=== PATIENT | male | born 1955 | race Caucasian/White ===

== ENCOUNTER 2020-05-01 13:04 | Emergency (ER) | payer OTHER, SELFPAY ==
[2020-05-01 13:10] VITALS: BP 125/66; PULSE 60; RESP 17; TEMP 36.5; O2SAT 94; BMI 29.8
--- NOTE | 2020-05-01 13:15 | XR_ITS ---
EXAMINATION: XR KNEE, LEFT CLINICAL INFORMATION: Fall, trauma, pain COMPARISON: None TECHNIQUE: Left knee is imaged in 3 views. FINDINGS: There is large suprapatellar effusion. The AP view shows focal subtle irregularity of the articular surface lateral tibial plateau which may represent occult fracture. There are no other fractures demonstrated. Hoffa's fat pad appears normal. There is borderline lateralization patella with mild lateral tilting patella. Atherosclerotic calcifications seen vasculature. XR/XR knee LT 3V IMPRESSION: 1. Large suprapatellar effusion. Subtle irregularity articular surface lateral tibial plateau may represent occult fracture. 2. Mild lateral tilting patella.
--- NOTE | 2020-05-01 14:16 | ED_ITS ---
HPI - Extremity Injury (Lower) General Chief Complaint: Extremity Injury, Lower Stated Complaint: Fall, knee pain Time Seen by Provider: 05/01/20 13:15 Source: patient Mode of arrival: wheelchair Limitations: no limitations History of Present Illness HPI Narrative: presenting with left knee pain after some fall yesterday. States left knee slightly more swollen. Pain with ambulation. Injury occurred due to slip and fall onto the knee. Denies any ot MD complaint: knee injury Severity: moderate Relieving factors: nothing Exacerbating factors: nothing Context: fall and direct blow Other symptoms: none Treatments prior to arrival: cold therapy Related Data Previous Rx's Medication Instructions Recorded oxycodone 5 mg PO BID PRN #10 tab 05/01/20 Allergies Allergy/AdvReac Type Severity Reaction Status Date / Time No Known Allergies Allergy Verified 05/01/20 13:13 Review of Systems Review of Systems: Constitutional: No Weight loss, No Fever, No Chills, No Night Sweats, No Fatigue, No Malaise ENT/Mouth: No Hearing loss, No Ear Pain, No Nasal Congestion, No Sinus Pain, No Hoarseness, No sore throat, No Rhinorrhea, No Swallowing Difficulty Eyes: No Eye Pain, No Swelling, No Redness Cardiovascular: No Chest Pain, No SOB, No Dyspnea on Exertion, No Orthopnea, No Edema, No Palpitations Respiratory: No Cough, No Sputum, No Wheezing, No Smoke Exposure, No Dyspnea Gastrointestinal: No Nausea, No Vomiting, No Diarrhea, No Constipation, No abdom inal Pain, No Hematochezia, No Melena Genitourinary: no irregular bleeding, No Dysuria, No Urinary Frequency, No Hematuria, No Urinary Incontinence, No Urgency, No Flank Pain, No Urinary Flow Changes, No Hesitancy Musculoskeletal: No joint pain, No Myalgias Skin: No Skin Lesions, No rash Neuro: No Weakness, No Numbness, No Paresthesias, No Loss of Consciousness, No Dizziness, No Headache Psych: No Social Issues Heme/Lymph: No Bruising, No Bleeding,No Lymphadenopathy Endocrine: No Polyuria, No Polydipsia, No Temperature Intolerance Yes all other systems are reviewed and are negative [facility] Past Medical History Attestation statement: The following information was validated with the patient. Medical History (Updated 05/01/20 @ 16:47 by Harpreet Gomez NP) Diabetes High blood pressure Hyperlipidemia Surgical History (Updated 05/01/20 @ 13:12 by Rachel Steel RN) Hx of heart artery stent Social History Social History Advance Directives: No Advance Directives Information Provided: No Physical Exam Vital Signs: Vital Signs: Vital Signs Temp Pulse Resp BP Pulse Ox 05/01/20 15:11 96.7 F L 49 L 16 125/60 97 05/01/20 13:10 97.7 F 60 17 125/66 94 Body Mass Index 29.8 Reviewed Const: General: cooperative and healthy appearing; No acute distress or intoxicated appearing Nutritional Appearance: average body habitus Orientation/consciousness: patient oriented x3 HENMT: Head: Yes normal to inspection Ears: hearing grossly normal bilaterally Eyes: General: appearance normal, both eyes and all related structures Visual Marin: normal visual marin by confrontation Neck: Neck: Yes normal visual inspection and No tender Thyroid: Thyroid normal Chest: Chest palpation & inspection: normal inspection of the chest Resp: Effort & Inspection: normal respiratory effort Cardio: Jugular venous distension: no JVD GI: Inspection: Yes normal to inspection Percussion: Yes normal to percussion Auscultation: normal bowel sounds : General: Yes no CVA tenderness Back/Spine/Pelvis: Back: no CVA tenderness Skin: General skin exam: no rashes or lesions noted Neuro: General: patient oriented x3 Extrem: Elbow/forearm/wrist images: 1. Slightly noticeable knee effusion. MDM - Extremity Injury (Lower) MDM Narrative Medical decision making narrative: X-ray reviewed with ortho on-call recommendation for CT of the knee rule out subtle fracture. CT was done with out acute findings as noted aside from a knee fusion. Patient was placed in knee immobilizer with instructions follow-up with orthopedics. Differential Diagnosis Differential diagnosis: Unlikely ankle sprain and strain, fracture of femur, fracture of hip, puncture wound of foot, fracture of toe and ankle fracture Imaging Data Knee CT: Radiologist's impression: Kvng Ayala Jr 64 M [address] [address] XRay Report Signed Patient: LucyKvng Liz Jr#: [id number] : 7Acct:[id number] Age/Sex: 64 / MADM Date: 05/01/20 Loc: HO.ED Attending Dr: Ordering Physician: Harpreet Gomez NP Date of Service: 05/01/20 Procedure(s): XR knee LT 3V Accession Number(s): [id number] cc: Harpreet Gomez TRAVEL CONSULTANT~ EXAMINATION: XR KNEE, LEFT CLINICAL INFORMATION: Fall, trauma, pain COMPARISON: None TECHNIQUE: Left knee is imaged in 3 views. FINDINGS: There is large suprapatellar effusion. The AP view shows focal subtle irregularity of the articular surface lateral tibial plateau which may represent occult fracture. There are no other fractures demonstrated. Hoffa's fat pad appears normal. There is borderline lateralization patella with mild lateral tilting patella. Atherosclerotic calcifications seen vasculature. XR/XR knee LT 3V IMPRESSION: 1. Large suprapatellar effusion. Subtle irregularity articular surface lateral tibial plateau may represent occult fracture. 2. Mild lateral tilting patella. Dictated By:RUDI MONZON MD Signed By:<Electronically signed by RUDI MONZON MD in OV>05/01/20 1348 DD/ 1315 TD/TT: Director Clinical Applications: [place] [address] CT Scan Report Signed Patient: Kvng Ayala [facility]#: [id number] : [id number]:[id number] Age/Sex: 64 / MADM Date: 05/01/20 Loc: HO.ED Attending Dr: Ordering Physician: Harpreet Gomez NP Date of Service: 05/01/20 Procedure(s): CT knee LT wo con Accession Number(s): [id number] cc: Harpreet Gomez TRAVEL CONSULTANT~ EXAMINATION: CT KNEE, LEFT CLINICAL INFORMATION: Fall, trauma, pain. Left suprapatellar effusion with subtle irregularity lateral tibial plateau on the film. Assess for fracture. COMPARISON: Plain radiographs left knee 05/01/2020 TECHNIQUE: CT is performed in the axial plane with additional 2-D coronal and sagittal reformatted images generated on the CT workstation. DOSE LOWERING TECHNIQUES: This CT examination was performed using dose optimization techniques as appropriate, variously including the following: *Automated exposure control *Adjustment of mA and/or kV according to patient size (this includes techniques or standardized protocols for targeted exams where dose is matched to indication/reason for exam; i.e. extremities or head) *Use of iterative reconstruction technique DLP: 179 mGy-cm FINDINGS: There is a moderate to large suprapatellar effusion. No fat fluid level. No soft tissue hematoma. No popliteal fossa cyst. There is no acute fracture or dislocation or destructive process. No irregularity articular surface tibial plateau. There is narrowing medial knee joint compartment and mild spurring. No erosive change or chondrocalcinosis. CT/CT knee LT wo con IMPRESSION: 1. Moderate to large suprapatellar effusion. No fat fluid level. No soft tissue hematoma. 2. No fracture or destructive process. 3. Mild degenerative changes medial knee joint compartment. Dictated By:RUDI MONZON MD Signed By:<Electronically signed by RUDI MONZON MD in OV>05/01/20 1607 DD/ 1445 TD/TT: Director Clinical Applications: [place] Discharge Plan Discharge Clinical Impression: Effusion of knee joint, left, Contusion of knee, Fall Patient Disposition: Home, Self-Care Instructions: Swollen Knee Joint (ED), Knee Pain (ED), Fall Prevention (ED), Knee Immobilizer (ED) Additional Instructions: copy of your imaging was provided to Use your knee immobilizer as instructed Ice, elevate Follow-up with orthopedic doctor as discussed Return if any concerns or worsening symptoms Thank you Prescriptions: New oxycodone 5 mg tablet 5 mg PO BID PRN (Reason: pain) Qty: 10 RF: 0 Referrals: Harjinder Preston MD [Physician] - 1 week Stand Alone Forms: Work/School Release
--- NOTE | 2020-05-01 14:45 | CT_ITS ---
EXAMINATION: CT KNEE, LEFT CLINICAL INFORMATION: Fall, trauma, pain. Left suprapatellar effusion with subtle irregularity lateral tibial plateau on the film. Assess for fracture. COMPARISON: Plain radiographs left knee 05/01/2020 TECHNIQUE: CT is performed in the axial plane with additional 2-D coronal and sagittal reformatted images generated on the CT workstation. DOSE LOWERING TECHNIQUES: This CT examination was performed using dose optimization techniques as appropriate, variously including the following: *Automated exposure control *Adjustment of mA and/or kV according to patient size (this includes techniques or standardized protocols for targeted exams where dose is matched to indication/reason for exam; i.e. extremities or head) *Use of iterative reconstruction technique DLP: 179 mGy-cm FINDINGS: There is a moderate to large suprapatellar effusion. No fat fluid level. No soft tissue hematoma. No popliteal fossa cyst. There is no acute fracture or dislocation or destructive process. No irregularity articular surface tibial plateau. There is narrowing medial knee joint compartment and mild spurring. No erosive change or chondrocalcinosis. CT/CT knee LT wo con IMPRESSION: 1. Moderate to large suprapatellar effusion. No fat fluid level. No soft tissue hematoma. 2. No fracture or destructive process. 3. Mild degenerative changes medial knee joint compartment.
[2020-05-01 15:11] VITALS: BP 125/60; PULSE 49; RESP 16; TEMP 35.9; O2SAT 97
== END 2020-05-01 17:29 | disposition home or self-care (01) ==
PROVIDERS: Emergency Provider Emergency Medicine
DX: S80.02XA Contusion of left knee, initial encounter (principal); M25.562 Pain in left knee; W01.0XXA Fall on same level from slipping, tripping and stumbling without subsequent striking against object, initial encounter; Y93.01 Activity, walking, marching and hiking; Y92.9 Unspecified place or not applicable
CPT/HCPCS: 73562; 73700; 99283; 99284

== ENCOUNTER 2024-10-17 11:06 | Outpatient (AMB) | payer MEDICARE, SELFPAY ==
--- NOTE | 2024-10-17 11:09 | A.OFFPC_ITS ---
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 Has been out of medication for a few months. Daughter got [place] Lisinop[place] 40mg [place]. Has been on that for a month. Nursing Unit Coordinator Required: No Allergies No Known Allergies Allergy (Verified 05/01/20 13:13) Medication List - Last Reconciled 10/17/24 by Mirian Bermudez PA-C atorvastatin 40 mg PO BEDTIME tmywntcty-piytcpjz-fihebvm ala (Biktarvy) PO escitalopram oxalate 10 mg PO DAILY insulin glargine (Lantus Solostar U-100 Insulin) 32 units subcut lisinopril 40 mg PO DAILY metformin 1,000 mg PO BID Tobacco use date assessed: 10/17/24 Fall risk assessment: 1 Fall in past year Last assessed Fall Risk: 10/17/24 Dental Screening Dental Screen Date: 10/17/24 Did you have a dental visit in the last 12 months?: No Did you have a dental problem in the last 6 months where you did not have access to dental care?: No Was dental information given to patient?: Patient declined 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 He is transferring from [place] and moved here about a year ago. He has a hx of HIV, dyslipidemia, htn, CAD s/p stents, and t2dm. No records available. -he has been getting his medication from [facility] when his family members traveled there. -he states that he was traveling with hi s between [place] and [place] for the past year but recently had a camper breakdown it has been unable to travel. CV: he was following with cardiology in [facility]. He states he has 3 stents placed in 2015. He was on plavix until 2022 when he had a colonoscopy and 3 polyps removed that then caused him to bleed. He states he needed multiple blood transfusions. He is on lisinopril 40 mg and bp today is 126/72. He is on atorvastatin 40 mg for cholesterol management. Endo: He states he is a t2dm and was dx around 1989. He is on lantus 32 units nightly, metformin 1000 mg bid, and Trulicity 1.5 mg weekly. No low blood sugars -He has tried actos but caused hypoglyce ramila ID: on Biktarvy. He was dx around 2009. Psych: He is on lexapro 10 mg. He does not feel like it is effective. He states his mother is very unhealthy. He states that he also has stressors regarding his current living arrangement and family dynamics. He has a hard time falling asleep and staying asleep. He has a hard time but does not want to see a therapist. Colonoscopy: has polyps overdue-states that they were calling him to schedule it this year. PSA: Overdue [facility] Medical History (Updated 10/17/24 @ 11:52 by Mirian Bermudez PA-C) Hyperlipidemia Diabetes High blood pressure Surgical History (Updated 05/01/20 @ 13:12 by Rachel Steel RN) Hx of heart artery stent Social History Housing: House Housing Other:: Lives with melina. Normally lived in an RV, but is currently in the shop Patient Tobacco Use Status: Never used Tobacco e-Cigarette/Vaping Use: Never Used Second Hand Smoke Exposure: Yes service: No Current occupational status: retired Cognitive needs: No Hearing needs: Yes (Hearing aids. Did not put them in today. ) Vision needs: No Questionnaire PHQ-9 Over the last 2 weeks, how often have you been bothered by any of the following problems? 1. Little interest or pleasure in doing things: several days 2. Feeling down, depressed, or hopeless: several days 3. Trouble falling or staying asleep, or sleeping too much: several days 4. Feeling tired or having little energy: several days 5. Poor appetite or overeating: several days 6. Feeling bad about yourself - or that you are a failure or have let yourself or your family down: several days 7. Trouble concentrating on things, such as reading the newspaper or watching television: several days 8. Moving or speaking so slowly that other people could have noticed. Or the opposite - being so fidgety or restless that you have been moving around a lot more than usual: not at all 9. Thoughts that you would be better off or of hurting yourself in some way: not at all Total score: 7 Depression Screening Interpretation: Positive Depression Screening Follow-up: Existing condition, In treatment, Change in Medication and Follow-up Visit Requested Depression Screening Done: Yes 44506 - PHQ-9 Billing: Yes Source: Developed by Drs. Kvng Viera, Zonia Schilling, Chandra Torres and colleagues, with an educational joss from [employer]. Thrive Questionnaire Date Thrive assessed: 10/17/24 I am a: Patient What is your living situation today?: I have a steady place to live Within the past 12 months, did the food you bought not last and you didn't have the money to get more?: Sometimes True Within the past 12 months, did you worry whether your food would run out before you got money to buy more?: Sometimes True Do you have trouble paying for medicines?: Yes Do you have trouble getting transportation to medical appointments?: No Do you have trouble paying your heating and electricity bill?: Yes Do you have trouble taking care of your child, family member or friend?: No Do you have trouble with day-to-day activities such as bathing, preparing meals, shopping, managing finances, etc.?: No Are you currently unemployed and looking for a job?: No Are you interested in more education?: No Please select the resources that you would like help with: Food, Paying for medicine, Utilities and Job search/training Currently or been in a relationship where the following occur: No concerns reported THRIVE Score: 3 AUDIT C Alcohol Use Questionnaire (AUDIT-C) 1. How often do you have a drink containing alcohol?: Never 3. How often do you have six or more drinks on one occasion?: Never Total Score: 0 EDIS-7 AMB Questionnaire EDIS-7 Date EDIS - 7 assessed: 10/17/24 Feeling nervous, anxious, or on edge: 1 = Several days Not being able to stop or control worryin = Several days Worrying too much about different things: 1 = Several days Trouble relaxin = Several days Being so restless that it is hard to sit still: 0 = Not at all Becoming easily annoyed or irritable: 1 = Several days Feeling afraid as if something awful might happen: 0 = Not at all Total EDIS-7 score (0-4 normal; 5-9 mild; 10-14 moderate; 15-21 severe): 5 Source: Developed by Drs. Kvng Viera, Zonia Schilling, Chandra Torres and colleagues, with an educational joss from [employer]. EDIS-7 Assessment Billing EDIS-7 Assessment Tool: EDIS-7 Assessment 98077 Physical exam (Primary Care) Vital Signs: Last Vital Signs Pulse 66 10/17/24 11:18 Resp 16 10/17/24 11:18 BP 126/72 10/17/24 11:18 Pulse Ox 99 10/17/24 11:18 Oxygen Delivery Method Room Air 10/17/24 11:18 BMI result Body Mass Index 28.4 Tobacco/Smoking Status: Tobacco use Status Tobacco use date assessed 10/17/24 10/17/24 11:24 Patient Tobacco Use Status Never used Tobacco 10/17/24 11:24 e-Cigarette/Vaping Use Never Used 10/17/24 11:24 PHQ-9: PHQ-9 Score PHQ-9: Total score 7 10/17/24 11:40 Depression Screening Interpretation: Positive Depression Screening Follow-up: Existing condition, In treatment, Change in Medication and Follow-up Visit Requested Thrive Assessment: Date of Thrive Assessment Date Thrive assessed 10/17/24 10/17/24 11:31 Currently or been in a relationship where the following occur: No concerns reported Const Orientation/consciousness: patient oriented x3 HENMT Ears: hearing grossly normal bilaterally Neck Thyroid: Thyroid normal Lymphatic: no lymphadenopathy noted Resp Auscultation: clear to auscultation bilaterally Cardio Rate: regular rate Rhythm: regular rhythm Heart sounds: S1 normal heart sound present and S2 normal heart sound present GI Inspection: Yes normal to inspection Palpation (GI): Soft to palpation and Other GI palpation findings present (nontender, no cva tenderness) Auscultation: normoactive bowel sounds Rectal Exam - Male: Yes deferred Skin General skin exam: no rashes or lesions noted Neuro General: patient oriented x3, gait normal and no focal motor deficits Coding Level of Care Code New Pt Level 5 (29037) Complex EM visit Add On G2211 Diagnoses High blood pressure I10 Type 2 diabetes mellitus, with long-term current use of insulin E11.9; Z79.4 CAD (coronary artery disease) I25.10 Anxiety with depression F41.8 Colon polyps K63.5 HIV (human immunodeficiency virus infection) Z21 Hx of skin malignancy Z85.828 COPD (chronic obstructive pulmonary disease) J44.9 Additional Codes EDIS-7 Assessment Billing - EDIS-7 Assessment Tool: EDIS-7 Assessment 42365 ([id number]) PHQ-9 - 43624 - PHQ-9 Billing: Yes ([id number]) Assessment & Plan Assessment & Plan (1) High blood pressure: Code(s): I10 - Essential (primary) hypertension Category: Medical Plan: Refilled lisinopril today. Labs ordered. (2) Type 2 diabetes mellitus, with long-term current use of insulin: Code(s): E11.9 - Type 2 diabetes mellitus without complications; Z79.4 - shelter (current) use of insulin Category: Medical Plan: Refilled medications. Diabetic labs ordered. Has been mostly compliant with his regimen Discussed starting a CGM but wants to hold off on this. I have referred him to endocrinology. I have referred him to Ophthalmology. (3) CAD (coronary artery disease): Code(s): I25.10 - Atherosclerotic heart disease of alutiiq coronary artery without angina pectoris Category: Medical Plan: Referral to cardiology. Advised that he needs to sign a release for records. (4) Anxiety with depression: Code(s): F41.8 - Other specified anxiety disorders Category: Medical Plan: He will continue on Lexapro. We will start trazodone for sleep. Discussed risks and benefits and adverse effects of this medication. Short term follow up. (5) Colon polyps: Code(s): K63.5 - Polyp of colon Category: Medical Plan: Again discussed that he needs records. I have referred him to GI. (6) HIV (human immunodeficiency virus infection): Code(s): Z21 - Asymptomatic human immunodeficiency virus [HIV] infection status Category: Medical Plan: States that his HIV has been undetectable for years. He is still on Biktarvy and has a prescription from [facility]. I have referred him to Infectious Disease. (7) Hx of skin malignancy: Code(s): Z85.828 - Personal history of other malignant neoplasm of skin Category: Medical Plan: Reports a personal history of unknown skin cancer type. He states that he had something cut off of him a few years ago and was told to go in for skin checks every 6-12 months. (8) COPD (chronic obstructive pulmonary disease): Code(s): J44.9 - Chronic obstructive pulmonary disease, unspecified Category: Medical Plan: Reports a history of COPD however denies ever smoking. Chest x-ray ordered. Pulmonary function testing ordered. Currently on Spiriva and albuterol as needed. Plan Spent about 70 minutes in qjnj-fo-tjqj time today reviewing his medical problems, history, medications and ordering labs, referrals. Advised short term follow up. Showed him how to sign a release for records. Orders: Orders Comprehensive [place]. Panel Fast 10/17/24 E11.9 - Type 2 diabetes mellitus without complications, F41.8 - Other specified anxiety disorders, I10 - Essential (primary) hypertension, I25.10 - Atherosclerotic heart disease of alutiiq coronary artery without angina pectoris, Z21 - Asymptomatic human immunodeficiency virus [HIV] infection status, Z79.4 - shelter (current) use of insulin TSH reflex Free T4 10/17/24 E11.9 - Type 2 diabetes mellitus without complications, F41.8 - Other specified anxiety disorders, I10 - Essential (primary) hypertension, I25.10 - Atherosclerotic heart disease of alutiiq coronary artery without angina pectoris, Z21 - Asymptomatic human immunodeficiency virus [HIV] infection status, 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 HIV-1 RNA QN PCR Expanded 10/17/24 E11.9 - Type 2 diabetes mellitus without complications, F41.8 - Other specified anxiety disorders, I10 - Essential (primary) hypertension, I25.10 - Atherosclerotic heart disease of alutiiq coronary artery without angina pectoris, Z21 - Asymptomatic human immunodeficiency virus [HIV] infection status, 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 Complete Blood Count Auto Diff 10/17/24 E11.9 - Type 2 diabetes mellitus without complications, F41.8 - Other specified anxiety disorders, I10 - Essential (primary) hypertension, I25.10 - Atherosclerotic heart disease of alutiiq coronary artery without angina pectoris, Z21 - Asymptomatic human immunodeficiency virus [HIV] infection status, 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 Lipid Panel 10/17/24 E11.9 - Type 2 diabetes mellitus without complications, F41.8 - Other specified anxiety disorders, I10 - Essential (primary) hypertension, I25.10 - Atherosclerotic heart disease of alutiiq coronary artery without angina pectoris, Z21 - Asymptomatic human immunodeficiency virus [HIV] infection status, Z79.4 - shelter (current) use of insulin Microalbumin, Random (w Creat) 10/17/24 E11.9 - Type 2 diabetes mellitus without complications, F41.8 - Other specified anxiety disorders, I10 - Essential (primary) hypertension, I25.10 - Atherosclerotic heart disease of alutiiq coronary artery without angina pectoris, Z21 - Asymptomatic human immunodeficiency virus [HIV] infection status, Z79.4 - shelter (current) use of insulin Prostate Specific Antigen Scr 10/17/24 Z01.89 - Encounter for other specified special examinations XR chest 2V 10/17/24 J44.9 - Chronic obstructive pulmonary disease, unspecified PFT pulmonary function test 10/17/24 J44.9 - Chronic obstructive pulmonary disease, unspecified Referrals Gastroenterology Referral K63.5 - Polyp of colon Endocrinology Referral E11.9 - Type 2 diabetes mellitus without complications, I25.10 - Atherosclerotic heart disease of alutiiq coronary artery without angina pectoris, Z79.4 - shelter (current) use of insulin Infectious Disease Referral Z21 - Asymptomatic human immunodeficiency virus [HIV] infection status Dermatology Referral Z85.828 - Personal history of other malignant neoplasm of skin Ophthalmology Referral E11.9 - Type 2 diabetes mellitus without complications, Z79.4 - shelter (current) use of insulin Cardiology Referral E11.9 - Type 2 diabetes mellitus without complications, I10 - Essential (primary) hypertension, I25.10 - Atherosclerotic heart disease of alutiiq coronary artery without angina pectoris, 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
[2024-10-17 11:18] VITALS: BP 126/72; PULSE 66; RESP 16; O2SAT 99; BMI 28.4
--- OUTSIDE RECORDS SUMMARY | 2024-10-17 13:07 | XMS_ITS | Encounter Summary ---
Author Organization [facility] Address [address] [place] [address] Care Team Providers Care Warehouse Stocker Name Role Phone Romero Licea MD Primary Care Provi clifton Shana Mike NP Unavailable [phone] Julius Canseco MD Unavailable Encounter Details Date Type Department Care Team (Late st Contact Info) Description 10/22/2021 Procedure Pass [facility] Surgery [address] [place] [address] Social History Tobacco Use Types Packs/Day Years Used Date Smoking Tobacco: Former Cigarettes 2 10 Smokeless Tobacco: Never Alcohol Use Standard Drinks/Week Comments No 0 (1 standard drink = 0.6 oz pur e alcohol) Sex and Gender Information Value Date Recorded Sex Assigned at Not on file Gender Identity Not on file Sexual Orientation Not on file COVID-19 Exposure Response Date Recorded In the last month, have you been in contact with someone who was confirmed or suspected to have Coronavirus / COVID-19? No / Unsure 10/08/2021 2:43 PM MST documented as of this encounter Plan of Treatment Not on file documented as of this encounter Visit Diagnoses Not on filedocumented in this encounter Care Teams Warehouse Stocker Relationship Specialty Start Date End Date Romero Licea MD [address] [place], [place] [phone] PCP - General Family Medicine 08/03/21 Shana Mike, JAYNA [address] [place] [address] Nurse Practitioner Physical Medicine and Rehabilitation 11/15/22 Julius Canseco MD [address] [place] [address] Consulting Physician Physical Medicine and Rehabilitation 04/11/23 documented as of this encounter
--- OUTSIDE RECORDS SUMMARY | 2024-10-17 13:07 | XMS_ITS | Encounter Summary ---
Author Organization [employer] Address [address] [place] [address] Care Team Providers Care Dress Draper Name Role Phone Romero Licea MD Primary Care Provider Shanae Zarate MD Unavailable Princess Monroy POSTAGE MACHINE OPERATOR Unavailable [phone] Luh NashD Unavailable Cathy Tee RN Unavailable Romero Licea MD Unavailable Renee Mora DO Unavailable Renee Mora DO Primary Care Provider Reason for Visit * Reason Comments Med Refill Encounter Details Date Type Department Care Team (Late st Contact Info) Description 05/04/2019 Refill [facility] [address] [place], [place] [id number] Nirmal Huizar MD [address] [place] [address] Social History Tobacco Use Types Packs/Day Years Used Date Smoking Tobacco: Never Assessed Sex and Gender Information Value Date Recorded Sex Assigned at Not on file Legal Sex Male 1:57 AM [facility] Gender Identity Not on file Sexual Orientation Not on file documented as of this encounter Plan of Treatment Not on file documented as of this encounter Visit Diagnoses Not on filedocumented in this encounter Care Teams Dress Draper Relationship Specialty Start Date End Date Romero Licae MD PCP - General Family Medicine 06/27/19 05/27/24 Romero Licea MD [address] [place] [address] PCP - Medicare Advantage - Attributed PCP 10/09/22 07/10/23 Renee Mora DO [address] [place] [address] PCP - Medicare Advantage - Attributed PCP 07/11/23 06/09/24 Renee Mora DO [address] [place] [address] PCP - General Family Medicine 06/04/24 Shanae Zarate MD [address] [place] [address] Consulting Physician Cardiology 10/13/20 Princess Monroy LCSW [address] [address] [place] [address] Dye Beck Reel Operator Bookmaker Map 10/31/20 05/27/24 Luh Nash, HunterD [address] [place] [address] [place] [address] Clinical Pharmacist Pharmacy 11/24/20 03/04/22 Cathy Tee, RN [address] [place] [address], [place] [address] Cupola Melter Helper (PH Nurse) Care Management 08/17/21 documented as of this encounter
--- OUTSIDE RECORDS SUMMARY | 2024-10-17 13:07 | XMS_ITS | Encounter Summary ---
Author Organization [facility] Address [address] [place] [address] Care Team Providers Care Relief Driller Name Role Phone Romero Licea MD Primary Care Provi clifton Shana Mike NP Unavailable [phone] Julius Canseco MD Unavailable [phone] Encounter Details Date Type Department Care Team (Late st Contact Info) Description 08/03/2021 Procedure Pass [facility] Endoscopy [address] [place] [address] Social History Tobacco Use Types Packs/Day Years [...] have Coronavirus / COVID-19? No / Unsure 08/03/2021 12:37 PM MST documented as of this encounter Plan of Treatment Not on file documented as of this encounter Visit Diagnoses Not on filedocumented in this encounter Care Teams Relief Driller Relationship Specialty Start Date End Date Romero Licea MD [address] [place], [place] [phone] PCP - General Family Medicine 08/03/21 Shana Mike, FERRIS WHEEL OPERATOR [address] [place], [place] [phone] Nurse Practitioner Physical Medicine and Rehabilitation 11/15/22 Julius Canseco MD [address] [place], [place] [id number] Consulting Physician Physical Medicine and Rehabilitation 04/11/23 documented as of this encounter
--- OUTSIDE RECORDS SUMMARY | 2024-10-17 13:07 | XMS_ITS | Encounter Summary ---
Author Organization [facility] Address [address] [place] [address] Care Team Providers Care Manager Dairy Name Role Phone Romero Licea MD Primary Care Provi clifton Shana Mike NP Unavailable [phone] Julius Canseco MD Unavailable Encounter Details Date Type Department Care Team (Late st Contact Info) Description 04/11/2023 Procedure Pass [facility] Surgery [address] [place] [address] Social History Tobacco Use Types [...] on filedocumented in this encounter Care Teams Manager Dairy Relationship Specialty Start Date End Date Romero Licea MD [address] [place], [place] [phone] PCP - General Family Medicine 08/03/21 Shana Mike, JAYNA [address] [place] [address] Nurse Practitioner Physical Medicine and Rehabilitation 11/15/22 Julius Canseco MD [address] [place] [address] Consulting Physician Physical Medicine and Rehabilitation 04/11/23 documented as of this encounter
--- OUTSIDE RECORDS SUMMARY | 2024-10-17 13:07 | XMS_ITS | Encounter Summary ---
Author Organization [employer] Address [address] [place] [address] Care Team Providers Care Can Repairer Name Role Phone Romero Licea MD Primary Care Provider Shanae Zarate MD Unavailable Princess Monroy ENDODONTICS DENTIST Unavailable [phone] Luh NashD Unavailable Cathy Tee RN Unavailable Romero Licea MD Unavailable Renee Mora DO Unavailable Renee Mora DO Primary Care Provider Reason for Visit * Reason Comments Med Refill Encounter Details Date Type Department Care Team (Late st Contact Info) Description 06/27/2019 Refill [facility] [address] [place], [place] [phone] Nirmal Huizar MD [address] [place] [address] Social History Tobacco Use Types Packs/Day Years Used Date Smoking Tobacco: Never Assessed Sex and Gender Information Value Date Recorded Sex Assigned at Not on file Legal Sex Male 1:57 AM [facility] Gender Identity Not on file Sexual Orientation Not on file documented as of this encounter Plan of Treatment Not on file documented as of this encounter Visit Diagnoses Not on filedocumented in this encounter Care Teams Can Repairer Relationship Specialty Start Date End Date Romero Licea MD PCP - General Family Medicine 06/27/19 05/27/24 Romero Licea MD [address] [place] [address] PCP - Medicare Advantage - Attributed PCP 10/09/22 07/10/23 Renee Mora DO [address] [place] [address] PCP - Medicare Advantage - Attributed PCP 07/11/23 06/09/24 Renee Mora DO [address] [place] [address] PCP - General Family Medicine 06/04/24 Shanae Zarate MD [address] [place] [address] Consulting Physician Cardiology 10/13/20 Princess Monroy LCSW [address] [place] [address] Surgical Appliance Fitter Machining Associate 10/31/20 05/27/24 Luh Nash, HunterD [address] [place] [address] [place] [address] Clinical Pharmacist Pharmacy 11/24/20 03/04/22 Cathy Tee, RN [address] [place] [address], [place] [address] Medical Aides Teacher (PH Nurse) Care Management 08/17/21 documented as of this encounter
--- OUTSIDE RECORDS SUMMARY | 2024-10-17 13:07 | XMS_ITS | Encounter Summary ---
Author Organization [facility] Address [address] [place] [address] Care Team Providers Care Hospital Fellow Name Role Phone Romero Licea MD Primary Care Provi clifton Shana Mike NP Unavailable [phone] Julius Canseco MD Unavailable Encounter Details Date Type Department Care Team (Late st Contact Info) Description 01/21/2022 Procedure Pass [facility] Surgery [address] [place] [address] Social History Tobacco Use Types [...] Exposure Response Date Recorded In the last 10 days, have yo u been in contact with someone who was confirmed or suspected to have Coronavirus/COVID-19? No / Unsure 01/21/2022 2:33 PM MST documented as of this encounter Plan of Treatment Not on file documented as of this encounter Visit Diagnoses Not on filedocumented in this encounter Care Teams Hospital Fellow Relationship Specialty Start Date End Date Romero Licea MD [address] [place], [place] [id number] PCP - General Family Medicine 08/03/21 Shana Mike, DENTAL SCHEDULING COORDINATOR [address] [place] [address] Nurse Practitioner Physical Medicine and Rehabilitation 11/15/22 Julius Canseco MD [address] [place] [address] Consulting Physician Physical Medicine and Rehabilitation 04/11/23 documented as of this encounter
--- OUTSIDE RECORDS SUMMARY | 2024-10-17 13:07 | XMS_ITS | Encounter Summary ---
Author Organization [employer] Address [address] [place] [address] Care Team Providers Care Firmware Manager Name Role Phone Romero Licea MD Primary Care Provider Shanae Zarate MD Unavailable Princess Monroy SUPERVISOR PLEATING Unavailable [phone] Luh NashD Unavailable Cathy Tee RN Unavailable Romero Licea MD Unavailable Renee Mora DO Unavailable Renee Mora DO Primary Care Provider Reason for Visit * Reason Comments Med Refill Encounter Details Date Type Department Care Team (Late st Contact Info) Description 05/25/2019 Refill [facility] [address] [place], [place] [id number] Nirmal Huizar MD [address] [place] [address] Social History Tobacco Use Types Packs/Day Years Used Date Smoking Tobacco: Never Assessed Sex and Gender Information Value Date Recorded Sex Assigned at Not on file Legal Sex Male 1:57 AM [facility] Gender Identity Not on file Sexual Orientation Not on file documented as of this encounter Plan of Treatment Not on file documented as of this encounter Visit Diagnoses Not on filedocumented in this encounter Care Teams Firmware Manager Relationship Specialty Start Date End Date Romero Licea MD PCP - General Family Medicine 06/27/19 05/27/24 Romero Licea MD [address] [place] [address] PCP - Medicare Advantage - Attributed PCP 10/09/22 07/10/23 Renee Mora DO [address] [place] [address] PCP - Medicare Advantage - Attributed PCP 07/11/23 06/09/24 Renee Mora DO [address] [place] [address] PCP - General Family Medicine 06/04/24 Shanea Zarate MD [address] [facility] [place] [address] Consulting Physician Cardiology 10/13/20 Princess Monroy LCSW [address] [place] [address] Professor Of Criminal Justice Produce Field Merchandiser 10/31/20 05/27/24 Luh Nash, HunterD [address] [place] [address] Clinical Pharmacist Pharmacy 11/24/20 03/04/22 Cathy Tee, RN [address] [place] [address], [place] [address] Market Development Trainer (PH Nurse) Care Management 08/17/21 documented as of this encounter
--- OUTSIDE RECORDS SUMMARY | 2024-10-17 13:07 | XMS_ITS | Encounter Summary ---
Author Organization [facility] Address [address] [place] [address] Care Team Providers Care Almond Sorter Name Role Phone Romero Licea MD Primary Care Provi clifton Shana Mike TIRE SPECIALIST Unavailable [phone] Julius Canseco MD Unavailable [phone] Encounter Details Date Type Department Care Team (Late st Contact Info) Description 04/25/2023 Procedure Pass [facility] Surgery [address] [place] [address] Social History Tobacco Use Types [...] on filedocumented in this encounter Care Teams Almond Sorter Relationship Specialty Start Date End Date Romero Licea MD [address] [place], [place] [id number] PCP - General Family Medicine 08/03/21 Shana iMke, JAYNA [address] [place] [address] Nurse Practitioner Physical Medicine and Rehabilitation 11/15/22 Julius Canseco MD [address] [place] [address] Consulting Physician Physical Medicine and Rehabilitation 04/11/23 documented as of this encounter
--- OUTSIDE RECORDS SUMMARY | 2024-10-17 13:07 | XMS_ITS | Encounter Summary ---
Author Organization [facility] Address [address] [place] [address] Care Team Providers Care Mass Spectrometry Manager Name Role Phone Romero Licea MD Primary Care Provi clifton Shana Mike NP Unavailable [phone] Julius Canseco MD Unavailable Encounter Details Date Type Department Care Team (Late st Contact Info) Description 10/08/2021 Procedure Pass [facility] Surgery [address] [place] [address] Social History Tobacco Use Types [...] on filedocumented in this encounter Care Teams Mass Spectrometry Manager Relationship Specialty Start Date End Date Romero Licea MD [address] [place], [place] [id number] PCP - General Family Medicine 08/03/21 Shana Mike, JAYNA [address] [place] [address] Nurse Practitioner Physical Medicine and Rehabilitation 11/15/22 Julius Canseco MD [address] [place] [address] Consulting Physician Physical Medicine and Rehabilitation 04/11/23 documented as of this encounter
--- OUTSIDE RECORDS SUMMARY | 2024-10-17 13:07 | XMS_ITS | Encounter Summary ---
Author Organization [facility] Address [address] [place] [address] Care Team Providers Care Dispensary Attendant Name Role Phone Ubaldo Spring MD Primary Care Provider [phone] Romero Licea MD Primary Care Provi clifton Shana Mike NP Unavailable [phone] Julius Canseco MD Unavailable Encounter Details Date Type Department Care Team (Late st Contact Info) Description 09/23/2017 Procedure Pass [facility] Endoscopy [address] [place] [address] Social History Tobacco Use Types Packs/Day Years Used Date Smoking Tobacco: Former Cigarettes 2 10 2 - 2010 Smokeless Tobacco: Never Alcohol Use Standard Drinks/Week [...] on filedocumented in this encounter Care Teams Dispensary Attendant Relationship Specialty Start Date End Date Ubaldo Spring MD PCP - General Family Medicine 09/20/17 08/02/21 Romero Licea MD [address] [place] [address] PCP - General Family Medicine 08/03/21 Shana Mike NP [address] [place] [address] Nurse Practitioner Physical Medicine and Rehabilitation 11/15/22 Julius Canseco MD [address] [place] [address] Consulting Physician Physical Medicine and Rehabilitation 04/11/23 documented as of this encounter
--- OUTSIDE RECORDS SUMMARY | 2024-10-17 13:07 | XMS_ITS | Encounter Summary ---
Author Organization [employer] Address [address] [place] [address] Care Team Providers Care Pcb Designer Name Role Phone Shanae Zarate MD Unavailable Renee Mora DO Primary Care Provider [phone] Reason for Visit * Reason Comments Med Refill Encounter Details Date Type Department Care Team (Late st Contact Info) Description 06/23/2024 Refill [facility] [address] [place] [address] [place] [address] [place] [address] [address] [place], [place] [id number] Diabetic polyneuropathy associated with type 2 diabetes mellitus ([facility]/HCC) Social History Tobacco Use Types Packs/Day Years Used Date Smoking Tobacco: Never Smokeless Tobacco: Never Alcohol Use Standard Drinks/Week Comments Not Currently 0 (1 standard drink = 0.6 oz pur e alcohol) Humiliation, Afraid, Rape, and Kick questionnair e Answer Date Recorded Within the last year, have y ou been afraid of your partner or ex-partner? No 07/21/2022 Within the last year, have y ou been humiliated or emotionally abused in other ways by your partner or ex-partner? No Within the last year, have y ou been kicked, hit, slapped, or otherwise physically hurt by your partner or ex-partner? No 07/21/2022 Within the last year, have y ou been raped or forced to have any kind of sexual activity by your partner or ex-partner? No 07/21/2022 Social Connection and Isolation Panel [NHANES] A nswer Date Recorded In a typical week, how many times do you talk on the phone with family, friends, or neighbors? Three times a week 07/21/19 How often do you get togethe r with friends or relatives? Never 07/21/2022 How often do you attend chur ch or congregation services? Patient declined 07/21/2022 Do you belong to any clubs o r organizations such as orthodoxy groups, unions, fraternal or athletic groups, or school groups? No 07/21/2022 How often do you attend meet ings of the clubs or organizations you belong to? Never 07/21/2022 Are you , , di vorced, , never , or living with a partner? Living with partner 07/21/2022 AUDIT-C Answer Date Recorded Q1: How often do you have a drink containing alcohol? Never 07/21/2022 Q2: How many drinks containi ng alcohol do you have on a typical day when you are drinking? Patient does not drink Q3: How often do you have si x or more drinks on one occasion? Never 07/21/2022 Overall Financial Resource Strain (CARDIA) Answe r Date Recorded How hard is it for you to pa y for the very basics like food, housing, medical care, and heating? Somewhat hard 07/21/2022 PHQ-2 Answer Date Recorded Depression Risk (PHQ2) Score [address] [facility] - Occupational Stress Questionnaire Answer Date Recorded Do you feel stress - tense, restless, nervous, or anxious, or unable to sleep at night because your mind is troubled all the time - these days? Only a little 07/21/2022 Exercise Vital Sign Answer Date Recorde d On average, how many days pe r week do you engage in moderate to strenuous exercise (like a brisk walk)? 1 day 07/21/2022 On average, how many minutes do you engage in exercise at this level? 10 min 07/21/2022 Hunger Vital Sign Answer Date Recorded Within the past 12 months, y ou worried that your food would run out before you got the money to buy more. Never true 07/21/19 23 Within the past 12 months, t he food you bought just didn't last and you didn't have money to get more. Never true 07/21/2022 PRAPARE - Transportation Answer Date Re corded In the past 12 months, has l ack of transportation kept you from medical appointments or from getting medications? No 07/11 In the past 12 months, has l ack of transportation kept you from meetings, work, or from getting things needed for daily living? No 07/21/2022 Housing Stability Vital Sign Answer Franklin e Recorded In the last 12 months, was t here a time when you were not able to pay the mortgage or rent on time? Yes 07/21/2022 In the last 12 months, how many places have you lived? 1 07/21/2022 In the last 12 months, was t here a time when you did not have a steady place to sleep or slept in a usp (including now)? No 07/21/2022 Sex and Gender Information Value Date Recorded Sex Assigned at Not on file Legal Sex Male 1:57 AM MST Gender Identity Not on file Sexual Orientation Not on file documented as of this encounter Miscellaneous Notes * Telephone Encounter - Jeffry Baltazar CPHT - 06/26/2024 9:31 AM MST RFA TEAM MEDICATION REQUEST DOES NOT MEET PROTOCOL GUIDELINES. REASON: -FORMER RACHELL PT. HAS NOT EST CARE WITH NEW PROVIDER LAST VISIT DATE: 07/01/2023 documented in this encounter Plan of Treatment Not on file documented as of this encounter Visit Diagnoses Diagnosis Diabetic polyneuropathy associated with type 2 diabetes mellitus (CMS/HCC) documented in this encounter Care Teams Pcb Designer Relationship Specialty Start Date End Date Renee Mora DO [address] [place] [address] PCP - General Family Medicine 06/04/24 Shanae Zarate MD [address] [place] [address] Consulting Physician Cardiology 10/13/20 documented as of this encounter
--- OUTSIDE RECORDS SUMMARY | 2024-10-17 13:07 | XMS_ITS | Encounter Summary ---
Author Organization [facility] Address [address] [place] [address] Care Team Providers Care Roustabout Crew Leader Name Role Phone Ubaldo Spring MD Primary Care Provider [phone] Romero Licea MD Primary Care Provi clifton Shana Mike NP Unavailable + [phone] Julius Canseco MD Unavailable Encounter Details Date Type Department Care Team (Late st Contact Info) Description 09/24/2017 Procedure Pass [facility] Endoscopy [address] [place] [address] Social History Tobacco Use Types [...] on filedocumented in this encounter Care Teams Roustabout Crew Leader Relationship Specialty Start Date End Date Ubaldo Spring MD PCP - General Family Medicine 09/20/17 08/02/21 Romero Licea MD [address] [place] [address] PCP - General Family Medicine 08/03/21 Shana Mike NP [address] [place] [address] Nurse Practitioner Physical Medicine and Rehabilitation 11/15/22 Julius Canseco MD [address] [place] [address] Consulting Physician Physical Medicine and Rehabilitation 04/11/23 documented as of this encounter
--- OUTSIDE RECORDS SUMMARY | 2024-10-17 13:07 | XMS_ITS | Clinical Summary ---
Author Organization [employer] Address [address] [place] [address] Care Team Providers Care Field Supervisor Name Role Phone Shanae Zarate MD Unavailable Renee Mora DO Primary Care Provider [phone] Allergies Active Allergy Reactions Criticality Noted Date Comments No Known Allergies 10/01/2019 Medications aspirin 81 mg tablet Take 81 mg by mouth 1 (one) time each day. Active glucose blood test stripIndications:D iabetic polyneuropathy associated with type 2 diabetes mellitus (CMS/HCC) 1 each by Other route 4 times a day. Use as instructed one touch 200 each 3 08/19/19 22 Active ipratropium-albute roL (DUO-NEB) 0.5-2.5 mg/3 mL nebulizer solutionIndication s:Chronic obstructive pulmonary disease, unspecified COPD type (CMS/HCC) INHALE 3 ML BY NEBULIZATION 4 (FOUR) TIMES A DAY. DISPENSE ENOUGH FOR ONE MONTH 360 mL 08/24/19 22 Active tiotropium (Spiriva with HandiHaler) 18 mcg inhalation capsuleIndications :Chronic obstructive pulmonary disease, unspecified COPD type (CMS/HCC) INHALE CONTENTS OF 1 CAPSULE BY MOUTH VIA HANDIHALER 1 (ONE) TIME EACH DAY AT THE SAME TIME. 90 capsule 05/05/20 23 Active atorvastatin (LIPITOR) 40 mg tabletIndications: Hyperlipidemia, mixed TAKE ONE TABLET BY MOUTH EVERY NIGHT AT BEDTIME 90 tablet 1 08/02/19 24 Active pioglitazone (ACTOS) 45 mg tabletIndications: Diabetic polyneuropathy associated with type 2 diabetes mellitus (CMS/HCC) TAKE ONE(1) TABLET BY MOUTH DAILY 90 tablet 11/07/19 24 Active bictegrav-emtricit -tenofov ala (Biktarvy) 50-200-25 mg tabletIndications: HIV positive, asymptomatic (CMS/HCC) TAKE 1 (ONE) TABLET BY MOUTH 1 (ONE) TIME EACH DAY. 30 tablet 2 11/07/19 24 Active lisinopriL (PRINIVIL) 40 mg tabletIndications: Benign essential HTN TAKE 1 (ONE) TABLET BY MOUTH EVERY DAY. 90 tablet 1 01/05/20 24 Active gabapentin (NEURONTIN) 300 mg capsuleIndications :Diabetic polyneuropathy associated with type 2 diabetes mellitus (CMS/HCC) Take 1 capsule (300 mg total) by mouth 4 times a day 360 capsule 03/06/20 24 Active dulaglutide (Trulicity) 1.5 mg/0.5 mL pen injectorIndication s:Diabetic polyneuropathy associated with type 2 diabetes mellitus (CMS/HCC) Inject 1.5 mg under the skin every 7 (seven) days 6 mL 1 03/21/20 24 Active metoprolol succinate (TOPROL-XL) 25 mg 24 hr tabletIndications: Paroxysmal atrial fibrillation (CMS/HCC) Take 1 tablet (25 mg total) by mouth 1 (one) time each day 30 tablet 06/01/20 24 Active escitalopram (LEXAPRO) 10 mg tabletIndications: Moderate episode of recurrent major depressive disorder (CMS/HCC) Take 1 tablet (10 mg total) by mouth 1 (one) time each day 30 tablet 06/01/20 24 Active metFORMIN (GLUCOPHAGE) 1,000 mg tabletIndications: Diabetic polyneuropathy associated with type 2 diabetes mellitus (CMS/HCC) TAKE 1 (ONE) TABLET BY MOUTH 2 (TWO) TIMES PER DAY WITH MEALS. 60 tablet 06/01/20 24 Active insulin glargine (Lantus Solostar U-100 Insulin) 100 unit/mL (3 mL) injectionIndicatio ns:Diabetic polyneuropathy associated with type 2 diabetes mellitus (CMS/HCC) Inject 32 Units under the skin 1 (one) time each day You must establish with new PCP or be seen in this office for refills 15 mL 06/06/20 24 Active alendronate (FOSAMAX) 70 mg tabletIndications: Age-related osteoporosis without current pathological fracture Take 1 tablet (70 mg total) by mouth every 7 (seven) days Take in the morning with a full glass of water, on an empty stomach, and do not take anything else by mouth or lie down for the next 30 min. 4 tablet 06/06/20 24 Active albuterol HFA 90 mcg/actuation inhalerIndications :Chronic obstructive pulmonary disease, unspecified COPD type (CMS/HCC) INHALE 2 PUFFS EVERY FOUR HOURS NEEEDED FOR SHORTNESS OF BREATH, WHEEZING--must establish wth new PCP or be seen in this office for refills 17 g 06/06/20 24 Active Active Problems Patient Care Coordination No te Formatting of this note migh t be different from the original. 08/04/21 Submitted PA Trulicity 1.5 mg with kushal JIMENEZ When trying to resubmit this PA due to it not being released to its destination via EPA problem - Cover My Meds states PA not required for Trulicity 1.5mg. 03/30/22 SC. RN instructed pharmacy to run as verbal order to process and complete test claim for this medication. - per [facility] patient filled this medication and picked up same day with no problem on 03/30/22 [place] Received another request to submit this PA for trulicity - submitted cover my meds 06/16/22 ([place]: [id number]) - approved 06/02/22-06/16/23 Request #[id number] ar Problem Noted Date Diagnosed Date Type 2 diabetes mellitus wit h diabetic peripheral angiopathy without gangrene, with long-term current use of insulin 07/01/2023 Type 2 diabetes mellitus with other specified co mplication 07/01/2023 Overview (07/01/2023): With mixed hyperlipidemia Assessment & Plan (07/01/2023 1:51 PM [facility]): Diabetes is controlled. A1c up because he was off trulicity for a while but been back on it. Stable. Continue present management. Age-related osteoporosis wit hout current pathological fracture 07/26/2022 Overview (07/26/2022): DXA 07/01 right hip -3.6, left hip -3.5 Assessment & Plan (07/26/2022 10:48 AM [facility]): Recent pelvic fracture. Counseling about osteopenia/osteoporosis. Discussed fracture risks. Discussed fall prevention. Weight bearing exercises. Agreed to starting fosamax. Side effects reviewed and ways to prevent. Chronic pain syndrome 07/26/2022 Overview (07/26/2022): Pain generator: chronic multilevel degenerative disc disease; neuropathy Lab Results Component Value Date Opioid Agreement Form Date contract 05/19/2022 Last PDMP: 07/26/2022 10:52 AM by ROMERO LOVETT Assessment & Plan (07/26/2022 10:55 AM [facility]): Patient requested refill of his pain medication. I advised him that this will invalidate his pain contract with his pain specialist. He verbalized that he will just get his refills from me. I advised him that he will need to continue follow-up with them to facilitate the next step for his plan of care for [facility]. If he has failed interventional treatment then the next reasonable step is for him to consult with a service desk specialist or even update his spine imaging. I will defer this to his pain management team. Bilateral carpal tunnel syndrome 07/26/2022 Overview (07/26/2022): EMG/NCV 07/01 Assessment & Plan (07/26/2022 10:56 AM [facility]): I will request his records from Dr. Guerrero who completed his testing. I advised him that this is a separate issue from his spinal complaints. Hand surgery referral for further evaluation and management Vitamin D deficiency 05/20/2022 Overview (05/20/2022): 2021 Bilateral hearing loss 08/19/2021 Overview (08/19/2021): Severe, left more than right, hearing aides in the past, Cervical disc disease 04/14/2021 Overview (04/14/2021): XR 03/31: multilevel disease with evidence of spasm Assessment & Plan (04/14/2021 2:17 PM MST): I advised the patient that the straightening of the cervical spine is suggestive of muscle spasms that could contribute to his paresthesia considering that he reports that certain position seem to alleviate it. Patient agreed to do physical therapy for his neck and lower back. He will continue follow-up with his pain specialist and if no improvement then will request updated MRI. Follow-up for re-evaluation in 2 months. Paresthesia 03/11/2021 Overview (03/11/2021): Left C2-4 involvement Assessment & Plan (03/11/2021 1:36 PM MST): Cervical XR ordered. Advised that symptom management is gabapentin as well. He will restart gabapentin but with a lower dose to avoid side effects. Chronic bilateral low back pain without sciatica 10/13/2020 Assessment & Plan (03/11/2021 1:37 PM MST): Chronic. MRI was ordered but was denied by insurance. XR ordered and MRI based on findings. Assessment & Plan (10/13/2020 11:44 AM [facility]): Condition is newly identified. Detailed treatment discussed with the patient today. See orders. This problem will be reassessed by physical medicine . Recurrent major depressive disorder, in full rem ission 04/17/2020 Assessment & Plan (07/01/2023 1:51 PM MST): Overall improved especially since his pain is better now as well. Stable. Continue present management. Assessment & Plan (10/30/2020 7:57 AM MST): His depression is not controlled and continue to worsen. He feels defeated, thoughts of better off but no active suicidal tendencies. He had been referred to CPR before but was lost to follow-up. 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 Referral to psychological counseling. Psychological condition will be reassessed in 2-4 weeks. Counseling about the nature of depression/anxiety. Due to severity, I advised to try antidepressant. Start escitalopram and will do a nurse follow-up call in 2 weeks. 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 Schedule dilated exam in 1 year. Assessment & Plan (03/11/2021 1:37 PM MST): Follow-up with his javascript engineer. Abdominal aortic atherosclerosis 06/29/2019 Overview (06/29/2019): CT Sep 2017; Assessment & Plan (10/01/2019 1:34 PM MST): Condition is stable, based on history, physical exam and review of pertinent labs, studies and medications: continue current treatment plan This problem will be reassessed in 3 months. Arteriosclerotic coronary artery disease 019 Overview (02/29/2020): S/p PCI to LAD and RCA 2015 Assessment & Plan (02/29/2020 3:19 PM MST): He reports being fatigued all the time that's comparable to his symptoms prior to stent. Advised to follow-up with his administrative and program specialist. Benign essential HTN 06/29/2019 Assessment & Plan (04/21/2022 7:30 AM MST): Stable. Continue present management. Assessment & Plan (04/14/2021 11:15 AM MST): Stable. Continue present management. Assessment & Plan (11/06/2020 4:06 PM MST): Stable. Continue present management. Assessment & Plan (04/17/2020 1:37 PM MST): Stable. Continue present management. Assessment & Plan (02/29/2020 3:19 PM MST): Stable. Continue present management. On lisinopril and metoprolol Assessment & Plan (07/02/2019 6:00 PM MST): Stable. Continue present management. Diabetic neuropathy associat ed with type 2 diabetes mellitus 06/29/2019 Overview (07/02/2019): With painful peripheral neuropathy Assessment & Plan (07/26/2022 11:00 AM MST): Stable. Continue present management. Assessment & Plan (04/21/2022 7:30 AM MST): Diabetes controlled with current regimen and work with clinical pharmacist. Stable. Continue present management. Neuropathy symptoms stable. Assessment & Plan (04/14/2021 2:18 PM MST): A1c is still high but improved with closer management and adherence. Continue follow-up with clinical pharmacist. Hypoglycemic precaution. Assessment & Plan (03/11/2021 1:35 PM MST): He is working with the clinical pharmacist for his insulin titration. Update labs today. Assessment & Plan (11/06/2020 4:08 PM MST): Uncontrolled because he's not taking his medications. Advised to get back on his medications for now while he gets connected with behavioral health. His diabetes was in better control as long as he's on his medications. On gabapentin for neuropathy, stable. Assessment & Plan (04/17/2020 1:27 PM MST): Diabetes is uncontrolled mostly related to medication adherence. Neuropathy symptoms controlled. Counseling about risk of diabetes progression. Discussed low glycemic index diet. Recommended low carbohydrate, low animal fat. Encouraged exercise. Assessment & Plan (02/29/2020 3:18 PM MST): Update labs. Possible gaps in prescription refill. Continue current regimen for now. He takes gabapentin for neuropathy Assessment & Plan (10/01/2019 1:33 PM MST): Condition is stable, based on history, physical exam and review of pertinent labs, studies and medications: continue current treatment plan This problem will be reassessed in 3 months. Assessment & Plan (07/02/2019 5:59 PM MST): DM uncontrolled because he has been off his other meds. Restart and repeat labs in 3 months. Focus on lifestyle changes HIV positive, asymptomatic 06/29/2019 Overview (07/02/2019): Diagnosed: 2006. CD4 carly 200s. GT 01/23 M184V, K103N - resistant to 3TC, FTC, NVP, EFV ART 2005-: EFV/TDF/FTC. 2015-: TDF+DTG+RPV(RPV stopped while on PPI). 2018: TDF+DTG. : DTG/RPV. 2018-present:BIC/TAF/FTC Assessment & Plan (07/01/2023 1:51 PM MST): Chronic viral suppression. Stable CD4 count. Good compliance to treatment. Continue current regimen. Assessment & Plan (07/26/2022 10:56 AM MST): Chronic viral suppression. Stable CD4 count. Good compliance to treatment. Continue current regimen. Assessment & Plan (04/21/2022 7:29 AM MST): Chronic viral suppression. Stable CD4 count. Good compliance to treatment. Continue current regimen. Assessment & Plan (04/14/2021 11:15 AM MST): Stable. Continue present management. Assessment & Plan (10/30/2020 8:00 AM MST): Virologic relapse due to inconsistency in taking his ART. Discussed risk of resistance. He is interested and a good candidate for LA injectable but I advised him that he needs to be virally suppressed first. Repeat labs in 1 month for close monitoring. Assessment & Plan (04/17/2020 1:26 PM MST): Small blip with stable CD4. Patient has not been taking his Biktarvy. Discussed importance of adherence and risk of resistance. Recheck labs In 3 months Assessment & Plan (02/29/2020 3:17 PM MST): Chronic viral suppression. Stable CD4 count. Continue current regimen. Assessment & Plan (10/01/2019 1:33 PM MST): Condition is stable, based on history, physical exam and review of pertinent labs, studies and medications: continue current treatment plan This problem will be reassessed in 3 months. Assessment & Plan (07/02/2019 5:58 PM MST): Chronic viral suppression. Stable CD4 count. Good compliance to treatment. Continue current regimen. Hyperlipidemia, mixed 06/29/2019 Overview (04/17/2020): With ASCVD. Stable on statin. Continue management of comorbidities. Assessment & Plan (07/26/2022 10:44 AM MST): Low adherence report. Refilled medications today. Assessment & Plan (04/21/2022 7:29 AM MST): Patient's lipid panel went up because of inconsistent intake of his statin. Patient will resume. Counseling about the hyperlipidemia and ASCVD. Discussed importance of lifestyle changes Assessment & Plan (11/06/2020 4:05 PM MST): HyperTG related to his uncontrolled diabetes. Should improve with glycemic control Assessment & Plan (07/02/2019 5:56 PM MST): Uncontrolled due to noncompliance. Restart statin. PAD (peripheral artery disease) 06/29/2019 Overview (07/02/2019): Sep 2018 bilateral disease but with severe stenosis on right Assessment & Plan (07/01/2023 1:48 PM MST): He denies any claudication. He has been exercising more as well. Stable. Continue monitoring. Assessment & Plan (10/01/2019 1:34 PM MST): Condition is stable, based on history, physical exam and review of pertinent labs, studies and medications: continue current treatment plan This problem will be reassessed in 3 months. Assessment & Plan (07/02/2019 5:55 PM MST): Denies claudication. Continue management of comorbidities Paroxysmal atrial fibrillation 06/29/2019 Overview (07/01/2023): [id number] Score 3 Assessment & Plan (07/01/2023 1:50 PM MST): Currently in SR. Rate controlled. Not on anticoagulation but he takes ASA. Assessment & Plan (10/01/2019 1:35 PM MST): Condition is stable, based on history, physical exam and review of pertinent labs, studies and medications: continue current treatment plan This problem will be reassessed in 3 months. Peyronie's disease 06/29/2019 Overview (06/29/2019): Scarring from past ED medication injections. Further injections not recommended.; Pulmonary nodule seen on imaging study 9 Asthma 09/21/2017 COPD (chronic obstructive pulmonary disease) Overview (06/29/2019): Previous diagnosis; Assessment & Plan (07/01/2023 1:48 PM MST): Recent flu like illness with exacerbation but already getting better. I advised the patient to make sure that he uses his spiriva regularly. Call If symptoms worsen and we can put him on stress dose prednisone but could raise his blood sugar. Assessment & Plan (04/17/2020 1:28 PM MST): Uncontrolled, not in exacerbation, due to being off medications. Assessment & Plan (10/01/2019 1:33 PM MST): COPD is improving with treatment. Continue current medications. Assessment & Plan (07/02/2019 5:59 PM MST): Uncontrolled. Advised cessation of smoking marijuana. Switch to Trelegy. Consider PFT on follow-up Abnormal CT scan, stomach 09/20/2017 Overview (10/13/2020): Added automatically from request for surgery [id number] Resolved Problems Problem Noted Date Diagnosed Date Resolved Date Unstable gait 05/19/2022 07/26/2022 History of falling 05/19/2022 Malignant neoplasm of thyroid gland 08/19/2021 04/19/2022 Skin lesions 10/01/2019 04/19/2022 Injury of tendon of biceps 10/01/2019 0 07/26/2022 Assessment & Plan (10/01/2019 1:57 PM MST): Condition is newly identified. Detailed treatment discussed with the patient today. See orders. This problem will be reassessed by orthopedic - differential includes biceps injury that may require surgical repair. . Microalbuminuria 07/02/2019 07/26/2022 Assessment & Plan (07/02/2019 6:06 PM MST): 1st episode probably related to hyperglycemia. Repeat in 3 months Abnormal TSH 07/02/2019 04/19/2022 Late latent syphilis 06/29/2019 020 Overview (06/29/2019): Last treated 2009.; Obesity 06/29/2019 07/26/2022 Polycythemia 09/21/2017 07/26/2022 Status post three vessel cor onary artery bypass 03/11/2016 07/26/2022 Encounters Date Type Department Care Team Description 09/05/[address] [place] [address] Renee Mora, Diabetic polyneuropathy associated with type 2 diabetes mellitus (CMS/HCC) 07/29/[address] [place] [address] Gay Rosario MD Chronic obstructive pulmonary disease, unspecified COPD type (CMS/HCC) from Last 3 Months Immunizations Name Administration Dates Next Due COVID Moderna SARS-CoV-2 mRNA LNP, PF Vaccine (R ed) 11/10/2020,10/13/2020 Influenza Quad Multi-dose Vial 0.5mL 6+mo 2020 Influenza, Quad, intranasal 04/28/2016 Influenza, trivalent (IIV3), split virus (single-dose) PF 04/28/2016 Pneumococcal Conjugate 13-Valent 07/26/2018 Pneumococcal Conjugate 20-Valent 07/21/2022 Pneumococcal Polysaccharide 23-Valent 03/31/2016 Tdap 06/30/2018,03/31/2016 Family History Medical History Relation Comments Liver disease Brother Ulcerative colitis Daughter 2 Heart block Father Hypertension Father Lung cancer Father Osteoporosis Mother Relation Status Comments Brother Alive Daughter 1 Alive Daughter 2 Alive Father Mother Alive Sister Alive Social History Tobacco Use Types Packs/Day Years [...] often do you attend chur ch or rastafari services? Patient declined 07/21/2022 Do you belong to any clubs o r organizations such as spiritism groups, unions, fraternal or athletic groups, or [...] Date Recorded Depression Risk (PHQ2) Score 0 [facility] - Occupational Stress Questionnaire Answer Date Recorded [...] place to sleep or slept in a mcc (including now)? No 07/21/2022 Sex and Gender Information Value Date Recorded Sex Assigned at Not on file Legal Sex Male 1:57 AM [facility] Gender Identity Not on file Sexual Orientation Not on file Last Filed Vital Signs Vital Sign Reading Time Taken Comments Blood Pressure 122/75 07/01/2023 1:25 PM MST Pulse 74 07/01/2023 1:21 PM [facility] Temperature 36.1 ??C (96.9 ??F) 07/01/2023 1:21 PM MS T Respiratory Rate 16 07/21/2022 1:37 PM [facility] Oxygen Saturation 98% 07/01/2023 1:21 PM MST Inhaled Oxygen Concentration - - Weight 92.5 kg (204 lb) 07/01/2023 1:21 PM MST Height 182.9 cm (6') 07/21/2022 1:37 PM MST Body Mass Index 27.67 07/21/2022 1:37 PM MST Plan of Treatment Health Maintenance Due Date Last Done Comments CT Colonography 1957 Cologuard 1957 Sigmoidoscopy 1957 PHQ-9 Depression Screen 1969 EDIS-7 Anxiety Screen 1975 Zoster Vaccines (1 of 2) 1976 RSV Vaccine (SCDM) (1 - Risk 60-74 years 1-dose series) 2017 COVID-19 Vaccine (3 - Modern a risk series) 12/08/2020 11/10/2020, 10/13/2020 FOBT/FIT 10/15/2021 10/15/2020 Annual Preventive Exam 07/21/2023 07/21/2022 Complete Annual HRA 07/21/2023 07/21/2022, 0 Influenza Vaccine (Season Ended) 2025 04/14/2021, 04/28/2016, 04/28/2016 DTaP,Tdap,and Td Vaccines (3 - Td or Tdap) 06/30/2028 06/30/2018, 03/31/2016 Colonoscopy 08/03/2031 08/03/2021 Colorectal Cancer Screening 08/03/2031 Hepatitis C Screening Completed 07/26/2018 Pneumococcal Vaccine: 50+ Years Completed 07/21/2022, 07/26/2018, 03/31/2016 Procedures Procedure Name Priority Date/Time Associated Diagnosis Comments COLONOSCOPY Routine 08/03/2021 OCCULT BLOOD X 1, STOOL Routine 10/15/2020 12:00 AM [facility] Screening for colorectal cancer HEPATITIS C VIRUS (HCV) ANTIBODY WITH REFLEX TO QUALITATIVE ISABEL Routine 07/26/2018 from Last 3 Months or Most Recently Relevant to Health Maintenance Results * Colonoscopy (08/03/2021) Pathologist [facility] Colonoscopy colon polyps Historical Provider MD HEALTH MAINTENANCE Final Result * Occult blood x 1, stool (10/15/2020 12:00 AM [facility]) [facility] Occult Bld Immunochem Negative Negative [employer] Comment: Assay sensitivity is >95% when 50 ug Hb/g of stool is present. ?? Clinical sensitivity for colorectal cancer is 87%, ??and for large adenomas is 47%, based on an evaluation of 240 individuals in a premarket commercial data set used for FDA approval. Overall, clinical specificity is 97.7%. Stool (Per Rectum) 10/15/2020 10/22/2020 7:18 PM [facility] Narrative [facility] - 10/15/2020 12:00 AM [facility] Time/Date of collection taken from specimen. Copy being sent to: Results Only Account [employer] Romero Lovett MD LAB BODY FLUIDS AND STOOLS OR DERABLES Edited Result - Final Performing Organization Address City/[facility]/ZIP Co de Phone Number Medical Envelope [facility] [address] [place] [address] * Hepatitis C Virus (HCV) Antibody With Reflex to Qualitative ISABEL (07/26/2018) HCV Ab 0.08 <=0.79 Index [facility] Hepatitis C Ab Nonreactive Nonreactive [facility] Comment: Performance characteristics of this assay have not been established for children under 18 months of age. In cases where HCV is highly suspected and serologies are negative, Hepatitis C PCR may be useful to ascertain status. Hepatitis C Antibody Reference Range: <=0.79 ? Nonreactive 0.80-0.99 ?Equivocal >=1.00 ? Reactive The magnitude of the numerical result of the HCV assay result does not correlate to the actual quantitative amount of HCV antibody present in the sample. 07/26/2018 Romero Lovett MD LAB BLOOD ORDERABLES Final Re sult Performing Organization Address City/[facility]/ZIP Co de Phone Number [facility] [address] from Last 3 Months or Most Recently Relevant to Health Maintenance Care Teams Field Supervisor Relationship Specialty Start Date End Date Renee Mora DO [address] [place] [address] PCP - General Family Medicine 06/04/24 Shanae Zarate MD [address] [place] [address] Consulting Physician Cardiology 10/13/20
--- OUTSIDE RECORDS SUMMARY | 2024-10-17 13:07 | XMS_ITS | Encounter Summary ---
Author Organization [employer] Address [address] [place] [address] Care Team Providers Care Retail Loss Prevention Investigator Name Role Phone Shanae Zarate MD Unavailable Renee Mora DO Primary Care Provider Reason for Visit * Reason Comments Med Refill Encounter Details Date Type Department Care Team (Late st Contact Info) Description 07/15/2024 Refill [facility] [address] [facility] [address] [place] [address] Gay Rosario MD [address] [facility] [address] [place], [place] [id number] Diabetic polyneuropathy associated with type 2 diabetes mellitus ([facility]/HCC) Social History Tobacco Use Types Packs/Day Years [...] often do you attend chur ch or evangelical services? Patient declined 07/21/2022 Do you belong to any clubs o r organizations such as jainism groups, unions, fraternal or athletic groups, or [...] Date Recorded Depression Risk (PHQ2) Score 0 [facility] - Occupational Stress Questionnaire Answer Date Recorded [...] place to sleep or slept in a correction (including now)? No 07/21/2022 Sex and Gender Information Value Date Recorded Sex Assigned at Not on file Legal Sex Male 1:57 AM MST Gender Identity Not on file Sexual Orientation Not on file documented as of this encounter Miscellaneous Notes * Telephone Encounter - Tana Ndiaye CPHT - 07/18/2024 5:56 AM MST RFA TEAM No staff refills--now living in [place]--see Metformin request--see Apr 2024 refill request documented in this encounter Plan of Treatment Not on file documented as of this encounter Visit Diagnoses Diagnosis Diabetic polyneuropathy associated with type 2 diabetes mellitus (CMS/HCC) documented in this encounter Care Teams Retail Loss Prevention Investigator Relationship Specialty Start Date End Date Renee Mora DO [address] [place] [address] PCP - General Family Medicine 06/04/24 Shanae Zarate MD [address] [place] [address] Consulting Physician Cardiology 10/13/20 documented as of this encounter
--- OUTSIDE RECORDS SUMMARY | 2024-10-17 13:07 | XMS_ITS | Encounter Summary ---
Author Organization [facility] Address [address] [place] [address] Care Team Providers Care Dough Raiser Name Role Phone Romero Licea MD Primary Care Provi clifton Shana Mike NP Unavailable [phone] Julius Canseco MD Unavailable [phone] Encounter Details Date Type Department Care Team (Late st Contact Info) Description 02/04/2022 Procedure Pass [facility] [address] [place] [address] Social History Tobacco Use Types [...] suspected to have Coronavirus/COVID-19? No / Unsure 02/04/2022 3:19 PM MST documented as of this encounter Plan of Treatment Not on file documented as of this encounter Visit Diagnoses Not on filedocumented in this encounter Care Teams Dough Raiser Relationship Specialty Start Date End Date Romero Licea MD [address] [place], [place] [phone] PCP - General Family Medicine 08/03/21 Shana Mike, ENTERPRISE SECURITY ARCHITECT [address] [place] [address] Nurse Practitioner Physical Medicine and Rehabilitation 11/15/22 Julius Canseco MD [address] [place] [address] Consulting Physician Physical Medicine and Rehabilitation 04/11/23 documented as of this encounter
--- OUTSIDE RECORDS SUMMARY | 2024-10-17 13:08 | XMS_ITS | Clinical Summary ---
Author Organization [facility] Address [address] [place] [address] Care Team Providers Care Physiological Chemist Name Role Phone Romero Licea MD Primary Care Provi clifton Shana Mike NP Unavailable [phone] Julius Canseco MD Unavailable Allergies No known active allergies Medications Medication Sig Dispensed Refills Start Date End Date Status metFORMIN (GLUCOPHAGE) 1000 mg tablet Take 1,000 mg by mouth 2 (two) times daily with breakfast and dinner. Active pioglitazone (ACTOS) 15 mg tablet Take 15 mg by mouth daily. Active lisinopril (PRINIVIL,ZESTRIL) 20 mg tablet Take 20 mg by mouth daily. Active aspirin 81 MG tablet Take 81 mg by mouth daily. Active Medical MarijuanaIndications: edibles Inhale into the lungs as needed for Other. Active albuterol (VENTOLIN) 108 (90 Base) MCG/ACT inhaler INHALE 2 PUFFS EVERY FOUR HOURS NEEEDED FOR SHORTNESS OF BREATH, WHEEZING, COUGH 09/11/2020 Active atorvastatin (LIPITOR) 40 mg tablet Take 40 mg by mouth daily. 10/27/2020 Active bictegravir-emtricita bine-tenofovir (BIKTARVY) 50-200-25 mg per tablet Take 1 tablet by mouth Daily. 04/17/2020 Active escitalopram (LEXAPRO) 10 mg tablet Take 10 mg by mouth daily. 10/08/2020 Active metoprolol tartrate (LOPRESSOR) 25 mg tablet Take 50 mg by mouth 2 (two) times daily. 10/20/2020 Active SPIRIVA HANDIHALER [address] 1 capsule into inhaler and inhale daily. 10/11/2020 Active Dulaglutide (TRULICITY) 0.75 MG/0.5ML SOPN Inject 0.75 mg into the skin once a week. Active Active Problems Problem Noted Date Diagnosed Date Degenerative disc disease, cervical 11/25/2021 Degenerative disc disease, lumbar 11/25/2021 Spinal stenosis of lumbar re gion with neurogenic claudication 11/25/2021 Isthmic spondylolisthesis 11/25/2021 Cervical radiculopathy 10/06/2021 Overview (10/06/2021): Added automatically from request for surgery [id number] Lumbar radiculopathy 10/05/2021 Overview (10/05/2021): Added automatically from request for surgery [id number] Fever 09/23/2017 Asthma 09/21/2017 HIV (human immunodeficiency virus infection) COPD (chronic obstructive pulmonary disease) Hypertension 09/21/2017 Polycythemia 09/21/2017 Hyponatremia 09/21/2017 Dehydration 09/20/[address] scan, stomach 09/20/2017 Overview (09/23/2017): Added automatically from request for surgery [id number] Social History Tobacco Use Types Packs/Day Years Used Date Smoking Tobacco: Former Cigarettes 2 10 Smokeless Tobacco: Never Tobacco Cessation:Counseling Given: Not Answered Alcohol Use Standard Drinks/Week Comments No 0 (1 standard drink = 0.6 oz pur e alcohol) Sex and Gender Information Value Date Recorded Sex Assigned at Not on file Gender Identity Not on file Sexual Orientation Not on file Last Filed Vital Signs Vital Sign Reading Time Taken Comments Blood Pressure 128/72 04/11/2023 5:00 PM MST Pulse 66 04/11/2023 5:00 PM MST Temperature 36.6 ??C (97.8 ??F) 04/11/2023 2:43 PM MS T Respiratory Rate 16 04/11/2023 5:00 PM [facility] Oxygen Saturation 99% 04/11/2023 5:00 PM MST Inhaled Oxygen Concentration - - Weight 90.7 kg (200 lb) 04/11/2023 2:43 PM MST Height 177.8 cm (5' 10 ) 04/11/2023 2:43 PM MST Body Mass Index 28.7 04/11/2023 2:43 PM MST Plan of Treatment Health Maintenance Due Date Last Done Comments Cologuard 1957 Fecal Immunohistochemical Test 1957 Sigmoidoscopy 1957 Hepatitis C Screen 1975 Hepatitis A Vaccine (1 of 2 - Risk 2-dose series) 1976 Zoster (Shingles) Vaccine (1 of 2) 1976 RSV Vaccine (1 - Risk 60-74 years 1-dose series) 2017 COVID-19 Vaccine (#1) 11/10/2020 11/10/2020 , 10/13/2020 Abdominal Aortic Aneurysm (A AA) Screening 2022 09/21/2017, 09/20/2017 Influenza Vaccine (#1) 2024 , 04/28/2016 DTaP,Tdap,or Td Vaccines (3 - Td or Tdap) 06/30/2028 06/30/2018, 03/31/2016 Colonoscopy 08/03/2031 08/03/2021, 08/03/2021 Colorectal Cancer Screening 08/03/2031 Hemoglobin A1C Discontinued 09/21/2017 Pneumococcal Vaccine: 50+ Years Completed 07/21/2022, 07/26/2018, 03/31/2016 HPV VACCINES Aged Out No longer eligi ble based on patient's age to complete this topic Procedures Procedure Name Priority Date/Time Associated Diagnosis Comments COLONOSCOPY 08/03/2021 1:[address] CHEST ABDOMEN PELVIS W CONTRAST Routine 09/21/2017 8:44 PM MST HEMOGLOBIN A1C Routine 09/21/2017 4:47 AM MST from Last 3 Months or Most Recently Relevant to Health Maintenance Results * COLONOSCOPY (08/03/2021 1:34 PM MST) Franky Gill MD GI PROCEDURE ORDERA BLES * CT chest abdomen pelvis with contrast (09/21/2017 8:44 PM [facility]) Anatomical Region Laterality Modality Abdomen, Chest, Pelvis, Hip Comp uted Tomography 09/21/2017 8:42 PM [facility] Narrative 09/21/2017 8:[address] [facility] [address] THORAX, ABDOMEN AND PELVIS WITH CONTRAST HISTORY: ??Immunocompromised. ??Fever of unknown origin COMPARISON: ??May 2005 TECHNIQUE: ??Intravenous low osmolar contrast. Coronal and sagittal reformations. FINDINGS: ?? CHEST: CARDIAC: Heart size not enlarged. ??Coronary calcifications present. AORTA/MEDIASTINUM: Mild mediastinal adenopathy with nodes individually no larger than 5 x 11 mm, involving superior mediastinum, paratracheal, subcarinal, and hilar regions, but prominent in number. ??These are increased as compared to 2004 CT study. ??No aneurysm or dissection of the aorta. LUNGS: There is a spiculated area in the left upper lobe measuring approximately 12 mm in size, which was present May 2005, and therefore is more likely scarring than neoplasm given relative stability over greater than 10 years. There are at least 4 areas of airspace disease not seen previously which are worrisome for atypical infection. ??They appear as cluster of nodules with surrounding groundglass opacity. ??Largest is in the right middle lobe on axial image 70 measuring approximately 15 mm. ??Smaller cluster in the left lower lobe on axial image 70- 74 and left upper lobe on image 62 as well as right upper lobe on image 32, respectively. ??Fungal or other opportunistic infection should be considered given atypical morphology and immunocompromised patient. PLEURA: No pleural effusion. ?? SKELETAL/OTHER: No other acute changes/findings otherwise. ABDOMEN AND PELVIS: LIVER/BILIARY/PANCREAS: Status post cholecystectomy. ??No biliary dilatation. ??No pancreatic enlargement or pancreatic duct dilatation. SPLEEN/ADRENALS: Spleen top normal size. ??No focal lesion seen within. URINARY TRACT: Simple 3 cm and smaller cysts scattered through the kidneys bilaterally. ??No hydronephrosis or nephrogram asymmetry. AORTA/ RETROPERITONEUM: Scattered shotty sub-5 mm nodes but no bulky adenopathy in the abdomen. ??Calcified aorta. ??No aneurysm. BOWEL: No convincing obstruction or definite focal inflammatory changes. ?? SKELETALOTHER: Chronic sclerosis at L3-4 and appearance most suggestive of advanced chronic degenerative spondylosis, rather than chronic discitis, although chronic smoldering discitis at this level not excluded entirely and a immunocompromised patient. No surrounding soft tissue thickening/inflammation definitely seen however. There is eccentric soft tissue thickening in the mid to distal stomach, best seen on axial images 73-75, suspicious for either a gastric mass or gastric ulcer. ??This would be better confirmed or excluded by endoscopy as the stomach is not well distended/evaluated by routine CT. ??No free air. ??No free ascites. Moderate to severe diverticular change in the colon chronically particularly in the descending and sigmoid colon. ??No definite diverticulitis. ??There is mild thickening of the rectum which could reflect proctitis but would be better evaluated by proctoscopy and CT. No convincing intra-abdominal abscess seen. IMPRESSION: New areas of nodular airspace disease with surrounding ground glass scattered throughout both lungs worrisome for atypical, possibly opportunistic, infection. ??Clinically correlate and follow-up to resolution. Other findings in the chest abdomen and pelvis as detailed above. ??See comment. Procedure Note Kirk Leon MD - 09/21/2017 CT THORAX, ABDOMEN AND PELVIS WITH CONTRAST HISTORY: Immunocompromised. Fever of unknown origin COMPARISON: May 2005 TECHNIQUE: Intravenous low osmolar contrast. Coronal and sagittalreformations. FINDINGS: CHEST: CARDIAC: Heart size not enlarged. Coronary calcifications present. AORTA/MEDIASTINUM: Mild mediastinal adenopathy with nodes individually nolarger than 5 x 11 mm, involving superior mediastinum, paratracheal,subcarinal, and hilar regions, but prominent in number. These areincreased as compared to 2005 CT study. No aneurysm or dissection of the aorta. LUNGS: There is a spiculated area in the left upper lobe measuringapproximately 12 mm in size, which was present May 2005, andtherefore is more likely scarring than neoplasm given relative stabilityover greater than 10 years. There are at least 4 areas of airspace disease not seen previously whichare worrisome for atypical infection. They appear as cluster of noduleswith surrounding groundglass opacity. Largest is in the right middle lobeon axial image 70 measuring approximately 15 mm. Smaller cluster in the left lower lobe on axialimage 70-74 and left upper lobe on image 62 as well as right upper lobe onimage 32, respectively. Fungal or other opportunistic infection should beconsidered given atypical morphology and immunocompromised patient. PLEURA: No pleural effusion. SKELETAL/OTHER: No other acute changes/findings otherwise. ABDOMEN AND PELVIS: LIVER/BILIARY/PANCREAS: Status post cholecystectomy. No biliarydilatation. No pancreatic enlargement or pancreatic duct dilatation. SPLEEN/ADRENALS: Spleen top normal size. No focal lesion seen within. URINARY TRACT: Simple 3 cm and smaller cysts scattered through the kidneysbilaterally. No hydronephrosis or nephrogram asymmetry. AORTA/ RETROPERITONEUM: Scattered shotty sub-5 mm nodes but no bulkyadenopathy in the abdomen. Calcified aorta. No aneurysm. BOWEL: No convincing obstruction or definite focal inflammatory changes. SKELETALOTHER: Chronic sclerosis at L3-4 and appearance most suggestive ofadvanced chronic degenerative spondylosis, rather than chronic discitis,although chronic smoldering discitis at this level not excluded entirelyand a immunocompromised patient. No surrounding soft tissue thickening/inflammation definitely seenhowever. There is eccentric soft tissue thickening in the mid to distal stomach,best seen on axial images 73-75, suspicious for either a gastric mass orgastric ulcer. This would be better confirmed or excluded by endoscopy asthe stomach is not well distended/evaluated by routine CT. No free air. No free ascites. Moderate to severe diverticular change in the colon chronicallyparticularly in the descending and sigmoid colon. No definitediverticulitis. There is mild thickening of the rectum which couldreflect proctitis but would be better evaluated by proctoscopy and CT. No convincing intra-abdominal abscess seen. IMPRESSION: New areas of nodular airspace disease with surrounding ground glassscattered throughout both lungs worrisome for atypical, possiblyopportunistic, infection. Clinically correlate and follow-up toresolution. Other findings in the chest abdomen and pelvis as detailed above. Seecomment. Bright Sanchez MD IMG CT ORDERABLES * (ABNORMAL) Hemoglobin A1c (09/21/2017 4:47 AM [facility]) Hemoglobin A1C 8.5(H) <=5.7 % 09/21/2017 9:55 AM [facility] EAG 197.3 mg/dL 09/21/2017 9:55 AM [facility] Blood BLOOD SPECIMEN / Unknown Venipuncture / Unknown 09/21/2017 4:47 AM MST 09/21/2017 4:57 AM MST Narrative [facility] - 09/21/2017 9:55 AM [facility] The [place] Diabetes [employer] (ADA) guidelines for interpreting Hemoglobin A1C are as follows: Non-Diabetic patient: <5.7% Increased risk for future Diabetes: 5.7-6.4% ADA diagnostic criteria for Diabetes: >6.4% Values for patients with Diabetes: Result <7.0%: ??Meets ADA's recommendation goal for therapy. Result 7.0-8.0%: Exceeds ADA's recommended goal. Result >8.0%: ADA recommends reevaluation of therapy. Dre Perez MD LAB BLOOD ORDERAB LES [place] [id number], [facility] [phone] from Last 3 Months or Most Recently Relevant to Health Maintenance Advance Directives For more information, please contact: [phone] * Full Code (Latest Code Status on File) Date Activated Date Inactivated Comments 09/20/2017 8:25 PM 09/26/2017 4:14 PM Care Teams Physiological Chemist Relationship Specialty Start Date End Date Romero Licea MD [address] [place] [address] PCP - General Family Medicine 08/03/21 Shana Mike NP [address] [place], [place] [id number] Nurse Practitioner Physical Medicine and Rehabilitation 11/15/22 Julius Canseco MD [address] [place], [place] [id number] Consulting Physician Physical Medicine and Rehabilitation 04/11/23
--- OUTSIDE RECORDS SUMMARY | 2024-10-17 13:08 | XMS_ITS | Continuity of Care Document ---
Author Organization [facility] ter Address [address] [place] [address] Phone Care Team Providers Care Business Writer Name Role Phone Unavailable Unavailable Unavailable Medications [...] Location Reason(s) For Visit Diagnoses Date Provider Providers Copied on Encounter [facility], [facility] [place], [id number], tel:[phone] Conversion Location [facility] No Information No Information [facility], [facility] [place], [id number], tel:[phone] Conversion Location [facility] 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 [address] , [facility] [address], [place], [place], [id number], . tel:[phone] Family History Family Member Type Diagnosis Age At Onset No Information Payers Payer name Insurance type Covered democrat ID Authoriza tion(s) No Information Social History Type Description Quantity Date Captured Comments Sex Male Smoking Status No Information Chief Complaint And Reason For Visit No Information Reason For Referral Reason For Referral No Information History Of Present Illness Encounter Date Complaint History Of Prese nt Illness No Information Functional Status Date Functional Assessmen t No Information Instructions Date Instruction Additional Infor mation No Information Assessments Type Assessment Date No Information Patient Care Teams Name Effective Dates (start - stop) Status Members No Information
== END 2024-10-17 12:01 | disposition home or self-care (01) ==
LOC: HO.HMCFM 11:07
PROVIDERS: PCP Physician Assistant; Visit Provider Physician Assistant
DX: E11.9 Type 2 diabetes mellitus without complications (principal); Z79.4 Long term (current) use of insulin; Z21 Asymptomatic human immunodeficiency virus [HIV] infection status; J44.9 Chronic obstructive pulmonary disease, unspecified; I10 Essential (primary) hypertension; I25.10 Atherosclerotic heart disease of native coronary artery without angina pectoris; F41.8 Other specified anxiety disorders; K63.5 Polyp of colon; Z85.828 Personal history of other malignant neoplasm of skin

== ENCOUNTER → 2024-10-17 11:06 | Outpatient (BNVA) | payer MEDICARE, SELFPAY | PROVIDERS: Visit Provider Physician Assistant | DX: Z13.89 Encounter for screening for other disorder (principal) | CPT/HCPCS: 96127; 99202 ==

== ENCOUNTER 2024-10-17 12:41 | Outpatient (REF) | payer MEDICARE, SELFPAY ==
--- OUTSIDE RECORDS SUMMARY | 2024-10-17 14:40 | XMS_ITS | Encounter Summary ---
Author Organization [facility] Address [address] [place] [address] Care Team Providers Care Stator Plate Washer Name Role Phone Romero Licea MD Primary Care Provi clifton Shana Mike NP Unavailable [phone] Julius Canseco MD Unavailable Encounter Details Date Type Department Care Team (Late st Contact Info) Description 08/03/2021 Procedure Pass [facility] [address] [place] [address] Social History Tobacco Use Types [...] on filedocumented in this encounter Care Teams Stator Plate Washer Relationship Specialty Start Date End Date Romero Licea MD [address] [place], [place] [phone] PCP - General Family Medicine 08/03/21 Shana Mike, STAFFING CONSULTANT [address] [place], [place] [id number] Nurse Practitioner Physical Medicine and Rehabilitation 11/15/22 Julius Canseco MD [address] [place], [place] [phone] Consulting Physician Physical Medicine and Rehabilitation 04/11/23 documented as of this encounter
--- OUTSIDE RECORDS SUMMARY | 2024-10-17 14:40 | XMS_ITS | Encounter Summary ---
Author Organization [facility] Address [address] [place] [address] Care Team Providers Care Care Analyst Name Role Phone Ubaldo Spring MD Primary Care Provider [phone] Romero Licea MD Primary Care Provi clifton Shana Mike NP Unavailable [phone] Julius Canseco MD Unavailable Encounter Details Date Type Department Care Team (Late st Contact Info) Description 09/23/2017 Procedure Pass [facility] Endoscopy [address] [place] [address] Social History Tobacco Use Types [...] on filedocumented in this encounter Care Teams Care Analyst Relationship Specialty Start Date End Date Ubaldo Spring MD PCP - General Family Medicine 09/20/17 08/02/21 Romero Licea MD [address] [place] [address] PCP - General Family Medicine 08/03/21 Shana Mike NP [address] [place] [address] Nurse Practitioner Physical Medicine and Rehabilitation 11/15/22 Julius Canseco MD [address] [place] [address] Consulting Physician Physical Medicine and Rehabilitation 04/11/23 documented as of this encounter
--- OUTSIDE RECORDS SUMMARY | 2024-10-17 14:40 | XMS_ITS | Encounter Summary ---
Author Organization [facility] Address [address] [place] [address] Care Team Providers Care Expediter Clerk Name Role Phone Romero Licea MD Primary Care Provi clifton Shana Mike NP Unavailable [phone] Julius Canseco MD Unavailable [phone] Encounter Details Date Type Department Care Team (Late st Contact Info) Description 10/08/2021 Procedure Pass [facility] Surgery [address] [place] [address] Social History Tobacco Use Types [...] on filedocumented in this encounter Care Teams Expediter Clerk Relationship Specialty Start Date End Date Romero Licea MD [address] [place], [place] [phone] PCP - General Family Medicine 08/03/21 Shana Mike, JAYNA [address] [place] [address] Nurse Practitioner Physical Medicine and Rehabilitation 11/15/22 Julius Canseco MD [address] [place] [address] Consulting Physician Physical Medicine and Rehabilitation 04/11/23 documented as of this encounter
--- OUTSIDE RECORDS SUMMARY | 2024-10-17 14:40 | XMS_ITS | Encounter Summary ---
Author Organization [employer] Address [address] [place] [address] Care Team Providers Care Professional Services Consultant Name Role Phone Shanae Zarate MD Unavailable Renee Mora DO Primary Care Provider [phone] Reason for Visit * Reason Comments Med Refill Encounter Details Date Type Department Care Team (Late st Contact Info) Description 06/23/2024 Refill [facility] [address] [place] [address] [place] [address] [place] [address] [address] [place], [place] [id number] Diabetic polyneuropathy associated with type 2 diabetes mellitus ([facility]/HCC) Social History Tobacco Use Types Packs/Day Years [...] often do you attend chur ch or mandaen services? Patient declined 07/21/2022 Do you belong to any clubs o r organizations such as orthodox groups, unions, fraternal or athletic groups, or [...] Date Recorded Depression Risk (PHQ2) Score 0 [facility] - Occupational Stress Questionnaire Answer Date [...] place to sleep or slept in a longterm (including now)? No 07/21/2022 Sex and Gender [...] (CMS/HCC) documented in this encounter Care Teams Professional Services Consultant Relationship Specialty Start Date End Date Renee Mora DO [address] [place] [address] PCP - General Family Medicine 06/04/24 Shanae Zarate MD [address] [place] [address] Consulting Physician Cardiology 10/13/20 documented as of this encounter
--- OUTSIDE RECORDS SUMMARY | 2024-10-17 14:40 | XMS_ITS | Encounter Summary ---
Author Organization [facility] Address [address] [place] [address] Care Team Providers Care Automation Specialist Name Role Phone Ubaldo Spring MD Primary Care Provider + [phone] Romero Licea MD Primary Care Provi clifton Shana Mike NP Unavailable + [phone] Julius Canseco MD Unavailable Encounter Details Date Type Department Care Team (Late st Contact Info) Description 09/24/2017 Procedure Pass [facility] Endoscopy [address] [place] [address] Social History Tobacco Use Types [...] on filedocumented in this encounter Care Teams Automation Specialist Relationship Specialty Start Date End Date Ubaldo Spring MD PCP - General Family Medicine 09/20/17 08/02/21 Romero Licea MD [address] [place] [address] PCP - General Family Medicine 08/03/21 Shana Mike NP [address] [place] [address] Nurse Practitioner Physical Medicine and Rehabilitation 11/15/22 Julius Canseco MD [address] [place] [address] Consulting Physician Physical Medicine and Rehabilitation 04/11/23 documented as of this encounter
--- OUTSIDE RECORDS SUMMARY | 2024-10-17 14:40 | XMS_ITS | Encounter Summary ---
Author Organization [facility] [place] [facility] Address [address] [place] [address] Care Team Providers Care Weight Loss Sales Consultant Name Role Phone Romero Licea MD Primary Care Provi clifton Shana Mike NP Unavailable [phone] Julius Canseco MD Unavailable Encounter Details Date Type Department Care Team (Late st Contact Info) Description 10/22/2021 Procedure Pass [facility] Surgery [address] [place] [address] Social History Tobacco Use Types [...] on filedocumented in this encounter Care Teams Weight Loss Sales Consultant Relationship Specialty Start Date End Date Romero Licea MD [address] [place], [place] [id number] PCP - General Family Medicine 08/03/21 Shana Mike, JAYNA [address] [place] [address] Nurse Practitioner Physical Medicine and Rehabilitation 11/15/22 Julius Canseco MD [address] [place] [address] Consulting Physician Physical Medicine and Rehabilitation 04/11/23 documented as of this encounter
--- OUTSIDE RECORDS SUMMARY | 2024-10-17 14:40 | XMS_ITS | Clinical Summary ---
Author Organization [employer] Address [address] [place] [address] Care Team Providers Care Mink Rancher Name Role Phone Shanae Zarate MD Unavailable Renee Mora DO Primary Care Provider [phone] Allergies Active Allergy Reactions Criticality Noted Date [...] - submitted cover my meds 06/16/22 (Toussaint: [id number]) - approved 06/02/22-06/16/23 Request #[id number] md Problem Noted Date Diagnosed Date Type 2 diabetes mellitus wit h diabetic peripheral angiopathy without gangrene, with long-term current use of insulin 07/01/2023 Type 2 diabetes mellitus with other specified co mplication 07/01/2023 Overview (07/01/2023): With mixed hyperlipidemia Assessment & Plan (07/01/2023 1:[address] [facility]): Diabetes is controlled. A1c up because he was off trulicity for a while but been back on it. Stable. Continue present management. Age-related osteoporosis wit hout current pathological fracture 07/26/2022 Overview (07/26/2022): DXA 07/01 right hip -3.6, left hip -3.5 Assessment & Plan (07/26/2022 10:[address] [facility]): Recent pelvic fracture. Counseling about osteopenia/osteoporosis. Discussed [...] LOVETT Assessment & Plan (07/26/2022 10:[address] [facility]): Patient requested refill of his pain medication. [...] is for him to consult with a web site specialist or even update his spine imaging. I will defer this to his pain management team. Bilateral carpal tunnel syndrome 07/26/2022 Overview (07/26/2022): EMG/NCV 07/01 Assessment & Plan (07/26/2022 10:[address] [facility]): I will request his records from Dr. [...] findings. Assessment & Plan (10/13/2020 11:[address] [facility]): Condition is newly identified. Detailed treatment discussed [...] agreement to get in touch with our [facility] team to help him get started on care, assist him to transition to intermediate manager community and for healthy behaviors to manage [...] (03/11/2021 1:37 PM MST): Follow-up with his principal examiner. Abdominal aortic atherosclerosis 06/29/2019 Overview (06/29/2019): CT [...] to stent. Advised to follow-up with his take away man. Benign essential HTN 06/29/2019 Assessment & Plan [...] comorbidities Paroxysmal atrial fibrillation 06/29/2019 Overview (07/01/2023): [id number] Score 3 Assessment & Plan (07/01/2023 1:50 [...] (10/13/2020): Added automatically from request for surgery [id number] Resolved Problems Problem Noted Date Diagnosed Date [...] Type Department Care Team Description 09/05/[address] [place] [address] Renee Mora, Diabetic polyneuropathy associated with type 2 diabetes mellitus (CMS/HCC) 07/29/[address] [place] [address] Gay Rosario MD Chronic obstructive pulmonary disease, [...] often do you attend chur ch or jewish services? Patient declined 07/21/2022 Do you belong to any clubs o r organizations such as pentecostal groups, unions, fraternal or athletic groups, or [...] Date Recorded Depression Risk (PHQ2) Score 0 [facility] - Occupational Stress [...] place to sleep or slept in a intermediate (including now)? No 07/21/2022 Sex and Gender Information Value Date Recorded Sex Assigned at Not on file Legal Sex Male 1:[address] [facility] Gender Identity Not on file Sexual Orientation Not on file Last Filed Vital Signs Vital Sign Reading Time Taken Comments Blood Pressure 122/75 07/01/2023 1:25 PM MST Pulse 74 07/01/2023 1:[address] [facility] Temperature 36.1 ??C (96.9 ??F) 07/01/2023 1:21 PM MS T Respiratory Rate 16 07/21/2022 1:[address] [facility] Oxygen Saturation 98% 07/01/2023 1:21 PM MST [...] X 1, STOOL Routine 10/15/2020 12:[address] [facility] Screening for colorectal cancer HEPATITIS C VIRUS (HCV) ANTIBODY WITH REFLEX TO QUALITATIVE ISABEL Routine 07/26/2018 from Last 3 Months or Most Recently Relevant to Health Maintenance Results * Colonoscopy (08/03/2021) Pathologist [facility] Colonoscopy colon polyps Historical Provider MD HEALTH MAINTENANCE Final Result * Occult blood x 1, stool (10/15/2020 12:[address] [facility]) [facility] Occult Bld Immunochem Negative Negative [employer] Comment: Assay sensitivity is >95% when 50 ug Hb/g of stool is present. ?? Clinical sensitivity for colorectal cancer is 87%, ??and for large adenomas is 47%, based on an evaluation of 240 individuals in a premarket commercial data set used for FDA approval. Overall, clinical specificity is 97.7%. Stool (Per Rectum) 10/15/2020 10/22/2020 7:[address] [facility] Narrative [facility] - 10/15/2020 12:[address] [facility] Time/Date of collection taken from specimen. Copy being sent to: Results Only Account [employer] Romero Lovett MD LAB BODY FLUIDS AND STOOLS OR DERABLES Edited Result - Final Performing Organization Address City/[facility]/ZIP Co de Phone Number [employer] [facility] [place] [address] [place] [address] * Hepatitis C Virus (HCV) Antibody With [...] ORDERABLES Final Re sult Performing Organization Address City/[facility]/ZIP Co de Phone Number [facility] [address] from Last 3 Months or Most Recently Relevant to Health Maintenance Care Teams Mink Rancher Relationship Specialty Start Date End Date Renee Mora DO [address] [place] [address] PCP - General Family Medicine 06/04/24 Shanae Zarate MD [address] [place] [address] Consulting Physician Cardiology 10/13/20
--- OUTSIDE RECORDS SUMMARY | 2024-10-17 14:40 | XMS_ITS | Encounter Summary ---
Author Organization [employer] Address [address] [place] [address] Care Team Providers Care Fast Food Team Member Name Role Phone Shanae Zarate MD Unavailable Renee Mora DO Primary Care Provider [phone] Reason for Visit * Reason Comments Med Refill Encounter Details Date Type Department Care Team (Late st Contact Info) Description 07/15/2024 Refill [facility] [address] [facility] [address] [place] [address] Gay Rosario MD [address] [place], [place] [id number] Diabetic polyneuropathy associated with type 2 diabetes mellitus ([facility]/HCC) Social History Tobacco Use Types Packs/Day Years [...] often do you attend chur ch or spiritism services? Patient declined 07/21/2022 Do you belong to any clubs o r organizations such as rastafari groups, unions, fraternal or athletic groups, or [...] Date Recorded Depression Risk (PHQ2) Score 0 [facility] - Occupational Stress Questionnaire Answer Date Recorded [...] place to sleep or slept in a group home (including now)? No 07/21/2022 Sex and Gender Information Value Date Recorded Sex Assigned at Not on file Legal Sex Male 1:57 AM MST Gender Identity Not on file Sexual Orientation Not on file documented as of this encounter Miscellaneous Notes * Telephone Encounter - Tana Ndiaye CPHT - 07/18/2024 5:56 AM MST RFA TEAM No staff refills--now living in [place]--see Metformin request--see Apr 2024 refill request documented in this encounter Plan of Treatment Not on file documented as of this encounter Visit Diagnoses Diagnosis Diabetic polyneuropathy associated with type 2 diabetes mellitus (CMS/HCC) documented in this encounter Care Teams Fast Food Team Member Relationship Specialty Start Date End Date Renee Mora DO [address] [place] [address] PCP - General Family Medicine 06/04/24 Shanae Zarate MD [address] [place] [address] Consulting Physician Cardiology 10/13/20 documented as of this encounter
--- OUTSIDE RECORDS SUMMARY | 2024-10-17 14:41 | XMS_ITS | Encounter Summary ---
Author Organization [employer] Address [address] [place] [address] Care Team Providers Care Adjustment Clerk Name Role Phone Romero Licea MD Primary Care Provider Shanae Zarate MD Unavailable Princess Monroy COMPLAINT MANAGER Unavailable Luh NashD Unavailable Cathy Tee RN Unavailable Romero Licea MD Unavailable Renee Mora DO Unavailable Renee Mora DO Primary Care Provider Reason for Visit * Reason Comments Med Refill Encounter Details Date Type Department Care Team (Late st Contact Info) Description 05/04/2019 Refill [facility] [address] [place], [place] [id number] Nirmal Huizar MD [address] [place] [address] Social History Tobacco Use Types Packs/Day Years Used Date Smoking Tobacco: Never Assessed Sex and Gender Information Value Date Recorded Sex Assigned at Not on file Legal Sex Male 1:57 AM [facility] Gender Identity Not on file Sexual Orientation Not on file documented as of this encounter Plan of Treatment Not on file documented as of this encounter Visit Diagnoses Not on filedocumented in this encounter Care Teams Adjustment Clerk Relationship Specialty Start Date End Date Romero Licea MD PCP - General Family Medicine 06/27/19 05/27/24 Romero Licea MD [address] [place] [address] PCP - Medicare Advantage - Attributed PCP 10/09/22 07/10/23 Renee Mora DO [address] [place] [address] PCP - Medicare Advantage - Attributed PCP 07/11/23 06/09/24 Renee Mora DO [address] [place] [address] PCP - General Family Medicine 06/04/24 Shanae Zarate MD [address] [place] [address] Consulting Physician Cardiology 10/13/20 Princess Monroy LCSW [address] [place] [address] Emergency Department Direct Care Supervisor 10/31/20 05/27/24 Luh Nash, HunterD [address] [place] [address] Clinical Pharmacist Pharmacy 11/24/20 03/04/22 Cathy Tee, RN [address] [place] [address], [place] [address] Field Geologist (PH Nurse) Care Management 08/17/21 documented as of this encounter
--- OUTSIDE RECORDS SUMMARY | 2024-10-17 14:41 | XMS_ITS | Clinical Summary ---
Author Organization [facility] Address [address] [place] [address] Care Team Providers Care Head Of Global Strategic Partnerships Name Role Phone Romero Licea MD Primary Care Provi clifton Shana Mike NP Unavailable [phone] Julius Canseco MD Unavailable Allergies No known [...] (10/06/2021): Added automatically from request for surgery [id number] Lumbar radiculopathy 10/05/2021 Overview (10/05/2021): Added automatically from request for surgery [id number] Fever 09/23/2017 Asthma 09/21/2017 HIV (human immunodeficiency virus infection) COPD (chronic obstructive pulmonary disease) Hypertension 09/21/2017 Polycythemia 09/21/2017 Hyponatremia 09/21/2017 Dehydration 09/20/[address] scan, stomach 09/20/2017 Overview (09/23/2017): Added automatically from request for surgery [id number] Social History Tobacco Use Types Packs/Day Years [...] T Respiratory Rate 16 04/11/2023 5:00 PM [facility] Oxygen Saturation 99% 04/11/2023 5:00 [...] abdomen pelvis with contrast (09/21/2017 8:44 PM [facility]) Anatomical Region Laterality Modality Abdomen, Chest, Pelvis, Hip Comp uted Tomography 09/21/2017 8:42 PM [facility] Narrative 09/21/2017 8:[address] [facility] [address] THORAX, ABDOMEN AND PELVIS [...] * (ABNORMAL) Hemoglobin A1c (09/21/2017 4:47 AM [facility]) Hemoglobin A1C 8.5(H) <=5.7 % 09/21/2017 9:55 AM [facility] EAG 197.3 mg/dL 09/21/2017 9:55 AM [facility] Blood BLOOD SPECIMEN / Unknown Venipuncture / Unknown 09/21/2017 4:47 AM MST 09/21/2017 4:[address] [facility] - 09/21/2017 9:55 AM [facility] The [place] Diabetes Association (ADA) guidelines for interpreting Hemoglobin A1C are as follows: Non-Diabetic patient: <5.7% Increased risk for future Diabetes: 5.7-6.4% ADA diagnostic criteria for Diabetes: >6.4% Values for patients with Diabetes: Result <7.0%: ??Meets ADA's recommendation goal for therapy. Result 7.0-8.0%: Exceeds ADA's recommended goal. Result >8.0%: ADA recommends reevaluation of therapy. Dre Perez MD LAB BLOOD ORDERAB LES [place] [id number], [facility] [phone] from Last 3 Months or Most Recently Relevant to Health Maintenance Advance Directives For more information, please contact: [phone] * Full Code (Latest Code Status on File) Date Activated Date Inactivated Comments 09/20/2017 8:25 PM 09/26/2017 4:14 PM Care Teams Head Of Global Strategic Partnerships Relationship Specialty Start Date End Date Romero Licea MD [address] [place] [address] PCP - General Family Medicine 08/03/21 Shana Mike NP [address] [place], [place] [id number] Nurse Practitioner Physical Medicine and Rehabilitation 11/15/22 Julius Canseco MD [address] [place], [place] [address] Consulting Physician Physical Medicine and Rehabilitation 04/11/23
--- OUTSIDE RECORDS SUMMARY | 2024-10-17 14:41 | XMS_ITS | Encounter Summary ---
Author Organization [facility] [place] [facility] Address [address] [place] [address] Care Team Providers Care Houseperson Name Role Phone Romero Licea MD Primary Care Provi clifton Shana Mike NP Unavailable [phone] Julius Canseco MD Unavailable Encounter Details Date Type Department Care Team (Late st Contact Info) Description 01/21/2022 Procedure Pass [facility] Surgery [address] [place] [address] Social History Tobacco Use Types [...] on filedocumented in this encounter Care Teams Houseperson Relationship Specialty Start Date End Date Romero Licea MD [address] [place], [place] [id number] PCP - General Family Medicine 08/03/21 Shana Mike, PENOLOGY TEACHER [address] [place] [address] Nurse Practitioner Physical Medicine and Rehabilitation 11/15/22 Julius Canseco MD [address] [place] [address] Consulting Physician Physical Medicine and Rehabilitation 04/11/23 documented as of this encounter
--- OUTSIDE RECORDS SUMMARY | 2024-10-17 14:41 | XMS_ITS | Encounter Summary ---
Author Organization [employer] Address [address] [place] [address] Care Team Providers Care Histotechnician Name Role Phone Romero Licea MD Primary Care Provider Shanae Zarate MD Unavailable Princess Monroy CLIMATOLOGY TEACHER Unavailable [phone] Luh NashD Unavailable Cathy Tee RN Unavailable Romero Licea MD Unavailable Renee Mora DO Unavailable Renee Mora DO Primary Care Provider Reason for Visit * Reason Comments Med Refill Encounter Details Date Type Department Care Team (Late st Contact Info) Description 05/25/2019 Refill [facility] [address] [place], [place] [id number] Nirmal Huizar MD [address] [place] [address] Social History Tobacco Use Types Packs/Day Years Used Date Smoking Tobacco: Never Assessed Sex and Gender Information Value Date Recorded Sex Assigned at Not on file Legal Sex Male 1:57 AM [facility] Gender Identity Not on file Sexual Orientation Not on file documented as of this encounter Plan of Treatment Not on file documented as of this encounter Visit Diagnoses Not on filedocumented in this encounter Care Teams Histotechnician Relationship Specialty Start Date End Date Romero Licea MD PCP - General Family Medicine 06/27/19 05/27/24 Romero Licea MD [address] [place] [address] PCP - Medicare Advantage - Attributed PCP 10/09/22 07/10/23 Renee Mora DO [address] [place] [address] PCP - Medicare Advantage - Attributed PCP 07/11/23 06/09/24 Renee Mora DO [address] [place] [address] PCP - General Family Medicine 06/04/24 Shanae Zarate MD [address] [place] [address] Consulting Physician Cardiology 10/13/20 Princess Monroy LCSW [address] [place] [address] Vehicle Delivery Worker Dynamometer Tuner 10/31/20 05/27/24 Luh Nash, HunterD [address] [place] [address] Clinical Pharmacist Pharmacy 11/24/20 03/04/22 Cathy Tee, RN [address] [place] [address], [place] [address] Component Engineer (PH Nurse) Care Management 08/17/21 documented as of this encounter
--- OUTSIDE RECORDS SUMMARY | 2024-10-17 14:41 | XMS_ITS | Encounter Summary ---
Author Organization [facility] Address [address] [place] [address] Care Team Providers Care Guncotton Packer Name Role Phone Romero Licea MD Primary Care Provi clifton Shana Mike NP Unavailable [phone] Julius Canseco MD Unavailable Encounter Details Date Type Department Care Team (Late st Contact Info) Description 02/04/2022 Procedure Pass [facility] Surgery [address] [place] [address] Social History Tobacco Use Types [...] on filedocumented in this encounter Care Teams Guncotton Packer Relationship Specialty Start Date End Date Romero Licea MD [address] [place], [place] [id number] PCP - General Family Medicine 08/03/21 Shana Mike, ACCOUNTS RECEIVABLE SPECIALIST [address] [place] [address] Nurse Practitioner Physical Medicine and Rehabilitation 11/15/22 Julius Canseco MD [address] [place] [address] Consulting Physician Physical Medicine and Rehabilitation 04/11/23 documented as of this encounter
--- OUTSIDE RECORDS SUMMARY | 2024-10-17 14:41 | XMS_ITS | Encounter Summary ---
Author Organization [employer] Address [address] [place] [address] Care Team Providers Care Statement Request Clerk Name Role Phone Romero Licea MD Primary Care Provider Shanae Zarate MD Unavailable Princess Monroy MACHINE MOLDER Unavailable [phone] Luh NashD Unavailable Cathy Tee RN Unavailable Romero Licea MD Unavailable Renee Mora DO Unavailable Renee Mora DO Primary Care Provider Reason for Visit * Reason Comments Med Refill Encounter Details Date Type Department Care Team (Late st Contact Info) Description 06/27/2019 Refill [facility] [address] [place], [place] [id number] Nirmal Huizar MD [address] [place] [address] Social History Tobacco Use Types Packs/Day Years Used Date Smoking Tobacco: Never Assessed Sex and Gender Information Value Date Recorded Sex Assigned at Not on file Legal Sex Male 1:57 AM [facility] Gender Identity Not on file Sexual Orientation Not on file documented as of this encounter Plan of Treatment Not on file documented as of this encounter Visit Diagnoses Not on filedocumented in this encounter Care Teams Statement Request Clerk Relationship Specialty Start Date End Date Romero Licea MD PCP - General Family Medicine 06/27/19 05/27/24 Romero Licea MD [address] [place] [address] PCP - Medicare Advantage - Attributed PCP 10/09/22 07/10/23 Renee Mora DO [address] [place] [address] PCP - Medicare Advantage - Attributed PCP 07/11/23 06/09/24 Renee Mora DO [address] [place] [address] PCP - General Family Medicine 06/04/24 Shanae Zarate MD [address] [facility] [place] [address] Consulting Physician Cardiology 10/13/20 Princess Monroy LCSW [address] [place] [address] Manager Poker Pedigree Researcher 10/31/20 05/27/24 Luh Nash, HunterD [address] [place] [address] Clinical Pharmacist Pharmacy 11/24/20 03/04/22 Cathy Tee, RN [address] [place] [address], [place] [address] Transporter Radiology (PH Nurse) Care Management 08/17/21 documented as of this encounter
--- OUTSIDE RECORDS SUMMARY | 2024-10-17 14:41 | XMS_ITS | Continuity of Care Document ---
Author Organization [facility] ter Address [address] [place] [address] Phone Care Team Providers Care Hospital Secretary Name Role Phone Unavailable Unavailable Unavailable Medications [...] Diagnoses Date Provider Providers Copied on Encounter [facility], [facility] [place], [id number], tel:[phone] Conversion Location [place] No Information No Information [facility], [facility] [place], [id number], tel:[phone] Conversion Location [facility] 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 [address] , [facility] [address], [place], [place], [id number], . tel:[phone] Family History Family Member Type Diagnosis Age At Onset No Information Payers Payer name Insurance type Covered alliance party ID Authoriza tion(s) No Information Social [...]
--- OUTSIDE RECORDS SUMMARY | 2024-10-17 14:41 | XMS_ITS | Encounter Summary ---
Author Organization [facility] Address [address] [place] [address] Care Team Providers Care Recruitment Internship Name Role Phone Romero Licea MD Primary Care Provi clifton Shana Mike POLYSOMNOGRAPHIC TECHNICIAN Unavailable [phone] Julius Canseco MD Unavailable Encounter Details Date Type Department Care Team (Late st Contact Info) Description 04/25/2023 Procedure Pass [facility] Surgery [address] [place] [address] Social History Tobacco Use Types [...] on filedocumented in this encounter Care Teams Recruitment Internship Relationship Specialty Start Date End Date Romero Licea MD [address] [place], [place] [phone] PCP - General Family Medicine 08/03/21 Shana Mike, JAYNA [address] [place] [address] Nurse Practitioner Physical Medicine and Rehabilitation 11/15/22 Julius Canseco MD [address] [place] [address] Consulting Physician Physical Medicine and Rehabilitation 04/11/23 documented as of this encounter
--- OUTSIDE RECORDS SUMMARY | 2024-10-17 14:41 | XMS_ITS | Encounter Summary ---
Author Organization [facility] Address [address] [place] [address] Care Team Providers Care Vmware Engineer Name Role Phone Romero Licea MD Primary Care Provi clifton Shana Mike NP Unavailable [phone] Julius Canseco MD Unavailable [phone] Encounter Details Date Type Department Care Team (Late st Contact Info) Description 04/11/2023 Procedure Pass [facility] Surgery [address] [place] [address] Social History Tobacco Use Types [...] on filedocumented in this encounter Care Teams Vmware Engineer Relationship Specialty Start Date End Date Romero Licea MD [address] [place], [place] [phone] PCP - General Family Medicine 08/03/21 Shana Mike, JAYNA [address] [place] [address] Nurse Practitioner Physical Medicine and Rehabilitation 11/15/22 Julius Canseco MD [address] [place] [address] Consulting Physician Physical Medicine and Rehabilitation 04/11/23 documented as of this encounter
[2024-10-17 14:57] LABS: MANUAL DIFF FLAG NO
[2024-10-17 15:00] LABS: Basophils Percent Auto 0.6 % (0-2); Eosinophils Percent Auto 0.7 % (0-4); Hematocrit 38.7 % (42.0-52.0); Hemoglobin 13.2 g/dl (14.0-18.0); Imm Gran Abs Auto 0.01 X10*3/uL (0.00-0.03); Imm Gran Pct Auto 0.2 % (0.0-0.4); Lymphocytes Absolute Auto 1.6 X10*3/uL (1.2-4.9); Lymphocytes Percent Auto 29.2 % (20-40); Mean Corpuscular HGB Conc 34.1 g/dl (31.0-36.0); Mean Corpuscular Hemoglobin 28.7 pg (27.0-33.0); Mean Corpuscular Volume 84.1 fL (80.0-98.0); Mean Platelet Volume 9.5 fL (9.4-12.4); Monocytes Absolute Auto 0.3 X10*3/uL (0.1-1.2); Monocytes Percent Auto 5.8 % (2-11); Neutrophils Absolute Auto 3.4 x10*3/uL (2.0-8.3); Neutrophils Percent Auto 63.5 % (45-73); Platelet Count 261 X10*3/uL (160-400); Red Cell Distribution Width 13.3 % (11.0-16.0); White Blood Count 5.4 X10*3/uL (4.8-10.8)
[2024-10-17 15:20] LABS: Alanine Aminotransferase 10 U/L (0-40); Albumin Level 3.7 g/dL (3.5-5.0); Alkaline Phosphatase 84 U/L (39-117); Anion Gap 6 (12-20); Aspartate Amino Transferase 20 U/L (5-37); Bilirubin Total 0.6 mg/dL (0.0-1.0); Blood Urea Nitrogen 11 mg/dL (9-16); Calcium 8.9 mg/dL (8.4-10.2); Carbon Dioxide 28 mmol/L (22-29); Chloride 107 mmol/L (96-108); Cholesterol 129 mg/dL (<200); Estimated Glomerular Filt Rate > 60; Glucose Fasting 63 mg/dL (60-99); HDL Cholesterol 35 mg/dL (>40); LDL Cholesterol Calculated 70 mg/dL (<100); Potassium 3.7 mmol/L (3.3-5.1); Sodium 137 mmol/L (135-145); Total Protein 6.9 g/dL (6.5-8.0); Triglycerides 123 mg/dL (<150)
[2024-10-17 15:30] LABS: Prostate Specific Antigen Scr 1.51 ng/mL (<0.05-4.0)
[2024-10-17 15:36] LABS: TSH reflex Free T4 1.02 uIU/mL (0.32-4.0)
[2024-10-17 15:45] LABS: Creatinine Urine 149.66 mg/dL
[2024-10-18 14:53] LABS: HIV RNA PCR Qn Copies 97 copies/mL (NOT DETECTED); HIV RNA PCR Qn Log Copies 1.99 (NOT DETECTED)
== END 2024-10-17 12:42 | disposition home or self-care (01) ==
LOC: HO.WFDLDS 12:41
PROVIDERS: Visit Provider Physician Assistant
DX: Z76.89 Persons encountering health services in other specified circumstances (principal); I10 Essential (primary) hypertension; E11.9 Type 2 diabetes mellitus without complications; I25.10 Atherosclerotic heart disease of native coronary artery without angina pectoris; F41.8 Other specified anxiety disorders; K63.5 Polyp of colon; Z21 Asymptomatic human immunodeficiency virus [HIV] infection status; J44.9 Chronic obstructive pulmonary disease, unspecified; Z85.828 Personal history of other malignant neoplasm of skin; Z79.4 Long term (current) use of insulin; Z12.5 Encounter for screening for malignant neoplasm of prostate
CPT/HCPCS: 36415; 80053; 80061; 82043; 82570; 84153; 84443; 85025; 87536; 96127; 99202

== ENCOUNTER 2024-11-21 10:46 | Outpatient (AMB) | payer MEDICARE, SELFPAY ==
--- NOTE | 2024-11-21 11:03 | A.OFFPC_ITS ---
Vital Signs 11/21/24 11:07 Weight 186 lb 6 oz BP 108/62 Blood Pressure Location Lt brachial Position Sitting Respiration 18 Pulse 69 Pulse Source Pulse Oximeter Pulse Oximetry (%) 97 Oxygen Delivery Method Room Air Intake Visit Reasons: dm, anxiety, f.u Intake Note: Follow up. Missed Endo appt yesterday because the ride did not show up. Allergies No Known Allergies Allergy (Verified 05/01/20 13:13) Medication List - Last Reconciled 11/21/24 by Mirian Bermudez PA-C albuterol sulfate 90 mcg/actuation 2 puffs inhalation Q6H PRN atorvastatin 40 mg PO BEDTIME [id number] ala (Biktarvy) PO dulaglutide (Trulicity) 3 mg (0.5 mL) subcut QWEEK escitalopram oxalate 10 mg PO DAILY insulin glargine (Lantus Solostar U-100 Insulin) 10 units (0.1 mL) subcut QPM lisinopril 40 mg PO DAILY metformin 1,000 mg PO BID pen needle, diabetic Use BID As directed trazodone 50 mg PO BEDTIME Tobacco use date assessed: 10/17/24 Fall risk assessment: No Falls in past year Last assessed Fall Risk: 11/21/24 Dental Screening Dental Screen Date: 10/17/24 HPI dm, anxiety, f.u HPI Details Pt is a 69 y/o male who presents today for a follow up. He is relatively new here transferring from [place] and moved here about a year ago. He has a hx of HIV, dyslipidemia, htn, CAD s/p stents, colon polyps, and t2dm. Has appointment with Derm booked, missed endo and ID appointments and has not yet scheduled with GI CV: he was following with cardiology in [facility]. He states he has 3 stents placed in 2016. He was on plavix until 2022 when he had a colonoscopy and 3 polyps removed that then caused him to bleed. He states he needed multiple blood transfusions. He is on lisinopril 40 mg and bp today is 126/72. He is on atorvastatin 40 mg for cholesterol management. Endo: He states he is a t2dm and was dx around 1989. He is on lantus 32 units nightly, metformin 1000 mg bid, and Trulicity 1.5 mg weekly. No low blood sugars. A1c today is 5.7. -He has tried actos but caused hypoglyce ramila ID: on Biktarvy. He was dx around 2009. Psych: He is on lexapro 10 mg and trazodone. tolerating trazodone well and feels that it is helpful. No SI/HI Colonoscopy: has polyps overdue-states that they were calling him to schedule it this year. PSA: UTD COUNTS INCLUDE 234 BEDS AT THE [facility] Medical History (Updated 10/26/24 @ 12:15 by Mirian Bermudez PA-C) Hyperlipidemia Diabetes High blood pressure Surgical History (Updated 05/01/20 @ 13:12 by Rachel Steel RN) Hx of heart artery stent Social History Housing: House Housing Other:: Lives with melina. Normally lived in an RV, but is currently in the shop Patient Tobacco Use Status: Never used Tobacco e-Cigarette/Vaping Use: Never Used Second Hand Smoke Exposure: Yes service: No Current occupational status: retired Cognitive needs: No Hearing needs: Yes (Hearing aids. Did not put them in today. ) Vision needs: No Questionnaire Thrive Questionnaire Date Thrive assessed: 10/17/24 I am a: Patient What is your living situation today?: I have a steady place to live Within the past 12 months, did the food you bought not last and you didn't have the money to get more?: Sometimes True Within the past 12 months, did you worry whether your food would run out before you got money to buy more?: Sometimes True Do you have trouble paying for medicines?: Yes Do you have trouble getting transportation to medical appointments?: No Do you have trouble paying your heating and electricity bill?: Yes Do you have trouble taking care of your child, family member or friend?: No Do you have trouble with day-to-day activities such as bathing, preparing meals, shopping, managing finances, etc.?: No Are you currently unemployed and looking for a job?: No Are you interested in more education?: No Currently or been in a relationship where the following occur: No concerns reported THRIVE Score: 3 AUDIT C Alcohol Use Questionnaire (AUDIT-C) 2. How many drinks containing alcohol do you have on a typical day when you are drinking?: 1 or 2 3. How often do you have six or more drinks on one occasion?: Never Total Score: 0 EDIS-7 AMB Questionnaire EDIS-7 Date EDIS - 7 assessed: 10/17/24 Source: Developed by Drs. Kvng Viera, Zonia Schilling, Chandra Torres and colleagues, with an educational joss from [employer]. Physical exam (Primary Care) Vital Signs: Last Vital Signs Pulse 69 11/21/24 11:07 Resp 18 11/21/24 11:07 BP 108/62 11/21/24 11:07 Pulse Ox 97 11/21/24 11:07 Oxygen Delivery Method Room Air 11/21/24 11:07 Tobacco/Smoking Status: Tobacco use Status Tobacco use date assessed 10/17/24 11/21/24 11:03 Patient Tobacco Use Status Never used Tobacco 11/21/24 11:03 e-Cigarette/Vaping Use Never Used 11/21/24 11:03 Thrive Assessment: Date of Thrive Assessment Date Thrive assessed 10/17/24 11/21/24 11:03 Currently or been in a relationship where the following occur: No concerns reported Const Orientation/consciousness: patient oriented x3 HENMT Ears: hearing grossly normal bilaterally Neck Thyroid: Thyroid normal Lymphatic: no lymphadenopathy noted Resp Auscultation: clear to auscultation bilaterally Cardio Rate: regular rate Rhythm: regular rhythm Heart sounds: S1 normal heart sound present and S2 normal heart sound present GI Inspection: Yes normal to inspection Palpation (GI): Soft to palpation and Other GI palpation findings present (nontender, no cva tenderness) Auscultation: normoactive bowel sounds Rectal Exam - Male: Yes deferred Skin General skin exam: no rashes or lesions noted Neuro General: patient oriented x3, gait normal and no focal motor deficits Results Reviewed Results Reviewed: Laboratory Tests 10/17/24 12:45 WBC 5.4 RBC 4.60 Hgb 13.2 L Hct 38.7 L Plt Count 261 Sodium 137 Potassium 3.7 Chloride 107 Carbon Dioxide 28 Anion Gap 6 L BUN 11 Creatinine 0.92 Estimated GFR > 60 Fasting Glucose 63 AST 20 ALT 10 Triglycerides 123 Cholesterol 129 LDL Cholesterol, Calc 70 HDL Cholesterol 35 L PSA Screen 1.51 TSH 1.02 HIV-1 RNA copies/mL 97 H HIV-1 RNA logcopies/mL 1.99 H Coding Level of Care Code Est Pt Level 4 (58743) Complex EM visit Add On G2211 Diagnoses Type 2 diabetes mellitus, with long-term current use of insulin E11.9; Z79.4 HIV (human immunodeficiency virus infection) Z21 High blood pressure I10 COPD (chronic obstructive pulmonary disease) J44.9 Assessment & Plan Assessment & Plan (1) Type 2 diabetes mellitus, with long-term current use of insulin: Code(s): E11.9 - Type 2 diabetes mellitus without complications; Z79.4 - FDC (current) use of insulin Category: Medical Plan: Reduce Lantus to 10 units Increase Trulicity as he tolerates this well. Discussed that my ultimate plan will be to take him off of insulin. Continue metformin. Short term follow up to be reassessed in who determine whether or not he needs the insulin. Advised he has to stop it should he develop any hypoglycemic events. (2) HIV (human immunodeficiency virus infection): Code(s): Z21 - Asymptomatic human immunodeficiency virus [HIV] infection status Category: Medical Plan: He was provided the phone number to Infectious Disease and advised to contact [facility] to arrange follow up. Address was also provided. (3) High blood pressure: Code(s): I10 - Essential (primary) hypertension Category: Medical Plan: WNL. Continue current regimen (4) COPD (chronic obstructive pulmonary disease): Code(s): J44.9 - Chronic obstructive pulmonary disease, unspecified Category: Medical Plan: Denies ever smoking. PFTs are scheduled. Advised that he is to keep this appointment. Referral to pulmonology. Orders: Referrals Pulmonology Referral J44.9 - Chronic obstructive pulmonary disease, unspecified Medications: New dulaglutide (Trulicity) 3 mg (0.5 mL) subcut QWEEK 2 mL 5RF Changed From insulin glargine (Lantus Solostar U-100 Insulin) 32 units (0.32 mL) subcut QPM 15 mL 2RF To insulin glargine (Lantus Solostar U-100 Insulin) 10 units (0.1 mL) subcut QPM 15 mL 2RF Discontinued dulaglutide (Trulicity) Discontinued Reason: Doctor's Order 1.5 mg (0.5 mL) subcut QWEEK 2 mL 3RF Patient Instructions: Practice Location [facility] Infectious Disease [phone] tel: [phone] [address] [facility], [place] [address]
[2024-11-21 11:07] VITALS: BP 108/62; PULSE 69; RESP 18; O2SAT 97
--- OUTSIDE RECORDS SUMMARY | 2024-11-21 11:50 | XMS_ITS | Clinical Summary ---
Author Organization [facility] Address [address] [place] [address] Care Team Providers Care Landscape Architecture Professor Name Role Phone Shanae Zarate MD Unavailable Renee Mora DO Primary Care Provider [phone] Allergies Active Allergy Reactions Criticality Noted Date [...] - submitted cover my meds 06/16/22 (Toussaint: [id number]) - approved 06/02/22-06/16/23 Request #[id number] la Problem Noted Date Diagnosed Date Type 2 diabetes mellitus wit h diabetic peripheral angiopathy without gangrene, with long-term current use of insulin 07/01/2023 Type 2 diabetes mellitus with other specified co mplication 07/01/2023 Overview (07/01/2023): With mixed hyperlipidemia Assessment & Plan (07/01/2023 1:51 PM [facility]): Diabetes is controlled. A1c up because he was off trulicity for a while but been back on it. Stable. Continue present management. Age-related osteoporosis wit hout current pathological fracture 07/26/2022 Overview (07/26/2022): DXA 07/01 right hip -3.6, left hip -3.5 Assessment & Plan (07/26/2022 10:48 AM [facility]): Recent pelvic fracture. Counseling about [...] LOVETT Assessment & Plan (07/26/2022 10:55 AM [facility]): Patient requested refill of his [...] is for him to consult with a equipment specialist or even update his spine imaging. I will defer this to his pain management team. Bilateral carpal tunnel syndrome 07/26/2022 Overview (07/26/2022): EMG/NCV 07/01 Assessment & Plan (07/26/2022 10:56 AM [facility]): I will request his records [...] findings. Assessment & Plan (10/13/2020 11:44 AM [facility]): Condition is newly identified. 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 Abdominal aortic atherosclerosis 06/29/2019 Overview (06/29/2019): CT [...] to stent. 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 Benign essential HTN 06/29/2019 Assessment & Plan [...] comorbidities Paroxysmal atrial fibrillation 06/29/2019 Overview (07/01/2023): [id number] Score 3 Assessment & Plan (07/01/2023 1:50 [...] (10/13/2020): Added automatically from request for surgery [id number] Resolved Problems Problem Noted Date Diagnosed Date [...] Type Department Care Team Description 09/05/[address] [place] [address] Renee Mora, DO Diabetic polyneuropathy associated with type 2 diabetes mellitus (CMS/HCC) from Last 3 Months Immunizations Name Administration Dates Next Due LISA Larios SARS-CoV-2 mRNA LNP, PF Vaccine (R ed) [...] Never 07/21/2022 How often do you attend [facility] or bahai services? Patient declined 07/21/2022 Do you belong to any clubs o r organizations such as roman catholic groups, unions, fraternal or athletic groups, or [...] Date Recorded Depression Risk (PHQ2) Score 0 [facility] - Occupational Stress Questionnaire Answer Date Recorded [...] PM MST Pulse 74 07/01/2023 1:21 PM MST Temperature 36.1 ??C (96.9 ??F) 07/01/2023 1:21 PM MS T Respiratory Rate 16 07/21/2022 1:37 PM MST Oxygen Saturation 98% 07/01/2023 1:21 PM MST [...] 07/21/2023 07/21/2022 Complete Annual HRA 07/21/2023 07/21/2022, Influenza Vaccine (Season Ended) 2025 04/14/2021, 04/28/2016, 04/28/2016 DTaP,Tdap,and Td Vaccines (3 - Td or Tdap) 06/30/2028 06/30/2018, 03/31/2016 Colonoscopy 08/03/2031 08/03/2021 Colorectal Cancer Screening 08/03/2031 Hepatitis C Screening Completed 07/26/2018 Pneumococcal Vaccine: 50+ Years Completed 07/21/2022, 07/26/2018, 03/31/2016 Procedures Procedure Name Priority Date/Time Associated Diagnosis Comments COLONOSCOPY Routine 08/03/2021 OCCULT BLOOD X 1, STOOL Routine 10/15/2020 12:00 AM [facility] Screening for colorectal cancer HEPATITIS C VIRUS (HCV) ANTIBODY WITH REFLEX TO QUALITATIVE ISABEL Routine 07/26/2018 from Last 3 Months or Most Recently Relevant to Health Maintenance Results * Colonoscopy (08/03/2021) Colonoscopy colon polyps Historical Provider HEALTH MAINTENANCE Final Result * Occult blood x 1, stool (10/15/2020 12:00 AM [facility]) Pathologist [facility] Occult Bld Immunochem Negative Negative clipkit Comment: Assay sensitivity is >95% when 50 ug Hb/g of stool is present. ?? Clinical sensitivity for colorectal cancer is 87%, ??and for large adenomas is 47%, based on an evaluation of 240 individuals in a premarket commercial data set used for FDA approval. Overall, clinical specificity is 97.7%. Stool (Per Rectum) 10/15/2020 10/22/2020 7:18 PM MST Narrative [facility] - 10/15/2020 12:00 AM [facility] Time/Date of collection taken from specimen. Copy being sent to: Results Only Account [employer] Romero Lovett MD LAB BODY FLUIDS AND STOOLS OR DERABLES Edited Result - Final Mashed Pixel [address] [address] * Hepatitis C Virus (HCV) Antibody With [...] HCV antibody present in the sample. 07/26/2018 us Romero Lovett MD LAB BLOOD ORDERABLES Final Re sult [facility] [address] from Last 3 Months or Most Recently Relevant to Health Maintenance Care Teams Landscape Architecture Professor Relationship Specialty Start Date End Date Renee Mora DO [address] [place] [address] PCP - General Family Medicine 06/04/24 Shanae Zarate MD [address] [place] [address] Consulting Physician Cardiology 10/13/20
--- OUTSIDE RECORDS SUMMARY | 2024-11-21 11:50 | XMS_ITS | Encounter Summary ---
Author Organization [facility] Address [address] [place] [address] Care Team Providers Care Panel Coverer Name Role Phone Romero Licea MD Primary Care Provi clifton Shana Mike NP Unavailable [phone] Julius Canseco MD Unavailable [phone] Encounter Details Date Type Department Care Team (Late st Contact Info) Description 10/08/2021 Procedure Pass [facility] Surgery [address] [place] [address] Social History Tobacco Use Types [...] on filedocumented in this encounter Care Teams Panel Coverer Relationship Specialty Start Date End Date Romero Licea MD [address] [place], [place] [phone] PCP - General Family Medicine 08/03/21 Shana Mike, ROPE TWISTING MACHINE OPERATOR [address] [place] [address] Nurse Practitioner Physical Medicine and Rehabilitation 11/15/22 Julius Canseco MD [address] [place] [address] Consulting Physician Physical Medicine and Rehabilitation 04/11/23 documented as of this encounter
--- OUTSIDE RECORDS SUMMARY | 2024-11-21 11:50 | XMS_ITS | Encounter Summary ---
Author Organization [facility] Address [address] [place] [address] Care Team Providers Care Hot Stone Setter Name Role Phone Romero Licea MD Primary Care Provi clifton Shana Mike NP Unavailable [phone] Julius Canseco MD Unavailable Encounter Details Date Type Department Care Team (Late st Contact Info) Description 10/22/2021 Procedure Pass [facility] Surgery [address] [place], [...] on filedocumented in this encounter Care Teams Hot Stone Setter Relationship Specialty Start Date End Date Romero Licea MD [address] [place], [place] [phone] PCP - General Family Medicine 08/03/21 Shana Mike, JAYNA [address] [place] [address] Nurse Practitioner Physical Medicine and Rehabilitation 11/15/22 Julius Canseco MD [address] [place] [address] Consulting Physician Physical Medicine and Rehabilitation 04/11/23 documented as of this encounter
--- OUTSIDE RECORDS SUMMARY | 2024-11-21 11:50 | XMS_ITS | Encounter Summary ---
Author Organization [facility] Address [address] [place] [address] Care Team Providers Care Retail Receiving Clerk Name Role Phone Ubaldo Spring MD Primary Care Provider [phone] Romeor Licea MD Primary Care Provi clifton Shana Mike NP Unavailable [phone] Julius Canseco MD Unavailable Encounter Details Date Type Department Care Team (Late st Contact Info) Description 09/24/2017 Procedure Pass [facility] Endoscopy [address] [place] [address] Social History Tobacco Use Types [...] on filedocumented in this encounter Care Teams Retail Receiving Clerk Relationship Specialty Start Date End Date Ubaldo Spring MD PCP - General Family Medicine 09/20/17 08/02/21 Romero Licea MD [address] [place] [address] PCP - General Family Medicine 08/03/21 Shana Mike NP [address] [place] [address] Nurse Practitioner Physical Medicine and Rehabilitation 11/15/22 Julius Canseco MD [address] [place] [address] Consulting Physician Physical Medicine and Rehabilitation 04/11/23 documented as of this encounter
--- OUTSIDE RECORDS SUMMARY | 2024-11-21 11:50 | XMS_ITS | Encounter Summary ---
Author Organization [facility] Address [address] [place] [address] Care Team Providers Care Health Care Liaison Name Role Phone Shanae Zarate MD Unavailable Renee Mora DO Primary Care Provider [phone] Reason for Visit * Reason Comments Med Refill Encounter Details Date Type Department Care Team (Late st Contact Info) Description 07/15/2024 Refill [facility] Practice [address] [facility] [address] [place], [place] [id number] Gay Rosario MD [address] [facility] [address] [place], [place] [id number] Diabetic polyneuropathy associated with type 2 diabetes mellitus ([facility]/HCC) Social History Tobacco Use Types Packs/Day [...] often do you attend chur ch or mormon services? Patient declined 07/21/2022 Do you belong to any clubs o r organizations such as mandaeism groups, unions, fraternal or athletic groups, or [...] Date Recorded Depression Risk (PHQ2) Score 0 [facility] - Occupational Stress Questionnaire Answer Date [...] place to sleep or slept in a [place] health care facility (including now)? No 07/21/2022 Sex and Gender Information Value Date Recorded Sex Assigned at Not on file Legal Sex Male 1:57 AM MST Gender Identity Not on file Sexual Orientation Not on file documented as of this encounter Miscellaneous Notes * Telephone Encounter - Tana Ndiaye CPHT - 07/18/2024 5:56 AM MST RFA TEAM No staff refills--now living in [place]--see Metformin request--see Apr 2024 refill request documented in this encounter Plan of Treatment Not on file documented as of this encounter Visit Diagnoses Diagnosis Diabetic polyneuropathy associated with type 2 diabetes mellitus (CMS/HCC) documented in this encounter Care Teams Health Care Liaison Relationship Specialty Start Date End Date Renee Mora DO [address] [place] [address] PCP - General Family Medicine 06/04/24 Shanae Zarate MD [address] [place] [address] Consulting Physician Cardiology 10/13/20 documented as of this encounter
--- OUTSIDE RECORDS SUMMARY | 2024-11-21 11:50 | XMS_ITS | Encounter Summary ---
Author Organization [facility] Address [address] [place] [address] Care Team Providers Care Glue Bone Crusher Name Role Phone Romero Licea MD Primary Care Provi clifton Shana Mike NP Unavailable [phone] Julius Canseco MD Unavailable Encounter Details Date Type Department Care Team (Late st Contact Info) Description 08/03/2021 Procedure Pass [facility] Endoscopy [address] [place] [address] Social History Tobacco Use Types [...] on filedocumented in this encounter Care Teams Glue Bone Crusher Relationship Specialty Start Date End Date Romero Licea MD [address] [place], [place] [phone] PCP - General Family Medicine 08/03/21 Shana Mike, INTERNET SALES CONSULTANT [address] [place], [place] [id number] Nurse Practitioner Physical Medicine and Rehabilitation 11/15/22 Juluis Canseco MD [address] [place], [place] [id number] Consulting Physician Physical Medicine and Rehabilitation 04/11/23 documented as of this encounter
--- OUTSIDE RECORDS SUMMARY | 2024-11-21 11:50 | XMS_ITS | Encounter Summary ---
Author Organization [facility] Address [address] [place] [address] Care Team Providers Care Information Specialist Name Role Phone Shanae Zarate MD Unavailable Renee Mora DO Primary Care Provider [phone] Reason for Visit * Reason Comments Med Refill Encounter Details Date Type Department Care Team (Late st Contact Info) Description 06/23/2024 Refill [facility] [address] [place] [address] [place] [address] [place] [address] [address] [place] [address] Diabetic polyneuropathy associated with type 2 diabetes mellitus ([facility]/HCC) Social History Tobacco Use Types Packs/Day [...] often do you attend chur ch or latter-day services? Patient declined 07/21/2022 Do you belong to any clubs o r organizations such as taoist groups, unions, fraternal or athletic groups, or [...] Date Recorded Depression Risk (PHQ2) Score 0 [facility] - Occupational Stress Questionnaire Answer [...] the money to buy more. Never true 01/11/20 23 Within the past 12 months, t [...] place to sleep or slept in a detention (including now)? No 07/21/2022 Sex and Gender [...] (CMS/HCC) documented in this encounter Care Teams Information Specialist Relationship Specialty Start Date End Date Renee Mora DO [address] [place] [address] PCP - General Family Medicine 06/04/24 Shanae Zarate MD [address] [place] [address] Consulting Physician Cardiology 10/13/20 documented as of this encounter
--- OUTSIDE RECORDS SUMMARY | 2024-11-21 11:50 | XMS_ITS | Encounter Summary ---
Author Organization [facility] Address [address] [place] [address] Care Team Providers Care Barrel Assembler Helper Name Role Phone Ubaldo Spring MD Primary Care Provider [phone] Romero Licea MD Primary Care Provi clifton Shana Mike NP Unavailable [phone] Julius Canseco MD Unavailable Encounter Details Date Type Department Care Team (Late st Contact Info) Description 09/23/2017 Procedure Pass [facility] Endoscopy [address] [place] [address] Social History Tobacco Use Types [...] on filedocumented in this encounter Care Teams Barrel Assembler Helper Relationship Specialty Start Date End Date Ubaldo Spring MD PCP - General Family Medicine 09/20/17 08/02/21 Romero Licea MD [address] [place] [address] PCP - General Family Medicine 08/03/21 Shana Mike NP [address] [place] [address] Nurse Practitioner Physical Medicine and Rehabilitation 11/15/22 Julius Canseco MD [address] [place] [address] Consulting Physician Physical Medicine and Rehabilitation 04/11/23 documented as of this encounter
--- OUTSIDE RECORDS SUMMARY | 2024-11-21 11:51 | XMS_ITS | Encounter Summary ---
Author Organization [facility] Address [address] [place] [address] Care Team Providers Care Civil Clerk Name Role Phone Romero Licea MD Primary Care Provider Shanae Zarate MD Unavailable Princess Monroy HAIRMASTERS MANAGER Unavailable [phone] Luh NashD Unavailable Cathy Tee RN Unavailable Romero Licea MD Unavailable Renee Mora DO Unavailable Renee Mora DO Primary Care Provider Reason for Visit * Reason Comments Med Refill Encounter Details Date Type Department Care Team (Late st Contact Info) Description 05/25/2019 Refill [facility] [address] [place], [place] [address] Nirmal Huizar MD [address] [place] [address] Social History Tobacco Use Types Packs/Day Years Used Date Smoking Tobacco: Never Assessed Sex and Gender Information Value Date Recorded Sex Assigned at Not on file Legal Sex Male 1:57 AM [facility] Gender Identity Not on file Sexual Orientation Not on file documented as of this encounter Plan of Treatment Not on file documented as of this encounter Visit Diagnoses Not on filedocumented in this encounter Care Teams Civil Clerk Relationship Specialty Start Date End Date Romero Licea MD PCP - General Family Medicine 06/27/19 05/27/24 Romero Licea MD [address] [place] [address] PCP - Medicare Advantage - Attributed PCP 10/09/22 07/10/23 Renee Mora DO [address] [place] [address] PCP - Medicare Advantage - Attributed PCP 07/11/23 06/09/24 Renee Mora DO [address] [place] [address] PCP - General Family Medicine 06/04/24 Shanae Zarate MD [address] [facility] [place] [address] Consulting Physician Cardiology 10/13/20 Princess Monroy LCSW [address] [place] [address] Supervisor Farm Equipment Maintenance Cold Work Operator 10/31/20 05/27/24 Luh Nash, HunterD [address] [place] [address] Clinical Pharmacist Pharmacy 11/24/20 03/04/22 Cathy Tee, KAMERON [address] [place] [address] [facility] [place] [address] Carder Blankets ( Nurse) Care Management 08/17/21 documented as of this encounter
--- OUTSIDE RECORDS SUMMARY | 2024-11-21 11:51 | XMS_ITS | Encounter Summary ---
Author Organization [facility] Address [address] [place] [address] Care Team Providers Care Client Relationship Executive Name Role Phone Romero Licea MD Primary Care Provider Shanae Zarate MD Unavailable Princess Monroy WASHER OFF Unavailable [phone] Luh NashD Unavailable Cathy Tee RN Unavailable Romero Licea MD Unavailable Renee Mora DO Unavailable Renee Mora DO Primary Care Provider Reason for Visit * Reason Comments Med Refill Encounter Details Date Type Department Care Team (Late st Contact Info) Description 05/04/2019 Refill [facility] [address] [place], [place] [address] Nirmal Huizar MD [address] [place] [address] Social History Tobacco Use Types Packs/Day Years Used Date Smoking Tobacco: Never Assessed Sex and Gender Information Value Date Recorded Sex Assigned at Not on file Legal Sex Male 1:57 AM [facility] Gender Identity Not on file Sexual Orientation Not on file documented as of this encounter Plan of Treatment Not on file documented as of this encounter Visit Diagnoses Not on filedocumented in this encounter Care Teams Client Relationship Executive Relationship Specialty Start Date End Date Romero Licea MD PCP - General Family Medicine 06/27/19 05/27/24 Romero Licea MD [address] [place] [address] PCP - Medicare Advantage - Attributed PCP 10/09/22 07/10/23 Renee Mora DO [address] [place] [address] PCP - Medicare Advantage - Attributed PCP 07/11/23 06/09/24 Renee Mora DO [address] [place] [address] PCP - General Family Medicine 06/04/24 Shanae Zarate MD [address] [place] [address] Consulting Physician Cardiology 10/13/20 Princess Monroy LCSW [address] [place] [address] Crutch Maker Senior Security Analyst 10/31/20 05/27/24 Luh Nash, HunterD [address] [place] [address] Clinical Pharmacist Pharmacy 11/24/20 03/04/22 Cathy Tee, KAMERON [address] [place] [address] [place] [address] Programming Coordinator ( Nurse) Care Management 08/17/21 documented as of this encounter
--- OUTSIDE RECORDS SUMMARY | 2024-11-21 11:51 | XMS_ITS | Encounter Summary ---
Author Organization [facility] Address [address] [place] [address] Care Team Providers Care Musical String Maker Name Role Phone Romero Licea MD Primary Care Provi clifton Shana Mike NP Unavailable [phone] Julius Canseco MD Unavailable Encounter Details Date Type Department Care Team (Late st Contact Info) Description 01/21/2022 Procedure Pass [facility] Surgery [address] [place] [address] Social History Tobacco Use Types [...] on filedocumented in this encounter Care Teams Musical String Maker Relationship Specialty Start Date End Date Romero Licea MD [address] [place], [place] [address] PCP - General Family Medicine 08/03/21 Shana Mike, COST ENGINEER [address] [place] [address] Nurse Practitioner Physical Medicine and Rehabilitation 11/15/22 Julius Canseco MD [address] [place] [address] Consulting Physician Physical Medicine and Rehabilitation 04/11/23 documented as of this encounter
--- OUTSIDE RECORDS SUMMARY | 2024-11-21 11:51 | XMS_ITS | Encounter Summary ---
Author Organization [facility] Address [address] [place] [address] Care Team Providers Care Deputy Clerk Of Superior Court Name Role Phone oRmero Licea MD Primary Care Provider Shanae Zarate MD Unavailable Princess Monroy HOSPICE DIRECTOR Unavailable [phone] Luh NashD Unavailable Cathy Tee RN Unavailable Romero Licea MD Unavailable Renee Mora DO Unavailable Renee Mora DO Primary Care Provider Reason for Visit * Reason Comments Med Refill Encounter Details Date Type Department Care Team (Late st Contact Info) Description 06/27/[address] [facility] [address] [place], [place] [address] Nirmal Huizar MD [address] [place] [address] Social History Tobacco Use Types Packs/Day Years Used Date Smoking Tobacco: Never Assessed Sex and Gender Information Value Date Recorded Sex Assigned at Not on file Legal Sex Male 1:57 AM [facility] Gender Identity Not on file Sexual Orientation Not on file documented as of this encounter Plan of Treatment Not on file documented as of this encounter Visit Diagnoses Not on filedocumented in this encounter Care Teams Deputy Clerk Of Superior Court Relationship Specialty Start Date End Date Romero Licea MD PCP - General Family Medicine 06/27/19 05/27/24 Romero Licea MD [address] [place] [address] PCP - Medicare Advantage - Attributed PCP 10/09/22 07/10/23 Renee Mora DO [address] [place] [address] PCP - Medicare Advantage - Attributed PCP 07/11/23 06/09/24 Renee Mora DO [address] [place] [address] PCP - General Family Medicine 06/04/24 Shanae Zarate MD [address] [place] [address] Consulting Physician Cardiology 10/13/20 Princess Monroy LCSW [address] [place] [address] Rn Medication Warehouse Attendant 10/31/20 05/27/24 Luh Nash, HunterD [address] [place] [address] Clinical Pharmacist Pharmacy 11/24/20 03/04/22 Cathy Tee, KAMERON [address] [place] [address] [place] [address] Manager Of Pharmacy ( Nurse) Care Management 08/17/21 documented as of this encounter
--- OUTSIDE RECORDS SUMMARY | 2024-11-21 11:51 | XMS_ITS | Encounter Summary ---
Author Organization [facility] Address [address] [place] [address] Care Team Providers Care Personnel Interviewer Name Role Phone Romero Lieca MD Primary Care Provi clifton Shana Mike NP Unavailable [phone] Julius Canseco MD Unavailable Encounter Details Date Type Department Care Team (Late st Contact Info) Description 02/04/[address] [facility] Surgery [address] [place] [address] Social History Tobacco Use Types [...] on filedocumented in this encounter Care Teams Personnel Interviewer Relationship Specialty Start Date End Date Romero Licea MD [address] [place], [place] [id number] PCP - General Family Medicine 08/03/21 Shana Mike, BOTTLER [address] [place] [address] Nurse Practitioner Physical Medicine and Rehabilitation 11/15/22 Julius Canseco MD [address] [place] [address] Consulting Physician Physical Medicine and Rehabilitation 04/11/23 documented as of this encounter
--- OUTSIDE RECORDS SUMMARY | 2024-11-21 11:52 | XMS_ITS | Clinical Summary ---
Author Organization [facility] Address [address] [place] [address] Care Team Providers Care Machine Staker Name Role Phone Romero Licea MD Primary Care Provi clifton Shana Mike NP Unavailable [phone] Julius Canseco MD Unavailable Allergies No known [...] (10/06/2021): Added automatically from request for surgery [id number] Lumbar radiculopathy 10/05/2021 Overview (10/05/2021): Added automatically from request for surgery [id number] Fever 09/23/2017 Asthma 09/21/2017 HIV (human immunodeficiency virus infection) COPD (chronic obstructive pulmonary disease) Hypertension 09/21/2017 Polycythemia 09/21/2017 Hyponatremia 09/21/2017 Dehydration 09/20/[address] scan, stomach 09/20/2017 Overview (09/23/2017): Added automatically from request for surgery [id number] Social History Tobacco Use Types Packs/Day Years [...] T Respiratory Rate 16 04/11/2023 5:00 PM [facility] Oxygen Saturation 99% 04/11/2023 5:00 PM MST [...] abdomen pelvis with contrast (09/21/2017 8:44 PM [facility]) Anatomical Region Laterality Modality Abdomen, Chest, Pelvis, Hip Comp uted Tomography 09/21/2017 8:42 PM [facility] Narrative 09/21/2017 8:[address] [facility] CT THORAX, ABDOMEN AND PELVIS WITH CONTRAST [...] * (ABNORMAL) Hemoglobin A1c (09/21/2017 4:47 AM [facility]) Hemoglobin A1C 8.5(H) <=5.7 % 09/21/2017 9:55 AM [facility] EAG 197.3 mg/dL 09/21/2017 9:55 AM [facility] Blood BLOOD SPECIMEN / Unknown Venipuncture / Unknown 09/21/2017 4:47 AM MST 09/21/2017 4:57 AM MST Narrative [facility] - 09/21/2017 9:55 AM [facility] The [place] Diabetes [employer] (ADA) guidelines for interpreting Hemoglobin A1C are as follows: Non-Diabetic patient: <5.7% Increased risk for future Diabetes: 5.7-6.4% ADA diagnostic criteria for Diabetes: >6.4% Values for patients with Diabetes: Result <7.0%: ??Meets ADA's recommendation goal for therapy. Result 7.0-8.0%: Exceeds ADA's recommended goal. Result >8.0%: ADA recommends reevaluation of therapy. Dre Perez MD LAB BLOOD ORDERAB LES [place] [id number], [facility] [phone] from Last 3 Months or Most Recently Relevant to Health Maintenance Advance Directives For more information, please contact: [phone] * Full Code (Latest Code Status on File) Date Activated Date Inactivated Comments 09/20/2017 8:25 PM 09/26/2017 4:14 PM Care Teams Machine Staker Relationship Specialty Start Date End Date Romero Licea MD [address] [place] [address] PCP - General Family Medicine 08/03/21 Shana Mike NP [address] [place], [place] [id number] Nurse Practitioner Physical Medicine and Rehabilitation 11/15/22 Julius Canseco MD [address] [place], [place] [address] Consulting Physician Physical Medicine and Rehabilitation 04/11/23
--- OUTSIDE RECORDS SUMMARY | 2024-11-21 11:52 | XMS_ITS | Encounter Summary ---
Author Organization [facility] Address [address] [place] [address] Care Team Providers Care Film Maker Name Role Phone Romero Licea MD Primary Care Provi clifton Shana Mike NP Unavailable [phone] Julius Canseco MD Unavailable [phone] Encounter Details Date Type Department Care Team (Late st Contact Info) Description 04/11/2023 Procedure Pass [facility] Surgery [address] [place] [address] Social History Tobacco Use Types [...] on filedocumented in this encounter Care Teams Film Maker Relationship Specialty Start Date End Date Romero Licea MD [address] [place], [place] [id number] PCP - General Family Medicine 08/03/21 Shana Mike, JAYNA [address] [place] [address] Nurse Practitioner Physical Medicine and Rehabilitation 11/15/22 Julius Canseco MD [address] [place] [address] Consulting Physician Physical Medicine and Rehabilitation 04/11/23 documented as of this encounter
--- OUTSIDE RECORDS SUMMARY | 2024-11-21 11:52 | XMS_ITS | Continuity of Care Document ---
Author Organization [facility] Address [address] [place] [address] Phone Care Team Providers Care Automatic Clipper Name Role Phone Unavailable Unavailable Unavailable Medications [...] Diagnoses Date Provider Providers Copied on Encounter [facility], [facility] [place], [id number], tel:[phone] Conversion Location [place] No Information No Information [facility], [facility] [place], [id number], tel:[phone] Conversion Location [facility] 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 [address] , [facility] [address], [place], [place], [id number], . tel:[phone] Family History Family Member Type Diagnosis Age At Onset No Information Payers Payer name Insurance type Covered green party ID Authoriza tion(s) No Information Social [...]
--- OUTSIDE RECORDS SUMMARY | 2024-11-21 11:52 | XMS_ITS | Encounter Summary ---
Author Organization [facility] Address [address] [place] [address] Care Team Providers Care Head Miller Name Role Phone Romero Licea MD Primary Care Provi clifton Shana Mike NP Unavailable [phone] Julius Canseco MD Unavailable Encounter Details Date Type Department Care Team (Late st Contact Info) Description 04/25/2023 Procedure Pass [facility] Surgery [address] [place] [address] Social History Tobacco Use Types [...] on filedocumented in this encounter Care Teams Head Miller Relationship Specialty Start Date End Date Romero Licea MD [address] [place], [place] [id number] PCP - General Family Medicine 08/03/21 Shana Mike, JAYNA [address] [place] [address] Nurse Practitioner Physical Medicine and Rehabilitation 11/15/22 Julius Canseco MD [address] [place] [address] Consulting Physician Physical Medicine and Rehabilitation 04/11/23 documented as of this encounter
== END 2024-11-21 11:41 | disposition home or self-care (01) ==
LOC: HO.HMCFM 10:47
PROVIDERS: PCP Physician Assistant; Visit Provider Physician Assistant
DX: E11.9 Type 2 diabetes mellitus without complications (principal); Z79.4 Long term (current) use of insulin; Z21 Asymptomatic human immunodeficiency virus [HIV] infection status; J44.9 Chronic obstructive pulmonary disease, unspecified; I10 Essential (primary) hypertension

== ENCOUNTER → 2024-11-21 10:46 | Outpatient (BNVA) | payer MEDICARE, SELFPAY | PROVIDERS: PCP Physician Assistant; Visit Provider Physician Assistant | DX: Z13.89 Encounter for screening for other disorder (principal) ==

== ENCOUNTER 2024-11-21 11:36 | Outpatient (REF) | payer MEDICARE, SELFPAY ==
--- OUTSIDE RECORDS SUMMARY | 2024-11-21 12:31 | XMS_ITS | Encounter Summary ---
Author Organization [facility] Address [address] [place] [address] Care Team Providers Care Instructor Trainer Canine Service Name Role Phone Romero Licea MD Primary Care Provider Shanae Zarate MD Unavailable Princess Monroy DESULFURIZER HAND Unavailable [phone] Luh NashD Unavailable Cathy Tee RN Unavailable Romero Licea MD Unavailable Renee Mora DO Unavailable Renee Mora DO Primary Care Provider Reason for Visit * Reason Comments Med Refill Encounter Details Date Type Department Care Team (Late st Contact Info) Description 05/04/2019 Refill [facility] [address] [place], [place] [address] Nirmal Huizar MD [address] [place] [address] Social History Tobacco Use Types Packs/Day Years Used Date Smoking Tobacco: Never Assessed Sex and Gender Information Value Date Recorded Sex Assigned at Not on file Legal Sex Male 1:57 AM [facility] Gender Identity Not on file Sexual Orientation Not on file documented as of this encounter Plan of Treatment Not on file documented as of this encounter Visit Diagnoses Not on filedocumented in this encounter Care Teams Instructor Trainer Canine Service Relationship Specialty Start Date End Date Romero Licea MD PCP - General Family Medicine 06/27/19 05/27/24 Romero Licea MD [address] [place] [address] PCP - Medicare Advantage - Attributed PCP 10/09/22 07/10/23 Renee Mora DO [address] [place] [address] PCP - Medicare Advantage - Attributed PCP 07/11/23 06/09/24 Renee Mora DO [address] [place] [address] PCP - General Family Medicine 06/04/24 Shanae Zarate MD [address] [place] [address] Consulting Physician Cardiology 10/13/20 Princess Monroy LCSW [address] [place] [address] Junior Accounting Clerk Balance Wheel Screw Hole Driller 10/31/20 05/27/24 Luh Nash, HunterD [address] [place] [address] Clinical Pharmacist Pharmacy 11/24/20 03/04/22 Cathy Tee, KAMERON [address] [place] [address] [facility] [place] [address] Physical Therapy Teacher ( Nurse) Care Management 08/17/21 documented as of this encounter
--- OUTSIDE RECORDS SUMMARY | 2024-11-21 12:31 | XMS_ITS | Clinical Summary ---
Author Organization [facility] Address [address] [place] [address] Care Team Providers Care Flatlock Sewing Machine Operator Name Role Phone Shanae Zarate MD Unavailable Renee Mora DO Primary Care Provider [phone] Allergies Active Allergy Reactions Criticality Noted Date [...] - submitted cover my meds 06/16/22 (Toussaint: [id number]) - approved 06/02/22-06/16/23 Request #[id number] ma Problem Noted Date Diagnosed Date Type 2 diabetes mellitus wit h diabetic peripheral angiopathy without gangrene, with long-term current use of insulin 07/01/2023 Type 2 diabetes mellitus with other specified co mplication 07/01/2023 Overview (07/01/2023): With mixed hyperlipidemia Assessment & Plan (07/01/2023 1:51 PM [facility]): Diabetes is controlled. A1c up because he was off trulicity for a while but been back on it. Stable. Continue present management. Age-related osteoporosis wit hout current pathological fracture 07/26/2022 Overview (07/26/2022): DXA 07/01 right hip -3.6, left hip -3.5 Assessment & Plan (07/26/2022 10:48 AM [facility]): Recent pelvic fracture. Counseling about [...] LOVETT Assessment & Plan (07/26/2022 10:55 AM [facility]): Patient requested refill of his [...] is for him to consult with a elementary reading specialist or even update his spine imaging. I will defer this to his pain management team. Bilateral carpal tunnel syndrome 07/26/2022 Overview (07/26/2022): EMG/NCV 07/01 Assessment & Plan (07/26/2022 10:56 AM [facility]): I will request his records [...] findings. Assessment & Plan (10/13/2020 11:44 AM [facility]): Condition is newly identified. 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 Abdominal aortic atherosclerosis 06/29/2019 Overview (06/29/2019): CT [...] to stent. Advised to follow-up with his terrazzo tile maker. Benign essential HTN 06/29/2019 Assessment & Plan [...] comorbidities Paroxysmal atrial fibrillation 06/29/2019 Overview (07/01/2023): [id number] Score 3 Assessment & Plan (07/01/2023 1:50 [...] (10/13/2020): Added automatically from request for surgery [id number] Resolved Problems Problem Noted Date Diagnosed Date [...] Type Department Care Team Description 09/05/[address] [place] [address] Renee Mora, DO Diabetic polyneuropathy associated with [...] Never 07/21/2022 How often do you attend [facility] or hinduism services? Patient declined 07/21/2022 Do you belong to any clubs o r organizations such as presybeterian groups, unions, fraternal or athletic groups, or [...] Date Recorded Depression Risk (PHQ2) Score 0 [facility]at ional [facility] - Occupational Stress Questionnaire Answer [...] place to sleep or slept in a skilled nursing (including now)? No 07/21/2022 Sex and Gender [...] X 1, STOOL Routine 10/15/2020 12:00 AM [facility] Screening for colorectal cancer HEPATITIS C VIRUS (HCV) ANTIBODY WITH REFLEX TO QUALITATIVE ISABEL Routine 07/26/2018 from Last 3 Months or Most Recently Relevant to Health Maintenance Results * Colonoscopy (08/03/2021) Colonoscopy colon polyps Historical Provider HEALTH MAINTENANCE Final Result * Occult blood x 1, stool (10/15/2020 12:00 AM [facility]) Pathologist [facility] Occult Bld Immunochem Negative Negative Branded Online Comment: Assay sensitivity is >95% when 50 ug Hb/g of stool is present. ?? Clinical sensitivity for colorectal cancer is 87%, ??and for large adenomas is 47%, based on an evaluation of 240 individuals in a premarket commercial data set used for FDA approval. Overall, clinical specificity is 97.7%. Stool (Per Rectum) 10/15/2020 10/22/2020 7:18 PM MST Narrative [facility] - 10/15/2020 12:00 AM [facility] Time/Date of collection taken from specimen. Copy being sent to: Results Only Account Cign[employer] Romero Lovett MD LAB BODY FLUIDS AND STOOLS OR DERABLES Edited Result - Final [facility] [address] [address] * Hepatitis C Virus (HCV) Antibody With [...] MD LAB BLOOD ORDERABLES Final Re sult [facility] [address] from Last 3 Months or Most Recently Relevant to Health Maintenance Care Teams Flatlock Sewing Machine Operator Relationship Specialty Start Date End Date Renee Mora DO [address] [place] [address] PCP - General Family Medicine 06/04/24 Shanae Zarate MD [address] [place] [address] Consulting Physician Cardiology 10/13/20
--- OUTSIDE RECORDS SUMMARY | 2024-11-21 12:31 | XMS_ITS | Encounter Summary ---
Author Organization [facility] Address [address] [place] [address] Care Team Providers Care Actionscript Developer Name Role Phone Romero Licea MD Primary Care Provi clifton Shana Mike NP Unavailable [phone] Julius Canseco MD Unavailable Encounter Details Date Type Department Care Team (Late st Contact Info) Description 01/21/2022 Procedure Pass [facility] Surgery [address] [place] [address] Social History Tobacco Use Types [...] on filedocumented in this encounter Care Teams Actionscript Developer Relationship Specialty Start Date End Date Romero Licea MD [address] [place], [place] [id number] PCP - General Family Medicine 08/03/21 Shana Mike, REGIONAL MARKETING DIRECTOR [address] [place] [address] Nurse Practitioner Physical Medicine and Rehabilitation 11/15/22 Julius Canseco MD [address] [place] [address] Consulting Physician Physical Medicine and Rehabilitation 04/11/23 documented as of this encounter
--- OUTSIDE RECORDS SUMMARY | 2024-11-21 12:31 | XMS_ITS | Encounter Summary ---
Author Organization [facility] Address [address] [place] [address] Care Team Providers Care Telephone Surveyor Name Role Phone Ubaldo Spring MD Primary Care Provider [phone] Romero Licea MD Primary Care Provi clifton Shana Mike NP Unavailable [phone] Julius Canseco MD Unavailable Encounter Details Date Type Department Care Team (Late st Contact Info) Description 09/23/2017 Procedure Pass [facility] Endoscopy [address] [place] [address] Social History Tobacco Use Types [...] on filedocumented in this encounter Care Teams Telephone Surveyor Relationship Specialty Start Date End Date Ubaldo Spring MD PCP - General Family Medicine 09/20/17 08/02/21 Romero Licea MD [address] [place] [address] PCP - General Family Medicine 08/03/21 Shana Mike NP [address] [place] [address] Nurse Practitioner Physical Medicine and Rehabilitation 11/15/22 Julius Canseco MD [address] [place] [address] Consulting Physician Physical Medicine and Rehabilitation 04/11/23 documented as of this encounter
--- OUTSIDE RECORDS SUMMARY | 2024-11-21 12:31 | XMS_ITS | Encounter Summary ---
Author Organization [facility] Address [address] [place] [address] Care Team Providers Care Veterans Services Specialist Name Role Phone Romero Licea MD Primary Care Provi clifton Shana Mike NP Unavailable [phone] Julius Canseco MD Unavailable [phone] Encounter Details Date Type Department Care Team (Late st Contact Info) Description 04/11/2023 Procedure Pass [facility] Surgery [address] [place] [place] [address] Social History Tobacco Use Types [...] on filedocumented in this encounter Care Teams Veterans Services Specialist Relationship Specialty Start Date End Date Romero Licea MD [address] [place], [place] [id number] PCP - General Family Medicine 08/03/21 Shana Mike, JAYNA [address] [place] [address] Nurse Practitioner Physical Medicine and Rehabilitation 11/15/22 Julius Canseco MD [address] [place] [address] Consulting Physician Physical Medicine and Rehabilitation 04/11/23 documented as of this encounter
--- OUTSIDE RECORDS SUMMARY | 2024-11-21 12:31 | XMS_ITS | Encounter Summary ---
Author Organization [facility] Address [address] [place] [address] Care Team Providers Care Elder Counselor Name Role Phone Romero Licea MD Primary Care Provi clifton Shana Mike NP Unavailable [phone] Julius Canseco MD Unavailable Encounter Details Date Type Department Care Team (Late st Contact Info) Description 04/25/2023 Procedure Pass [facility] Surgery [address] [place] [address] Social History Tobacco Use Types [...] on filedocumented in this encounter Care Teams Elder Counselor Relationship Specialty Start Date End Date Romero Licea MD [address] [place], [place] [id number] PCP - General Family Medicine 08/03/21 Shana Mike, JAYNA [address] [place] [address] Nurse Practitioner Physical Medicine and Rehabilitation 11/15/22 Julius Canseco MD [address] [place] [address] Consulting Physician Physical Medicine and Rehabilitation 04/11/23 documented as of this encounter
--- OUTSIDE RECORDS SUMMARY | 2024-11-21 12:31 | XMS_ITS | Encounter Summary ---
Author Organization [facility] Address [address] [place] [address] Care Team Providers Care Weeder Thinner Name Role Phone Ubaldo Spring MD Primary Care Provider + [phone] Romero Licea MD Primary Care Provi clifton Shana Mike NP Unavailable + [phone] Julius Canseco MD Unavailable [phone] Encounter Details Date Type Department Care Team (Late st Contact Info) Description 09/24/2017 Procedure Pass [facility] Endoscopy [address] [place] [address] Social History Tobacco Use Types [...] on filedocumented in this encounter Care Teams Weeder Thinner Relationship Specialty Start Date End Date Ubaldo Spring MD PCP - General Family Medicine 09/20/17 08/02/21 Romero Licea MD [address] [place] [address] PCP - General Family Medicine 08/03/21 Shana Mike NP [address] [place] [address] Nurse Practitioner Physical Medicine and Rehabilitation 11/15/22 Julius Canseco MD [address] [place] [address] Consulting Physician Physical Medicine and Rehabilitation 04/11/23 documented as of this encounter
--- OUTSIDE RECORDS SUMMARY | 2024-11-21 12:31 | XMS_ITS | Encounter Summary ---
Author Organization [facility] Address [address] [place] [address] Care Team Providers Care Ditching Machine Operator Name Role Phone Romero Licea MD Primary Care Provi clifton Shana Mike NP Unavailable [phone] Julius Canseco MD Unavailable Encounter Details Date Type Department Care Team (Late st Contact Info) Description 08/03/2021 Procedure Pass [facility] Endoscopy [address] [place] [address] Social History Tobacco Use Types [...] on filedocumented in this encounter Care Teams Ditching Machine Operator Relationship Specialty Start Date End Date Romero Licea MD [address] [place], [place] [id number] PCP - General Family Medicine 08/03/21 Shana Mike, WOOD TREATING INSPECTOR [address] [place], [place] [id number] Nurse Practitioner Physical Medicine and Rehabilitation 11/15/22 Julius Canseco MD [address] [place], [place] [address] Consulting Physician Physical Medicine and Rehabilitation 04/11/23 documented as of this encounter
--- OUTSIDE RECORDS SUMMARY | 2024-11-21 12:31 | XMS_ITS | Continuity of Care Document ---
Author Organization [facility] Address [address] [place] [address] Phone Care Team Providers Care Clinical Pharmacy Specialist Name Role Phone Unavailable Unavailable Unavailable Medications [...] Diagnoses Date Provider Providers Copied on Encounter [facility] [place], [id number], tel:[phone] Conversion Location [place] No Information No Information [facility] [place] [place], [id number], tel:[phone] Conversion Location [facility] 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 [address] , [facility] [address], [place], [place], [id number], . tel:[phone] Family History Family Member Type Diagnosis Age [...]
--- OUTSIDE RECORDS SUMMARY | 2024-11-21 12:31 | XMS_ITS | Encounter Summary ---
Author Organization [facility] Address [address] [place] [address] Care Team Providers Care Director Of Dementia Operations Name Role Phone Shanae Zarate MD Unavailable Renee Mora DO Primary Care Provider [phone] Reason for Visit * Reason Comments Med Refill Encounter Details Date Type Department Care Team (Late st Contact Info) Description 07/15/2024 Refill [facility] [address] [facility] [address] [place], [place] [id number] Gay Rosario MD [address] [facility] [address] [place], [place] [id number] Diabetic polyneuropathy associated with type 2 diabetes mellitus ([facility]/HCC) Social History Tobacco Use Types Packs/Day [...] often do you attend chur ch or yarsani services? Patient declined 07/21/2022 Do you belong to any clubs o r organizations such as lutheran groups, unions, fraternal or athletic groups, or [...] Date Recorded Depression Risk (PHQ2) Score 0 [facility] - Occupational Stress Questionnaire Answer Date Recorded [...] place to sleep or slept in a custodial (including now)? No 07/21/2022 Sex and Gender Information Value Date Recorded Sex Assigned at Not on file Legal Sex Male 1:57 AM MST Gender Identity Not on file Sexual Orientation Not on file documented as of this encounter Miscellaneous Notes * Telephone Encounter - Tana Ndiaye CPHT - 07/18/2024 5:56 AM MST RFA TEAM No staff refills--now living in [place]--see Metformin request--see Apr 2024 refill request documented in this encounter Plan of Treatment Not on file documented as of this encounter Visit Diagnoses Diagnosis Diabetic polyneuropathy associated with type 2 diabetes mellitus (CMS/HCC) documented in this encounter Care Teams Director Of Dementia Operations Relationship Specialty Start Date End Date Renee Mora DO [address] [place] [address] PCP - General Family Medicine 06/04/24 Shanae Zarate MD [address] [place] [address] Consulting Physician Cardiology 10/13/20 documented as of this encounter
--- OUTSIDE RECORDS SUMMARY | 2024-11-21 12:31 | XMS_ITS | Continuity of Care Document ---
Author Organization [facility] Address [address] [place] [address] Phone Care Team Providers Care Orthotic Aide Name Role Phone Shanae Zarate MD Unavailable Unavailable Procedures Procedure Date Ecg Routine Ecg W/Least 12 Lds W/I&r November Office/outpatient visit est Ecg Routine Ecg W/Least 12 Lds W/I&r Apr Office/outpatient visit est Advance Directives Directive Yes / No Effective Date File Name No Information Encounters Encounter Description Practice Location Reason(s) For Visit Diagnoses Date Provider Providers Copied on Encounter Office/outpa tient visit est [facility], [address], [place], [place], [id number], tel:[phone] [facility] Office Paroxysmal atrial fibrillationAt herosclerotic heart disease of [place] coronary artery without angina pectorisPeriph eral vascular disease, unspecifiedTyp e 2 diabetes mellitus without complicationsH yperlipidemia, unspecifiedHum an immunodeficien cy virus [HIV] disease 2 Elliot Jolly. [address], [place], [place], [id number] , [place]. tel:[phone] Referring Provider: Shanae Smith, [address], [place], [address] . tel:[phone] Office/outpa tient visit est [facility], [address], [place], [place], [id number], [place] tel:[phone] [facility] Office Atheroscleroti c heart disease of [place] coronary artery without angina pectorisPeriph eral vascular disease, unspecifiedPol yp of colonType 2 diabetes mellitus without complicationsH yperlipidemia, unspecifiedHum an immunodeficien cy virus [HIV] diseaseEssenti al (primary) hypertension 1 Elliot Jolly. [address], [address], [place], [place], [id number] , [place]. tel:[phone] Referring Provider: Shanae Smith, [address], [place], [address] . tel:[phone] Family History Family Member Type Diagnosis Age At Onset No Information Payers Payer name Insurance type Covered libertarian ID Authoriza ti(s) [facility] [id number] Social History Type Description Quantity Date Captured Comments Sex Male Smoking Status No Information Gender Identity Male Chief Complaint And Reason For Visit No [...]
--- OUTSIDE RECORDS SUMMARY | 2024-11-21 12:31 | XMS_ITS | Encounter Summary ---
Author Organization [facility] Address [address] [place] [address] Care Team Providers Care Engraving Press Operator Name Role Phone Romero Licea MD Primary Care Provi clifton Shana Mike NP Unavailable [phone] Julius Canseco MD Unavailable Encounter Details Date Type Department Care Team (Late st Contact Info) Description 10/22/2021 Procedure Pass [facility] Surgery [address] [place] [address] Social History Tobacco Use Types [...] on filedocumented in this encounter Care Teams Engraving Press Operator Relationship Specialty Start Date End Date Romero Licea MD [address] [place], [place] [id number] PCP - General Family Medicine 08/03/21 Shana Mike, JAYNA [address] [place] [address] Nurse Practitioner Physical Medicine and Rehabilitation 11/15/22 Julius Canseco MD [address] [place] [address] Consulting Physician Physical Medicine and Rehabilitation 04/11/23 documented as of this encounter
--- OUTSIDE RECORDS SUMMARY | 2024-11-21 12:31 | XMS_ITS | Encounter Summary ---
Author Organization [facility] Address [address] [place] [address] Care Team Providers Care Paper Twister Tender Name Role Phone Romero Licea MD Primary Care Provi clifton Shana Mike NP Unavailable [phone] Julius Canseco MD Unavailable Encounter Details Date Type Department Care Team (Late st Contact Info) Description 10/08/2021 Procedure Pass [facility] Surgery [address] [place] [address] Social History Tobacco Use Types [...] on filedocumented in this encounter Care Teams Paper Twister Tender Relationship Specialty Start Date End Date Romero Licea MD [address] [place], [place] [id number] PCP - General Family Medicine 08/03/21 Shana Mike, POT ROOM TAPPER [address] [place] [address] Nurse Practitioner Physical Medicine and Rehabilitation 11/15/22 Julius Canseco MD [address] [place] [address] Consulting Physician Physical Medicine and Rehabilitation 04/11/23 documented as of this encounter
--- OUTSIDE RECORDS SUMMARY | 2024-11-21 12:31 | XMS_ITS | Encounter Summary ---
Author Organization [facility] Address [address] [place] [address] Care Team Providers Care Mounter Clarinets Name Role Phone Shanae Zarate MD Unavailable Renee Mora DO Primary Care Provider [phone] Reason for Visit * Reason Comments Med Refill Encounter Details Date Type Department Care Team (Late st Contact Info) Description 06/23/2024 Refill [facility] [address] [place] [address] [place] [address] [place] [address] [address] [place] [address] Diabetic polyneuropathy associated with type 2 diabetes mellitus ([facility]/HCC) Social History Tobacco Use Types Packs/Day Years [...] often do you attend chur ch or temple services? Patient declined 07/21/2022 Do you belong to any clubs o r organizations such as anglican groups, unions, fraternal or athletic groups, or [...] Date Recorded Depression Risk (PHQ2) Score 0 [facility] - Occupational Stress Questionnaire Answer Date Recorded [...] place to sleep or slept in a retirement (including now)? No 07/21/2022 Sex and Gender [...] (CMS/HCC) documented in this encounter Care Teams Mounter Clarinets Relationship Specialty Start Date End Date Renee Mora DO [address] [place] [address] PCP - General Family Medicine 06/04/24 Shanae Zarate MD [address] [place] [address] Consulting Physician Cardiology 10/13/20 documented as of this encounter
--- OUTSIDE RECORDS SUMMARY | 2024-11-21 12:31 | XMS_ITS | Clinical Summary ---
[facility] Organization [facility] Address [address] [place] [address] Care Team Providers Care Mason Foreman/Superintendant Name Role Phone Romero Licea MD Primary Care Provi clifton Shana Mike NP Unavailable [phone] Julius Canseco MD Unavailable Allergies No known [...] (10/06/2021): Added automatically from request for surgery [id number] Lumbar radiculopathy 10/05/2021 Overview (10/05/2021): Added automatically from request for surgery [id number] Fever 09/23/2017 Asthma 09/21/2017 HIV (human immunodeficiency virus infection) COPD (chronic obstructive pulmonary disease) Hypertension 09/21/2017 Polycythemia 09/21/2017 Hyponatremia 09/21/2017 Dehydration 09/20/[address] scan, stomach 09/20/2017 Overview (09/23/2017): Added automatically from request for surgery [id number] Social History Tobacco Use Types Packs/Day Years [...] T Respiratory Rate 16 04/11/2023 5:00 PM [facility] Oxygen Saturation 99% 04/11/2023 5:00 PM [...] abdomen pelvis with contrast (09/21/2017 8:44 PM [facility]) Anatomical Region Laterality Modality Abdomen, Chest, Pelvis, Hip Comp uted Tomography 09/21/2017 8:42 PM [facility] Narrative 09/21/2017 8:[address] [facility] [address] THORAX, ABDOMEN AND PELVIS WITH [...] * (ABNORMAL) Hemoglobin A1c (09/21/2017 4:47 AM [facility]) Hemoglobin A1C 8.5(H) <=5.7 % 09/21/2017 9:55 AM [facility] EAG 197.3 mg/dL 09/21/2017 9:55 AM [facility] Blood BLOOD SPECIMEN / Unknown Venipuncture / Unknown 09/21/2017 4:47 AM MST 09/21/2017 4:57 AM MST Narrative [facility] - 09/21/2017 9:55 AM [facility] The [place] Diabetes [employer] (ADA) guidelines for interpreting Hemoglobin A1C are as follows: Non-Diabetic patient: <5.7% Increased risk for future Diabetes: 5.7-6.4% ADA diagnostic criteria for Diabetes: >6.4% Values for patients with Diabetes: Result <7.0%: ??Meets ADA's recommendation goal for therapy. Result 7.0-8.0%: Exceeds ADA's recommended goal. Result >8.0%: ADA recommends reevaluation of therapy. Dre Perez MD LAB BLOOD ORDERAB LES [place] [id number], [facility] [phone] from Last 3 Months or Most Recently Relevant to Health Maintenance Advance Directives For more information, please contact: [phone] * Full Code (Latest Code Status on File) Date Activated Date Inactivated Comments 09/20/2017 8:25 PM 09/26/2017 4:14 PM Care Teams Mason Foreman/Superintendant Relationship Specialty Start Date End Date Romero Licea MD [address] [place] [address] PCP - General Family Medicine 08/03/21 Shana Mike NP [address] [place], [place] [id number] Nurse Practitioner Physical Medicine and Rehabilitation 11/15/22 Julius Canseco MD [address] [place], [place] [id number] Consulting Physician Physical Medicine and Rehabilitation 04/11/23
--- OUTSIDE RECORDS SUMMARY | 2024-11-21 12:31 | XMS_ITS | Encounter Summary ---
Author Organization [facility] Address [address] [place] [address] Care Team Providers Care Broomcorn Press Feeder Name Role Phone Romero Licea MD Primary Care Provider Shanae Zarate MD Unavailable Princess Monroy SERVICE DELIVERY MANAGEMENT CONSULTANT Unavailable [phone] Luh NashD Unavailable Cathy Tee RN Unavailable Romero Licea MD Unavailable Renee Mora DO Unavailable Renee Mora DO Primary Care Provider Reason for Visit * Reason Comments Med Refill Encounter Details Date Type Department Care Team (Late st Contact Info) Description 05/25/2019 Refill [facility] [address] [place], [place] [address] Nirmal Huizar MD [address] [place] [address] Social History Tobacco Use Types Packs/Day Years Used Date Smoking Tobacco: Never Assessed Sex and Gender Information Value Date Recorded Sex Assigned at Not on file Legal Sex Male 1:57 AM [facility] Gender Identity Not on file Sexual Orientation Not on file documented as of this encounter Plan of Treatment Not on file documented as of this encounter Visit Diagnoses Not on filedocumented in this encounter Care Teams Broomcorn Press Feeder Relationship Specialty Start Date End Date Romero Licea MD PCP - General Family Medicine 06/27/19 05/27/24 Romero Licea MD [address] [place] [address] PCP - Medicare Advantage - Attributed PCP 10/09/22 07/10/23 Renee Mora DO [address] [place] [address] PCP - Medicare Advantage - Attributed PCP 07/11/23 06/09/24 Renee Mora DO [address] [place] [address] PCP - General Family Medicine 06/04/24 Shanae Zarate MD [address] [place] [address] Consulting Physician Cardiology 10/13/20 Princess Monroy LCSW [address] [place] [address] Coding Specialist Home Health Major Assembly Inspector 10/31/20 05/27/24 Luh Nash, HunterD [address] [place] [address] Clinical Pharmacist Pharmacy 11/24/20 03/04/22 Cathy Tee, KAMERON [address] [place] [address] [facility] [place] [address] Drafter Apprentice ( Nurse) Care Management 08/17/21 documented as of this encounter
--- OUTSIDE RECORDS SUMMARY | 2024-11-21 12:31 | XMS_ITS | Encounter Summary ---
Author Organization [facility] Address [address] [place] [address] Care Team Providers Care Invoicing Specialist Name Role Phone Romero Licea MD Primary Care Provi clifton Shana Mike NP Unavailable [phone] Julius Canseco MD Unavailable [phone] Encounter Details Date Type Department Care Team (Late st Contact Info) Description 02/04/2022 Procedure Pass [facility] Surgery [address] [place] [place] [address] Social History Tobacco Use Types [...] on filedocumented in this encounter Care Teams Invoicing Specialist Relationship Specialty Start Date End Date Romero Licea MD [address] [place], [place] [id number] PCP - General Family Medicine 08/03/21 Shana Mike, YARD SWITCH OPERATOR [address] [place] [address] Nurse Practitioner Physical Medicine and Rehabilitation 11/15/22 Julius Canseco MD [address] [place] [address] Consulting Physician Physical Medicine and Rehabilitation 04/11/23 documented as of this encounter
--- OUTSIDE RECORDS SUMMARY | 2024-11-21 12:31 | XMS_ITS | Encounter Summary ---
Author Organization [facility] Address [address] [place] [address] Care Team Providers Care Staff Internist Office Based Only Name Role Phone Romero Licea MD Primary Care Provider Shanae Zarate MD Unavailable Princess Monroy MEDICAL CLAIMS ASSISTANT Unavailable [phone] Luh NashD Unavailable Cathy Tee RN Unavailable Romero Licea MD Unavailable Renee Mora DO Unavailable Renee Mora DO Primary Care Provider Reason for Visit * Reason Comments Med Refill Encounter Details Date Type Department Care Team (Late st Contact Info) Description 06/27/2019 Refill [facility] [address] [place], [place] [address] Nirmal Huizar MD [address] [place] [address] Social History Tobacco Use Types Packs/Day Years Used Date Smoking Tobacco: Never Assessed Sex and Gender Information Value Date Recorded Sex Assigned at Not on file Legal Sex Male 1:57 AM [facility] Gender Identity Not on file Sexual Orientation Not on file documented as of this encounter Plan of Treatment Not on file documented as of this encounter Visit Diagnoses Not on filedocumented in this encounter Care Teams Staff Internist Office Based Only Relationship Specialty Start Date End Date Romero Licea MD PCP - General Family Medicine 06/27/19 05/27/24 Romero Licea MD [address] [place] [address] PCP - Medicare Advantage - Attributed PCP 10/09/22 07/10/23 Renee Mora DO [address] [place] [address] PCP - Medicare Advantage - Attributed PCP 07/11/23 06/09/24 Renee Mora DO [address] [place] [address] PCP - General Family Medicine 06/04/24 Shanae Zarate MD [address] [place] [address] Consulting Physician Cardiology 10/13/20 Princess Monroy LCSW [address] [place] [address] Lock Technician [employer] Mining Machine Company Miner 10/31/20 05/27/24 Luh Nash, HunterD [address] [place] [address] Clinical Pharmacist Pharmacy 11/24/20 03/04/22 Cathy Tee, KAMERON [address] [place] [address] [facility] [address] Jigger Operator ( Nurse) Care Management 08/17/21 documented as of this encounter
[2024-11-21 14:57] LABS: MANUAL DIFF FLAG NO
[2024-11-21 15:00] LABS: Basophils Percent Auto 0.7 % (0-2); Eosinophils Absolute Auto 0.1 X10*3/uL (0.0-0.4); Eosinophils Percent Auto 1.9 % (0-4); Hematocrit 40.1 % (42.0-52.0); Hemoglobin 12.7 g/dl (14.0-18.0); Imm Gran Abs Auto 0.02 X10*3/uL (0.00-0.03); Imm Gran Pct Auto 0.3 % (0.0-0.4); Lymphocytes Absolute Auto 1.7 X10*3/uL (1.2-4.9); Lymphocytes Percent Auto 28.7 % (20-40); Mean Corpuscular HGB Conc 31.7 g/dl (31.0-36.0); Mean Corpuscular Hemoglobin 27.9 pg (27.0-33.0); Mean Corpuscular Volume 87.9 fL (80.0-98.0); Mean Platelet Volume 10.3 fL (9.4-12.4); Monocytes Absolute Auto 0.4 X10*3/uL (0.1-1.2); Monocytes Percent Auto 6.6 % (2-11); Neutrophils Absolute Auto 3.6 x10*3/uL (2.0-8.3); Neutrophils Percent Auto 61.8 % (45-73); Platelet Count 228 X10*3/uL (160-400); Red Blood Count 4.56 X10*6/uL (4.60-5.80); White Blood Count 5.8 X10*3/uL (4.8-10.8)
[2024-11-21 15:31] LABS: Iron 37 mcg/dL (45-160); Percent Iron Saturation 14 % (15-50); Total Iron Binding Capacity 269 mcg/dL (228-428); Unsaturated Iron Binding 232 ug/dL
[2024-11-21 15:49] LABS: Ferritin 44 ng/mL (20-250)
[2024-11-21 15:50] LABS: Folate 5.7 ng/mL (> or = 4.0); Vitamin B12 524 pg/mL (200-900)
== END 2024-11-21 11:37 | disposition home or self-care (01) ==
LOC: HO.WFDLDS 11:36
PROVIDERS: Visit Provider Physician Assistant
DX: E11.9 Type 2 diabetes mellitus without complications (principal); Z21 Asymptomatic human immunodeficiency virus [HIV] infection status; I10 Essential (primary) hypertension; J44.9 Chronic obstructive pulmonary disease, unspecified; Z79.4 Long term (current) use of insulin; Z79.84 Long term (current) use of oral hypoglycemic drugs; Z79.899 Other long term (current) drug therapy; D64.9 Anemia, unspecified
CPT/HCPCS: 36415; 82607; 82728; 82746; 83540; 85025; 99212

== ENCOUNTER 2024-11-29 10:41 | Outpatient (REF) | payer MEDICARE, SELFPAY ==
--- NOTE | 2024-11-29 10:45 | PFT_ITS ---
Flows: FEV1: 116 % of predicted at 3.61 L FVC: 149 % of predicted at 6.04 L FEV1/FVC: 60 % Bronchodilator response: Present Volumes: Total lung capacity: 129 % of predicted at 8.63 L Residual volume: 137 % of predicted at 3.13 L Slow vital capacity: 124 % of predicted at 5.50 L Expiratory reserve volume: 147 % of predicted at 1.67 L Diffusion capacity: Normal Impression: Mild obstructive ventilatory defect with positive bronchodilator response. Increased total lung capacity suggests hyperinflation. Increased residual volume suggests air trapping. MTDD
--- OUTSIDE RECORDS SUMMARY | 2024-11-29 11:20 | XMS_ITS | Encounter Summary ---
Author Organization [facility] Address [address] [place] [address] Care Team Providers Care Taxation Agent Name Role Phone Shanae Zarate MD Unavailable Renee Mora DO Primary Care Provider [phone] Reason for Visit * Reason Comments Med Refill Encounter Details Date Type Department Care Team (Late st Contact Info) Description 07/15/2024 Refill [facility] [address] [facility] [address] [place], [place] [id number] Gay Rosario MD [address] [facility] [address] [place], [place] [id number] Diabetic polyneuropathy associated with type 2 diabetes mellitus ([facility]/HCC) Social History Tobacco Use Types Packs/Day [...] often do you attend chur ch or episcopalian services? Patient declined 07/21/2022 Do you belong [...] Date Recorded Depression Risk (PHQ2) Score 0 [facility] - Occupational Stress Questionnaire Answer [...] place to sleep or slept in a chcf (including now)? No 07/21/2022 Sex and Gender Information Value Date Recorded Sex Assigned at Not on file Legal Sex Male 1:57 AM [facility] Gender Identity Not on file Sexual Orientation Not on file documented as of this encounter Miscellaneous Notes * Telephone Encounter - Tana Ndiaye CPHT - 07/18/2024 5:56 AM MST RFA TEAM No staff refills--now living in [place]--see Metformin request--see Apr 2024 refill request documented in this encounter Plan of Treatment Not on file documented as of this encounter Visit Diagnoses Diagnosis Diabetic polyneuropathy associated with type 2 diabetes mellitus (CMS/HCC) documented in this encounter Care Teams Taxation Agent Relationship Specialty Start Date End Date Renee Mora DO [address] [place] [address] PCP - General Family Medicine 06/04/24 Shanae Zarate MD [address] [place] [address] [place] [address] Consulting Physician Cardiology 10/13/20 documented as of this encounter
--- OUTSIDE RECORDS SUMMARY | 2024-11-29 11:20 | XMS_ITS | Encounter Summary ---
Author Organization [facility] Address [address] [place] [address] Care Team Providers Care Artist Representative Name Role Phone Romero Licea MD Primary Care Provi clifton Shana Mike MINING TEACHER Unavailable [phone] Julius Canseco MD Unavailable [phone] Encounter Details Date Type Department Care Team (Late st Contact Info) Description 08/03/2021 Procedure Pass [facility] [address] [place] [address] Social History Tobacco Use Types Packs/Day Years Used Date Smoking Tobacco: Former Cigarettes 2 10 Smokeless Tobacco: Never Alcohol Use Standard Drinks/Week Comments No 0 (1 standard drink = 0.6 oz pur e alcohol) Sex and Gender Information Value Date Recorded Sex Assigned at Not on file Legal Sex Male 10:38 AM [facility] Gender Identity Not on file [...] on filedocumented in this encounter Care Teams Artist Representative Relationship Specialty Start Date End Date Romero Licea MD [address] [place], [place] [id number] PCP - General Family Medicine 08/03/21 Shana Mike NP [address] [place] [address] Nurse Practitioner Physical Medicine and Rehabilitation 11/15/22 Julius Canseco MD [address] [place], [place] [address] Consulting Physician Physical Medicine and Rehabilitation 04/11/23 documented as of this encounter
--- OUTSIDE RECORDS SUMMARY | 2024-11-29 11:20 | XMS_ITS | Encounter Summary ---
Author Organization [facility] Address [address] [place] [address] Care Team Providers Care Telephone Sex Worker Name Role Phone Romero Licea MD Primary Care Provider Shanae Zarate MD Unavailable Princess Monroy SENIOR TECHNICAL ARCHITECT Unavailable Luh NashD Unavailable Cathy Tee RN Unavailable Romero Licea MD Unavailable Renee Mora DO Unavailable Renee Mora DO Primary Care Provider Reason for Visit * Reason Comments Med Refill Encounter Details Date Type Department Care Team (Late st Contact Info) Description 05/25/2019 Refill [facility] [address] [place], [place] [address] Nirmal Huizar MD [address] [place] [address] Social History Tobacco Use Types Packs/Day Years [...] filedocumented in this encounter Care Teams Telephone Sex Worker Relationship Specialty Start Date End Date Romero Licea MD PCP - General Family Medicine 06/27/19 05/27/24 Romero Licea MD [address] [place] [address] PCP - Medicare Advantage - Attributed PCP 10/09/22 07/10/23 Renee Mora DO [address] [place] [address] PCP - Medicare Advantage - Attributed PCP 07/11/23 06/09/24 Renee Mora DO [address] [place] [address] PCP - General Family Medicine 06/04/24 Shanae Zarate MD [address] [facility] [place] [address] Consulting Physician Cardiology 10/13/20 Princess Monroy LCSW [address] [place] [address] Hotel Reservationist Template Worker 10/31/20 05/27/24 Luh Nash, HunterD [address] [place] [address] Clinical Pharmacist Pharmacy 11/24/20 03/04/22 Cathy Tee, KAMERON [address] [place] [address] [place] [address] Ore Charger ( Nurse) Care Management 08/17/21 documented as of this encounter
--- OUTSIDE RECORDS SUMMARY | 2024-11-29 11:20 | XMS_ITS | Encounter Summary ---
Author Organization [facility] Address [address] [place] [address] Care Team Providers Care Processing Operator Name Role Phone Romero Licea MD Primary Care Provi clifton Shana Mike NP Unavailable [phone] Julius Canseco MD Unavailable Encounter Details Date Type Department Care Team (Late st Contact Info) Description 10/08/2021 Procedure Pass [facility] Surgery [address] [place] [address] Social History Tobacco Use Types Packs/Day Years Used Date Smoking Tobacco: Former Cigarettes 2 10 Smokeless Tobacco: Never Alcohol Use Standard Drinks/Week Comments No 0 (1 standard drink = 0.6 oz pur e alcohol) Sex and Gender Information Value Date Recorded Sex Assigned at Not on file Legal Sex Male 10:38 AM [facility] Gender Identity Not on file [...] on filedocumented in this encounter Care Teams Processing Operator Relationship Specialty Start Date End Date Romero Licea MD [address] [place], [place] [id number] PCP - General Family Medicine 08/03/21 Shana Mike NP [address] [place] [address] Nurse Practitioner Physical Medicine and Rehabilitation 11/15/22 Julius Canseco MD [address] [place] [address] Consulting Physician Physical Medicine and Rehabilitation 04/11/23 documented as of this encounter
--- OUTSIDE RECORDS SUMMARY | 2024-11-29 11:20 | XMS_ITS | Encounter Summary ---
Author Organization [facility] Address [address] [place] [address] Care Team Providers Care Still Cleaner Tube Name Role Phone Ubaldo Spring MD Primary Care Provider [phone] Romero Licea MD Primary Care Provi clifton Shana Mike NP Unavailable [phone] Julius Canseco MD Unavailable Encounter Details Date Type Department Care Team (Late st Contact Info) Description 09/23/2017 Procedure Pass [facility] [address] [place] [address] Social History Tobacco Use Types Packs/Day Years Used Date Smoking Tobacco: Former Cigarettes 2 10 2 - 2010 Smokeless Tobacco: Never Alcohol Use Standard Drinks/Week Comments No 0 (1 standard drink = 0.6 oz pur e alcohol) Sex and Gender Information Value Date Recorded Sex Assigned at Not on file Legal Sex Male 10:38 AM [facility] Gender Identity Not on file Sexual Orientation Not on file documented as of this encounter Plan of Treatment Not on file documented as of this encounter Visit Diagnoses Not on filedocumented in this encounter Care Teams Still Cleaner Tube Relationship Specialty Start Date End Date Ubaldo Spring MD PCP - General Family Medicine 09/20/17 08/02/21 Romero Licea MD [address] [place] [address] PCP - General Family Medicine 08/03/21 Shana Mike NP [address] [place] [address] Nurse Practitioner Physical Medicine and Rehabilitation 11/15/22 Julius Canseco MD [address] [place] [address] Consulting Physician Physical Medicine and Rehabilitation 04/11/23 documented as of this encounter
--- OUTSIDE RECORDS SUMMARY | 2024-11-29 11:20 | XMS_ITS | Clinical Summary ---
Author Organization [facility] Address [address] [place] [address] Care Team Providers Care Consultant Internship Name Role Phone Shanae Zarate MD Unavailable Renee Mora DO Primary Care Provider [phone] Allergies Active Allergy Reactions Criticality Noted Date [...] - submitted cover my meds 06/16/22 ([employer]: [id number]) - approved 06/02/22-06/16/23 Request #[id number] wv Problem Noted Date Diagnosed Date Type 2 diabetes mellitus wit h diabetic peripheral angiopathy without gangrene, with long-term current use of insulin 07/01/2023 Type 2 diabetes mellitus with other specified co mplication 07/01/2023 Overview (07/01/2023): With mixed hyperlipidemia Assessment & Plan (07/01/2023 1:51 PM [facility]): Diabetes is controlled. A1c up because he was off trulicity for a while but been back on it. Stable. Continue present management. Age-related osteoporosis wit hout current pathological fracture 07/26/2022 Overview (07/26/2022): DXA 07/01 right hip -3.6, left hip -3.5 Assessment & Plan (07/26/2022 10:48 AM [facility]): Recent pelvic fracture. Counseling about osteopenia/osteoporosis. [...] LOVETT Assessment & Plan (07/26/2022 10:55 AM [facility]): Patient requested refill of his pain [...] is for him to consult with a recreation program specialist or even update his spine imaging. I will defer this to his pain management team. Bilateral carpal tunnel syndrome 07/26/2022 Overview (07/26/2022): EMG/NCV 07/01 Assessment & Plan (07/26/2022 10:56 AM [facility]): I will request his records from [...] findings. Assessment & Plan (10/13/2020 11:44 AM [facility]): Condition is newly identified. 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 Abdominal aortic atherosclerosis 06/29/2019 Overview (06/29/2019): CT [...] to stent. Advised to follow-up with his income tax investigator. Benign essential HTN 06/29/2019 Assessment & Plan [...] comorbidities Paroxysmal atrial fibrillation 06/29/2019 Overview (07/01/2023): [id number] Score 3 Assessment & Plan (07/01/2023 1:50 [...] (10/13/2020): Added automatically from request for surgery [id number] Resolved Problems Problem Noted Date Diagnosed Date [...] Type Department Care Team Description 09/05/[address] [place] [address] Renee Mora, DO Diabetic polyneuropathy associated with [...] Never 07/21/2022 How often do you attend [facility] or rastafarian services? Patient declined 07/21/2022 Do you belong [...] Recorded Depression Risk (PHQ2) Score 0 [facility] - Occupational Stress Questionnaire Answer [...] place to sleep or slept in a residential (including now)? No 07/21/2022 Sex and Gender [...] X 1, STOOL Routine 10/15/2020 12:00 AM [facility] Screening for colorectal cancer HEPATITIS C VIRUS (HCV) ANTIBODY WITH REFLEX TO QUALITATIVE ISABEL Routine 07/26/2018 from Last 3 Months or Most Recently Relevant to Health Maintenance Results * Colonoscopy (08/03/2021) Colonoscopy colon polyps Historical Provider HEALTH MAINTENANCE Final Result * Occult blood x 1, stool (10/15/2020 12:00 AM [facility]) Pathologist [facility] Occult Bld Immunochem Negative Negative [employer] Comment: Assay sensitivity is >95% when 50 ug Hb/g of stool is present. ?? Clinical sensitivity for colorectal cancer is 87%, ??and for large adenomas is 47%, based on an evaluation of 240 individuals in a premarket commercial data set used for FDA approval. Overall, clinical specificity is 97.7%. Stool (Per Rectum) 10/15/2020 10/22/2020 7:18 PM [facility] Narrative [facility] - 10/15/2020 12:00 AM [facility] Time/Date of collection taken from specimen. Copy being sent to: Results Only Account [employer] Romero Lovett MD LAB BODY FLUIDS AND STOOLS OR DERABLES Edited Result - Final [employer] [address] [address] * Hepatitis C Virus (HCV) Antibody With [...] MD LAB BLOOD ORDERABLES Final Re sult [facility] [address] from Last 3 Months or Most Recently Relevant to Health Maintenance Care Teams Consultant Internship Relationship Specialty Start Date End Date Renee Mora DO [address] [place] [address] PCP - General Family Medicine 06/04/24 Shanae Zarate MD [address] [place] [address] Consulting Physician Cardiology 10/13/20
--- OUTSIDE RECORDS SUMMARY | 2024-11-29 11:20 | XMS_ITS | Encounter Summary ---
Author Organization [facility] Address [address] [place] [address] Care Team Providers Care Wallcovering Texturer Name Role Phone Romero Licea MD Primary Care Provi clifton Shana Mike NP Unavailable [phone] Julius Canseco MD Unavailable Encounter Details Date Type Department Care Team (Late st Contact Info) Description 10/22/2021 Procedure Pass [facility] Surgery [address] [place] [address] Social History Tobacco Use Types Packs/Day Years Used Date Smoking Tobacco: Former Cigarettes 2 10 Smokeless Tobacco: Never Alcohol Use Standard Drinks/Week Comments No 0 (1 standard drink = 0.6 oz pur e alcohol) Sex and Gender Information Value Date Recorded Sex Assigned at Not on file Legal Sex Male 10:38 AM [facility] Gender Identity Not on file [...] on filedocumented in this encounter Care Teams Wallcovering Texturer Relationship Specialty Start Date End Date Romero Licea MD [address] [place], [place] [id number] PCP - General Family Medicine 08/03/21 Shana Mike NP [address] [place] [address] Nurse Practitioner Physical Medicine and Rehabilitation 11/15/22 Julius Canseco MD [address] [place] [address] Consulting Physician Physical Medicine and Rehabilitation 04/11/23 documented as of this encounter
--- OUTSIDE RECORDS SUMMARY | 2024-11-29 11:20 | XMS_ITS | Encounter Summary ---
Author Organization [facility] Address [address] [place] [address] Care Team Providers Care Vice President Of Nursing Name Role Phone Romero Licea MD Primary Care Provider Shanae Zarate MD Unavailable Princess Monroy DIRECTOR HEDIS Unavailable [phone] Luh NashD Unavailable Cathy Tee RN Unavailable Romero Licea MD Unavailable Renee Mora DO Unavailable Renee Mora DO Primary Care Provider Reason for Visit * Reason Comments Med Refill Encounter Details Date Type Department Care Team (Late st Contact Info) Description 06/27/2019 Refill [facility] [address] [place], [place] [id number] Nirmal Huizar MD [address] [place] [address] Social History Tobacco Use Types Packs/Day Years Used Date Smoking Tobacco: Never Assessed Sex and Gender Information Value Date Recorded Sex Assigned at Not on file Legal Sex Male 1:57 AM [facility] Gender Identity Not on file Sexual Orientation Not on file documented as of this encounter Plan of Treatment Not on file documented as of this encounter Visit Diagnoses Not on filedocumented in this encounter Care Teams Vice President Of Nursing Relationship Specialty Start Date End Date Romero Licea MD PCP - General Family Medicine 06/27/19 05/27/24 Romero Licea MD [address] [place] [address] PCP - Medicare Advantage - Attributed PCP 10/09/22 07/10/23 Renee Mora DO [address] [place] [address] PCP - Medicare Advantage - Attributed PCP 07/11/23 06/09/24 Renee Mora DO [address] [place] [address] PCP - General Family Medicine 06/04/24 Shanae Zarate MD [address] [place] [address] Consulting Physician Cardiology 10/13/20 Princess Monroy LCSW [address] [place] [address] Intranet Support Rectification Printer 10/31/20 05/27/24 Luh Nash, HunterD [address] [place] [address] Clinical Pharmacist Pharmacy 11/24/20 03/04/22 Cathy Tee, KAMERON [address] [place] [address] [place] [address] Card Scraper ( Nurse) Care Management 08/17/21 documented as of this encounter
--- OUTSIDE RECORDS SUMMARY | 2024-11-29 11:20 | XMS_ITS | Encounter Summary ---
Author Organization [facility] Address [address] [place] [address] Care Team Providers Care Bicycle Courier Name Role Phone Romero Licea MD Primary Care Provider Shanae Zarate MD Unavailable Princess Monroy ADULT PROTECTIVE CASEWORKER Unavailable [phone] Luh NashD Unavailable Cathy Tee RN Unavailable Romero Licea MD Unavailable Renee Mora DO Unavailable Renee Mora DO Primary Care Provider Reason for Visit * Reason Comments Med Refill Encounter Details Date Type Department Care Team (Late st Contact Info) Description 05/04/2019 Refill [facility] [address] [place], [place] [address] Nirmal Huizar MD [address] [place] [address] Social History Tobacco Use Types Packs/Day Years Used Date Smoking Tobacco: Never Assessed Sex and Gender Information Value Date Recorded Sex Assigned at Not on file Legal Sex Male 1:57 AM [facility] Gender Identity Not on file Sexual Orientation Not on file documented as of this encounter Plan of Treatment Not on file documented as of this encounter Visit Diagnoses Not on filedocumented in this encounter Care Teams Bicycle Courier Relationship Specialty Start Date End Date Romero Licea MD PCP - General Family Medicine 06/27/19 05/27/24 Romero Licea MD [address] [place] [address] PCP - Medicare Advantage - Attributed PCP 10/09/22 07/10/23 Renee Mora DO [address] [place] [address] PCP - Medicare Advantage - Attributed PCP 07/11/23 06/09/24 Renee Mora DO [address] [place] [address] PCP - General Family Medicine 06/04/24 Shanae Zarate MD [address] [place] [address] Consulting Physician Cardiology 10/13/20 Princess Monroy LCSW [address] [place] [address] Computer Technician Manager Power 10/31/20 05/27/24 Luh Nash, HunterD [address] [place] [address] Clinical Pharmacist Pharmacy 11/24/20 03/04/22 Cathy Tee, KAMERON [address] [place] [address] [place] [address] Distribution Agent ( Nurse) Care Management 08/17/21 documented as of this encounter
--- OUTSIDE RECORDS SUMMARY | 2024-11-29 11:20 | XMS_ITS | Encounter Summary ---
Author Organization [facility] Address [address] [place] [address] Care Team Providers Care Security And Compliance Analyst Name Role Phone Ubaldo Spring MD Primary Care Provider [phone] Romero Licea MD Primary Care [place] [place] Shana Mike NP Unavailable [phone] Julius Canseco MD Unavailable Encounter Details Date Type Department Care Team (Late st Contact Info) Description 09/24/2017 Procedure Pass [facility] [address] [place] [address] Social History Tobacco Use Types Packs/Day Years Used Date Smoking Tobacco: Former Cigarettes 2 10 2 - 2010 Smokeless Tobacco: Never Alcohol Use Standard Drinks/Week Comments No 0 (1 standard drink = 0.6 oz pur e alcohol) Sex and Gender Information Value Date Recorded Sex Assigned at Not on file Legal Sex Male 10:38 AM [facility] Gender Identity Not on file Sexual Orientation Not on file documented as of this encounter Plan of Treatment Not on file documented as of this encounter Visit Diagnoses Not on filedocumented in this encounter Care Teams Security And Compliance Analyst Relationship Specialty Start Date End Date Ubaldo Spring MD PCP - General Family Medicine 09/20/17 08/02/21 Romero Licea MD [address] [place] [address] PCP - General Family Medicine 08/03/21 Shana Mike NP [address] [place] [address] Nurse Practitioner Physical Medicine and Rehabilitation 11/15/22 Julius Canseco MD [address] [place] [address] Consulting Physician Physical Medicine and Rehabilitation 04/11/23 documented as of this encounter
--- OUTSIDE RECORDS SUMMARY | 2024-11-29 11:20 | XMS_ITS | Encounter Summary ---
Author Organization [facility] Address [address] [place] [address] Care Team Providers Care Semiconductor Packages Sealer Name Role Phone Shanae Zarate MD Unavailable Renee Mora DO Primary Care Provider [phone] Reason for Visit * Reason Comments Med Refill Encounter Details Date Type Department Care Team (Late st Contact Info) Description 06/23/2024 Refill [facility] [address] [place] [address] [place] [address] [place] [address] [address] [place] [address] Diabetic polyneuropathy associated with type 2 diabetes mellitus ([facility]/HCC) Social History Tobacco Use Types Packs/Day Years [...] often do you attend chur ch or methodist services? Patient declined 07/21/2022 Do you belong to any clubs o r organizations such as yazidism groups, unions, fraternal or athletic groups, or [...] Date Recorded Depression Risk (PHQ2) Score 0 [facility] - Occupational Stress Questionnaire Answer Date [...] (CMS/HCC) documented in this encounter Care Teams Semiconductor Packages Sealer Relationship Specialty Start Date End Date Renee Mora DO [address] [place] [address] PCP - General Family Medicine 06/04/24 Shanae Zarate MD [address] [place] [address] Consulting Physician Cardiology 10/13/20 documented as of this encounter
--- OUTSIDE RECORDS SUMMARY | 2024-11-29 11:21 | XMS_ITS | Encounter Summary ---
Author Organization [facility] Address [address] [place] [address] Care Team Providers Care Treatment Plant Mechanic Name Role Phone Romero Licea MD Primary Care [place] Shana Mike DENTAL LAB TECHNICIAN Unavailable [phone] Julius Canseco MD Unavailable Encounter Details Date Type Department Care Team (Late st Contact Info) Description 04/11/2023 Procedure Pass [facility] [address] [place] [address] Social History Tobacco Use Types Packs/Day Years Used Date Smoking Tobacco: Former Cigarettes 2 10 Smokeless Tobacco: Never Alcohol Use Standard Drinks/Week Comments No 0 (1 standard drink = 0.6 oz pur e alcohol) Sex and Gender Information Value Date Recorded Sex Assigned at Not on file Legal Sex Male 10:38 AM [facility] Gender Identity Not on file Sexual Orientation Not on file documented as of this encounter Plan of Treatment Not on file documented as of this encounter Visit Diagnoses Not on filedocumented in this encounter Care Teams Treatment Plant Mechanic Relationship Specialty Start Date End Date Romero Licea MD [address] [place], [place] [id number] PCP - General Family Medicine 08/03/21 Shana Mike, JAYNA [address] [place], [place] [id number] Nurse Practitioner Physical Medicine and Rehabilitation 5/8/23 Julius Canseco MD [address] [place] [address] Consulting Physician Physical Medicine and Rehabilitation 04/11/23 documented as of this encounter
--- OUTSIDE RECORDS SUMMARY | 2024-11-29 11:21 | XMS_ITS | Clinical Summary ---
Author Organization [facility] Address [address] [place] [address] Care Team Providers Care Hris Manager Name Role Phone Romero Licea MD Primary Care Pro[place] Shana Mike NP Unavailable [phone] Julius Canseco MD Unavailable Allergies No known active allergies Medications metFORMIN (GLUCOPHAGE) 1000 mg tablet Take 1,000 mg by mouth 2 (two) times daily with breakfast and dinner. Active pioglitazone (ACTOS) 15 mg tablet Take 15 mg by mouth daily. Active lisinopril (PRINIVIL,ZESTR IL) 20 mg tablet Take 20 mg by mouth daily. Active aspirin 81 MG tablet Take 81 mg by mouth daily. Active Medical MarijuanaIndica tions:edibles Inhale into the lungs as needed for Other. Active albuterol (VENTOLIN) 108 (90 Base) MCG/ACT inhaler INHALE 2 PUFFS EVERY FOUR HOURS NEEEDED FOR SHORTNESS OF BREATH, WHEEZING, COUGH 1 Active atorvastatin (LIPITOR) 40 mg tablet Take 40 mg by mouth daily. 1 Active bictegravir-emt ricitabine-teno fovir (BIKTARVY) 50-200-25 mg per tablet Take 1 tablet by mouth Daily. 0 Active escitalopram (LEXAPRO) 10 mg tablet Take 10 mg by mouth daily. 1 Active metoprolol tartrate (LOPRESSOR) 25 mg tablet Take 50 mg by mouth 2 (two) times daily. 1 Active SPIRIVA HANDIHALER [address] 1 capsule into inhaler and inhale daily. 1 Active Dulaglutide (TRULICITY) 0.75 MG/0.5ML SOPN Inject 0.75 mg into the skin once a week. Active Active Problems Problem Noted Date Diagnosed Date Degenerative disc disease, cervical 11/25/2021 Degenerative disc disease, lumbar 11/25/2021 Spinal stenosis of lumbar re gion with neurogenic claudication 11/25/2021 Isthmic spondylolisthesis 11/25/2021 Cervical radiculopathy 10/06/2021 Overview (10/06/2021): Added automatically from request for surgery [id number] Lumbar radiculopathy 10/05/2021 Overview (10/05/2021): Added automatically from request for surgery [id number] Fever 09/23/2017 Asthma 09/21/2017 HIV (human immunodeficiency virus infection) COPD (chronic obstructive pulmonary disease) Hypertension 09/21/2017 Polycythemia 09/21/2017 Hyponatremia 09/21/2017 Dehydration 09/20/[address] scan, stomach 09/20/2017 Overview (09/23/2017): Added automatically from request for surgery [id number] Social History Tobacco Use Types Packs/Day Years Used Date Smoking Tobacco: Former Cigarettes 2 10 Smokeless Tobacco: Never Tobacco Cessation:Counseling Given: Not Answered Alcohol Use Standard Drinks/Week Comments No 0 (1 standard drink = 0.6 oz pur e alcohol) Sex and Gender Information Value Date Recorded Sex Assigned at Not on file Legal Sex Male 10:38 AM [facility] Gender Identity Not on file Sexual Orientation Not on file Last Filed Vital Signs Vital Sign Reading Time Taken Comments Blood Pressure 128/72 04/11/2023 5:00 PM [facility] Pulse 66 04/11/2023 5:00 PM [facility] Temperature 36.6 ??C (97.8 ??F) 04/11/2023 2:43 PM MS T Respiratory Rate 16 04/11/2023 5:00 PM [facility] Oxygen Saturation 99% 04/11/2023 5:00 [...] AA) Screening 2022 09/21/2017, 09/20/2017 Influenza Vaccine (Season Ended) 2025 04/14/2021, 04/28/2016 DTaP,Tdap,or Td Vaccines (3 - Td [...] Results * COLONOSCOPY (08/03/2021 1:34 PM MST) us Franky Gill MD GI PROCEDURE ORDERABLES Fin al Result * CT chest abdomen pelvis with contrast (09/21/2017 8:44 PM [facility]) Anatomical Region Laterality Modality Abdomen, Chest, Pelvis, Hip Comp uted Tomography 09/21/2017 8:42 PM [facility] Narrative 09/21/2017 8:55 PM [facility] CT THORAX, ABDOMEN AND PELVIS [...] abdomen and pelvis as detailed above. Seecomment. us Bright Sanchez MD [facility] CT ORDERABLES Final Result * (ABNORMAL) Hemoglobin A1c (09/21/2017 4:47 AM [facility]) Hemoglobin A1C 8.5(H) <=5.7 % 09/21/2017 9:55 AM [facility] 197.3 mg/dL 09/21/2017 9:55 AM [facility] Blood BLOOD SPECIMEN / Unknown Venipuncture / Unknown 09/21/2017 4:47 AM [facility] 09/21/2017 4:57 AM [facility] Narrative [facility] - 09/21/2017 9:55 AM [facility] The [place] Diabetes [employer] (ADA) guidelines for interpreting Hemoglobin A1C are as follows: Non-Diabetic patient: <5.7% Increased risk for future Diabetes: 5.7-6.4% ADA diagnostic criteria for Diabetes: >6.4% Values for patients with Diabetes: Result <7.0%: ??Meets ADA's recommendation goal for therapy. Result 7.0-8.0%: Exceeds ADA's recommended goal. Result >8.0%: ADA recommends reevaluation of therapy. Dre Perez MD LAB BLOOD ORDERABLES Bess chavez Result [address] [phone] from Last 3 Months or Most Recently Relevant to Health Maintenance Insurance [facility] MEDICARE ADVANTAGE [facility] MEDICARE ADVANTAGE [facility] MEDICARE ADVANTAGE [employer] MEDICARE ADVANTAGE Advance Directives For more information, please contact: [phone] * Full Code (Latest Code Status on File) Date Activated Date Inactivated Comments 09/20/2017 8:25 PM 09/26/2017 4:14 PM Care Teams Hris Manager Relationship Specialty Start Date End Date Romero Licea MD [address] [place], [place] [id number] PCP - General Family Medicine 08/03/21 Shana Mike NP [address] [place] [address] Nurse Practitioner Physical Medicine and Rehabilitation 11/15/22 Julius Canseco MD [address] [place] [address] Consulting Physician Physical Medicine and Rehabilitation 04/11/23
--- OUTSIDE RECORDS SUMMARY | 2024-11-29 11:21 | XMS_ITS | Encounter Summary ---
Author Organization [facility] Address [address] [place] [address] Care Team Providers Care Matting Press Tender Name Role Phone Romero Licea MD Primary Care Provi [place] Shana Mike NP Unavailable [phone] Julius Canseco MD Unavailable [phone] Encounter Details Date Type Department Care Team (Late st Contact Info) Description 01/21/2022 Procedure Pass [facility] [address] [place] [address] Social History Tobacco Use Types [...] on filedocumented in this encounter Care Teams Matting Press Tender Relationship Specialty Start Date End Date Romero Licea MD [address] [place], [place] [id number] PCP - General Family Medicine 08/03/21 Shana Mike NP [address] [place] [address] Nurse Practitioner Physical Medicine and Rehabilitation 11/15/22 Julius Canseco MD [address] [place] [address] Consulting Physician Physical Medicine and Rehabilitation 04/11/23 documented as of this encounter
--- OUTSIDE RECORDS SUMMARY | 2024-11-29 11:21 | XMS_ITS | Encounter Summary ---
Author Organization [facility] Address [address] [place] [address] Care Team Providers Care Alarm Adjuster Name Role Phone Romero Licea MD Primary Care Provi [place] Shana Mike PRINTING PLATE SETTER Unavailable [phone] Julius Canseco MD Unavailable Encounter Details Date Type Department Care Team (Late st Contact Info) Description 04/25/2023 Procedure Pass [facility] [address] [place] [address] Social History Tobacco Use Types Packs/Day Years Used Date Smoking Tobacco: Former Cigarettes 2 10 Smokeless Tobacco: Never Alcohol Use Standard Drinks/Week Comments No 0 (1 standard drink = 0.6 oz pur e alcohol) Sex and Gender Information Value Date Recorded Sex Assigned at Not on file Legal Sex Male 10:[address] [facility] Gender Identity Not on file Sexual Orientation Not on file documented as of this encounter Plan of Treatment Not on file documented as of this encounter Visit Diagnoses Not on filedocumented in this encounter Care Teams Alarm Adjuster Relationship Specialty Start Date End Date Romero Licea MD [address] [place], [place] [id number] PCP - General Family Medicine 08/03/21 Shana Mike, JAYNA [address] [place], [place] [id number] Nurse Practitioner Physical Medicine and Rehabilitation 5/8/23 Julius Canseco MD [address] [place] [address] Consulting Physician Physical Medicine and Rehabilitation 04/11/23 documented as of this encounter
--- OUTSIDE RECORDS SUMMARY | 2024-11-29 11:21 | XMS_ITS | Continuity of Care Document ---
Author Organization [facility] Address [address] [place] [address] Phone Care Team Providers Care Curriculum Facilitator Name Role Phone Unavailable Unavailable Unavailable Medications [...] Diagnoses Date Provider Providers Copied on Encounter [facility] [place], [id number], tel:[phone] Conversion Location [facility] No Information No Information [facility] [place], [id number], tel:[phone] Conversion Location [facility] 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 [address] , [facility] [address], [place], [place], [id number], . tel:[phone] Family History Family Member Type Diagnosis Age [...]
--- OUTSIDE RECORDS SUMMARY | 2024-11-29 11:21 | XMS_ITS | Encounter Summary ---
Author Organization [facility] Address [address] [place] [address] Care Team Providers Care Managed Services Consultant Name Role Phone Romero Licea MD Primary Care Provi [place] Shana Mike NP Unavailable [phone] Julius Canseco MD Unavailable Encounter Details Date Type Department Care Team (Late st Contact Info) Description 02/04/2022 Procedure Pass [facility] [address] [place] [address] Social History Tobacco Use Types Packs/Day Years Used Date Smoking Tobacco: Former Cigarettes 2 10 Smokeless Tobacco: Never Alcohol Use Standard Drinks/Week Comments No 0 (1 standard drink = 0.6 oz pur e alcohol) Sex and Gender Information Value Date Recorded Sex Assigned at Not on file Legal Sex Male 10:38 AM [facility] Gender Identity Not on file [...] on filedocumented in this encounter Care Teams Managed Services Consultant Relationship Specialty Start Date End Date Romero Licea MD [address] [place], [place] [id number] PCP - General Family Medicine 08/03/21 Shana Mike NP [address] [place] [address] Nurse Practitioner Physical Medicine and Rehabilitation 11/15/22 Julius Canseco MD [address] [place] [address] Consulting Physician Physical Medicine and Rehabilitation 04/11/23 documented as of this encounter
[2024-11-29 11:29] VITALS: PULSE 72; O2SAT 97
== END 2024-11-29 10:42 | disposition home or self-care (01) ==
LOC: HO.RESP 10:41
PROVIDERS: PCP Physician Assistant; Visit Provider Physician Assistant
DX: J44.9 Chronic obstructive pulmonary disease, unspecified (principal)
CPT/HCPCS: 94010; 94640; 94727; 94729

== ENCOUNTER → 2024-11-29 10:45 | Outpatient (BNV) | payer MEDICARE, SELFPAY | PROVIDERS: PCP Physician Assistant; Visit Provider Internal Medicine Pulmonary Disease | DX: J44.9 Chronic obstructive pulmonary disease, unspecified (principal) | CPT/HCPCS: 94060; 94727; 94729 ==

== ENCOUNTER 2024-11-30 11:17 | Outpatient (AMB) | payer MEDICARE, SELFPAY ==
--- NOTE | 2024-11-30 11:19 | MHC.OFFVIS ---
Vital Signs 11/30/24 11:24 Height 5 ft 9 in Weight 197 lb BMI 29.1 Pulse 73 Pulse Source Pulse Oximeter Pulse Oximetry (%) 98 Oxygen Delivery Method Room Air Intake Visit Reasons: HIV Allergies No Known Allergies Allergy (Verified 11/30/24 11:25) HPI HPI HIV: Details: He is here for HIV care. He recently moved from [place] here to be near family. He was born in the [facility] to a family. He had trouble getting back on Medicaid in [place]. He had been on it before. Here he cannot give Biktarvy covered he says by his insurance. He has been getting it he say from relative by marriage in [facility]. He has said this has been the case for about seven years and he managed it by getting from family and also he would take Biktarvy every other day to extend his script and then he would stop Biktarvy until his CD4 got down near zero and then restart it. His most recent viral load is 97 on 10/17 and now he is off Biktarvy again. He is diabetic and on atorvastatin and insulin ,metformin 1 bid and lisinopril and lexapro 10 mg daily. [facility] Medical History Hyperlipidemia Diabetes High blood pressure Surgical History Hx of heart artery stent Social History Housing: House Housing Other:: [facility] Normally lived in an , but is currently in the shop Patient Tobacco Use Status: Never used Tobacco e-Cigarette/Vaping Use: Never Used Second Hand Smoke Exposure: Yes service: No Current occupational status: retired Cognitive needs: No Hearing needs: Yes (Hearing aids. Did not put them in today. ) Vision needs: No Review of Systems Const All systems reviewed & are unremarkable except as noted in HPI and below Physical Exam Vital Signs: Last Vital Signs Pulse 73 11/30/24 11:24 Pulse Ox 98 11/30/24 11:24 Oxygen Delivery Method Room Air 11/30/24 11:24 BMI result Body Mass Index 29.1 Const General: cooperative Orientation/consciousness: patient oriented x3 HEENT Head: Yes normal to inspection Mouth: Normal oral and palatal mucosa present Eyes General: appearance normal, both eyes and all related structures Pupils: Equal, round and reactive pupils present Resp Effort & Inspection: normal respiratory effort Cardio Rate: regular rate Rhythm: regular rhythm GI Palpation (GI): Soft to palpation and nontender General: Yes no CVA tenderness Back/Spine/Pelvis Back: no CVA tenderness Skin General skin exam: no rashes or lesions noted Neuro General: patient oriented x3 Cranial nerves: Yes CN's II-XII intact bilaterally and Yes Equal, round and reactive pupils present Extrem General: Yes normal to inspection Psych Appearance: grossly normal Assessment & Plan Assessment & Plan (1) HIV (human immunodeficiency virus infection): Comment: He has been having difficulties accessing medication. Code(s): Z21 - Asymptomatic human immunodeficiency virus [HIV] infection status Category: Medical Plan: Would continue Biktarvy. Statin Anal Pap in future. See every six months. Coding Level of Care Code Est Pt Level 4 (69003) Diagnoses HIV (human immunodeficiency virus infection) Z21
[2024-11-30 11:24] VITALS: PULSE 73; O2SAT 98; BMI 29.1
== END 2024-11-30 12:07 | disposition home or self-care (01) ==
LOC: HO.HID 11:17
PROVIDERS: PCP Physician Assistant; Visit Provider Internal Medicine
DX: Z21 Asymptomatic human immunodeficiency virus [HIV] infection status (principal)
CPT/HCPCS: 99214

== ENCOUNTER → 2024-11-30 11:17 | Outpatient (BNVA) | payer MEDICARE, SELFPAY | PROVIDERS: PCP Physician Assistant; Visit Provider Internal Medicine | DX: Z21 Asymptomatic human immunodeficiency virus [HIV] infection status (principal) | CPT/HCPCS: 99212 ==

== ENCOUNTER 2024-12-18 10:45 | Outpatient (AMB) | payer MEDICARE, SELFPAY ==
--- NOTE | 2024-12-18 11:06 | MHC.OFFVIS ---
Vital Signs 12/18/24 11:08 Height 5 ft 9 in Weight 180 lb 12.465 oz BMI 26.7 BP 104/64 Blood Pressure Location Rt brachial Position Sitting Pulse 73 Pulse Source Pulse Oximeter Pulse Oximetry (%) 98 Oxygen Delivery Method Room Air Intake Visit Reasons: T2DM Intake Note: New patient internally referred by PCP for T2DM. Last Diabetic Eye exam: 10/29/2024 [facility] Last Podiatry Visit: Does not see a Cat Scan Tech Random Glucose: 149 mg/dl HgA1C: 6.0% 12/18/2024 [place] Machine Operator Required: No Accompanied by: Self / Same As Patient Allergies No Known Allergies Allergy (Verified 12/18/24 11:09) Medication List - Last Reconciled 12/18/24 by HANK Arias albuterol sulfate 90 mcg/actuation 2 puffs inhalation Q6H PRN atorvastatin 40 mg PO BEDTIME aoyfsspee-bviukdnm-oknlocq ala (Biktarvy) PO dulaglutide (Trulicity) 3 mg (0.5 mL) subcut QWEEK escitalopram oxalate 10 mg PO DAILY ferrous gluconate 324 mg PO DAILY insulin glargine (Lantus Solostar U-100 Insulin) 20 units subcut QPM lisinopril 40 mg PO DAILY metformin 1,000 mg PO BID pen needle, diabetic Use BID As directed trazodone 50 mg PO BEDTIME HPI Comments Details: This is a 69-year-old male with a past medical history of anemia, COPD, skin cancer, HIV, anxiety with depression, coronary artery disease and type 2 diabetes presenting for initial consult for diabetic management. He was diagnosed with diabetes 20 years ago. Father had type II diabetes. Denies family history of type 1 diabetes. He does not have a glucometer with him today. He checks his blood sugars in the morning. Patient reports insulin was reduced from 32 to 10 units, and his fasting sugars were over 200 so he increased his Lantus to 15 units, and fasting sugars have been 170-180 during the past week. Hemoglobin a1c 6.0% today. Current medication regimen: Lantus 15 units every evening, metformin 1000 mg twice a day and Trulicity 3 mg weekly. He has taken 2 injections on the 3 mg dose of Trulicity so far. Denies side effects. Past medications: Actos (side effects), Glipizide (does not remember why it was discontinued). Compliance issues: Noncompliance with diabetic diet Diet: Eats 1 meal per day in the late afternoon. He is trying factor meals. Snacks on oranges during the day. Drinks 6-10 cans of pepsi during the day. He used to drink more, but he has substituted some of this with diet root beer. He says there is a lot of junk food in the house that he snacks on during the day if he does eat before having his larger meal in the afternoon. Patient says he has always eaten like this. Denies alcohol use. He is not smoking. Hypoglycemia symptoms: none Hyperglycemia symptoms: dry mouth, polyuria, polydipsia, fatigue Eye exam: [facility], up-to-date Microvascular complications: neuropathy Macrovascular complications: CAD Hypertension: treated with lisinopril 40 mg Hyperlipidemia: treated with atorvastatin 40 mg On ROS he endorses 40 lb weight loss since November 2023. Patient says he used to weigh 220 lb. Today he is 180 lb. Endorses frequent nausea and vomiting every other day or daily for the past year. Patient says this did not start after he was put on metformin and Trulicity, and he has been on these medications for several years. ROS: Constitutional: No fevers, chills, night sweats or fatigue. See HPI. Eyes: No vision changes, blurry vision, double vision, eye pain Cardiovascular: No chest pain or pedal edema. Gastrointestinal: See HPI Neurologic: + neuropathy in his feet. No dizziness or syncope or headache. Skin: No rash Endocrine: see HPI Physical exam: Constitutional: Alert, in no distress. Eyes: Pupils are equal, round and reactive to light. Extraocular muscles intact. Neck: Supple, Full range of motion. No lymphadenopathy. No palpable thyroid masses. Respiratory: Clear to auscultation. Cardiovascular: S1 S2 regular. No murmurs. .Right foot: Warm and well perfused. No clubbing, cyanosis or edema. Intact DP pulse. Absent vibratory sensation. Absent sensation to monofilament in the toes except for the great toe. No open wounds. Left foot: Warm and well perfused. No clubbing, cyanosis or edema. Intact DP pulse. Decreased vibratory sensation. Decreased sensation to monofilament in all the toes. No open wounds. [facility] Medical History (Updated 12/18/24 @ 12:06 by HANK Arias) Weight loss Hyperlipidemia Diabetes High blood pressure Surgical History Hx of heart artery stent Social History Housing: House Housing Other:: Lives with melina. Normally lived in an RV, but is currently in the shop Patient Tobacco Use Status: Never used Tobacco e-Cigarette/Vaping Use: Never Used Second Hand Smoke Exposure: Yes service: No Current occupational status: retired Cognitive needs: No Hearing needs: Yes (Hearing aids. Did not put them in today. ) Vision needs: No Physical Exam Vital Signs: Last Vital Signs Pulse 73 12/18/24 11:08 BP 104/64 12/18/24 11:08 Pulse Ox 98 12/18/24 11:08 Oxygen Delivery Method Room Air 12/18/24 11:08 BMI result Body Mass Index 26.7 Results AMB Hemoglobin A1c AMB Hemoglobin A1c 6.0 % Last Edit by WALLY Perez on 12/18/24 11:23 Results Reviewed Results Reviewed: Laboratory Last Values Glucose (Clinic) 149 mg/dL (60-115) H 12/18/24 11:14 Laboratory Tests 10/17/24 10/17/24 11/21/24 12:45 12:50 11:37 Plt Count 228 Creatinine 0.92 Estimated GFR > 60 AST 20 ALT 10 Triglycerides 123 Cholesterol 129 LDL Cholesterol, Calc 70 HDL Cholesterol 35 L TSH 1.02 Urine Creatinine 149.66 Urine Microalbumin 18.0 Microalb/Creat Ratio 12.0 Assessment & Plan Assessment & Plan (1) Type 2 diabetes mellitus, with long-term current use of insulin: Code(s): E11.9 - Type 2 diabetes mellitus without complications; Z79.4 - [facility] (current) use of insulin Category: Medical Plan: In summary this is a 69-year-old male with type 2 diabetes with micro and macrovascular complications. Patient endorses hyperglycemia since decreasing the dose of insulin. Increase Lantus to 20 units every evening. Continue metformin 1000 mg twice a day and Trulicity 3 mg weekly. Discussed pathophysiology of Type II Diabetes Mellitus with the patient in detail.? I explained the custodial risks and complications associated with uncontrolled diabetes including nephropathy, neuropathy, peripheral vascular disease, retinopathy, increased risk of heart disease and stroke.? Discussed lifestyle modification with the patient. Refer to special education paraeducator. Declines referral to dietitian. Advised patient that soda intake is excessive and contributing to hyperglycemia and progression of diabetes. Written instructions provided to treat hypoglycemia. Glucose tablets sent to pharmacy. The patient is prescribed a CGM. He will call to schedule the appointment with the special education paraeducator to set this up once he receives it from the pharmacy. (2) Weight loss: Code(s): R63.4 - Abnormal weight loss Category: Medical Plan: Advised patient that weight loss is concerning and reviewed differential including undiagnosed malignancy. He does not feel this is related to his diabetic medications since he has been on them for several years, and he has experienced the weight loss within the past year only. Recommended he reach out to PCP office, and I have forwarded this message to the office so he can be scheduled for an evaluation with his primary care provider. Reports that he was already referred to Gastroenterology since he is due for colonoscopy. Plan Follow up in 1 month. Orders: Orders AMB Hemoglobin A1c Today HANK Arias E11.9 - Type 2 diabetes mellitus without complications, Z79.4 - [facility] (current) use of insulin Referrals Diabetes Education Referral HANK Arias E11.65 - Type 2 diabetes mellitus with hyperglycemia Medications: New glucose (Dex4 Glucose Quick Dissolve) until symptoms of low blood sugar are controlled 16 grams (4 x 4 gram) PO Q15M PRN 10 tabs 3RF hypoglycemia HANK Arias blood-glucose,forging press lever tender,cont (FreeStyle Charlie 3 [place]) Use daily to monitor blood glucose levels continuously. 1 ea 0RF HANK Arias blood-glucose sensor (FreeStyle Charlie 3 Plus Sensor device) Apply 1 new sensor every 15 days as directed to monitor blood glucose continuously. 2 ea 11RF HANK Arias Changed From insulin glargine (Lantus Solostar U-100 Insulin) 10 units (0.1 mL) subcut QPM 15 mL 2RF To insulin glargine (Lantus Solostar U-100 Insulin) 20 units subcut QPM Mirian Bermudez, PA-C Patient Instructions: If you experience low blood sugar, treat this by eating a chewable fruit candy like skittles or jelly beans (about 8 pieces), 4 ounces (1/2 cup) of fruit juice (not diet), 1 tablespoon of honey or 4 glucose tablets. If your blood sugar is under 55, take double the amount of one of the above. Recheck your blood sugar in 15 minutes. Increase Lantus to 20 units at bedtime Continue Trulity 3 mg weekly Continue Metformin 1000 mg twice daily. [email or web address] Please call the office once you berry picker machine operator your charlie 3 plus sensors and reader from the pharmacy to schedule an appointment with the special education paraeducator to set this up. Coding Level of Care Code New Pt Level 4 (86506) Complex EM visit Add On G2211 Diagnoses Type 2 diabetes mellitus, with long-term current use of insulin E11.9; Z79.4 Weight loss R63.4
[2024-12-18 11:08] VITALS: BP 104/64; PULSE 73; O2SAT 98; BMI 26.7
[2024-12-18 11:18] LABS: Glucose, Whole Blood 149 mg/dL (60-115)
--- OUTSIDE RECORDS SUMMARY | 2024-12-18 12:39 | XMS_ITS | Encounter Summary ---
Author Organization [facility] Address [address] [place] [address] Care Team Providers Care Emergency Preparedness Manager Name Role Phone Shanae Zarate MD Unavailable Renee Mora DO Primary Care Provider [phone] Reason for Visit * Reason Comments Med Refill Encounter Details Date Type Department Care Team (Late st Contact Info) Description 06/23/2024 Refill [facility] [address] [place] [address] [place] [address] [place] [address] [address] [place] [address] Diabetic polyneuropathy associated with type 2 diabetes mellitus ([facility]/HCC) Social History Tobacco Use Types Packs/Day [...] often do you attend chur ch or yarsanism services? Patient declined 07/21/2022 Do you belong to any clubs o r organizations such as hinduism groups, unions, fraternal or athletic groups, or [...] Date Recorded Depression Risk (PHQ2) Score [facility] - Occupational Stress Questionnaire Answer Date [...] place to sleep or slept in a nursing home (including now)? No 07/21/2022 Sex and [...] (CMS/HCC) documented in this encounter Care Teams Emergency Preparedness Manager Relationship Specialty Start Date End Date Renee Mora DO [address] [place] [address] PCP - General Family Medicine 06/04/24 Shanae Zarate MD [address] [place] [address] Consulting Physician Cardiology 10/13/20 documented as of this encounter
== END 2024-12-18 11:54 | disposition home or self-care (01) ==
LOC: HO.ENCR 10:46
PROVIDERS: PCP Physician Assistant; Visit Provider Physician Assistant Medical
DX: E11.9 Type 2 diabetes mellitus without complications (principal); Z79.4 Long term (current) use of insulin; R63.4 Abnormal weight loss

== ENCOUNTER → 2024-12-18 10:45 | Outpatient (BNVA) | payer MEDICARE, SELFPAY | PROVIDERS: PCP Physician Assistant; Visit Provider Physician Assistant Medical | DX: E11.65 Type 2 diabetes mellitus with hyperglycemia (principal); Z79.4 Long term (current) use of insulin | CPT/HCPCS: 82947; 83036; 99202 ==

== ENCOUNTER 2025-01-08 15:07 | Outpatient (AMB) | payer MEDICARE, SELFPAY ==
[2025-01-08 15:11] VITALS: BP 110/66; PULSE 80; O2SAT 95; BMI 26.4
--- NOTE | 2025-01-08 15:11 | MHC.OFFVIS ---
Vital Signs 01/08/25 15:11 Height 5 ft 9 in Weight 179 lb 2 oz BMI 26.4 BP 110/66 Blood Pressure Location Rt brachial Position Sitting Pulse 80 Pulse Source Pulse Oximeter Pulse Oximetry (%) 95 Oxygen Delivery Method Room Air Intake Visit Reasons: copd Allergies No Known Allergies Allergy (Verified 01/08/25 15:15) HPI HPI copd: Details: Kvng is pleasant 69 year old male, never smoker, mild COPD, DMII, HIV and CAD. He was referred by PCP for pulmonary evaluation. He reports suboptimal control using Spiriva for several years and reports improvement in breathing, although he experiences a daily dry cough and intermittent shortness of breath. He uses albuterol MDI daily, and reports wheezing that has improved but persists. Denies prior h/o asthma. He recently moved here from [place] and questions allergic contribution as well as weather changes triggering symptoms. Denies recent allergy testing. The patient denies a history of recurrent respiratory infections such as pneumonia or bronchitis. 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 He reports father, smoker, with h/o lung cancer, otherwise denies any pertinent family history. [facility] Medical History (Updated 01/08/25 @ 15:40 by Maria Isabel Ortiz NP) Weight loss Hyperlipidemia Diabetes High blood pressure Surgical History Hx of heart artery stent Social History Housing: House Housing Other:: Lives with [facility]. Normally lived in an , but is currently in the shop Patient Tobacco Use Status: Never used Tobacco e-Cigarette/Vaping Use: Never Used Second Hand Smoke Exposure: Yes service: No Current occupational status: retired Cognitive needs: No Hearing needs: Yes (Hearing aids. Did not put them in today. ) Vision needs: No Review of Systems Const Denies chills, Denies excessive sweating, Denies fever(s), Denies headache(s) and Denies night sweats Eyes Denies dry eyes, Denies irritation and Denies itchy eyes ENT Reports Normal hearing present, Denies headache(s), Denies nasal congestion, Denies nasal discharge, Denies post nasal drip and Denies sore throat Card Denies chest pain, Denies chest pain at rest, Denies chest pain with activity, Denies claudication, Denies leg edema, Denies orthopnea and Denies paroxysmal nocturnal dyspnea Resp Denies chest congestion, Denies excessive phlegm production, Denies pain on inspiration, Denies pain with cough and Denies stridor Musc Denies myalgias Neuro Reports Normal hearing present and Denies headache(s) Endo Denies excessive sweating Constantine/Lymph Denies lymphadenopathy Aller/Immun Denies itchy eyes and Denies seasonal rhinorrhea Physical Exam Vital Signs: Last Vital Signs Pulse 80 01/08/25 15:11 BP 110/66 01/08/25 15:11 Pulse Ox 95 01/08/25 15:11 Oxygen Delivery Method Room Air 01/08/25 15:11 BMI result Body Mass Index 26.4 Const General: cooperative, healthy appearing, comfortable, no acute distress, well developed and alert Orientation/consciousness: patient oriented x3 Limitations: no limitations HEENT Head: Yes normal to inspection, Yes normocephalic and Yes atraumatic Ears: hearing grossly normal bilaterally and external ears normal Eyes General: appearance normal, both eyes and all related structures Eyelids: Yes eyelids normal Sclerae: sclerae normal EOM: EOMs intact bilaterally Neck Neck: Yes normal visual inspection and Yes no lymphadenopathy Lymphatic: no lymphadenopathy noted Chest Chest palpation & inspection: normal inspection of the chest Resp Effort & Inspection: normal respiratory effort, able to speak in complete sentences, no audible wheezes, no cough, no stridor, not tachypneic, no tripod positioning and no use of accessory muscles Auscultation: wheezes and diminished lung sounds Cardio Jugular venous distension: no JVD Rate: regular rate Rhythm: regular rhythm Skin Other: warm, dry General skin exam: no rashes or lesions noted Neuro General: patient oriented x3 Cranial nerves: Yes Normal hearing present Cognition (Neuro): normal cognition Gait exam (Neuro): Normal gait present Extrem General: Yes normal to inspection, Yes capillary refill normal, Yes no clubbing, cyanosis or edema and Yes no pedal edema Psych Appearance: grossly normal and well kempt Speech and movement: Normal speech and movement present and Clear speech present Affect: normal affect Attitude: cooperative Thought process: Normal thought process present Thought content: Normal thought content present Insight: Good insight present (Psych) Judgement: Good judgement present (Psych) Assessment & Plan Assessment & Plan (1) COPD (chronic obstructive pulmonary disease): Code(s): J44.9 - Chronic obstructive pulmonary disease, unspecified Category: Medical (2) Dyspnea: Code(s): R06.00 - Dyspnea, unspecified Category: Medical (3) Environmental allergies: Code(s): Z91.09 - Other allergy status, other than to drugs and biological substances Category: Medical Plan Kvng presents for pulmonary evaluation for known h/o COPD and suboptimal control using Spiriva. Will send in Breo in addition to Spiriva and albuterol MDI. At this time patient with exacerbation, will send prednisone. We reviewed the potential side effects of prednisone, including mood changes and increased blood sugar levels, and advised monitoring these closely. The patient was informed about the need for a chest x-ray which he will have performed at [place]. PFT recently performed which revealed mild obstructive defect with normal DLCO. Will also send for RAST testing to assess for an allergic component. He is aware to contact us sooner if symptoms do not improve or seek emergent care if symptoms worsen. All questions were answered and patient is in agreement of plan. We will follow up in 6-8 weeks or sooner if needed. Orders: Orders XR chest 2V 01/08/25 R06.00 - Dyspnea, unspecified Resp Allergy Profile Region I 01/08/25 Z91.09 - Other allergy status, other than to drugs and biological substances Immunoglobulin E 01/08/25 Z91.09 - Other allergy status, other than to drugs and biological substances Medications: New fluticasone furoate-vilanterol 100-25 mcg/dose (Breo Ellipta) 1 inh inhalation DAILY 60 ea 6RF prednisone 40 mg (2 x 20 mg) PO DAILY 10 tabs 0RF Coding Level of Care Code New Pt Level 4 (47111) Diagnoses COPD (chronic obstructive pulmonary disease) J44.9 Dyspnea R06.00 Environmental allergies Z91.09
--- OUTSIDE RECORDS SUMMARY | 2025-01-08 15:59 | XMS_ITS | Encounter Summary ---
Author Organization [facility] Address [address] [place] [address] Care Team Providers Care Deep Submergence Vehicle Crewmember Name Role Phone Shanae Zarate MD Unavailable Renee Mora DO Primary Care Provider [phone] Reason for Visit * Reason Comments Med Refill Encounter Details Date Type Department Care Team (Late st Contact Info) Description 06/23/2024 Refill [facility] [address] [place] [address] [place] [address] [place] [address] [address] [place] [address] Diabetic polyneuropathy associated with type 2 diabetes mellitus ([facility]/HCC) Social History Tobacco Use Types Packs/Day Years [...] often do you attend chur ch or anabaptism services? Patient declined 07/21/2022 Do you belong to any clubs o r organizations such as episcopalian groups, unions, fraternal or athletic groups, or [...] Date Recorded Depression Risk (PHQ2) Score 0 [facility] - Occupational Stress Questionnaire Answer [...] (CMS/HCC) documented in this encounter Care Teams Deep Submergence Vehicle Crewmember Relationship Specialty Start Date End Date Renee Mora DO [address] [place] [address] PCP - General Family Medicine 06/04/24 Shanae Zarate MD [address] [place] [address] Consulting Physician Cardiology 10/13/20 documented as of this encounter
--- OUTSIDE RECORDS SUMMARY | 2025-01-08 15:59 | XMS_ITS | Encounter Summary ---
Author Organization [facility] Address [address] [place] [address] Care Team Providers Care Exhaust And Muffler Repairer Name Role Phone Ubaldo Spring MD Primary Care Provider [phone] Romero Licea MD Primary Care Provi [facility] Shana Mike NP Unavailable [phone] Julius Canseco MD Unavailable Encounter Details Date Type Department Care Team (Late st Contact Info) Description 09/23/2017 Procedure [facility] End[facility] [address] [place] [address] Social History Tobacco Use Types Packs/Day Years Used Date Smoking Tobacco: Former Cigarettes 2 10 2 - 2010 Smokeless Tobacco: Never Alcohol Use Standard Drinks/Week Comments No 0 (1 standard drink = 0.6 oz pur e alcohol) Sex and Gender Information Value Date Recorded Sex Assigned at Not on file Legal Sex Male 10:38 AM [facility] Gender Identity Not on file Sexual Orientation Not on file documented as of this encounter Plan of Treatment Not on file documented as of this encounter Visit Diagnoses Not on filedocumented in this encounter Care Teams Exhaust And Muffler Repairer Relationship Specialty Start Date End Date Ubaldo Spring MD PCP - General Family Medicine 09/20/17 08/02/21 Romero Lieca MD [address] [place] [address] PCP - General Family Medicine 08/03/21 Shana Mike NP [address] [place] [address] Nurse Practitioner Physical Medicine and Rehabilitation 11/15/22 Julius Canseco MD [address] [place] [address] Consulting Physician Physical Medicine and Rehabilitation 04/11/23 documented as of this encounter
== END 2025-01-08 15:40 | disposition home or self-care (01) ==
LOC: HO.HPSW 15:08
PROVIDERS: PCP Physician Assistant; Visit Provider Nurse Practitioner Family
DX: J44.9 Chronic obstructive pulmonary disease, unspecified (principal); R06.00 Dyspnea, unspecified; Z91.09 Other allergy status, other than to drugs and biological substances
CPT/HCPCS: 99204

== ENCOUNTER → 2025-01-08 15:07 | Outpatient (BNVA) | payer MEDICARE, SELFPAY | PROVIDERS: PCP Physician Assistant; Visit Provider Nurse Practitioner Family | DX: R06.02 Shortness of breath (principal); J44.9 Chronic obstructive pulmonary disease, unspecified; R06.00 Dyspnea, unspecified; Z91.09 Other allergy status, other than to drugs and biological substances | CPT/HCPCS: 99202 ==

== ENCOUNTER 2025-01-08 15:48 | Outpatient (REF) | payer MEDICARE, SELFPAY ==
[2025-01-11 12:23] LABS: Class Alternaria alternata 0; Class Aspergillus fumigatus 0; Class Bermuda Grass 0; Class Birch 0; Class Cat Dander 0; Class Cladosporium herbarum 0; Class Cockroach 0; Class Common Ragweed 0; Class Cottonwood 0; Class Derm. pterony 0; Class Dermatophagoides farinae 0; Class Dog Dander 0; Class Elm 0; Class Maple Box Elder 0; Class Mountain Cedar 0; Class Mouse Urine Protein 0; Class Mugwort 0; Class Oak 0; Class Penicillium crysogenum 0; Class Rough Pigweed 0; Class Sheep Sorrel 0; Class Sycamore 0; Class Timothy Grass 0; Class Walnut Tree 0; Class White Ash 0; Class White Mulberry 0; D002 - IgE D farinae <0.10 kU/L; E001 - IgE Cat Dander <0.10 kU/L; E005 - IgE Dog Dander <0.10 kU/L; G006 - IgE Timothy Grass <0.10 kU/L; I006-IgE Cockroach, German <0.10 kU/L; M002 - IgE Cladosporium herbar <0.10 kU/L; M003 - IgE Aspergillus fumigat <0.10 kU/L; M006 - IgE Alternaria alternat <0.10 kU/L; T001 IgE Maple/Box Elder <0.10 kU/L; T006 - IgE Cedar, Mountain <0.10 kU/L; T007 - IgE Oak, White <0.10 kU/L; T008 IgE Elm, American <0.10 kU/L; T010 - IgE Walnut <0.10 kU/L; T011 - IgE Maple Leaf Sycamore <0.10 kU/L; T014 - IgE Cottonwood <0.10 kU/L; T015 - IgE Ash, White <0.10 kU/L; T070 - IgE White Mulberry <0.10 kU/L; W001 - IgE Ragweed, Short <0.10 kU/L; W006 - IgE Mugwort <0.10 kU/L; W014 IgE Pigweed, Common <0.10 kU/L; W018 IgE Sheep Sorrel <0.10 kU/L
== END 2025-01-08 15:49 | disposition home or self-care (01) ==
LOC: HO.WFDLDS 15:48
PROVIDERS: Visit Provider Nurse Practitioner Family
DX: Z91.09 Other allergy status, other than to drugs and biological substances (principal)
CPT/HCPCS: 36415; 82785; 86003

== ENCOUNTER 2025-02-06 10:52 | Outpatient (AMB) | payer MEDICARE, SELFPAY ==
--- NOTE | 2025-02-06 11:03 | MHC.OFFVIS ---
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 blood-glucose,corn popper,cont (FreeStyle Charlie 3 [place]) Use daily to monitor blood glucose levels continuously. dulaglutide (Trulicity) 3 mg (0.5 mL) subcut QWEEK escitalopram oxalate 10 mg PO DAILY ferrous gluconate 324 mg PO DAILY fluticasone furoate-vilanterol 100-25 mcg/dose (Breo Ellipta) 1 inh inhalation DAILY gabapentin 300 mg PO TID glucose (Dex4 Glucose Quick Dissolve) 16 grams (4 x 4 gram) PO Q15M PRN insulin glargine (Lantus Solostar U-100 Insulin) 20 units subcut QPM lisinopril 40 mg PO DAILY metformin 1,000 mg PO BID pen needle, diabetic Use BID As directed tiotropium bromide (Spiriva with HandiHaler) 1 cap inhalation DAILY trazodone 50 mg PO BEDTIME HPI Comments Details: The patient is a 69-year-old male presenting for cardiovascular evaluation and management of existing conditions. The patient has a history of coronary artery disease with stent placement performed several years ago in [place], [place]. He does not recall the exact circumstances leading to the procedure but mentions experiencing significant shortness of breath and failing a treadmill test, which led to the intervention. Currently, he reports no chest pain and is able to perform activities such as walking and climbing stairs without difficulty. The patient has a history of diabetes mellitus and hypertension, both of which are reportedly controlled. He admits to inconsistent adherence to aspirin therapy, which is crucial due to his history of stent placement. The patient also has a history of Chronic Obstructive Pulmonary Disease (COPD), which he attributes to lifelong exposure to secondhand smoke rather than personal smoking habits. He experienced gastrointestinal bleeding following a colonoscopy three years ago, which led to the discontinuation of Plavix. He is scheduled for another colonoscopy in the coming months. [facility] Medical History (Updated 02/06/25 @ 11:27 by Immanuel Nguyen MD) Weight loss Hyperlipidemia Diabetes High blood pressure Surgical History Hx of heart artery stent Family History (Updated 02/06/25 @ 11:16 by Nilsa Gay) Father History of quadruple bypass Lung cancer Mother No problems noted. Social History (Updated 02/06/25 @ 11:16 by Nilsa Gay) Housing: House Housing Other:: Lives with [facility]. Normally lived in an , but is currently in the shop Alcohol intake: never Patient Tobacco Use Status: Never used Tobacco e-Cigarette/Vaping Use: Never Used Second Hand Smoke Exposure: Yes service: No Current occupational status: retired Cognitive needs: No Hearing needs: Yes (Hearing aids. Did not put them in today. ) Vision needs: No Review of Systems Const Denies weakness ENT Denies dizziness Card Denies chest pain, Denies chest pain with activity, Denies syncope, Denies rapid heart rate, Denies pedal edema, Denies edema, Denies leg edema, Denies lightheadedness, Denies palpitations, Denies dyspnea, Denies dyspnea on exertion and Denies orthopnea Resp Denies cough, Denies dyspnea and Denies dyspnea on exertion GI Denies hematochezia and Denies change in stool character Musc Denies abnormal gait, Denies muscle cramps, Denies muscle weakness, Denies numbness, Denies radiating pain into limb and Denies tingling Neuro Denies abnormal gait, Denies dizziness, Denies syncope, Denies numbness, Denies tingling and Denies weakness Endo Denies palpitations Physical Exam Vital Signs: Last Vital Signs Pulse 85 02/06/25 11:05 BP 120/60 02/06/25 11:05 BMI result Body Mass Index 25.7 Const General: comfortable and no acute distress Orientation/consciousness: patient oriented x3 HEENT Other: Unremarkable Head: Yes normal to inspection Neck Neck: Yes normal visual inspection Chest Chest palpation & inspection: normal inspection of the chest Resp Auscultation: clear to auscultation bilaterally Cardio Palpation: normal PMI Heart sounds: S1 normal heart sound present, S2 normal heart sound present, no gallops, no murmurs and no rubs GI Palpation (GI): Soft to palpation Back/Spine/Pelvis Other: unremarkable Skin General skin exam: no rashes or lesions noted Neuro General: patient oriented x3 Extrem General: Yes normal to inspection Psych Mental Status: mental status grossly normal Office Procedures EKG Details: EKG with underlying sinus rhythm at 85/Min; no ischemic changes; [place]. [address]-Mqiduwwrxkactgjya, Complete Assessment & Plan Assessment & Plan (1) CAD (coronary artery disease): Code(s): I25.10 - Atherosclerotic heart disease of [place] coronary artery without angina pectoris Category: Medical Qualifiers: Associated angina: without angina Coronary Disease-Associated Artery/Lesion type: [place] artery [place] vs. transplanted heart: [place] heart Qualified Code(s): I25.10 - Atherosclerotic heart disease of [place] coronary artery without angina pectoris Plan The patient should resume consistent aspirin therapy to prevent stent complications, given his history of coronary artery disease and stent placement. A heart ultrasound is recommended to assess cardiac function and establish a baseline for future evaluations. The patient should continue monitoring his diabetes and hypertension, ensuring they remain controlled. Discussion Notes I discussed with the patient the importance of resuming aspirin therapy to prevent complications related to his coronary stents. We also talked about scheduling a heart ultrasound to evaluate his cardiac status. I advised him to maintain control over his diabetes and hypertension. Patient was informed and verbally consented to the use of an ambient scribe for clinic note documentation during this visit. 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 Orders: Orders CA echo transthoracic complete Today I25.10 - Atherosclerotic heart disease of [place] coronary artery without angina pectoris Patient Instructions: - Take aspirin daily as prescribed to prevent stent complications. - Schedule and attend a heart ultrasound to check heart health. - Keep monitoring blood sugar and blood pressure levels. Coding Level of Care Code New Pt Level 3 (72771) Diagnoses Coronary artery disease involving [place] coronary artery of [place] heart without angina pectoris I25.10 Associated angina: without angina Coronary Disease-Associated Artery/Lesion type: [place] artery [place] vs. transplanted heart: [place] heart CPT Codes EKG - CPT: 83171-[id number], Complete ([id number])
[2025-02-06 11:05] VITALS: BP 120/60; PULSE 85; BMI 25.7
--- OUTSIDE RECORDS SUMMARY | 2025-02-06 11:54 | XMS_ITS | Encounter Summary ---
Author Organization [facility] Address [address] [place] [address] Care Team Providers Care Chief Environmental Commitment Officer Name Role Phone Ubaldo Spring MD Primary Care Provider + [phone] Romero Licea MD Primary Care Provi clifton Shana Mike NP Unavailable [phone] Julius Canseco MD Unavailable Encounter Details Date Type Department Care Team (Late st Contact Info) Description 09/23/2017 Procedure Pass [facility] Endoscopy [address] [place] [address] Social History Tobacco Use Types Packs/Day Years Used Date Smoking Tobacco: Former Cigarettes 2 10 2 - 2010 Smokeless Tobacco: Never Alcohol Use Standard Drinks/Week Comments No 0 (1 standard drink = 0.6 oz pur e alcohol) Sex and Gender Information Value Date Recorded Sex Assigned at Not on file Legal Sex Male 10:38 AM [facility] Gender Identity Not on file Sexual Orientation Not on file documented as of this encounter Plan of Treatment Not on file documented as of this encounter Visit Diagnoses Not on filedocumented in this encounter Care Teams Chief Environmental Commitment Officer Relationship Specialty Start Date End Date Ubaldo Spring MD PCP - General Family Medicine 09/20/17 08/02/21 Romero Licea MD [address] [place] [address] PCP - General Family Medicine 08/03/21 Shana Mike NP [address] [place] [address] Nurse Practitioner Physical Medicine and Rehabilitation 11/15/22 Julius Canseco MD [address] [place] [address] Consulting Physician Physical Medicine and Rehabilitation 04/11/23 documented as of this encounter
--- OUTSIDE RECORDS SUMMARY | 2025-02-06 11:54 | XMS_ITS | Encounter Summary ---
Author Organization [facility] Address [address] [place] [address] Care Team Providers Care Provisioning Specialist Name Role Phone Shanae Zarate MD Unavailable Renee Mora DO Primary Care Provider [phone] Reason for Visit * Reason Comments Med Refill Encounter Details Date Type Department Care Team (Late st Contact Info) Description 06/23/2024 Refill [facility] [address] [place] [address] [place] [address] [place] [address] [address] [place] [address] Diabetic polyneuropathy associated with type 2 diabetes mellitus ([facility]/HCC) Social History Tobacco Use Types Packs/Day Years [...] any clubs o r organizations such as gnosticist groups, unions, fraternal or athletic groups, or [...] 0 [facility] - Occupational Stress Questionnaire Answer Date [...] (CMS/HCC) documented in this encounter Care Teams Provisioning Specialist Relationship Specialty Start Date End Date Renee Mora DO [address] [place] [address] PCP - General Family Medicine 06/04/24 Shanae Zarate MD [address] [place] [address] Consulting Physician Cardiology 10/13/20 documented as of this encounter
== END 2025-02-06 11:29 | disposition home or self-care (01) ==
LOC: HO.HCS 10:52
PROVIDERS: PCP Physician Assistant; Visit Provider Internal Medicine
DX: I25.10 Atherosclerotic heart disease of native coronary artery without angina pectoris (principal)
CPT/HCPCS: 93010; 99203

== ENCOUNTER → 2025-02-06 10:52 | Outpatient (BNVA) | payer MEDICARE, SELFPAY | PROVIDERS: PCP Physician Assistant; Visit Provider Internal Medicine | DX: I25.10 Atherosclerotic heart disease of native coronary artery without angina pectoris (principal); I10 Essential (primary) hypertension; J44.9 Chronic obstructive pulmonary disease, unspecified; E11.9 Type 2 diabetes mellitus without complications | CPT/HCPCS: 93005; 99202 ==

== ENCOUNTER 2025-02-19 13:59 | Outpatient (AMB) | payer MEDICARE, SELFPAY ==
[2025-02-19 14:10] VITALS: BP 130/78; PULSE 85; O2SAT 97; BMI 25.9
--- NOTE | 2025-02-19 14:10 | A.OFFVIS_ITS ---
Vital Signs 02/19/25 14:10 Height 5 ft 9 in Weight 175 lb 8 oz BMI 25.9 BP 130/78 Blood Pressure Location Rt brachial Position Sitting Pulse 85 Pulse Source Pulse Oximeter Pulse Oximetry (%) 97 Oxygen Delivery Method Room Air Intake Visit Reasons: COPD Allergies Seasonal Allergies Allergy (Mild, Verified 02/19/25 14:15) sneezing HPI HPI COPD: Details: Kvng is pleasant 69 year old male, never smoker, mild COPD, DMII, HIV and CAD. Previously patient reported suboptimal control on Spiriva with persistent dyspnea, wheezing and cough. At the last visit patient was treated for exacerbation with prednisone and Breo was added to regimen with moderate improvement in dyspnea. Today he reports ongoing productive cough now with green sputum and wheezing with associated chest congestion. Denies fevers or chills. Patient had CXR performed through [facility] on 01/10 which was only obtained today which revealed developing RML PNA vs atelectasis. Today he presents to review [facility] Medical History (Updated 02/06/25 @ 11:27 by Immanuel Nguyen MD) Weight loss Hyperlipidemia Diabetes High blood pressure Surgical History Hx of heart artery stent Family History (Updated 02/06/25 @ 11:16 by Nilsa Gay) Father History of quadruple bypass Lung cancer Mother No problems noted. Social History Housing: House Housing Other:: Lives with [facility]. Normally lived in an , but is currently in the shop Alcohol intake: never Patient Tobacco Use Status: Never used Tobacco e-Cigarette/Vaping Use: Never Used Second Hand Smoke Exposure: Yes service: No Current occupational status: retired Cognitive needs: No Hearing needs: Yes (Hearing aids. Did not put them in today. ) Vision needs: No Review of Systems Const Denies chills, Denies excessive sweating, Denies fever(s), Denies headache(s) and Denies night sweats Eyes Denies dry eyes, Denies irritation and Denies itchy eyes ENT Reports Normal hearing present, Denies headache(s), Denies nasal congestion, Denies nasal discharge, Denies post nasal drip and Denies sore throat Card Denies chest pain, Denies chest pain at rest, Denies chest pain with activity, Denies claudication, Denies leg edema, Reports dyspnea on exertion, Denies orthopnea and Denies paroxysmal nocturnal dyspnea Resp Reports change in phlegm color, Reports chest congestion, Reports cough, Denies hemoptysis, Denies excessive phlegm production, Denies pain on inspiration, Denies pain with cough, Reports dyspnea on exertion, Denies stridor and Reports wheezing Musc Denies myalgias Neuro Reports Normal hearing present and Denies headache(s) Endo Denies excessive sweating Constantine/Lymph Denies lymphadenopathy Aller/Immun Denies itchy eyes, Denies seasonal rhinorrhea and Reports wheezing Physical Exam Vital Signs: Last Vital Signs Pulse 85 02/19/25 14:10 BP 130/78 02/19/25 14:10 Pulse Ox 97 02/19/25 14:10 Oxygen Delivery Method Room Air 02/19/25 14:10 BMI result Body Mass Index 25.9 Const General: cooperative, healthy appearing, comfortable, no acute distress, well developed and alert Orientation/consciousness: patient oriented x3 Limitations: no limitations HEENT Head: Yes normal to inspection, Yes normocephalic and Yes atraumatic Ears: external ears normal Eyes General: appearance normal, both eyes and all related structures Eyelids: Yes eyelids normal Sclerae: sclerae normal EOM: EOMs intact bilaterally Neck Neck: Yes normal visual inspection and Yes no lymphadenopathy Lymphatic: no lymphadenopathy noted Chest Chest palpation & inspection: normal inspection of the chest Resp Effort & Inspection: normal respiratory effort, able to speak in complete sentences, no audible wheezes, no cough, no stridor, not tachypneic, no tripod positioning and no use of accessory muscles Auscultation: wheezes and diminished lung sounds Cardio Jugular venous distension: no JVD Rate: regular rate Rhythm: regular rhythm Skin Other: warm, dry General skin exam: no rashes or lesions noted Neuro General: patient oriented x3 Cranial nerves: Yes Normal hearing present Cognition (Neuro): normal cognition Gait exam (Neuro): Normal gait present Extrem General: Yes normal to inspection, Yes capillary refill normal, Yes no clubbing, cyanosis or edema and Yes no pedal edema Psych Appearance: grossly normal and well kempt Speech and movement: Normal speech and movement present and Clear speech present Affect: normal affect Attitude: cooperative Thought process: Normal thought process present Thought content: Normal thought content present Insight: Good insight present (Psych) Judgement: Good judgement present (Psych) Office Procedures Nebulizer Treatment Nebulizer Treatment [id number]/MDI RX initial, or Nebulizer Subsequent Treatment Office Meds ipratropium 0.5 mg-albuterol 3 mg (2.5 mg base)/3 mL nebulization soln Performing Provider: Maria Isabel Ortiz NP Performing Location: [facility] Pulmonology Services-[facility] Administered by: Luh Poon LPN on 02/19/25 14:37 Dose Route Admin Location Dispensed Lot Number Expiration Date [facility] Relay Mechanic 3 mL inhalation 3 mL [id number] 04/09/26 35861-018-17 [employer] Results Reviewed Results Reviewed: RESULT: Chest 2 Views Frontal and Lat PA and lateral chest dated January 10, 2025. No prior studies are available. HISTORY: Dyspnea. FINDINGS: Cardiac silhouette is within normal limits for size. Mural calcifications are present in the aorta. There is some minimal developing infiltrate in the right middle lobe. The left lung is clear. There is a 5 mm metallic foreign body noted in the soft tissues of the anterior chest on the left. Degenerative changes are noted in the spine. There is mild anterior wedging of T8. IMPRESSION: Findings are consistent with developing right middle lobe atelectasis or pneumonia. Anterior wedging of T8 which may be subacute or chronic. Correlation with any point tenderness is recommended. Examination [id number]. Thank you for allowing me to participate in the care of this patient. WSN: [id number] Ordering Physician: Maria Isabel Ortiz Reason For Exam dyspnea Assessment & Plan Assessment & Plan (1) COPD (chronic obstructive pulmonary disease): Code(s): J44.9 - Chronic obstructive pulmonary disease, unspecified Category: Medical (2) Dyspnea: Code(s): R06.00 - Dyspnea, unspecified Category: Medical (3) Environmental allergies: Code(s): Z91.09 - Other allergy status, other than to drugs and biological substances Category: Medical Plan Will treat for bronchopneumonia with prednisone and Cefpodoxime. He is aware to contact us sooner if symptoms do not improve or seek emergent care if symptoms worsen. Improvement after nebulized therapy, will send for home use. Advised to continue Spiriva, Breo and albuterol MDI PRN. Will repeat CXR to assess for resolution after next visit. All questions were answered and patient is in agreement of plan. We will follow up in 6-8 weeks or sooner if needed. Orders: Orders AMB Nebulizer Treatment Today J44.9 - Chronic obstructive pulmonary disease, unspecified, R06.00 - Dyspnea, unspecified Medications: New ipratropium-albuterol 0.5 mg-3 mg(2.5 mg base)/3 mL 3 mL inhalation Q6H PRN 180 mL 0RF wheezing J44.9 - Chronic obstructive pulmonary disease, unspecified cefpodoxime must administer with a meal/food 200 mg PO BID 20 tabs 0RF prednisone see taper instructions 20 mg x 5 days, followed by 10 mg x 5 days 10 mg PO DIRECTED 15 tabs 0RF Coding Level of Care Code Est Pt Level 4 (01079) Diagnoses COPD (chronic obstructive pulmonary disease) J44.9 Dyspnea R06.00 Environmental allergies Z91.09 CPT Codes Nebulizer Treatment - Nebulizer Treatment, initial or subsequent: 34180- Nebulizer/MDI RX initial, or Nebulizer Subsequent Treatment ([id number])
--- OUTSIDE RECORDS SUMMARY | 2025-02-19 15:02 | XMS_ITS | Encounter Summary ---
Author Organization [facility] Address [address] [place] [address] Care Team Providers Care Steel Pourer Name Role Phone Ubaldo Spring MD Primary Care Provider + [phone] Romero Licea MD Primary Care Provi clifton Shana Mike NP Unavailable [phone] Julius Canseco MD Unavailable Encounter Details Date Type Department Care Team (Late st Contact Info) Description 09/23/2017 Procedure Pass [facility] Endoscopy [address] [place] [address] Social History Tobacco Use Types [...] on filedocumented in this encounter Care Teams Steel Pourer Relationship Specialty Start Date End Date Ubaldo Spring MD PCP - General Family Medicine 09/20/17 08/02/21 Romero Licea MD [address] [place] [address] PCP - General Family Medicine 08/03/21 Shana Mike NP [address] [place] [address] Nurse Practitioner Physical Medicine and Rehabilitation 11/15/22 Julius Canseco MD [address] [place] [address] Consulting Physician Physical Medicine and Rehabilitation 04/11/23 documented as of this encounter
--- OUTSIDE RECORDS SUMMARY | 2025-02-19 15:02 | XMS_ITS | Encounter Summary ---
Author Organization [facility] Address [address] [place] [address] Care Team Providers Care Hoop Maker Helper Machine Name Role Phone Shanae Zarate MD Unavailable Renee Mora DO Primary Care Provider Reason for Visit * Reason Comments Med Refill Encounter Details Date Type Department Care Team (Late st Contact Info) Description 06/23/[address] [facility] [address] [place] [address] [place] [address] [place] [address] [address] [place] [address] Diabetic polyneuropathy associated with type 2 diabetes mellitus ([facility]/HCC) Social History Tobacco Use Types [...] often do you attend chur ch or mormonism services? Patient declined 07/21/2022 Do you belong to any clubs o r organizations such as mormon groups, unions, fraternal or athletic groups, or [...] (PHQ2) Score 0 [facility] - Occupational Stress Questionnaire Answer Date Recorded [...] polyneuropathy associated with type 2 diabetes mellitus (CMS/[facility]) documented in this encounter Additional Health Concerns Assessment Noted Time PHQ-9 Depression Total Score: 0 07/01/20 1:59 PM MST PHQ-2 Depression Total Score: 0 07/01/20 1:59 PM MST documented as of this encounter Care Teams Hoop Maker Helper Machine Relationship Specialty Start Date End Date Renee Mora DO [address] [place] [address] PCP - General Family Medicine 06/04/24 Shanae Zarate MD [address] [place] [address] Consulting Physician Cardiology 10/13/20 documented as of this encounter
== END 2025-02-19 14:46 | disposition home or self-care (01) ==
LOC: HO.HPSW 14:00
PROVIDERS: PCP Physician Assistant; Visit Provider Nurse Practitioner Family
DX: J44.9 Chronic obstructive pulmonary disease, unspecified (principal); R06.00 Dyspnea, unspecified; Z91.09 Other allergy status, other than to drugs and biological substances
CPT/HCPCS: 99214

== ENCOUNTER → 2025-02-19 13:59 | Outpatient (BNVA) | payer MEDICARE, SELFPAY | PROVIDERS: PCP Physician Assistant; Visit Provider Nurse Practitioner Family | DX: J44.9 Chronic obstructive pulmonary disease, unspecified (principal); R06.00 Dyspnea, unspecified; Z91.09 Other allergy status, other than to drugs and biological substances | CPT/HCPCS: 94640; 99212 ==

== ENCOUNTER 2025-02-27 10:56 | Outpatient (AMB) | payer MEDICARE, SELFPAY ==
--- NOTE | 2025-02-27 11:00 | A.OFFPC_ITS ---
Vital Signs 02/27/25 11:03 Height 5 ft 9 in Weight 182 lb BMI 26.9 BP 136/62 Blood Pressure Location Lt brachial Position Sitting Respiration 16 Pulse 68 Pulse Source Pulse Oximeter Temp 98.1 F Temp Source Oral Pulse Oximetry (%) 95 Oxygen Delivery Method Room Air Intake Visit Reasons: dm, htn Intake Note: Follow up diabetes/htn. Needs refill on Spiriva. Requesting medication in regards to bone density. Was taking Alendronate while in [place], was d/c 06/06/2024 Human Resources Benefits Administrator Required: No Allergies Seasonal Allergies Allergy (Mild, Verified 02/19/25 14:15) sneezing Medication List - Last Reconciled 02/27/25 by Mirina Bermudez PA-C albuterol sulfate 90 mcg/actuation 2 puffs inhalation Q6H PRN albuterol sulfate 2.5 mg inhalation Q4-6H PRN aspirin (Adult Aspirin Regimen) 81 mg PO DAILY atorvastatin 40 mg PO BEDTIME qpbekpnkv-szzhgemn-bigswat ala (Biktarvy) PO blood-glucose sensor ([employer]Style Charlie 3 Plus Sensor device) Apply 1 new sensor every 15 days as directed to monitor blood glucose continuously. blood-glucose,drawer in dobby loom,cont (FreeStyle Charlie 3 Ovalo) Use daily to monitor blood glucose levels continuously. cefpodoxime 200 mg PO BID dulaglutide (Trulicity) 3 mg (0.5 mL) subcut QWEEK escitalopram oxalate 10 mg PO DAILY ferrous gluconate 324 mg PO DAILY fluticasone furoate-vilanterol 100-25 mcg/dose (Breo Ellipta) 1 inh inhalation DAILY gabapentin 300 mg PO TID glucose (Dex4 Glucose Quick Dissolve) 16 grams (4 x 4 gram) PO Q15M PRN insulin glargine (Lantus Solostar U-100 Insulin) 20 units subcut QPM ipratropium-albuterol 0.5 mg-3 mg(2.5 mg base)/3 mL 3 mL inhalation Q6H PRN lisinopril 40 mg PO DAILY metformin 1,000 mg PO BID pen needle, diabetic Use BID As directed prednisone 10 mg PO DIRECTED tiotropium bromide (Spiriva with HandiHaler) 1 cap inhalation DAILY trazodone 50 mg PO BEDTIME Tobacco use date assessed: 04/09/25 Dental Screening Dental Screen Date: 10/17/24 HPI dm, htn HPI Details Pt is a 69 y/o male who presents today for a follow up. He has a hx of HIV, dyslipidemia, htn, CAD s/p stents, colon polyps, and t2dm. Forgot to mention he has a hx of osteoporosis and a few years ago was on a medication for this. He can not recall the name of the medication but thinks he had a bone density because he fell and was noted to possibly have osteoporosis on imaging. CV: He is following with Cardiology locally and is supposed to have an echo. He is on lisinopril 40 mg and bp today is 126/72. He is on atorvastatin 40 mg for cholesterol management. Endo: He states he is a t2dm and was dx around 1989. He is on lantus 20 units nightly, metformin 1000 mg bid, and Trulicity 3 mg weekly. No low blood sugars. His last A1c was 6. -he is using his CGM and denies any hypo glycemic events. He is overall doing well with this regimen. When he saw endocrinology he did complain of some we ight loss but tells me that now the weight is back up and he thinks it is stable. He thinks that he initially lost a couple lb because of the Trulicity adjustment. States his appetite is fine and he is overall feeling well. -He has tried actos but caused hypoglyce ramila ID: on Biktarvy. He was dx around 2009. Following with [facility] Infectious Disease. Psych: He is on lexapro 10 mg and trazodone. tolerating trazodone well and feels that it is helpful. No SI/HI Heme: On iron and tolerating this well. Booked with GI for a consultation as he has overdue for a colonoscopy. He is scheduled with GI on 03/19. Colonoscopy: has polyps overdue-states that they were calling him to schedule it this year. PSA: [facility] Medical History (Updated 02/27/25 @ 11:34 by Mirian Bermudez PA-C) Weight loss Hyperlipidemia Diabetes High blood pressure Surgical History Hx of heart artery stent Family History Father History of quadruple bypass Lung cancer Mother No problems noted. Social History (Updated 02/27/25 @ 11:17 by Chasity Meneses CMA) Housing: House Housing Other:: Lives with melina. Normally lived in an RV, but is currently in the shop Alcohol intake: never Patient Tobacco Use Status: Never used Tobacco e-Cigarette/Vaping Use: Never Used Second Hand Smoke Exposure: Yes service: No Current occupational status: retired Cognitive needs: No Hearing needs: Yes (Hearing aids. Did not put them in today. ) Vision needs: No Questionnaire Thrive Questionnaire Date Thrive assessed: 10/17/24 I am a: Patient What is your living situation today?: I have a steady place to live Within the past 12 months, did the food you bought not last and you didn't have the money to get more?: Sometimes True Within the past 12 months, did you worry whether your food would run out before you got money to buy more?: Sometimes True Do you have trouble paying for medicines?: Yes Do you have trouble getting transportation to medical appointments?: No Do you have trouble paying your heating and electricity bill?: Yes Do you have trouble taking care of your child, family member or friend?: No Do you have trouble with day-to-day activities such as bathing, preparing meals, shopping, managing finances, etc.?: No Are you currently unemployed and looking for a job?: No Are you interested in more education?: No Currently or been in a relationship where the following occur: No concerns reported THRIVE Score: 3 EDIS-7 AMB Questionnaire EDIS-7 Date EDIS - 7 assessed: 10/17/24 Source: Developed by Drs. Kvng Viera, Zonia Schilling, Chandra Torres and colleagues, with an educational joss from [facility]. Physical exam (Primary Care) Vital Signs: Last Vital Signs Temp 98.1 F 02/27/25 11:03 Pulse 68 02/27/25 11:03 Resp 16 02/27/25 11:03 BP 136/62 02/27/25 11:03 Pulse Ox 95 02/27/25 11:03 Oxygen Delivery Method Room Air 02/27/25 11:03 BMI result Body Mass Index 26.9 Tobacco/Smoking Status: Tobacco use Status Tobacco use date assessed 10/17/24 02/27/25 11:06 Patient Tobacco Use Status Never used Tobacco 02/27/25 11:17 e-Cigarette/Vaping Use Never Used 02/27/25 11:17 Thrive Assessment: Date of Thrive Assessment Date Thrive assessed 10/17/24 02/27/25 11:06 Currently or been in a relationship where the following occur: No concerns reported Const Orientation/consciousness: patient oriented x3 HENMT Ears: hearing grossly normal bilaterally Neck Thyroid: Thyroid normal Lymphatic: no lymphadenopathy noted Resp Auscultation: clear to auscultation bilaterally Cardio Rate: regular rate Rhythm: regular rhythm Heart sounds: S1 normal heart sound present and S2 normal heart sound present GI Inspection: Yes normal to inspection Palpation (GI): Soft to palpation and Other GI palpation findings present (nontender, no cva tenderness) Auscultation: normoactive bowel sounds Rectal Exam - Male: Yes deferred Skin General skin exam: no rashes or lesions noted Neuro General: patient oriented x3, gait normal and no focal motor deficits Results Reviewed Results Reviewed: Laboratory Tests 11/21/24 12/18/24 12/18/24 11:37 11:14 11:18 WBC 5.8 RBC 4.56 L Hgb 12.7 L Hct 40.1 L Plt Count 228 Glucose (Clinic) 149 H Hgb A1c (Clinic) 6.0 Coding Level of Care Code Est Pt Level 4 (79212) Complex EM visit Add On G2211 Diagnoses Osteoporosis M81.0 High blood pressure I10 COPD (chronic obstructive pulmonary disease) J44.9 Anemia D64.9 Assessment & Plan Assessment & Plan (1) Osteoporosis: Code(s): M81.0 - Age-related osteoporosis without current pathological fracture Category: Medical Plan: Bone density ordered (2) High blood pressure: Code(s): I10 - Essential (primary) hypertension Category: Medical Plan: wnl continue current plan (3) COPD (chronic obstructive pulmonary disease): Code(s): J44.9 - Chronic obstructive pulmonary disease, unspecified Category: Medical Plan: stable/improved (4) Anemia: Code(s): D64.9 - Anemia, unspecified Category: Medical Plan: on iron cbc ordered Booked with GI. We will follow up pending test results. Orders: Orders XR DEXA axial skeleton 02/27/25 M81.0 - Age-related osteoporosis without current pathological fracture Basic Metabolic Panel 02/27/25 D64.9 - Anemia, unspecified, I10 - Essential (primary) hypertension, J44.9 - Chronic obstructive pulmonary disease, unspecified, M81.0 - Age-related osteoporosis without current pathological fracture, Z21 - Asymptomatic human immunodeficiency virus [HIV] infection status Lipid Panel 02/27/25 D64.9 - Anemia, unspecified, I10 - Essential (primary) hypertension, J44.9 - Chronic obstructive pulmonary disease, unspecified, M81.0 - Age-related osteoporosis without current pathological fracture, Z21 - Asymptomatic human immunodeficiency virus [HIV] infection status UA CC w/rflx Micro + Cult 02/27/25 D64.9 - Anemia, unspecified, I10 - Essential (primary) hypertension, J44.9 - Chronic obstructive pulmonary disease, unspecified, M81.0 - Age-related osteoporosis without current pathological fracture, R30.0 - Dysuria, Z21 - Asymptomatic human immunodeficiency virus [HIV] infection status Vitamin D 25-OH Total 02/27/254.9 - Anemia, unspecified, I10 - Essential (primary) hypertension, J44.9 - Chronic obstructive pulmonary disease, unspecified, M81.0 - Age-related osteoporosis without current pathological fracture, Z21 - Asymptomatic human immunodeficiency virus [HIV] infection status Complete Blood Count Auto Diff 02/27/25 D64.9 - Anemia, unspecified, I10 - Essential (primary) hypertension, J44.9 - Chronic obstructive pulmonary disease, unspecified, M81.0 - Age-related osteoporosis without current pathological fracture, Z21 - Asymptomatic human immunodeficiency virus [HIV] infection status IRON PROFILE 02/27/25 D64.9 - Anemia, unspecified, I10 - Essential (primary) hypertension, J44.9 - Chronic obstructive pulmonary disease, unspecified, M81.0 - Age-related osteoporosis without current pathological fracture, Z21 - Asymptomatic human immunodeficiency virus [HIV] infection status Ferritin 02/27/25 D64.9 - Anemia, unspecified, I10 - Essential (primary) hypertension, J44.9 - Chronic obstructive pulmonary disease, unspecified, M81.0 - Age-related osteoporosis without current pathological fracture, Z21 - Asymptomatic human immunodeficiency virus [HIV] infection status
[2025-02-27 11:03] VITALS: BP 136/62; PULSE 68; RESP 16; TEMP 36.7; O2SAT 95; BMI 26.9
--- OUTSIDE RECORDS SUMMARY | 2025-02-27 12:18 | XMS_ITS | Encounter Summary ---
Author Organization [facility] Address [address] [place] [address] Care Team Providers Care Chicken Raiser Name Role Phone Shanae Zarate MD Unavailable Renee Mora DO Primary Care Provider [phone] Reason for Visit * Reason Comments Med Refill Encounter Details Date Type Department Care Team (Late st Contact Info) Description 06/23/2024 Refill [facility] [address] [place] [address] [place] [address] [place] [address] [address] [place] [address] Diabetic polyneuropathy associated with type 2 diabetes mellitus ([facility]/HCC) Social History Tobacco Use Types [...] often do you attend chur ch or synagogue services? Patient declined 07/21/2022 Do you belong to any clubs o r organizations such as jewish groups, unions, fraternal or athletic groups, or [...] Date Recorded Depression Risk (PHQ2) Score 0 [facility] - Occupational Stress Questionnaire Answer Date [...] encounter Miscellaneous Notes * Telephone Encounter - Jeffyr Baltazar CPHT - 06/26/2024 9:31 AM MST RFA TEAM MEDICATION REQUEST DOES NOT MEET PROTOCOL GUIDELINES. REASON: -FORMER RACHELL PT. HAS NOT EST CARE WITH NEW PROVIDER LAST VISIT DATE: 07/01/2023 documented in this encounter Plan of Treatment Not on file documented as of this encounter Visit Diagnoses Diagnosis Diabetic polyneuropathy associated with type 2 diabetes mellitus (CMS/[facility]) documented in this encounter Additional Health Concerns Assessment Noted Time PHQ-9 Depression Total Score: 0 07/01/20 1:59 PM MST PHQ-2 Depression Total Score: 0 07/01/20 1:59 PM MST documented as of this encounter Care Teams Chicken Raiser Relationship Specialty Start Date End Date Renee Mora DO [address] [place] [address] PCP - General Family Medicine 06/04/24 Shanae Zarate MD [address] [place] [address] Consulting Physician Cardiology 10/13/20 documented as of this encounter
--- OUTSIDE RECORDS SUMMARY | 2025-02-27 12:18 | XMS_ITS | Encounter Summary ---
Author Organization [facility] Address [address] [place] [address] Care Team Providers Care Furniture Polisher Name Role Phone Ubaldo Spring MD Primary Care Provider [phone] Romero Licea MD Primary Care Provi clifton Shana Mike NP Unavailable [phone] Julius Canseco MD Unavailable Encounter Details Date Type Department Care Team (Late st Contact Info) Description 09/23/2017 Procedure [facility] [address] [place] [address] Social History Tobacco Use Types Packs/Day Years Used Date Smoking Tobacco: Former Cigarettes 2 10 2 - 2010 Smokeless Tobacco: Never Alcohol Use Standard Drinks/Week Comments No 0 (1 standard drink = 0.6 oz pur e alcohol) Sex and Gender Information Value Date Recorded Sex Assigned at Not on file Legal Sex Male 10:38 AM [facility] Gender Identity Not on file Sexual Orientation Not on file documented as of this encounter Plan of Treatment Not on file documented as of this encounter Visit Diagnoses Not on filedocumented in this encounter Care Teams Furniture Polisher Relationship Specialty Start Date End Date Ubaldo Spring MD PCP - General Family Medicine 09/20/17 08/02/21 Romero Licea MD [address] [place] [address] PCP - General Family Medicine 08/03/21 Shana Mike NP [address] [place] [address] Nurse Practitioner Physical Medicine and Rehabilitation 11/15/22 Julius Canseco MD [address] [place] [address] Consulting Physician Physical Medicine and Rehabilitation 04/11/23 documented as of this encounter
== END 2025-02-27 11:45 | disposition home or self-care (01) ==
LOC: HO.HMCFM 10:56
PROVIDERS: PCP Physician Assistant; Visit Provider Physician Assistant
DX: M81.0 Age-related osteoporosis without current pathological fracture (principal); I10 Essential (primary) hypertension; J44.9 Chronic obstructive pulmonary disease, unspecified; D64.9 Anemia, unspecified

== ENCOUNTER 2025-02-27 10:56 | Outpatient (REF) | payer MEDICARE, SELFPAY ==
[2025-02-27 14:42] LABS: MANUAL DIFF FLAG NO
[2025-02-27 14:47] LABS: Hematocrit 38.1 % (42.0-52.0); Hemoglobin 12.8 g/dl (14.0-18.0); Imm Gran Abs Auto 0.03 X10*3/uL (0.00-0.03); Imm Gran Pct Auto 0.4 % (0.0-0.4); Lymphocytes Absolute Auto 1.5 X10*3/uL (1.2-4.9); Mean Corpuscular HGB Conc 33.6 g/dl (31.0-36.0); Mean Corpuscular Hemoglobin 30.1 pg (27.0-33.0); Mean Corpuscular Volume 89.6 fL (80.0-98.0); NRBC Abs Auto 0.000 X10*3/uL (0.0-0.012); NRBC Pct Auto 0.0 /100WBC (0.0-0.2); Platelet Count 255 X10*3/uL (160-400); Red Blood Count 4.25 X10*6/uL (4.60-5.80); White Blood Count 8.0 X10*3/uL (4.8-10.8)
[2025-02-27 14:52] LABS: Appearance Urine Clear; Glucose Urine UA Negative (Negative); PH 5.5 (5.0-9.0); Specific Gravity - Urine 1.020 (1.005-1.025); UMIC TRIGGER UACC YES
[2025-02-27 15:12] LABS: Anion Gap 11 (12-20); Blood Urea Nitrogen 11 mg/dL (9-16); Calcium 8.5 mg/dL (8.4-10.2); Carbon Dioxide 27 mmol/L (22-29); Chloride 105 mmol/L (96-108); Cholesterol 113 mg/dL (<200); Estimated Glomerular Filt Rate > 60; HDL Cholesterol 40 mg/dL (>40); Iron 35 mcg/dL (45-160); Percent Iron Saturation 14 % (15-50); Potassium 4.1 mmol/L (3.3-5.1); Sodium 139 mmol/L (135-145); Total Iron Binding Capacity 246 mcg/dL (228-428); Triglycerides 108 mg/dL (<150); Unsaturated Iron Binding 211 ug/dL
[2025-02-27 15:29] LABS: Ferritin 71 ng/mL (20-250)
== END 2025-02-27 10:57 | disposition home or self-care (01) ==
LOC: HO.WFDLDS 10:56
PROVIDERS: Nurse Practitioner Family; PCP Physician Assistant; Visit Provider Physician Assistant
DX: I10 Essential (primary) hypertension (principal); M81.0 Age-related osteoporosis without current pathological fracture; D64.9 Anemia, unspecified; Z21 Asymptomatic human immunodeficiency virus [HIV] infection status; J44.9 Chronic obstructive pulmonary disease, unspecified; Z91.09 Other allergy status, other than to drugs and biological substances
CPT/HCPCS: 36415; 80048; 80061; 81001; 82306; 82728; 82785; 83540; 85025; 99212

== ENCOUNTER 2025-03-19 11:12 | Outpatient (AMB) | payer MEDICARE, SELFPAY ==
--- NOTE | 2025-03-19 11:15 | A.OFFVIS_ITS ---
Vital Signs 03/19/25 11:21 Height 5 ft 9 in Weight 176 lb BMI 26.0 BP 126/60 Blood Pressure Location Rt brachial Position Sitting Pulse 66 Pulse Source Pulse Oximeter Pulse Oximetry (%) 97 Oxygen Delivery Method Room Air Intake Visit Reasons: polyp of colon Intake Note: New pt for recall colo. Unspecified date for last colo. Documented hx of polyps per PCP. CC: C.O. GERD intermittently, seemingly worse at night. Pt denies any form of treatment at this time. Reports last colo was in [place] state approximately 3-4 years ago. New Car Make Ready Worker Required: No Accompanied by: Daughter Allergies Seasonal Allergies Allergy (Mild, Verified 03/19/25 11:15) sneezing HPI HPI polyp of colon: Details: 69-year-old male with past medical history of diabetes, hypertension, osteoporosis, dyspnea, anemia, COPD, HIV, and anxiety, CAD is here today for pre colonoscopy screening.? Patient was sent to us by his PCP.? Patient reports last colonoscopy 3 years ago. Suboptimal prep, 3 polyps found. Patient reports week after procedure he had rectal bleed. Seen in the ED 4 units of blood given. Patient was told to return for colonoscopy within a year. ? Patient reports epigastric pain and severe reflux usually at night time. Patient reports that he eats 1 meal a day. His meals late evening. Sometimes eating later at night. Currently not on any PPI or H2 tam.? Denies any family history of CRC.? Denies history of difficulty with sedation or anesthesia in the past.? History of sleep apnea not using CPAP.? Denies any history of cardiac, renal, pulmonary, or hepatic disease.?? History of HIV. ? Patient is on low-dose aspirin [facility] Medical History (Updated 03/19/25 @ 11:25 by Gloria Apple [facility]) Weight loss Hyperlipidemia Diabetes High blood pressure Surgical History (Updated 03/19/25 @ 11:28 by LEODAN Pfeiffer) H/O colonoscopy H/O partial thyroidectomy Hx of heart artery stent Family History Father History of quadruple bypass Lung cancer Mother No problems noted. Social History Housing: House Housing Other:: Lives with daugter. Normally lived in an , but is currently in the shop Alcohol intake: never Patient Tobacco Use Status: Never used Tobacco e-Cigarette/Vaping Use: Never Used Second Hand Smoke Exposure: Yes service: No Current occupational status: retired Cognitive needs: No Hearing needs: Yes (Hearing aids. Did not put them in today. ) Vision needs: No Review of Systems Const Denies weight gain and Denies weight loss ENT Reports no additional complaints, Denies dysphagia and Denies odynophagia Card Reports no additional complaints Resp Reports no additional complaints GI Denies abdominal pain, Denies belching, Denies melena, Denies bloating, Denies change in bowel habits, Denies dysphagia, Denies excessive flatus, Denies dyspepsia, Denies heartburn, Denies diarrhea, Denies loose stools, Denies nausea, Denies odynophagia and Denies vomiting Reports no additional complaints Musc Reports no additional complaints Neuro Reports no additional complaints Psych Reports no additional complaints Endo Reports no additional complaints Physical Exam Vital Signs: Last Vital Signs Pulse 66 03/19/25 11:21 BP 126/60 03/19/25 11:21 Pulse Ox 97 03/19/25 11:21 Oxygen Delivery Method Room Air 03/19/25 11:21 BMI result Body Mass Index 26.0 Const General: healthy appearing, no acute distress and well developed Nutritional Appearance: well nourished Orientation/consciousness: patient oriented x3 Resp Effort & Inspection: normal respiratory effort, able to speak in complete sentences, no tracheal deviation and symmetric chest movement Auscultation: clear to auscultation bilaterally Cardio Rate: regular rate GI Inspection: Yes normal to inspection and No distended Palpation (GI): Soft to palpation, not firm, nontender and No hepatosplenomegaly present Auscultation: normal bowel sounds General: Yes no CVA tenderness Back/Spine/Pelvis Back: no CVA tenderness Skin General skin exam: elasticity normal, turgor normal and dry skin Neuro General: patient oriented x3 Psych Appearance: grossly normal Mental Status: mental status grossly normal Assessment & Plan Assessment & Plan (1) Colon polyps: Code(s): K63.5 - Polyp of colon Category: Medical Qualifiers: Colon location: unspecified part of colon Colon polyp type: unspecified Qualified Code(s): K63.5 - Polyp of colon (2) Screen for colon cancer: Code(s): Z12.11 - Encounter for screening for malignant neoplasm of colon (3) GERD (gastroesophageal reflux disease): Code(s): K21.9 - Gastro-esophageal reflux disease without esophagitis Qualifiers: Esophagitis presence: esophagitis presence not specified Qualified Code(s): K21.9 - Gastro-esophageal reflux disease without esophagitis Plan Patient denies any cardiac or respiratory symptoms.? Denies any issues with anesthesia in the past.? History of sleep apnea, not using CPAP.? On low-dose aspirin.? No family of colon cancer.? Last colonoscopy 3 years ago, suboptimal prep was told to return within a year. Patient moved just recently from [place]. Patient denies melena, hematochezia, unintentional weight loss or ribbon like stools.? Discussed at length the pre-procedure,? prep, diet & medications as well as what to expect prior, during and after the procedure.?? Stressed the importance of good bowel prep.? Recommended the use of Vaseline or Calmoseptine OTC & baby wipes with bowel movements to promote comfort.? ?Patient verbalizes understanding and agrees to plan of care.? He was given the opportunity to ask questions and all questions answered.? We will see him after the procedure.? Medications: New bisacodyl (Dulcolax (bisacodyl)) Start taking 2 tablet every night 7 days before the procedure and 1 day before procedure take 4 tablets at noon time followed by MiraLax prep 10 mg (2 x 5 mg) PO BEDTIME 16 tabs 0RF Z12.11 - Encounter for screening for malignant neoplasm of colon omeprazole 20 mg PO DAILY 30 caps 3RF K21.9 - Gastro-esophageal reflux disease without esophagitis polyethylene glycol 3350 (Miralax) As directed by gastroenterology department at [facility] 238 grams PO ONCE 238 grams 0RF Z12.11 - Encounter for screening for malignant neoplasm of colon Coding Level of Care Code New Pt Level 3 (67152) Diagnoses Polyp of colon, unspecified part of colon, unspecified type K63.5 Colon location: unspecified part of colon Colon polyp type: unspecified Screen for colon cancer Z12.11 Gastroesophageal reflux disease, unspecified whether esophagitis present K21.9 Esophagitis presence: esophagitis presence not specified Time Spent (min) 40 Comment 30 minutes spent with patient and additional 10 minutes spent reviewing his records
[2025-03-19 11:21] VITALS: BP 126/60; PULSE 66; O2SAT 97; BMI 26.0
--- OUTSIDE RECORDS SUMMARY | 2025-03-19 13:36 | XMS_ITS | Encounter Summary ---
Author Organization [facility] Address [address] [place] [address] Care Team Providers Care Occupational Therapist Per Diem Name Role Phone Romero Licea MD Primary Care Provider Shanae Zarate MD Unavailable Princess Monroy TERMINAL GAUGER SUPERVISOR Unavailable [phone] Luh NashD Unavailable Cathy Tee RN Unavailable Romero Licea MD Unavailable Renee Mora DO Unavailable Renee Mora DO Primary Care Provider Reason for Visit * Reason Comments Med Refill Encounter Details Date Type Department Care Team (Late st Contact Info) Description 05/25/2019 Refill [facility] [address] [place], [place] [id number] Nirmal Huizar MD [address] [place] [address] Social History Tobacco Use Types Packs/Day Years Used Date Smoking Tobacco: Never Assessed Sex and Gender Information Value Date Recorded Sex Assigned at Not on file Legal Sex Male 1:57 AM [facility] Gender Identity Not on file Sexual Orientation Not on file documented as of this encounter Plan of Treatment Not on file documented as of this encounter Visit Diagnoses Not on filedocumented in this encounter Care Teams Occupational Therapist Per Diem Relationship Specialty Start Date End Date Romero Licea MD PCP - General Family Medicine 06/27/19 05/27/24 Romero Licea MD [address] [place] [address] PCP - Medicare Advantage - Attributed PCP 10/09/22 07/10/23 Renee Mora DO [address] [place] [address] PCP - Medicare Advantage - Attributed PCP 07/11/23 06/09/24 Renee Mora DO [address] [place] [address] PCP - General Family Medicine 06/04/24 Shanae Zarate MD [address] [place] [address] Consulting Physician Cardiology 10/13/20 Princess Monroy LCSW [address] [place] [address] Crisis Counselor Cable Armorer Operator 10/31/20 05/27/24 Luh Nash, HunterD [address] [place] [address] Clinical Pharmacist Pharmacy 11/24/20 03/04/22 Cathy Tee, KAMERON [address] [place] [address] [place] [address] Kiln Labourer ( Nurse) Care Management 08/17/21 documented as of this encounter
--- OUTSIDE RECORDS SUMMARY | 2025-03-19 13:36 | XMS_ITS | Encounter Summary ---
Author Organization [facility] Address [address] [place] [address] Care Team Providers Care Vacuum Furnace Operator Name Role Phone Ubaldo Spring MD Primary Care Provider + [phone] Romero Licea MD Primary Care [place] Shana Mike NP Unavailable [phone] Julius Canseco MD Unavailable Encounter Details Date Type Department Care Team (Late st Contact Info) Description 09/24/2017 Procedure Pass [facility] Endoscopy [address] [place] [address] Social History Tobacco Use Types Packs/Day Years Used Date Smoking Tobacco: Former Cigarettes 2 10 2 - 2010 Smokeless Tobacco: Never Alcohol Use Standard Drinks/Week Comments No 0 (1 standard drink = 0.6 oz pur e alcohol) Sex and Gender Information Value Date Recorded Sex Assigned at Not on file Legal Sex Male 10:38 AM [facility] Gender Identity Not on file Sexual Orientation Not on file documented as of this encounter Plan of Treatment Not on file documented as of this encounter Visit Diagnoses Not on filedocumented in this encounter Care Teams Vacuum Furnace Operator Relationship Specialty Start Date End Date Ubaldo Spring MD PCP - General Family Medicine 09/20/17 08/02/21 Romero Licea MD [address] [place] [address] PCP - General Family Medicine 08/03/21 Shana Mike NP [address] [place] [address] Nurse Practitioner Physical Medicine and Rehabilitation 11/15/22 Julius Canseco MD [address] [place] [address] Consulting Physician Physical Medicine and Rehabilitation 04/11/23 documented as of this encounter
--- OUTSIDE RECORDS SUMMARY | 2025-03-19 13:36 | XMS_ITS | Encounter Summary ---
Author Organization [facility] Address [address] [place] [address] Care Team Providers Care Security Screener Name Role Phone Romero Licea MD Primary Care [place] Shana Mike NP Unavailable [phone] Julius Canseco MD Unavailable Encounter Details Date Type Department Care Team (Late st Contact Info) Description 01/21/2022 Procedure Pass [facility] Surgery [address] [place] [address] Social History Tobacco Use Types [...] filedocumented in this encounter Care Teams Security Screener Relationship Specialty Start Date End Date Romero Licea MD [address] [place], [place] [id number] PCP - General Family Medicine 08/03/21 Shana Mike NP [address] [place] [address] Nurse Practitioner Physical Medicine and Rehabilitation 11/15/22 Julius Canseco MD [address] [place] [address] Consulting Physician Physical Medicine and Rehabilitation 04/11/23 documented as of this encounter
--- OUTSIDE RECORDS SUMMARY | 2025-03-19 13:36 | XMS_ITS | Encounter Summary ---
Author Organization [facility] Address [address] [place] [address] Care Team Providers Care Mass Communications Instructor Name Role Phone Romero Licea MD Primary Care Provider Shanae Zarate MD Unavailable Princess Monroy TENTER Unavailable Luh NashD Unavailable Cathy Tee RN Unavailable Romero Licea MD Unavailable Renee Mora DO Unavailable Renee Mora DO Primary Care Provider Reason for Visit * Reason Comments Med Refill Encounter Details Date Type Department Care Team (Late st Contact Info) Description 06/27/2019 Refill [facility] [address] [place], [place] [address] Nirmal Huizar MD [address] [place] [address] Social History Tobacco Use Types Packs/Day Years Used Date Smoking Tobacco: Never Assessed Sex and Gender Information Value Date Recorded Sex Assigned at Not on file Legal Sex Male 1:57 AM [facility] Gender Identity Not on file Sexual Orientation Not on file documented as of this encounter Plan of Treatment Not on file documented as of this encounter Visit Diagnoses Not on filedocumented in this encounter Care Teams Mass Communications Instructor Relationship Specialty Start Date End Date Romero Licea MD PCP - General Family Medicine 06/27/19 05/27/24 Romero Licea MD [address] [place] [address] PCP - Medicare Advantage - Attributed PCP 10/09/22 07/10/23 Renee Mora DO [address] [place] [address] PCP - Medicare Advantage - Attributed PCP 07/11/23 06/09/24 Renee Mora DO [address] [place] [address] PCP - General Family Medicine 06/04/24 Shanae Zarate MD [address] [facility] [place] [address] Consulting Physician Cardiology 10/13/20 Princess Monroy LCSW [address] [place] [address] Telegraph Editor Commercial Helicopter Pilot 10/31/20 05/27/24 Luh Nash, HunterD [address] [place] [address] Clinical Pharmacist Pharmacy 11/24/20 03/04/22 Cathy Tee, KAMERON [address] [place] [address] [facility] [place] [address] Sales Producer ( Nurse) Care Management 08/17/21 documented as of this encounter
--- OUTSIDE RECORDS SUMMARY | 2025-03-19 13:36 | XMS_ITS | Clinical Summary ---
Author Organization [facility] Address [address] [place] [address] Care Team Providers Care Business Systems Manager Name Role Phone Shanae Zarate MD Unavailable Renee Mora DO Primary Care Provider [phone] Allergies Active Allergy Reactions Criticality Noted Date [...] - submitted cover my meds 06/16/22 (Toussaint: [email or web address]) - approved 06/02/22-06/16/23 Request #[id number] co Problem Noted Date Diagnosed Date Type 2 diabetes mellitus wit h diabetic peripheral angiopathy without gangrene, with long-term current use of insulin 07/01/2023 Type 2 diabetes mellitus with other specified co mplication 07/01/2023 Overview (07/01/2023): With mixed hyperlipidemia Assessment & Plan (07/01/2023 1:51 PM [facility]): Diabetes is controlled. A1c up because he was off trulicity for a while but been back on it. Stable. Continue present management. Age-related osteoporosis wit hout current pathological fracture 07/26/2022 Overview (07/26/2022): DXA 07/01 right hip -3.6, left hip -3.5 Assessment & Plan (07/26/2022 10:48 AM [facility]): Recent pelvic fracture. Counseling about osteopenia/osteoporosis. Discussed fracture risks. Discussed fall prevention. Weight bearing exercises. Agreed to starting fosamax. Side effects reviewed and ways to prevent. Chronic pain syndrome 07/26/2022 Overview (07/26/2022): Pain generator: chronic multilevel degenerative disc disease; neuropathy Lab Results Component Value Date Opioid Agreement Form Date contract 05/19/2022 Last PDMP: 07/26/2022 10:52 AM by TUNDE LOVETT Assessment & Plan (07/26/2022 10:55 AM [facility]): Patient requested refill of his pain medication. [...] is for him to consult with a regulatory compliance specialist or even update his spine imaging. I will defer this to his pain management team. Bilateral carpal tunnel syndrome 07/26/2022 Overview (07/26/2022): EMG/NCV 07/01 Assessment & Plan (07/26/2022 10:56 AM [facility]): I will request his records from Dr. [...] findings. Assessment & Plan (10/13/2020 11:44 AM [facility]): Condition is newly identified. 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 Abdominal aortic atherosclerosis 06/29/2019 Overview (06/29/2019): CT [...] to stent. Advised to follow-up with his field agronomist. Benign essential HTN 06/29/2019 Assessment & Plan [...] comorbidities Paroxysmal atrial fibrillation 06/29/2019 Overview (07/01/2023): [id number] Score 3 Assessment & Plan (07/01/2023 1:50 [...] (10/13/2020): Added automatically from request for surgery [id number] Resolved Problems Problem Noted Date Diagnosed Date [...] Encounters Date Type Department Care Team Description 12/26/[address] [place] [address] Renee Mora DO Paroxysmal atrial fibrillation ([facility]/HCC) 12/26/2024 Refill [facility] [address] [facility] [address] [place] [address] Renee May MD Diabetic polyneuropathy associated with type 2 diabetes mellitus ([facility]/HCC) 12/26/2024 Refill [facility] [address] [facility] [address] [place] [address] Gay Rosario MD Age-related osteoporosis without current pathological fracture from Last 3 Months Immunizations Immunization Administration Dates Next Due COVID Moderna SARS-CoV-2 [...] 07/21/2022 How often do you attend chur or pentecostal services? Patient declined 07/21/2022 Do you belong to any clubs o r organizations such as jew groups, unions, fraternal or athletic groups, or [...] Risk (PHQ2) Score 0 [facility] - Occupational Stress Questionnaire Answer Date [...] 74 07/01/2023 1:21 PM MST Temperature 36.1 C (96.9 F) 07/01/2023 1:21 PM MST Respiratory Rate 16 07/21/2022 1:37 PM MST [...] Annual HRA 07/21/2023 07/21/2022, 0 Influenza Vaccine (#1) 2025 , 04/28/2016, 04/28/2016 DTaP,Tdap,and Td Vaccines (3 - Td or Tdap) 06/30/2028 06/30/2018, 03/31/2016 Colonoscopy 08/03/2031 08/03/2021 Colorectal Cancer Screening 08/03/2031 Hepatitis C Screening Completed 07/26/2018 Pneumococcal Vaccine: 50+ Years Completed 07/21/2022, 07/26/2018, 03/31/2016 Procedures Procedure Name Priority Date/Time Associated Diagnosis Comments COLONOSCOPY Routine 08/03/2021 OCCULT BLOOD X 1, STOOL Routine 10/15/2020 12:00 AM [facility] Screening for colorectal cancer HEPATITIS C VIRUS (HCV) ANTIBODY WITH REFLEX TO QUALITATIVE ISABEL Routine 07/26/2018 from Last 3 Months or Most Recently Relevant to Health Maintenance Results * Colonoscopy (08/03/2021) Pathologist [facility] Colonoscopy colon polyps [facility] Provider HEALTH MAINTENANCE Final Result * Occult blood x 1, stool (10/15/2020 12:00 AM [facility]) Occult Bld Immunochem Negative Negative [employer] Comment: Assay sensitivity is >95% when 50 ug Hb/g of stool is present. Clinical sensitivity for colorectal cancer is 87%, and for large adenomas is 47%, based on an evaluation of 240 individuals in a premarket commercial data set used for FDA approval. Overall, clinical specificity is 97.7%. Stool (Per Rectum) 10/15/2020 10/22/2020 7:18 PM MST Narrative [facility] - 10/15/2020 12:00 AM [facility] Time/Date of collection taken from specimen. Copy being sent to: Results Only Account [employer] Tunde Lovett MD LAB BODY FLUIDS AND STOOLS OR DERABLES Edited Result - Final Performing Organization Address [facility] Co de Phone Number [facility] [place] [address] * Hepatitis C Virus (HCV) Antibody With [...] status. Hepatitis C Antibody Reference Range: <=0.79 Nonreactive 0.80-0.99 Equivocal >=1.00 Reactive The magnitude of the numerical result of the HCV assay result does not correlate to the actual quantitative amount of HCV antibody present in the sample. 07/26/2018 Tunde Lovett MD LAB BLOOD ORDERABLES Final Re sult Performing Organization Address [facility] Co de Phone Number [facility] [address] from Last 3 Months or Most Recently Relevant to Health Maintenance Care Teams Business Systems Manager Relationship Specialty Start Date End Date Renee Mora DO [address] [place] [address] PCP - General Family Medicine 06/04/24 Shanae Zarate MD [address] [place] [address] Consulting Physician Cardiology 10/13/20
--- OUTSIDE RECORDS SUMMARY | 2025-03-19 13:36 | XMS_ITS | Encounter Summary ---
Author Organization [facility] Address [address] [place] [address] Care Team Providers Care Asphalt Paving Supervisor Name Role Phone Ubaldo Spring MD Primary Care Provider + [phone] Romero Licea MD Primary Care [place] Shana Mike NP Unavailable [phone] Julius Canseco MD Unavailable [phone] Encounter Details Date Type Department Care Team (Late st Contact Info) Description 09/23/2017 Procedure Pass [facility] Endoscopy [address] [place] [address] Social History Tobacco Use Types Packs/Day Years Used Date Smoking Tobacco: Former Cigarettes 2 10 2 - 2010 Smokeless Tobacco: Never Alcohol Use Standard Drinks/Week Comments No 0 (1 standard drink = 0.6 oz pur e alcohol) Sex and Gender Information Value Date Recorded Sex Assigned at Not on file Legal Sex Male 10:38 AM [facility] Gender Identity Not on file Sexual Orientation Not on file documented as of this encounter Plan of Treatment Not on file documented as of this encounter Visit Diagnoses Not on filedocumented in this encounter Care Teams Asphalt Paving Supervisor Relationship Specialty Start Date End Date Ubaldo Spring MD PCP - General Family Medicine 09/20/17 08/02/21 Romero Licea MD [address] [place] [address] PCP - General Family Medicine 08/03/21 Shana Mike NP [address] [place] [address] Nurse Practitioner Physical Medicine and Rehabilitation 11/15/22 Julius Canseco MD [address] [place] [address] Consulting Physician Physical Medicine and Rehabilitation 04/11/23 documented as of this encounter
--- OUTSIDE RECORDS SUMMARY | 2025-03-19 13:36 | XMS_ITS | Encounter Summary ---
Author Organization [facility] Address [address] [place] [address] Care Team Providers Care Seed Cleaning Machine Operator Name Role Phone Romero Licea MD Primary Care Provi clif[place] Shana Mike NP Unavailable [phone] Julius Canseco MD Unavailable [phone] Encounter Details Date Type Department Care Team (Late st Contact Info) Description 10/08/2021 Procedure Pass [facility] Surgery [address] [place] [address] Social History Tobacco Use Types Packs/Day Years Used Date Smoking Tobacco: Former Cigarettes 2 10 Smokeless Tobacco: Never Alcohol Use Standard Drinks/Week Comments No 0 (1 standard drink = 0.6 oz pur e alcohol) Sex and Gender Information Value Date Recorded Sex Assigned at Not on file Legal Sex Male 10:38 AM [facility] Gender Identity Not on file Sexual [...] on filedocumented in this encounter Care Teams Seed Cleaning Machine Operator Relationship Specialty Start Date End Date Romero Licea MD [address] [place], [place] [id number] PCP - General Family Medicine 08/03/21 Shana Mike NP [address] [place] [address] Nurse Practitioner Physical Medicine and Rehabilitation 11/15/22 Julius Canseco MD [address] [place] [address] Consulting Physician Physical Medicine and Rehabilitation 04/11/23 documented as of this encounter
--- OUTSIDE RECORDS SUMMARY | 2025-03-19 13:36 | XMS_ITS | Clinical Summary ---
Author Organization [facility] Address [address] [place] [address] Care Team Providers Care Recovery Engineer Name Role Phone Romero Licea MD Primary Care Provi cl[place] Shana Mike NP Unavailable [phone] Julius Canseco MD Unavailable Allergies No known [...] (10/06/2021): Added automatically from request for surgery [id number] Lumbar radiculopathy 10/05/2021 Overview (10/05/2021): Added automatically from request for surgery [id number] Fever 09/23/2017 Asthma 09/21/2017 HIV (human immunodeficiency virus infection) COPD (chronic obstructive pulmonary disease) Hypertension 09/21/2017 Polycythemia 09/21/2017 Hyponatremia 09/21/2017 Dehydration 09/20/[address] scan, stomach 09/20/2017 Overview (09/23/2017): Added automatically from request for surgery [id number] Social History Tobacco Use Types Packs/Day Years Used Date Smoking Tobacco: Former Cigarettes 2 10 Smokeless Tobacco: Never Tobacco Cessation:Counseling Given: Not Answered Alcohol Use Standard Drinks/Week Comments No 0 (1 standard drink = 0.6 oz pur e alcohol) Sex and Gender Information Value Date Recorded Sex Assigned at Not on file Legal Sex Male 10:38 AM [facility] Gender Identity Not on file Sexual Orientation Not on file Last Filed Vital Signs Vital Sign Reading Time Taken Comments Blood Pressure 128/72 04/11/2023 5:00 PM [facility] Pulse 66 04/11/2023 5:00 PM [facility] Temperature 36.6 C (97.8 F) 04/11/2023 2:43 PM [facility] Respiratory Rate 16 04/11/2023 5:00 PM [facility] Oxygen Saturation 99% 04/11/2023 5:00 PM [facility] Inhaled Oxygen Concentration - - Weight 90.7 kg (200 lb) 04/11/2023 2:43 PM MST Height 177.8 cm (5' 10 ) 04/11/2023 2:43 PM MST Body Mass Index 28.7 04/11/2023 2:43 PM MST Plan of Treatment Health Maintenance Due Date Last Done Comments Cologuard 1957 Fecal Immunohistochemical Test 1957 Sigmoidoscopy 1957 Adult Wellness Visit 1975 Hepatitis C Screen 1975 Hepatitis A Vaccine (1 of 2 - Risk 2-dose series) 1976 Zoster (Shingles) Vaccine (1 of 2) 1976 RSV Vaccine (1 - Risk 60-74 years 1-dose series) 2017 COVID-19 Vaccine (#1) 11/10/2020 11/10/2020, 021 Abdominal Aortic Aneurysm (A AA) Screening 2022 09/21/2017, 09/20/2017 Influenza Vaccine (#1) 2025 04/14/2021, 2015 DTaP,Tdap,or Td Vaccines (3 - Td or Tdap) 06/30/2028 06/30/2018, 03/31/2016 Colonoscopy 08/03/2031 08/03/2021, 08/03/2021 Colorectal Cancer Screening 08/03/2031 Hemoglobin A1C Discontinued 09/21/2017 Pneumococcal Vaccine: 50+ Years Completed 07/21/2022, 07/26/2018, 03/31/2016 HPV VACCINES (No Doses Required) Completed Procedures Procedure Name Priority Date/Time Associated Diagnosis [...] abdomen pelvis with contrast (09/21/2017 8:44 PM [facility]) Anatomical Region Laterality Modality Abdomen, Chest, Pelvis, Hip Comp uted Tomography 09/21/2017 8:42 PM [facility] Narrative 09/21/2017 8:[address] [facility] CT THORAX, ABDOMEN AND PELVIS WITH CONTRAST HISTORY: Immunocompromised. Fever of unknown origin COMPARISON: May 2005 TECHNIQUE: Intravenous low osmolar contrast. Coronal and sagittal reformations. FINDINGS: CHEST: CARDIAC: Heart size not enlarged. Coronary calcifications present. AORTA/MEDIASTINUM: Mild mediastinal adenopathy with nodes individually no larger than 5 x 11 mm, involving superior mediastinum, paratracheal, subcarinal, and hilar regions, but prominent in number. These are increased as compared to 2004 CT study. No aneurysm or dissection of [...] previously which are worrisome for atypical infection. They appear as cluster of nodules with surrounding groundglass opacity. Largest is in the right middle lobe on axial image 70 measuring approximately 15 mm. Smaller cluster in the left lower lobe on axial image 70-74 and left upper lobe on image 62 as well as right upper lobe on image 32, respectively. Fungal or other opportunistic infection should be considered given atypical morphology and immunocompromised patient. PLEURA: No pleural effusion. SKELETAL/OTHER: No other acute changes/findings otherwise. ABDOMEN AND PELVIS: LIVER/BILIARY/PANCREAS: Status post cholecystectomy. No biliary dilatation. No pancreatic enlargement or pancreatic duct dilatation. SPLEEN/ADRENALS: Spleen top normal size. No focal lesion seen within. URINARY TRACT: Simple 3 cm and smaller cysts scattered through the kidneys bilaterally. No hydronephrosis or nephrogram asymmetry. AORTA/ RETROPERITONEUM: Scattered shotty sub-5 mm nodes but no bulky adenopathy in the abdomen. Calcified aorta. No aneurysm. [...] either a gastric mass or gastric ulcer. This would be better confirmed or excluded by endoscopy as the stomach is not well distended/evaluated by routine CT. No free air. No free ascites. Moderate to severe diverticular change in the colon chronically particularly in the descending and sigmoid colon. No definite diverticulitis. There is mild thickening of the rectum which could reflect proctitis but would be better evaluated by proctoscopy and CT. No convincing intra-abdominal abscess seen. IMPRESSION: New areas of nodular airspace disease with surrounding ground glass scattered throughout both lungs worrisome for atypical, possibly opportunistic, infection. Clinically correlate and follow-up to resolution. Other findings in the chest abdomen and pelvis as detailed above. See comment. Procedure Note Kirk Leon MD - [...] detailed above. Seecomment. us Bright Sanchez MD IM CT ORDERABLES Final Result * (ABNORMAL) Hemoglobin A1c (09/21/2017 4:47 AM [facility]) Hemoglobin A1C 8.5(H) <=5.7 % 09/21/2017 9:55 AM [facility] EAG 197.3 mg/dL 09/21/2017 9:55 AM [facility] Blood BLOOD SPECIMEN / Unknown Venipuncture / Unknown 09/21/2017 4:47 AM [facility] 09/21/2017 4:57 AM MST Narrative [facility] - 09/21/2017 9:55 AM MST The [place] [employer] (ADA) guidelines for interpreting Hemoglobin A1C are as follows: Non-Diabetic patient: <5.7% Increased risk for future Diabetes: 5.7-6.4% ADA diagnostic criteria for Diabetes: >6.4% Values for patients with Diabetes: Result <7.0%: Meets ADA's recommendation goal for therapy. Result 7.0-8.0%: Exceeds ADA's recommended goal. Result >8.0%: ADA recommends reevaluation of therapy. us Dre Perez MD LAB BLOOD ORDERABLES Bess chavez Result [facility] [id number] [id number], [facility] [phone] from Last 3 Months or Most Recently Relevant to Health Maintenance Insurance [facility] MEDICARE ADVANTAGE [facility] MEDICARE ADVANTAGE [employer] MEDICARE ADVANTAGE CIGNA MEDICARE ADVANTAGE Advance Directives For more information, please contact: [phone] * Full Code (Latest Code Status on File) Date Activated Date Inactivated Comments 09/20/2017 8:25 PM 09/26/2017 4:14 PM Care Teams Recovery Engineer Relationship Specialty Start Date End Date Romero Licea MD [address] [place] [id number] PCP - General Family Medicine 08/03/21 Shana Mike NP [address] [place] [address] Nurse Practitioner Physical Medicine and Rehabilitation 11/15/22 Julius Canseco MD [address] [place] [address] Consulting Physician Physical Medicine and Rehabilitation 04/11/23
--- OUTSIDE RECORDS SUMMARY | 2025-03-19 13:36 | XMS_ITS | Encounter Summary ---
Author Organization [facility] Address [address] [place] [address] Care Team Providers Care Client Account Representative Name Role Phone Shanae Zarate MD Unavailable Renee Mora DO Primary Care Provider [phone] Reason for Visit * Reason Comments Med Refill Encounter Details Date Type Department Care Team (Late st Contact Info) Description 06/23/2024 Refill [facility] [address] [place] [address] [place] [address] [place] [address] [address] [place] [address] Diabetic polyneuropathy associated with type 2 diabetes mellitus ([facility]/HCC) Social History Tobacco Use Types Packs/Day Years [...] any clubs o r organizations such as alevism groups, unions, fraternal or athletic groups, or [...] Depression Risk (PHQ2) Score 0 [facility] - Occupational Stress Questionnaire Answer [...] place to sleep or slept in a care home (including now)? No 07/21/2022 Sex and [...] polyneuropathy associated with type 2 diabetes mellitus (CMS/[facility]) documented in this encounter Additional Health Concerns Assessment Noted Time PHQ-9 Depression Total Score: 0 07/01/20 1:59 PM MST PHQ-2 Depression Total Score: 0 07/01/20 1:59 PM MST documented as of this encounter Care Teams Client Account Representative Relationship Specialty Start Date End Date Renee Mora DO [address] [place] [address] PCP - General Family Medicine 06/04/24 Shanae Zarate MD [address] [place] [address] Consulting Physician Cardiology 10/13/20 documented as of this encounter
--- OUTSIDE RECORDS SUMMARY | 2025-03-19 13:36 | XMS_ITS | Encounter Summary ---
Author Organization [facility] Address [address] [place] [address] Care Team Providers Care Rn Otolaryngology Name Role Phone Romero Licea MD Primary Care Provider Shanae Zarate MD Unavailable Princess Monroy CANDY SEPARATOR HARD Unavailable [phone] Luh NashD Unavailable Cathy Tee RN Unavailable Romero Licea MD Unavailable Renee Mora DO Unavailable Renee Mora DO Primary Care Provider Reason for Visit * Reason Comments Med Refill Encounter Details Date Type Department Care Team (Late st Contact Info) Description 05/04/2019 Refill [facility] [address] [place], [place] [address] Nirmal Huizar MD [address] [place] [address] Social History Tobacco Use Types Packs/Day Years Used Date Smoking Tobacco: Never Assessed Sex and Gender Information Value Date Recorded Sex Assigned at Not on file Legal Sex Male 1:[address] [facility] Gender Identity Not on file Sexual Orientation Not on file documented as of this encounter Plan of Treatment Not on file documented as of this encounter Visit Diagnoses Not on filedocumented in this encounter Care Teams Rn Otolaryngology Relationship Specialty Start Date End Date Romero Licea MD PCP - General Family Medicine 06/27/19 05/27/24 Romero Licea MD [address] [place] [address] PCP - Medicare Advantage - Attributed PCP 10/09/22 07/10/23 Renee Mora DO [address] [place] [address] PCP - Medicare Advantage - Attributed PCP 07/11/23 06/09/24 Renee Mora DO [address] [place] [address] PCP - General Family Medicine 06/04/24 Shanae Zarate MD [address] [place] [address] Consulting Physician Cardiology 10/13/20 Princess Monroy LCSW [address] [place] [address] Staffing Manager Turbine Measurements Engineer 10/31/20 05/27/24 Luh Nash, HunterD [address] [place] [address] Clinical Pharmacist Pharmacy 11/24/20 03/04/22 Cathy Tee, KAMERON [address] [place] [address] [place] [address] Home Visit Field Care Manager ( Nurse) Care Management 08/17/21 documented as of this encounter
--- OUTSIDE RECORDS SUMMARY | 2025-03-19 13:36 | XMS_ITS | Encounter Summary ---
Author Organization [facility] Address [address] [place] [address] Care Team Providers Care Sound System Installer Name Role Phone Shanae Zarate MD Unavailable Renee Mora DO Primary Care Provider [phone] Reason for Visit * Reason Comments Med Refill Encounter Details Date Type Department Care Team (Late st Contact Info) Description 07/15/2024 Refill [facility] [address] [place], [place] [id number] Gay Rosario MD [address] [facility] [address] [place], [place] [id number] Diabetic polyneuropathy associated with type 2 diabetes mellitus ([facility]/HCC) Social History Tobacco Use Types Packs/Day Years [...] often do you attend chur ch or scientology services? Patient declined 07/21/2022 Do you belong to any clubs o r organizations such as islam groups, unions, fraternal or athletic groups, or [...] Date Recorded Depression Risk (PHQ2) Score 0 [facility] - Occupational Stress Questionnaire Answer Date [...] place to sleep or slept in a jail (including now)? No 07/21/2022 Sex and Gender Information Value Date Recorded Sex Assigned at Not on file Legal Sex Male 1:57 AM MST Gender Identity Not on file Sexual Orientation Not on file documented as of this encounter Miscellaneous Notes * Telephone Encounter - Tana Ndiaye CPHT - 07/18/2024 5:56 AM MST RFA TEAM No staff refills--now living in [place]--see Metformin request--see Apr 2024 refill request documented in this encounter Plan of Treatment Not on file documented as of this encounter Visit Diagnoses Diagnosis Diabetic polyneuropathy associated with type 2 diabetes mellitus (CMS/HCC) documented in this encounter Additional Health Concerns Assessment Noted Time PHQ-9 Depression Total Score: 0 07/01/20 1:59 PM MST PHQ-2 Depression Total Score: 0 07/01/20 1:59 PM MST documented as of this encounter Care Teams Sound System Installer Relationship Specialty Start Date End Date Renee Mora DO [address] [place] [address] PCP - General Family Medicine 06/04/24 Shanae Zarate MD [address] [place] [address] Consulting Physician Cardiology 10/13/20 documented as of this encounter
--- OUTSIDE RECORDS SUMMARY | 2025-03-19 13:36 | XMS_ITS | Encounter Summary ---
Author Organization [facility] Address [address] [place] [address] Care Team Providers Care Patient Escort Name Role Phone Romero Licea MD Primary Care Provi clifton Shana Mike NP Unavailable [phone] Julius Canseco MD Unavailable [phone] Encounter Details Date Type Department Care Team (Late st Contact Info) Description 02/04/2022 [facility] [address] [place] [address] Social History Tobacco Use Types Packs/Day Years Used Date Smoking Tobacco: Former Cigarettes 2 10 Smokeless Tobacco: Never Alcohol Use Standard Drinks/Week Comments No 0 (1 standard drink = 0.6 oz pur e alcohol) Sex and Gender Information Value Date Recorded Sex Assigned at Not on file Legal Sex Male 10:38 AM [facility] Gender Identity Not on file Sexual [...] on filedocumented in this encounter Care Teams Patient Escort Relationship Specialty Start Date End Date Romero Licea MD [address] [place], [place] [phone] PCP - General Family Medicine 08/03/21 Shana Mike NP [address] [place] [address] Nurse Practitioner Physical Medicine and Rehabilitation 11/15/22 Julius Canseco MD [address] [place] [address] Consulting Physician Physical Medicine and Rehabilitation 04/11/23 documented as of this encounter
--- OUTSIDE RECORDS SUMMARY | 2025-03-19 13:36 | XMS_ITS | Encounter Summary ---
Author Organization [facility] Address [address] [place] [address] Care Team Providers Care Concrete Building Assembler Name Role Phone Romero Licea MD Primary Care Provi clifton Shana Mike NP Unavailable [phone] Julius Canseco MD Unavailable Encounter Details Date Type Department Care Team (Late st Contact Info) Description 10/22/2021 Procedure Pass [facility] Surgery [address] [place] [address] Social History Tobacco Use Types Packs/Day Years Used Date Smoking Tobacco: Former Cigarettes 2 10 Smokeless Tobacco: Never Alcohol Use Standard Drinks/Week Comments No 0 (1 standard drink = 0.6 oz pur e alcohol) Sex and Gender Information Value Date Recorded Sex Assigned at Not on file Legal Sex Male 10:38 AM [facility] Gender Identity Not on file [...] on filedocumented in this encounter Care Teams Concrete Building Assembler Relationship Specialty Start Date End Date Romero Licea MD [address] [place], [place] [phone] PCP - General Family Medicine 08/03/21 Shana Mike NP [address] [place] [address] Nurse Practitioner Physical Medicine and Rehabilitation 11/15/22 Julius Canseco MD [address] [place] [address] Consulting Physician Physical Medicine and Rehabilitation 04/11/23 documented as of this encounter
--- OUTSIDE RECORDS SUMMARY | 2025-03-19 13:36 | XMS_ITS | Encounter Summary ---
Author Organization [facility] Address [address] [place] [address] Care Team Providers Care Supply Planner Name Role Phone Romero Licea MD Primary Care Provi clifton Shana Mike GROMMET MAN Unavailable [phone] Julius Canseco MD Unavailable Encounter Details Date Type Department Care Team (Late st Contact Info) Description 04/11/2023 Procedure Pass [facility] Surgery [address] [place] [address] Social History Tobacco Use Types Packs/Day Years Used Date Smoking Tobacco: Former Cigarettes 2 10 Smokeless Tobacco: Never Alcohol Use Standard Drinks/Week Comments No 0 (1 standard drink = 0.6 oz pur e alcohol) Sex and Gender Information Value Date Recorded Sex Assigned at Not on file Legal Sex Male 10:38 AM [facility] Gender Identity Not on file Sexual Orientation Not on file documented as of this encounter Plan of Treatment Not on file documented as of this encounter Visit Diagnoses Not on filedocumented in this encounter Care Teams Supply Planner Relationship Specialty Start Date End Date Romero Licea MD [address] [place], [place] [id number] PCP - General Family Medicine 08/03/21 Shana Mike, JAYNA [address] [place], [place] [id number] Nurse Practitioner Physical Medicine and Rehabilitation 5/8/23 Julius Canseco MD [address] [place] [address] Consulting Physician Physical Medicine and Rehabilitation 04/11/23 documented as of this encounter
--- OUTSIDE RECORDS SUMMARY | 2025-03-19 13:36 | XMS_ITS | Encounter Summary ---
Author Organization [facility] Address [address] [place] [address] Care Team Providers Care High School Admissions Representative Name Role Phone Romero Licea MD Primary Care Provi clifton Shana Mike CERTIFIED PHYSICAL THERAPIST ASSISTANT Unavailable [phone] Julius Canseco MD Unavailable Encounter Details Date Type Department Care Team (Late st Contact Info) Description 08/03/2021 Procedure Pass [facility] Endoscopy [address] [place] [address] Social History Tobacco Use Types [...] on filedocumented in this encounter Care Teams High School Admissions Representative Relationship Specialty Start Date End Date Romero Licea MD [address] [place], [place] [phone] PCP - General Family Medicine 08/03/21 Shana Mike NP [address] [place] [address] Nurse Practitioner Physical Medicine and Rehabilitation 11/15/22 Julius Canseco MD [address] [place], [place] [id number] Consulting Physician Physical Medicine and Rehabilitation 04/11/23 documented as of this encounter
--- OUTSIDE RECORDS SUMMARY | 2025-03-19 13:36 | XMS_ITS | Encounter Summary ---
Author Organization [facility] Address [address] [place] [address] Care Team Providers Care Sod Farmer Name Role Phone Romero Licea MD Primary Care Provi clifton Shana Mike MEDICAL LAB SCIENTIST Unavailable [phone] Julius Canseco MD Unavailable Encounter Details Date Type Department Care Team (Late st Contact Info) Description 04/25/2023 Procedure Pass [facility] Surgery [address] [place] [address] Social History Tobacco Use Types [...] on filedocumented in this encounter Care Teams Sod Farmer Relationship Specialty Start Date End Date Romero Licea MD [address] [place], [place] [id number] PCP - General Family Medicine 08/03/21 Shana Mike, JAYNA [address] [place], [place] [phone] Nurse Practitioner Physical Medicine and Rehabilitation 5/8/23 Julius Canseco MD [address] [place] [address] Consulting Physician Physical Medicine and Rehabilitation 04/11/23 documented as of this encounter
== END 2025-03-19 11:49 | disposition home or self-care (01) ==
LOC: HO.HGI 11:13
PROVIDERS: PCP Physician Assistant; Visit Provider Nurse Practitioner Family
DX: Z12.11 Encounter for screening for malignant neoplasm of colon (principal); Z86.0100 Personal history of colon polyps, unspecified; K21.9 Gastro-esophageal reflux disease without esophagitis
CPT/HCPCS: 99024

== ENCOUNTER → 2025-03-19 11:12 | Outpatient (BNVA) | payer MEDICARE, SELFPAY | PROVIDERS: PCP Physician Assistant; Visit Provider Nurse Practitioner Family | DX: K63.5 Polyp of colon (principal); Z12.11 Encounter for screening for malignant neoplasm of colon; K21.9 Gastro-esophageal reflux disease without esophagitis | CPT/HCPCS: 99212 ==

== ENCOUNTER 2025-04-11 10:16 | Outpatient (AMB) | payer MEDICARE, SELFPAY ==
--- NOTE | 2025-04-11 10:19 | A.OFFVIS_ITS ---
Intake Visit Reasons: Gross hematuria Intake Note: New Patient is present for Gross Hematuria Urology Rx: none Blood Thinners:Aspirin Imaging completed: none PVR:13 mls Smoker: yes Marijuana Engraving Operator Required: No Accompanied by: Self / Same As Patient Allergies Seasonal Allergies Allergy (Mild, Verified 04/11/25 10:21) sneezing HPI Comments Details: Kvng is a pleasant male. He is a patient of Dr. Bermudez. He is seen for the following urologic conditions - microscopic hematuria Microscopic hematuria Microscopic hematuria was diagnosed during - PCP visit They are here for the - initial evaluation Since the last visit the patient has - has not noticed gross hematuria continues to test positive on dipstick Relevant medical history - anticoagulation therapy - no - kidney stones the - prostatitis no Prior tobacco use - yes 30 pack per day Workplace exposures - no Associated symptoms at initial evaluation include dysuria no frequency the urgency no decreased urinary stream no pain No nausea No weight loss No Radiographic imaging: - CT scan normal Other investigations - pending cytology Cystoscopy findings pending. Therapeutic plan - complete evaluation with cytology, imaging and cystoscopy [facility] Medical History (Updated 03/19/25 @ 11:25 by Gloria Apple [facility]) Weight loss Hyperlipidemia Diabetes High blood pressure Surgical History (Updated 03/19/25 @ 11:28 by Mic Trinidad CCM) H/O colonoscopy H/O partial thyroidectomy Hx of heart artery stent Family History Father History of quadruple bypass Lung cancer Mother No problems noted. Social History Housing: House Housing Other:: Lives with melina. Normally lived in an , but is currently in the shop Alcohol intake: never Patient Tobacco Use Status: Never used Tobacco e-Cigarette/Vaping Use: Never Used Second Hand Smoke Exposure: Yes service: No Current occupational status: retired Cognitive needs: No Hearing needs: Yes (Hearing aids. Did not put them in today. ) Vision needs: No Review of Systems Const Denies chills and Denies fever(s) Card Reports no additional complaints and Denies syncope Resp Denies cough GI Denies abdominal pain and Denies heartburn Reports as per HPI and Denies change in libido Neuro Denies syncope Psych Denies change in libido Endo Denies change in libido Physical Exam Const General: cooperative, healthy appearing, comfortable and no acute distress Orientation/consciousness: patient oriented x3 HEENT Face and sinus: Yes normal facial exam Mouth: moist mucous membranes Neck Neck: Yes normal visual inspection, Yes full ROM and Yes trachea midline Chest Chest palpation & inspection: normal inspection of the chest Resp Effort & Inspection: normal respiratory effort, able to speak in complete sentences and no respiratory distress GI Inspection: Yes normal to inspection Back/Spine/Pelvis Cervical Spine: normal cervical lordosis Thoracic/Lumbar Spine: thoracic and lumbar spine normal to inspection Skin General skin exam: no rashes or lesions noted Neuro General: patient oriented x3, gait normal, tone normal and moves all extremities Extrem General: Yes normal to inspection and Yes capillary refill normal Office Procedures Post Void Residual Post Residual Void Post Void Residual (PVR): 13 [id number] Void Residual by ultrasound Results AMB Urinalysis, Automated UA Leukoctes 0 Manolo/uL Last Edit by Khushboo Aragon MA on 04/11/25 11:53 UA Nitrite Negative Last Edit by Khushboo Aragon MA on 04/11/25 11:53 UA Urobilinogen 0.2 mg/dL Last Edit by Khushboo Aragon MA on 04/11/25 11:53 UA Protein 0 mg/dL Last Edit by Khushboo Aragon MA on 04/11/25 11:53 UA pH 6.0 Last Edit by Khushboo Aragon MA on 04/11/25 11:53 UA Blood 200 Kota/uL Last Edit by Khushboo Aragon MA on 04/11/25 11:53 UA Specific [place] 1.015 Last Edit by Khushboo Aragon MA on 04/11/25 11:53 UA Ketone Negative Last Edit by Khushboo Aragon MA on 04/11/25 11:53 UA Bilirubin 0 mg/dL Last Edit by Khushboo Aragon MA on 04/11/25 11:53 UA Glucose 0 mg/dL Last Edit by Khushboo Aragon MA on 04/11/25 11:53 Results Reviewed Results Reviewed: Laboratory Last Values Urine pH (Auto) 6.0 04/11/25 11:38 Specific [place] (Auto) 1.015 04/11/25 11:38 Urine Protein (Auto) 0 mg/dL 04/11/25 11:38 Glucose (UA)(Auto) 0 mg/dL 04/11/25 11:38 Urine Ketones (Auto) Negative 04/11/25 11:38 Urine Blood (Auto) 200 Kota/uL 04/11/25 11:38 Urine Nitrite (Auto) Negative 04/11/25 11:38 Urine Bilirubin (Auto) 0 mg/dL 04/11/25 11:38 Urine Urobilinogen (Auto) 0.2 mg/dL 04/11/25 11:38 Leukocyte Esterase (Auto) 0 Manolo/uL 04/11/25 11:38 Assessment & Plan Assessment & Plan (1) Hematuria: Code(s): R31.9 - Hematuria, unspecified Category: Medical Plan Cystoscopy Orders: Orders AMB Urinalysis Automated Today R31.9 - Hematuria, unspecified Urine Cytology Today N39.0 - Urinary tract infection, site not specified AMB Post Void Residual by ultrasound Today R31.9 - Hematuria, unspecified Patient Instructions: This note is constructed using voice recognition software. While every effort has been made to ensure accuracy nail puller errors may have been included. Imaging studies, laboratory and physical exam results were discussed and reviewed in detail. No major barriers to patient understanding were identified. An opportunity to ask questions regarding the treatment plan was provided. All questions were answered. The patient expressed understanding and agreement with the above treatment plan. The patient is aware they should contact our office by phone for worsening of their current condition or the appearance of new urologic symptoms. Compliance is encouraged with any medications and followup testing that is ordered. It is a privilege to participate in the urologic care of your patient. If you have any questions or concerns regarding treatment for the above conditions, or other urologic issues, please do not hesitate to contact me. The office telephone contact is [phone]. Sincerely, Dr Rogelio Daly MD, [facility] - Urology Compassionate Specialist Care for the Genitourinary System Coding Level of Care Code New Pt Level 3 (00400) Diagnoses Hematuria R31.9 CPT Codes Post Residual Void - PVR CPT Code: 64483-Fxlq Void Residual by ultrasound ([id number])
--- OUTSIDE RECORDS SUMMARY | 2025-04-11 11:42 | XMS_ITS | Clinical Summary ---
Author Organization [facility] Address [address] [place] [address] Care Team Providers Care Vascular Surgery Physician Name Role Phone Shanae Zarate MD Unavailable Renee Mora DO Primary Care Provider [phone] Allergies Active Allergy Reactions Criticality Noted Date [...] - submitted cover my meds 06/16/22 ([facility]: [id number]) - approved 06/02/22-06/16/23 Request #[id number] ca Problem Noted Date Diagnosed Date Type 2 [...] is for him to consult with a patient accounts specialist or even update his spine imaging. [...] agreement to get in touch with our [facility] team to help him get started on care, assist him to transition to terminal operations manager community and for healthy behaviors to [...] (03/11/2021 1:37 PM MST): Follow-up with his teller head. Abdominal aortic atherosclerosis 06/29/2019 Overview (06/29/2019): CT [...] to stent. Advised to follow-up with his public works director. Benign essential HTN 06/29/2019 Assessment & Plan [...] comorbidities Paroxysmal atrial fibrillation 06/29/2019 Overview (07/01/2023): [id number] Score 3 Assessment & Plan (07/01/2023 1:50 [...] (10/13/2020): Added automatically from request for surgery [id number] Resolved Problems Problem Noted Date Diagnosed Date [...] vessel cor onary artery bypass 03/11/2016 07/26/2022 Immunizations Immunization Administration Dates Next Due COVID [...] How often do you attend chur or methodist services? Patient declined 07/21/2022 Do [...] place to sleep or slept in a alf (including now)? No 07/21/2022 Sex and Gender Information Value Date Recorded Sex Assigned at Not on file Legal Sex Male 1:57 AM [facility] Gender Identity Not on file Sexual [...] Body Mass Index 27.67 07/21/2022 1:37 PM [facility] Plan of Treatment Health Maintenance Due Date [...] Health Maintenance Results * Colonoscopy (08/03/2021) Pathologist [facility] Colonoscopy colon polyps Historical Provider MD HEALTH MAINTENANCE Final Result * Occult blood x 1, stool (10/15/2020 12:00 AM [facility]) Pathologist [facility] Occult Bld Immunochem Negative Negative Havsjo Delikatesser Comment: Assay sensitivity is >95% when 50 ug Hb/g of stool is present. Clinical sensitivity for colorectal cancer is 87%, and for large adenomas is 47%, based on an evaluation of 240 individuals in a premarket commercial data set used for FDA approval. Overall, clinical specificity is 97.7%. Stool (Per Rectum) 10/15/2020 10/22/2020 7:18 PM [facility] Narrative [facility] - 10/15/2020 12:00 AM [facility] Time/Date of collection taken from specimen. Copy being sent to: Results Only Account [employer] Romero Lovett MD LAB BODY FLUIDS AND STOOLS OR DERABLES Edited Result - Final [facility] [place] [address] * Hepatitis C Virus (HCV) Antibody With Reflex to Qualitative ISABEL (07/26/2018) Pathologist [facility] HCV Ab 0.08 <=0.79 Index FOUNDAT ION [...] MD LAB BLOOD ORDERABLES Final Re sult [facility] Anywhere [address] from Last 3 Months or Most Recently Relevant to Health Maintenance Care Teams Vascular Surgery Physician Relationship Specialty Start Date End Date Renee Mora DO [address] [place] [address] PCP - General Family Medicine 06/04/24 Shanae Zarate MD [address] [place] [address] Consulting Physician Cardiology 10/13/20
--- OUTSIDE RECORDS SUMMARY | 2025-04-11 11:42 | XMS_ITS | Encounter Summary ---
Author Organization [facility] Address [address] [place] [address] Care Team Providers Care Fabric And Textile Factory Worker Name Role Phone Romero Licea MD Primary Care Provi clifton Shana Mike DISTRICT SCOUT EXECUTIVE Unavailable [phone] Julius Canseco MD Unavailable Encounter Details Date Type Department Care Team (Late st Contact Info) Description 08/03/2021 Procedure Pass [facility] Endoscopy [address] [place] [address] Social History Tobacco Use Types [...] on filedocumented in this encounter Care Teams Fabric And Textile Factory Worker Relationship Specialty Start Date End Date Romero Licea MD [address] [place], [place] [phone] PCP - General Family Medicine 08/03/21 Shana Mike NP [address] [place] [address] Nurse Practitioner Physical Medicine and Rehabilitation 11/15/22 Julius Canseco MD [address] [place], [place] [phone] Consulting Physician Physical Medicine and Rehabilitation 04/11/23 documented as of this encounter
--- OUTSIDE RECORDS SUMMARY | 2025-04-11 11:42 | XMS_ITS | Encounter Summary ---
Author Organization [facility] Address [address] [place] [address] Care Team Providers Care Hand Finisher Name Role Phone Romero Licea MD Primary Care Provi clifton Shana Mike NP Unavailable [phone] Julius Canseco MD Unavailable [phone] Encounter Details Date Type Department Care Team (Late st Contact Info) Description 10/22/2021 Procedure Pass [facility] Surgery [address] [place] [address] Social History Tobacco Use Types Packs/Day Years Used Date Smoking Tobacco: Former Cigarettes 2 10 Smokeless Tobacco: Never Alcohol Use Standard Drinks/Week Comments No 0 (1 standard drink = 0.6 oz pur e alcohol) Sex and Gender Information Value Date Recorded Sex Assigned at Not on file Legal Sex Male 10:38 AM [facility] Gender Identity Not on file [...] on filedocumented in this encounter Care Teams Hand Finisher Relationship Specialty Start Date End Date Romero Licea MD [address] [place], [place] [phone] PCP - General Family Medicine 08/03/21 Shana Mike NP [address] [place] [address] Nurse Practitioner Physical Medicine and Rehabilitation 11/15/22 Julius Canseco MD [address] [place] [address] Consulting Physician Physical Medicine and Rehabilitation 04/11/23 documented as of this encounter
--- OUTSIDE RECORDS SUMMARY | 2025-04-11 11:42 | XMS_ITS | Encounter Summary ---
Author Organization [facility] Address [address] [place] [address] Care Team Providers Care Band Edger Name Role Phone Romero Licea MD Primary Care Provider Shanae Zarate MD Unavailable Princess Monroy EMERGENCY REGISTRAR Unavailable [phone] Luh NashD Unavailable Cathy Tee RN Unavailable Romero Licea MD Unavailable Renee Mora DO Unavailable Renee Mora DO Primary Care Provider Reason for Visit * Reason Comments Med Refill Encounter Details Date Type Department Care Team (Late st Contact Info) Description 05/25/2019 Refill [facility] [address] [place], [place] [address] Nirmal Huizar MD [address] [place] [address] Social History Tobacco Use Types Packs/Day Years Used Date Smoking Tobacco: Never Assessed Sex and Gender Information Value Date Recorded Sex Assigned at Not on file Legal Sex Male 1:57 AM [facility] Gender Identity Not on file Sexual Orientation Not on file documented as of this encounter Plan of Treatment Not on file documented as of this encounter Visit Diagnoses Not on filedocumented in this encounter Care Teams Band Edger Relationship Specialty Start Date End Date Romero Licea MD PCP - General Family Medicine 06/27/19 05/27/24 Romero Licea MD [address] [place] [address] PCP - Medicare Advantage - Attributed PCP 10/09/22 07/10/23 Renee Mora DO [address] [place] [address] PCP - Medicare Advantage - Attributed PCP 07/11/23 06/09/24 Renee Mora DO [address] [place] [address] PCP - General Family Medicine 06/04/24 Shanae Zarate MD [address] [facility] [address] Consulting Physician Cardiology 10/13/20 Princess Monroy LCSW [address] [place] [address] Limerock Tower Loader Odd Job Laborer 10/31/20 05/27/24 Luh Nash, HunterD [address] [place] [address] Clinical Pharmacist Pharmacy 11/24/20 03/04/22 Cathy Tee, KAMERON [address] [place] [address] [place] [address] Electromechanical Equipment Tester ( Nurse) Care Management 08/17/21 documented as of this encounter
--- OUTSIDE RECORDS SUMMARY | 2025-04-11 11:42 | XMS_ITS | Encounter Summary ---
Author Organization [facility] Address [address] [place] [address] Care Team Providers Care Muffler Mechanic Name Role Phone Romero Licea MD Primary Care Provider Shanae Zarate MD Unavailable Princess Monroy LOGGING CREW FOREMAN Unavailable [phone] Luh NashD Unavailable Cathy Tee RN Unavailable Romero Licea MD Unavailable Renee Mora DO Unavailable Renee Mora DO Primary Care Provider Reason for Visit * Reason Comments Med Refill Encounter Details Date Type Department Care Team (Late st Contact Info) Description 05/04/2019 Refill [facility] [address] [place], [place] [address] Nimral Huizar MD [address] [place] [address] Social History Tobacco Use Types Packs/Day Years Used Date Smoking Tobacco: Never Assessed Sex and Gender Information Value Date Recorded Sex Assigned at Not on file Legal Sex Male 1:57 AM [facility] Gender Identity Not on file Sexual Orientation Not on file documented as of this encounter Plan of Treatment Not on file documented as of this encounter Visit Diagnoses Not on filedocumented in this encounter Care Teams Muffler Mechanic Relationship Specialty Start Date End Date Romero Licea MD PCP - General Family Medicine 06/27/19 05/27/24 Romero Licea MD [address] [place] [address] PCP - Medicare Advantage - Attributed PCP 10/09/22 07/10/23 Renee Mora DO [address] [place] [address] PCP - Medicare Advantage - Attributed PCP 07/11/23 06/09/24 Renee Mora DO [address] [place] [address] PCP - General Family Medicine 06/04/24 Shanae Zarate MD [address] [place] [address] Consulting Physician Cardiology 10/13/20 Princess Monroy LCSW [address] [place] [address] Casing Puller Crm Manager 10/31/20 05/27/24 Luh Nash, HunterD [address] [place] [address] Clinical Pharmacist Pharmacy 11/24/20 03/04/22 Cathy Tee, KAMERON [address] [place] [address] [place] [address] Mail Distribution Clerk ( Nurse) Care Management 08/17/21 documented as of this encounter
--- OUTSIDE RECORDS SUMMARY | 2025-04-11 11:42 | XMS_ITS | Encounter Summary ---
Author Organization [facility] Address [address] [place] [address] Care Team Providers Care Supervisor Inspection Department Name Role Phone Ubaldo [place] MD Primary Care Provider [phone] Romero Licea MD Primary Care Provi clifton Shana Mike NP Unavailable [phone] Julius Canseco MD Unavailable Encounter Details Date Type Department Care Team (Late st Contact Info) Description 09/23/2017 Procedure Pass [facility] Endoscopy [address] [place] [address] Social History Tobacco Use Types Packs/Day Years Used Date Smoking Tobacco: Former Cigarettes 2 10 2 - 2010 Smokeless Tobacco: Never Alcohol Use Standard Drinks/Week Comments No 0 (1 standard drink = 0.6 oz pur e alcohol) Sex and Gender Information Value Date Recorded Sex Assigned at Not on file Legal Sex Male 10:38 AM [facility] Gender Identity Not on file Sexual Orientation Not on file documented as of this encounter Plan of Treatment Not on file documented as of this encounter Visit Diagnoses Not on filedocumented in this encounter Care Teams Supervisor Inspection Department Relationship Specialty Start Date End Date Ubaldo [place] MD PCP - General Family Medicine 09/20/17 08/02/21 Romero Licea MD [address] [place] [address] PCP - General Family Medicine 08/03/21 Shana Mike NP [address] [place] [address] Nurse Practitioner Physical Medicine and Rehabilitation 11/15/22 Julius Canseco MD [address] [place] [address] Consulting Physician Physical Medicine and Rehabilitation 04/11/23 documented as of this encounter
--- OUTSIDE RECORDS SUMMARY | 2025-04-11 11:42 | XMS_ITS | Encounter Summary ---
Author Organization [facility] Address [address] [place] [address] Care Team Providers Care Human Factors Advisor Lead Name Role Phone Shanae Zarate MD Unavailable Renee Mora DO Primary Care Provider [phone] Reason for Visit * Reason Comments Med Refill Encounter Details Date Type Department Care Team (Late st Contact Info) Description 07/15/2024 Refill [facility] [address] [facility] [address] [place], [place] [id number] Gay Rosario MD [address] [place], [place] [id number] Diabetic polyneuropathy associated with type 2 diabetes mellitus ([facility]/HCC) Social History Tobacco Use Types Packs/Day [...] often do you attend chur ch or jew services? Patient declined 07/21/2022 Do you belong to any clubs o r organizations such as mormonism groups, unions, fraternal or athletic groups, or [...] Date Recorded Depression Risk (PHQ2) Score 0 [facility] - Occupational Stress Questionnaire Answer [...] RFA TEAM No staff refills--now living in [place]--see Metformin request--see Apr 2024 refill request documented [...] documented as of this encounter Care Teams Human Factors Advisor Lead Relationship Specialty Start Date End Date Renee Mora DO [address] [place] [address] PCP - General Family Medicine 06/04/24 Shanae Zarate MD [address] [place] [address] Consulting Physician Cardiology 10/13/20 documented as of this encounter
--- OUTSIDE RECORDS SUMMARY | 2025-04-11 11:42 | XMS_ITS | Encounter Summary ---
Author Organization [facility] Address [address] [place] [address] Care Team Providers Care Hourly Caregiver Name Role Phone Ubaldo Spring MD Primary Care Provider [phone] Romero Licea MD Primary Care Provi clifton Shana Mike NP Unavailable [phone] Julius Canseco MD Unavailable Encounter Details Date Type Department Care Team (Late st Contact Info) Description 09/24/2017 Procedure Pass [facility] Endoscopy [address] [place] [address] Social History Tobacco Use Types Packs/Day Years Used Date Smoking Tobacco: Former Cigarettes 2 10 2 - 2010 Smokeless Tobacco: Never Alcohol Use Standard Drinks/Week Comments No 0 (1 standard drink = 0.6 oz pur e alcohol) Sex and Gender Information Value Date Recorded Sex Assigned at Not on file Legal Sex Male 10:38 AM [facility] Gender Identity Not on file Sexual Orientation Not on file documented as of this encounter Plan of Treatment Not on file documented as of this encounter Visit Diagnoses Not on filedocumented in this encounter Care Teams Hourly Caregiver Relationship Specialty Start Date End Date Ubaldo Spring MD PCP - General Family Medicine 09/20/17 08/02/21 Romero Licea MD [address] [place] [address] PCP - General Family Medicine 08/03/21 Shana Mike NP [address] [place] [address] Nurse Practitioner Physical Medicine and Rehabilitation 11/15/22 Julius Canseco MD [address] [place] [address] Consulting Physician Physical Medicine and Rehabilitation 04/11/23 documented as of this encounter
--- OUTSIDE RECORDS SUMMARY | 2025-04-11 11:42 | XMS_ITS | Encounter Summary ---
Author Organization [facility] Address [address] [place] [address] Care Team Providers Care Sales Representative Printing Supplies Name Role Phone Shanae Zarate MD Unavailable Renee Mora DO Primary Care Provider [phone] Reason for Visit * Reason Comments Med Refill Encounter Details Date Type Department Care Team (Late st Contact Info) Description 06/23/2024 Refill [facility] [address] [place] [address] [place] [address] [place] [address] [address] [place] [address] Diabetic polyneuropathy associated with type [...] often do you attend chur ch or yazidism services? Patient declined 07/21/2022 Do you belong to any clubs o r organizations such as sabianism groups, unions, fraternal or athletic groups, or [...] Recorded Depression Risk (PHQ2) Score 0 [facility] - Occupational Stress Questionnaire Answer Date [...] polyneuropathy associated with type 2 diabetes mellitus ([facility]) documented in this encounter Additional Health Concerns Assessment Noted Time PHQ-9 Depression Total Score: 0 07/01/20 1:59 PM MST PHQ-2 Depression Total Score: 0 07/01/20 1:59 PM MST documented as of this encounter Care Teams Sales Representative Printing Supplies Relationship Specialty Start Date End Date Renee Mora DO [address] [place] [address] PCP - General Family Medicine 06/04/24 Shanae Zarate MD [address] [place] [address] Consulting Physician Cardiology 10/13/20 documented as of this encounter
--- OUTSIDE RECORDS SUMMARY | 2025-04-11 11:42 | XMS_ITS | Encounter Summary ---
Author Organization [facility] Address [address] [place] [address] Care Team Providers Care Lap Cutter Name Role Phone Romero Licea MD Primary Care Provi clifton Shana Mike NP Unavailable [phone] Julius Canseco MD Unavailable Encounter Details Date Type Department Care Team (Late st Contact Info) Description 01/21/2022 Procedure Pass [facility] Surgery [address] [place] [address] Social History Tobacco Use Types [...] on filedocumented in this encounter Care Teams Lap Cutter Relationship Specialty Start Date End Date Romero Licea MD [address] [place], [place] [id number] PCP - General Family Medicine 08/03/21 Shana Mike NP [address] [place] [address] Nurse Practitioner Physical Medicine and Rehabilitation 11/15/22 Julius Canseco MD [address] [place] [address] Consulting Physician Physical Medicine and Rehabilitation 04/11/23 documented as of this encounter
--- OUTSIDE RECORDS SUMMARY | 2025-04-11 11:42 | XMS_ITS | Encounter Summary ---
Author Organization [facility] Address [address] [place] [address] Care Team Providers Care Squeegee Operator Name Role Phone Romero Licea MD Primary Care Provider Shanae Zarate MD Unavailable Princess Monroy TEST DESIGN ENGINEER Unavailable [phone] Luh NashD Unavailable Cathy Tee RN Unavailable Romero Licea MD Unavailable Renee Mora DO Unavailable Renee Mora DO Primary Care Provider Reason for Visit * Reason Comments Med Refill Encounter Details Date Type Department Care Team (Late st Contact Info) Description 06/27/2019 Refill [facility] [address] [place], [place] [address] Nirmal Huizar MD [address] [place] [address] Social History Tobacco Use Types Packs/Day Years Used Date Smoking Tobacco: Never Assessed Sex and Gender Information Value Date Recorded Sex Assigned at Not on file Legal Sex Male 1:57 AM [facility] Gender Identity Not on file Sexual Orientation Not on file documented as of this encounter Plan of Treatment Not on file documented as of this encounter Visit Diagnoses Not on filedocumented in this encounter Care Teams Squeegee Operator Relationship Specialty Start Date End Date Romero Licea MD PCP - General Family Medicine 06/27/19 05/27/24 Romero Licea MD [address] [place] [address] PCP - Medicare Advantage - Attributed PCP 10/09/22 07/10/23 Renee Mora DO [address] [place] [address] PCP - Medicare Advantage - Attributed PCP 07/11/23 06/09/24 Renee Mora DO [address] [place] [address] PCP - General Family Medicine 06/04/24 Shanae Zarate MD [address] [place] [address] Consulting Physician Cardiology 10/13/20 Princess Monroy LCSW [address] [place] [address] Clay Washer Fourth Hand 10/31/20 05/27/24 Luh Nash, HunterD [address] [place] [address] Clinical Pharmacist Pharmacy 11/24/20 03/04/22 Cathy Tee, KAMERON [address] [place] [address] [facility] [address] Examining Officer ( Nurse) Care Management 08/17/21 documented as of this encounter
--- OUTSIDE RECORDS SUMMARY | 2025-04-11 11:42 | XMS_ITS | Encounter Summary ---
Author Organization [facility] Address [address] [place] [address] Care Team Providers Care Power Line Installer And Repairer Name Role Phone Romero Licea MD Primary Care Provi clifton Shana Mike NP Unavailable [phone] Julius Canseco MD Unavailable Encounter Details Date Type Department Care Team (Late st Contact Info) Description 02/04/2022 Procedure Pass [facility] Surgery [address] [place] [address] Social History Tobacco Use Types Packs/Day Years Used Date Smoking Tobacco: Former Cigarettes 2 10 Smokeless Tobacco: Never Alcohol Use Standard Drinks/Week Comments No 0 (1 standard drink = 0.6 oz pur e alcohol) Sex and Gender Information Value Date Recorded Sex Assigned at Not on file Legal Sex Male 10:38 AM [facility] Gender Identity Not [...] on filedocumented in this encounter Care Teams Power Line Installer And Repairer Relationship Specialty Start Date End Date Romero Licea MD [address] [place], [place] [id number] PCP - General Family Medicine 08/03/21 Shana Mike NP [address] [place] [address] Nurse Practitioner Physical Medicine and Rehabilitation 11/15/22 Julius Canseco MD [address] [place] [address] Consulting Physician Physical Medicine and Rehabilitation 04/11/23 documented as of this encounter
--- OUTSIDE RECORDS SUMMARY | 2025-04-11 11:42 | XMS_ITS | Encounter Summary ---
Author Organization [facility] Address [address] [place] [address] Care Team Providers Care Knurling Machine Tender Name Role Phone Romero Licea MD Primary Care Provi clifton Shana Mike NP Unavailable [phone] Julius Canseco MD Unavailable Encounter Details Date Type Department Care Team (Late st Contact Info) Description 10/08/2021 Procedure Pass [facility] Surgery [address] [place] [address] Social History Tobacco Use Types Packs/Day Years Used Date Smoking Tobacco: Former Cigarettes 2 10 Smokeless Tobacco: Never Alcohol Use Standard Drinks/Week Comments No 0 (1 standard drink = 0.6 oz pur e alcohol) Sex and Gender Information Value Date Recorded Sex Assigned at Not on file Legal Sex Male 10:38 AM [facility] Gender Identity Not on file Sexual [...] on filedocumented in this encounter Care Teams Knurling Machine Tender Relationship Specialty Start Date End Date Romero Licea MD [address] [place], [place] [id number] PCP - General Family Medicine 08/03/21 Shana Mike NP [address] [place] [address] Nurse Practitioner Physical Medicine and Rehabilitation 11/15/22 Julius Canseco MD [address] [place] [address] Consulting Physician Physical Medicine and Rehabilitation 04/11/23 documented as of this encounter
--- OUTSIDE RECORDS SUMMARY | 2025-04-11 11:43 | XMS_ITS | Clinical Summary ---
Author Organization [facility] Address [address] [place] [address] Care Team Providers Care Electronic Assembler Name Role Phone Romero Licea MD Primary Care Provi clifton Shana Mike NP Unavailable [phone] Julius Canseco MD Unavailable Allergies No known [...] (10/06/2021): Added automatically from request for surgery [id number] Lumbar radiculopathy 10/05/2021 Overview (10/05/2021): Added automatically from request for surgery [id number] Fever 09/23/2017 Asthma 09/21/2017 HIV (human immunodeficiency virus infection) COPD (chronic obstructive pulmonary disease) Hypertension 09/21/2017 Polycythemia 09/21/2017 Hyponatremia 09/21/2017 Dehydration 09/20/[address] scan, stomach 09/20/2017 Overview (09/23/2017): Added automatically from request for surgery [id number] Social History Tobacco Use Types Packs/Day Years [...] Comments Blood Pressure 128/72 04/11/2023 5:00 PM [facility] Pulse 66 04/11/2023 5:00 PM [facility] Temperature 36.6 C (97.8 F) 04/11/2023 2:43 PM [facility] Respiratory Rate 16 04/11/2023 5:00 PM [facility] Oxygen Saturation 99% 04/11/2023 5:00 PM [facility] Inhaled Oxygen Concentration - - Weight 90.7 [...] PM MST CT CHEST ABDOMEN PELVIS W IV CONTRAST Routine 09/21/2017 8:44 PM MST HEMOGLOBIN A1C Routine 09/21/2017 4:47 AM MST from Last 3 Months or Most Recently Relevant to Health Maintenance Results * COLONOSCOPY (08/03/2021 1:34 PM MST) us Franky Gill MD GI PROCEDURE ORDERABLES Fin al Result * CT chest abdomen pelvis with contrast (09/21/2017 8:44 PM [facility]) Anatomical Region Laterality Modality Abdomen, Chest, Pelvis, Hip Comp uted Tomography 09/21/2017 8:42 PM [facility] Narrative 09/21/2017 8:55 PM [facility] CT THORAX, ABDOMEN AND PELVIS [...] * (ABNORMAL) Hemoglobin A1c (09/21/2017 4:47 AM [facility]) Hemoglobin A1C 8.5(H) <=5.7 % 09/21/2017 9:55 AM [facility] EAG 197.3 mg/dL 09/21/2017 9:55 AM [facility] Blood BLOOD SPECIMEN / Unknown Venipuncture / Unknown 09/21/2017 4:47 AM [facility] 09/21/2017 4:57 AM MST Narrative [facility] - 09/21/2017 9:55 AM [facility] The [place] Diabetes [employer] (ADA) guidelines for interpreting Hemoglobin A1C are as follows: Non-Diabetic patient: <5.7% Increased risk for future Diabetes: 5.7-6.4% ADA diagnostic criteria for Diabetes: >6.4% Values for patients with Diabetes: Result <7.0%: Meets ADA's recommendation goal for therapy. Result 7.0-8.0%: Exceeds ADA's recommended goal. Result >8.0%: ADA recommends reevaluation of therapy. us Dre Perez MD LAB BLOOD ORDERABLES Bess chavez Result [facility] [address] [id number], [facility] [phone] from Last 3 Months or Most Recently Relevant to Health Maintenance Insurance [facility] MEDICARE ADVANTAGE [facility] MEDICARE ADVANTAGE [employer] MEDICARE ADVANTAGE C[employer]NA MEDICARE ADVANTAGE Advance Directives For more information, please contact: [phone] * Full Code (Latest Code Status on File) Date Activated Date Inactivated Comments 09/20/2017 8:25 PM 09/26/2017 4:14 PM Care Teams Electronic Assembler Relationship Specialty Start Date End Date Romero Licea MD [address] [place] [id number] PCP - General Family Medicine 08/03/21 Shana Mike NP [address] [place] [id number] Nurse Practitioner Physical Medicine and Rehabilitation 11/15/22 Julius Canseco MD [address] [place], [place] [id number] Consulting Physician Physical Medicine and Rehabilitation 04/11/23
--- OUTSIDE RECORDS SUMMARY | 2025-04-11 11:43 | XMS_ITS | Encounter Summary ---
Author Organization [facility] Address [address] [place] [address] Care Team Providers Care Room Attendants Name Role Phone Romero Licea MD Primary Care Provi clifton Shana Mike ZINC ETCHER Unavailable [phone] Julius Canseco MD Unavailable Encounter Details Date Type Department Care Team (Late st Contact Info) Description 04/11/2023 Procedure Pass [facility] Surgery [address] [place] [address] Social History Tobacco Use Types Packs/Day Years Used Date Smoking Tobacco: Former Cigarettes 2 10 Smokeless Tobacco: Never Alcohol Use Standard Drinks/Week Comments No 0 (1 standard drink = 0.6 oz pur e alcohol) Sex and Gender Information Value Date Recorded Sex Assigned at Not on file Legal Sex Male 10:38 AM [facility] Gender Identity Not on file Sexual Orientation Not on file documented as of this encounter Plan of Treatment Not on file documented as of this encounter Visit Diagnoses Not on filedocumented in this encounter Care Teams Room Attendants Relationship Specialty Start Date End Date Romero Licea MD [address] [place], [place] [phone] PCP - General Family Medicine 08/03/21 Shana Mike, JAYNA [address] [place], [place] [id number] Nurse Practitioner Physical Medicine and Rehabilitation 5/8/23 Julius Canseco MD [address] [place] [address] Consulting Physician Physical Medicine and Rehabilitation 04/11/23 documented as of this encounter
--- OUTSIDE RECORDS SUMMARY | 2025-04-11 11:43 | XMS_ITS | Encounter Summary ---
Author Organization [facility] Address [address] [place] [address] Care Team Providers Care Vat Skimmer Name Role Phone Romero Licea MD Primary Care Provi clifton Shana Mike PROPERTY VALUER Unavailable [phone] Julius Canseco MD Unavailable Encounter Details Date Type Department Care Team (Late st Contact Info) Description 04/25/2023 Procedure Pass [facility] Surgery [address] [place] [address] Social History Tobacco Use Types [...] on filedocumented in this encounter Care Teams Vat Skimmer Relationship Specialty Start Date End Date Romero Licea MD [address] [place], [place] [phone] PCP - General Family Medicine 08/03/21 Shana Mike, JAYNA [address] [place], [place] [phone] Nurse Practitioner Physical Medicine and Rehabilitation 5/8/23 Julius Canseco MD [address] [place] [address] Consulting Physician Physical Medicine and Rehabilitation 04/11/23 documented as of this encounter
== END 2025-04-11 11:17 | disposition home or self-care (01) ==
LOC: HO.HUSH 10:17
PROVIDERS: PCP Physician Assistant; Visit Provider Urology
DX: R31.9 Hematuria, unspecified (principal)
CPT/HCPCS: 99203

== ENCOUNTER 2025-04-11 10:16 | Outpatient (REF) | payer MEDICARE, SELFPAY ==
--- OUTSIDE RECORDS SUMMARY | 2022-12-21 20:00 | XMS_ITS | Continuity of Care Document ---
Author Organization [facility] ter Address [address] [facility] [place] [phone] Phone Care Team Providers Care Health Social Work Professor Name Role Phone Unavailable Unavailable Unavailable Medications [...] Location Reason(s) For Visit Diagnoses Date Provider [facility], [address] [place] [address] [place], [id number], tel:[phone] Conversion Location [facility] No Information No Information [facility], [facility] [address] [place], [id number], tel:[phone] Conversion Location [place] Type 2 diabetes mellitus with mild nonproliferative diabetic retinopathy without macular edema, left eyeType 2 diabetes mellitus with mild nonproliferative diabetic retinopathy without macular edema, left eye Oct-1 1 [facility] John. [address] [address], [place], [place], [id number], [place]. tel:[phone] Family History Family Member Type Diagnosis Age At Onset No Information Payers Payer name Insurance type Covered constitution party ID Authoriza tion(s) No Information Social History Type Description Quantity Date Captured Comments Sex Male Smoking Status No Information Chief Complaint And Reason For Visit No Information History Of Present Illness Encounter Date Complaint History Of Prese nt Illness No Information Instructions Date Instruction Additional Infor mation No Information Assessments Type Assessment Date No Information
== END 2025-04-11 10:17 | disposition home or self-care (01) ==
LOC: HO.LNP 10:16
PROVIDERS: PCP Physician Assistant; Visit Provider Urology
DX: R31.0 Gross hematuria (principal); N39.0 Urinary tract infection, site not specified
CPT/HCPCS: 51798; 81003; 88112; 99202

== ENCOUNTER → 2025-04-17 12:58 | Outpatient (REF) | payer MEDICARE, SELFPAY ==
--- NOTE | 2025-04-17 13:01 | CA_ITS ---
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 Study Quality: Fair/Contrast ECG Rhythm: Sinus Conclusions: - 1. Normal LV ejection fraction of 60 65% with grade 1 diastolic dysfunction 2. Mild calcific aortic and mitral valve changes noted with normal cardiac valve with a Dopplers 3. Mildly dilated ascending aorta at 3.8 cm 4. No gross pericardial effusion Findings Procedure Information Contrast agent, definity, is being given per protocol without apparent complications. The study quality is limited by the patients inability to tolerate the test. Left Ventricle Normal left ventricular size, thickness, and systolic function. The visually estimated ejection fraction is between 60-65%. Spectral Doppler is indicative of an impaired relaxation filling pattern. E/E prime ratio is <8, consistent with normal filling pressures. Evidence suggests grade I (mild) diastolic dysfunction. Right Ventricle Normal right ventricular cavity size and systolic function. Atria The left atrium is likely dilated. There is no evidence of interatrial shunt. The right atrium is normal in size. Aortic Valve Normal aortic valve structure and function. There is mild calcification of the aortic valve. There is no aortic valve stenosis. There is no aortic valve regurgitation. Mitral Valve Normal mitral valve structure and function. There is mild mitral annular calcification. There is trace mitral valve regurgitation. There is no mitral valve stenosis. Pulmonic Valve The pulmonic valve is likely normal. Tricuspid Valve Likely normal tricuspid valve structure and function. Tricuspid regurgitation envelope is inadequate for calculation of right ventricular systolic pressure. Normal right atrial pressure. Great Vessels The pulmonary artery was not well visualized. There is mild dilatation of the ascending aorta measuring 3.80 cm. Small plaque is seen in the sino tubular ridge. Venous The inferior vena cava is normal in size and collapses greater than 50% with inspiration. Pericardium/Pleural There is no evidence of pericardial effusion. Prior Study Comparison No prior study available for comparison. Measurements 2D Linear Measurements IVSd: 0.88 0.6-0.9/0.6-1.0 cm LVIDd: 4.72 3.9-5.3/4.2-5.9 cm LVIDd Index: 2.38 2.4-3.2/2.2-3.1 cm/m2 LVIDs: 3.07 2.0-3.6 cm LVPWd: 0.85 0.7-1.1 cm LA Diam: 4.20 2.7-3.8/3.0-4.0 cm LAIDs Index: 2.12 1.5-2.3 cm/m2 LV Mass: 169.19 67-162/88-224 g LV Mass Index: 85.45 43-95/49-115 g/m2 LVOT Diam: 2.60 3.0+(-)1.3 cm 2D Systolic Function EF 4C: 63.30 >55% Mitral Valve MV Pk E: 0.60 MV PK A: 0.69 MV Decel Time: 202.00 E/A: 0.90 E'Lateral: 9.68 E'Medial: 4.79 E/E' Med: 12.60 E/E' Lat: 6.20 PHT: 59.00 MVA PHT: 3.73 Decel Norton: 2.99 Aortic Valve AoV Pk Ernie: 0.95 AoV Mn Ernie: 0.71 AoV VTI: 0.18 AoV Pk Grad: 4.00 Aov Mn Grad: 2.00 YOSELIN Cont.VTI: 4.84 LVOT LVOT Pk Ernie: 0.69 LVOT Mn Ernie: 0.49 LVOT VTI: 0.16 LVOT Pk Grad: 2.00 LVOT Mn Grad: 1.00 LVOT Diam: 2.60 LVOT Area: 5.31 Diastolic Function MV Pk E: 0.60 MV Pk A: 0.69 E/A: 0.90 E'Medial: 4.79 E/E' Med: 12.60 E' Laterial: 9.68 E/E' Lat: 6.20 Right Ventricle TAPSE (mm): 19.50 TVS' Ernie: 15.70 Tricuspid Valve RA Press: 8.00 Great Vessels Aorta Sinus of Valsalva: 3.70 2.0-3.5 cm Ao Asc: 3.80 2.1-3.4 cm Pulmonary Veins Pulm Vein S/D 1.40 Pulmonary Valve PV Pk Ernie: 0.76 Peak PV Grad: 2.00 Updated in Other Vendor System with Status of Final Elvin Steel MD electronically signed on 04/18/2025 11:13:52 AM with status of Final
== END ==
LOC: HO.CARD 12:58
PROVIDERS: PCP Physician Assistant; Visit Provider Internal Medicine
DX: I25.10 Atherosclerotic heart disease of native coronary artery without angina pectoris (principal)
CPT/HCPCS: 93306; Q9957

== ENCOUNTER → 2025-04-17 13:01 | Outpatient (BNV) | payer MEDICARE, SELFPAY | PROVIDERS: PCP Physician Assistant; Visit Provider Internal Medicine Cardiovascular Disease | DX: I34.81 Nonrheumatic mitral (valve) annulus calcification (principal); I35.8 Other nonrheumatic aortic valve disorders; I25.10 Atherosclerotic heart disease of native coronary artery without angina pectoris | CPT/HCPCS: 93306 ==

== ENCOUNTER 2025-04-23 15:23 | Outpatient (AMB) | payer MEDICARE, SELFPAY ==
[2025-04-23 15:27] VITALS: BP 136/78; PULSE 65; O2SAT 96
--- NOTE | 2025-04-23 15:27 | A.OFFVIS_ITS ---
Vital Signs 04/23/25 15:27 Height 5 ft 9 in BMI Reason not done Patient refused/unable BP 136/78 Blood Pressure Location Rt brachial Position Sitting Pulse 65 Pulse Source Pulse Oximeter Pulse Oximetry (%) 96 Oxygen Delivery Method Room Air Intake Visit Reasons: copd Allergies Seasonal Allergies Allergy (Mild, Verified 04/23/25 15:30) sneezing HPI HPI copd: Details: Kvng is pleasant 69 year old male, never smoker, mild COPD, prostate cancer, DMII, HIV and CAD. He has been using Spiriva as well as Breo with suboptimal effect. At the last visit, patient was treated with bronchopneumonia with cefpodoxime as well as prednisone. He reports moderate improvement in symptoms however continues with productive cough and wheezing. Denies fevers, chills or chest congestion. He does have nebulized therapy however has been using infrequently. Denies any visits to urgent care or hospitalizations related to respiratory distress. [facility] Medical History (Updated 04/24/25 @ 23:06 by Maria Isabel Ortiz NP) Weight loss Hyperlipidemia Diabetes High blood pressure Surgical History (Updated 03/19/25 @ 11:28 by Mic Trinidad [facility]) H/O colonoscopy H/O partial thyroidectomy Hx of heart artery stent Family History Father History of quadruple bypass Lung cancer Mother No problems noted. Social History Housing: House Housing Other:: Lives with [facility]. Normally lived in an , but is currently in the shop Alcohol intake: never Patient Tobacco Use Status: Never used Tobacco e-Cigarette/Vaping Use: Never Used Second Hand Smoke Exposure: Yes service: No Current occupational status: retired Cognitive needs: No Hearing needs: Yes (Hearing aids. Did not put them in today. ) Vision needs: No Review of Systems Const Denies chills, Denies excessive sweating, Denies fever(s), Denies headache(s) and Denies night sweats Eyes Denies dry eyes, Denies irritation and Denies itchy eyes ENT Reports Normal hearing present, Denies headache(s), Denies nasal congestion, Denies nasal discharge, Denies post nasal drip and Denies sore throat Card Denies chest pain, Denies chest pain at rest, Denies chest pain with activity, Denies claudication, Denies leg edema, Reports dyspnea on exertion, Denies orthopnea and Denies paroxysmal nocturnal dyspnea Resp Denies chest congestion, Reports cough, Denies hemoptysis, Denies excessive phlegm production, Denies pain on inspiration, Denies pain with cough, Reports dyspnea on exertion, Denies stridor and Reports wheezing Musc Denies myalgias Neuro Reports Normal hearing present and Denies headache(s) Endo Denies excessive sweating Constantine/Lymph Denies lymphadenopathy Aller/Immun Denies itchy eyes, Denies seasonal rhinorrhea and Reports wheezing Physical Exam Vital Signs: Last Vital Signs Pulse 65 04/23/25 15:27 BP 136/78 04/23/25 15:27 Pulse Ox 96 04/23/25 15:27 Oxygen Delivery Method Room Air 04/23/25 15:27 Const General: cooperative, healthy appearing, comfortable, no acute distress, well developed and alert Orientation/consciousness: patient oriented x3 Limitations: no limitations HEENT Head: Yes normal to inspection, Yes normocephalic and Yes atraumatic Ears: external ears normal Eyes General: appearance normal, both eyes and all related structures Eyelids: Yes eyelids normal Sclerae: sclerae normal EOM: EOMs intact bilaterally Neck Neck: Yes normal visual inspection and Yes no lymphadenopathy Lymphatic: no lymphadenopathy noted Chest Chest palpation & inspection: normal inspection of the chest Resp Effort & Inspection: normal respiratory effort, able to speak in complete sentences, no audible wheezes, no cough, no stridor, not tachypneic, no tripod positioning and no use of accessory muscles Auscultation: wheezes and diminished lung sounds Cardio Jugular venous distension: no JVD Rate: regular rate Rhythm: regular rhythm Skin Other: warm, dry General skin exam: no rashes or lesions noted Neuro General: patient oriented x3 Cranial nerves: Yes Normal hearing present Cognition (Neuro): normal cognition Gait exam (Neuro): Normal gait present Extrem General: Yes normal to inspection, Yes capillary refill normal, Yes no clubbing, cyanosis or edema and Yes no pedal edema Psych Appearance: grossly normal and well kempt Speech and movement: Normal speech and movement present and Clear speech present Affect: normal affect Attitude: cooperative Thought process: Normal thought process present Thought content: Normal thought content present Insight: Good insight present (Psych) Judgement: Good judgement present (Psych) Assessment & Plan Assessment & Plan (1) COPD (chronic obstructive pulmonary disease): Code(s): J44.9 - Chronic obstructive pulmonary disease, unspecified Category: Medical (2) Dyspnea: Code(s): R06.00 - Dyspnea, unspecified Category: Medical (3) Environmental allergies: Code(s): Z91.09 - Other allergy status, other than to drugs and biological substances Category: Medical Plan Will treat continued wheezing with longer course of prednisone. Discussed adverse effects including potential for hyperglycemia. He is aware to contact office if symptoms do not improve or seek emergent care if symptoms worsen. Advised to continue Spiriva, Breo and albuterol MDI PRN, encouraged use of nebulized therapy. Given persistence of cough, will send for chest ct for further evaluation and likely need to send for sputum, unable to provide today. All questions were answered and patient is in agreement of plan. Will follow up to review results or sooner if needed. Orders: Orders CT chest wo IV con Today R05.3 - Chronic cough, Z21 - Asymptomatic human immunodeficiency virus [HIV] infection status, Z87.01 - Personal history of pneumonia (recurrent) Medications: New prednisone see taper instructions; 40 mg Daily x3 days, 30 mg daily x3 days, 20 mg daily x3 days, 10 mg daily x3 days 10 mg PO DIRECTED 30 tabs 0RF Coding Level of Care Code Est Pt Level 4 (58395) Diagnoses COPD (chronic obstructive pulmonary disease) J44.9 Dyspnea R06.00 Environmental allergies Z91.09
--- OUTSIDE RECORDS SUMMARY | 2025-04-23 18:11 | XMS_ITS | Encounter Summary ---
Author Organization [facility] Address [address] [place] [address] Care Team Providers Care Latex Ribbon Machine Operator Name Role Phone Romero Licea MD Primary Care Provi clifton Shana Mike NP Unavailable [phone] Julius Canseco MD Unavailable Encounter Details Date Type Department Care Team (Late st Contact Info) Description 10/08/2021 Procedure Pass [facility] Surgery [address] [place] [address] Social History Tobacco Use Types [...] on filedocumented in this encounter Care Teams Latex Ribbon Machine Operator Relationship Specialty Start Date End Date Romero Licea MD [address] [place], [place] [phone] PCP - General Family Medicine 08/03/21 Shana Mike NP [address] [place] [address] Nurse Practitioner Physical Medicine and Rehabilitation 11/15/22 Julius Canseco MD [address] [place] [address] Consulting Physician Physical Medicine and Rehabilitation 04/11/23 documented as of this encounter
--- OUTSIDE RECORDS SUMMARY | 2025-04-23 18:11 | XMS_ITS | Encounter Summary ---
Author Organization [facility] Address [address] [place] [address] Care Team Providers Care Griddle Attendant Name Role Phone Romero Licea MD Primary Care Provi clifton Shana Mike NP Unavailable [phone] Julius Canseco MD Unavailable Encounter Details Date Type Department Care Team (Late st Contact Info) Description 10/22/2021 Procedure Pass [facility] Surgery [address] [place] [address] Social History Tobacco Use Types Packs/Day Years Used Date Smoking Tobacco: Former Cigarettes 2 10 Smokeless Tobacco: Never Alcohol Use Standard Drinks/Week Comments No 0 (1 standard drink = 0.6 oz pur e alcohol) Sex and Gender Information Value Date Recorded Sex Assigned at Not on file Legal Sex Male 10:38 AM [facility] Gender Identity Not on file Sexual Orientation [...] on filedocumented in this encounter Care Teams Griddle Attendant Relationship Specialty Start Date End Date Romero Licea MD [address] [place], [place] [phone] PCP - General Family Medicine 08/03/21 Shana Mike NP [address] [place] [address] Nurse Practitioner Physical Medicine and Rehabilitation 11/15/22 Julius Canseco MD [address] [place] [address] Consulting Physician Physical Medicine and Rehabilitation 04/11/23 documented as of this encounter
--- OUTSIDE RECORDS SUMMARY | 2025-04-23 18:11 | XMS_ITS | Encounter Summary ---
Author Organization [facility] Address [address] [place] [address] Care Team Providers Care Cat Scan Tech Name Role Phone Romero Licea MD Primary Care Provi clifton Shana Mike OBSTETRICAL NURSE Unavailable [phone] Julius Canseco MD Unavailable Encounter Details Date Type Department Care Team (Late st Contact Info) Description 04/25/2023 Procedure Pass [facility] Surgery [address] [place] [address] Social History Tobacco Use Types Packs/Day Years Used Date Smoking Tobacco: Former Cigarettes 2 10 Smokeless Tobacco: Never Alcohol Use Standard Drinks/Week Comments No 0 (1 standard drink = 0.6 oz pur e alcohol) Sex and Gender Information Value Date Recorded Sex Assigned at Not on file Legal Sex Male 10:38 AM [facility] Gender Identity Not on file Sexual Orientation Not on file documented as of this encounter Plan of Treatment Not on file documented as of this encounter Visit Diagnoses Not on filedocumented in this encounter Care Teams Cat Scan Tech Relationship Specialty Start Date End Date Romero Licea MD [address] [place], [place] [phone] PCP - General Family Medicine 08/03/21 Shana Mike, JAYNA [address] [place], [place] [phone] Nurse Practitioner Physical Medicine and Rehabilitation 5/8/23 Julius Canseco MD [address] [place] [address] Consulting Physician Physical Medicine and Rehabilitation 04/11/23 documented as of this encounter
--- OUTSIDE RECORDS SUMMARY | 2025-04-23 18:11 | XMS_ITS | Encounter Summary ---
Author Organization [facility] Address [address] [place] [address] Care Team Providers Care Parts Room Associate Name Role Phone Ubaldo Spring MD Primary Care Provider [phone] Romero Licea MD Primary Care Provi clifton Shana Mike NP Unavailable [phone] Julius Canseco MD Unavailable Encounter Details Date Type Department Care Team (Late st Contact Info) Description 09/24/2017 Procedure Pass [facility] Endoscopy [address] [place] [address] Social History Tobacco Use Types [...] on filedocumented in this encounter Care Teams Parts Room Associate Relationship Specialty Start Date End Date Ubaldo Spring MD PCP - General Family Medicine 09/20/17 08/02/21 Romero Licea MD [address] [place] [address] PCP - General Family Medicine 08/03/21 Shana Mike NP [address] [place] [address] Nurse Practitioner Physical Medicine and Rehabilitation 11/15/22 Julius Canseco MD [address] [place] [address] Consulting Physician Physical Medicine and Rehabilitation 04/11/23 documented as of this encounter
--- OUTSIDE RECORDS SUMMARY | 2025-04-23 18:11 | XMS_ITS | Encounter Summary ---
Author Organization [facility] Address [address] [place] [address] Care Team Providers Care Chicken Picker Name Role Phone Romero Licea MD Primary Care Provi clifton Shana Mike NP Unavailable [phone] Julius Canseco MD Unavailable Encounter Details Date Type Department Care Team (Late st Contact Info) Description 02/04/2022 Procedure Pass [facility] Surgery [address] [place] [address] Social History Tobacco Use Types Packs/Day Years Used Date Smoking Tobacco: Former Cigarettes 2 10 Smokeless Tobacco: Never Alcohol Use Standard Drinks/Week Comments No 0 (1 standard drink = 0.6 oz pur e alcohol) Sex and Gender Information Value Date Recorded Sex Assigned at Not on file Legal Sex Male 10:38 AM [facility] Gender Identity Not on file [...] on filedocumented in this encounter Care Teams Chicken Picker Relationship Specialty Start Date End Date Romero Licea MD [address] [place], [place] [phone] PCP - General Family Medicine 08/03/21 Shana Mike NP [address] [place] [address] Nurse Practitioner Physical Medicine and Rehabilitation 11/15/22 Julius Canseco MD [address] [place] [address] Consulting Physician Physical Medicine and Rehabilitation 04/11/23 documented as of this encounter
--- OUTSIDE RECORDS SUMMARY | 2025-04-23 18:11 | XMS_ITS | Encounter Summary ---
Author Organization [facility] Address [address] [place] [address] Care Team Providers Care Leasing Agent Name Role Phone Romero Licea MD Primary Care Provi clifton Shana Mike ALTERATION WORKROOM SUPERVISOR Unavailable [phone] Julius Canseco MD Unavailable Encounter Details Date Type Department Care Team (Late st Contact Info) Description 08/03/2021 Procedure Pass [facility] Endoscopy [address] [place] [address] Social History Tobacco Use Types [...] on filedocumented in this encounter Care Teams Leasing Agent Relationship Specialty Start Date End Date Romero Licea MD [address] [place], [place] [phone] PCP - General Family Medicine 08/03/21 Shana Mike NP [address] [place] [address] Nurse Practitioner Physical Medicine and Rehabilitation 11/15/22 Julius Canseco MD [address] [place], [place] [phone] Consulting Physician Physical Medicine and Rehabilitation 04/11/23 documented as of this encounter
--- OUTSIDE RECORDS SUMMARY | 2025-04-23 18:11 | XMS_ITS | Encounter Summary ---
Author Organization [facility] Address [address] [place] [address] Care Team Providers Care Bar Machine Operator Name Role Phone Romero Licea MD Primary Care Provi clifton Shana Mike CUSTOMER STRATEGY MANAGER Unavailable [phone] Julius Canseco MD Unavailable Encounter Details Date Type Department Care Team (Late st Contact Info) Description 04/11/2023 Procedure Pass [facility] Surgery [address] [place] [address] Social History Tobacco Use Types Packs/Day Years Used Date Smoking Tobacco: Former Cigarettes 2 10 Smokeless Tobacco: Never Alcohol Use Standard Drinks/Week Comments No 0 (1 standard drink = 0.6 oz pur e alcohol) Sex and Gender Information Value Date Recorded Sex Assigned at Not on file Legal Sex Male 10:38 AM [facility] Gender Identity Not on file Sexual Orientation Not on file documented as of this encounter Plan of Treatment Not on file documented as of this encounter Visit Diagnoses Not on filedocumented in this encounter Care Teams Bar Machine Operator Relationship Specialty Start Date End Date Romero Licea MD [address] [place], [place] [phone] PCP - General Family Medicine 08/03/21 Shana Mike, JAYNA [address] [place], [place] [phone] Nurse Practitioner Physical Medicine and Rehabilitation 5/8/23 Julius Canseco MD [address] [place] [address] Consulting Physician Physical Medicine and Rehabilitation 04/11/23 documented as of this encounter
--- OUTSIDE RECORDS SUMMARY | 2025-04-23 18:11 | XMS_ITS | Encounter Summary ---
Author Organization [facility] Address [address] [place] [address] Care Team Providers Care Rock Splitter Name Role Phone Romero Licea MD Primary Care Provi clifton Shana Mike NP Unavailable [phone] Julius Canseco MD Unavailable Encounter Details Date Type Department Care Team (Late st Contact Info) Description 01/21/2022 Procedure Pass [facility] Surgery [address] [place], [place] [...] on filedocumented in this encounter Care Teams Rock Splitter Relationship Specialty Start Date End Date Romero Licea MD [address] [place], [place] [id number] PCP - General Family Medicine 08/03/21 Shana Mike NP [address] [place] [address] Nurse Practitioner Physical Medicine and Rehabilitation 11/15/22 Julius Canseco MD [address] [place] [address] Consulting Physician Physical Medicine and Rehabilitation 04/11/23 documented as of this encounter
--- OUTSIDE RECORDS SUMMARY | 2025-04-23 18:11 | XMS_ITS | Encounter Summary ---
Author Organization [facility] Address [address] [place] [address] Care Team Providers Care Gate Cutter Name Role Phone Ubaldo Spring MD Primary Care Provider + [phone] Romero Licea MD Primary Care Provi clifton Shana Mike NP Unavailable [phone] Julius Canseco MD Unavailable Encounter Details Date Type Department Care Team (Late st Contact Info) Description 09/23/2017 Procedure Pass [facility] Endoscopy [address] [place] [address] Social History Tobacco Use Types Packs/Day Years Used Date Smoking Tobacco: Former Cigarettes 2 10 2 - 2010 Smokeless Tobacco: Never Alcohol Use Standard Drinks/Week Comments No 0 (1 standard drink = 0.6 oz pur e alcohol) Sex and Gender Information Value Date Recorded Sex Assigned at Not on file Legal Sex Male 10:38 AM [facility] Gender Identity Not on file Sexual Orientation Not on file documented as of this encounter Plan of Treatment Not on file documented as of this encounter Visit Diagnoses Not on filedocumented in this encounter Care Teams Gate Cutter Relationship Specialty Start Date End Date Ubaldo Spring MD PCP - General Family Medicine 09/20/17 08/02/21 Romero Licea MD [address] [place] [address] PCP - General Family Medicine 08/03/21 Shana Mike NP [address] [place] [address] Nurse Practitioner Physical Medicine and Rehabilitation 11/15/22 Julius Canseco MD [address] [place] [address] Consulting Physician Physical Medicine and Rehabilitation 04/11/23 documented as of this encounter
--- OUTSIDE RECORDS SUMMARY | 2025-04-23 18:12 | XMS_ITS | Clinical Summary ---
Author Organization [facility] Address [address] [place] [address] Care Team Providers Care Bullard Machine Operator Name Role Phone Romero Licea MD Primary Care Provi clifton Shana Mike NP Unavailable [phone] Julius Canseco MD Unavailable Allergies No known [...] (10/06/2021): Added automatically from request for surgery [id number] Lumbar radiculopathy 10/05/2021 Overview (10/05/2021): Added automatically from request for surgery [id number] Fever 09/23/2017 Asthma 09/21/2017 HIV (human immunodeficiency virus infection) COPD (chronic obstructive pulmonary disease) Hypertension 09/21/2017 Polycythemia 09/21/2017 Hyponatremia 09/21/2017 Dehydration 09/20/[address] scan, stomach 09/20/2017 Overview (09/23/2017): Added automatically from request for surgery [id number] Social History Tobacco Use Types Packs/Day Years Used Date Smoking Tobacco: Former Cigarettes 2 10 Smokeless Tobacco: Never Tobacco Cessation:Counseling Given: Not Answered Alcohol Use Standard Drinks/Week Comments No 0 (1 standard drink = 0.6 oz pur e alcohol) Sex and Gender Information Value Date Recorded Sex Assigned at Not on file Legal Sex Male 10:[address] [facility] Gender Identity Not on file Sexual Orientation Not on file Last Filed Vital Signs Vital Sign Reading Time Taken Comments Blood Pressure 128/72 04/11/2023 5:[address] [facility] Pulse 66 04/11/2023 5:[address] [facility] Temperature 36.6 C (97.8 F) 04/11/2023 2:[address] [facility] Respiratory Rate 16 04/11/2023 5:[address] [facility] Oxygen Saturation 99% 04/11/2023 5:[address] [facility] Inhaled Oxygen Concentration - - [...] abdomen pelvis with contrast (09/21/2017 8:[address] [facility]) Anatomical Region Laterality Modality Abdomen, Chest, Pelvis, Hip Comp uted Tomography 09/21/2017 8:[address] [facility] Narrative 09/21/2017 8:[address] [facility] CT THORAX, ABDOMEN AND PELVIS [...] * (ABNORMAL) Hemoglobin A1c (09/21/2017 4:[address] [facility]) Hemoglobin A1C 8.5(H) <=5.7 % 09/21/2017 9:55 AM [facility] EAG 197.3 mg/dL 09/21/2017 9:55 AM [facility] Blood BLOOD SPECIMEN / Unknown Venipuncture / Unknown 09/21/2017 4:[address] [facility] 09/21/2017 4:57 AM MST Narrative [facility] - 09/21/2017 9:[address] [facility] The [place] Diabetes [employer] (ADA) guidelines for interpreting Hemoglobin A1C are as follows: Non-Diabetic patient: <5.7% Increased risk for future Diabetes: 5.7-6.4% ADA diagnostic criteria for Diabetes: >6.4% Values for patients with Diabetes: Result <7.0%: Meets ADA's recommendation goal for therapy. Result 7.0-8.0%: Exceeds ADA's recommended goal. Result >8.0%: ADA recommends reevaluation of therapy. us Dre Perez MD LAB BLOOD ORDERABLES Bess chavez Result [facility] [id number] [id number], [facility] [phone] from Last 3 Months or Most Recently Relevant to Health Maintenance Insurance [facility] MEDICARE ADVANTAGE [facility] MEDICARE ADVANTAGE [employer] MEDICARE ADVANTAGE CIGNA MEDICARE ADVANTAGE Advance Directives For more information, please contact: [phone] * Full Code (Latest Code Status on File) Date Activated Date Inactivated Comments 09/20/2017 8:25 PM 09/26/2017 4:14 PM Care Teams Bullard Machine Operator Relationship Specialty Start Date End Date Romero Licea MD [address] [place] [id number] PCP - General Family Medicine 08/03/21 Shana Mike NP [address] [place] [id number] Nurse Practitioner Physical Medicine and Rehabilitation 11/15/22 Julius Canseco MD [address] [place], [place] [id number] Consulting Physician Physical Medicine and Rehabilitation 04/11/23
== END 2025-04-23 16:19 | disposition home or self-care (01) ==
LOC: HO.HPSW 15:24
PROVIDERS: PCP Physician Assistant; Visit Provider Nurse Practitioner Family
DX: J44.9 Chronic obstructive pulmonary disease, unspecified (principal); R06.00 Dyspnea, unspecified; Z91.09 Other allergy status, other than to drugs and biological substances
CPT/HCPCS: 99214

== ENCOUNTER → 2025-04-23 15:23 | Outpatient (BNVA) | payer MEDICARE, SELFPAY | PROVIDERS: PCP Physician Assistant; Visit Provider Nurse Practitioner Family | DX: R05.3 Chronic cough (principal); J44.9 Chronic obstructive pulmonary disease, unspecified; R06.00 Dyspnea, unspecified; Z91.09 Other allergy status, other than to drugs and biological substances; Z87.01 Personal history of pneumonia (recurrent) | CPT/HCPCS: 99212 ==

== ENCOUNTER 2025-04-25 10:28 | Outpatient (REF) | payer MEDICARE, SELFPAY ==
--- NOTE | ~2025-04-25 | XR_ITS ---
EXAMINATION: XR LUMBOSACRAL SPINE CLINICAL INFORMATION: M54.50 - Low back pain, unspecified COMPARISON: None available. TECHNIQUE: AP and cross lateral views FINDINGS: Dextroconvex rotoscoliosis apex at L2-3. Multilevel marginal osteophyte formation and endplate sclerosis decreased intervertebral disc height throughout the axial skeleton pronounced at L2-3 and to a lesser extent L1 to, L3-4 and L4-5 levels. Incomplete ankylosis at L2-3. Osteopenia versus osteoporosis. Vascular calcifications, aorta and iliac arteries. Vascular clips right upper quadrant abdomen.. XR/XR lumbar spine 2-3V IMPRESSION: Multilevel thoracolumbar spondylosis and dextroconvex rotoscoliosis apex at L2-3. Atherosclerosis disease. Electronically signed by: Jerel Garcia MD 04/25/2025 01:00 PM EDT
--- NOTE | ~2025-04-25 | XR_ITS ---
EXAMINATION: XR FEMUR 2 VIEWS LEFT HISTORY: M79.605 - Pain in left leg COMPARISON: There are no prior studies available for comparison. FINDINGS: AP and lateral views of the left femur are submitted. Osseous mineralization is normal. There is no fracture or dislocation. The joint is maintained. There is degenerative change of the patellofemoral compartment of the knee. There are vascular calcifications. XR/XR femur LT 2V IMPRESSION: No evidence of fracture of the left femur. Electronically signed by: Kvng Fonseca MD 04/25/2025 12:56 PM EDT
--- NOTE | ~2025-04-25 | XR_ITS ---
EXAMINATION: XR SACRUM AND COCCYX CLINICAL INFORMATION: M54.50 - Low back pain, unspecified COMPARISON: None available. TECHNIQUE: AP and lateral views FINDINGS: No acute cortical disruption or gross malalignment. Osteopenia versus osteoporosis. Vascular calcifications. No lytic or blastic lesions. XR/XR sacrum coccyx min 2V IMPRESSION: No gross acute fracture. Electronically signed by: Jerel Garcia MD 04/25/2025 01:01 PM EDT
== END 2025-04-25 10:29 | disposition home or self-care (01) ==
LOC: HO.XRAY 10:28
PROVIDERS: PCP Physician Assistant; Visit Provider Physician Assistant
DX: M79.605 Pain in left leg (principal); M54.50 Low back pain, unspecified; M25.552 Pain in left hip; I10 Essential (primary) hypertension; E78.5 Hyperlipidemia, unspecified; I25.10 Atherosclerotic heart disease of native coronary artery without angina pectoris; E11.9 Type 2 diabetes mellitus without complications
CPT/HCPCS: 72100; 72220; 73552; 99212

== ENCOUNTER 2025-04-25 10:28 | Outpatient (AMB) | payer MEDICARE, SELFPAY ==
--- NOTE | 2025-04-25 10:33 | MHC.PC.OV ---
Vital Signs 04/25/25 10:36 04/25/25 10:53 BMI Reason not done Patient refused/unable BP 152/74 H 160/74 H Blood Pressure Location Rt brachial Rt brachial Position Sitting Sitting Respiration 14 Pulse 68 Pulse Source Pulse Oximeter Temp 98.2 F Temp Source Oral Pulse Oximetry (%) 98 Oxygen Delivery Method Room Air Intake Visit Reasons: D/C [facility] Can't put any weight on his left leg Intake Note: Emergency room follow up Equipment Service Lead Required: No Allergies Seasonal Allergies Allergy (Mild, Verified 04/25/25 10:35) sneezing Medication List - Last Reconciled 04/25/25 by Mirian Bermudez PA-C albuterol sulfate 90 mcg/actuation 2 puffs inhalation Q6H PRN albuterol sulfate 2.5 mg inhalation Q4-6H PRN aspirin (Adult Aspirin Regimen) 81 mg PO DAILY atorvastatin 40 mg PO BEDTIME pjmjrtspz-qddglvfg-dzueddf ala (Biktarvy) PO bisacodyl (Dulcolax (bisacodyl)) 10 mg (2 x 5 mg) PO BEDTIME blood-glucose sensor (Sage [employer]yle Charlie 3 Plus Sensor device) Apply 1 new sensor every 15 days as directed to monitor blood glucose continuously. blood-glucose,cutter out,cont (MoverStyle Charlie 3 Gallitzin) Use daily to monitor blood glucose levels continuously. dulaglutide (Trulicity) 3 mg (0.5 mL) subcut QWEEK escitalopram oxalate 10 mg PO DAILY ferrous gluconate 324 mg PO DAILY fluticasone furoate-vilanterol 100-25 mcg/dose (Breo Ellipta) 1 inh inhalation DAILY gabapentin 300 mg PO TID glucose (Dex4 Glucose Quick Dissolve) 16 grams (4 x 4 gram) PO Q15M PRN insulin glargine (Lantus Solostar U-100 Insulin) 20 units (0.2 mL) subcut QPM ipratropium-albuterol 0.5 mg-3 mg(2.5 mg base)/3 mL 3 mL inhalation Q6H PRN lisinopril 40 mg PO DAILY metformin 1,000 mg PO BID omeprazole 20 mg PO DAILY pen needle, diabetic Use BID As directed polyethylene glycol 3350 (Miralax) 238 grams PO ONCE prednisone 10 mg PO DIRECTED trazodone 50 mg PO BEDTIME umeclidinium 62.5 mcg/actuation (Incruse Ellipta) 1 inh inhalation DAILY Tobacco use date assessed: 10/17/24 Dental Screening Dental Screen Date: 10/17/24 HPI D/C [facility] Can't put any weight on his left leg HPI Details Pt is a 69 y/o male who presents today for a follow up. He has a hx of HIV, dyslipidemia, htn, CAD s/p stents, colon polyps, and t2dm. He is here today for an ER follow up. On 04/10 he was seen in the emergency room with complaints of left hip pain. When he is weight-bearing the pain is present but when he is lying down he does not have any pain. No numbness, tingling or weakness. No bowel or bladder dysfunction. He had a negative x-ray of his hip. He tells me today that he is still unable to walk and it has been 3 weeks. Is family members here today with him as he needs assistance with a wheelchair. He has a history of chronic low back pain but has never had sciatica quite like this before. He states that it is mostly on the outside part of his leg and it does radiate down to his calf. It feels like it comes from the low back down. There is no swelling in his leg. This did start after he slipped on the roof of his trailer. He did land on his hip but does not think he broke anything. He states that it was a very soft fall. He has no pain if he leans forward but if he straightens up he has low back pain. If he goes to stand he has a lot of pain. He has to use a walker or a cane so he can lean forward. Recently started on a prednisone taper by pulmonology yesterday for a COPD exacerbation. CV: He is following with Cardiology locally. He is on lisinopril 40 mg and bp today is 152/74. He states it is because he is in pain. He is on atorvastatin 40 mg for cholesterol management. Endo: He states he is a t2dm and was dx around 1989. He is on lantus 20 units nightly, metformin 1000 mg bid, and Trulicity 3 mg weekly. No low blood sugars. His last A1c was 6. -He has tried actos but caused hypoglycemia osteoporosis: hx of this and has bone density scheduled ID: on Biktarvy. He was dx around 2009. Following with [facility] Infectious Disease. Psych: He is on lexapro 10 mg and trazodone. tolerating trazodone well and feels that it is helpful. No SI/HI Heme: On iron and tolerating this well. Booked with GI for a consultation as he has overdue for a colonoscopy. Colonoscopy: has polyps overdue-states that they were calling him to schedule it this year. PSA: CAD [facility] Medical History (Updated 04/25/25 @ 11:07 by Mirian Bermudez PA-C) Weight loss Hyperlipidemia Diabetes High blood pressure Surgical History (Updated 03/19/25 @ 11:28 by LEODAN Pfeiffer) H/O colonoscopy H/O partial thyroidectomy Hx of heart artery stent Family History Father History of quadruple bypass Lung cancer Mother No problems noted. Social History Housing: House Housing Other:: Lives with melina. Normally lived in an , but is currently in the shop Alcohol intake: never Patient Tobacco Use Status: Never used Tobacco e-Cigarette/Vaping Use: Never Used Second Hand Smoke Exposure: Yes service: No Current occupational status: retired Cognitive needs: No Hearing needs: Yes (Hearing aids. Did not put them in today. ) Vision needs: No Questionnaire Thrive Questionnaire Date Thrive assessed: 10/17/24 I am a: Patient What is your living situation today?: I have a steady place to live Within the past 12 months, did the food you bought not last and you didn't have the money to get more?: Sometimes True Within the past 12 months, did you worry whether your food would run out before you got money to buy more?: Sometimes True Do you have trouble paying for medicines?: Yes Do you have trouble getting transportation to medical appointments?: No Do you have trouble paying your heating and electricity bill?: Yes Do you have trouble taking care of your child, family member or friend?: No Do you have trouble with day-to-day activities such as bathing, preparing meals, shopping, managing finances, etc.?: No Are you currently unemployed and looking for a job?: No Are you interested in more education?: No Currently or been in a relationship where the following occur: No concerns reported THRIVE Score: 3 EDIS-7 AMB Questionnaire EDIS-7 Date EDIS - 7 assessed: 10/17/24 Source: Developed by Drs. Kvng Viera, Zonia Schilling, Chandra Torres and colleagues, with an educational joss from [employer]. Physical exam (Primary Care) Vital Signs: Last Vital Signs Temp 98.2 F 04/25/25 10:36 Pulse 68 04/25/25 10:36 Resp 14 04/25/25 10:36 BP 160/74 H 04/25/25 10:53 Pulse Ox 98 04/25/25 10:36 Oxygen Delivery Method Room Air 04/25/25 10:36 Tobacco/Smoking Status: Tobacco use Status Tobacco use date assessed 10/17/24 04/25/25 10:38 Patient Tobacco Use Status Never used Tobacco 04/25/25 10:38 e-Cigarette/Vaping Use Never Used 04/25/25 10:38 Thrive Assessment: Date of Thrive Assessment Date Thrive assessed 10/17/24 04/25/25 10:38 Currently or been in a relationship where the following occur: No concerns reported Const Orientation/consciousness: patient oriented x3 HENMT Ears: hearing grossly normal bilaterally Neck Thyroid: Thyroid normal Lymphatic: no lymphadenopathy noted Resp Auscultation: clear to auscultation bilaterally Cardio Rate: regular rate Rhythm: regular rhythm Heart sounds: S1 normal heart sound present and S2 normal heart sound present General: Yes no CVA tenderness Back/Spine/Pelvis Back: no CVA tenderness Thoracic/Lumbar Spine: thoracic and lumbar spine normal to inspection, No paraspinal muscle tenderness, thoraco-lumbar ROM limited and No lumbar spinal tenderness Skin General skin exam: no rashes or lesions noted Neuro Other: 36 cm left lower leg, 35.5 cm right leg, DTRs intact, DP pulses 2+ bilaterally, strength intact and symmetrical of the bilateral lower extremities., gross sensation intact (no monofilament in the office) General: patient oriented x3 and deep tendon reflexes 2+ bilaterally Coding Level of Care Code Est Pt Level 4 (33963) Complex EM visit Add On G2211 Diagnoses Lumbar pain with radiation down left leg M54.50; M79.605 Left leg pain M79.605 Assessment & Plan Assessment & Plan (1) Lumbar pain with radiation down left leg: Code(s): M54.50 - Low back pain, unspecified; M79.605 - Pain in left leg Category: Medical Plan: X-rays of the back and leg ordered. MRI ordered Continue prednisone taper Increase gabapentin to 600 mg 3 times a day Referral to pain management (2) Left leg pain: Code(s): M79.605 - Pain in left leg Category: Medical Plan: As above. We will follow up pending test results. Orders: Orders XR lumbar spine 2-3V Today M54.50 - Low back pain, unspecified XR femur LT 2V Today M79.605 - Pain in left leg XR sacrum coccyx min 2V Today M54.50 - Low back pain, unspecified, M79.605 - Pain in left leg MR lumbar spine wo con Today M54.50 - Low back pain, unspecified, M79.605 - Pain in left leg Referrals Pain Management Referral M54.50 - Low back pain, unspecified, M79.605 - Pain in left leg Medications: Changed From gabapentin 300 mg PO TID 90 caps 11RF To gabapentin 600 mg (2 x 300 mg) PO TID 180 caps 11RF 30 days
[2025-04-25 10:36] VITALS: BP 152/74; PULSE 68; RESP 14; TEMP 36.8; O2SAT 98
[2025-04-25 10:53] VITALS: BP 160/74
--- OUTSIDE RECORDS SUMMARY | 2025-04-25 12:57 | XMS_ITS | Encounter Summary ---
Author Organization [facility] Address [address] [place] [address] Care Team Providers Care Pull Over Machine Operator Name Role Phone Shanae Zarate MD Unavailable Renee Mora DO Primary Care Provider [phone] Reason for Visit * Reason Comments Med Refill Encounter Details Date Type Department Care Team (Late st Contact Info) Description 07/15/2024 Refill [facility] [address] [facility] [address] [place], [place] [id number] Gay Rosario MD [address] [facility] [address] [place], [place] [id number] Diabetic polyneuropathy associated with type 2 diabetes mellitus ([facility]/HCC) Social History Tobacco Use Types Packs/Day Years [...] No 07/21/2022 Social Connection and Isolation Panel Answer Date Recorded In a typical week, how many times do you talk on the phone with family, friends, or neighbors? Three times a week 07/21/19 How often do you get togethe r with friends or relatives? Never 07/21/2022 How often do you attend chur ch or mormonism services? Patient declined 07/21/2022 Do you belong to any clubs o r organizations such as uatsdin groups, unions, fraternal or athletic groups, or [...] Date Recorded Depression Risk (PHQ2) Score 0 [facility]ational Stress Questionnaire Answer Date [...] RFA TEAM No staff refills--now living in [place]--see Metformin request--see Apr 2024 refill request documented in this encounter Plan of Treatment Not on file documented as of this encounter Visit Diagnoses Diagnosis Diabetic polyneuropathy associated with type 2 diabetes mellitus (CMS/HCC) documented in this encounter Additional Health Concerns Assessment Noted Time PHQ-9 Depression Total Score: 0 07/01/20 1:59 PM MST PHQ-2 Depression Total Score: 0 07/01/20 23 1:59 PM MST documented as of this encounter Care Teams Pull Over Machine Operator Relationship Specialty Start Date End Date Renee Mora DO [address] [place] [address] PCP - General Family Medicine 06/04/24 Shanae Zarate MD [address] [place] [address] Consulting Physician Cardiology 10/13/20 documented as of this encounter
--- OUTSIDE RECORDS SUMMARY | 2025-04-25 12:57 | XMS_ITS | Encounter Summary ---
Author Organization [facility] Address [address] [place] [address] Care Team Providers Care Compliance Intern Name Role Phone Ubaldo Spring MD Primary Care Provider + [phone] Romero Licea MD Primary Care Provi clifton Shana Mike NP Unavailable [phone] Julius Canseco MD Unavailable Encounter Details Date Type Department Care Team (Late st Contact Info) Description 09/23/2017 Procedure Pass [facility] Endoscopy [address] [place] [address] Social History Tobacco Use Types Packs/Day Years Used Date Smoking Tobacco: Former Cigarettes 2 10 2 - 2010 Smokeless Tobacco: Never Alcohol Use Standard Drinks/Week Comments No 0 (1 standard drink = 0.6 oz pur e alcohol) Sex and Gender Information Value Date Recorded Sex Assigned at Not on file Legal Sex Male 10:38 AM [facility] Gender Identity Not on file Sexual Orientation Not on file documented as of this encounter Plan of Treatment Not on file documented as of this encounter Visit Diagnoses Not on filedocumented in this encounter Care Teams Compliance Intern Relationship Specialty Start Date End Date Ubaldo Spring MD PCP - General Family Medicine 09/20/17 08/02/21 Romero Licea MD [address] [place] [address] PCP - General Family Medicine 08/03/21 Shana Mike NP [address] [place] [address] Nurse Practitioner Physical Medicine and Rehabilitation 11/15/22 Julius Canseco MD [address] [place] [address] Consulting Physician Physical Medicine and Rehabilitation 04/11/23 documented as of this encounter
--- OUTSIDE RECORDS SUMMARY | 2025-04-25 12:57 | XMS_ITS | Clinical Summary ---
Author Organization [facility] Address [address] [place] [address] Care Team Providers Care Tool Inspector Name Role Phone Shanae Zarate MD Unavailable Renee Mora DO Primary Care Provider [phone] Allergies Active Allergy Reactions Criticality Noted Date [...] - submitted cover my meds 06/16/22 (Toussaint: [id number]) - approved 06/02/22-06/16/23 Request #[id number] tx Problem Noted Date Diagnosed Date Type 2 diabetes mellitus wit h diabetic peripheral angiopathy without gangrene, with long-term current use of insulin 07/01/2023 Type 2 diabetes mellitus with other specified co mplication 07/01/2023 Overview (07/01/2023): With mixed hyperlipidemia Assessment & Plan (07/01/2023 1:51 PM [facility]): Diabetes is controlled. A1c up because he was off trulicity for a while but been back on it. Stable. Continue present management. Age-related osteoporosis wit hout current pathological fracture 07/26/2022 Overview (07/26/2022): DXA 07/01 right hip -3.6, left hip -3.5 Assessment & Plan (07/26/2022 10:48 AM [facility]): Recent pelvic fracture. Counseling about [...] LOVETT Assessment & Plan (07/26/2022 10:55 AM [facility]): Patient requested refill of his [...] is for him to consult with a credit specialist or even update his spine imaging. I will defer this to his pain management team. Bilateral carpal tunnel syndrome 07/26/2022 Overview (07/26/2022): EMG/NCV 07/01 Assessment & Plan (07/26/2022 10:56 AM [facility]): I will request his records [...] findings. Assessment & Plan (10/13/2020 11:44 AM [facility]): Condition is newly identified. 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 Abdominal aortic atherosclerosis 06/29/2019 Overview (06/29/2019): CT [...] to stent. Advised to follow-up with his meat packager. Benign essential HTN 06/29/2019 Assessment & Plan [...] comorbidities Paroxysmal atrial fibrillation 06/29/2019 Overview (07/01/2023): [id number] Score 3 Assessment & Plan (07/01/2023 1:50 [...] (10/13/2020): Added automatically from request for surgery [id number] Resolved Problems Problem Noted Date Diagnosed Date [...] Never 07/21/2022 How often do you attend [facility] or moravian services? Patient declined 07/21/2022 Do you belong [...] Date Recorded Depression Risk (PHQ2) Score 0 [facility] - Occupational Stress Questionnaire Answer [...] on file Legal Sex Male 1:57 AM [facility] Gender Identity Not [...] Body Mass Index 27.67 07/21/2022 1:37 PM [facility] Plan of Treatment Health Maintenance Due Date [...] X 1, STOOL Routine 10/15/2020 12:00 AM [facility] Screening for colorectal cancer HEPATITIS C VIRUS (HCV) ANTIBODY WITH REFLEX TO QUALITATIVE ISABEL Routine 07/26/2018 from Last 3 Months or Most Recently Relevant to Health Maintenance Results * Colonoscopy (08/03/2021) Pathologist [facility] Colonoscopy colon polyps Historical Provider HEALTH MAINTENANCE Final Result * Occult blood x 1, stool (10/15/2020 12:00 AM [facility]) Pathologist [facility] Occult Bld Immunochem Negative Negative [employer] Comment: Assay sensitivity is >95% when 50 ug Hb/g of stool is present. Clinical sensitivity for colorectal cancer is 87%, and for large adenomas is 47%, based on an evaluation of 240 individuals in a premarket commercial data set used for FDA approval. Overall, clinical specificity is 97.7%. Stool (Per Rectum) 10/15/2020 10/22/2020 7:18 PM [facility] Narrative [facility] - 10/15/2020 12:00 AM [facility] Time/Date of collection taken from specimen. Copy being sent to: Results Only Account [employer] Romero Lovett MD LAB BODY FLUIDS AND STOOLS OR DERABLES Edited Result - Final [facility] [address] [place] [address] * Hepatitis C Virus (HCV) Antibody With [...] sult [facility] Anywhere [address] from Last 3 Months or Most Recently Relevant to Health Maintenance Care Teams Tool Inspector Relationship Specialty Start Date End Date Renee Mora DO [address] [place] [address] PCP - General Family Medicine 06/04/24 Shanae Zarate MD [address] [place] [address] Consulting Physician Cardiology 10/13/20
--- OUTSIDE RECORDS SUMMARY | 2025-04-25 12:57 | XMS_ITS | Encounter Summary ---
Author Organization [facility] Address [address] [place] [address] Care Team Providers Care Clay Preparation Supervisor Name Role Phone Romero Licea MD Primary Care [place] Shana Mike METAL DRAWER Unavailable [phone] Julius Canseco MD Unavailable Encounter Details Date Type Department Care Team (Late st Contact Info) Description 08/03/2021 Procedure Pass [facility] Endoscopy [address] [place] [address] Social History Tobacco Use Types [...] on filedocumented in this encounter Care Teams Clay Preparation Supervisor Relationship Specialty Start Date End Date Romero Licea MD [address] [place], [place] [phone] PCP - General Family Medicine 08/03/21 Shana Mike NP [address] [place] [address] Nurse Practitioner Physical Medicine and Rehabilitation 11/15/22 Julius Canseco MD [address] [place], [place] [id number] Consulting Physician Physical Medicine and Rehabilitation 04/11/23 documented as of this encounter
--- OUTSIDE RECORDS SUMMARY | 2025-04-25 12:57 | XMS_ITS | Encounter Summary ---
Author Organization [facility] Address [address] [place] [address] Care Team Providers Care Salesperson Used Cars Name Role Phone Shanae Zarate MD Unavailable Renee Mora DO Primary Care Provider [phone] Reason for Visit * Reason Comments Med Refill Encounter Details Date Type Department Care Team (Late st Contact Info) Description 06/23/2024 Refill [facility] [address] [place] [address] [place] [address] [place] [address] [address] [place] [address] Diabetic polyneuropathy associated with type 2 diabetes mellitus ([facility]/HCC) Social History Tobacco Use Types [...] How often do you attend chur or mormonism services? Patient declined 07/21/2022 Do you belong to any clubs o r organizations such as episcopal groups, unions, fraternal or athletic groups, or [...] Recorded Depression Risk (PHQ2) Score [facility] - Occupational Stress Questionnaire Answer [...] place to sleep or slept in a fpc (including now)? No 07/21/2022 Sex and Gender [...] documented as of this encounter Care Teams Salesperson Used Cars Relationship Specialty Start Date End Date Renee Mora DO [address] [place], [place] [id number] PCP - General Family Medicine 06/04/24 Shanae Zarate MD [address] [place] [address] [place] [address] Consulting Physician Cardiology 10/13/20 documented as of this encounter
--- OUTSIDE RECORDS SUMMARY | 2025-04-25 12:57 | XMS_ITS | Encounter Summary ---
Author Organization [facility] Address [address] [place] [address] Care Team Providers Care Hospital Insurance Representative Name Role Phone Romero Licea MD Primary Care [place] Shana Mike NP Unavailable [phone] Julius Canseco MD Unavailable Encounter Details Date Type Department Care Team (Late st Contact Info) Description 10/08/2021 Procedure Pass [facility] Surgery [address] [place] [address] Social History Tobacco Use Types Packs/Day Years Used Date Smoking Tobacco: Former Cigarettes 2 10 Smokeless Tobacco: Never Alcohol Use Standard Drinks/Week Comments No 0 (1 standard drink = 0.6 oz pur e alcohol) Sex and Gender Information Value Date Recorded Sex Assigned at Not on file Legal Sex Male 10:38 AM [facility] Gender Identity Not on file [...] filedocumented in this encounter Care Teams Hospital Insurance Representative Relationship Specialty Start Date End Date Romero Licea MD [address] [place], [place] [id number] PCP - General Family Medicine 08/03/21 Shana Mike NP [address] [place] [address] Nurse Practitioner Physical Medicine and Rehabilitation 11/15/22 Julius Canseco MD [address] [place] [address] Consulting Physician Physical Medicine and Rehabilitation 04/11/23 documented as of this encounter
--- OUTSIDE RECORDS SUMMARY | 2025-04-25 12:57 | XMS_ITS | Encounter Summary ---
Author Organization [facility] Address [address] [place] [address] Care Team Providers Care Laboratory Animal Care Veterinarian Name Role Phone Romero Licea MD Primary Care Provi [place] Shana Mike NP Unavailable [phone] Julius Canseco MD Unavailable Encounter Details Date Type Department Care Team (Late st Contact Info) Description 10/22/2021 Procedure Pass [facility] Surgery [address] [place] [address] Social History Tobacco Use Types Packs/Day Years Used Date Smoking Tobacco: Former Cigarettes 2 10 Smokeless Tobacco: Never Alcohol Use Standard Drinks/Week Comments No 0 (1 standard drink = 0.6 oz pur e alcohol) Sex and Gender Information Value Date Recorded Sex Assigned at Not on file Legal Sex Male 10:38 AM [facility] Gender Identity Not on file Sexual Orientation [...] on filedocumented in this encounter Care Teams Laboratory Animal Care Veterinarian Relationship Specialty Start Date End Date Romero Licea MD [address] [place], [place] [phone] PCP - General Family Medicine 08/03/21 Shana Mike NP [address] [place] [address] Nurse Practitioner Physical Medicine and Rehabilitation 11/15/22 Julius Canseco MD [address] [place] [address] Consulting Physician Physical Medicine and Rehabilitation 04/11/23 documented as of this encounter
--- OUTSIDE RECORDS SUMMARY | 2025-04-25 12:57 | XMS_ITS | Encounter Summary ---
Author Organization [facility] Address [address] [place] [address] Care Team Providers Care Calendar Control Clerk Blood Bank Name Role Phone Ubaldo Spring MD Primary Care Provider [phone] Romero Licea MD Primary Care [place] Shana Mike NP Unavailable [phone] Julius Canseco MD Unavailable Encounter Details Date Type Department Care Team (Late st Contact Info) Description 09/24/2017 Procedure Pass [facility] Endoscopy [address] [place] [address] Social History Tobacco Use Types [...] on filedocumented in this encounter Care Teams Calendar Control Clerk Blood Bank Relationship Specialty Start Date End Date Ubaldo Spring MD PCP - General Family Medicine 09/20/17 08/02/21 Romero Licea MD [address] [place] [address] PCP - General Family Medicine 08/03/21 Shana Mike NP [address] [place] [address] Nurse Practitioner Physical Medicine and Rehabilitation 11/15/22 Julius Canseco MD [address] [place] [address] Consulting Physician Physical Medicine and Rehabilitation 04/11/23 documented as of this encounter
--- OUTSIDE RECORDS SUMMARY | 2025-04-25 12:58 | XMS_ITS | Encounter Summary ---
Author Organization [facility] Address [address] [place] [address] Care Team Providers Care Tubular Stock Glass Bulb Machine Former Name Role Phone Romero Licea MD Primary Care Pro[place] Shana Mike NP Unavailable [phone] Julius Canseco MD Unavailable Encounter Details Date Type Department Care Team (Late st Contact Info) Description 01/21/[address] [facility] Surgery [address] [place] [address] Social History Tobacco Use Types [...] on filedocumented in this encounter Care Teams Tubular Stock Glass Bulb Machine Former Relationship Specialty Start Date End Date Romero Licea MD [address] [place], [place] [phone] PCP - General Family Medicine 08/03/21 Shana Mike NP [address] [place] [address] Nurse Practitioner Physical Medicine and Rehabilitation 11/15/22 Julius Canseco MD [address] [place] [address] Consulting Physician Physical Medicine and Rehabilitation 04/11/23 documented as of this encounter
--- OUTSIDE RECORDS SUMMARY | 2025-04-25 12:58 | XMS_ITS | Encounter Summary ---
Author Organization [facility] Address [address] [place] [address] Care Team Providers Care Machine Sewer Name Role Phone Romero Licea MD Primary Care Provider Shanae Zarate MD Unavailable Princess Monroy HUMAN RELATIONS PROFESSOR Unavailable [phone] Luh NashD Unavailable Cathy Tee RN Unavailable Romero Licea MD Unavailable Renee Mora DO Unavailable Renee Mora DO Primary Care Provider Reason for Visit * Reason Comments Med Refill Encounter Details Date Type Department Care Team (Late st Contact Info) Description 05/04/2019 Refill [facility] [address] [place], [place] [address] Nirmal Huizar MD [address] [place] [address] Social History Tobacco Use Types Packs/Day Years Used Date Smoking Tobacco: Never Assessed Sex and Gender Information Value Date Recorded Sex Assigned at Not on file Legal Sex Male 1:57 AM [facility] Gender Identity Not on file Sexual Orientation Not on file documented as of this encounter Plan of Treatment Not on file documented as of this encounter Visit Diagnoses Not on filedocumented in this encounter Care Teams Machine Sewer Relationship Specialty Start Date End Date Romero Licea MD PCP - General Family Medicine 06/27/19 05/27/24 Romero Licea MD [address] [place] [address] PCP - Medicare Advantage - Attributed PCP 10/09/22 07/10/23 Renee Mora DO [address] [place] [address] PCP - Medicare Advantage - Attributed PCP 07/11/23 06/09/24 Renee Mora DO [address] [place] [address] PCP - General Family Medicine 06/04/24 Shanae Zarate MD [address] [place] [address] Consulting Physician Cardiology 10/13/20 Princess Monroy LCSW [address] [place] [address] Email Campaign Specialist Delivery Crew Member 10/31/20 05/27/24 Luh Nash, HunterD [address] [place] [place] [address] Clinical Pharmacist Pharmacy 11/24/20 03/04/22 Cathy Tee, KAMERON [address] [place] [address] [facility] [place] [address] Pipe Crew Foreman ( Nurse) Care Management 08/17/21 documented as of this encounter
--- OUTSIDE RECORDS SUMMARY | 2025-04-25 12:58 | XMS_ITS | Encounter Summary ---
Author Organization [facility] Address [address] [place] [address] Care Team Providers Care Manager Resource Name Role Phone Romero Licea MD Primary Care Provi [place] Shana Mike INTEGRATED PROGRAM TEACHER Unavailable [phone] Julius Canseco MD Unavailable [phone] Encounter Details Date Type Department Care Team (Late st Contact Info) Description 04/11/2023 Procedure Pass [facility] Surgery [address] [place] [address] Social History Tobacco Use Types Packs/Day Years Used Date Smoking Tobacco: Former Cigarettes 2 10 Smokeless Tobacco: Never Alcohol Use Standard Drinks/Week Comments No 0 (1 standard drink = 0.6 oz pur e alcohol) Sex and Gender Information Value Date Recorded Sex Assigned at Not on file Legal Sex Male 10:38 AM [facility] Gender Identity Not on file Sexual Orientation Not on file documented as of this encounter Plan of Treatment Not on file documented as of this encounter Visit Diagnoses Not on filedocumented in this encounter Care Teams Manager Resource Relationship Specialty Start Date End Date Romero Licea MD [address] [place], [place] [phone] PCP - General Family Medicine 08/03/21 Shana Mike, JAYNA [address] [place], [place] [phone] Nurse Practitioner Physical Medicine and Rehabilitation 5/8/23 Julius Canseco MD [address] [place] [address] Consulting Physician Physical Medicine and Rehabilitation 04/11/23 documented as of this encounter
--- OUTSIDE RECORDS SUMMARY | 2025-04-25 12:58 | XMS_ITS | Encounter Summary ---
Author Organization [facility] Address [address] [place] [address] Care Team Providers Care Marketing Services Rep Name Role Phone Romero Licea MD Primary Care Provider Shanae Zarate MD Unavailable Princess Monroy SIGN CARPENTER Unavailable [phone] Luh NashD Unavailable Cathy Tee RN Unavailable Romero Licea MD Unavailable Renee Mora DO Unavailable Renee Mora DO Primary Care Provider Reason for Visit * Reason Comments Med Refill Encounter Details Date Type Department Care Team (Late st Contact Info) Description 06/27/2019 Refill [facility] [address] [place], [place] [address] Nirmal Huizar MD [address] [place] [address] Social History Tobacco Use Types Packs/Day Years Used Date Smoking Tobacco: Never Assessed Sex and Gender Information Value Date Recorded Sex Assigned at Not on file Legal Sex Male 1:57 AM [facility] Gender Identity Not on file Sexual Orientation Not on file documented as of this encounter Plan of Treatment Not on file documented as of this encounter Visit Diagnoses Not on filedocumented in this encounter Care Teams Marketing Services Rep Relationship Specialty Start Date End Date Romero Licea MD PCP - General Family Medicine 06/27/19 05/27/24 Romero Licea MD [address] [place] [address] PCP - Medicare Advantage - Attributed PCP 10/09/22 07/10/23 Renee Mora DO [address] [place] [address] PCP - Medicare Advantage - Attributed PCP 07/11/23 06/09/24 Renee Mora DO [address] [place] [address] PCP - General Family Medicine 06/04/24 Shanae Zarate MD [address] [place] [address] Consulting Physician Cardiology 10/13/20 Princess Monroy LCSW [address] [place] [address] Bath Design Sales Consultant Ingot Car Operator 10/31/20 05/27/24 Luh Nash, HunterD [address] [place] [address] Clinical Pharmacist Pharmacy 11/24/20 03/04/22 Cathy Tee, KAMERON [address] [place] [address] [place] [address] Credit Collection Associate ( Nurse) Care Management 08/17/21 documented as of this encounter
--- OUTSIDE RECORDS SUMMARY | 2025-04-25 12:58 | XMS_ITS | Encounter Summary ---
Author Organization [facility] Address [address] [place] [address] Care Team Providers Care Tourist Camp Attendant Name Role Phone Romero Licea MD Primary Care Provi cl[place] Shana Mike INVENTORY CONTROL ASSISTANT Unavailable [phone] Julius Canseco MD Unavailable [phone] Encounter Details Date Type Department Care Team (Late st Contact Info) Description 04/25/2023 Procedure Pass [facility] Surgery [address] [place] [address] Social History Tobacco Use Types Packs/Day Years Used Date Smoking Tobacco: Former Cigarettes 2 10 Smokeless Tobacco: Never Alcohol Use Standard Drinks/Week Comments No 0 (1 standard drink = 0.6 oz pur e alcohol) Sex and Gender Information Value Date Recorded Sex Assigned at Not on file Legal Sex Male 10:38 AM [facility] Gender Identity Not on file Sexual Orientation Not on file documented as of this encounter Plan of Treatment Not on file documented as of this encounter Visit Diagnoses Not on filedocumented in this encounter Care Teams Tourist Camp Attendant Relationship Specialty Start Date End Date Romero Licea MD [address] [place], [place] [phone] PCP - General Family Medicine 08/03/21 Shana Mike, JAYNA [address] [place], [place] [id number] Nurse Practitioner Physical Medicine and Rehabilitation 5/8/23 Julius Canseco MD [address] [place] [address] Consulting Physician Physical Medicine and Rehabilitation 04/11/23 documented as of this encounter
--- OUTSIDE RECORDS SUMMARY | 2025-04-25 12:58 | XMS_ITS | Encounter Summary ---
Author Organization [facility] Address [address] [place] [address] Care Team Providers Care Food Manager Name Role Phone Romero Licea MD Primary Care Provi clifton Shana Mike NP Unavailable [phone] Julius Canseco MD Unavailable [phone] Encounter Details Date Type Department Care Team (Late st Contact Info) Description 02/04/2022 Procedure Pass [facility] Surgery [address] [place] [address] Social History Tobacco Use Types Packs/Day Years Used Date Smoking Tobacco: Former Cigarettes 2 10 Smokeless Tobacco: Never Alcohol Use Standard Drinks/Week Comments No 0 (1 standard drink = 0.6 oz pur e alcohol) Sex and Gender Information Value Date Recorded Sex Assigned at Not on file Legal Sex Male 10:38 AM [facility] Gender [...] on filedocumented in this encounter Care Teams Food Manager Relationship Specialty Start Date End Date Romero Licea MD [address] [place], [place] [phone] PCP - General Family Medicine 08/03/21 Shana Mike NP [address] [place] [address] Nurse Practitioner Physical Medicine and Rehabilitation 11/15/22 Julius Canseco MD [address] [place] [address] Consulting Physician Physical Medicine and Rehabilitation 04/11/23 documented as of this encounter
--- OUTSIDE RECORDS SUMMARY | 2025-04-25 12:58 | XMS_ITS | Clinical Summary ---
Author Organization [facility] Address [address] [place] [address] Care Team Providers Care Recycle Worker Name Role Phone Romero Licea MD Primary Care Provi clifton Shana Mike NP Unavailable [phone] Julius Canseco MD Unavailable Allergies No known [...] (10/06/2021): Added automatically from request for surgery [id number] Lumbar radiculopathy 10/05/2021 Overview (10/05/2021): Added automatically from request for surgery [id number] Fever 09/23/2017 Asthma 09/21/2017 HIV (human immunodeficiency virus infection) COPD (chronic obstructive pulmonary disease) Hypertension 09/21/2017 Polycythemia 09/21/2017 Hyponatremia 09/21/2017 Dehydration 09/20/[address] scan, stomach 09/20/2017 Overview (09/23/2017): Added automatically from request for surgery [id number] Social History Tobacco Use Types Packs/Day Years Used Date Smoking Tobacco: Former Cigarettes 2 10 Smokeless Tobacco: Never Tobacco Cessation:Counseling Given: Not Answered Alcohol Use Standard Drinks/Week Comments No 0 (1 standard drink = 0.6 oz pur e alcohol) Sex and Gender Information Value Date Recorded Sex Assigned at Not on file Legal Sex Male 10:38 AM [facility] Gender Identity Not on file Sexual Orientation Not on file Last Filed Vital Signs Vital Sign Reading Time Taken Comments Blood Pressure 128/72 04/11/2023 5:00 PM [facility] Pulse 66 04/11/2023 5:00 PM [facility] Temperature 36.6 C (97.8 F) 04/11/2023 2:43 PM [facility] Respiratory Rate 16 04/11/2023 5:00 PM [facility] Oxygen Saturation 99% 04/11/2023 5:00 PM [facility] Inhaled Oxygen Concentration - - [...] abdomen pelvis with contrast (09/21/2017 8:44 PM [facility]) Anatomical Region Laterality Modality Abdomen, Chest, Pelvis, Hip Comp uted Tomography 09/21/2017 8:42 PM [facility] Narrative 09/21/2017 8:55 PM [facility] CT THORAX, ABDOMEN AND [...] * (ABNORMAL) Hemoglobin A1c (09/21/2017 4:47 AM [facility]) Hemoglobin A1C 8.5(H) <=5.7 % 09/21/2017 9:[address] [facility] EAG 197.3 mg/dL 09/21/2017 9:[address] [facility] Blood BLOOD SPECIMEN / Unknown Venipuncture / Unknown 09/21/2017 4:47 AM [facility] 09/21/2017 4:[address] [facility] - 09/21/2017 9:55 AM [facility] The [place] Diabetes Association (ADA) guidelines for interpreting Hemoglobin A1C are as follows: Non-Diabetic patient: <5.7% Increased risk for future Diabetes: 5.7-6.4% ADA diagnostic criteria for Diabetes: >6.4% Values for patients with Diabetes: Result <7.0%: Meets ADA's recommendation goal for therapy. Result 7.0-8.0%: Exceeds ADA's recommended goal. Result >8.0%: ADA recommends reevaluation of therapy. us Dre Perez MD LAB BLOOD ORDERABLES Bess chavez Result [facility] [address] [id number], [facility] [phone] from Last 3 Months or Most Recently Relevant to Health Maintenance Insurance [facility] MEDICARE ADVANTAGE [facility] MEDICARE ADVANTAGE [employer] MEDICARE ADVANTAGE CIGNA MEDICARE ADVANTAGE Advance Directives For more information, please contact: [phone] * Full Code (Latest Code Status on File) Date Activated Date Inactivated Comments 09/20/2017 8:25 PM 09/26/2017 4:14 PM Care Teams Recycle Worker Relationship Specialty Start Date End Date Romero Licea MD [address] [place] [phone] PCP - General Family Medicine 08/03/21 Shana Mike NP [address] [place] [id number] Nurse Practitioner Physical Medicine and Rehabilitation 11/15/22 Julius Canseco MD [address] [place], [place] [phone] Consulting Physician Physical Medicine and Rehabilitation 04/11/23
--- OUTSIDE RECORDS SUMMARY | 2025-04-25 12:58 | XMS_ITS | Encounter Summary ---
Author Organization [facility] Address [address] [place] [address] Care Team Providers Care Building Illuminating Engineer Name Role Phone Romero Licea MD Primary Care Provider Shanae Zarate MD Unavailable Princess Monroy BRIDGES AND BUILDINGS SUPERVISOR Unavailable [phone] Luh NashD Unavailable Cathy Tee RN Unavailable Romero Licea MD Unavailable Renee Mora DO Unavailable Renee Mora DO Primary Care Provider Reason for Visit * Reason Comments Med Refill Encounter Details Date Type Department Care Team (Late st Contact Info) Description 05/25/2019 Refill [facility] [address] [place], [place] [address] Nirmal Huizar MD [address] [place] [address] Social History Tobacco Use Types Packs/Day Years [...] on filedocumented in this encounter Care Teams Building Illuminating Engineer Relationship Specialty Start Date End Date Romero Licea MD PCP - General Family Medicine 06/27/19 05/27/24 Romero Licea MD [address] [place] [address] PCP - Medicare Advantage - Attributed PCP 10/09/22 07/10/23 Renee Mora DO [address] [place] [address] PCP - Medicare Advantage - Attributed PCP 07/11/23 06/09/24 Renee Mora DO [address] [place] [address] PCP - General Family Medicine 06/04/24 Shanae Zarate MD [address] [place] [address] Consulting Physician Cardiology 10/13/20 Princess Monroy LCSW [address] [place] [address] Chief Of Staff Doctor Paster Operator 10/31/20 05/27/24 Luh Nash, HunterD [address] [place] [address] Clinical Pharmacist Pharmacy 11/24/20 03/04/22 Cathy Tee, KAMERON [address] [place] [address] [place] [address] Abrasive Mixer Helper ( Nurse) Care Management 08/17/21 documented as of this encounter
== END 2025-04-25 11:16 | disposition home or self-care (01) ==
LOC: HO.HMCFM 10:29
PROVIDERS: PCP Physician Assistant; Visit Provider Physician Assistant
DX: M54.50 Low back pain, unspecified (principal); M79.605 Pain in left leg

== ENCOUNTER → 2025-04-25 12:15 | Outpatient (BNV) | payer MEDICARE, SELFPAY | PROVIDERS: PCP Physician Assistant; Visit Provider Radiology Diagnostic Radiology | DX: M47.896 Other spondylosis, lumbar region (principal); M79.605 Pain in left leg; M54.42 Lumbago with sciatica, left side | CPT/HCPCS: 72100; 72220; 73552 ==

== ENCOUNTER 2025-05-03 12:27 | Emergency (ER) | payer MEDICARE, SELFPAY ==
--- NOTE | ~2025-05-03 | CT_ITS ---
EXAMINATION: CT HIP WITHOUT CONTRAST, LEFT CLINICAL INFORMATION: Severe left hip pain after fall. COMPARISON: None available. TECHNIQUE: Multidetector volumetric imaging was obtained through the left hip without contrast material. Multiplanar reformatted images were submitted in coronal and sagittal planes. This CT examination was performed using dose optimization techniques as appropriate, variously including the following: *Automated exposure control *Adjustment of mA and/or kV according to patient size (this includes techniques or standardized protocols for targeted exams where dose is matched to indication/reason for exam; i.e. extremities or head) *Use of iterative reconstruction technique FINDINGS: Bony structures appear intact. There is no definite fracture, dislocation, or suspicious bone lesion. There are mild degenerative changes in the left hip joint. The femoral head is normal in contour without evidence of AVN. The greater and lesser trochanters appear normal. The imaged pelvis is intact. The imaged sacrum is intact. Mild degenerative changes in the left SI joint. The pelvic girdle musculature is normal in appearance without hematoma or abnormal fluid collection. There is no significant left hip joint effusion. The imaged vasculature demonstrates severe atheromatous calcification. The partially imaged pelvic organs demonstrate a normal-appearing urinary bladder. There is diverticulosis of the sigmoid colon. There is mild prostate hypertrophy. No abnormal fluid collection, or adenopathy. CT/CT hip LT wo IV con IMPRESSION: 1. No definite fracture, dislocation, or bone lesion. The left hip is intact. 2. 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 No significant joint effusion. 3. Sigmoid diverticulosis. 4. Severe atheromatous calcification of the arterial vasculature. Electronically signed by: Carlito Meza MD 05/03/2025 02:50 PM EDT
--- NOTE | ~2025-05-03 | CT_ITS ---
EXAMINATION: CT LUMBAR SPINE WITHOUT CONTRAST CLINICAL INFORMATION: Severe low back pain after fall. COMPARISON: None available. TECHNIQUE: Axial 2 mm thin and reformatted 2 mm thin sagittal and coronal images of lumbar spine were obtained. This CT examination was performed using dose optimization techniques as appropriate, variously including the following: *Automated exposure control *Adjustment of mA and/or kV according to patient size (this includes techniques or standardized protocols for targeted exams where dose is matched to indication/reason for exam; i.e. extremities or head) *Use of iterative reconstruction technique DLP: 879 mGy/cm. FINDINGS: There is maintained lumbar lordosis. There is grade 1 retrolisthesis L2-L3 and L3 over L4. There is loss of disc height at L1-2, L2-3 and L3-4 disc levels. The L4-5 and L5-S1 disc heights are maintained normal. There is mild dextroscoliosis lumbar spine. Lateral L5 pars defects are seen. At T11-12 and T12-L1 disc levels there is minimal bulge without spinal canal stenosis. The neural foramina are patent bilaterally. At L1-2 disc level there is no significant disc bulge, herniation or spinal canal stenosis. Is moderate left and mild to moderate right neural from narrowing. At L2-3 disc level there is mild diffuse bulge without spinal canal stenosis. Neural foramina are mildly narrowed bilaterally. At L3-4 disc level there is moderate spinal canal stenosis from combination of diffuse bulge/spondylosis complex. There is diffuse slightly hyperdense appearing ligamentum flavum is noted. The neural foramina are moderately narrowed bilaterally. At L4-5 disc level there is a disc osteophyte complex with mild spinal canal stenosis. There is bilateral moderate narrowing of neural foramina. At L5-S1 disc level there is no disc bulge, herniation or spinal canal stenosis. The neural foramina patent bilaterally. No aggressive lytic or sclerotic process seen. Lateral subluxation seen in the mid segment lumbar spine. Conus medullaris terminates at L2 vertebra. CT/CT lumbar spine wo IV con IMPRESSION: Scoliosis with multilevel degenerative disc changes and spondylosis. There is moderate canal stenosis at L3-4 disc level and mild canal stenosis at the L4-5 disc level. Bilateral L5 pars defects noted without listhesis. Electronically signed by: Eros Bruce MD 05/03/2025 03:06 PM EDT RP
[2025-05-03 13:03] VITALS: BP 159/71; PULSE 65; RESP 20; TEMP 36.6; O2SAT 99; BMI 27.5
--- NOTE | 2025-05-03 13:15 | PC.NURSE ---
pt is alert and oriented, skin appropriate for ethnicity, respirations even and unlabored, pt is reporting for the last month having left lower back pain that radiates to his left leg, denies injury/fall, is reporting that he is having a really hard time ambulating do to the pain, hx of herniated back discs, pain comes and goes, at this time its a 2/10. no tingling or numbness no incontinence
--- NOTE | 2025-05-03 13:36 | ED_ITS ---
HPI - Back Pain/Injury General Chief Complaint: Back Pain/Injury Stated Complaint: Lower Back Pain Time Seen by Provider: 05/03/25 13:03 Source: patient, family and old records reviewed Mode of arrival: wheelchair Limitations: no limitations History of Present Illness ED Provider: CAROLINA LEGER Narrative: 69 yo male with HIV managed by [facility] ID, COPD, anemia, osteoporosis, pneumonia, HTN, CAD, T2DM, not on blood thinners here with c/o 1 month of L hip and low back pain that hurts when he tries to walk or stand up straight. He denies trauma. He has no b/b incontinence, saddle anesthesia or fevers. He notes he has tried prednisone, OTC meds, gabapentin and it is not better. He saw his PCP who ordered an outpatient MRI. He has no rash, no IVDA, no urinary symptoms. Due to uncontrolled pain PCP sent him to the ED. He notes hx of disc herniation. MD elicited complaint: back pain Pertinent past history: prior back pain Onset (ago): month(s) (1) Timing: progressively worsening Severity: severe Similar Symptoms Previously: Yes Quality: sharp Location: left lower back (L hip) Radiation: left leg below the knee Exacerbating factors: sitting upright and walking Relieving factors: immobilization Context: unknown Associated symptoms: denies other symptoms Treatments prior to arrival: other medications, prescription analgesics and other medications Work related injury: No Related Data Home Medications ?Medication ?Instructions ?Recorded ?Confirmed hmitvcuiz-nkmlkavx-htudnxk ala PO 10/17/24 04/25/25 [Biktarvy] albuterol sulfate 2.5 mg/3 mL 2.5 mg inhalation Q4-6H PRN 01/08/25 04/25/25 (0.083 %) solution for nebulization aspirin 81 mg tablet,delayed 81 mg PO DAILY 02/06/25 1 release (Adult Aspirin Regimen) Previous Rx's ?Medication ?Instructions ?Recorded albuterol sulfate 90 mcg/actuation 2 puff inhalation Q 6H PRN 10/17/24 aerosol inhaler shortness of breath or wheez ing #8.5 grams pen needle, diabetic 32 gauge x #100 ea 10/17/24 dulaglutide 3 mg/0.5 mL 3 mg (0.5 mL) subcut QWEEK # 2 mL 11/21/24 subcutaneous pen injector (TrulicBookNow) blood-glucose sensor (FreeStyle #2 ea 12/18/24 Charlie 3 Plus Sensor device) blood-glucose,corporate director,cont #1 ea 12/18/24 (FreeStyle Charlie 3 Randolph) glucose 4 gram chewable tablet 16 g (4 x 4 gram) PO Q1 5M PRN 12/18/24 (Dex4 Glucose Quick Dissolve) hypoglycemia #10 tabs ferrous gluconate 324 mg (37.5 mg 324 mg PO DAILY #90 tabs 12/27/24 iron) tablet lisinopril 40 mg tablet 40 mg PO DAILY #90 tabs 12/09 04/04 atorvastatin 40 mg tablet 40 mg PO BEDTIME #90 tabs escitalopram oxalate 10 mg tablet 10 mg PO DAILY #90 t abs 12/31/24 trazodone 50 mg tablet 50 mg PO BEDTIME #90 tabs fluticasone furoate 100 1 inh inhalation DAILY #60 e a 01/08/25 mcg-vilanterol 25 mcg/dose inhalation powder (Breo Ellipta) ipratropium 0.5 mg-albuterol 3 mg 3 ml inhalation Q6H PRN wheezing 02/19/25 (2.5 mg base)/3 mL nebulization #180 mL soln bisacodyl 5 mg tablet,delayed 10 mg (2 x 5 mg) PO BEDT NAHUN #16 03/19/25 release (Dulcolax (bisacodyl)) tabs omeprazole 20 mg capsule,delayed 20 mg PO DAILY #30 ca ps 03/19/25 release polyethylene glycol 3350 17 238 g PO ONCE #238 grams 0 03/19/25 gram/dose oral powder (Miralax) metformin 1,000 mg tablet 1,000 mg PO BID #180 tabs umeclidinium 62.5 mcg/actuation 1 inh inhalation DAILY #30 ea 03/27/25 blister powder for inhalation (Incruse Ellipta) insulin glargine 100 unit/mL (3 20 unit (0.2 mL) subcu t QPM #15 mL 04/08/25 mL) subcutaneous pen (Lantus Solostar U-100 Insulin) prednisone 10 mg tablet 10 mg PO DIRECTED #30 tab s 04/23/25 gabapentin 300 mg capsule 600 mg (2 x 300 mg) PO TID 3 0 days 04/25/25 #180 caps diazepam 5 mg tablet (Valium) 5 mg PO TID PRN muscle s pasm #12 05/03/25 tabs Allergies Allergy/AdvReac Type Severity Reaction Status Date / Time Seasonal Allergies Allergy Mild sneezing Verified 05/03/25 13:06 Review of Systems 2 Review of Systems: Constitutional : No Weight loss, No Fever, No Chills, ENT/Mouth : No Hearing loss, No Ear Pain, No Nasal Congestion, No Sinus Pain, No Hoarseness, No sore throat, No Rhinorrhea, No Swallowing Difficulty Cardiovascular : No Chest Pain, No SOB Respiratory : No Cough, No Dyspnea Gastrointestinal : No Nausea, No Vomiting, No Diarrhea, No abdominal Pain, No Hematochezia, No Melena Genitourinary : No Dysuria, No Urinary Frequency, No Hematuria, No Urinary Incontinence, Musculoskeletal : positive back pain Skin : No Skin Lesions, No rash Neuro : No Weakness, No Numbness, No Paresthesias, no loss of bowel or bladder incontinence, no saddle anesthesia Yes all other systems are reviewed and are negative [facility] Past Medical History Attestation statement: The following information was validated with the patient. Source: old records reviewed Medical History Weight loss Hyperlipidemia Diabetes High blood pressure Surgical History H/O colonoscopy H/O partial thyroidectomy Hx of heart artery stent Family History Family History Father History of quadruple bypass Lung cancer Mother No problems noted. Social History Social History Housing: House Housing Other:: Lives with [facility]. Normally lived in an , but is currently in the shop Alcohol intake: never Patient Tobacco Use Status: Never used Tobacco e-Cigarette/Vaping Use: Never Used Second Hand Smoke Exposure: Yes Substance Use Type: Marijuana service: No Current occupational status: retired Cognitive needs: No Hearing needs: Yes (Hearing aids. Did not put them in today. ) Vision needs: No Physical Exam 2 Vital Signs: Vital Signs: Last Vital Signs Temp 97.8 F 05/03/25 15:09 Pulse 63 05/03/25 15:09 Resp 18 05/03/25 15:09 BP 158/74 H 05/03/25 15:09 Pulse Ox 97 05/03/25 15:09 O2 Del Method Room Air 05/03/25 15:09 BMI result Body Mass Index 27.5 Appearance: Alert. Oriented X3. No acute distress. Eyes: Pupils equal, round and reactive to light. ENT: Pharynx normal. hearing aids in place Neck: Normal inspection. Neck supple. CVS: Normal heart rate and rhythm. Pulses normal. Respiratory: No respiratory distress. Breath sounds normal. Abdomen: Soft and nontender. Skin: Skin warm and dry. Normal skin color. Normal skin turgor. Extremities: No lower extremity edema. No calf ttp Neuro: Oriented X 3. No motor deficit. No sensory deficit. CN2-12 intact SILT inner thigh, L5 5/5 bilaterally, 2+ DTR in patella and achilles, no pain with leg lifting when I do it. Has pain with axial loading and rotation of L hip, distal pulses intact. Medications Administered Discontinued Medications Generic Name Dose Route Start Last Admin Trade Name Freq PRN Reason Stop Dose Admin Diazepam 5 mg 05/03/25 15:14 05/03/25 15:29 Diazepam 5 Mg Tablet PO 05/03/25 15:15 5 mg ONCE ONE Administration Hydromorphone HCl 1 mg 05/03/25 13:06 05/03/25 13:48 Hydromorphone Hcl 1 Mg/Ml Syringe IVPUSH 05/03/25 13:07 1 mg ONCE ONE Administration Protocol Medical Decision Making Medical Decision Making MDM Narrative: 69 yo male with HIV managed by [facility] ID, COPD, anemia, osteoporosis, pneumonia, HTN, CAD, T2DM, not on blood thinners here with c/o low back pain and L hip pain, no cauda equina symptoms, no neuro deficits, he will need IV pain control, start with CT scans given degree of hip pain with rotation. No signs of infection Differential Diagnosis Differential Diagnoses: The differential diagnosis associated with the presentation includes effusion, trauma, radiculopathy, fracture Admission/Observation Consideration of admission/observation: Escalation of care including admission/observation considered no cauda equina symptoms, no effusion, no signs of infection obtained outpatient MRI 10/30 he is comfortable with this he feels markedly better able to sit upright and stand will start on valium BID Lab Data MDM Lab Attestation statement: I reviewed the patient's lab results. 05/03/25 13:44 05/03/25 13:44 Labs: Lab Results 05/03/25 Range/Units 13:44 WBC 6.1 (4.8-10.8) X10*3/uL RBC 4.12 L (4.60-5.80) X10*6/uL Hgb 12.5 L (14.0-18.0) g/dl Hct 36.8 L (42.0-52.0) % MCV 89.3 (80.0-98.0) fL MCH 30.3 (27.0-33.0) pg MCHC 34.0 (31.0-36.0) g/dl RDW 13.1 (11.0-16.0) % Plt Count 215 (160-400) X10*3/uL MPV 9.3 L (9.4-12.4) fL Immature Gran % (Auto) 0.3 (0.0-0.4) % Neut % (Auto) 65.0 (45-73) % Lymph % (Auto) 25.4 (20-40) % [place] % (Auto) 7.5 (2-11) % Eos % (Auto) 1.3 (0-4) % Baso % (Auto) 0.5 (0-2) % Lymph # (Auto) 1.6 (1.2-4.9) X10*3/uL [place] # (Auto) 0.5 (0.1-1.2) X10*3/uL Eos # (Auto) 0.1 (0.0-0.4) X10*3/uL Baso # (Auto) 0.0 (0.0-0.2) X10*3/uL Abs Immat Gran (auto) 0.02 (0.00-0.03) X10*3/uL Absolute Neuts (auto) 4.0 (2.0-8.3) x10*3/uL Absolute Nucleated RBC 0.000 (0.0-0.012) X10*3/uL Nucleated RBC % (auto) 0.0 (0.0-0.2) /100WBC ESR 14 (0-15) MM/HR Sodium 137 (135-145) mmol/L Potassium 3.5 (3.3-5.1) mmol/L Chloride 104 (96-108) mmol/L Carbon Dioxide 25 (22-29) mmol/L Anion Gap 12 (12-20) BUN 14 (9-16) mg/dL Creatinine 0.98 (0.5-1.4) mg/dL Estim Creat Clear Calc 73.1 Estimated GFR > 60 Random Glucose 163 H (60-115) mg/dL Calcium 8.9 (8.4-10.2) mg/dL Magnesium 1.9 (1.6-2.6) mg/dL Total Bilirubin 0.5 (0.0-1.0) mg/dL Direct Bilirubin 0.2 (0.0-0.5) mg/dL AST 21 (5-37) U/L ALT 26 (0-40) U/L Alkaline Phosphatase 138 H (39-117) U/L C-Reactive Protein 0.28 (< or = 0.50) mg/dL Total Protein 6.9 (6.5-8.0) g/dL Albumin 4.0 (3.5-5.0) g/dL Independent Interpretation I performed an independent interpretation of an: CT Scan (no fracture, no effusion) Radiology Impression Discussion of test interpretation with radiology: I have reviewed the radiologist's reading. Independent Historian Clinical information obtained from an independent historian. History obtained from or confirmed by: Other External Record Review External record reviewed: Outpatient record Prescription Management I considered prescription management with: Other Discharge Plan Discharge Clinical Impression: Lumbar pain with radiation down left leg Patient Disposition: Home, Self-Care Instructions: Acute Low Back Pain (ED), Leg Pain (ED) Additional Instructions: labs reassuring return for loss of control of bowel or bladder, numbness in your genital area, fever over 100.4, or any other concerns make sure you follow up with your MRI appointment I would also call and schedule an outpatient appointment with our spine center even before results of MRI Prescriptions: New diazepam [Valium] 5 mg tablet 5 mg PO TID PRN (Reason: muscle spasm) Qty: 12 0RF Rx Instructions: partial fill is okay No Action lisinopril 40 mg tablet 40 mg PO DAILY Qty: 90 0RF ferrous gluconate 324 mg (37.5 mg iron) tablet 324 mg PO DAILY Qty: 90 0RF escitalopram oxalate 10 mg tablet 10 mg PO DAILY Qty: 90 0RF atorvastatin 40 mg tablet 40 mg PO BEDTIME Qty: 90 0RF trazodone 50 mg tablet 50 mg PO BEDTIME Qty: 90 0RF metformin 1,000 mg tablet 1,000 mg PO BID Qty: 180 0RF Incruse Ellipta 62.5 mcg/actuation blister with device 1 inh inhalation DAILY Qty: 30 3RF insulin glargine [Lantus Solostar U-100 Insulin] 100 unit/mL (3 mL) insulin pen 20 unit subcut QPM Qty: 15 5RF wzhxwqash-ymblrpum-ulrtrkr ala [Biktarvy] PO (DME) pen needle, diabetic 32 gauge x 5/32 needle See Rx Instructions .ROUTE .MEDSUPPLY Qty: 100 3RF Rx Instructions: Use BID As directed albuterol sulfate 90 mcg/actuation HFA aerosol inhaler 2 puff inhalation Q6H PRN (Reason: shortness of breath or wheezing) Qty: 8.5 3RF Trulicity 3 mg/0.5 mL pen injector 3 mg subcut QWEEK Qty: 2 5RF glucose [Dex4 Glucose Quick Dissolve] 4 gram tablet,chewable 16 g PO Q15M PRN (Reason: hypoglycemia) Qty: 10 3RF Rx Instructions: until symptoms of low blood sugar are controlled (DME) FreeStyle Charlie 3 Randolph Misc See Rx Instructions .ROUTE .MEDSUPPLY Qty: 1 0RF Rx Instructions: Use daily to monitor blood glucose levels continuously. (DME) FreeStyle Charlie 3 Plus Sensor Device See Rx Instructions .ROUTE .MEDSUPPLY Qty: 2 11RF Rx Instructions: Apply 1 new sensor every 15 days as directed to monitor blood glucose continuously. omeprazole 20 mg capsule,delayed release(DR/EC) 20 mg PO DAILY Qty: 30 3RF bisacodyl [Dulcolax (bisacodyl)] 5 mg tablet,delayed release (DR/EC) 10 mg PO BEDTIME Qty: 16 0RF Rx Instructions: Start taking 2 tablet every night 7 days before the procedure and 1 day before procedure take 4 tablets at noon time followed by MiraLax prep polyethylene glycol 3350 [Miralax] 17 gram/dose powder 238 g PO ONCE Qty: 238 0RF Rx Instructions: As directed by gastroenterology department at [facility] ipratropium-albuterol 0.5 mg-3 mg(2.5 mg base)/3 mL solution for nebulization 3 ml inhalation Q6H PRN (Reason: wheezing) Qty: 180 0RF gabapentin 300 mg capsule 600 mg PO TID 30 Days Qty: 180 11RF aspirin [Adult Aspirin Regimen] 81 mg tablet,delayed release (DR/EC) 81 mg PO DAILY albuterol sulfate 2.5 mg /3 mL (0.083 %) solution for nebulization 2.5 mg inhalation Q4-6H PRN fluticasone furoate-vilanterol [Breo Ellipta] 100-25 mcg/dose blister with device 1 inh inhalation DAILY Qty: 60 6RF prednisone 10 mg tablet 10 mg PO DIRECTED Qty: 30 0RF Rx Instructions: see taper instructions; 40 mg Daily x3 days, 30 mg daily x3 days, 20 mg daily x3 days, 10 mg daily x3 days Referrals: [facility] [Provider Group, Neurosurgery] Print Language: Haitian
[2025-05-03 13:49] LABS: MANUAL DIFF FLAG NO
[2025-05-03 13:52] LABS: Hematocrit 36.8 % (42.0-52.0); Hemoglobin 12.5 g/dl (14.0-18.0); Imm Gran Abs Auto 0.02 X10*3/uL (0.00-0.03); Imm Gran Pct Auto 0.3 % (0.0-0.4); Lymphocytes Absolute Auto 1.6 X10*3/uL (1.2-4.9); Mean Corpuscular HGB Conc 34.0 g/dl (31.0-36.0); Mean Corpuscular Hemoglobin 30.3 pg (27.0-33.0); Mean Corpuscular Volume 89.3 fL (80.0-98.0); NRBC Abs Auto 0.000 X10*3/uL (0.0-0.012); NRBC Pct Auto 0.0 /100WBC (0.0-0.2); Platelet Count 215 X10*3/uL (160-400); Red Blood Count 4.12 X10*6/uL (4.60-5.80); White Blood Count 6.1 X10*3/uL (4.8-10.8)
[2025-05-03 14:08] LABS: Alanine Aminotransferase 26 U/L (0-40); Albumin Level 4.0 g/dL (3.5-5.0); Alkaline Phosphatase 138 U/L (39-117); Anion Gap 12 (12-20); Aspartate Amino Transferase 21 U/L (5-37); Blood Urea Nitrogen 14 mg/dL (9-16); Calcium 8.9 mg/dL (8.4-10.2); Carbon Dioxide 25 mmol/L (22-29); Chloride 104 mmol/L (96-108); Creatinine Clr Calc Pharmacy 73.1; Estimated Glomerular Filt Rate > 60; Magnesium 1.9 mg/dL (1.6-2.6); Potassium 3.5 mmol/L (3.3-5.1); Sodium 137 mmol/L (135-145); Total Protein 6.9 g/dL (6.5-8.0)
[2025-05-03 15:09] VITALS: BP 158/74; PULSE 63; RESP 18; TEMP 36.6; O2SAT 97
--- NOTE | 2025-05-03 15:25 | PC.NURSE ---
when the pt stood up the pt increased, had a real hard time standing up straight
--- OUTSIDE RECORDS SUMMARY | 2025-05-03 15:32 | XMS_ITS | Encounter Summary ---
Author Organization [facility] Address [address] [place] [address] Care Team Providers Care Stretching Machine Operator Name Role Phone Romero Licea MD Primary Care Provi clifton Shana Mike MANUFACTURING GROUP LEADER Unavailable [phone] Julius Canseco MD Unavailable Encounter Details Date Type Department Care Team (Late st Contact Info) Description 08/03/2021 Procedure Pass [facility] Endoscopy [address] [place] [address] Social History Tobacco Use Types [...] on filedocumented in this encounter Care Teams Stretching Machine Operator Relationship Specialty Start Date End Date Romero Licea MD [address] [place], [place] [id number] PCP - General Family Medicine 08/03/21 Shana Mike NP [address] [place] [address] Nurse Practitioner Physical Medicine and Rehabilitation 11/15/22 Julius Canseco MD [address] [place], [place] [id number] Consulting Physician Physical Medicine and Rehabilitation 04/11/23 documented as of this encounter
--- OUTSIDE RECORDS SUMMARY | 2025-05-03 15:32 | XMS_ITS | Encounter Summary ---
Author Organization [facility] Address [address] [place] [address] Care Team Providers Care Practice Office Associate Name Role Phone Shanae Zarate MD Unavailable Renee Mora DO Primary Care Provider [phone] Reason for Visit * Reason Comments Med Refill Encounter Details Date Type Department Care Team (Late st Contact Info) Description 07/15/2024 Refill [facility] Practice [address] [facility] [address] [place], [place] [id number] Gay Rosario MD [address] [facility] [address] [place], [place] [id number] Diabetic polyneuropathy associated with type 2 diabetes mellitus ([facility]/HCC) Social History Tobacco Use Types Packs/Day [...] often do you attend chur ch or adventist services? Patient declined 07/21/2022 Do you belong to any clubs o r organizations such as christian groups, unions, fraternal or athletic groups, or [...] Date Recorded Depression Risk (PHQ2) Score 0 [facility] - Occupational Stress Questionnaire [...] RFA TEAM No staff refills--now living in [place]--see Metformin request--see Apr 2024 refill request documented [...] documented as of this encounter Care Teams Practice Office Associate Relationship Specialty Start Date End Date Renee Mora DO [address] [place] [address] PCP - General Family Medicine 06/04/24 Shanae Zarate MD [address] [place] [address] Consulting Physician Cardiology 10/13/20 documented as of this encounter
--- OUTSIDE RECORDS SUMMARY | 2025-05-03 15:32 | XMS_ITS | Encounter Summary ---
Author Organization [facility] Address [address] [place] [address] Care Team Providers Care Powder Shoveler Name Role Phone Romero Licea MD Primary Care Provi clifton Shana Mike NP Unavailable [phone] Julius Canseco MD Unavailable Encounter Details Date Type Department Care Team (Late st Contact Info) Description 10/08/2021 Procedure Pass [facility] Surgery [address] [place] [address] Social History Tobacco Use Types Packs/Day Years Used Date Smoking Tobacco: Former Cigarettes 2 10 Smokeless Tobacco: Never Alcohol Use Standard Drinks/Week Comments No 0 (1 standard drink = 0.6 oz pur e alcohol) Sex and Gender Information Value Date Recorded Sex Assigned at Not on file Legal Sex Male 10:38 AM [facility] Gender Identity [...] on filedocumented in this encounter Care Teams Powder Shoveler Relationship Specialty Start Date End Date Romero Licea MD [address] [place], [place] [phone] PCP - General Family Medicine 08/03/21 Shana Mike NP [address] [place] [address] Nurse Practitioner Physical Medicine and Rehabilitation 11/15/22 Julius Canseco MD [address] [place] [address] Consulting Physician Physical Medicine and Rehabilitation 04/11/23 documented as of this encounter
--- OUTSIDE RECORDS SUMMARY | 2025-05-03 15:32 | XMS_ITS | Encounter Summary ---
Author Organization [facility] Address [address] [place] [address] Care Team Providers Care Baseball Glove Stuffer Name Role Phone Shanae Zarate MD Unavailable Renee Mora DO Primary Care Provider [phone] Reason for Visit * Reason Comments Med Refill Encounter Details Date Type Department Care Team (Late st Contact Info) Description 06/23/[address] [facility] [address] [place] [address] [place] [address] [place] [address] [address] [place] [address] Diabetic polyneuropathy associated with type 2 diabetes mellitus ([facility]/HCC) Social History Tobacco Use Types Packs/Day [...] How often do you attend chur or sikhism services? Patient declined 07/21/2022 Do you belong to any clubs o r organizations such as yazidi groups, unions, fraternal or athletic groups, or [...] Date Recorded Depression Risk (PHQ2) Score 0 [facility] - Occupational Stress Questionnaire Answer [...] place to sleep or slept in a senior care (including now)? No 07/21/2022 Sex and Gender [...] documented as of this encounter Care Teams Baseball Glove Stuffer Relationship Specialty Start Date End Date Renee Mora DO [address] [place], [place] [phone] PCP - General Family Medicine 06/04/24 Shanae Zarate MD [address] [place] [address] Consulting Physician Cardiology 10/13/20 documented as of this encounter
--- OUTSIDE RECORDS SUMMARY | 2025-05-03 15:32 | XMS_ITS | Clinical Summary ---
Author Organization [facility] Address [address] [place] [address] Care Team Providers Care Packer Sausage And Wiener Name Role Phone Shanae Zarate MD Unavailable Renee Mora DO Primary Care Provider [phone] Allergies Active Allergy Reactions Criticality Noted Date [...] - submitted cover my meds 06/16/22 (Toussaint: [id number]) - approved 06/02/22-06/16/23 Request #[id number] [place] Problem Noted Date Diagnosed Date Type 2 diabetes mellitus wit h diabetic peripheral angiopathy without gangrene, with long-term current use of insulin 07/01/2023 Type 2 diabetes mellitus with other specified co mplication 07/01/2023 Overview (07/01/2023): With mixed hyperlipidemia Assessment & Plan (07/01/2023 1:51 PM [facility]): Diabetes is controlled. A1c up because he was off trulicity for a while but been back on it. Stable. Continue present management. Age-related osteoporosis wit hout current pathological fracture 07/26/2022 Overview (07/26/2022): DXA 07/01 right hip -3.6, left hip -3.5 Assessment & Plan (07/26/2022 10:48 AM [facility]): Recent pelvic fracture. Counseling about osteopenia/osteoporosis. [...] Assessment & Plan (07/26/2022 10:55 AM [facility]): Patient requested refill of his pain [...] is for him to consult with a outcomes specialist or even update his spine imaging. I will defer this to his pain management team. Bilateral carpal tunnel syndrome 07/26/2022 Overview (07/26/2022): EMG/NCV 07/01 Assessment & Plan (07/26/2022 10:56 AM [facility]): I will request his records from [...] Assessment & Plan (10/13/2020 11:44 AM [facility]): Condition is newly identified. Detailed treatment [...] agreement to get in touch with our [facility] team to help him get started on care, assist him to transition to terminal computer operator community and for healthy behaviors to manage [...] (03/11/2021 1:37 PM MST): Follow-up with his sole conditioner. Abdominal aortic atherosclerosis 06/29/2019 Overview (06/29/2019): CT [...] to stent. Advised to follow-up with his head still operator. Benign essential HTN 06/29/2019 Assessment & Plan [...] comorbidities Paroxysmal atrial fibrillation 06/29/2019 Overview (07/01/2023): [id number] Score 3 Assessment & Plan (07/01/2023 1:50 [...] (10/13/2020): Added automatically from request for surgery [id number] Resolved Problems Problem Noted Date Diagnosed Date [...] Never 07/21/2022 How often do you attend [facility] or buddhism services? Patient declined 07/21/2022 Do you belong to any clubs o r organizations such as bahai groups, unions, fraternal or athletic groups, or [...] Recorded Depression Risk (PHQ2) Score 0 [facility] - Occupational Stress Questionnaire Answer Date [...] Legal Sex Male 1:57 AM [facility] Gender Identity Not on file Sexual [...] Mass Index 27.67 07/21/2022 1:37 PM [facility] Plan of Treatment Health Maintenance Due [...] 07/21/2023 07/21/2022 Complete Annual HRA 07/21/2023 07/21/2022, 04/17/2020 Influenza Vaccine (#1) 2025 , 04/28/2016, 04/28/2016 DTaP,Tdap,and Td Vaccines (3 - Td or Tdap) 06/30/2028 06/30/2018, 03/31/2016 Colonoscopy 08/03/2031 08/03/2021 Colorectal Cancer Screening 08/03/2031 Hepatitis C Screening Completed 07/26/2018 Pneumococcal Vaccine: 50+ Years Completed 07/21/2022, 07/26/2018, 03/31/2016 Hepatitis B Vaccines Aged Out No long er eligible based on patient's age to complete this topic Procedures Procedure Name Priority Date/Time Associated Diagnosis Comments COLONOSCOPY Routine 08/03/2021 OCCULT BLOOD X 1, STOOL Routine 10/15/2020 12:00 AM [facility] Screening for colorectal cancer HEPATITIS C VIRUS (HCV) ANTIBODY WITH REFLEX TO QUALITATIVE ISABEL Routine 07/26/2018 from Last 3 Months or Most Recently Relevant to Health Maintenance Results * Colonoscopy (08/03/2021) [facility] Colonoscopy colon polyps Historical Provider HEALTH MAINTENANCE Final Result * Occult blood x 1, stool (10/15/2020 12:00 AM [facility]) [facility] Occult Bld Immunochem Negative Negative [employer] Comment: Assay sensitivity is >95% when 50 ug Hb/g of stool is present. Clinical sensitivity for colorectal cancer is 87%, and for large adenomas is 47%, based on an evaluation of 240 individuals in a premarket commercial data set used for FDA approval. Overall, clinical specificity is 97.7%. Stool (Per Rectum) 10/15/2020 10/22/2020 7:18 PM [facility] Narrative [facility] - 10/15/2020 12:00 AM [facility] Time/Date of collection taken from specimen. Copy being sent to: Results Only Account [employer] Romero Lovett MD LAB BODY FLUIDS AND STOOLS OR DERABLES Edited Result - Final [facility] [address] [place] [address] * Hepatitis C Virus (HCV) Antibody With Reflex to Qualitative ISABEL (07/26/2018) [facility] HCV Ab 0.08 <=0.79 Index [facility] Hepatitis C Ab Nonreactive Nonreactive F [facility] Comment: Performance characteristics of this [...] MD LAB BLOOD ORDERABLES Final Re sult [facility] Anywhere [address] from Last 3 Months or Most Recently Relevant to Health Maintenance Care Teams Packer Sausage And Wiener Relationship Specialty Start Date End Date Renee Mora DO [address] [place] [address] PCP - General Family Medicine 06/04/24 Shanae Zarate MD [address] [place] [address] Consulting Physician Cardiology 10/13/20
--- OUTSIDE RECORDS SUMMARY | 2025-05-03 15:32 | XMS_ITS | Encounter Summary ---
Author Organization [facility] Address [address] [place] [address] Care Team Providers Care Design Inserter Name Role Phone Romero Licea MD Primary Care Provi clifton Shana Mike NP Unavailable [phone] Julius Canseco MD Unavailable Encounter Details Date Type Department Care Team (Late st Contact Info) Description 10/22/2021 Procedure Pass [facility] Surgery [address] [place] [address] Social History Tobacco Use Types [...] on filedocumented in this encounter Care Teams Design Inserter Relationship Specialty Start Date End Date Romero Licea MD [address] [place], [place] [id number] PCP - General Family Medicine 08/03/21 Shana Mike NP [address] [place] [address] Nurse Practitioner Physical Medicine and Rehabilitation 11/15/22 Julius Canseco MD [address] [place] [address] Consulting Physician Physical Medicine and Rehabilitation 04/11/23 documented as of this encounter
--- OUTSIDE RECORDS SUMMARY | 2025-05-03 15:32 | XMS_ITS | Encounter Summary ---
Author Organization [facility] Address [address] [place] [address] Care Team Providers Care Supervisor Dental Laboratory Name Role Phone Ubaldo Spring MD Primary Care Provider + [phone] Romero Licea MD Primary Care Provi clifton Shana Mike NP Unavailable [phone] Julius Canseco MD Unavailable [phone] Encounter Details Date Type Department Care Team (Late st Contact Info) Description 09/23/2017 Procedure Pass [facility] Endoscopy [address] [place] [address] Social History Tobacco Use Types Packs/Day Years Used Date Smoking Tobacco: Former Cigarettes 2 10 2 - 2010 Smokeless Tobacco: Never Alcohol Use Standard Drinks/Week Comments No 0 (1 standard drink = 0.6 oz pur e alcohol) Sex and Gender Information Value Date Recorded Sex Assigned at Not on file Legal Sex Male 10:38 AM [facility] Gender Identity Not on file Sexual Orientation Not on file documented as of this encounter Plan of Treatment Not on file documented as of this encounter Visit Diagnoses Not on filedocumented in this encounter Care Teams Supervisor Dental Laboratory Relationship Specialty Start Date End Date Ubaldo Spring MD PCP - General Family Medicine 09/20/17 08/02/21 Romero Licea MD [address] [place] [address] PCP - General Family Medicine 08/03/21 Shana Mike NP [address] [place] [address] Nurse Practitioner Physical Medicine and Rehabilitation 11/15/22 Julius Canseco MD [address] [place] [address] Consulting Physician Physical Medicine and Rehabilitation 04/11/23 documented as of this encounter
--- OUTSIDE RECORDS SUMMARY | 2025-05-03 15:32 | XMS_ITS | Encounter Summary ---
Author Organization [facility] Address [address] [place] [address] Care Team Providers Care Camera Person Name Role Phone Ubaldo Spring MD Primary Care Provider + [phone] Romero Licea MD Primary Care Provi clifton Shana Mike NP Unavailable [phone] Julius Canseco MD Unavailable Encounter Details Date Type Department Care Team (Late st Contact Info) Description 09/24/2017 Procedure Pass [facility] Endoscopy [address] [place] [address] Social History Tobacco Use Types [...] on filedocumented in this encounter Care Teams Camera Person Relationship Specialty Start Date End Date Ubaldo Spring MD PCP - General Family Medicine 09/20/17 08/02/21 Romero Licea MD [address] [place] [address] PCP - General Family Medicine 08/03/21 Shana Mike NP [address] [place] [address] Nurse Practitioner Physical Medicine and Rehabilitation 11/15/22 Julius Canseco MD [address] [place] [address] Consulting Physician Physical Medicine and Rehabilitation 04/11/23 documented as of this encounter
--- OUTSIDE RECORDS SUMMARY | 2025-05-03 15:33 | XMS_ITS | Encounter Summary ---
Author Organization [facility] Address [address] [place] [address] Care Team Providers Care Swage Tender Name Role Phone Romero Licea MD Primary Care Provi clifton Shana Mike AIRFRAME AND POWERPLANT TECHNICIAN Unavailable [phone] Julius Canseco MD Unavailable Encounter Details Date Type Department Care Team (Late st Contact Info) Description 04/25/2023 Procedure Pass [facility] Surgery [address] [place] [address] Social History Tobacco Use Types [...] on filedocumented in this encounter Care Teams Swage Tender Relationship Specialty Start Date End Date Romero Licea MD [address] [place], [place] [id number] PCP - General Family Medicine 08/03/21 Shana Mike, JAYNA [address] [place], [place] [id number] Nurse Practitioner Physical Medicine and Rehabilitation 5/8/23 Julius Canseco MD [address] [place] [address] Consulting Physician Physical Medicine and Rehabilitation 04/11/23 documented as of this encounter
--- OUTSIDE RECORDS SUMMARY | 2025-05-03 15:33 | XMS_ITS | Encounter Summary ---
Author Organization [facility] Address [address] [place] [address] Care Team Providers Care Hoop Driving Machine Operator Name Role Phone Romero Licea MD Primary Care Provider Shanae Zarate MD Unavailable Princess Monroy CTO Unavailable [phone] Luh NashD Unavailable Cathy Tee RN Unavailable Romero Licea MD Unavailable Renee Mora DO Unavailable Renee Mora DO Primary Care Provider Reason for Visit * Reason Comments Med Refill Encounter Details Date Type Department Care Team (Late st Contact Info) Description 05/04/2019 Refill [facility] [address] [place], [place] [address] Nirmal Huizar MD [address] [place] [address] Social History Tobacco Use Types Packs/Day Years Used Date Smoking Tobacco: Never Assessed Sex and Gender Information Value Date Recorded Sex Assigned at Not on file Legal Sex Male 1:57 AM [facility] Gender Identity Not on file Sexual Orientation Not on file documented as of this encounter Plan of Treatment Not on file documented as of this encounter Visit Diagnoses Not on filedocumented in this encounter Care Teams Hoop Driving Machine Operator Relationship Specialty Start Date End Date Romero Licea MD PCP - General Family Medicine 06/27/19 05/27/24 Romero Licea MD [address] [place] [address] PCP - Medicare Advantage - Attributed PCP 10/09/22 07/10/23 Renee Mora DO [address] [place] [address] PCP - Medicare Advantage - Attributed PCP 07/11/23 06/09/24 Renee Mora DO [address] [place] [address] PCP - General Family Medicine 06/04/24 Shanae Zarate MD [address] [place] [address] Consulting Physician Cardiology 10/13/20 Princess Monroy LCSW [address] [place] [address] Head Of Sales And Marketing Ice Guard Inspector 10/31/20 05/27/24 Luh Nash, HunterD [address] [place] [address] Clinical Pharmacist Pharmacy 11/24/20 03/04/22 Cathy Tee, KAMERON [address] [place] [address] [facility] [place] [place] [address] Sole Stitcher Hand ( Nurse) Care Management 08/17/21 documented as of this encounter
--- OUTSIDE RECORDS SUMMARY | 2025-05-03 15:33 | XMS_ITS | Encounter Summary ---
Author Organization [facility] Address [address] [place] [address] Care Team Providers Care Pastry Cook Name Role Phone Romero Licea MD Primary Care Provider Shanae Zarate MD Unavailable Pirncess Monroy GRE INSTRUCTOR Unavailable [phone] Luh NashD Unavailable Cathy Tee RN Unavailable Romero Licea MD Unavailable Renee Mora DO Unavailable Renee Mora DO Primary Care Provider Reason for Visit * Reason Comments Med Refill Encounter Details Date Type Department Care Team (Late st Contact Info) Description 05/25/2019 Refill [facility] [address] [place], [place] [address] Nirmal Huizar MD [address] [place] [address] Social History Tobacco Use Types Packs/Day Years [...] on filedocumented in this encounter Care Teams Pastry Cook Relationship Specialty Start Date End Date Romero Licea MD PCP - General Family Medicine 06/27/19 05/27/24 Romero Licea MD [address] [place] [address] PCP - Medicare Advantage - Attributed PCP 10/09/22 07/10/23 Renee Mora DO [address] [place] [address] PCP - Medicare Advantage - Attributed PCP 07/11/23 06/09/24 Renee Mora DO [address] [place] [address] PCP - General Family Medicine 06/04/24 Shanae Zarate MD [address] [place] [address] Consulting Physician Cardiology 10/13/20 Princess Monroy LCSW [address] [place] [address] Trimming Cutter Machine Ladies' Hat Trimmer 10/31/20 05/27/24 Luh Nash, HunterD [address] [place] [address] Clinical Pharmacist Pharmacy 11/24/20 03/04/22 Cathy Tee, KAMERON [address] [place] [address] [place] [address] Yarn Sorter ( Nurse) Care Management 08/17/21 documented as of this encounter
--- OUTSIDE RECORDS SUMMARY | 2025-05-03 15:33 | XMS_ITS | Encounter Summary ---
Author Organization [facility] Address [address] [place] [address] Care Team Providers Care Quality Control Coordinator Name Role Phone Romero Licea MD Primary Care Provider Shanae Zarate MD Unavailable Princess Monroy SOLE ROUNDING MACHINE OPERATOR Unavailable [phone] Luh NashD Unavailable Cathy Tee RN Unavailable Romero Licea MD Unavailable Renee Mora DO Unavailable Renee Mora DO Primary Care Provider Reason for Visit * Reason Comments Med Refill Encounter Details Date Type Department Care Team (Late st Contact Info) Description 06/27/2019 Refill [facility] [address] [place], [place] [address] Nirmal Huizar MD [address] [place] [address] Social History Tobacco Use Types Packs/Day Years Used Date Smoking Tobacco: Never Assessed Sex and Gender Information Value Date Recorded Sex Assigned at Not on file Legal Sex Male 1:57 AM [facility] Gender Identity Not on file Sexual Orientation Not on file documented as of this encounter Plan of Treatment Not on file documented as of this encounter Visit Diagnoses Not on filedocumented in this encounter Care Teams Quality Control Coordinator Relationship Specialty Start Date End Date Romero Licea MD PCP - General Family Medicine 06/27/19 05/27/24 Romero Licea MD [address] [place] [address] PCP - Medicare Advantage - Attributed PCP 10/09/22 07/10/23 Renee Mora DO [address] [place] [address] PCP - Medicare Advantage - Attributed PCP 07/11/23 06/09/24 Renee Mora DO [address] [place] [address] PCP - General Family Medicine 06/04/24 Shanae Zarate MD [address] [place] [address] Consulting Physician Cardiology 10/13/20 Princess Monroy LCSW [address] [place] [address] Fur Examiner Cow Buyer 10/31/20 05/27/24 Luh Nash, HunterD [address] [place] [address] Clinical Pharmacist Pharmacy 11/24/20 03/04/22 Cathy Tee, KAMERON [address] [place] [address] [facility] [address] Postal Carrier ( Nurse) Care Management 08/17/21 documented as of this encounter
--- OUTSIDE RECORDS SUMMARY | 2025-05-03 15:33 | XMS_ITS | Encounter Summary ---
Author Organization [facility] Address [address] [place] [address] Care Team Providers Care Network Announcer Name Role Phone Romero Licea MD Primary Care Provi clifton Shana Mike NP Unavailable [phone] Julius Canseco MD Unavailable Encounter Details Date Type Department Care Team (Late st Contact Info) Description 01/21/2022 Procedure Pass [facility] Surgery [address] [place] [address] Social History Tobacco Use Types [...] on filedocumented in this encounter Care Teams Network Announcer Relationship Specialty Start Date End Date Romero Licea MD [address] [place], [place] [id number] PCP - General Family Medicine 08/03/21 Shana Mike NP [address] [place] [address] Nurse Practitioner Physical Medicine and Rehabilitation 11/15/22 Julius Canseco MD [address] [place] [address] Consulting Physician Physical Medicine and Rehabilitation 04/11/23 documented as of this encounter
--- OUTSIDE RECORDS SUMMARY | 2025-05-03 15:33 | XMS_ITS | Encounter Summary ---
Author Organization [facility] Address [address] [place] [address] Care Team Providers Care Appliance Repair Technician Name Role Phone Romero Licea MD Primary Care Provi clifton Shana Mike TERADATA DEVELOPER Unavailable [phone] Julius Canseco MD Unavailable Encounter Details Date Type Department Care Team (Late st Contact Info) Description 04/11/2023 Procedure Pass [facility] Surgery [address] [place] [address] Social History Tobacco Use Types [...] on filedocumented in this encounter Care Teams Appliance Repair Technician Relationship Specialty Start Date End Date Romero Licea MD [address] [place], [place] [id number] PCP - General Family Medicine 08/03/21 Shana Mike, JAYNA [address] [place], [place] [id number] Nurse Practitioner Physical Medicine and Rehabilitation 5/8/23 Julius Canseco MD [address] [place] [address] Consulting Physician Physical Medicine and Rehabilitation 04/11/23 documented as of this encounter
--- OUTSIDE RECORDS SUMMARY | 2025-05-03 15:33 | XMS_ITS | Encounter Summary ---
Author Organization [facility] Address [address] [place] [address] Care Team Providers Care Floor Layer Apprentice Name Role Phone Romero Licea MD Primary Care Provi clifton Shana Mike NP Unavailable [phone] Julius Canseco MD Unavailable Encounter Details Date Type Department Care Team (Late st Contact Info) Description 02/04/2022 Procedure Pass [facility] Surgery [address] [place] [address] Social History Tobacco Use Types [...] on filedocumented in this encounter Care Teams Floor Layer Apprentice Relationship Specialty Start Date End Date Romero Licea MD [address] [place], [place] [id number] PCP - General Family Medicine 08/03/21 Shana Mike NP [address] [place] [address] Nurse Practitioner Physical Medicine and Rehabilitation 11/15/22 Julius Canseco MD [address] [place] [address] Consulting Physician Physical Medicine and Rehabilitation 04/11/23 documented as of this encounter
--- OUTSIDE RECORDS SUMMARY | 2025-05-03 15:33 | XMS_ITS | Clinical Summary ---
Author Organization [facility] Address [address] [place] [address] Care Team Providers Care Bar Welder Name Role Phone Romero Licea MD Primary Care Provi clifton Shana Mike NP Unavailable [phone] Julius Canseco MD Unavailable Allergies No known [...] (10/06/2021): Added automatically from request for surgery [id number] Lumbar radiculopathy 10/05/2021 Overview (10/05/2021): Added automatically from request for surgery [id number] Fever 09/23/2017 Asthma 09/21/2017 HIV (human immunodeficiency virus infection) COPD (chronic obstructive pulmonary disease) Hypertension 09/21/2017 Polycythemia 09/21/2017 Hyponatremia 09/21/2017 Dehydration 09/20/[address] scan, stomach 09/20/2017 Overview (09/23/2017): Added automatically from request for surgery [id number] Social History Tobacco Use Types Packs/Day Years Used Date Smoking Tobacco: Former Cigarettes 2 10 Smokeless Tobacco: Never Tobacco Cessation:Counseling Given: Not Answered Alcohol Use Standard Drinks/Week Comments No 0 (1 standard drink = 0.6 oz pur e alcohol) Sex and Gender Information Value Date Recorded Sex Assigned at Not on file Legal Sex Male 10:38 AM [facility] Gender Identity Not on file Sexual Orientation Not on file Last Filed Vital Signs Vital Sign Reading Time Taken Comments Blood Pressure 128/72 04/11/2023 5:00 PM [facility] Pulse 66 04/11/2023 5:00 PM [facility] Temperature 36.6 C (97.8 F) 04/11/2023 2:43 PM [facility] Respiratory Rate 16 04/11/2023 5:00 PM [facility] Oxygen Saturation 99% 04/11/2023 5:00 PM [facility] Inhaled Oxygen Concentration - - [...] abdomen pelvis with contrast (09/21/2017 8:44 PM [facility]) Anatomical Region Laterality Modality Abdomen, Chest, Pelvis, Hip Comp uted Tomography 09/21/2017 8:42 PM [facility] Narrative 09/21/2017 8:[address] [facility] [address] THORAX, ABDOMEN AND PELVIS [...] * (ABNORMAL) Hemoglobin A1c (09/21/2017 4:47 AM [facility]) Hemoglobin A1C 8.5(H) <=5.7 % 09/21/2017 9:55 AM [facility] EAG 197.3 mg/dL 09/21/2017 9:55 AM [facility] Blood BLOOD SPECIMEN / Unknown Venipuncture / Unknown 09/21/2017 4:47 AM [facility] 09/21/2017 4:57 AM MST Narrative [facility] - 09/21/2017 9:55 AM [facility] The [place] Diabetes Association (ADA) guidelines for interpreting Hemoglobin A1C are as follows: Non-Diabetic patient: <5.7% Increased risk for future Diabetes: 5.7-6.4% ADA diagnostic criteria for Diabetes: >6.4% Values for patients with Diabetes: Result <7.0%: Meets ADA's recommendation goal for therapy. Result 7.0-8.0%: Exceeds ADA's recommended goal. Result >8.0%: ADA recommends reevaluation of therapy. us Dre Perez MD LAB BLOOD ORDERABLES Bess chavez Result [facility] [id number] [id number], [facility] [phone] from Last 3 Months or Most Recently Relevant to Health Maintenance Insurance [employer]AGE [employer]AGE [employer] MEDICARE ADVANTAGE C[employer] MEDICARE ADVANTAGE Advance Directives For more information, please contact: [phone] * Full Code (Latest Code Status on File) Date Activated Date Inactivated Comments 09/20/2017 8:25 PM 09/26/2017 4:14 PM Care Teams Bar Welder Relationship Specialty Start Date End Date Romero Licea MD [address] [place] [phone] PCP - General Family Medicine 08/03/21 Shana Mike NP [address] [place] [phone] Nurse Practitioner Physical Medicine and Rehabilitation 11/15/22 Julius Canseco MD [address] [place], [place] [id number] Consulting Physician Physical Medicine and Rehabilitation 04/11/23
[2025-05-03 16:28] VITALS: BP 158/74; PULSE 63; RESP 18; TEMP 36.6; O2SAT 97
== END 2025-05-03 16:29 | disposition home or self-care (01) ==
PROVIDERS: Emergency Provider Emergency Medicine; PCP Physician Assistant
DX: M54.50 Low back pain, unspecified (principal); M79.606 Pain in leg, unspecified; M81.0 Age-related osteoporosis without current pathological fracture; J44.9 Chronic obstructive pulmonary disease, unspecified; E11.9 Type 2 diabetes mellitus without complications; I10 Essential (primary) hypertension; Z79.899 Other long term (current) drug therapy
CPT/HCPCS: 36415; 72131; 73700; 80048; 80076; 83735; 85025; 85652; 86140; 96374; 99284; J1171

== ENCOUNTER → 2025-05-03 13:04 | Outpatient (BNV) | payer MEDICARE, SELFPAY | PROVIDERS: Emergency Provider Emergency Medicine; PCP Physician Assistant; Visit Provider Radiology Diagnostic Radiology | DX: M25.552 Pain in left hip (principal); M54.50 Low back pain, unspecified; W19.XXXA Unspecified fall, initial encounter | CPT/HCPCS: 72131; 73700 ==

== ENCOUNTER 2025-05-08 12:57 | Outpatient (AMB) | payer MEDICARE, SELFPAY ==
--- NOTE | 2025-05-08 13:13 | MHC.OFFVIS ---
Vital Signs 05/08/25 13:14 Height 5 ft 9 in BMI Reason not done Patient refused/unable BP 122/62 Blood Pressure Location Lt brachial Position Sitting Pulse 66 Pulse Source Pulse Oximeter Intake Visit Reasons: 3 mth s/p echo/preop GI colonoscopy Allergies Seasonal Allergies Allergy (Mild, Verified 05/03/25 13:06) sneezing Medication List - Last Reconciled 05/08/25 by Immanuel Nguyen MD albuterol sulfate 90 mcg/actuation 2 puffs inhalation Q6H PRN albuterol sulfate 2.5 mg inhalation Q4-6H PRN aspirin (Adult Aspirin Regimen) 81 mg PO DAILY atorvastatin 40 mg PO BEDTIME qxvrnzncb-ftciuzna-dwhjkqm ala (Biktarvy) PO bisacodyl (Dulcolax (bisacodyl)) 10 mg (2 x 5 mg) PO BEDTIME blood-glucose sensor ([employer] Charlie 3 Plus Sensor device) Apply 1 new sensor every 15 days as directed to monitor blood glucose continuously. blood-glucose,collection systems consultant,cont ([employer] Charlie 3 Mize) Use daily to monitor blood glucose levels continuously. diazepam (Valium) 5 mg PO TID PRN dulaglutide (Trulicity) 3 mg (0.5 mL) subcut QWEEK escitalopram oxalate 10 mg PO DAILY ferrous gluconate 324 mg PO DAILY fluticasone furoate-vilanterol 100-25 mcg/dose (Breo Ellipta) 1 inh inhalation DAILY gabapentin 600 mg (2 x 300 mg) PO TID 30 days glucose (Dex4 Glucose Quick Dissolve) 16 grams (4 x 4 gram) PO Q15M PRN insulin glargine (Lantus Solostar U-100 Insulin) 20 units (0.2 mL) subcut QPM ipratropium-albuterol 0.5 mg-3 mg(2.5 mg base)/3 mL 3 mL inhalation Q6H PRN lisinopril 40 mg PO DAILY metformin 1,000 mg PO BID omeprazole 20 mg PO DAILY pen needle, diabetic Use BID As directed polyethylene glycol 3350 (Miralax) 238 grams PO ONCE prednisone 10 mg PO DIRECTED trazodone 50 mg PO BEDTIME umeclidinium 62.5 mcg/actuation (Incruse Ellipta) 1 inh inhalation DAILY HPI Comments Details: Kvng returns for follow-up regarding coronary artery disease. Previously living in [facility]. Per notes, PCI to LAD/RCA from 2016. There is mention of paroxysmal atrial fibrillation but had maintenance sinus for the most part apparently. Peripheral arterial disease the left leg. Diabetes, HIV, dyslipidemia. Bilateral wheezing is mentioned as a diagnosis. History of COPD but apparently he has never smoked. History of second-degree smoke. Additionally, history of GI bleeding in the past and apparently he has undergone an elective colonoscopy with polyp removal. He was doing fine without any issues and apparently was walking extra without any symptoms. He could go even 2 flights of stairs, walk up inclines without cardiac symptoms. However, for the last month or so he has been getting severely weak and currently he is in a wheelchair. He is awaiting neurosurgery appointment soon. [facility] Medical History PAF (paroxysmal atrial fibrillation) Weight loss Hyperlipidemia Diabetes High blood pressure Surgical History H/O colonoscopy H/O partial thyroidectomy Hx of heart artery stent Family History Father History of quadruple bypass Lung cancer Mother No problems noted. Social History Housing: House Housing Other:: Lives with [facility]. Normally lived in an , but is currently in the shop Alcohol intake: never Patient Tobacco Use Status: Never used Tobacco e-Cigarette/Vaping Use: Never Used Second Hand Smoke Exposure: Yes Substance Use Type: Marijuana service: No Current occupational status: retired Cognitive needs: No Hearing needs: Yes (Hearing aids. Did not put them in today. ) Vision needs: No Review of Systems Const Denies weakness ENT Denies dizziness Card Denies chest pain, Denies chest pain with activity, Denies syncope, Denies rapid heart rate, Denies pedal edema, Denies edema, Denies leg edema, Denies lightheadedness, Denies palpitations, Denies dyspnea, Denies dyspnea on exertion and Denies orthopnea Resp Denies cough, Denies dyspnea and Denies dyspnea on exertion GI Denies hematochezia and Denies change in stool character Musc Reports abnormal gait, Reports myalgias, Reports joint swelling, Denies muscle cramps, Denies muscle weakness, Denies numbness, Denies radiating pain into limb and Denies tingling Neuro Reports abnormal gait, Denies dizziness, Denies syncope, Denies numbness, Denies tingling and Denies weakness Endo Denies palpitations Physical Exam Vital Signs: Last Vital Signs Pulse 66 05/08/25 13:14 BP 122/62 05/08/25 13:14 Const General: comfortable and no acute distress Orientation/consciousness: patient oriented x3 HEENT Other: Unremarkable Head: Yes normal to inspection Neck Neck: Yes normal visual inspection Chest Chest palpation & inspection: normal inspection of the chest Resp Auscultation: wheezes Cardio Palpation: normal PMI Heart sounds: S1 normal heart sound present, S2 normal heart sound present, no gallops, no murmurs and no rubs GI Palpation (GI): Soft to palpation Back/Spine/Pelvis Other: unremarkable Skin General skin exam: no rashes or lesions noted Neuro General: patient oriented x3 Extrem General: Yes normal to inspection Psych Mental Status: mental status grossly normal Assessment & Plan Assessment & Plan (1) Atherosclerotic cardiovascular disease: Code(s): I25.10 - Atherosclerotic heart disease of craig coronary artery without angina pectoris Category: Medical Plan: Per notes, LAD/RCA PCI 2016. Lexiscan myocardial perfusion study 2019 no ischemia. Inferior attenuation artifact. In the recent echocardiogram, LVEF is 60-65% with mild diastolic dysfunction. Mild aortic/mitral calcific changes. Clinically, no angina whatsoever. On aspirin and statins. (2) PAF (paroxysmal atrial fibrillation): Code(s): I48.0 - Paroxysmal atrial fibrillation Category: Medical Plan: Mentioned in his prior records from around 2019, but recent EKG showed essentially sinus rhythm. He is on any anticoagulation. He may need a Holter monitor in the future. (3) Preoperative cardiovascular examination: Code(s): Z01.810 - Encounter for preprocedural cardiovascular examination Category: Medical Plan: Plans for colonoscopy noted. No obvious cardiac contraindications. However, he is currently in a wheelchair and apparently has not been able to walk for almost a month with extreme weakness. Awaiting neurosurgery appointment. Hence may not be suitable for colonoscopy for that reason. We discussed about this today. The weakness/any neurological issue will need to be addressed 1st. Coding Level of Care Code Est Pt Level 4 (02586) Complex EM visit Add On G2211 Diagnoses Atherosclerotic cardiovascular disease I25.10 PAF (paroxysmal atrial fibrillation) I48.0 Preoperative cardiovascular examination Z01.810
[2025-05-08 13:14] VITALS: BP 122/62; PULSE 66
--- OUTSIDE RECORDS SUMMARY | 2025-05-08 16:26 | XMS_ITS | Encounter Summary ---
Author Organization [facility] Address [address] [place] [address] Care Team Providers Care Radiation Technician Name Role Phone Shanae Zarate MD Unavailable Renee Mora DO Primary Care Provider [phone] Reason for Visit * Reason Comments Med Refill Encounter Details Date Type Department Care Team (Late st Contact Info) Description 06/23/2024 Refill [facility] [address] [place] [address] [place] [address] [place] [address] [address] [place] [address] Diabetic polyneuropathy associated with type 2 diabetes mellitus ([facility]/HCC) Social History Tobacco Use Types Packs/Day Years [...] How often do you attend chur or holiness services? Patient declined 07/21/2022 Do you belong to any clubs o r organizations such as latter-day groups, unions, fraternal or athletic groups, or [...] Depression Risk (PHQ2) Score 0 [facility] - Occupational Stress Questionnaire Answer Date [...] documented as of this encounter Care Teams Radiation Technician Relationship Specialty Start Date End Date Renee Mora DO [address] [place], [place] [id number] PCP - General Family Medicine 06/04/24 Shanae Zarate MD [address] [place] [address] [place] [address] Consulting Physician Cardiology 10/13/20 documented as of this encounter
--- OUTSIDE RECORDS SUMMARY | 2025-05-08 16:26 | XMS_ITS | Encounter Summary ---
Author Organization [facility] Address [address] [place] [address] Care Team Providers Care Health Care Assistant Name Role Phone Ubaldo Spring MD Primary Care Provider [phone] Romero Licea MD Primary Care Provi clifton Shana Mike NP Unavailable [phone] Julius Canseco MD Unavailable [phone] Encounter Details Date Type Department Care Team (Late st Contact Info) Description 09/23/2017 Procedure Pass [facility] [address] [place] [address] Social History Tobacco Use Types Packs/Day Years Used Date Smoking Tobacco: Former Cigarettes 2 10 2 - 2010 Smokeless Tobacco: Never Alcohol Use Standard Drinks/Week Comments No 0 (1 standard drink = 0.6 oz pur e alcohol) Sex and Gender Information Value Date Recorded Sex Assigned at Not on file Legal Sex Male 10:38 AM [facility] Gender Identity Not on file Sexual Orientation Not on file documented as of this encounter Plan of Treatment Not on file documented as of this encounter Visit Diagnoses Not on filedocumented in this encounter Care Teams Health Care Assistant Relationship Specialty Start Date End Date Ubaldo Spring MD PCP - General Family Medicine 09/20/17 08/02/21 Romero Licea MD [address] [place] [address] PCP - General Family Medicine 08/03/21 Shana Mike NP [address] [place], [place] [id number] Nurse Practitioner Physical Medicine and Rehabilitation 11/15/22 Julius Canseco MD [address] [place], [place] [phone] Consulting Physician Physical Medicine and Rehabilitation 04/11/23 documented as of this encounter
--- OUTSIDE RECORDS SUMMARY | 2025-05-08 16:26 | XMS_ITS | Clinical Summary ---
Author Organization [facility] Address [address] [place] [address] Care Team Providers Care Hot Tamale Worker Name Role Phone Shanae Zarate MD Unavailable Renee Mora DO Primary Care Provider [phone] Allergies Active Allergy Reactions Criticality Noted Date [...] - submitted cover my meds 06/16/22 (Toussaint: [id number]) - approved 06/02/22-06/16/23 Request #[id number] mo Problem Noted Date Diagnosed Date Type 2 [...] is for him to consult with a laser specialist or even update his spine imaging. 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 Abdominal aortic atherosclerosis 06/29/2019 Overview (06/29/2019): CT [...] to stent. Advised to follow-up with his professor of business administration. Benign essential HTN 06/29/2019 Assessment & Plan [...] comorbidities Paroxysmal atrial fibrillation 06/29/2019 Overview (07/01/2023): [id number] Score 3 Assessment & Plan (07/01/2023 1:50 [...] (10/13/2020): Added automatically from request for surgery [id number] Resolved Problems Problem Noted Date Diagnosed Date [...] Never 07/21/2022 How often do you attend [facility] or christianity services? Patient declined 07/21/2022 Do you belong [...] Date Recorded Depression Risk (PHQ2) Score 0 [facility] - Occupational Stress Questionnaire Answer Date Recorded [...] Body Mass Index 27.67 07/21/2022 1:37 PM [facility] Plan of Treatment Health Maintenance [...] to Health Maintenance Results * Colonoscopy (08/03/2021) [facility] Colonoscopy colon polyps Historical Provider HEALTH MAINTENANCE Final Result * Occult blood x 1, stool (10/15/2020 12:00 AM [facility]) [facility] Occult Bld Immunochem Negative Negative [employer] Comment: Assay sensitivity is >95% when 50 ug Hb/g of stool is present. Clinical sensitivity for colorectal cancer is 87%, and for large adenomas is 47%, based on an evaluation of 240 individuals in a premarket commercial data set used for FDA approval. Overall, clinical specificity is 97.7%. Stool (Per Rectum) 10/15/2020 10/22/2020 7:18 PM [facility] Narrative [facility] - 10/15/2020 12:00 AM [facility] Time/Date of collection taken from specimen. Copy being sent to: Results Only Account [employer] Romero Lovett MD LAB BODY FLUIDS AND STOOLS OR DERABLES Edited Result - Final [employer] [facility] [address] [place] [place] [address] * Hepatitis C Virus (HCV) Antibody With Reflex to Qualitative ISABEL (07/26/2018) [facility] HCV Ab 0.08 <=0.79 Index [facility] Hepatitis C Ab Nonreactive Nonreactive [facility] Comment: Performance characteristics of this [...] LAB BLOOD ORDERABLES Final Re sult [facility]ly [facility], [facility] Anywhere [address] from Last 3 Months or Most Recently Relevant to Health Maintenance Care Teams Hot Tamale Worker Relationship Specialty Start Date End Date Renee Mora DO [address] [place] [address] PCP - General Family Medicine 06/04/24 Shanae Zarate MD [address] [place] [address] Consulting Physician Cardiology 10/13/20
--- OUTSIDE RECORDS SUMMARY | 2025-05-08 16:26 | XMS_ITS | Encounter Summary ---
Author Organization [facility] Address [address] [place] [address] Care Team Providers Care Mobile Security Architect Name Role Phone Shanae Zarate MD Unavailable Renee Mora DO Primary Care Provider [phone] Reason for Visit * Reason Comments Med Refill Encounter Details Date Type Department Care Team (Late st Contact Info) Description 07/15/2024 Refill [facility] [address] [place], [place] [phone] Gay Rosario MD [address] [facility] [address] [place], [place] [phone] Diabetic polyneuropathy associated with type 2 diabetes mellitus ([facility]/HCC) Social History Tobacco Use Types Packs/Day [...] often do you attend chur ch or zoroastrian services? Patient declined 07/21/2022 Do you belong [...] Date Recorded Depression Risk (PHQ2) Score 0 [facility] - Occupational Stress Questionnaire Answer [...] RFA TEAM No staff refills--now living in [place]--see Metformin request--see Apr 2024 refill request documented [...] documented as of this encounter Care Teams Mobile Security Architect Relationship Specialty Start Date End Date Renee Mora DO [address] [place] [address] PCP - General Family Medicine 06/04/24 Shanae Zarate MD [address] [place] [address] Consulting Physician Cardiology 10/13/20 documented as of this encounter
--- OUTSIDE RECORDS SUMMARY | 2025-05-08 16:27 | XMS_ITS | Encounter Summary ---
Author Organization [facility] Address [address] [place] [address] Care Team Providers Care Checker Name Role Phone Romero Licea MD Primary Care Provi clifton Shana Mike CARD CUTTER Unavailable [phone] Julius Canseco MD Unavailable Encounter Details Date Type Department Care Team (Late st Contact Info) Description 08/03/2021 Procedure Pass [facility] Endoscopy [address] [place] [address] Social History Tobacco Use Types [...] on filedocumented in this encounter Care Teams Checker Relationship Specialty Start Date End Date Romero Licea MD [address] [place] [address] PCP - General Family Medicine 08/03/21 Shana Mike NP [address] [place] [address] Nurse Practitioner Physical Medicine and Rehabilitation 11/15/22 Julius Canseco MD [address] [place], [place] [phone] Consulting Physician Physical Medicine and Rehabilitation 04/11/23 documented as of this encounter
--- OUTSIDE RECORDS SUMMARY | 2025-05-08 16:27 | XMS_ITS | Encounter Summary ---
Author Organization [facility] Address [address] [place] [address] Care Team Providers Care Office Electrician Name Role Phone Romero Licea MD Primary Care Provider Shanae Zarate MD Unavailable Princess Monroy SENIOR FINANCIAL REPORTING ACCOUNTANT Unavailable [phone] Luh NashD Unavailable Cathy Tee RN Unavailable Romero Licea MD Unavailable Renee Mora DO Unavailable Renee Mora DO Primary Care Provider Reason for Visit * Reason Comments Med Refill Encounter Details Date Type Department Care Team (Late st Contact Info) Description 05/25/2019 Refill [facility] [address] [place], [place] [address] Nirmal Huizar MD [address] [place] [address] Social History Tobacco Use Types Packs/Day Years [...] on filedocumented in this encounter Care Teams Office Electrician Relationship Specialty Start Date End Date Romero Licea MD PCP - General Family Medicine 06/27/19 05/27/24 Romero Licea MD [address] [place] [address] PCP - Medicare Advantage - Attributed PCP 10/09/22 07/10/23 Renee Mora DO [address] [place] [address] PCP - Medicare Advantage - Attributed PCP 07/11/23 06/09/24 Renee Mora DO [address] [place] [address] PCP - General Family Medicine 06/04/24 Shanae Zarate MD [address] [facility] [address] Consulting Physician Cardiology 10/13/20 Princess Monroy LCSW [address] [place] [address] Track Laying Equipment Operator Pediatric Oncologist 10/31/20 05/27/24 Luh Nash, HunterD [address] [place] [address] Clinical Pharmacist Pharmacy 11/24/20 03/04/22 Cathy Tee, KAMERON [address] [place] [address] [place] [address] Motor And Generator Assembler ( Nurse) Care Management 08/17/21 documented as of this encounter
--- OUTSIDE RECORDS SUMMARY | 2025-05-08 16:27 | XMS_ITS | Encounter Summary ---
Author Organization [facility] Address [address] [place] [address] Care Team Providers Care Spray Foam Installer Name Role Phone Romero Licea MD Primary Care Provi clifton Shana Mike ARTILLERY OFFICER Unavailable Julius Canseco MD Unavailable [phone] Encounter Details Date Type Department Care Team (Late st Contact Info) Description 02/04/2022 Procedure Pass [facility] Surgery [address] [place] [address] Social History Tobacco Use Types [...] on filedocumented in this encounter Care Teams Spray Foam Installer Relationship Specialty Start Date End Date Romero Licea MD [address] [place] [address] PCP - General Family Medicine 08/03/21 Shana Mike NP [address] [place], [place] [id number] Nurse Practitioner Physical Medicine and Rehabilitation 11/15/22 Julius Canseco MD [address] [place] [address] Consulting Physician Physical Medicine and Rehabilitation 04/11/23 documented as of this encounter
--- OUTSIDE RECORDS SUMMARY | 2025-05-08 16:27 | XMS_ITS | Encounter Summary ---
Author Organization [facility] Address [address] [place] [address] Care Team Providers Care Loan Associate Name Role Phone Romero Licea MD Primary Care Provi clifton Shana Mike FEATHER TRIMMER Unavailable [phone] Julius Canseco MD Unavailable Encounter Details Date Type Department Care Team (Late st Contact Info) Description 10/22/2021 Procedure Pass [facility] Surgery [address] [place] [address] Social History Tobacco Use Types [...] on filedocumented in this encounter Care Teams Loan Associate Relationship Specialty Start Date End Date Romero Licea MD [address] [place] [address] PCP - General Family Medicine 08/03/21 Shana Mike NP [address] [place] [address] Nurse Practitioner Physical Medicine and Rehabilitation 11/15/22 Julius Canseco MD [address] [place], [place] [id number] Consulting Physician Physical Medicine and Rehabilitation 04/11/23 documented as of this encounter
--- OUTSIDE RECORDS SUMMARY | 2025-05-08 16:27 | XMS_ITS | Encounter Summary ---
Author Organization [facility] Address [address] [place] [address] Care Team Providers Care Radiotelephone Technical Operator Name Role Phone Romero Licea MD Primary Care Provider Shanae Zarate MD Unavailable Princess Monroy IMPORT/EXPORT CLERK Unavailable [phone] Luh NashD Unavailable Cathy Tee RN Unavailable Romero Licea MD Unavailable Renee Mora DO Unavailable Renee Mora DO Primary Care Provider Reason for Visit * Reason Comments Med Refill Encounter Details Date Type Department Care Team (Late st Contact Info) Description 05/04/2019 Refill [facility] [address] [place], [place] [id number] Nirmal Huizar MD [address] [place] [address] Social History Tobacco Use Types Packs/Day Years Used Date Smoking Tobacco: Never Assessed Sex and Gender Information Value Date Recorded Sex Assigned at Not on file Legal Sex Male 1:57 AM [facility] Gender Identity Not on file Sexual Orientation Not on file documented as of this encounter Plan of Treatment Not on file documented as of this encounter Visit Diagnoses Not on filedocumented in this encounter Care Teams Radiotelephone Technical Operator Relationship Specialty Start Date End Date Romero Licea MD PCP - General Family Medicine 06/27/19 05/27/24 Romero Licea MD [address] [place] [address] PCP - Medicare Advantage - Attributed PCP 10/09/22 07/10/23 Renee Mora DO [address] [place] [address] PCP - Medicare Advantage - Attributed PCP 07/11/23 06/09/24 Renee Mora DO [address] [place] [address] PCP - General Family Medicine 06/04/24 Shanae Zarate MD [address] [facility] [address] Consulting Physician Cardiology 10/13/20 Princess Monroy LCSW [address] [place] [address] Pile Fabric Knitter Event Marketing Coordinator 10/31/20 05/27/24 Luh Nash, HunterD [address] [address] [place] [address] Clinical Pharmacist Pharmacy 11/24/20 03/04/22 Cathy Tee, KAMERON [address] [place] [address] [place] [address] Vp Customer Service ( Nurse) Care Management 08/17/21 documented as of this encounter
--- OUTSIDE RECORDS SUMMARY | 2025-05-08 16:27 | XMS_ITS | Encounter Summary ---
Author Organization [facility] Address [address] [place] [address] Care Team Providers Care Straddle Bug Name Role Phone Ubaldo Spring MD Primary Care Provider [phone] Romero Licea MD Primary Care Provi clifton Shana Mike NP Unavailable [phone] Julius Canseco MD Unavailable [phone] Encounter Details Date Type Department Care Team (Late st Contact Info) Description 09/24/2017 Procedure Pass [facility] Endoscopy [address] [place] [address] Social History Tobacco Use Types [...] on filedocumented in this encounter Care Teams Straddle Bug Relationship Specialty Start Date End Date Ubaldo Spring MD PCP - General Family Medicine 09/20/17 08/02/21 Romero Licea MD [address] [place] [address] PCP - General Family Medicine 08/03/21 Shana Mike NP [address] [place], [place] [id number] Nurse Practitioner Physical Medicine and Rehabilitation 11/15/22 Julius Canseco MD [address] [place], [place] [address] Consulting Physician Physical Medicine and Rehabilitation 04/11/23 documented as of this encounter
--- OUTSIDE RECORDS SUMMARY | 2025-05-08 16:27 | XMS_ITS | Encounter Summary ---
Author Organization [facility] Address [address] [place] [address] Care Team Providers Care Reimbursement Specialist Name Role Phone Romero Licea MD Primary Care Provider Shanae Zarate MD Unavailable Princess Monroy BIODIESEL OPERATIONS MANAGER Unavailable [phone] Luh NashD Unavailable Cathy Tee RN Unavailable Romero Licea MD Unavailable Renee Mora DO Unavailable Renee Mora DO Primary Care Provider Reason for Visit * Reason Comments Med Refill Encounter Details Date Type Department Care Team (Late st Contact Info) Description 06/27/2019 Refill [facility] [address] [place], [place] [address] Nirmal Huizar MD [address] [place] [address] Social History Tobacco Use Types Packs/Day Years [...] on filedocumented in this encounter Care Teams Reimbursement Specialist Relationship Specialty Start Date End Date Romero Licea MD PCP - General Family Medicine 06/27/19 05/27/24 Romero Licea MD [address] [place] [address] PCP - Medicare Advantage - Attributed PCP 10/09/22 07/10/23 Renee Mora DO [address] [place] [address] PCP - Medicare Advantage - Attributed PCP 07/11/23 06/09/24 Renee Mora DO [address] [place] [address] PCP - General Family Medicine 06/04/24 Shanae Zarate MD [address] [place] [address] Consulting Physician Cardiology 10/13/20 Princess Monroy LCSW [address] [place] [address] Filter Washer Casting And Curing Operator 10/31/20 05/27/24 Luh Nash, HunterD [address] [place] [address] Clinical Pharmacist Pharmacy 11/24/20 03/04/22 Cathy Tee, KAMERON [address] [place] [address] [place] [address] Computer Tape Librarian ( Nurse) Care Management 08/17/21 documented as of this encounter
--- OUTSIDE RECORDS SUMMARY | 2025-05-08 16:27 | XMS_ITS | Encounter Summary ---
Author Organization [facility] Address [address] [place] [address] Care Team Providers Care Telecom Assistant Name Role Phone Romero Licea MD Primary Care Provi clifton Shana Mike SUSTAINABILITY PROJECT COORDINATOR Unavailable [phone] Julius Canseco MD Unavailable Encounter Details Date Type Department Care Team (Late st Contact Info) Description 04/25/2023 Procedure Pass [facility] Surgery [address] [place] [address] Social History Tobacco Use Types [...] on filedocumented in this encounter Care Teams Telecom Assistant Relationship Specialty Start Date End Date Romero Licea MD [address] [place], [place] [id number] PCP - General Family Medicine 08/03/21 Shana Mike NP [address] [place], [place] [id number] Nurse Practitioner Physical Medicine and Rehabilitation 11/15/22 Julius Canseco MD [address] [place] [address] Consulting Physician Physical Medicine and Rehabilitation 04/11/23 documented as of this encounter
--- OUTSIDE RECORDS SUMMARY | 2025-05-08 16:27 | XMS_ITS | Encounter Summary ---
Author Organization [facility] Address [address] [place] [address] Care Team Providers Care Bench Hand Name Role Phone Romero Licea MD Primary Care Provi clifton Shana Mike ELECTRONIC COMPONENT PROCESSOR Unavailable [phone] Julius Canseco MD Unavailable Encounter Details Date Type Department Care Team (Late st Contact Info) Description 01/21/2022 Procedure Pass [facility] Surgery [address] [place] [address] Social History Tobacco Use Types Packs/Day Years Used Date Smoking Tobacco: Former Cigarettes 2 10 Smokeless Tobacco: Never Alcohol Use Standard Drinks/Week Comments No 0 (1 standard drink = 0.6 oz pur e alcohol) Sex and Gender Information Value Date Recorded Sex Assigned at Not on file Legal Sex Male 10:38 AM [facility] Gender Identity Not on file Sexual Orientation [...] on filedocumented in this encounter Care Teams Bench Hand Relationship Specialty Start Date End Date Romero Licea MD [address] [place] [address] PCP - General Family Medicine 08/03/21 Shana Mike NP [address] [place], [place] [id number] Nurse Practitioner Physical Medicine and Rehabilitation 11/15/22 Julius Canseco MD [address] [place] [address] Consulting Physician Physical Medicine and Rehabilitation 04/11/23 documented as of this encounter
--- OUTSIDE RECORDS SUMMARY | 2025-05-08 16:27 | XMS_ITS | Clinical Summary ---
Author Organization [facility] Address [address] [place] [address] Care Team Providers Care Data Integration Developer Name Role Phone Romero Licea MD Primary Care Provi clifton Shana Mike NP Unavailable [phone] Julius Canseco MD Unavailable Allergies No known [...] (10/06/2021): Added automatically from request for surgery [id number] Lumbar radiculopathy 10/05/2021 Overview (10/05/2021): Added automatically from request for surgery [id number] Fever 09/23/2017 Asthma 09/21/2017 HIV (human immunodeficiency virus infection) COPD (chronic obstructive pulmonary disease) Hypertension 09/21/2017 Polycythemia 09/21/2017 Hyponatremia 09/21/2017 Dehydration 09/20/[address] scan, stomach 09/20/2017 Overview (09/23/2017): Added automatically from request for surgery [id number] Social History Tobacco Use Types Packs/Day Years [...] Comments Blood Pressure 128/72 04/11/2023 5:00 PM [facility] Pulse 66 04/11/2023 5:00 PM [facility] Temperature 36.6 C (97.8 F) 04/11/2023 2:43 PM [facility] Respiratory Rate 16 04/11/2023 5:00 PM [facility] Oxygen Saturation 99% 04/11/2023 5:00 PM [facility] Inhaled Oxygen Concentration - - Weight [...] COLONOSCOPY (08/03/2021 1:34 PM MST) us Franky Glil MD GI PROCEDURE ORDERABLES Fin al Result * CT chest abdomen pelvis with contrast (09/21/2017 8:44 PM [facility]) Anatomical Region Laterality Modality Abdomen, Chest, Pelvis, Hip Comp uted Tomography 09/21/2017 8:42 PM [facility] Narrative 09/21/2017 8:[address] [facility] [address] THORAX, ABDOMEN AND PELVIS WITH [...] * (ABNORMAL) Hemoglobin A1c (09/21/2017 4:47 AM [facility]) Hemoglobin A1C 8.5(H) <=5.7 % 09/21/2017 9:55 AM [facility] EAG 197.3 mg/dL 09/21/2017 9:55 AM [facility] Blood BLOOD SPECIMEN / Unknown Venipuncture / Unknown 09/21/2017 4:47 AM [facility] 09/21/2017 4:57 AM MST Narrative [facility] - 09/21/2017 9:55 AM [facility] The [place] [employer] (ADA) guidelines for interpreting Hemoglobin A1C are as follows: Non-Diabetic patient: <5.7% Increased risk for future Diabetes: 5.7-6.4% ADA diagnostic criteria for Diabetes: >6.4% Values for patients with Diabetes: Result <7.0%: Meets ADA's recommendation goal for therapy. Result 7.0-8.0%: Exceeds ADA's recommended goal. Result >8.0%: ADA recommends reevaluation of therapy. us Dre Perez MD LAB BLOOD ORDERABLES Bess chavez Result [facility] [id number] [id number], [facility] [phone] from Last 3 Months or Most Recently Relevant to Health Maintenance Insurance [facility] MEDICARE ADVANTAGE [facility] MEDICARE ADVANTAGE [employer] MEDICARE ADVANTAGE CIGNA MEDICARE ADVANTAGE Advance Directives For more information, please contact: [phone] * Full Code (Latest Code Status on File) Date Activated Date Inactivated Comments 09/20/2017 8:25 PM 09/26/2017 4:14 PM Care Teams Data Integration Developer Relationship Specialty Start Date End Date Romero Licea MD [address] [place] [address] PCP - General Family Medicine 08/03/21 Shana Mike NP [address] [place] [address] Nurse Practitioner Physical Medicine and Rehabilitation 11/15/22 Julius Canseco MD [address] [place] [address] Consulting Physician Physical Medicine and Rehabilitation 04/11/23
--- OUTSIDE RECORDS SUMMARY | 2025-05-08 16:27 | XMS_ITS | Encounter Summary ---
Author Organization [facility] Address [address] [place] [address] Care Team Providers Care Supervisor Customer Records Division Name Role Phone Romero Licea MD Primary Care Provi clifton Shana Mike IT HELP DESK MANAGER Unavailable [phone] Julius Canseco MD Unavailable Encounter Details Date Type Department Care Team (Late st Contact Info) Description 10/08/2021 Procedure Pass [facility] Surgery [address] [place] [address] Social History Tobacco Use Types Packs/Day Years Used Date Smoking Tobacco: Former Cigarettes 2 10 Smokeless Tobacco: Never Alcohol Use Standard Drinks/Week Comments No 0 (1 standard drink = 0.6 oz pur e alcohol) Sex and Gender Information Value Date Recorded Sex Assigned at Not on file Legal Sex Male 10:38 AM [facility] Gender Identity [...] filedocumented in this encounter Care Teams Supervisor Customer Records Division Relationship Specialty Start Date End Date Romero Licea MD [address] [place] [address] PCP - General Family Medicine 08/03/21 Shana Mike NP [address] [place] [address] Nurse Practitioner Physical Medicine and Rehabilitation 11/15/22 Julius Canseco MD [address] [place], [place] [address] Consulting Physician Physical Medicine and Rehabilitation 04/11/23 documented as of this encounter
--- OUTSIDE RECORDS SUMMARY | 2025-05-08 16:27 | XMS_ITS | Encounter Summary ---
Author Organization [facility] Address [address] [place] [address] Care Team Providers Care Cabin Outfitter Name Role Phone Romero Licea MD Primary Care Provi clifton Shana Mike SUPERVISOR CONTACT AND SERVICE CLERKS Unavailable [phone] Julius Canseco MD Unavailable Encounter Details Date Type Department Care Team (Late st Contact Info) Description 04/11/2023 Procedure Pass [facility] Surgery [address] [place] [address] Social History Tobacco Use Types [...] on filedocumented in this encounter Care Teams Cabin Outfitter Relationship Specialty Start Date End Date Romero Licea MD [address] [place], [place] [phone] PCP - General Family Medicine 08/03/21 Shana Mike NP [address] [place], [place] [id number] Nurse Practitioner Physical Medicine and Rehabilitation 11/15/22 Julius Canseco MD [address] [place] [address] Consulting Physician Physical Medicine and Rehabilitation 04/11/23 documented as of this encounter
== END 2025-05-08 13:43 | disposition home or self-care (01) ==
LOC: HO.HCS 12:59
PROVIDERS: PCP Physician Assistant; Visit Provider Internal Medicine
DX: I25.10 Atherosclerotic heart disease of native coronary artery without angina pectoris (principal); I48.0 Paroxysmal atrial fibrillation; Z01.810 Encounter for preprocedural cardiovascular examination
CPT/HCPCS: 99214; G2211

== ENCOUNTER → 2025-05-08 12:57 | Outpatient (BNVA) | payer MEDICARE, SELFPAY | PROVIDERS: PCP Physician Assistant; Visit Provider Internal Medicine | DX: Z01.810 Encounter for preprocedural cardiovascular examination (principal); I25.10 Atherosclerotic heart disease of native coronary artery without angina pectoris; I48.0 Paroxysmal atrial fibrillation | CPT/HCPCS: 99212 ==

== ENCOUNTER 2025-05-09 13:36 | Outpatient (REF) | payer MEDICARE, SELFPAY ==
--- NOTE | ~2025-05-09 | MR_ITS ---
EXAMINATION: MR LUMBAR SPINE WITHOUT CONTRAST CLINICAL INFORMATION: M 54.50. Low back pain, unspecified. COMPARISON: Correlated to CT dated May 03, 2025. TECHNIQUE: MRI of the lumbar spine was obtained using routine sequences without contrast. FINDINGS: Last rib-bearing vertebra labeled T12. Bone marrow STIR signal in the inferior endplate of T12, superior and inferior endplates of L1, L2 and L3. Multilevel Modic type II endplate changes from L1 to L4. There is a dextroconvex rotoscoliosis apex at L2-3. There is a 28-30% volume loss of the vertebral bodies from L1 to L4. Multilevel disc desiccation. Grade 1 retrolisthesis at L2-3 and L3-4 levels. Conus medullaris ends at intervertebral disc T12-L1 level with normal signal. T12-L1: Broad-based disc bulging. Facet joint hypertrophy. Reduced AP diameter of the thecal sac. Right neuroforamina and stenosis encroaching the exiting nerve root. L1-2: Broad-based disc bulging. Facet joint and ligamentum flavum hypertrophy. Central spinal canal and bilateral neuroforamina stenosis encroaching the neural elements. L2-3: Broad-based disc bulging. Facet joint hypertrophy. Central spinal canal and bilateral neuroforamina stenosis encroaching the neural elements. L3-4: Broad-based disc bulging. Facet joint hypertrophy. Central spinal canal and bilateral neuroforamina stenosis, left greater than the right likely compressing the exiting nerve roots. L4-5: Broad-based disc bulging. Facet joint and ligamentum flavum hypertrophy. CSF effacement of the thecal sac. Central spinal canal stenosis compressing the neural elements of the thecal sac. There is bilateral neuroforamina stenosis encroaching the L4 exiting nerve roots. L5-S1: Broad-based disc bulging. Facet joint hypertrophy. No gross central spinal canal stenosis. Bilateral neuroforamina stenosis encroaching the L5 exiting nerve roots. No prevertebral compartment hematoma, mass or fluid collection. Bilateral multifocal different sizes cystic lesions in the kidneys. Fatty atrophy of the left psoas muscle likely denervation. MR/MR lumbar spine wo con IMPRESSION: Multilevel spondylosis and dextroconvex rotoscoliosis resulting in multilevel central spinal canal and bilateral neuroforamina stenosis severe at L4-5 likely compressing the neural elements. Electronically signed by: Jerel Garcia MD 05/09/2025 04:02 PM EDT RP
--- NOTE | ~2025-05-09 | XR_ITS ---
EXAMINATION: XR CHEST 2 VIEWS HISTORY: J44.9 - Chronic obstructive pulmonary disease, unspecified COMPARISON: There are no prior studies available for comparison. FINDINGS: PA and lateral views of the chest are submitted. A BB is seen in the left upper lobe. There is subsegmental atelectasis at the left lung base. The lungs are otherwise clear. There is no pleural effusion, pneumothorax, or pulmonary vascular congestion. The heart is normal in size. There is degenerative disc disease of the spine. XR/XR chest 2V IMPRESSION: Right basilar subsegmental atelectasis. Electronically signed by: Kvng Fonseca MD 05/09/2025 02:08 PM EDT
--- OUTSIDE RECORDS SUMMARY | 2025-05-09 16:36 | XMS_ITS | Clinical Summary ---
Author Organization [facility] Address [address] [place] [address] Care Team Providers Care Dispatcher Radio Name Role Phone Shanae Zarate MD Unavailable Renee Mora DO Primary Care Provider [phone] Allergies Active Allergy Reactions Criticality Noted Date [...] - submitted cover my meds 06/16/22 (Toussaint: [email or web address]) - approved 06/02/22-06/16/23 Request #[id number] sd Problem Noted Date Diagnosed Date Type 2 diabetes mellitus wit h diabetic peripheral angiopathy without gangrene, with long-term current use of insulin 07/01/2023 Type 2 diabetes mellitus with other specified co mplication 07/01/2023 Overview (07/01/2023): With mixed hyperlipidemia Assessment & Plan (07/01/2023 1:51 PM [facility]): Diabetes is controlled. A1c up because he was off trulicity for a while but been back on it. Stable. Continue present management. Age-related osteoporosis wit hout current pathological fracture 07/26/2022 Overview (07/26/2022): DXA 07/01 right hip -3.6, left hip -3.5 Assessment & Plan (07/26/2022 10:48 AM [facility]): Recent pelvic fracture. Counseling about osteopenia/osteoporosis. [...] Assessment & Plan (07/26/2022 10:55 AM [facility]): Patient requested refill of his pain [...] is for him to consult with a research support specialist or even update his spine imaging. I will defer this to his pain management team. Bilateral carpal tunnel syndrome 07/26/2022 Overview (07/26/2022): EMG/NCV 07/01 Assessment & Plan (07/26/2022 10:56 AM [facility]): I will request his records from [...] Assessment & Plan (10/13/2020 11:44 AM [facility]): Condition is newly identified. Detailed treatment [...] agreement to get in touch with our [facility] team to help him get started on care, assist him to transition to terminal operator community and for healthy behaviors to [...] (03/11/2021 1:37 PM MST): Follow-up with his drug department worker. Abdominal aortic atherosclerosis 06/29/2019 Overview (06/29/2019): CT [...] to stent. Advised to follow-up with his scaffold worker. Benign essential HTN 06/29/2019 Assessment & Plan [...] comorbidities Paroxysmal atrial fibrillation 06/29/2019 Overview (07/01/2023): [id number] Score 3 Assessment & Plan (07/01/2023 1:50 [...] (10/13/2020): Added automatically from request for surgery [id number] Resolved Problems Problem Noted Date Diagnosed Date [...] Never 07/21/2022 How often do you attend [facility] or [facility] services? Patient declined 07/21/2022 Do you belong [...] Date Recorded Depression Risk (PHQ2) Score 0 [facility] - Occupational Stress Questionnaire Answer Date Recorded [...] file Legal Sex Male 1:57 AM [facility] Gender Identity Not on [...] Mass Index 27.67 07/21/2022 1:37 PM [facility] Plan of Treatment Health Maintenance Due [...] 1, STOOL Routine 10/15/2020 12:00 AM [facility] Screening for colorectal cancer HEPATITIS C VIRUS (HCV) ANTIBODY WITH REFLEX TO QUALITATIVE ISABEL Routine 07/26/2018 from Last 3 Months or Most Recently Relevant to Health Maintenance Results * Colonoscopy (08/03/2021) [facility] Colonoscopy colon polyps Historical Provider HEALTH MAINTENANCE Final Result * Occult blood x 1, stool (10/15/2020 12:00 AM [facility]) [facility] Occult Bld Immunochem Negative Negative BMG Controls Comment: Assay sensitivity is >95% when 50 ug Hb/g of stool is present. Clinical sensitivity for colorectal cancer is 87%, and for large adenomas is 47%, based on an evaluation of 240 individuals in a premarket commercial data set used for FDA approval. Overall, clinical specificity is 97.7%. Stool (Per Rectum) 10/15/2020 10/22/2020 7:18 PM [facility] Narrative [facility] - 10/15/2020 12:00 AM [facility] Time/Date of collection taken from specimen. Copy being sent to: Results Only Account [employer] Romero Lovett MD LAB BODY FLUIDS AND STOOLS OR DERABLES Edited Result - Final [facility] [address] [place] [address] * Hepatitis C Virus (HCV) Antibody With Reflex to Qualitative ISABEL (07/26/2018) [facility] HCV Ab 0.08 <=0.79 Index [facility] Hepatitis C Ab Nonreactive Nonreactive [facility] Comment: Performance characteristics of [...] LAB BLOOD ORDERABLES Final Re sult [facility] Anywhere [address] from Last 3 Months or Most Recently Relevant to Health Maintenance Care Teams Dispatcher Radio Relationship Specialty Start Date End Date Renee Mora DO [address] [place] [address] PCP - General Family Medicine 06/04/24 Shanae Zarate MD [address] [place] [address] Consulting Physician Cardiology 10/13/20
--- OUTSIDE RECORDS SUMMARY | 2025-05-09 16:36 | XMS_ITS | Encounter Summary ---
Author Organization [facility] Address [address] [place] [address] Care Team Providers Care Tree Climber Name Role Phone Romero Licea MD Primary Care Provi clifton Shana Mike RESTAURANT KITCHEN AND SERVICE MANAGER Unavailable [phone] Julius Canseco MD Unavailable Encounter Details Date Type Department Care Team (Late st Contact Info) Description 04/25/2023 Procedure Pass [facility] [address] [place] [place] [address] Social History Tobacco Use Types Packs/Day Years Used Date Smoking Tobacco: Former Cigarettes 2 10 Smokeless Tobacco: Never Alcohol Use Standard Drinks/Week Comments No 0 (1 standard drink = 0.6 oz pur e alcohol) Sex and Gender Information Value Date Recorded Sex Assigned at Not on file Legal Sex Male 10:38 AM [facility] Gender Identity Not on file Sexual Orientation Not on file documented as of this encounter Plan of Treatment Not on file documented as of this encounter Visit Diagnoses Not on filedocumented in this encounter Care Teams Tree Climber Relationship Specialty Start Date End Date Romero Licea MD [address] [place], [place] [id number] PCP - General Family Medicine 08/03/21 Shana Mike NP [address] [place], [place] [id number] Nurse Practitioner Physical Medicine and Rehabilitation 11/15/22 Julius Canseco MD [address] [place] [address] Consulting Physician Physical Medicine and Rehabilitation 04/11/23 documented as of this encounter
--- OUTSIDE RECORDS SUMMARY | 2025-05-09 16:36 | XMS_ITS | Encounter Summary ---
Author Organization [facility] Address [address] [place] [address] Care Team Providers Care Kelp Gatherer Name Role Phone Romero Licea MD Primary Care Provider Shanae Zarate MD Unavailable Princess Monroy CONTRACTOR FIELD HAULING Unavailable [phone] Luh NashD Unavailable Cathy Tee RN Unavailable Romero Licea MD Unavailable Renee Mora DO Unavailable Renee Mora DO Primary Care Provider Reason for Visit * Reason Comments Med Refill Encounter Details Date Type Department Care Team (Late st Contact Info) Description 05/04/2019 Refill [facility] [address] [place], [place] [address] Nirmal Huizar MD [address] [place] [address] Social History Tobacco Use Types Packs/Day Years [...] on filedocumented in this encounter Care Teams Kelp Gatherer Relationship Specialty Start Date End Date Rmoero Licea MD PCP - General Family Medicine 06/27/19 05/27/24 Romero Licea MD [address] [place] [address] PCP - Medicare Advantage - Attributed PCP 10/09/22 07/10/23 Renee Mora DO [address] [place] [address] PCP - Medicare Advantage - Attributed PCP 07/11/23 06/09/24 Renee Mora DO [address] [place] [address] PCP - General Family Medicine 06/04/24 Shanae Zarate MD [address] [place] [address] Consulting Physician Cardiology 10/13/20 Princess Monroy LCSW [address] [place] [address] Catalyst Unit Operator International Trade Analyst 10/31/20 05/27/24 Luh Nash, HunterD [address] [address] [place] [address] Clinical Pharmacist Pharmacy 11/24/20 03/04/22 Cathy Tee, KAMERON [address] [place] [address] [facility] [place] [address] Music Minister ( Nurse) Care Management 08/17/21 documented as of this encounter
--- OUTSIDE RECORDS SUMMARY | 2025-05-09 16:36 | XMS_ITS | Encounter Summary ---
Author Organization [facility] Address [address] [place] [address] Care Team Providers Care Rn Staffing Name Role Phone Shanae Zarate MD Unavailable Renee Mora DO Primary Care Provider [phone] Reason for Visit * Reason Comments Med Refill Encounter Details Date Type Department Care Team (Late st Contact Info) Description 07/15/[address] [facility] [address] [facility] [address] [place], [place] [id number] Gay Rosario MD [address] [facility] [address] [place], [place] [id number] Diabetic polyneuropathy associated with type 2 diabetes mellitus ([facility]/HCC) Social History Tobacco Use Types [...] often do you attend chur ch or orthodoxy services? Patient declined 07/21/2022 Do you belong to any clubs o r organizations such as samaritan groups, unions, fraternal or athletic groups, or [...] Date Recorded Depression Risk (PHQ2) Score [facility] - Occupational Stress Questionnaire Answer Date Recorded [...] documented as of this encounter Care Teams Rn Staffing Relationship Specialty Start Date End Date Renee Mora DO [address] [place] [address] PCP - General Family Medicine 06/04/24 Shanae Zarate MD [address] [place] [address] Consulting Physician Cardiology 10/13/20 documented as of this encounter
--- OUTSIDE RECORDS SUMMARY | 2025-05-09 16:36 | XMS_ITS | Clinical Summary ---
Author Organization [facility] Address [address] [place] [address] Care Team Providers Care Production Solderer Name Role Phone Romero Licea MD Primary Care Provi clifton Shana Mike NP Unavailable [phone] Julius Canseco MD Unavailable [phone] Allergies No known active allergies Medications metFORMIN [...] (10/06/2021): Added automatically from request for surgery [id number] Lumbar radiculopathy 10/05/2021 Overview (10/05/2021): Added automatically from request for surgery [id number] Fever 09/23/2017 Asthma 09/21/2017 HIV (human immunodeficiency virus infection) COPD (chronic obstructive pulmonary disease) Hypertension 09/21/2017 Polycythemia 09/21/2017 Hyponatremia 09/21/2017 Dehydration 09/20/[address] scan, stomach 09/20/2017 Overview (09/23/2017): Added automatically from request for surgery [id number] Social History Tobacco Use Types Packs/Day Years [...] Comments Blood Pressure 128/72 04/11/2023 5:00 PM [facility] Pulse 66 04/11/2023 5:00 PM [facility] Temperature 36.6 C (97.8 F) 04/11/2023 2:43 PM [facility] Respiratory Rate 16 04/11/2023 5:00 PM [facility] Oxygen Saturation 99% 04/11/2023 5:00 PM [facility] Inhaled Oxygen Concentration - - [...] abdomen pelvis with contrast (09/21/2017 8:44 PM [facility]) Anatomical Region Laterality Modality Abdomen, Chest, Pelvis, Hip Comp uted Tomography 09/21/2017 8:42 PM [facility] Narrative 09/21/2017 8:55 PM [facility] CT THORAX, ABDOMEN AND PELVIS [...] * (ABNORMAL) Hemoglobin A1c (09/21/2017 4:47 AM [facility]) Hemoglobin A1C 8.5(H) <=5.7 % 09/21/2017 9:55 AM [facility] EAG 197.3 mg/dL 09/21/2017 9:55 AM [facility] Blood BLOOD SPECIMEN / Unknown Venipuncture / Unknown 09/21/2017 4:47 AM [facility] 09/21/2017 4:57 AM [facility] Narrative [facility] - 09/21/2017 9:55 AM [facility] The [place] Diabetes Association (ADA) guidelines for interpreting Hemoglobin A1C are as follows: Non-Diabetic patient: <5.7% Increased risk for future Diabetes: 5.7-6.4% ADA diagnostic criteria for Diabetes: >6.4% Values for patients with Diabetes: Result <7.0%: Meets ADA's recommendation goal for therapy. Result 7.0-8.0%: Exceeds ADA's recommended goal. Result >8.0%: ADA recommends reevaluation of therapy. us Dre Perez MD LAB BLOOD ORDERABLES Bess chavez Result [facility] [id number] [id number], [facility] [phone] from Last 3 Months or Most Recently Relevant to Health Maintenance Insurance [facility] MEDICARE ADVANTAGE [facility] MEDICARE ADVANTAGE [employer] MEDICARE ADVANTAGE CIGNA MEDICARE ADVANTAGE Advance Directives For more information, please contact: [phone] * Full Code (Latest Code Status on File) Date Activated Date Inactivated Comments 09/20/2017 8:25 PM 09/26/2017 4:14 PM Care Teams Production Solderer Relationship Specialty Start Date End Date Romero Licea MD [address] [place] [address] PCP - General Family Medicine 08/03/21 Shana Mike NP [address] [place] [address] Nurse Practitioner Physical Medicine and Rehabilitation 11/15/22 Julius Canseco MD [address] [place] [address] Consulting Physician Physical Medicine and Rehabilitation 04/11/23
--- OUTSIDE RECORDS SUMMARY | 2025-05-09 16:36 | XMS_ITS | Encounter Summary ---
Author Organization [facility] Address [address] [place] [address] Care Team Providers Care Rand Butting Machine Operator Name Role Phone Shanae Zarate MD Unavailable Renee Mora DO Primary Care Provider [phone] Reason for Visit * Reason Comments Med Refill Encounter Details Date Type Department Care Team (Late st Contact Info) Description 06/23/2024 Refill [facility] [address] [place] [address] [place] [address] [place] [address] [address] [place] [address] Diabetic polyneuropathy associated with type 2 diabetes mellitus ([facility]/HCC) Social History Tobacco Use Types Packs/Day Years [...] How often do you attend chur or advent services? Patient declined 07/21/2022 Do you belong to any clubs o r organizations such as caodaism groups, unions, fraternal or athletic groups, or [...] Date Recorded Depression Risk (PHQ2) Score 0 [facility] - Occupational Stress Questionnaire Answer [...] place to sleep or slept in a mcfp (including now)? No 07/21/2022 Sex and Gender [...] documented as of this encounter Care Teams Rand Butting Machine Operator Relationship Specialty Start Date End Date Renee Mora DO [address] [place], [place] [phone] PCP - General Family Medicine 06/04/24 Shanae Zarate MD [address] [place] [address] Consulting Physician Cardiology 10/13/20 documented as of this encounter
--- OUTSIDE RECORDS SUMMARY | 2025-05-09 16:36 | XMS_ITS | Encounter Summary ---
Author Organization [facility] Address [address] [place] [address] Care Team Providers Care General Teller Name Role Phone Romero Licea MD Primary Care Provi clifton Shana Mike CERTIFIED MASTER SAFE TECHNICIAN Unavailable Julius Canseco MD Unavailable Encounter Details Date Type Department Care Team (Late st Contact Info) Description 02/04/2022 Procedure Pass [facility] [address] [place] [address] Social History Tobacco Use Types Packs/Day Years Used Date Smoking Tobacco: Former Cigarettes 2 10 Smokeless Tobacco: Never Alcohol Use Standard Drinks/Week Comments No 0 (1 standard drink = 0.6 oz pur e alcohol) Sex and Gender Information Value Date Recorded Sex Assigned at Not on file Legal Sex Male 10:38 AM [facility] Gender Identity Not on [...] on filedocumented in this encounter Care Teams General Teller Relationship Specialty Start Date End Date Romero Licea MD [address] [place] [address] PCP - General Family Medicine 08/03/21 Shana Mike NP [address] [place], [place] [id number] Nurse Practitioner Physical Medicine and Rehabilitation 11/15/22 Julius Canseco MD [address] [place] [address] Consulting Physician Physical Medicine and Rehabilitation 04/11/23 documented as of this encounter
--- OUTSIDE RECORDS SUMMARY | 2025-05-09 16:36 | XMS_ITS | Encounter Summary ---
Author Organization [facility] Address [address] [place] [address] Care Team Providers Care Stripping Machine Operator Name Role Phone Romero Licea MD Primary Care Provider Shanae Zarate MD Unavailable Princess Monroy HUMAN RESOURCES BENEFITS MANAGER Unavailable [phone] Luh NashD Unavailable Cathy Tee RN Unavailable Romero Licea MD Unavailable Renee Mora DO Unavailable Renee Mora DO Primary Care Provider Reason for Visit * Reason Comments Med Refill Encounter Details Date Type Department Care Team (Late st Contact Info) Description 05/25/2019 Refill [facility] [address] [place], [place] [address] Nirmal Huizar MD [address] [place] [address] Social History Tobacco Use Types Packs/Day Years Used Date Smoking Tobacco: Never Assessed Sex and Gender Information Value Date Recorded Sex Assigned at Not on file Legal Sex Male 1:57 AM [facility] Gender Identity Not on file Sexual Orientation Not on file documented as of this encounter Plan of Treatment Not on file documented as of this encounter Visit Diagnoses Not on filedocumented in this encounter Care Teams Stripping Machine Operator Relationship Specialty Start Date End Date Romero Licea MD PCP - General Family Medicine 06/27/19 05/27/24 Romero Licea MD [address] [place] [address] PCP - Medicare Advantage - Attributed PCP 10/09/22 07/10/23 Renee Mora DO [address] [place] [address] PCP - Medicare Advantage - Attributed PCP 07/11/23 06/09/24 Renee Mora DO [address] [place] [address] PCP - General Family Medicine 06/04/24 Shanae Zarate MD [address] [place] [address] Consulting Physician Cardiology 10/13/20 Princess Monroy LCSW [address] [place] [address] Admissions Clinician Benefits Coordinator 10/31/20 05/27/24 Luh Nash, HunterD [address] [place] [address] Clinical Pharmacist Pharmacy 11/24/20 03/04/22 Cathy Tee, KAMERON [address] [place] [address] [place] [address] Lpc ( Nurse) Care Management 08/17/21 documented as of this encounter
--- OUTSIDE RECORDS SUMMARY | 2025-05-09 16:36 | XMS_ITS | Encounter Summary ---
Author Organization [facility] Address [address] [place] [address] Care Team Providers Care Mat Making Machine Tender Name Role Phone Romero Lciea MD Primary Care Provi clifton Shana Mike CHURN OPERATOR Unavailable [phone] Julius Canseco MD Unavailable Encounter Details Date Type Department Care Team (Late st Contact Info) Description 10/08/2021 Procedure Pass [facility] [address] [place] [address] Social History Tobacco Use Types Packs/Day Years Used Date Smoking Tobacco: Former Cigarettes 2 10 Smokeless Tobacco: Never Alcohol Use Standard Drinks/Week Comments No 0 (1 standard drink = 0.6 oz pur e alcohol) Sex and Gender Information Value Date Recorded Sex Assigned at Not on file Legal Sex Male 10:38 AM [facility] Gender Identity Not on file Sexual [...] on filedocumented in this encounter Care Teams Mat Making Machine Tender Relationship Specialty Start Date End Date Romero Licea MD [address] [place] [address] PCP - General Family Medicine 08/03/21 Shana Mike NP [address] [place] [address] Nurse Practitioner Physical Medicine and Rehabilitation 11/15/22 Julius Canseco MD [address] [place], [place] [address] Consulting Physician Physical Medicine and Rehabilitation 04/11/23 documented as of this encounter
--- OUTSIDE RECORDS SUMMARY | 2025-05-09 16:36 | XMS_ITS | Encounter Summary ---
Author Organization [facility] Address [address] [place] [address] Care Team Providers Care Cable Installer Repairer Helper Name Role Phone Romero Licea MD Primary Care Provi clifton Shana Mike MILLING MACHINE OPERATOR Unavailable [phone] Julius Canseco MD Unavailable Encounter Details Date Type Department Care Team (Late st Contact Info) Description 08/03/2021 Procedure Pass [facility] Endoscopy [address] [place] [address] Social History Tobacco Use Types [...] on filedocumented in this encounter Care Teams Cable Installer Repairer Helper Relationship Specialty Start Date End Date Romero Licea MD [address] [place] [address] PCP - General Family Medicine 08/03/21 Shana Mike NP [address] [place] [address] Nurse Practitioner Physical Medicine and Rehabilitation 11/15/22 Julius Canseco MD [address] [place], [place] [phone] Consulting Physician Physical Medicine and Rehabilitation 04/11/23 documented as of this encounter
--- OUTSIDE RECORDS SUMMARY | 2025-05-09 16:36 | XMS_ITS | Encounter Summary ---
Author Organization [facility] Address [address] [place] [address] Care Team Providers Care Transport Aircrewman Name Role Phone Romero Licea MD Primary Care Provi clifton Shana Mike FISH SEINER Unavailable [phone] Julius Canseco MD Unavailable Encounter Details Date Type Department Care Team (Late st Contact Info) Description 04/11/2023 Procedure Pass [facility] [address] [place] [place] [address] Social History Tobacco Use Types [...] on filedocumented in this encounter Care Teams Transport Aircrewman Relationship Specialty Start Date End Date Romero Licea MD [address] [place], [place] [phone] PCP - General Family Medicine 08/03/21 Shana Mike NP [address] [place], [place] [id number] Nurse Practitioner Physical Medicine and Rehabilitation 11/15/22 Julius Canseco MD [address] [place] [address] Consulting Physician Physical Medicine and Rehabilitation 04/11/23 documented as of this encounter
--- OUTSIDE RECORDS SUMMARY | 2025-05-09 16:36 | XMS_ITS | Encounter Summary ---
Author Organization [facility] Address [address] [place] [address] Care Team Providers Care Ham Stripper Name Role Phone Romero Licea MD Primary Care Provi clifton Shana Mike PIE BAKERY LABORER Unavailable [phone] Julius Canseco MD Unavailable Encounter Details Date Type Department Care Team (Late st Contact Info) Description 10/22/2021 Procedure Pass [facility] [address] [place] [address] Social History Tobacco Use Types Packs/Day Years Used Date Smoking Tobacco: Former Cigarettes 2 10 Smokeless Tobacco: Never Alcohol Use Standard Drinks/Week Comments No 0 (1 standard drink = 0.6 oz pur e alcohol) Sex and Gender Information Value Date Recorded Sex Assigned at Not on file Legal Sex Male 10:38 AM [facility] Gender Identity Not on [...] on filedocumented in this encounter Care Teams Ham Stripper Relationship Specialty Start Date End Date Romero Licea MD [address] [place] [address] PCP - General Family Medicine 08/03/21 Shana Mike NP [address] [place] [address] Nurse Practitioner Physical Medicine and Rehabilitation 11/15/22 Julius Canseco MD [address] [place], [place] [address] Consulting Physician Physical Medicine and Rehabilitation 04/11/23 documented as of this encounter
--- OUTSIDE RECORDS SUMMARY | 2025-05-09 16:36 | XMS_ITS | Encounter Summary ---
Author Organization [facility] Address [address] [place] [address] Care Team Providers Care Shagger Name Role Phone Romero Licea MD Primary Care Provi clifton Shana Mike GLASS MOLD REPAIRER Unavailable [phone] Julius Canseco MD Unavailable Encounter Details Date Type Department Care Team (Late st Contact Info) Description 01/21/2022 [facility] [address] [place] [address] Social History Tobacco Use Types [...] on filedocumented in this encounter Care Teams Shagger Relationship Specialty Start Date End Date Romero Licea MD [address] [place] [address] PCP - General Family Medicine 08/03/21 Shana Mike NP [address] [place], [place] [id number] Nurse Practitioner Physical Medicine and Rehabilitation 11/15/22 Julius Canseco MD [address] [place] [address] Consulting Physician Physical Medicine and Rehabilitation 04/11/23 documented as of this encounter
--- OUTSIDE RECORDS SUMMARY | 2025-05-09 16:36 | XMS_ITS | Encounter Summary ---
Author Organization [facility] Address [address] [place] [address] Care Team Providers Care Principal Consultant Name Role Phone Ubaldo Spring MD Primary Care Provider [phone] Romero Licea MD Primary Care Provi clifton Shana Mike NP Unavailable [phone] Julius Canseco MD Unavailable Encounter Details Date Type Department Care Team (Late st Contact Info) Description 09/23/2017 Procedure Pass [facility]oscopy [address] [place] [address] Social History Tobacco Use Types [...] on filedocumented in this encounter Care Teams Principal Consultant Relationship Specialty Start Date End Date Ubaldo Spring MD PCP - General Family Medicine 09/20/17 08/02/21 Romero Licea MD [address] [place] [address] PCP - General Family Medicine 08/03/21 Shana Mike NP [address] [place], [place] [phone] Nurse Practitioner Physical Medicine and Rehabilitation 11/15/22 Julius Canseco MD [address] [place], [place] [phone] Consulting Physician Physical Medicine and Rehabilitation 04/11/23 documented as of this encounter
--- OUTSIDE RECORDS SUMMARY | 2025-05-09 16:36 | XMS_ITS | Encounter Summary ---
Author Organization [facility] Address [address] [place] [address] Care Team Providers Care Non Ferrous Material Handler Name Role Phone Ubaldo Spring MD Primary Care Provider [phone] Romero Licea MD Primary Care Provi clifton Sahna Mike NP Unavailable [phone] Julius Canseco MD Unavailable [phone] Encounter Details Date Type Department Care Team (Late st Contact Info) Description 09/24/2017 Procedure Pass [facility] [address] [place] [address] Social History Tobacco Use Types Packs/Day Years Used Date Smoking Tobacco: Former Cigarettes 2 10 2 - 2010 Smokeless Tobacco: Never Alcohol Use Standard Drinks/Week Comments No 0 (1 standard drink = 0.6 oz pur e alcohol) Sex and Gender Information Value Date Recorded Sex Assigned at Not on file Legal Sex Male 10:38 AM [facility] Gender Identity Not on file Sexual Orientation Not on file documented as of this encounter Plan of Treatment Not on file documented as of this encounter Visit Diagnoses Not on filedocumented in this encounter Care Teams Non Ferrous Material Handler Relationship Specialty Start Date End Date Ubaldo Spring MD PCP - General Family Medicine 09/20/17 08/02/21 Romero Licea MD [address] [place] [address] PCP - General Family Medicine 08/03/21 Shana Mike NP [address] [place], [place] [phone] Nurse Practitioner Physical Medicine and Rehabilitation 11/15/22 Julius Canseco MD [address] [place], [place] [phone] Consulting Physician Physical Medicine and Rehabilitation 04/11/23 documented as of this encounter
--- OUTSIDE RECORDS SUMMARY | 2025-05-09 16:36 | XMS_ITS | Encounter Summary ---
Author Organization [facility] Address [address] [place] [address] Care Team Providers Care Customer Care Voice Consultant Name Role Phone Romero Licea MD Primary Care Provider Shanae Zarate MD Unavailable Princess Monroy KISS MIXER Unavailable [phone] Luh NashD Unavailable Cathy Tee RN Unavailable Romero Licea MD Unavailable Renee Mora DO Unavailable Renee Mora DO Primary Care Provider Reason for Visit * Reason Comments Med Refill Encounter Details Date Type Department Care Team (Late st Contact Info) Description 06/27/[address] [facility] [address] [place], [place] [address] Nirmal Huizar MD [address] [place] [address] Social History Tobacco Use Types Packs/Day Years Used Date Smoking Tobacco: Never Assessed Sex and Gender Information Value Date Recorded Sex Assigned at Not on file Legal Sex Male 1:[address] [facility] Gender Identity Not on file Sexual Orientation Not on file documented as of this encounter Plan of Treatment Not on file documented as of this encounter Visit Diagnoses Not on filedocumented in this encounter Care Teams Customer Care Voice Consultant Relationship Specialty Start Date End Date Romero Licea MD PCP - General Family Medicine 06/27/19 05/27/24 Romero Licea MD [address] [place] [address] PCP - Medicare Advantage - Attributed PCP 10/09/22 07/10/23 Renee Mora DO [address] [place] [address] PCP - Medicare Advantage - Attributed PCP 07/11/23 06/09/24 Renee Mora DO [address] [place] [address] PCP - General Family Medicine 06/04/24 Shanae Zarate MD [address] [place] [address] Consulting Physician Cardiology 10/13/20 Princess Monroy LCSW [address] [place] [address] Spring Upholsterer Employee Relations Manager 10/31/20 05/27/24 Luh Nash, HunterD [address] [place] [address] Clinical Pharmacist Pharmacy 11/24/20 03/04/22 Cathy Tee, KAMERON [address] [place] [address] [facility] [place] [address] Steamtable Worker ( Nurse) Care Management 08/17/21 documented as of this encounter
== END 2025-05-09 13:37 | disposition home or self-care (01) ==
LOC: HO.MRI 13:36
PROVIDERS: PCP Physician Assistant; Visit Provider Physician Assistant
DX: J44.9 Chronic obstructive pulmonary disease, unspecified (principal); M54.50 Low back pain, unspecified; M79.605 Pain in left leg
CPT/HCPCS: 71046; 72148

== ENCOUNTER → 2025-05-09 13:37 | Outpatient (BNV) | payer MEDICARE, SELFPAY | PROVIDERS: PCP Physician Assistant; Visit Provider Radiology Diagnostic Radiology | DX: J44.9 Chronic obstructive pulmonary disease, unspecified (principal); M54.50 Low back pain, unspecified | CPT/HCPCS: 71046; 72148 ==

== ENCOUNTER 2025-05-16 11:08 | Outpatient (REF) | payer MEDICARE, SELFPAY ==
--- NOTE | ~2025-05-16 | XR_ITS ---
EXAMINATION: XR LUMBOSACRAL SPINE CLINICAL INFORMATION: M54.50 - Low back pain, unspecified COMPARISON: None available. TECHNIQUE: Three views of the lumbosacral spine. FINDINGS: Clips in right upper quadrant likely from prior cholecystectomy. There is 23 degrees levoscoliosis of thoracolumbar junction and 23 degrees dextroscoliosis in the lumbar spine. T12-L1: There is mild disc space narrowing and right lateral listhesis L1-L2: There is moderate disc space narrowing with endplate sclerosis, osteophytes, and left lateral listhesis L2-L3: There is severe disc space narrowing with endplate sclerosis and osteophytes with left lateral listhesis L3-L4: There is moderate disc space narrowing with endplate sclerosis and osteophytes. There is minimal right lateral listhesis L4-L5: There is minimal disc space narrowing and mild right lateral listhesis. L5-S1: Unremarkable. XR/XR lumbar spine 2-3V IMPRESSION: Mild to moderate scoliosis with multilevel degenerative changes. Electronically signed by: Clark Mcnamara MD 05/16/2025 12:08 PM [facility]
--- OUTSIDE RECORDS SUMMARY | 2025-05-16 14:43 | XMS_ITS | Encounter Summary ---
Author Organization [facility] Address [address] [place] [address] Care Team Providers Care Historical Guide Name Role Phone Romero Licea MD Primary Care Provi clifton Shana Mike INFORMATION OFFICER Unavailable [phone] Julius Canseco MD Unavailable Encounter Details Date Type Department Care Team (Late st Contact Info) Description 10/08/2021 Procedure Pass [facility] Surgery [address] [place] [address] Social History Tobacco Use Types [...] on filedocumented in this encounter Care Teams Historical Guide Relationship Specialty Start Date End Date Romero Licea MD [address] [place] [address] PCP - General Family Medicine 08/03/21 Shana Mike NP [address] [place] [address] Nurse Practitioner Physical Medicine and Rehabilitation 11/15/22 Julius Canseco MD [address] [place], [place] [id number] Consulting Physician Physical Medicine and Rehabilitation 04/11/23 documented as of this encounter
--- OUTSIDE RECORDS SUMMARY | 2025-05-16 14:43 | XMS_ITS | Encounter Summary ---
Author Organization [facility] Address [address] [place] [address] Care Team Providers Care Carbon Sequestration Plant Manager Name Role Phone Romero Licea MD Primary Care Provi clifton Shana Mike MARKET DEVELOPER Unavailable [phone] Julius Canseco MD Unavailable Encounter Details Date Type Department Care Team (Late st Contact Info) Description 08/03/[address] [facility] Endoscopy [address] [place] [address] Social History Tobacco Use Types [...] on filedocumented in this encounter Care Teams Carbon Sequestration Plant Manager Relationship Specialty Start Date End Date Romero Licea MD [address] [place] [address] PCP - General Family Medicine 08/03/21 Shana Mike NP [address] [place] [address] Nurse Practitioner Physical Medicine and Rehabilitation 11/15/22 Julius Canseco MD [address] [place], [place] [id number] Consulting Physician Physical Medicine and Rehabilitation 04/11/23 documented as of this encounter
--- OUTSIDE RECORDS SUMMARY | 2025-05-16 14:43 | XMS_ITS | Encounter Summary ---
Author Organization [facility] Address [address] [place] [address] Care Team Providers Care Monumental Stonemason Name Role Phone Ubaldo Spring MD Primary Care Provider + [phone] Romero Licea MD Primary Care Provi clifton Shana Mike NP Unavailable [phone] Julius Canseco MD Unavailable Encounter Details Date Type Department Care Team (Late st Contact Info) Description 09/24/2017 Procedure Pass [facility] Endoscopy [address] [place] [address] Social History Tobacco Use Types [...] on filedocumented in this encounter Care Teams Monumental Stonemason Relationship Specialty Start Date End Date Ubaldo Spring MD PCP - General Family Medicine 09/20/17 08/02/21 Romero Licea MD [address] [place] [address] PCP - General Family Medicine 08/03/21 Shana Mike NP [address] [place], [place] [id number] Nurse Practitioner Physical Medicine and Rehabilitation 11/15/22 Julius Canseco MD [address] [place], [place] [phone] Consulting Physician Physical Medicine and Rehabilitation 04/11/23 documented as of this encounter
--- OUTSIDE RECORDS SUMMARY | 2025-05-16 14:43 | XMS_ITS | Encounter Summary ---
Author Organization [facility] Address [address] [place] [address] Care Team Providers Care Liability Claims Adjuster Name Role Phone Ubaldo Spring MD Primary Care Provider + [phone] Romero Licea MD Primary Care Provi clifton Shana Mike NP Unavailable [phone] Julius Canseco MD Unavailable Encounter Details Date Type Department Care Team (Late st Contact Info) Description 09/23/2017 Procedure Pass [facility] Endoscopy [address] [place] [address] Social History Tobacco Use Types [...] on filedocumented in this encounter Care Teams Liability Claims Adjuster Relationship Specialty Start Date End Date Ubaldo Spring MD PCP - General Family Medicine 09/20/17 08/02/21 Romero Licea MD [address] [place] [address] PCP - General Family Medicine 08/03/21 Shana Mike NP [address] [place], [place] [phone] Nurse Practitioner Physical Medicine and Rehabilitation 11/15/22 Julius Canseco MD [address] [place], [place] [phone] Consulting Physician Physical Medicine and Rehabilitation 04/11/23 documented as of this encounter
--- OUTSIDE RECORDS SUMMARY | 2025-05-16 14:43 | XMS_ITS | Encounter Summary ---
Author Organization [facility] Address [address] [place] [address] Care Team Providers Care Dining Room Manager Name Role Phone Romero Licea MD Primary Care Provi clifton Shana Mike INVESTMENT TRADER Unavailable [phone] Julius Canseco MD Unavailable Encounter Details Date Type Department Care Team (Late st Contact Info) Description 10/22/2021 Procedure Pass [facility] Surgery [address] [place] [address] Social History Tobacco Use Types Packs/Day Years Used Date Smoking Tobacco: Former Cigarettes 2 10 Smokeless Tobacco: Never Alcohol Use Standard Drinks/Week Comments No 0 (1 standard drink = 0.6 oz pur e alcohol) Sex and Gender Information Value Date Recorded Sex Assigned at Not on file Legal Sex Male 10:38 AM [facility] Gender Identity [...] on filedocumented in this encounter Care Teams Dining Room Manager Relationship Specialty Start Date End Date Romero Licea MD [address] [place] [address] PCP - General Family Medicine 08/03/21 Shana Mike NP [address] [place] [address] Nurse Practitioner Physical Medicine and Rehabilitation 11/15/22 Julius Canseco MD [address] [place], [place] [phone] Consulting Physician Physical Medicine and Rehabilitation 04/11/23 documented as of this encounter
--- OUTSIDE RECORDS SUMMARY | 2025-05-16 14:44 | XMS_ITS | Encounter Summary ---
Author Organization [facility] Address [address] [place] [address] Care Team Providers Care Area Loss Prevention Manager Name Role Phone Romero Licea MD Primary Care Provi clifton Shana Mike GENERAL OPERATIONS MANAGER Unavailable [phone] Julius Canseco MD Unavailable Encounter Details Date Type Department Care Team (Late st Contact Info) Description 01/21/2022 Procedure Pass [facility] Surgery [address] [place] [place] [address] Social History Tobacco Use Types Packs/Day Years Used Date Smoking Tobacco: Former Cigarettes 2 10 Smokeless Tobacco: Never Alcohol Use Standard Drinks/Week Comments No 0 (1 standard drink = 0.6 oz pur e alcohol) Sex and Gender Information Value Date Recorded Sex Assigned at Not on file Legal Sex Male 10:38 AM [facility] Gender Identity Not on file Sexual [...] on filedocumented in this encounter Care Teams Area Loss Prevention Manager Relationship Specialty Start Date End Date Romero Licea MD [address] [place] [address] PCP - General Family Medicine 08/03/21 Shana Mike NP [address] [place], [place] [id number] Nurse Practitioner Physical Medicine and Rehabilitation 11/15/22 Julius Canseco MD [address] [place] [address] Consulting Physician Physical Medicine and Rehabilitation 04/11/23 documented as of this encounter
--- OUTSIDE RECORDS SUMMARY | 2025-05-16 14:44 | XMS_ITS | Clinical Summary ---
Author Organization [facility] Address [address] [place] [address] Care Team Providers Care Foot Doctor Name Role Phone Romero Licea MD Primary Care Provi clifton Shana Mike NP Unavailable [phone] Julius Canseco MD Unavailable Allergies No known [...] (10/06/2021): Added automatically from request for surgery [id number] Lumbar radiculopathy 10/05/2021 Overview (10/05/2021): Added automatically from request for surgery [id number] Fever 09/23/2017 Asthma 09/21/2017 HIV (human immunodeficiency virus infection) COPD (chronic obstructive pulmonary disease) Hypertension 09/21/2017 Polycythemia 09/21/2017 Hyponatremia 09/21/2017 Dehydration 09/20/[address] scan, stomach 09/20/2017 Overview (09/23/2017): Added automatically from request for surgery [id number] Social History Tobacco Use Types Packs/Day Years Used Date Smoking Tobacco: Former Cigarettes 2 10 Smokeless Tobacco: Never Tobacco Cessation:Counseling Given: Not Answered Alcohol Use Standard Drinks/Week Comments No 0 (1 standard drink = 0.6 oz pur e alcohol) Sex and Gender Information Value Date Recorded Sex Assigned at Not on file Legal Sex Male 10:38 AM [facility] Gender Identity Not on file Sexual Orientation Not on file Last Filed Vital Signs Vital Sign Reading Time Taken Comments Blood Pressure 128/72 04/11/2023 5:00 PM [facility] Pulse 66 04/11/2023 5:00 PM [facility] Temperature 36.6 C (97.8 F) 04/11/2023 2:43 PM [facility] Respiratory Rate 16 04/11/2023 5:00 PM [facility] Oxygen Saturation 99% 04/11/2023 5:00 PM [facility] Inhaled Oxygen Concentration - - Weight [...] abdomen pelvis with contrast (09/21/2017 8:44 PM [facility]) Anatomical Region Laterality Modality Abdomen, Chest, Pelvis, Hip Comp uted Tomography 09/21/2017 8:42 PM [facility] Narrative 09/21/2017 8:[address] [facility] [address] THORAX, ABDOMEN AND PELVIS WITH [...] * (ABNORMAL) Hemoglobin A1c (09/21/2017 4:47 AM [facility]) Hemoglobin A1C 8.5(H) <=5.7 % 09/21/2017 9:55 AM [facility] 197.3 mg/dL 09/21/2017 9:55 AM [facility] Blood BLOOD SPECIMEN / Unknown Venipuncture / Unknown 09/21/2017 4:47 AM [facility] 09/21/2017 4:57 AM MST Narrative [facility] - 09/21/2017 9:55 AM [facility] [place] Diabetes Association (ADA) guidelines for interpreting Hemoglobin A1C are as follows: Non-Diabetic patient: <5.7% Increased risk for future Diabetes: 5.7-6.4% ADA diagnostic criteria for Diabetes: >6.4% Values for patients with Diabetes: Result <7.0%: Meets ADA's recommendation goal for therapy. Result 7.0-8.0%: Exceeds ADA's recommended goal. Result >8.0%: ADA recommends reevaluation of therapy. us Dre Perez MD LAB BLOOD ORDERABLES Bess chavez Result [facility] [id number] [id number], [facility] [phone] from Last 3 Months or Most Recently Relevant to Health Maintenance Insurance [facility] MEDICARE ADVANTAGE [facility] MEDICARE ADVANTAGE [employer] MEDICARE ADVANTAGE [employer] MEDICARE ADVANTAGE Advance Directives For more information, please contact: [phone] * Full Code (Latest Code Status on File) Date Activated Date Inactivated Comments 09/20/2017 8:25 PM 09/26/2017 4:14 PM Care Teams Foot Doctor Relationship Specialty Start Date End Date Romero Licea MD [address] [place] [address] PCP - General Family Medicine 08/03/21 Shana Mike NP [address] [place] [address] Nurse Practitioner Physical Medicine and Rehabilitation 11/15/22 Julius Canseco MD [address] [place] [address] Consulting Physician Physical Medicine and Rehabilitation 04/11/23
--- OUTSIDE RECORDS SUMMARY | 2025-05-16 14:44 | XMS_ITS | Encounter Summary ---
Author Organization [facility] Address [address] [place] [address] Care Team Providers Care Neurosurgery Spine Physician Name Role Phone Romero Licea MD Primary Care Provi clifton Shana Mike TENNIS BALL COVERER HAND Unavailable Julius Canseco MD Unavailable Encounter Details Date Type Department Care Team (Late st Contact Info) Description 02/04/2022 Procedure Pass [facility] Surgery [address] [place] [place] [address] Social History Tobacco Use Types Packs/Day Years Used Date Smoking Tobacco: Former Cigarettes 2 10 Smokeless Tobacco: Never Alcohol Use Standard Drinks/Week Comments No 0 (1 standard drink = 0.6 oz pur e alcohol) Sex and Gender Information Value Date Recorded Sex Assigned at Not on file Legal Sex Male 10:38 AM [facility] Gender Identity Not on file Sexual [...] on filedocumented in this encounter Care Teams Neurosurgery Spine Physician Relationship Specialty Start Date End Date Romero Licea MD [address] [place] [address] PCP - General Family Medicine 08/03/21 Shana Mike NP [address] [place], [place] [phone] Nurse Practitioner Physical Medicine and Rehabilitation 11/15/22 Julius Canseco MD [address] [place] [address] Consulting Physician Physical Medicine and Rehabilitation 04/11/23 documented as of this encounter
--- OUTSIDE RECORDS SUMMARY | 2025-05-16 14:44 | XMS_ITS | Encounter Summary ---
Author Organization [facility] Address [address] [place] [address] Care Team Providers Care Certified Scrum Master Name Role Phone Romero Licea MD Primary Care Provi clifton Shana Mike VAN DRIVER HELPER Unavailable [phone] Julius Canseco MD Unavailable Encounter Details Date Type Department Care Team (Late st Contact Info) Description 04/25/2023 Procedure Pass [facility] Surgery [address] [place] [place] [address] Social History Tobacco Use Types [...] on filedocumented in this encounter Care Teams Certified Scrum Master Relationship Specialty Start Date End Date Romero Licea MD [address] [place], [place] [phone] PCP - General Family Medicine 08/03/21 Shana Mike NP [address] [place], [place] [phone] Nurse Practitioner Physical Medicine and Rehabilitation 11/15/22 Julius Canseco MD [address] [place] [address] Consulting Physician Physical Medicine and Rehabilitation 04/11/23 documented as of this encounter
--- OUTSIDE RECORDS SUMMARY | 2025-05-16 14:44 | XMS_ITS | Encounter Summary ---
Author Organization [facility] Address [address] [place] [address] Care Team Providers Care Saw Operator Name Role Phone Romero Licea MD Primary Care Provi clifton Shana Mike TRIMMER OPERATOR THREE KNIFE Unavailable [phone] Julius Canseco MD Unavailable Encounter Details Date Type Department Care Team (Late st Contact Info) Description 04/11/2023 Procedure Pass [facility] Surgery [address] [place] [place] [address] Social History Tobacco Use Types Packs/Day Years Used Date Smoking Tobacco: Former Cigarettes 2 10 Smokeless Tobacco: Never Alcohol Use Standard Drinks/Week Comments No 0 (1 standard drink = 0.6 oz pur e alcohol) Sex and Gender Information Value Date Recorded Sex Assigned at Not on file Legal Sex Male 10:38 AM [facility] Gender Identity Not on file Sexual Orientation Not on file documented as of this encounter Plan of Treatment Not on file documented as of this encounter Visit Diagnoses Not on filedocumented in this encounter Care Teams Saw Operator Relationship Specialty Start Date End Date Romero Licea MD [address] [place], [place] [phone] PCP - General Family Medicine 08/03/21 Shana Mike NP [address] [place], [place] [phone] Nurse Practitioner Physical Medicine and Rehabilitation 11/15/22 Julius Canseco MD [address] [place] [address] Consulting Physician Physical Medicine and Rehabilitation 04/11/23 documented as of this encounter
== END 2025-05-16 11:09 | disposition home or self-care (01) ==
LOC: HO.HOSX 11:08
PROVIDERS: PCP Physician Assistant; Visit Provider Physician Assistant
DX: M79.605 Pain in left leg (principal); M54.50 Low back pain, unspecified
CPT/HCPCS: 72100; 99202

== ENCOUNTER 2025-05-16 11:08 | Outpatient (AMB) | payer MEDICARE, SELFPAY ==
--- NOTE | 2025-05-16 10:46 | HO.SPINEOV ---
Intake Visit Reasons: LBP Intake Note: Mr. Ayala is here today c/o Low back pain with Difficulty walking. Geriatric Physical Therapist Required: No Allergies Seasonal Allergies Allergy (Mild, Verified 05/03/25 13:06) sneezing Assessment & Plan Assessment & Plan (1) Lumbar pain with radiation down left leg: Code(s): M54.50 - Low back pain, unspecified; M79.605 - Pain in left leg Category: Medical Plan Dear HANK Bermudez, Thank you for referring Kvng to our office today. He is a pleasant 69-year-old male who comes in today for evaluation of shooting pain down his left lower extremity. He reports that this began acutely about 45 days ago, and as significantly impacted his functional status and activities of daily living. He states prior to this acute onset of pain, he is able to walk upright with no left leg pain and only very minimal back pain which has been present for about 10 years. Abruptly, he awoke 1 morning without any inciting incident nearly unable to ambulate. Since then, he has had severe shooting pain from his left lateral hip down the posterior aspect of his left leg terminating near the calf. In order to ambulate he now has to significantly hunch over at almost a 90 degree angle to not experience severe pain that stops him from being able to walk. His family members accompanied him to this visit today and attested to his dramatic decline in functional status. He has attempted physical therapy and cortisone injections in his lumbar spine in the past, in his currently doing physical therapy at home. He does not find that it is helpful for him. He has been evaluated by a neurosurgeon before and was told about 10 years ago that he needed multi-level lumbar fusion. He does report some numbness below the level of the knee, but states he has a Hx of peripheral neuropathy and has had this at baseline for several years. He reports that he did seek ED evaluation both here at [facility] and at [facility] after initial onset of this issue, and states that they obtained XR and CT imaging of his left hip to r/o hip pathology. Eventually he was discharged home with a course of Prednisone and informed this is likely coming from compression in his spine. He reports that ambulation and lying down flat severely exacerbate his pain, and that sitting down and resting help to alleviate the pain. He reports minimal pain when sitting down resting during this evaluation. He has attempted [id number] medications to try and treat this issue including Tylenol, ibuprofen, and pain gels / creams. He is currently prescribed Gabapentin which he does report is modestly helpful but does not make the pain go away. He has been doing in home physical therapy but states this only seems to exacerbate his pain. PMH: HIV (most recent viral load 97), COPD, hyperlipidemia, type 2 diabetes (Last A1C reported as 6 according to internal medicine note from 05/04/25), GERD, insomnia, coronary artery disease with stent placement (previously on Plavix, now transitioned to Aspirin monotherapy), history of paroxysmal atrial fibrillation, peripheral arterial disease of left leg, iron deficiency, depression, anxiety. Social hx: Patient does not smoke, reports no other substance use. Medications: Albuterol, aspirin, atorvastatin, Biktarvy, Dulcolax, Valium, Trulicity, escitalopram, ferrous gluconate, fluticasone, gabapentin, glucose stick, insulin glargine, ipratropium-albuterol, lisinopril, metformin, omeprazole, MiraLax, prednisone, trazodone, umeclidinium. Allergies: NKDA Physical exam: The patient is in a wheelchair for examination. He is able to ambulate with a cane as well. He demonstrates this during examination. He is able to rise out of the wheelchair but has to remain bent over almost at a complete 90 degree angle to full weight bear. He ambulates 5-6 steps slowly but with seemingly good strength. Gait is slightly antalgic favoring the right hand side. He has a difficult time with the bulk of his strength testing due to pain, and remained fairly rigid for examination. I would rate his left lower extremity strength at about 4/5 with iliopsoas testing and knee flexion, the rest of his left lower extremity strength is 5/5. His right lower extermity strength is full. Hypoesthesia reported to light touch below knee level bilaterally. Rest of sensation is intact. (+) Right side straight leg raise. (-) Left side straight leg raise. (-) Colon's, (-) Clonus. Imaging review: CT scan of the lumbar spine completed here at [facility] shows bilateral pars interarticularis defect at L5. CT scan imaging appears to show normal bone quality. L3-4 is auto fused. MRI of the lumbar spine also completed here at [facility] shows multilevel spondylosis of lumbar spine with severe degenerative disc disease seen from L1-L4. There is nearly complete loss of disc height at these levels. Varying severity of nerve compression seen diffusely throughout the lumbar spine, most notable at L4-5 where there is a posterior disc bulge and severe central canal and bilateral foraminal stenosis. Impression: Kvng is a pleasant 69 year old male who comes in today for evaluation of severe left leg pain. This began acutely about 45 days ago, without any known inciting incident. In addition to his left leg pain he has significant difficulties with ambulation that he did not have 45 days ago. This patient's clinical picture is most consistent with a acute onset disc herniation at L4-5 causing severe central canal and bilateral foraminal stenosis. Sometimes with disc herniations even though they are encompassing the bilateral exiting nerve roots to a similar extent patients can develop a unilateral radiculopathy. I believe the best course of action for this patient would be minimally invasive microdiskectomy at L4-5, left side approach. He is now about 6 weeks out from his initial injury, therefore I do not believe that this is simply going to resorb on its own and resolve. The obvious alternative to this would be lumbar fusion to address both the herniated disc at L4-5 and the severe loss of disc height / nerve compression seen above the L4-5 level. I will review this patients case with my attending neurosurgeon Dr. Cummins and call to update the patient regarding surgical recommendations. Thank you for allowing us to care for your patient. The total time spent with this visit with this patient was 65 minutes reviewing history, physical exam, MRI & CT imaging review, and implementation of treatment plan or further diagnostic testing Alexandr Cummins MD,PhD [facility] Orders: Orders XR lumbar spine 2-3V 05/16/25 M54.50 - Low back pain, unspecified, M79.605 - Pain in left leg Coding Level of Care Code New Pt Level 5 (94680) Diagnoses Lumbar pain with radiation down left leg M54.50; M79.605
--- OUTSIDE RECORDS SUMMARY | 2025-05-16 13:49 | XMS_ITS | Encounter Summary ---
Author Organization [facility] Address [address] [place] [address] Care Team Providers Care Tobacco Flavorer Name Role Phone Shanae Zarate MD Unavailable Renee Mora DO Primary Care Provider [phone] Reason for Visit * Reason Comments Med Refill Encounter Details Date Type Department Care Team (Late st Contact Info) Description 06/23/2024 Refill [facility] [address] [place] [address] [place] [address] [place] [address] [address] [place] [address] Diabetic polyneuropathy associated with type 2 diabetes mellitus ([facility]/HCC) Social History Tobacco Use Types [...] How often do you attend chur or episcopal services? Patient declined 07/21/2022 Do you belong to any clubs o r organizations such as mosque groups, unions, fraternal or athletic groups, or [...] Date Recorded Depression Risk (PHQ2) Score [facility]ational Stress Questionnaire Answer [...] documented as of this encounter Care Teams Tobacco Flavorer Relationship Specialty Start Date End Date Renee Mora DO [address] [place], [place] [id number] PCP - General Family Medicine 06/04/24 Shanae Zarate MD [address] [place] [address] Consulting Physician Cardiology 10/13/20 documented as of this encounter
--- OUTSIDE RECORDS SUMMARY | 2025-05-16 13:49 | XMS_ITS | Encounter Summary ---
Author Organization [facility] Address [address] [place] [address] Care Team Providers Care Sports Centre Manager Name Role Phone Romero Licea MD Primary Care Provider Shanae Zarate MD Unavailable Princess Monroy NEWSPAPER EDITOR Unavailable [phone] Luh NashD Unavailable Cathy Tee RN Unavailable Romero Licea MD Unavailable Renee Mora DO Unavailable Renee Mora DO Primary Care Provider Reason for Visit * Reason Comments Med Refill Encounter Details Date Type Department Care Team (Late st Contact Info) Description 05/04/2019 Refill [facility] [address] [place], [place] [address] Nirmal Huizar MD [address] [place] [address] Social History Tobacco Use Types Packs/Day Years Used Date Smoking Tobacco: Never Assessed Sex and Gender Information Value Date Recorded Sex Assigned at Not on file Legal Sex Male 1:57 AM [facility] Gender Identity Not on file Sexual Orientation Not on file documented as of this encounter Plan of Treatment Not on file documented as of this encounter Visit Diagnoses Not on filedocumented in this encounter Care Teams Sports Centre Manager Relationship Specialty Start Date End Date Romero Licea MD PCP - General Family Medicine 06/27/19 05/27/24 Romero Licea MD [address] [place] [address] PCP - Medicare Advantage - Attributed PCP 10/09/22 07/10/23 Renee Mora DO [address] [place] [address] PCP - Medicare Advantage - Attributed PCP 07/11/23 06/09/24 Renee Mora DO [address] [place] [address] PCP - General Family Medicine 06/04/24 Shanae Zarate MD [address] [place] [address] Consulting Physician Cardiology 10/13/20 Princess Monroy LCSW [address] [place] [address] Human Resources Office Manager Gamewell Operator 10/31/20 05/27/24 Luh Nash, HunterD [address] [place] [address] Clinical Pharmacist Pharmacy 11/24/20 03/04/22 Cathy Tee, KAMERON [address] [place] [address] [facility] [place] [address] Conductor Freight ( Nurse) Care Management 08/17/21 documented as of this encounter
--- OUTSIDE RECORDS SUMMARY | 2025-05-16 13:49 | XMS_ITS | Encounter Summary ---
Author Organization [facility] Address [address] [place] [address] Care Team Providers Care Stress Analyst Name Role Phone Shanae Zarate MD Unavailable Renee Mora DO Primary Care Provider [phone] Reason for Visit * Reason Comments Med Refill Encounter Details Date Type Department Care Team (Late st Contact Info) Description 07/15/2024 Refill [facility] [address] [place], [place] [id number] Gay Rosario MD [address] [facility] [address] [place], [place] [id number] Diabetic polyneuropathy associated with type 2 diabetes mellitus ([facility]/HCC) Social History Tobacco Use Types Packs/Day Years [...] often do you attend chur ch or taoist services? Patient declined 07/21/2022 Do you belong [...] Date Recorded Depression Risk (PHQ2) Score 0 [facility] - Occupational Stress Questionnaire Answer Date [...] RFA TEAM No staff refills--now living in [place]--see Metformin request--see Apr 2024 refill request documented [...] documented as of this encounter Care Teams Stress Analyst Relationship Specialty Start Date End Date Renee Mora DO [address] [place] [address] PCP - General Family Medicine 06/04/24 Shanae Zarate MD [address] [place] [address] Consulting Physician Cardiology 10/13/20 documented as of this encounter
--- OUTSIDE RECORDS SUMMARY | 2025-05-16 13:49 | XMS_ITS | Clinical Summary ---
Author Organization [facility] Address [address] [place] [address] Care Team Providers Care Semiconductor Packages Platemaker Name Role Phone Shanae Zarate MD Unavailable Renee Mora DO Primary Care Provider [phone] Allergies Active Allergy Reactions Criticality Noted Date [...] - submitted cover my meds 06/16/22 (Toussaint: [email or web address]) - approved 06/02/22-06/16/23 Request #[id number] [place] Problem Noted Date Diagnosed Date Type 2 diabetes mellitus wit h diabetic peripheral angiopathy without gangrene, with long-term current use of insulin 07/01/2023 Type 2 diabetes mellitus with other specified co mplication 07/01/2023 Overview (07/01/2023): With mixed hyperlipidemia Assessment & Plan (07/01/2023 1:51 PM [facility]): Diabetes is controlled. A1c up because he was off trulicity for a while but been back on it. Stable. Continue present management. Age-related osteoporosis wit hout current pathological fracture 07/26/2022 Overview (07/26/2022): DXA 07/01 right hip -3.6, left hip -3.5 Assessment & Plan (07/26/2022 10:48 AM [facility]): Recent pelvic fracture. Counseling about osteopenia/osteoporosis. [...] LOVETT Assessment & Plan (07/26/2022 10:55 AM [facility]): Patient requested refill of his pain [...] is for him to consult with a channel marketing specialist or even update his spine imaging. I will defer this to his pain management team. Bilateral carpal tunnel syndrome 07/26/2022 Overview (07/26/2022): EMG/NCV 07/01 Assessment & Plan (07/26/2022 10:56 AM [facility]): I will request his records from [...] findings. Assessment & Plan (10/13/2020 11:44 AM [facility]): Condition is newly identified. Detailed treatment [...] agreement to get in touch with our [facility] team to help him get started on care, assist him to transition to terminal carman community and for healthy behaviors to manage [...] (03/11/2021 1:37 PM MST): Follow-up with his security systems engineer. Abdominal aortic atherosclerosis 06/29/2019 Overview (06/29/2019): [...] to stent. Advised to follow-up with his reexaminer. Benign essential HTN 06/29/2019 Assessment & Plan [...] comorbidities Paroxysmal atrial fibrillation 06/29/2019 Overview (07/01/2023): [id number] Score 3 Assessment & Plan (07/01/2023 1:50 [...] (10/13/2020): Added automatically from request for surgery [id number] Resolved Problems Problem Noted Date Diagnosed Date [...] Never 07/21/2022 How often do you attend [facility] or faith services? Patient declined 07/21/2022 Do you belong to any clubs o r organizations such as rastafarian groups, unions, fraternal or athletic groups, or [...] Date Recorded Depression Risk (PHQ2) Score 0 [facility] - Occupational Stress Questionnaire Answer Date [...] Body Mass Index 27.67 07/21/2022 1:37 PM [facility] Plan of Treatment Health Maintenance Due [...] X 1, STOOL Routine 10/15/2020 12:00 AM [facility] Screening for colorectal cancer HEPATITIS C VIRUS (HCV) ANTIBODY WITH REFLEX TO QUALITATIVE ISABEL Routine 07/26/2018 from Last 3 Months or Most Recently Relevant to Health Maintenance Results * Colonoscopy (08/03/2021) [facility] Colonoscopy colon polyps Historical Provider HEALTH MAINTENANCE Final Result * Occult blood x 1, stool (10/15/2020 12:00 AM [facility]) [facility] Occult Bld Immunochem Negative Negative WeTag Comment: Assay sensitivity is >95% when 50 ug Hb/g of stool is present. Clinical sensitivity for colorectal cancer is 87%, and for large adenomas is 47%, based on an evaluation of 240 individuals in a premarket commercial data set used for FDA approval. Overall, clinical specificity is 97.7%. Stool (Per Rectum) 10/15/2020 10/22/2020 7:18 PM [facility] Narrative [facility] - 10/15/2020 12:00 AM [facility] Time/Date of collection taken from specimen. Copy being sent to: Results Only Account [employer] Romero Lovett MD LAB BODY FLUIDS AND STOOLS OR DERABLES Edited Result - Final [facility] [place] [address] [place] [address] * Hepatitis C Virus (HCV) Antibody With Reflex to Qualitative ISABEL (07/26/2018) [facility] HCV Ab 0.08 <=0.79 Index [facility] Hepatitis C Ab Nonreactive Nonreactive F [facility] Comment: Performance characteristics of this [...] LAB BLOOD ORDERABLES Final Re sult [facility] Anywhere [address] from Last 3 Months or Most Recently Relevant to Health Maintenance Care Teams Semiconductor Packages Platemaker Relationship Specialty Start Date End Date Renee Mora DO [address] [place] [address] PCP - General Family Medicine 06/04/24 Shanae Zarate MD [address] [place] [address] Consulting Physician Cardiology 10/13/20
--- OUTSIDE RECORDS SUMMARY | 2025-05-16 13:49 | XMS_ITS | Encounter Summary ---
Author Organization [facility] Address [address] [place] [address] Care Team Providers Care Lead Consultant Name Role Phone Romero Licea MD Primary Care Provider Shanae Zarate MD Unavailable Princess Monroy GRINDER SETUP OPERATOR Unavailable [phone] Luh NashD Unavailable aCthy Tee RN Unavailable Romero Licea MD Unavailable Renee Mora DO Unavailable Renee Mora DO Primary Care Provider Reason for Visit * Reason Comments Med Refill Encounter Details Date Type Department Care Team (Late st Contact Info) Description 06/27/2019 Refill [facility] [address] [place], [place] [address] Nirmal Huizar MD [address] [place] [address] Social History Tobacco Use Types Packs/Day Years [...] on filedocumented in this encounter Care Teams Lead Consultant Relationship Specialty Start Date End Date Romero Licea MD PCP - General Family Medicine 06/27/19 05/27/24 Romero Licea MD [address] [place] [address] PCP - Medicare Advantage - Attributed PCP 10/09/22 07/10/23 Renee Mora DO [address] [place] [address] PCP - Medicare Advantage - Attributed PCP 07/11/23 06/09/24 Renee Mora DO [address] [place] [address] PCP - General Family Medicine 06/04/24 Shanae Zarate MD [address] [place] [address] Consulting Physician Cardiology 10/13/20 Princess Monroy LCSW [address] [place] [address] Fabrics And Material Cutter Proposal Coordinator 10/31/20 05/27/24 Luh Nash, HunterD [address] [place] [address] Clinical Pharmacist Pharmacy 11/24/20 03/04/22 Cathy Tee, KAMERON [address] [place] [address] [place] [address] Bull Fiddle Player ( Nurse) Care Management 08/17/21 documented as of this encounter
--- OUTSIDE RECORDS SUMMARY | 2025-05-16 13:49 | XMS_ITS | Encounter Summary ---
Author Organization [facility] Address [address] [place] [address] Care Team Providers Care Support Coordinator Name Role Phone Romero Licea MD Primary Care Provider Shanae Zarate MD Unavailable Princses Monroy FLATCAR WHACKER Unavailable [phone] Luh NashD Unavailable Cathy Tee RN Unavailable Romero Licea MD Unavailable Renee Mora DO Unavailable Renee Mora DO Primary Care Provider Reason for Visit * Reason Comments Med Refill Encounter Details Date Type Department Care Team (Late st Contact Info) Description 05/25/2019 Refill [facility] [address] [place], [place] [address] Nirmal Huizar MD [address] [place] [address] Social History Tobacco Use Types Packs/Day Years Used Date Smoking Tobacco: Never Assessed Sex and Gender Information Value Date Recorded Sex Assigned at Not on file Legal Sex Male 1:57 AM [facility] Gender Identity Not on file Sexual Orientation Not on file documented as of this encounter Plan of Treatment Not on file documented as of this encounter Visit Diagnoses Not on filedocumented in this encounter Care Teams Support Coordinator Relationship Specialty Start Date End Date Romero Licea MD PCP - General Family Medicine 06/27/19 05/27/24 Romero Licea MD [address] [place] [address] PCP - Medicare Advantage - Attributed PCP 10/09/22 07/10/23 Renee Mora DO [address] [place] [address] PCP - Medicare Advantage - Attributed PCP 07/11/23 06/09/24 Renee Mora DO [address] [place] [address] PCP - General Family Medicine 06/04/24 Shanae Zarate MD [address] [place] [address] Consulting Physician Cardiology 10/13/20 Princess Monroy LCSW [address] [place] [address] Gun Barrel Finisher [address] Arts Road Manager 10/31/20 05/27/24 Luh Nash, HunterD [address] [place] [address] Clinical Pharmacist Pharmacy 11/24/20 03/04/22 Cathy Tee, KAMERON [address] [place] [address] [place] [address] Pulp Grinder ( Nurse) Care Management 08/17/21 documented as of this encounter
== END 2025-05-16 12:05 | disposition home or self-care (01) ==
PROVIDERS: PCP Physician Assistant; Referring Provider Physician Assistant; Visit Provider Physician Assistant
DX: M54.50 Low back pain, unspecified (principal); M79.605 Pain in left leg
CPT/HCPCS: 99205

== ENCOUNTER → 2025-05-16 11:52 | Outpatient (BNV) | payer MEDICARE, SELFPAY | PROVIDERS: PCP Physician Assistant; Visit Provider Radiology Diagnostic Radiology | DX: M47.817 Spondylosis without myelopathy or radiculopathy, lumbosacral region (principal); M41.86 Other forms of scoliosis, lumbar region | CPT/HCPCS: 72100 ==

== ENCOUNTER 2025-05-23 14:58 | Outpatient (REF) | payer MEDICARE, SELFPAY ==
--- NOTE | ~2025-05-23 | MM_ITS ---
EXAMINATION: DXA BONE DENSITY AXIAL HISTORY: M81.0 - Age-related osteoporosis without current pathological fracture TECHNIQUE: FreakOut Dual energy absorptiometry (DEXA) of the lumbar spine, total left hip, and femoral neck was performed. COMPARISON: None FINDINGS: The bone mineral density of the lumbar spine is 1.508 g/cm2, corresponding to a T-score of 2.4, and a Z-score of 2.8. This is indicative of normal bone mineral density. This may be overestimated due to bony osteophyte/degenerative changes. The bone mineral density of the left total hip is 0.5-4 g/cm2, corresponding to a T-score of -4.0, and a Z-score of -3.4. This is indicative of osteoporosis. The bone mineral density of the left femoral neck is 0.609 g/cm2, corresponding to a T-score of -3.5, and a Z-score of -2.5. This is indicative of osteoporosis. MM/XR DEXA axial skeleton IMPRESSION: Based on bone mineral density, and according to World Health Organization (WHO) criteria, the diagnosis is consistent with severe osteoporosis based on lowest T score of -4 in the left femur. Pharmacological treatment recommended and follow-up exam in one year to monitor response to therapy. Treatment Recommendations: NOF guidelines recommend consideration for treatment in postmenopausal women and men age 50 and older presenting with the following: -A hip or vertebral (clinical or morphometric) fracture. -T-score less than or equal to -2.5 at the femoral neck or spine after appropriate evaluation to exclude secondary causes. -Low bone mass at the hip or spine and a 10-year fracture probability by FRAX of greater than or equal to 3% for hip fracture or greater than or equal to 20% for major osteoporotic fracture based on the [place] adapted WHO algorithm. Other Recommendations: All treatment decisions require clinical judgment and consideration of individual patient factors, including patient preferences, comorbidities, previous drug use, risk factors not captured in the FRAX model (e.g. frailty, falls, vitamin D deficiency, increased bone turnover, interval significant decline in bone density) and possible under or overestimation of fracture risk by FRAX. Additional medical evaluation for secondary cause of low bone mineral density may be appropriate. FUTURE SCAN RECOMMENDATION: People with diagnosed cases of osteoporosis or at high risk for fracture should have regular bone mineral density tests. For patients eligible for Medicare, routine testing is allowed once every 2 years. The testing frequency can be increased to one year for patients who have rapidly progressing disease, those who are receiving or discontinuing medical therapy to restore bone mass, or have additional risk factors. Statistically, 68% of repeat scans fall within 1 SD (+/- 0.010 g/cm2 for AP spine L1-L4) and 1 SD (+/- 0.012 g/cm2 for femur total) FRAX is a trademark of the [employer] [place] for Metabolic Bone Disease, a World Health Organization (WHO) Collaborating Center. Electronically signed by: Gay Avina MD 05/24/2025 05:11 PM [facility]
--- OUTSIDE RECORDS SUMMARY | 2025-05-23 18:14 | XMS_ITS | Clinical Summary ---
Author Organization [facility] Address [address] [place] [address] Care Team Providers Care Furniture Finisher Apprentice Name Role Phone Romero Licea MD Primary Care Provi clifton Shana Mike NP Unavailable [phone] Julius Canseco MD Unavailable Allergies No known [...] (10/06/2021): Added automatically from request for surgery [id number] Lumbar radiculopathy 10/05/2021 Overview (10/05/2021): Added automatically from request for surgery [id number] Fever 09/23/2017 Asthma 09/21/2017 HIV (human immunodeficiency virus infection) COPD (chronic obstructive pulmonary disease) Hypertension 09/21/2017 Polycythemia 09/21/2017 Hyponatremia 09/21/2017 Dehydration 09/20/[address] scan, stomach 09/20/2017 Overview (09/23/2017): Added automatically from request for surgery [id number] Social History Tobacco Use Types Packs/Day Years [...] Comments Blood Pressure 128/72 04/11/2023 5:00 PM [facility] Pulse 66 04/11/2023 5:00 PM [facility] Temperature 36.6 C (97.8 F) 04/11/2023 2:43 PM [facility] Respiratory Rate 16 04/11/2023 5:00 PM [facility] Oxygen Saturation 99% 04/11/2023 5:00 PM [facility] Inhaled Oxygen Concentration - - Weight 90.7 kg (200 lb) 04/11/2023 2:43 PM [facility] Height 177.8 cm (5' 10 ) 04/11/2023 2:43 PM [facility] Body Mass Index 28.7 04/11/2023 2:43 PM [facility] Plan of Treatment Health Maintenance Due Date Last Done Comments Adult Wellness Visit 1975 Hepatitis C Screen 1975 Hepatitis A Vaccine (1 of 2 - Risk 2-dose series) 1976 Zoster (Shingles) Vaccine (1 of 2) 1976 RSV Vaccine (1 - Risk 50-74 years 1-dose series) 2007 COVID-19 Vaccine (#1) 11/10/2020 11/10/2020, 021 Influenza Vaccine (#1) 2025 04/14/2021, 2015 DTaP,Tdap,or Td Vaccines (3 - Td or Tdap) 06/30/2028 06/30/2018, 03/31/2016 Abdominal Aortic Aneurysm (A AA) Screening Discontinued 09/21/2017, 09/20/2017 Hemoglobin A1C Discontinued 09/21/2017 Colonoscopy Discontinued 08/03/2021, 08/03/2021 Colorectal Cancer Screening Discontinued Pneumococcal Vaccine: 50+ Years Completed 07/21/2022, 07/26/2018, 03/31/2016 Cologuard Discontinued Fecal Immunohistochemical Test Discontinued HPV VACCINES (No Doses Required) Completed Sigmoidoscopy Discontinued Procedures Procedure Name Priority Date/Time Associated Diagnosis [...] abdomen pelvis with contrast (09/21/2017 8:44 PM [facility]) Anatomical Region Laterality Modality Abdomen, Chest, Pelvis, Hip Comp uted Tomography 09/21/2017 8:42 PM [facility] Narrative 09/21/2017 8:[address] [facility] [address] THORAX, ABDOMEN AND PELVIS [...] as detailed above. Seecomment. Bright Sanchez MD IM CT ORDERABLES Final Result * (ABNORMAL) Hemoglobin A1c (09/21/2017 4:47 AM [facility]) Hemoglobin A1C 8.5(H) <=5.7 % 09/21/2017 9:55 AM [facility] EAG 197.3 mg/dL 09/21/2017 9:55 AM [facility] Blood BLOOD SPECIMEN / Unknown Venipuncture / Unknown 09/21/2017 4:47 AM [facility] 09/21/2017 4:57 AM [facility] Narrative [facility] - 09/21/2017 9:55 AM [facility] The [place] Diabetes Association (ADA) guidelines for interpreting Hemoglobin A1C are as follows: Non-Diabetic patient: <5.7% Increased risk for future Diabetes: 5.7-6.4% ADA diagnostic criteria for Diabetes: >6.4% Values for patients with Diabetes: Result <7.0%: Meets ADA's recommendation goal for therapy. Result 7.0-8.0%: Exceeds ADA's recommended goal. Result >8.0%: ADA recommends reevaluation of therapy. us Dre Perez MD LAB BLOOD ORDERABLES Bess chavez Result [facility] [address] [place] [address], [facility] [phone] from Last 3 Months or Most Recently Relevant to Health Maintenance Insurance [facility] MEDICARE ADVANTAGE [facility] MEDICARE ADVANTAGE [employer] MEDICARE ADVANTAGE CIGNA MEDICARE ADVANTAGE Advance Directives For more information, please contact: [phone] * Full Code (Latest Code Status on File) Date Activated Date Inactivated Comments 09/20/2017 8:25 PM 09/26/2017 4:14 PM Care Teams Furniture Finisher Apprentice Relationship Specialty Start Date End Date Romero Licea MD [address] [place] [address] PCP - General Family Medicine 08/03/21 Shana Mike NP [address] [place] [address] Nurse Practitioner Physical Medicine and Rehabilitation 11/15/22 Julius Canseco MD [address] [place] [address] Consulting Physician Physical Medicine and Rehabilitation 04/11/23
--- OUTSIDE RECORDS SUMMARY | 2025-05-23 18:14 | XMS_ITS | Encounter Summary ---
Author Organization [facility] Address [address] [place] [address] Care Team Providers Care Tip Bander Name Role Phone Ubaldo Spring MD Primary Care Provider + [phone] Romero Licea MD Primary Care Provi clifton Shana Mike NP Unavailable [phone] Julius Canseco MD Unavailable Encounter Details Date Type Department Care Team (Late st Contact Info) Description 09/23/2017 Procedure Pass [facility] Endoscopy [address] [place] [address] Social History Tobacco Use Types [...] on filedocumented in this encounter Care Teams Tip Bander Relationship Specialty Start Date End Date Ubaldo Spring MD PCP - General Family Medicine 09/20/17 08/02/21 Romero Licea MD [address] [place] [address] PCP - General Family Medicine 08/03/21 Shana Mike NP [address] [place], [place] [phone] Nurse Practitioner Physical Medicine and Rehabilitation 11/15/22 Julius Canseco MD [address] [place], [place] [id number] Consulting Physician Physical Medicine and Rehabilitation 04/11/23 documented as of this encounter
--- OUTSIDE RECORDS SUMMARY | 2025-05-23 18:14 | XMS_ITS | Encounter Summary ---
Author Organization [facility] Address [address] [place] [address] Care Team Providers Care Vocational Examiner Name Role Phone Romero Licea MD Primary Care Provi clifton Shana Mike MOHEL Unavailable [phone] Julius Canseco MD Unavailable [phone] Encounter Details Date Type Department Care Team (Late st Contact Info) Description 04/25/2023 Procedure Pass [facility] Surgery [address] [place] [address] Social History Tobacco Use Types [...] on filedocumented in this encounter Care Teams Vocational Examiner Relationship Specialty Start Date End Date Romero Licea MD [address] [place], [place] [id number] PCP - General Family Medicine 08/03/21 Shana Mike NP [address] [place], [place] [id number] Nurse Practitioner Physical Medicine and Rehabilitation 11/15/22 Julius Canseco MD [address] [place] [address] Consulting Physician Physical Medicine and Rehabilitation 04/11/23 documented as of this encounter
--- OUTSIDE RECORDS SUMMARY | 2025-05-23 18:14 | XMS_ITS | Encounter Summary ---
Author Organization [facility] Address [address] [place] [address] Care Team Providers Care Shuttle Truck Driver Name Role Phone Romero Licea MD Primary Care Provi clifton Shana Mike JACKER Unavailable [phone] Julius Canseco MD Unavailable Encounter Details Date Type Department Care Team (Late st Contact Info) Description 04/11/[address] [facility] Surgery [address] [place] [address] Social History Tobacco Use Types [...] on filedocumented in this encounter Care Teams Shuttle Truck Driver Relationship Specialty Start Date End Date Romero Licea MD [address] [place], [place] [id number] PCP - General Family Medicine 08/03/21 Shana Mike NP [address] [place], [place] [phone] Nurse Practitioner Physical Medicine and Rehabilitation 11/15/22 Julius Canseco MD [address] [place] [address] Consulting Physician Physical Medicine and Rehabilitation 04/11/23 documented as of this encounter
--- OUTSIDE RECORDS SUMMARY | 2025-05-23 18:14 | XMS_ITS | Encounter Summary ---
Author Organization [facility] Address [address] [place] [address] Care Team Providers Care Highway Truck Driver Name Role Phone Romero Licea MD Primary Care Provi clifton Shana Mike CHIEF NURSE Unavailable [phone] Julius Canseco MD Unavailable Encounter Details Date Type Department Care Team (Late st Contact Info) Description 10/08/2021 Procedure Pass [facility] Surgery [address] [place] [address] Social History Tobacco Use Types Packs/Day Years Used Date Smoking Tobacco: Former Cigarettes 2 10 Smokeless Tobacco: Never Alcohol Use Standard Drinks/Week Comments No 0 (1 standard drink = 0.6 oz pur e alcohol) Sex and Gender Information Value Date Recorded Sex Assigned at Not on file Legal Sex Male 10:38 AM [facility] Gender Identity Not on file [...] on filedocumented in this encounter Care Teams Highway Truck Driver Relationship Specialty Start Date End Date Romero Licea MD [address] [place] [address] PCP - General Family Medicine 08/03/21 Shana Mike NP [address] [place] [address] Nurse Practitioner Physical Medicine and Rehabilitation 11/15/22 Julius Canseco MD [address] [place], [place] [phone] Consulting Physician Physical Medicine and Rehabilitation 04/11/23 documented as of this encounter
--- OUTSIDE RECORDS SUMMARY | 2025-05-23 18:14 | XMS_ITS | Encounter Summary ---
Author Organization [facility] Address [address] [place] [address] Care Team Providers Care Laboratory Helper Name Role Phone Romero Licea MD Primary Care Provi clifton Shana Mike LINTER SAW SHARPENER Unavailable [phone] Julius Canseco MD Unavailable Encounter Details Date Type Department Care Team (Late st Contact Info) Description 01/21/2022 Procedure Pass [facility] Surgery [address] [place] [address] Social History Tobacco Use Types [...] filedocumented in this encounter Care Teams Laboratory Helper Relationship Specialty Start Date End Date Romero Licea MD [address] [place] [address] PCP - General Family Medicine 08/03/21 Shana Mike NP [address] [place], [place] [phone] Nurse Practitioner Physical Medicine and Rehabilitation 11/15/22 Julius Canseco MD [address] [place] [address] Consulting Physician Physical Medicine and Rehabilitation 04/11/23 documented as of this encounter
--- OUTSIDE RECORDS SUMMARY | 2025-05-23 18:14 | XMS_ITS | Encounter Summary ---
Author Organization [facility] Address [address] [place] [address] Care Team Providers Care Transplant Coordinator Name Role Phone Romero Licea MD Primary Care Provi clifton Shnaa Mike ACCOUNT DEVELOPMENT EXECUTIVE Unavailable [phone] Julius Canseco MD Unavailable Encounter Details Date Type Department Care Team (Late st Contact Info) Description 08/03/2021 Procedure Pass [facility] Endoscopy [address] [place] [address] Social History Tobacco Use Types [...] on filedocumented in this encounter Care Teams Transplant Coordinator Relationship Specialty Start Date End Date Romero Licea MD [address] [place] [address] PCP - General Family Medicine 08/03/21 Shana Mike NP [address] [place] [address] Nurse Practitioner Physical Medicine and Rehabilitation 11/15/22 Julius Canseco MD [address] [place], [place] [phone] Consulting Physician Physical Medicine and Rehabilitation 04/11/23 documented as of this encounter
--- OUTSIDE RECORDS SUMMARY | 2025-05-23 18:14 | XMS_ITS | Encounter Summary ---
Author Organization [facility] Address [address] [place] [address] Care Team Providers Care Talent Development Coordinator Name Role Phone Romero Licea MD Primary Care Provi clifton Shana Mike OIL PROSPECTING OBSERVER Unavailable [phone] Julius Canseco MD Unavailable Encounter Details Date Type Department Care Team (Late st Contact Info) Description 10/22/2021 Procedure Pass [facility] Surgery [address] [place] [address] Social History Tobacco Use Types [...] on filedocumented in this encounter Care Teams Talent Development Coordinator Relationship Specialty Start Date End Date Romero Licea MD [address] [place] [address] PCP - General Family Medicine 08/03/21 Shana Mike NP [address] [place] [address] Nurse Practitioner Physical Medicine and Rehabilitation 11/15/22 Julius Canseco MD [address] [place], [place] [phone] Consulting Physician Physical Medicine and Rehabilitation 04/11/23 documented as of this encounter
--- OUTSIDE RECORDS SUMMARY | 2025-05-23 18:14 | XMS_ITS | Encounter Summary ---
Author Organization [facility] Address [address] [place] [address] Care Team Providers Care Business Development Officer Name Role Phone Romero Licea MD Primary Care Provi clifton Shana Mike EMT P Unavailable Julius Canseco MD Unavailable [phone] Encounter Details Date Type Department Care Team (Late st Contact Info) Description 02/04/2022 Procedure Pass [facility] Surgery [address] [place] [address] Social History Tobacco Use Types [...] on filedocumented in this encounter Care Teams Business Development Officer Relationship Specialty Start Date End Date Romero Licea MD [address] [place] [address] PCP - General Family Medicine 08/03/21 Shana Mike NP [address] [place], [place] [phone] Nurse Practitioner Physical Medicine and Rehabilitation 11/15/22 Julius Canseco MD [address] [place] [address] Consulting Physician Physical Medicine and Rehabilitation 04/11/23 documented as of this encounter
--- OUTSIDE RECORDS SUMMARY | 2025-05-23 18:14 | XMS_ITS | Encounter Summary ---
Author Organization [facility] Address [address] [place] [address] Care Team Providers Care Telemetry Tech Name Role Phone Ubaldo Spring MD Primary Care Provider + [phone] Romero Licea MD Primary Care Provi clifton Shana Mike NP Unavailable [phone] Julius Canseco MD Unavailable Encounter Details Date Type Department Care Team (Late st Contact Info) Description 09/24/2017 Procedure Pass [facility] Endoscopy [address] [place] [address] Social History Tobacco Use Types Packs/Day Years Used Date Smoking Tobacco: Former Cigarettes 2 10 2 - 2010 Smokeless Tobacco: Never Alcohol Use Standard Drinks/Week Comments No 0 (1 standard drink = 0.6 oz pur e alcohol) Sex and Gender Information Value Date Recorded Sex Assigned at Not on file Legal Sex Male 10:38 AM [facility] Gender Identity Not on file Sexual Orientation Not on file documented as of this encounter Plan of Treatment Not on file documented as of this encounter Visit Diagnoses Not on filedocumented in this encounter Care Teams Telemetry Tech Relationship Specialty Start Date End Date Ubaldo Spring MD PCP - General Family Medicine 09/20/17 08/02/21 Romero Licea MD [address] [place] [address] PCP - General Family Medicine 08/03/21 Shana Mike NP [address] [place], [place] [phone] Nurse Practitioner Physical Medicine and Rehabilitation 11/15/22 Julius Canseco MD [address] [place], [place] [phone] Consulting Physician Physical Medicine and Rehabilitation 04/11/23 documented as of this encounter
== END 2025-05-23 14:59 | disposition home or self-care (01) ==
LOC: HO.MAMMO 14:58
PROVIDERS: PCP Physician Assistant; Visit Provider Physician Assistant
DX: M81.0 Age-related osteoporosis without current pathological fracture (principal)
CPT/HCPCS: 77080

== ENCOUNTER → 2025-05-23 15:00 | Outpatient (BNV) | payer MEDICARE, SELFPAY | PROVIDERS: PCP Physician Assistant; Visit Provider Radiology Diagnostic Radiology | DX: M81.0 Age-related osteoporosis without current pathological fracture (principal) | CPT/HCPCS: 77080 ==

== ENCOUNTER 2025-05-24 15:13 | Outpatient (AMB) | payer MEDICARE, SELFPAY ==
--- NOTE | 2025-05-24 15:16 | A.SPINEOV_ITS ---
Intake Visit Reasons: follow up with D.P Intake Note: Mr. Ayala is here today for a F/u. Capacitor Pack Press Operator Required: No Allergies Seasonal Allergies Allergy (Mild, Verified 05/03/25 13:06) sneezing Coding
--- NOTE | 2025-05-24 15:38 | HO.SPINEOV ---
Intake Visit Reasons: follow up with D.P Allergies Seasonal Allergies Allergy (Mild, Verified 05/03/25 13:06) sneezing Assessment & Plan Assessment & Plan (1) Lumbar stenosis with neurogenic claudication: Code(s): M48.062 - Spinal stenosis, lumbar region with neurogenic claudication Category: Medical Plan On 05/24/2025, I saw for follow-up Kvng Ayala. He was recently seen by HANK Oneal for severe left lumbar radiculopathy. He wanted me to see him for further evaluation. The patient states that he developed an acute radiating pain 8 ago down the left hip into the outside of his lower leg. The pain is so severe that he has to walk around in a flexed position. A normal posterior causes severe pain down his left leg. Sitting down is comfortable. The symptoms are progressive. The patient is currently house bound due to the pain. Imaging reviewed a calcified disc herniation L4-5 and associated degenerative changes causing L4-5 spinal stenosis and lateral recess stenosis compressing the bilateral L5 nerve roots. Medically, he had a stent placed in 2016. He never had a heart attack. He was recently seen by Cardiology for checkup. He also has controlled diabetes and takes medications for HIV. This patient is suffering from a left L5 radiculopathy/unilateral claudication due to a combination of calcified disc and degenerative changes causing for 5 spinal stenosis severe compression of the L5 nerve root. I offered him a left L4-5 decompression. I spent 30 minutes in his consult reviewing imaging and discussing plan of care with the patient and his family. Danilo Cummins MD, PhD Spine Fellowship Trained Neurosurgeon Director, [facility] Coding Level of Care Code Est Pt Level 4 (21898) Diagnoses Lumbar stenosis with neurogenic claudication M48.062
--- OUTSIDE RECORDS SUMMARY | 2025-05-24 23:38 | XMS_ITS | Encounter Summary ---
Author Organization [facility] Address [address] [place] [address] Care Team Providers Care Web Content Developer Name Role Phone Shanae Zarate MD Unavailable Renee Mora DO Primary Care Provider [phone] Reason for Visit * Reason Comments Med Refill Encounter Details Date Type Department Care Team (Late st Contact Info) Description 07/15/2024 Refill [facility] Practice [address] [facility] [address] [place], [place] [id number] Gay Rosario MD [address] [facility] [address] [place], [place] [phone] Diabetic polyneuropathy associated with type 2 diabetes mellitus ([facility]/HCC) Social History Tobacco Use Types [...] often do you attend chur ch or uatsdin services? Patient declined 07/21/2022 Do you belong to any clubs o r organizations such as sikh groups, unions, fraternal or athletic groups, or [...] Date Recorded Depression Risk (PHQ2) Score 0 [facility] - Occupational Stress Questionnaire Answer [...] RFA TEAM No staff refills--now living in [place]--see Metformin request--see Apr 2024 refill request documented [...] documented as of this encounter Care Teams Web Content Developer Relationship Specialty Start Date End Date Renee Mora DO [address] [place] [address] PCP - General Family Medicine 06/04/24 Shanae Zarate MD [address] [place] [address] [place] [address] Consulting Physician Cardiology 10/13/20 documented as of this encounter
--- OUTSIDE RECORDS SUMMARY | 2025-05-24 23:38 | XMS_ITS | Encounter Summary ---
Author Organization [facility] Address [address] [place] [address] Care Team Providers Care Clinical Psychiatrist Name Role Phone Shanae Zarate MD Unavailable Renee Mora DO Primary Care Provider [phone] Reason for Visit * Reason Comments Med Refill Encounter Details Date Type Department Care Team (Late st Contact Info) Description 06/23/2024 Refill [facility] [address] [place] [address] [place] [address] [place] [address] [address] [place] [address] Diabetic polyneuropathy associated with type [...] How often do you attend chur or hoahaoism services? Patient declined 07/21/2022 Do you belong to any clubs o r organizations such as anabaptist groups, unions, fraternal or athletic groups, or [...] Date Recorded Depression Risk (PHQ2) Score 0 [facility] Occupational Stress Questionnaire Answer [...] to sleep or slept in a senior living (including now)? No 07/21/2022 Sex and Gender [...] documented as of this encounter Care Teams Clinical Psychiatrist Relationship Specialty Start Date End Date Renee Mora DO [address] [place], [place] [phone] PCP - General Family Medicine 06/04/24 Shanae Zarate MD [address] [address] [place] [address] Consulting Physician Cardiology 10/13/20 documented as of this encounter
--- OUTSIDE RECORDS SUMMARY | 2025-05-24 23:39 | XMS_ITS | Encounter Summary ---
Author Organization [facility] Address [address] [place] [address] Care Team Providers Care Wind Tunnel Technician Name Role Phone Ubaldo Spring MD Primary Care Provider + [phone] Romero Licea MD Primary Care Provi clifton Shana Mike NP Unavailable [phone] Julius Canesco MD Unavailable Encounter Details Date Type Department Care Team (Late st Contact Info) Description 09/23/2017 Procedure [facility] [address] [place] [address] Social History Tobacco Use Types Packs/Day Years Used Date Smoking Tobacco: Former Cigarettes 2 10 2 - 2010 Smokeless Tobacco: Never Alcohol Use Standard Drinks/Week Comments No 0 (1 standard drink = 0.6 oz pur e alcohol) Sex and Gender Information Value Date Recorded Sex Assigned at Not on file Legal Sex Male 10:38 AM [facility] Gender Identity Not on file Sexual Orientation Not on file documented as of this encounter Plan of Treatment Not on file documented as of this encounter Visit Diagnoses Not on filedocumented in this encounter Care Teams Wind Tunnel Technician Relationship Specialty Start Date End Date Ubaldo Spring MD PCP - General Family Medicine 09/20/17 08/02/21 Romero Licea MD [address] [place] [address] PCP - General Family Medicine 08/03/21 Shana Mike NP [address] [place], [place] [id number] Nurse Practitioner Physical Medicine and Rehabilitation 11/15/22 Julius Canseco MD [address] [place], [place] [id number] Consulting Physician Physical Medicine and Rehabilitation 04/11/23 documented as of this encounter
--- OUTSIDE RECORDS SUMMARY | 2025-05-24 23:39 | XMS_ITS | Clinical Summary ---
Author Organization [facility] Address [address] [place] [address] Care Team Providers Care Telegraph Service Clerk Name Role Phone Shanae Zarate MD Unavailable Renee Mora DO Primary Care Provider [phone] Allergies Active Allergy Reactions Criticality Noted Date [...] - submitted cover my meds 06/16/22 (Toussaint: [id number]) - approved 06/02/22-06/16/23 Request #[id number] nd Problem Noted Date Diagnosed Date Type 2 diabetes mellitus wit h diabetic peripheral angiopathy without gangrene, with long-term current use of insulin 07/01/2023 Type 2 diabetes mellitus with other specified co mplication 07/01/2023 Overview (07/01/2023): With mixed hyperlipidemia Assessment & Plan (07/01/2023 1:51 PM [facility]): Diabetes is controlled. A1c up because he was off trulicity for a while but been back on it. Stable. Continue present management. Age-related osteoporosis wit hout current pathological fracture 07/26/2022 Overview (07/26/2022): DXA 07/01 right hip -3.6, left hip -3.5 Assessment & Plan (07/26/2022 10:48 AM [facility]): Recent pelvic fracture. Counseling about osteopenia/osteoporosis. [...] LOVETT Assessment & Plan (07/26/2022 10:55 AM [facility]): Patient requested refill of his pain [...] is for him to consult with a azure principal solution specialist or even update his spine imaging. I will defer this to his pain management team. Bilateral carpal tunnel syndrome 07/26/2022 Overview (07/26/2022): EMG/NCV 07/01 Assessment & Plan (07/26/2022 10:56 AM [facility]): I will request his records from [...] findings. Assessment & Plan (10/13/2020 11:44 AM [facility]): Condition is newly identified. 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 Abdominal aortic atherosclerosis 06/29/2019 Overview (06/29/2019): CT [...] to stent. Advised to follow-up with his computational theory scientist. Benign essential HTN 06/29/2019 Assessment & Plan [...] comorbidities Paroxysmal atrial fibrillation 06/29/2019 Overview (07/01/2023): [id number] Score 3 Assessment & Plan (07/01/2023 1:50 [...] (10/13/2020): Added automatically from request for surgery [id number] Resolved Problems Problem Noted Date Diagnosed Date [...] Never 07/21/2022 How often do you attend [facility] or gnosticist services? Patient declined 07/21/2022 Do you belong [...] Date Recorded Depression Risk (PHQ2) Score 0 [facility] - Occupational Stress Questionnaire [...] Body Mass Index 27.67 07/21/2022 1:37 PM [facility] Plan of Treatment Health Maintenance Due [...] X 1, STOOL Routine 10/15/2020 12:00 AM [facility] Screening for colorectal cancer HEPATITIS C VIRUS (HCV) ANTIBODY WITH REFLEX TO QUALITATIVE ISABEL Routine 07/26/2018 from Last 3 Months or Most Recently Relevant to Health Maintenance Results * Colonoscopy (08/03/2021) [facility] Colonoscopy colon polyps Historical Provider HEALTH MAINTENANCE Final Result * Occult blood x 1, stool (10/15/2020 12:00 AM [facility]) [facility] Occult Bld Immunochem Negative Negative Elpas Comment: Assay sensitivity is >95% when 50 ug Hb/g of stool is present. Clinical sensitivity for colorectal cancer is 87%, and for large adenomas is 47%, based on an evaluation of 240 individuals in a premarket commercial data set used for FDA approval. Overall, clinical specificity is 97.7%. Stool (Per Rectum) 10/15/2020 10/22/2020 7:18 PM [facility] Narrative [facility] - 10/15/2020 12:00 AM [facility] Time/Date of collection taken from specimen. Copy being sent to: Results Only Account [employer] Romero Lovett MD LAB BODY FLUIDS AND STOOLS OR DERABLES Edited Result - Final [facility] [address] [place] [address] * Hepatitis C Virus (HCV) Antibody With Reflex to Qualitative ISABEL (07/26/2018) [facility] HCV Ab 0.08 <=0.79 Index FOUNDAT ION [...] LAB BLOOD ORDERABLES Final Re sult [facility] [address] from Last 3 Months or Most Recently Relevant to Health Maintenance Care Teams Telegraph Service Clerk Relationship Specialty Start Date End Date Renee Mora DO [address] [place] [address] PCP - General Family Medicine 06/04/24 Shanae Zarate MD [address] [place] [address] Consulting Physician Cardiology 10/13/20
--- OUTSIDE RECORDS SUMMARY | 2025-05-24 23:40 | XMS_ITS | Encounter Summary ---
Author Organization [facility] Address [address] [place] [address] Care Team Providers Care Sueding Machine Tender Name Role Phone Ubaldo Spring MD Primary Care Provider + [phone] Romero Licea MD Primary Care Provi clifton Shana Mike NP Unavailable [phone] Julius Canseco MD Unavailable Encounter Details Date Type Department Care Team (Late st Contact Info) Description 09/24/2017 Procedure Pass [facility] Endoscopy [address] [place] [address] Social History Tobacco Use Types [...] on filedocumented in this encounter Care Teams Sueding Machine Tender Relationship Specialty Start Date End Date Ubaldo Spring MD PCP - General Family Medicine 09/20/17 08/02/21 Romero Licea MD [address] [place] [address] PCP - General Family Medicine 08/03/21 Shana Mike NP [address] [place], [place] [phone] Nurse Practitioner Physical Medicine and Rehabilitation 11/15/22 Julius Canseco MD [address] [place], [place] [phone] Consulting Physician Physical Medicine and Rehabilitation 04/11/23 documented as of this encounter
--- OUTSIDE RECORDS SUMMARY | 2025-05-24 23:40 | XMS_ITS | Encounter Summary ---
Author Organization [facility] Address [address] [place] [address] Care Team Providers Care Head Of Partner Development Name Role Phone Romero Licea MD Primary Care Provi clifton Shana Mike COMMUNICATIONS CONTROLLER Unavailable [phone] Julius Canseco MD Unavailable Encounter Details Date Type Department Care Team (Late st Contact Info) Description 08/03/2021 Procedure Pass [facility] Endoscopy [address] [place] [address] Social History Tobacco Use Types [...] filedocumented in this encounter Care Teams Head Of Partner Development Relationship Specialty Start Date End Date Romero Licea MD [address] [place] [address] PCP - General Family Medicine 08/03/21 Shana Mike NP [address] [place] [address] Nurse Practitioner Physical Medicine and Rehabilitation 11/15/22 Julius Canseco MD [address] [place], [place] [phone] Consulting Physician Physical Medicine and Rehabilitation 04/11/23 documented as of this encounter
--- OUTSIDE RECORDS SUMMARY | 2025-05-24 23:41 | XMS_ITS | Encounter Summary ---
Author Organization [facility] Address [address] [place] [address] Care Team Providers Care Truck Repair Service Estimator Name Role Phone Romero Licea MD Primary Care Provi clifton Shana Mike LOSS PREVENTION LEAD Unavailable [phone] Julius Canseco MD Unavailable Encounter Details Date Type Department Care Team (Late st Contact Info) Description 10/22/2021 Procedure Pass [facility] Surgery [address] [place] [address] Social History Tobacco Use Types Packs/Day Years Used Date Smoking Tobacco: Former Cigarettes 2 10 Smokeless Tobacco: Never Alcohol Use Standard Drinks/Week Comments No 0 (1 standard drink = 0.6 oz pur e alcohol) Sex and Gender Information Value Date Recorded Sex Assigned at Not on file Legal Sex Male 10:38 AM [facility] Gender Identity Not on file [...] on filedocumented in this encounter Care Teams Truck Repair Service Estimator Relationship Specialty Start Date End Date Romero Licea MD [address] [place] [address] PCP - General Family Medicine 08/03/21 Shana Mike NP [address] [place] [address] Nurse Practitioner Physical Medicine and Rehabilitation 11/15/22 Julius Canseco MD [address] [place], [place] [phone] Consulting Physician Physical Medicine and Rehabilitation 04/11/23 documented as of this encounter
--- OUTSIDE RECORDS SUMMARY | 2025-05-24 23:42 | XMS_ITS | Encounter Summary ---
Author Organization [facility] Address [address] [place] [address] Care Team Providers Care Consumer Banker Name Role Phone Romero Licea MD Primary Care Provi clifton Shana Mike AGRICULTURAL MECHANIC Unavailable [phone] Julius Canseco MD Unavailable Encounter Details Date Type Department Care Team (Late st Contact Info) Description 10/08/2021 Procedure Pass [facility] [place] Surgery [address] [place] [address] Social History Tobacco Use Types [...] on filedocumented in this encounter Care Teams Consumer Banker Relationship Specialty Start Date End Date Romero Licea MD [address] [place] [address] PCP - General Family Medicine 08/03/21 Shana Mike NP [address] [place] [address] Nurse Practitioner Physical Medicine and Rehabilitation 11/15/22 Julius Canseco MD [address] [place], [place] [phone] Consulting Physician Physical Medicine and Rehabilitation 04/11/23 documented as of this encounter
--- OUTSIDE RECORDS SUMMARY | 2025-05-24 23:42 | XMS_ITS | Encounter Summary ---
Author Organization [facility] Address [address] [place] [address] Care Team Providers Care Sales Agent Insurance Name Role Phone Romero Licea MD Primary Care Provider Shanae Zarate MD Unavailable Princess Monroy GRADES 1 THRU 6 HOME TEACHER Unavailable [phone] Luh NashD Unavailable Cathy Tee RN Unavailable Romero Licea MD Unavailable Renee Mora DO Unavailable Renee Mora DO Primary Care Provider Reason for Visit * Reason Comments Med Refill Encounter Details Date Type Department Care Team (Late st Contact Info) Description 05/04/[address] [facility] [address] [place], [place] [address] Nirmal Huizar MD [address] [place] [address] Social History Tobacco Use Types Packs/Day Years Used Date Smoking Tobacco: Never Assessed Sex and Gender Information Value Date Recorded Sex Assigned at Not on file Legal Sex Male 1:57 AM [facility] Gender Identity Not on file Sexual Orientation Not on file documented as of this encounter Plan of Treatment Not on file documented as of this encounter Visit Diagnoses Not on filedocumented in this encounter Care Teams Sales Agent Insurance Relationship Specialty Start Date End Date Romero Licea MD PCP - General Family Medicine 06/27/19 05/27/24 Romero Licea MD [address] [place] [address] PCP - Medicare Advantage - Attributed PCP 10/09/22 07/10/23 Renee Mora DO [address] [place] [address] PCP - Medicare Advantage - Attributed PCP 07/11/23 06/09/24 Renee Mora DO [address] [place] [address] PCP - General Family Medicine 06/04/24 Shanae Zarate MD [address] [place] [address] Consulting Physician Cardiology 10/13/20 Princess Monroy LCSW [address] [place] [address] Director Of Orthopedics Full Roll Inspector 10/31/20 05/27/24 Luh Nash, HnuterD [address] [place] [address] Clinical Pharmacist Pharmacy 11/24/20 03/04/22 Cathy Tee, KAMERON [address] [place] [address] [facility] [place] [address] Trial Attorney ( Nurse) Care Management 08/17/21 documented as of this encounter
--- OUTSIDE RECORDS SUMMARY | 2025-05-24 23:43 | XMS_ITS | Encounter Summary ---
Author Organization [facility] Address [address] [place] [address] Care Team Providers Care Research Assoc Name Role Phone Romero Licea MD Primary Care Provider Shanae Zarate MD Unavailable Princess Monroy MANAGER DATA Unavailable [phone] Luh NashD Unavailable Cathy Tee RN Unavailable Romero Licea MD Unavailable Renee Mora DO Unavailable Renee Mora DO Primary Care Provider Reason for Visit * Reason Comments Med Refill Encounter Details Date Type Department Care Team (Late st Contact Info) Description 06/27/2019 Refill [facility] [address] [place], [place] [address] Nirmal Huizar MD [address] [place] [address] Social History Tobacco Use Types Packs/Day Years Used Date Smoking Tobacco: Never Assessed Sex and Gender Information Value Date Recorded Sex Assigned at Not on file Legal Sex Male 1:57 AM [facility] Gender Identity Not on file Sexual Orientation Not on file documented as of this encounter Plan of Treatment Not on file documented as of this encounter Visit Diagnoses Not on filedocumented in this encounter Care Teams Research Assoc Relationship Specialty Start Date End Date Romero Licea MD PCP - General Family Medicine 06/27/19 05/27/24 Romero Licea MD [address] [place] [address] PCP - Medicare Advantage - Attributed PCP 10/09/22 07/10/23 Renee Mora DO [address] [place] [address] PCP - Medicare Advantage - Attributed PCP 07/11/23 06/09/24 Renee Mora DO [address] [place] [address] PCP - General Family Medicine 06/04/24 Shanae Zarate MD [address] [facility] [place] [address] Consulting Physician Cardiology 10/13/20 Princess Monroy LCSW [address] [place] [address] Resident Services Manager Instrumentation Designer 10/31/20 05/27/24 Luh Nash, HunterD [address] [place] [address] Clinical Pharmacist Pharmacy 11/24/20 03/04/22 Cathy Tee, KAMERON [address] [place] [address] [place] [address] Case Management Assistant ( Nurse) Care Management 08/17/21 documented as of this encounter
--- OUTSIDE RECORDS SUMMARY | 2025-05-24 23:43 | XMS_ITS | Encounter Summary ---
Author Organization [facility] Address [address] [place] [address] Care Team Providers Care Supervisor Securities Vault Name Role Phone Romero Licea MD Primary Care Provider Shanae Zarate MD Unavailable Princess Monroy COPY MESSENGER Unavailable [phone] Luh NashD Unavailable Cathy Tee RN Unavailable Romero Licea MD Unavailable Renee Mora DO Unavailable Renee Mora DO Primary Care Provider Reason for Visit * Reason Comments Med Refill Encounter Details Date Type Department Care Team (Late st Contact Info) Description 05/25/2019 Refill [facility] [address] [place], [place] [address] Nirmal Huizar MD [address] [place] [address] Social History Tobacco Use Types Packs/Day Years [...] filedocumented in this encounter Care Teams Supervisor Securities Vault Relationship Specialty Start Date End Date Romero Licea MD PCP - General Family Medicine 06/27/19 05/27/24 Romero Licea MD [address] [place] [address] PCP - Medicare Advantage - Attributed PCP 10/09/22 07/10/23 Renee Mora DO [address] [place] [address] PCP - Medicare Advantage - Attributed PCP 07/11/23 06/09/24 Renee Mora DO [address] [place] [address] PCP - General Family Medicine 06/04/24 Shanae Zarate MD [address] [facility] [place] [address] Consulting Physician Cardiology 10/13/20 Princess Monroy LCSW [address] [place] [address] Technical Clerk Office Aide 10/31/20 05/27/24 Luh Nash, HunterD [address] [place] [address] Clinical Pharmacist Pharmacy 11/24/20 03/04/22 Cathy Tee, KAMERON [address] [place] [address] [place] [address] Pipeline Dispatcher ( Nurse) Care Management 08/17/21 documented as of this encounter
--- OUTSIDE RECORDS SUMMARY | 2025-05-24 23:44 | XMS_ITS | Encounter Summary ---
Author Organization [facility] Address [address] [place] [address] Care Team Providers Care Orthoptist Name Role Phone Romero Licea MD Primary Care Provi clifton Shana Mike STREETSWEEPER OPERATOR Unavailable Julius Canseco MD Unavailable Encounter Details Date Type Department Care Team (Late st Contact Info) Description 02/04/2022 Procedure Pass [facility] [place] [facility] Surgery [address] [place] [address] Social History Tobacco Use Types Packs/Day Years Used Date Smoking Tobacco: Former Cigarettes 2 10 Smokeless Tobacco: Never Alcohol Use Standard Drinks/Week Comments No 0 (1 standard drink = 0.6 oz pur e alcohol) Sex and Gender Information Value Date Recorded Sex Assigned at Not on file Legal Sex Male 10:38 AM [facility] Gender Identity Not on file Sexual [...] on filedocumented in this encounter Care Teams Orthoptist Relationship Specialty Start Date End Date Romero Licea MD [address] [place] [address] PCP - General Family Medicine 08/03/21 Shana Mike NP [address] [place], [place] [phone] Nurse Practitioner Physical Medicine and Rehabilitation 11/15/22 Julius Canseco MD [address] [place] [address] Consulting Physician Physical Medicine and Rehabilitation 04/11/23 documented as of this encounter
--- OUTSIDE RECORDS SUMMARY | 2025-05-24 23:44 | XMS_ITS | Encounter Summary ---
Author Organization [facility] Address [address] [place] [address] Care Team Providers Care Steamer Gum Candy Name Role Phone Romero Licea MD Primary Care Provi clifton Shana Mike BIG DATA DEVELOPER Unavailable [phone] Julius Canseco MD Unavailable Encounter Details Date Type Department Care Team (Late st Contact Info) Description 01/21/2022 Procedure Pass [facility] Surgery [address] [place] [address] Social History Tobacco Use Types [...] on filedocumented in this encounter Care Teams Steamer Gum Candy Relationship Specialty Start Date End Date Romero Licea MD [address] [place] [address] PCP - General Family Medicine 08/03/21 Shana Mike NP [address] [place], [place] [id number] Nurse Practitioner Physical Medicine and Rehabilitation 11/15/22 Julius Canseco MD [address] [place] [address] Consulting Physician Physical Medicine and Rehabilitation 04/11/23 documented as of this encounter
--- OUTSIDE RECORDS SUMMARY | 2025-05-24 23:45 | XMS_ITS | Encounter Summary ---
Author Organization [facility] Address [address] [place] [address] Care Team Providers Care Auto Rental Clerk Name Role Phone Romero Licea MD Primary Care Provi clifton Shana Mike TECHNICAL OPERATIONS VICE PRESIDENT Unavailable [phone] Julius Canseco MD Unavailable Encounter Details Date Type Department Care Team (Late st Contact Info) Description 04/11/2023 Procedure Pass [facility] Surgery [address] [place] [address] Social History Tobacco Use Types [...] on filedocumented in this encounter Care Teams Auto Rental Clerk Relationship Specialty Start Date End Date Romeor Licea MD [address] [place], [place] [phone] PCP - General Family Medicine 08/03/21 Shana Mike NP [address] [place], [place] [phone] Nurse Practitioner Physical Medicine and Rehabilitation 11/15/22 Julius Canseco MD [address] [place] [address] Consulting Physician Physical Medicine and Rehabilitation 04/11/23 documented as of this encounter
--- OUTSIDE RECORDS SUMMARY | 2025-05-24 23:45 | XMS_ITS | Encounter Summary ---
Author Organization [facility] Address [address] [place] [address] Care Team Providers Care Cardiopulmonary Specialist Name Role Phone Romero Licea MD Primary Care Provi clifton Shana Mike DEVELOPMENT EXPERT Unavailable [phone] Julius Canseco MD Unavailable Encounter Details Date Type Department Care Team (Late st Contact Info) Description 04/25/2023 Procedure Pass [facility] Surgery [address] [place] [address] Social History Tobacco Use Types [...] on filedocumented in this encounter Care Teams Cardiopulmonary Specialist Relationship Specialty Start Date End Date Romero iLcea MD [address] [place], [place] [phone] PCP - General Family Medicine 08/03/21 Shana Mike NP [address] [place], [place] [id number] Nurse Practitioner Physical Medicine and Rehabilitation 11/15/22 Julius Canseco MD [address] [place] [address] Consulting Physician Physical Medicine and Rehabilitation 04/11/23 documented as of this encounter
--- OUTSIDE RECORDS SUMMARY | 2025-05-24 23:46 | XMS_ITS | Clinical Summary ---
[facility] Organization [facility] Address [address] [place] [address] Care Team Providers Care Paint Supervisor Name Role Phone Romero Licea MD Primary Care Provi clifton Shana Mike NP Unavailable [phone] Julius Canseco MD Unavailable Allergies No known [...] (10/06/2021): Added automatically from request for surgery [id number] Lumbar radiculopathy 10/05/2021 Overview (10/05/2021): Added automatically from request for surgery [id number] Fever 09/23/2017 Asthma 09/21/2017 HIV (human immunodeficiency virus infection) COPD (chronic obstructive pulmonary disease) Hypertension 09/21/2017 Polycythemia 09/21/2017 Hyponatremia 09/21/2017 Dehydration 09/20/[address] scan, stomach 09/20/2017 Overview (09/23/2017): Added automatically from request for surgery [id number] Social History Tobacco Use Types Packs/Day Years Used Date Smoking Tobacco: Former Cigarettes 2 10 Smokeless Tobacco: Never Tobacco Cessation:Counseling Given: Not Answered Alcohol Use Standard Drinks/Week Comments No 0 (1 standard drink = 0.6 oz pur e alcohol) Sex and Gender Information Value Date Recorded Sex Assigned at Not on file Legal Sex Male 10:38 AM [facility] Gender Identity Not on file Sexual Orientation Not on file Last Filed Vital Signs Vital Sign Reading Time Taken Comments Blood Pressure 128/72 04/11/2023 5:00 PM [facility] Pulse 66 04/11/2023 5:00 PM [facility] Temperature 36.6 C (97.8 F) 04/11/2023 2:43 PM [facility] Respiratory Rate 16 04/11/2023 5:00 PM [facility] Oxygen Saturation 99% 04/11/2023 5:00 PM [facility] Inhaled Oxygen Concentration - - [...] Hip Comp uted Tomography 09/21/2017 8:42 PM [facility] Narrative 09/21/2017 8:[address] [facility] [address] THORAX, ABDOMEN AND PELVIS [...] * (ABNORMAL) Hemoglobin A1c (09/21/2017 4:47 AM [facility]) Hemoglobin A1C 8.5(H) <=5.7 % 09/21/2017 9:55 AM [facility] EAG 197.3 mg/dL 09/21/2017 9:55 AM [facility] Blood BLOOD SPECIMEN / Unknown Venipuncture / Unknown 09/21/2017 4:47 AM [facility] 09/21/2017 4:57 AM [facility] Narrative [facility] - 09/21/2017 9:55 AM [facility] The [place] Diabetes Association (ADA) guidelines for interpreting Hemoglobin A1C are as follows: Non-Diabetic patient: <5.7% Increased risk for future Diabetes: 5.7-6.4% ADA diagnostic criteria for Diabetes: >6.4% Values for patients with Diabetes: Result <7.0%: Meets ADA's recommendation goal for therapy. Result 7.0-8.0%: Exceeds ADA's recommended goal. Result >8.0%: ADA recommends reevaluation of therapy. us Dre Perez MD LAB BLOOD ORDERABLES Bess chavez Result [facility] [address] [place] [address], [facility] [phone] from Last 3 Months or Most Recently Relevant to Health Maintenance Insurance [facility] MEDICARE ADVANTAGE [facility] MEDICARE ADVANTAGE [employer] MEDICARE ADVANTAGE CIGNA MEDICARE ADVANTAGE Advance Directives For more information, please contact: [phone] * Full Code (Latest Code Status on File) Date Activated Date Inactivated Comments 09/20/2017 8:25 PM 09/26/2017 4:14 PM Care Teams Paint Supervisor Relationship Specialty Start Date End Date Romero Licea MD [address] [place] [address] PCP - General Family Medicine 08/03/21 Shana Mike NP [address] [place] [address] Nurse Practitioner Physical Medicine and Rehabilitation 11/15/22 Julius Canseco MD [address] [place] [address] Consulting Physician Physical Medicine and Rehabilitation 04/11/23
== END 2025-05-24 16:07 | disposition home or self-care (01) ==
LOC: HO.HNS 15:13
PROVIDERS: PCP Physician Assistant; Visit Provider Neurological Surgery
DX: M48.062 Spinal stenosis, lumbar region with neurogenic claudication (principal)
CPT/HCPCS: 99214

== ENCOUNTER → 2025-05-24 15:13 | Outpatient (BNVA) | payer MEDICARE, SELFPAY | PROVIDERS: PCP Physician Assistant; Visit Provider Neurological Surgery | DX: M48.062 Spinal stenosis, lumbar region with neurogenic claudication (principal); Z21 Asymptomatic human immunodeficiency virus [HIV] infection status | CPT/HCPCS: 99212 ==

== ENCOUNTER → 2025-05-29 13:59 | Outpatient (BNV) | payer MEDICARE, SELFPAY | PROVIDERS: PCP Physician Assistant; Referring Provider Physician Assistant; Visit Provider Nurse Practitioner Family | DX: D64.9 Anemia, unspecified (principal) | CPT/HCPCS: 99204 ==

== ENCOUNTER 2025-05-30 | Outpatient (REF) | payer OTHER, SELFPAY ==
--- OUTSIDE RECORDS SUMMARY | 2025-05-27 06:29 | XMS_ITS | Clinical Summary ---
[facility] Organization [facility] Address [address] [place] [address] Care Team Providers Care Paradi Tender Name Role Phone Romero Licea MD Primary Care Provi clifton Shana Mike NP Unavailable [phone] Julius Canseco MD Unavailable Allergies No known [...] (10/06/2021): Added automatically from request for surgery [id number] Lumbar radiculopathy 10/05/2021 Overview (10/05/2021): Added automatically from request for surgery [id number] Fever 09/23/2017 Asthma 09/21/2017 HIV (human immunodeficiency virus infection) COPD (chronic obstructive pulmonary disease) Hypertension 09/21/2017 Polycythemia 09/21/2017 Hyponatremia 09/21/2017 Dehydration 09/20/[address] scan, stomach 09/20/2017 Overview (09/23/2017): Added automatically from request for surgery [id number] Social History Tobacco Use Types Packs/Day Years [...] Comments Blood Pressure 128/72 04/11/2023 5:00 PM [facility] Pulse 66 04/11/2023 5:00 PM [facility] Temperature 36.6 C (97.8 F) 04/11/2023 2:43 PM [facility] Respiratory Rate 16 04/11/2023 5:00 PM [facility] Oxygen Saturation 99% 04/11/2023 5:00 PM [facility] Inhaled Oxygen Concentration - - Weight 90.7 [...] Hip Comp uted Tomography 09/21/2017 8:42 PM [facility] Narrative 09/21/2017 8:55 PM [facility] CT THORAX, ABDOMEN AND PELVIS WITH CONTRAST [...] * (ABNORMAL) Hemoglobin A1c (09/21/2017 4:47 AM [facility]) Hemoglobin A1C 8.5(H) <=5.7 % 09/21/2017 9:55 AM [facility] EAG 197.3 mg/dL 09/21/2017 9:55 AM [facility] Blood BLOOD SPECIMEN / Unknown Venipuncture / Unknown 09/21/2017 4:47 AM [facility] 09/21/2017 4:57 AM [facility] Narrative [facility] - 09/21/2017 9:55 AM [facility] The [place] Diabetes [employer] (ADA) guidelines for interpreting Hemoglobin A1C are as follows: Non-Diabetic patient: <5.7% Increased risk for future Diabetes: 5.7-6.4% ADA diagnostic criteria for Diabetes: >6.4% Values for patients with Diabetes: Result <7.0%: Meets ADA's recommendation goal for therapy. Result 7.0-8.0%: Exceeds ADA's recommended goal. Result >8.0%: ADA recommends reevaluation of therapy. us Dre Perez MD LAB BLOOD ORDERABLES Bess chavez Result [facility] [address] [place] [address], [facility] [phone] from Last 3 Months or Most Recently Relevant to Health Maintenance Insurance [facility] MEDICARE ADVANTAGE [facility] MEDICARE ADVANTAGE CIGNA MEDICARE ADVANTAGE CIGNA MEDICARE ADVANTAGE Advance Directives For more information, please contact: [phone] * Full Code (Latest Code Status on File) Date Activated Date Inactivated Comments 09/20/2017 8:25 PM 09/26/2017 4:14 PM Care Teams Paradi Tender Relationship Specialty Start Date End Date Romero Licea MD [address] [place] [address] PCP - General Family Medicine 08/03/21 Shana Mike NP [address] [place] [address] Nurse Practitioner Physical Medicine and Rehabilitation 11/15/22 Julius Canseco MD [address] [place] [address] Consulting Physician Physical Medicine and Rehabilitation 04/11/23
--- OUTSIDE RECORDS SUMMARY | 2025-05-27 06:29 | XMS_ITS | Encounter Summary ---
Author Organization [facility] Address [address] [place] [address] Care Team Providers Care Stamp Clerk Name Role Phone Romero Licea MD Primary Care Provider Shanae Zarate MD Unavailable Princess Monroy UNDERGROUND SUPERVISOR Unavailable [phone] Luh NashD Unavailable Cathy Tee RN Unavailable Romero Licea MD Unavailable Renee Mora DO Unavailable Renee Mora DO Primary Care Provider Reason for Visit * Reason Comments Med Refill Encounter Details Date Type Department Care Team (Late st Contact Info) Description 05/25/2019 Refill [facility] [address] [place], [place] [address] Nirmal Huizar MD [address] [place] [address] Social History Tobacco Use Types Packs/Day Years Used Date Smoking Tobacco: Never Assessed Sex and Gender Information Value Date Recorded Sex Assigned at Not on file Legal Sex Male 1:57 AM [facility] Gender Identity Not on file Sexual Orientation Not on file documented as of this encounter Plan of Treatment Not on file documented as of this encounter Visit Diagnoses Not on filedocumented in this encounter Care Teams Stamp Clerk Relationship Specialty Start Date End Date Romero Licea MD PCP - General Family Medicine 06/27/19 05/27/24 Romero Licea MD [address] [place] [address] PCP - Medicare Advantage - Attributed PCP 10/09/22 07/10/23 Renee Mora DO [address] [place] [address] PCP - Medicare Advantage - Attributed PCP 07/11/23 06/09/24 Renee Mora DO [address] [place] [address] PCP - General Family Medicine 06/04/24 Shanae Zarate MD [address] [facility] [address] Consulting Physician Cardiology 10/13/20 Princess Monroy LCSW [address] [place] [address] Recruiter Coordinator Api Product Manager 10/31/20 05/27/24 Luh Nash, HunterD [address] [place] [address] Clinical Pharmacist Pharmacy 11/24/20 03/04/22 Cathy Tee, KAMERON [address] [place] [address] [place] [address] Hot Dip Plater ( Nurse) Care Management 08/17/21 documented as of this encounter
--- OUTSIDE RECORDS SUMMARY | 2025-05-27 06:29 | XMS_ITS | Encounter Summary ---
Author Organization [facility] Address [address] [place] [address] Care Team Providers Care Label Stamper Name Role Phone Ubaldo Spring MD Primary Care Provider [phone] Romero Licea MD Primary Care Provi clifton Shana Mike NP Unavailable [phone] Julius Canseco MD Unavailable Encounter Details Date Type Department Care Team (Late st Contact Info) Description 09/23/2017 Procedure Pass [facility] Endoscopy [address] [place] [address] Social History Tobacco Use Types [...] on filedocumented in this encounter Care Teams Label Stamper Relationship Specialty Start Date End Date Ubaldo Spring MD PCP - General Family Medicine 09/20/17 08/02/21 Romero Licea MD [address] [place] [address] PCP - General Family Medicine 08/03/21 Shana Mike NP [address] [place], [place] [id number] Nurse Practitioner Physical Medicine and Rehabilitation 11/15/22 Julius Canseco MD [address] [place], [place] [id number] Consulting Physician Physical Medicine and Rehabilitation 04/11/23 documented as of this encounter
--- OUTSIDE RECORDS SUMMARY | 2025-05-27 06:29 | XMS_ITS | Encounter Summary ---
Author Organization [facility] Address [address] [place] [address] Care Team Providers Care Sales Engineer Account Manager Name Role Phone Shanae Zarate MD Unavailable Renee Mora DO Primary Care Provider [phone] Reason for Visit * Reason Comments Med Refill Encounter Details Date Type Department Care Team (Late st Contact Info) Description 06/23/2024 Refill [facility] [address] [place] [address] [place] [address] [place] [address] [address] [place] [address] Diabetic polyneuropathy associated with type 2 diabetes mellitus ([facility]) Social History Tobacco Use Types Packs/Day [...] How often do you attend chur or taoism services? Patient declined 07/21/2022 Do you belong to any clubs o r organizations such as scientology groups, unions, fraternal or athletic groups, or [...] Date Recorded Depression Risk (PHQ2) Score [facility] - Occupational Stress Questionnaire Answer [...] place to sleep or slept in a fdc (including now)? No 07/21/2022 Sex and Gender [...] as of this encounter Care Teams Sales Engineer Account Manager Relationship Specialty Start Date End Date Renee Mora DO [address] [place], [place] [id number] PCP - General Family Medicine 06/04/24 Shanae Zarate MD [address] [place] [address] Consulting Physician Cardiology 10/13/20 documented as of this encounter
--- OUTSIDE RECORDS SUMMARY | 2025-05-27 06:29 | XMS_ITS | Encounter Summary ---
Author Organization [facility] Address [address] [place] [address] Care Team Providers Care Front Loader Residential Driver Name Role Phone Romero Licea MD Primary Care Provi clifton Shana Mike FIRE EXTINGUISHER MECHANIC Unavailable [phone] Julius Canseco MD Unavailable [phone] Encounter Details Date Type Department Care Team (Late st Contact Info) Description 04/25/2023 Procedure Pass [facility] Surgery [address] [place] [address] Social History Tobacco Use Types [...] on filedocumented in this encounter Care Teams Front Loader Residential Driver Relationship Specialty Start Date End Date Romero Licea MD [address] [place], [place] [id number] PCP - General Family Medicine 08/03/21 Shana Mike NP [address] [place], [place] [id number] Nurse Practitioner Physical Medicine and Rehabilitation 11/15/22 Julius Canseco MD [address] [place] [address] Consulting Physician Physical Medicine and Rehabilitation 04/11/23 documented as of this encounter
--- OUTSIDE RECORDS SUMMARY | 2025-05-27 06:29 | XMS_ITS | Clinical Summary ---
Author Organization [facility] Address [address] [place] [address] Care Team Providers Care Child Care Lead Teacher Name Role Phone Shanae Zarate MD Unavailable Renee Mora DO Primary Care Provider [phone] Allergies Active Allergy Reactions Criticality Noted Date [...] - submitted cover my meds 06/16/22 (Toussaint: [email or web address]) - approved 06/02/22-06/16/23 Request #[id number] ar Problem Noted Date Diagnosed Date Type 2 diabetes mellitus wit h diabetic peripheral angiopathy without gangrene, with long-term current use of insulin 07/01/2023 Type 2 diabetes mellitus with other specified co mplication 07/01/2023 Overview (07/01/2023): With mixed hyperlipidemia Assessment & Plan (07/01/2023 1:51 PM [facility]): Diabetes is controlled. A1c up because he was off trulicity for a while but been back on it. Stable. Continue present management. Age-related osteoporosis wit hout current pathological fracture 07/26/2022 Overview (07/26/2022): DXA 07/01 right hip -3.6, left hip -3.5 Assessment & Plan (07/26/2022 10:48 AM [facility]): Recent pelvic fracture. Counseling about [...] Assessment & Plan (07/26/2022 10:55 AM [facility]): Patient requested refill of his [...] is for him to consult with a soil specialist or even update his spine imaging. I will defer this to his pain management team. Bilateral carpal tunnel syndrome 07/26/2022 Overview (07/26/2022): EMG/NCV 07/01 Assessment & Plan (07/26/2022 10:56 AM [facility]): I will request his records [...] Assessment & Plan (10/13/2020 11:44 AM [facility]): Condition is newly identified. Detailed [...] agreement to get in touch with our [facility] team to help him get started on care, assist him to transition to terminologist community and for healthy behaviors to manage [...] (03/11/2021 1:37 PM [facility]): Follow-up with his stores assistant. Abdominal aortic atherosclerosis 06/29/2019 Overview (06/29/2019): CT [...] stent. Advised to follow-up with his field trainer. Benign essential HTN 06/29/2019 Assessment & Plan [...] comorbidities Paroxysmal atrial fibrillation 06/29/2019 Overview (07/01/2023): [id number] Score 3 Assessment & Plan (07/01/2023 1:50 [...] (10/13/2020): Added automatically from request for surgery [id number] Resolved Problems Problem Noted Date Diagnosed Date [...] Never 07/21/2022 How often do you attend [facility] or tenriism services? Patient declined 07/21/2022 Do you belong to any clubs o r organizations such as religion groups, unions, fraternal or athletic groups, or [...] Date Recorded Depression Risk (PHQ2) Score 0 [facility] - Occupational Stress Questionnaire Answer Date Recorded [...] place to sleep or slept in a fci (including now)? No 07/21/2022 Sex and Gender Information Value Date Recorded Sex Assigned at Not on file Legal Sex Male 1:57 AM [facility] Gender Identity Not on [...] Mass Index 27.67 07/21/2022 1:37 PM [facility] Plan of Treatment Health Maintenance Due [...] 1, STOOL Routine 10/15/2020 12:00 AM [facility] Screening for colorectal cancer HEPATITIS C VIRUS (HCV) ANTIBODY WITH REFLEX TO QUALITATIVE ISABEL Routine 07/26/2018 from Last 3 Months or Most Recently Relevant to Health Maintenance Results * Colonoscopy (08/03/2021) [facility] Colonoscopy colon polyps Historical Provider HEALTH MAINTENANCE Final Result * Occult blood x 1, stool (10/15/2020 12:00 AM [facility]) [facility] Occult Bld Immunochem Negative Negative [employer] Comment: Assay sensitivity is >95% when 50 ug Hb/g of stool is present. Clinical sensitivity for colorectal cancer is 87%, and for large adenomas is 47%, based on an evaluation of 240 individuals in a premarket commercial data set used for FDA approval. Overall, clinical specificity is 97.7%. Stool (Per Rectum) 10/15/2020 10/22/2020 7:18 PM [facility] Narrative [facility] - 10/15/2020 12:00 AM [facility] Time/Date of collection taken from specimen. Copy being sent to: Results Only Account [employer] Romero Lovett MD LAB BODY FLUIDS AND STOOLS OR DERABLES Edited Result - Final [employer] [address] [place] [address] * Hepatitis C Virus (HCV) Antibody With Reflex to Qualitative ISABEL (07/26/2018) [facility] HCV Ab 0.08 <=0.79 Index [facility] Hepatitis C Ab Nonreactive Nonreactive [facility] Comment: Performance characteristics [...] Re sult [facility] Anywhere [address] from Last 3 Months or Most Recently Relevant to Health Maintenance Care Teams Child Care Lead Teacher Relationship Specialty Start Date End Date Renee Mora DO [address] [place] [address] PCP - General Family Medicine 06/04/24 Shanae Zarate MD [address] [place] [address] Consulting Physician Cardiology 10/13/20
--- OUTSIDE RECORDS SUMMARY | 2025-05-27 06:29 | XMS_ITS | Encounter Summary ---
Author Organization [facility] Address [address] [place] [address] Care Team Providers Care Donkey Engine Firer/Fireman Name Role Phone Ubaldo Spring MD Primary Care Provider + [phone] Romero Licea MD Primary Care Provi clifton Shana Mike NP Unavailable [phone] Julius Canseco MD Unavailable Encounter Details Date Type Department Care Team (Late st Contact Info) Description 09/24/2017 Procedure Pass [facility] Endoscopy [address] [place] [address] Social History Tobacco Use Types [...] on filedocumented in this encounter Care Teams Donkey Engine Firer/Fireman Relationship Specialty Start Date End Date Ubaldo Spring MD PCP - General Family Medicine 09/20/17 08/02/21 Romero Licea MD [address] [place] [address] PCP - General Family Medicine 08/03/21 Shana Mike NP [address] [place], [place] [phone] Nurse Practitioner Physical Medicine and Rehabilitation 11/15/22 Julius Canseco MD [address] [place], [place] [address] Consulting Physician Physical Medicine and Rehabilitation 04/11/23 documented as of this encounter
--- OUTSIDE RECORDS SUMMARY | 2025-05-27 06:29 | XMS_ITS | Encounter Summary ---
Author Organization [facility] Address [address] [place] [address] Care Team Providers Care Chief Dispatcher Name Role Phone Romero Licea MD Primary Care Provi clifton Shana Mike ACCOUNT DEVELOPMENT SPECIALIST Unavailable [phone] Julius Canseco MD Unavailable [phone] Encounter Details Date Type Department Care Team (Late st Contact Info) Description 10/22/2021 Procedure Pass [facility] Surgery [address] [address] Social History Tobacco Use [...] filedocumented in this encounter Care Teams Chief Dispatcher Relationship Specialty Start Date End Date Romero Licea MD [address] [place] [address] PCP - General Family Medicine 08/03/21 Shana Mike NP [address] [place] [address] Nurse Practitioner Physical Medicine and Rehabilitation 11/15/22 Julius Canseco MD [address] [place], [place] [id number] Consulting Physician Physical Medicine and Rehabilitation 04/11/23 documented as of this encounter
--- OUTSIDE RECORDS SUMMARY | 2025-05-27 06:29 | XMS_ITS | Encounter Summary ---
Author Organization [facility] Address [address] [place] [address] Care Team Providers Care Food Safety Field Specialist Name Role Phone Romero Licea MD Primary Care Provi clifton Shana Mike FURNITURE REMOVALIST Unavailable [phone] Julius Canseco MD Unavailable Encounter Details Date Type Department Care Team (Late st Contact Info) Description 04/11/2023 Procedure Pass [facility] Surgery [address] [place] [address] Social History Tobacco Use Types Packs/Day Years Used Date Smoking Tobacco: Former Cigarettes 2 10 Smokeless Tobacco: Never Alcohol Use Standard Drinks/Week Comments No 0 (1 standard drink = 0.6 oz pur e alcohol) Sex and Gender Information Value Date Recorded Sex Assigned at Not on file Legal Sex Male 10:38 AM [facility] Gender Identity Not on file Sexual Orientation Not on file documented as of this encounter Plan of Treatment Not on file documented as of this encounter Visit Diagnoses Not on filedocumented in this encounter Care Teams Food Safety Field Specialist Relationship Specialty Start Date End Date Romero Licea MD [address] [place], [place] [id number] PCP - General Family Medicine 08/03/21 Shana Mike NP [address] [place], [place] [phone] Nurse Practitioner Physical Medicine and Rehabilitation 11/15/22 Julius Canseco MD [address] [place] [address] Consulting Physician Physical Medicine and Rehabilitation 04/11/23 documented as of this encounter
--- OUTSIDE RECORDS SUMMARY | 2025-05-27 06:29 | XMS_ITS | Encounter Summary ---
Author Organization [facility] Address [address] [place] [address] Care Team Providers Care Hand Shaper Name Role Phone Romero Licea MD Primary Care Provider Shanae Zarate MD Unavailable Princess Monroy SODDER Unavailable Luh NashD Unavailable Cathy Tee RN Unavailable Romero Licea MD Unavailable Renee Mora DO Unavailable Renee Mora DO Primary Care Provider Reason for Visit * Reason Comments Med Refill Encounter Details Date Type Department Care Team (Late st Contact Info) Description 06/27/2019 Refill [facility] [address] [place], [place] [address] Nirmal Huizar MD [address] [place] [address] Social History Tobacco Use Types Packs/Day Years [...] filedocumented in this encounter Care Teams Hand Shaper Relationship Specialty Start Date End Date Romero Licea MD PCP - General Family Medicine 06/27/19 05/27/24 Romero Licea MD [address] [place] [address] PCP - Medicare Advantage - Attributed PCP 10/09/22 07/10/23 Renee Mora DO [address] [place] [address] PCP - Medicare Advantage - Attributed PCP 07/11/23 06/09/24 Renee Mora DO [address] [place] [address] PCP - General Family Medicine 06/04/24 Shanae Zarate MD [address] [facility] [address] Consulting Physician Cardiology 10/13/20 Princess Monroy LCSW [address] [place] [address] Supervisor Ship Maintenance Services Range Ecologist 10/31/20 05/27/24 Luh Nash, HunterD [address] [place] [address] Clinical Pharmacist Pharmacy 11/24/20 03/04/22 Cathy Tee, KAMERON [address] [place] [address] [place] [address] Clinical Advisor ( Nurse) Care Management 08/17/21 documented as of this encounter
--- OUTSIDE RECORDS SUMMARY | 2025-05-27 06:29 | XMS_ITS | Encounter Summary ---
Author Organization [facility] Address [address] [place] [address] Care Team Providers Care Choke Setter Name Role Phone Romero Licea MD Primary Care Provi clifton Shana Mike POLICE CAPTAIN SENIOR Unavailable Julius Canseco MD Unavailable Encounter Details Date Type Department Care Team (Late st Contact Info) Description 02/04/2022 Procedure Pass [facility] Surgery [address] [place] [address] Social History Tobacco Use Types [...] on filedocumented in this encounter Care Teams Choke Setter Relationship Specialty Start Date End Date Romero Licea MD [address] [place] [address] PCP - General Family Medicine 08/03/21 Shana Mike NP [address] [place], [place] [id number] Nurse Practitioner Physical Medicine and Rehabilitation 11/15/22 Julius Canseco MD [address] [place] [address] Consulting Physician Physical Medicine and Rehabilitation 04/11/23 documented as of this encounter
--- OUTSIDE RECORDS SUMMARY | 2025-05-27 06:29 | XMS_ITS | Encounter Summary ---
Author Organization [facility] Address [address] [place] [address] Care Team Providers Care Government Property Inspector Name Role Phone Romero Licea MD Primary Care Provi clifton Shana Mike NET UI DEVELOPER Unavailable [phone] Julius Canseco MD Unavailable [phone] Encounter Details Date Type Department Care Team (Late st Contact Info) Description 01/21/2022 Procedure Pass [facility] Surgery [address] [place] [address] Social History Tobacco Use Types [...] on filedocumented in this encounter Care Teams Government Property Inspector Relationship Specialty Start Date End Date Romero Licea MD [address] [place] [address] PCP - General Family Medicine 08/03/21 Shana Mike NP [address] [place], [place] [id number] Nurse Practitioner Physical Medicine and Rehabilitation 11/15/22 Julius Canseco MD [address] [place] [address] Consulting Physician Physical Medicine and Rehabilitation 04/11/23 documented as of this encounter
--- OUTSIDE RECORDS SUMMARY | 2025-05-27 06:29 | XMS_ITS | Encounter Summary ---
Author Organization [facility] Address [address] [place] [address] Care Team Providers Care Waste Water Or Water Plant Operator Name Role Phone Romero Licea MD Primary Care Provi clifton Shana Mike PST SPECIALIST Unavailable [phone] Julius Canseco MD Unavailable [phone] Encounter Details Date Type Department Care Team (Late st Contact Info) Description 08/03/2021 Procedure Pass [facility] Endoscopy [address] [place] [address] Social History Tobacco Use Types [...] on filedocumented in this encounter Care Teams Waste Water Or Water Plant Operator Relationship Specialty Start Date End Date Romero Licea MD [address] [place] [address] PCP - General Family Medicine 08/03/21 Shana Mike NP [address] [place] [address] Nurse Practitioner Physical Medicine and Rehabilitation 11/15/22 Julius Canseco MD [address] [place], [place] [id number] Consulting Physician Physical Medicine and Rehabilitation 04/11/23 documented as of this encounter
--- OUTSIDE RECORDS SUMMARY | 2025-05-27 06:29 | XMS_ITS | Encounter Summary ---
Author Organization [facility] Address [address] [place] [address] Care Team Providers Care Refractory Manager Name Role Phone Romero Licea MD Primary Care Provi clifton Shana Mike CRYSTALIZER OPERATOR Unavailable [phone] Julius Canseco MD Unavailable Encounter Details Date Type Department Care Team (Late st Contact Info) Description 10/08/2021 Procedure Pass [facility] Surgery [address] [place] [address] Social History Tobacco Use Types Packs/Day Years Used Date Smoking Tobacco: Former Cigarettes 2 10 Smokeless Tobacco: Never Alcohol Use Standard Drinks/Week Comments No 0 (1 standard drink = 0.6 oz pur e alcohol) Sex and Gender Information Value Date Recorded Sex Assigned at Not on file Legal Sex Male 10:38 AM [facility] Gender Identity Not on file Sexual Orientation [...] on filedocumented in this encounter Care Teams Refractory Manager Relationship Specialty Start Date End Date Romero Licea MD [address] [place] [address] PCP - General Family Medicine 08/03/21 Shana Mike NP [address] [place] [address] Nurse Practitioner Physical Medicine and Rehabilitation 11/15/22 Julius Canseco MD [address] [place], [place] [id number] Consulting Physician Physical Medicine and Rehabilitation 04/11/23 documented as of this encounter
--- OUTSIDE RECORDS SUMMARY | 2025-05-27 06:29 | XMS_ITS | Encounter Summary ---
Author Organization [facility] Address [address] [place] [address] Care Team Providers Care Curb Worker Name Role Phone Romero Licea MD Primary Care Provider Shanae Zarate MD Unavailable Princess Monroy HEALTH PSYCHOLOGIST Unavailable [phone] Luh NashD Unavailable Cathy Tee RN Unavailable Romero Licea MD Unavailable Renee Mora DO Unavailable Renee Mora DO Primary Care Provider Reason for Visit * Reason Comments Med Refill Encounter Details Date Type Department Care Team (Late st Contact Info) Description 05/04/2019 Refill [facility] [address] [place], [place] [id number] Nirmal Huizar MD [address] [place] [address] Social History Tobacco Use Types Packs/Day Years Used Date Smoking Tobacco: Never Assessed Sex and Gender Information Value Date Recorded Sex Assigned at Not on file Legal Sex Male 1:57 AM [facility] Gender Identity Not on file Sexual Orientation Not on file documented as of this encounter Plan of Treatment Not on file documented as of this encounter Visit Diagnoses Not on filedocumented in this encounter Care Teams Curb Worker Relationship Specialty Start Date End Date Romero Licea MD PCP - General Family Medicine 06/27/19 05/27/24 Romero Licea MD [address] [place] [address] PCP - Medicare Advantage - Attributed PCP 10/09/22 07/10/23 Renee Mora DO [address] [place] [address] PCP - Medicare Advantage - Attributed PCP 07/11/23 06/09/24 Renee Mora DO [address] [place] [address] PCP - General Family Medicine 06/04/24 Shanae Zarate MD [address] [place] [address] Consulting Physician Cardiology 10/13/20 Princess Monroy LCSW [address] [place] [address] Hand Stitcher Detector Car Operator 10/31/20 05/27/24 Luh Nash, HunterD [address] [place] [address] Clinical Pharmacist Pharmacy 11/24/20 03/04/22 Cathy Tee, KAMERON [address] [place] [address] [place] [address] Lockstitch Front Maker ( Nurse) Care Management 08/17/21 documented as of this encounter
--- OUTSIDE RECORDS SUMMARY | 2025-05-27 06:29 | XMS_ITS | Encounter Summary ---
Author Organization [facility] Address [address] [place] [address] Care Team Providers Care Piece Cutter Name Role Phone Shanae Zarate MD Unavailable Renee Mora DO Primary Care Provider Reason for Visit * Reason Comments Med Refill Encounter Details Date Type Department Care Team (Late st Contact Info) Description 07/15/2024 Refill [facility] [address] [facility] [address] [place], [place] [id number] Gay Rosario MD [address] [facility] [address] [place], [place] [id number] Diabetic polyneuropathy associated with type 2 diabetes mellitus ([facility]/HCC) Social History Tobacco Use Types Packs/Day [...] often do you attend chur ch or tenriism services? Patient declined 07/21/2022 Do [...] Depression Risk (PHQ2) Score 0 [facility] - Occupational Stress Questionnaire Answer [...] RFA TEAM No staff refills--now living in [place]--see Metformin request--see Apr 2024 refill request documented [...] documented as of this encounter Care Teams Piece Cutter Relationship Specialty Start Date End Date Renee Mora DO [address] [place] [address] PCP - General Family Medicine 06/04/24 Shanae Zarate MD [address] [place] [address] Consulting Physician Cardiology 10/13/20 documented as of this encounter
--- NOTE | 2025-05-27 13:03 | HO.ANESPROP2 ---
HPI - Anesthesia Eval Consult details Narrative: Pending reschedule d/t insurance 69yo M for L4-5 Decompression Follows [facility] Cardiology for: CAD - LAD/RCA PCI 2016 ? Hx of PAF - no anticoag and EKG NSR Stable at 04/2025 office visit - no CV symptoms when active prior to neuro-spine symptoms Follows [facility] Pulmo for: COPD 04/2025 office visit continues with productive cough and wheezing - given second steroid taper CXR 04/2025 shows bilateral atalectasis T/C to pt 05/27/25, pt reports improvment in symptoms. Off steroids, using scheduled inhalers as rx'd, nebulizer 1 x daily Pt on Trulicity. Last dose 05/25/25. < 1 week to DOS. Surgical team would like to proceed d/t severity of symptoms. Reviewed with LM. Anesthesia Pre-Procedure Meds Is the patient on any of the following meds?: GLP1/DPP4 PMFSH Active Problems Active Problems: All Active Problems Lumbar stenosis with neurogenic claudication (Acute) Renal cyst (Acute) Preoperative cardiovascular examination (Acute) PAF (paroxysmal atrial fibrillation) (Acute) Atherosclerotic cardiovascular disease (Acute) Left leg pain (Acute) Lumbar pain with radiation down left leg (Acute) History of recent pneumonia (Acute) Chronic cough (Acute) Hematuria (Acute) Osteoporosis (Acute) Environmental allergies (Acute) Dyspnea (Acute) Weight loss (Acute) Anemia (Acute) COPD (chronic obstructive pulmonary disease) (Acute) Hx of skin malignancy (Acute) HIV (human immunodeficiency virus infection) (Acute) Colon polyps (Acute) Anxiety with depression (Acute) High blood pressure (Acute) CAD (coronary artery disease) (Acute) Type 2 diabetes mellitus, with long-term current use of insulin (Acute) Past Medical History Medical History (Updated 05/29/25 @ 14:34 by Bella Moreira NP) Skin cancer Anxiety with depression HIV (human immunodeficiency virus infection) Anemia Osteoporosis Renal cyst COPD (chronic obstructive pulmonary disease) CAD (coronary artery disease) PAF (paroxysmal atrial fibrillation) Weight loss Hyperlipidemia Diabetes High blood pressure Family History Family History Father History of quadruple bypass Lung cancer Mother No problems noted. Surgical History Surgical History History of open reduction and internal fixation (ORIF) procedure Hx of cholecystectomy H/O colonoscopy H/O partial thyroidectomy Hx of heart artery stent Social History Social History (Updated 05/30/25 @ 11:05 by Chasity Meneses CMA) Household Members: Spouse Housing: House Housing Other:: mobile home Are you a primary manager urgent care to a significant other at home: No Do you presently have visiting nurse or other home services: No Alcohol intake: never Comment: using w/c due to severity of back symptoms Patient Tobacco Use Status: Never used Tobacco e-Cigarette/Vaping Use: Never Used Second Hand Smoke Exposure: Yes Substance Use Type: Marijuana service: No Current occupational status: retired and disabled Cognitive needs: No Hearing needs: Yes (Hearing aids. Did not put them in today. ) Vision needs: No Meds Allergies Allergy/AdvReac Type Severity Reaction Status Date / Time Seasonal Allergies Allergy Mild sneezing Verified 05/30/25 10:56 Home Medications ?Medication ?Instructions ?Recorded ?Confirmed ?Last Taken ?Type albuterol sulfate 2.5 mg/3 mL 2.5 mg inhalation Q4-6H PRN 01/08/25 05/29/25 Unknown History (0.083 %) solution for nebulization Shortness Of Breath Or Wheezing bictegravir 50 mg-emtricitabine 1 tab PO QPM 05/29/25 05/29/25 Unknown History 200 mg-tenofovir alafenam 25 mg tablet (Biktarvy) escitalopram oxalate 10 mg tablet 10 mg PO QPM 05/29/25 05/29/25 Unknown History insulin glargine 100 unit/mL (3 25 unit subcut QPM 05/29/25 05/29/25 Unknown History mL) subcutaneous pen (Lantus Solostar U-100 Insulin) lisinopril 40 mg tablet 40 mg PO QPM 05/29/25 05/29/25 Unknown History omeprazole 20 mg capsule,delayed 20 mg PO QPM 05/29/25 05/29/25 Unknown History release Exam Pertinent Lab Results Pertinent Lab Results: Laboratory Tests 05/03/25 13:44 WBC 6.1 Hgb 12.5 L Hct 36.8 L Plt Count 215 Sodium 137 Potassium 3.5 Chloride 104 Carbon Dioxide 25 BUN 14 Creatinine 0.98 Narrative Narrative: EKG 01/2025 EKG Details: EKG with underlying sinus rhythm at 85/Min; no ischemic changes; normal HI and corrected QT. ECHO 04/2025 Conclusions: - 1. Normal LV ejection fraction of 60 65% with grade 1 diastolic dysfunction 2. Mild calcific aortic and mitral valve changes noted with normal cardiac valve with a Dopplers 3. Mildly dilated ascending aorta at 3.8 cm 4. No gross pericardial effusion XR chest 2V IMPRESSION: Right basilar subsegmental atelectasis. Per cardiac note: Lexiscan myocardial perfusion study 2019 no ischemia. Inferior attenuation artifact. Assessment and Plan Assessment Anesthesia Assessment: Chart Reviewed
--- NOTE | 2025-05-28 15:05 | P.DS_ITS ---
DS: Providers Provider Date of Service: 05/30/25 Date of discharge: 05/30/25 Primary care physician: Mirian Bermudez PA-C Admitting clinician: Danilo Cummins DS: Diagnosis Discharge Diagnosis (1) Lumbar stenosis with neurogenic claudication: Status: Acute Discharge Plan Discharge Patient Disposition: Home, Self-Care Referrals: Mirian Bermudez PA-C [Primary Care Provider, Endocrinology] - 1 Week Discharge Medications: Continued ferrous gluconate 324 mg (37.5 mg iron) tablet 324 mg PO DAILY Qty: 90 0RF escitalopram oxalate 10 mg tablet 10 mg PO DAILY Qty: 90 0RF atorvastatin 40 mg tablet 40 mg PO BEDTIME Qty: 90 0RF trazodone 50 mg tablet 50 mg PO BEDTIME Qty: 90 0RF metformin 1,000 mg tablet 1,000 mg PO BID Qty: 180 0RF Incruse Ellipta 62.5 mcg/actuation blister with device 1 inh inhalation DAILY Qty: 30 3RF insulin glargine [Lantus Solostar U-100 Insulin] 100 unit/mL (3 mL) insulin pen 20 unit subcut QPM Qty: 15 5RF Trulicity 3 mg/0.5 mL pen injector 3 mg subcut QWEEK Qty: 2 5RF lisinopril 40 mg tablet 40 mg PO DAILY Qty: 90 3RF diazepam [Valium] 5 mg tablet 5 mg PO TID PRN (Reason: muscle spasm) Qty: 12 0RF Rx Instructions: partial fill is okay Biktarvy 30-120-15 mg Tablet 1 tab PO DAILY (DME) pen needle, diabetic 32 gauge x 5/32 needle See Rx Instructions .ROUTE .MEDSUPPLY Qty: 100 3RF Rx Instructions: Use BID As directed albuterol sulfate 90 mcg/actuation HFA aerosol inhaler 2 puff inhalation Q6H PRN (Reason: shortness of breath or wheezing) Qty: 8.5 3RF glucose [Dex4 Glucose Quick Dissolve] 4 gram tablet,chewable 16 g PO Q15M PRN (Reason: hypoglycemia) Qty: 10 3RF Rx Instructions: until symptoms of low blood sugar are controlled (DME) FreeStyle Charlie 3 [place] Misc See Rx Instructions .ROUTE .MEDSUPPLY Qty: 1 0RF Rx Instructions: Use daily to monitor blood glucose levels continuously. (DME) FreeStyle Charlie 3 Plus Sensor Device See Rx Instructions .ROUTE .MEDSUPPLY Qty: 2 11RF Rx Instructions: Apply 1 new sensor every 15 days as directed to monitor blood glucose continuously. omeprazole 20 mg capsule,delayed release(DR/EC) 20 mg PO DAILY Qty: 30 3RF bisacodyl [Dulcolax (bisacodyl)] 5 mg tablet,delayed release (DR/EC) 10 mg PO BEDTIME Qty: 16 0RF Rx Instructions: Start taking 2 tablet every night 7 days before the procedure and 1 day before procedure take 4 tablets at noon time followed by MiraLax prep polyethylene glycol 3350 [Miralax] 17 gram/dose powder 238 g PO ONCE Qty: 238 0RF Rx Instructions: As directed by gastroenterology department at [facility] ipratropium-albuterol 0.5 mg-3 mg(2.5 mg base)/3 mL solution for nebulization 3 ml inhalation Q6H PRN (Reason: wheezing) Qty: 180 0RF gabapentin 300 mg capsule 600 mg PO TID 30 Days Qty: 180 11RF albuterol sulfate 2.5 mg /3 mL (0.083 %) solution for nebulization 2.5 mg inhalation Q4-6H PRN (Reason: Shortness Of Breath Or Wheezing) fluticasone furoate-vilanterol [Breo Ellipta] 100-25 mcg/dose blister with device 1 inh inhalation DAILY Qty: 60 6RF Held aspirin [Adult Aspirin Regimen] 81 mg tablet,delayed release (DR/EC) 81 mg PO DAILY Hold Instructions: Resume on 06/06/25. You may resume aspirin 1 week after surgery Discontinued prednisone 10 mg tablet 10 mg PO DIRECTED Qty: 30 0RF Rx Instructions: see taper instructions; 40 mg Daily x3 days, 30 mg daily x3 days, 20 mg daily x3 days, 10 mg daily x3 days Diet: Advance to usual diet Activity on Discharge: As tolerated Activity Restrictions/Additional Instructions: After your spinal surgery we ask you to observe the following restrictions/guidelines: Activity: It is normal to feel some discomfort as you increase your activity, but that will improve with time. We ask you avoid heavy lifting or acitivities that cause pain. As a general rule, 8lbs is a safe limit for lifting right after surgery. Walk as much as you feel comfortable but not to exhaustion. You will feel extra tired the first few days after surgery. Stay well hydrated. It is OK to walk up and down stairs You may return to driving when you are off narcotics (such as vicodin, oxycodone, dilaudid, etc), and you are back to normal functional capacity. If you have any concerns please check with office before driving. Return to work is specific to each patient and each surgery, so please speak with your doctor/PA at first follow up. Please bring paperwork such as FMLA at that time if you need it filled out. Medications: You may resume aspirin 1 week after surgery For optimum pain control, it is best to start with a combination of 500 mg of Tylenol every 4 hours with 600 mg of Motrin every 8 hours, and use narcotics as needed in between for breakthrough pain. We will give you a short supply of narcotics after surgery (usually one weeks worth). If you need more please call the office but do not use more than prescribed. You will need to give our office 48 hours notice if you need narcotics refilled and we do not fill narcotics on weekends or evenings. If you are on a narcotic, it is a good idea to take a stool softener such as colace or senna to avoid constipation If you take blood thinner such as aspirin, Plavix, Coumadin, Effient, Eliquis etc for conditions such as Afib, DVT, Pulmonary embolus, coronary disease, stents etc please speak with your surgeon about specific details as to when you can resume these medications. Follow up: Please call the office, , after surgery to arrange a 3 week follow up for wound check. Wound Care: You may remove your dressing on the first day after surgery. ?You may ?leave open to air. Please do not remove the steri strips underneath. they will fall off on their own in one week. IT IS NORMAL FOR THE WOUND TO OOZE OR BE BLOODY FOR A FEW DAYS AFTER SURGERY. ?IF THIS HAPPENS JUST PLACE NEW DRESSING OVER IT TO AVOID STAINING CLOTHES. You may shower on post op day # 1 We ask that you do not let the water soak the wound. If it does get wet, just towel dry lightly. Please do not scrub your incision or place any type of chemical/ointment on the wound. No tub baths, pools or jacuzzis for one month. If you have any leaking or redness from your wound, or fevers, please call office Print Language: Uzbek
[2025-05-29 08:59] VITALS: BMI 26.6
--- OUTSIDE RECORDS SUMMARY | 2025-08-01 09:30 | XMS_ITS | Encounter Summary ---
Author Organization [facility] Address [address] [place] [address] Care Team Providers Care Certified Alcohol Drug Counselor Name Role Phone Shanae Zarate MD Unavailable Renee Mora DO Primary Care Provider Unavailabl e Reason for Visit * Reason Comments Med Refill Encounter Details Date Type Department Care Team (Late st Contact Info) Description 06/23/2024 Refill [facility] [address] [place] [address] Renee Mora DO Diabetic polyneuropathy associated with type 2 diabetes mellitus (CMS/HCC) Social History Tobacco Use Types Packs/Day Years [...] friends, or neighbors? Three times a week 01/11/20 23 How often do you get togethe r with friends or relatives? Never 07/21/2022 How often do you attend chur or mandaeism services? Patient declined 07/21/2022 Do you belong [...] Score 0 [facility] - Occupational [...] NOT MEET PROTOCOL GUIDELINES. REASON: -FORMER RACHELL PTKeesha HAS NOT EST CARE WITH NEW PROVIDER LAST VISIT DATE: 07/01/2023 documented in this encounter Plan of Treatment Not on file documented as of this encounter Visit Diagnoses Diagnosis Diabetic polyneuropathy associated with type 2 diabetes mellitus ([facility]) documented in this encounter Additional Health Concerns Assessment Noted Time PHQ-9 Depression Total Score: 0 07/01/20 23 1:59 PM MST PHQ-2 Depression Total Score: 0 07/01/20 23 1:59 PM MST documented as of this encounter Care Teams Certified Alcohol Drug Counselor Relationship Specialty Start Date End Date Renee Mora DO [address] [place] [address] PCP - General Family Medicine 06/04/24 Shanae Zarate MD [address] [place] [address] Consulting Physician Cardiology 10/13/20 documented as of this encounter
--- OUTSIDE RECORDS SUMMARY | 2025-08-01 09:31 | XMS_ITS | Encounter Summary ---
Author Organization [facility] Address [address] [place] [address] Care Team Providers Care Qi Specialist Name Role Phone Shanae Zarate MD Unavailable Renee Mora DO Primary Care Provider Unavailabl e Reason for Visit * Reason Comments Med Refill Encounter Details Date Type Department Care Team (Late st Contact Info) Description 07/15/2024 Refill [facility] [address] [facility] [address] [place] [address] Gay Rosario MD Diabetic polyneuropathy associated with type 2 [...] How often do you attend chur or faith services? Patient declined 07/21/2022 Do [...] Date Recorded Depression Risk (PHQ2) Score 0 [facility] [...] RFA TEAM No staff refills--now living in [place]--see Metformin request--see Apr 2024 refill request documented [...] documented as of this encounter Care Teams Qi Specialist Relationship Specialty Start Date End Date Renee Mora DO [address] [place] [address] PCP - General Family Medicine 06/04/24 Shanae Zarate MD [address] [place] [address] Consulting Physician Cardiology 10/13/20 documented as of this encounter
--- OUTSIDE RECORDS SUMMARY | 2025-08-01 09:31 | XMS_ITS | Encounter Summary ---
Author Organization [facility] Address [address] [place] [address] Care Team Providers Care Boiler Fireman Name Role Phone Romero Licea MD Primary Care Provi clifton Shana Mike GEM STONE CUTTER Unavailable [phone] Julius Canseco MD Unavailable Encounter Details Date Type Department Care Team (Late st Contact Info) Description 01/21/2022 Procedure Pass [facility] Surgery [address] [place] [address] Social History Tobacco Use Types [...] on filedocumented in this encounter Care Teams Boiler Fireman Relationship Specialty Start Date End Date Romero Licea MD [address] [place] [address] PCP - General Family Medicine 08/03/21 Shana Mike NP [address] [place], [place] [phone] Nurse Practitioner Physical Medicine and Rehabilitation 11/15/22 Julius Canseco MD [address] [place] [address] Consulting Physician Physical Medicine and Rehabilitation 04/11/23 documented as of this encounter
--- OUTSIDE RECORDS SUMMARY | 2025-08-01 09:31 | XMS_ITS | Clinical Summary ---
Author Organization [facility] Address [address] [place] [address] Care Team Providers Care Tower Foreman Name Role Phone Romero Licea MD Primary Care Provi clifton Shana Mike NP Unavailable [phone] Julius Canseco MD Unavailable Allergies No known [...] (10/06/2021): Added automatically from request for surgery [id number] Lumbar radiculopathy 10/05/2021 Overview (10/05/2021): Added automatically from request for surgery [id number] Fever 09/23/2017 Asthma 09/21/2017 HIV (human immunodeficiency virus infection) COPD (chronic obstructive pulmonary disease) Hypertension 09/21/2017 Polycythemia 09/21/2017 Hyponatremia 09/21/2017 Dehydration 09/20/[address] scan, stomach 09/20/2017 Overview (09/23/2017): Added automatically from request for surgery [id number] Social History Tobacco Use Types Packs/Day Years Used Date Smoking Tobacco: Former Cigarettes 2 10 Smokeless Tobacco: Never Tobacco Cessation:Counseling Given: Not Answered Alcohol Use Standard Drinks/Week Comments No 0 (1 standard drink = 0.6 oz pur e alcohol) Sex and Gender Information Value Date Recorded Sex Assigned at Not on file Legal Sex Male 10:38 AM [facility] Gender Identity Not on file Sexual Orientation Not on file Last Filed Vital Signs Vital Sign Reading Time Taken Comments Blood Pressure 128/72 04/11/2023 5:00 PM [facility] Pulse 66 04/11/2023 5:00 PM [facility] Temperature 36.6 C (97.8 F) 04/11/2023 2:43 PM [facility] Respiratory Rate 16 04/11/2023 5:00 PM [facility] Oxygen Saturation 99% 04/11/2023 5:00 PM [facility] Inhaled Oxygen Concentration - - Weight 90.7 [...] pelvis with contrast (09/21/2017 8:44 PM [facility]) Anatomical Region Laterality Modality Abdomen, Chest, Pelvis, Hip Comp uted Tomography 09/21/2017 8:42 PM [facility] Narrative 09/21/2017 8:55 PM [facility] CT THORAX, ABDOMEN AND PELVIS WITH CONTRAST [...] (ABNORMAL) Hemoglobin A1c (09/21/2017 4:47 AM [facility]) Hemoglobin A1C 8.5(H) <=5.7 % 09/21/2017 9:55 AM [facility] EAG 197.3 mg/dL 09/21/2017 9:55 AM [facility] Blood BLOOD SPECIMEN / Unknown Venipuncture / Unknown 09/21/2017 4:47 AM [facility] 09/21/2017 4:57 AM MST Narrative [facility] - 09/21/2017 9:55 AM [facility] The [place] Diabetes Association (ADA) guidelines for interpreting Hemoglobin [...] Result [facility] [id number] [id number], [facility] [phone] from Last 3 Months or Most Recently Relevant to Health Maintenance Insurance [employer] HMO [employer] ADV HMO [employer] ADV HMO Advance Directives For more information, please contact: [phone] * Full Code (Latest Code Status on File) Date Activated Date Inactivated Comments 09/20/2017 8:25 PM 09/26/2017 4:14 PM Care Teams Tower Foreman Relationship Specialty Start Date End Date Romero Licea MD [address] [place] [address] PCP - General Family Medicine 08/03/21 Shana Mike NP [address] [place] [address] Nurse Practitioner Physical Medicine and Rehabilitation 11/15/22 Julius Canseco MD [address] [place], [place] [address] Consulting Physician Physical Medicine and Rehabilitation 04/11/23
--- OUTSIDE RECORDS SUMMARY | 2025-08-01 09:31 | XMS_ITS | Encounter Summary ---
Author Organization [facility] Address [address] [place] [address] Care Team Providers Care Scale Shooter Name Role Phone Romero Licea MD Primary Care Provider [phone] Shanae Zarate MD Unavailable Princess Monroy HEADMASTER/MISTRESS Unavailable [phone] Luh NashD Unavailable Unavailab Cathy Givens RN Unavailable Romero Licea MD Unavailable [phone] Renee Mora DO Unavailable Unavailable Renee Mora DO Primary Care Provider Unavailabl e Reason for Visit * Reason Comments Med Refill Encounter Details Date Type Department Care Team (Late st Contact Info) Description 06/27/2019 Refill [facility] [address] [place], [place] [phone] Nirmal Huizar MD [address] [place], [place] [address] Social History Tobacco Use Types Packs/Day Years [...] on filedocumented in this encounter Care Teams Scale Shooter Relationship Specialty Start Date End Date Romero Licea MD PCP - General Family Medicine 06/27/19 05/27/24 Romero Licea MD [address] [place] [address] PCP - Medicare Advantage - Attributed PCP 10/09/22 07/10/23 Renee Mora DO PCP - Medicare Advantage - Attributed PCP 07/11/23 06/09/24 Renee Mora DO PCP - General Family Medicine 06/04/24 Shanae Zarate MD [address] [place] [address] Consulting Physician Cardiology 10/13/20 Princess Monroy LCSW [address] [place] [address] Chief Science Officer Restoration Technician 10/31/20 05/27/24 Luh Nash, HunterD [address] [facility] [place] [address] Clinical Pharmacist Pharmacy 11/24/20 03/04/22 Cathy Tee, RN [address] [place] [address] Morning Show Host (PH Nurse) Care Management 08/17/21 documented as of this encounter
--- OUTSIDE RECORDS SUMMARY | 2025-08-01 09:31 | XMS_ITS | Encounter Summary ---
Author Organization [facility] Address [address] [place] [address] Care Team Providers Care Birth Certificate Clerk Name Role Phone Romero Licea MD Primary Care Provider [phone] Shanae Zarate MD Unavailable Princess Monroy ACTIVITIES OFFICER Unavailable [phone] Luh NashD Unavailable Unavailab Cathy Givens RN Unavailable Romero Licea MD Unavailable [phone] Renee Mora DO Unavailable Unavailable Renee Mora DO Primary Care Provider Unavailabl e Reason for Visit * Reason Comments Med Refill Encounter Details Date Type Department Care Team (Late st Contact Info) Description 05/04/2019 Refill [facility] [address] [place], [place] [id number] Nirmal Huizar MD [address] [place], [place] [address] Social History Tobacco Use Types Packs/Day Years Used Date Smoking Tobacco: Never Assessed Sex and Gender Information Value Date Recorded Sex Assigned at Not on file Legal Sex Male 1:57 AM [facility] Gender Identity Not on file Sexual Orientation Not on file documented as of this encounter Plan of Treatment Not on file documented as of this encounter Visit Diagnoses Not on filedocumented in this encounter Care Teams Birth Certificate Clerk Relationship Specialty Start Date End Date Romero Licea MD PCP - General Family Medicine 06/27/19 05/27/24 Romero Licea MD [address] [place] [address] PCP - Medicare Advantage - Attributed PCP 10/09/22 07/10/23 Renee Mora DO PCP - Medicare Advantage - Attributed PCP 07/11/23 06/09/24 Renee Mora DO PCP - General Family Medicine 06/04/24 Shanae Zarate MD [address] [place] [address] Consulting Physician Cardiology 10/13/20 Princess Monroy LCSW [address] [place] [address] Real Estate Teacher Diesel Mechanic Apprentice 10/31/20 05/27/24 Luh Nash, HunterD [address] [facility] [place] [address] Clinical Pharmacist Pharmacy 11/24/20 03/04/22 Cathy Tee, RN [address] [place] [address] Spanish Lecturer (PH Nurse) Care Management 08/17/21 documented as of this encounter
--- OUTSIDE RECORDS SUMMARY | 2025-08-01 09:31 | XMS_ITS | Clinical Summary ---
Author Organization [facility] Address [address] [place] [address] Care Team Providers Care Spacecraft Systems Engineer Name Role Phone Shanae Zarate MD Unavailable Renee Mora DO Primary Care Provider Unavailabl e Allergies Active Allergy Reactions Criticality Noted Date [...] :Chronic obstructive pulmonary disease, unspecified COPD type ([facility]) INHALE 2 PUFFS EVERY FOUR HOURS NEEEDED FOR SHORTNESS OF BREATH, WHEEZING--must establish wth new PCP or be seen in this office for refills 17 g 06/06/20 24 Active Active Problems Patient Care Coordination No te Formatting of this note migh t be different from the original. 08/04/21 Submitted PA Trulicity 1.5 mg with coverbobomedabhi JIMENEZ When trying to resubmit this PA [...] - submitted cover my meds 06/16/22 (Toussaint: [email or web address]) - approved 06/02/22-06/16/23 Request #[id number] mt Problem Noted Date Diagnosed Date Type 2 diabetes mellitus wit h diabetic peripheral angiopathy without gangrene, with long-term current use of insulin 07/01/2023 Type 2 diabetes mellitus with other specified co mplication 07/01/2023 Overview (07/01/2023): With mixed hyperlipidemia Assessment & Plan (07/01/2023 1:51 PM [facility]): Diabetes is controlled. A1c up because he was off trulicity for a while but been back on it. Stable. Continue present management. Age-related osteoporosis wit hout current pathological fracture 07/26/2022 Overview (07/26/2022): DXA 07/01 right hip -3.6, left hip -3.5 Assessment & Plan (07/26/2022 10:48 AM [facility]): Recent pelvic fracture. Counseling about [...] LOVETT Assessment & Plan (07/26/2022 10:55 AM [facility]): Patient requested refill of his [...] is for him to consult with a manpower development specialist manager or even update his spine imaging. I will defer this to his pain management team. Bilateral carpal tunnel syndrome 07/26/2022 Overview (07/26/2022): EMG/NCV 07/01 Assessment & Plan (07/26/2022 10:56 AM [facility]): I will request his records [...] findings. Assessment & Plan (10/13/2020 11:44 AM MST): Condition is newly identified. Detailed treatment [...] agreement to get in touch with our [facility] team to help him get started on care, assist him to transition to burglar alarm inspector community and for healthy behaviors to manage [...] (03/11/2021 1:37 PM MST): Follow-up with his supervisor residential. Abdominal aortic atherosclerosis 06/29/2019 Overview (06/29/2019): CT [...] to stent. Advised to follow-up with his die trimmer. Benign essential HTN 06/29/2019 Assessment & Plan [...] 3TC, FTC, NVP, EFV ART 2005-: EFV/TDF/FTC. : TDF+DTG+RPV(RPV stopped while on PPI). 2018: TDF+DTG. [...] comorbidities Paroxysmal atrial fibrillation 06/29/2019 Overview (07/01/2023): [id number] Score 3 Assessment & Plan (07/01/2023 1:50 [...] (10/13/2020): Added automatically from request for surgery [id number] Resolved Problems Problem Noted Date Diagnosed Date Resolved Date Unstable gait 05/19/2022 07/26/2022 History of falling 05/19/2022 3 Malignant neoplasm of thyroid gland 08/19/2021 04/19/2022 [...] Never 07/21/2022 How often do you attend [facility] or worship services? Patient declined 07/21/2022 Do you belong to any clubs o r organizations such as confucianism groups, unions, fraternal or athletic groups, or [...] Date Recorded Depression Risk (PHQ2) Score 0 [facility] - Occupational Stress Questionnaire Answer [...] on file Legal Sex Male 1:57 AM [facility] Gender Identity Not [...] 1975 Zoster Vaccines (1 of 2) 1976 ASCVD Statin: Mod/High Intensity (w/wo Diabetes) 21-75 1978 RSV Vaccine (SCDM) (1 - Risk 50-74 years 1-dose series) 2007 COVID-19 Vaccine (3 - Moderna risk series) 12/08/2020 11/10/2020, 10/13/2020 FOBT/FIT 10/15/2021 10/15/2020 Diabetic Foot Exam 04/14/2022 04/14/2021, 1 , 04/17/2020 Diabetic Retinal Exam 04/23/2022 04/23/2021 , 04/23/2021, 04/23/2021, Additional history exists Annual Preventive Exam 07/21/2023 07/21/2022 Complete Annual HRA 07/21/2023 07/21/2022, 0 Diabetes Hemoglobin A1c 12/20/2023 06/20/20 23, 11/02/2022, 07/19/2022, Additional history exists Diabetic Proteinuria Screening 06/20/2024 06/20/2023, 11/02/2022, 07/19/2022, Additional history exists Diabetic eGFR 06/20/2024 06/20/2023 Influenza Vaccine (#1) 2025 , 04/28/2016, 04/28/2016 DTaP,Tdap,and Td Vaccines (3 - Td or Tdap) 06/30/2028 06/30/2018, 03/31/2016 Colonoscopy 08/03/2031 08/03/2021 Colorectal Cancer Screening 08/03/2031 Hepatitis C Screening Completed 07/26/2018 Pneumococcal Vaccine: 50+ Years Completed 07/21/2022, 07/26/2018, 03/31/2016 Hepatitis B Vaccines Aged Out No long er eligible based on patient's age to complete this topic Procedures Procedure Name Priority Date/Time Associated Diagnosis Comments COMPREHENSIVE METABOLIC PANEL Routine 06/20/2023 10:27 AM [facility] Medication management ALBUMIN/CREATININE RATIO, RANDOM URINE Routine 06/20/2023 10:27 AM [facility] Medication management HGB A1C WITH EAG ESTIMATION Routine 06/20/2023 10:27 AM [facility] Diabetic polyneuropathy associated with type 2 diabetes mellitus (CMS/HCC) Medication management COLONOSCOPY Routine 08/03/2021 OCCULT BLOOD X 1, STOOL Routine 10/15/2020 12:00 AM [facility] Screening for colorectal cancer HEPATITIS C VIRUS (HCV) ANTIBODY WITH REFLEX TO QUALITATIVE ISABEL Routine 07/26/2018 from Last 3 Months or Most Recently Relevant to Health Maintenance Results * (ABNORMAL) Hgb A1c with eAG Estimation (06/20/2023 10:27 AM [facility]) Hemoglobin A1c 6.2(H) 4.8 - 5.6 % [facility] Comment: Prediabetes: 5.7 - 6.4 Diabetes: >6.4 Glycemic control for adults with diabetes: <7.0 Estimated Average Glucose (EAG) 131 mg/dL [facility] Blood (Blood, Venous) 06/20/2023 10:27 AM MST 06/20/2023 10:00 PM MST Comment:Blood, Venous Narrative [facility] - 06/22/2023 3:07 PM MST Performed at: [facility] [address] [id number] Certified Nursing Attendant: Tone Stuart MD, Phone: [phone] Romero Lovett MD LAB BLOOD ORDERABLES Final Re sult Performing Organization Address [facility] de Phone Number [facility] * Microalbumin / creatinine urine ratio (06/20/2023 10:27 AM MST) Creatinine, Urine 212.0 Not Estab. mg/dL [facility] Microalbum.,U,Ra ndom 10.1 Not Estab. ug/mL [facility] Microalb/Creat Ratio 5 0 - 29 mg/g creat [facility] Comment: Normal: 0 - 29 Moderately increased: 30 - 300 Severely increased: >300 Urine (Urine, Clean Catch) 06/20/2023 10:27 AM MST 2023 3:00 AM MST Comment:Urine, Clean Catch Narrative [facility] - 2023 3:08 PM MST Performed at: - [facility] [address] [place] [id number] Certified Nursing Attendant: Tone Stuart MD, Phone: [phone] Romero Lovett MD LAB URINE ORDERABLES Final Re sult Performing Organization Address [facility] Co de Phone Number [facility] * Comprehensive metabolic panel (06/20/2023 10:27 AM MST) Glucose, Serum 81 70 - 99 mg/dL [facility] BUN 13 8 - 27 mg/dL [facility] Creatinine, Serum 1.18 0.76 - 1.27 mg/dL [facility] EGFR 68 >59 mL/min/1.73 [facility] BUN/Creatinine Ratio 11 10 - 24 [facility] Sodium, Serum 138 134 - 144 mmol/L [facility] Potassium, Serum 4.9 3.5 - 5.2 mmol/L [facility] Chloride, Serum 101 96 - 106 mmol/L [facility] Carbon Dioxide, Total 25 20 - 29 mmol/L [facility] Calcium, Serum 9.2 8.6 - 10.2 mg/dL [facility] Protein, Total, Serum 6.5 6.0 - 8.5 g/dL [facility] Albumin, Serum 4.0 3.9 - 4.9 g/dL [facility] Globulin, Total 2.5 1.5 - 4.5 g/dL [facility] A/G Ratio 1.6 1.2 - 2.2 [facility] Bilirubin, Total 0.4 0.0 - 1.2 mg/dL [facility] Alkaline Phosphatase, S 67 44 - 121 IU/L [facility] AST (SGOT) 11 0 - 40 IU/L [facility] ALT (SGPT) 8 0 - 44 IU/L [facility] Blood (Blood, Venous) 06/20/2023 10:27 AM [facility] 06/20/2023 10:00 PM [facility] Comment:Blood, Venous Narrative [facility] - 06/22/2023 3:07 PM MST Performed at: 01 - [facility] [address] [place] [id number] Certified Nursing Attendant: Tone Stuart MD, Phone: [phone] Romero Lovett MD LAB BLOOD ORDERABLES Final Re sult [facility] * Colonoscopy (08/03/2021) [facility] Colonoscopy colon polyps Historical Provider HEALTH MAINTENANCE Final Result * Occult blood x 1, stool (10/15/2020 12:00 AM [facility]) [facility] Occult Bld Immunochem Negative Negative [employer] Comment: Assay sensitivity is >95% when 50 ug Hb/g of stool is present. Clinical sensitivity for colorectal cancer is 87%, and for large adenomas is 47%, based on an evaluation of 240 individuals in a premarket commercial data set used for FDA approval. Overall, clinical specificity is 97.7%. Stool (Per Rectum) 10/15/2020 10/22/2020 7:18 PM MST Narrative [facility] - 10/15/2020 12:00 AM [facility] Time/Date of collection taken from specimen. Copy being sent to: Results Only Account [employer] Romero Lovett MD LAB BODY FLUIDS AND STOOLS OR DERABLES Edited Result - Final Performing Organization Address [facility] Co de Phone Number [facility] [address] [place] [phone] * Hepatitis C Virus (HCV) Antibody With [...] BLOOD ORDERABLES Final Re sult [facility] [address] from Last 3 Months or Most Recently Relevant to Health Maintenance Care Teams Spacecraft Systems Engineer Relationship Specialty Start Date End Date Renee Mora DO [address] [place] [address] PCP - General Family Medicine 06/04/24 Shanae Zarate MD [address] [place] [address] Consulting Physician Cardiology 10/13/20
--- OUTSIDE RECORDS SUMMARY | 2025-08-01 09:31 | XMS_ITS | Encounter Summary ---
Author Organization [facility] Address [address] [place] [address] Care Team Providers Care Body Repairer Name Role Phone Romero Licea MD Primary Care Provi clifton Shana Mike LOG SORTER Unavailable [phone] Julius Canseco MD Unavailable Encounter Details Date Type Department Care Team (Late st Contact Info) Description 08/03/2021 Procedure Pass [facility] Endoscopy [address] [place] [address] Social History Tobacco Use Types [...] on filedocumented in this encounter Care Teams Body Repairer Relationship Specialty Start Date End Date Romero Licea MD [address] [place] [address] PCP - General Family Medicine 08/03/21 Shana Mike NP [address] [place] [address] Nurse Practitioner Physical Medicine and Rehabilitation 11/15/22 Julius Canseco MD [address] [place], [place] [phone] Consulting Physician Physical Medicine and Rehabilitation 04/11/23 documented as of this encounter
--- OUTSIDE RECORDS SUMMARY | 2025-08-01 09:31 | XMS_ITS | Encounter Summary ---
Author Organization [facility] Address [address] [place] [address] Care Team Providers Care Carbon Brushes Assembler Name Role Phone Romero Licea MD Primary Care Provi clifton Shana Mike MANAGER R D Unavailable Julius Canseco MD Unavailable Encounter Details Date Type Department Care Team (Late st Contact Info) Description 02/04/2022 Procedure Pass [facility] Surgery [address] [place] [address] Social History Tobacco Use Types [...] filedocumented in this encounter Care Teams Carbon Brushes Assembler Relationship Specialty Start Date End Date Romero Licea MD [address] [place] [address] PCP - General Family Medicine 08/03/21 Shana Mike NP [address] [place], [place] [phone] Nurse Practitioner Physical Medicine and Rehabilitation 11/15/22 Julius Canseco MD [address] [place] [address] Consulting Physician Physical Medicine and Rehabilitation 04/11/23 documented as of this encounter
--- OUTSIDE RECORDS SUMMARY | 2025-08-01 09:31 | XMS_ITS | Encounter Summary ---
Author Organization [facility] Address [address] [place] [address] Care Team Providers Care Artificial Cherry Maker Name Role Phone Ubaldo Spring MD Primary Care Provider [phone] Romero Licea MD Primary Care Provi clifton Shana Mike NP Unavailable [phone] Julius Canseco MD Unavailable Encounter Details Date Type Department Care Team (Late st Contact Info) Description 09/23/2017 Procedure Pass [facility] Endoscopy [address] [place] [address] Social History Tobacco Use Types [...] on filedocumented in this encounter Care Teams Artificial Cherry Maker Relationship Specialty Start Date End Date Ubaldo [place] MD PCP - General Family Medicine 09/20/17 08/02/21 Romero Licea MD [address] [place] [address] PCP - General Family Medicine 08/03/21 Shana Mike NP [address] [place], [place] [phone] Nurse Practitioner Physical Medicine and Rehabilitation 11/15/22 Julius Canseco MD [address] [place], [place] [phone] Consulting Physician Physical Medicine and Rehabilitation 04/11/23 documented as of this encounter
--- OUTSIDE RECORDS SUMMARY | 2025-08-01 09:31 | XMS_ITS | Encounter Summary ---
Author Organization [facility] Address [address] [place] [address] Care Team Providers Care Punch Machine Operator Name Role Phone Romero Licea MD Primary Care Provi clifton Shana Mike REAL ESTATE DIRECTOR Unavailable [phone] Julius Canseco MD Unavailable Encounter Details Date Type Department Care Team (Late st Contact Info) Description 10/08/2021 Procedure Pass [facility] Surgery [address] [place] [address] Social History Tobacco Use Types Packs/Day Years Used Date Smoking Tobacco: Former Cigarettes 2 10 Smokeless Tobacco: Never Alcohol Use Standard Drinks/Week Comments No 0 (1 standard drink = 0.6 oz pur e alcohol) Sex and Gender Information Value Date Recorded Sex Assigned at Not on file Legal Sex Male 10:38 AM [facility] Gender Identity [...] on filedocumented in this encounter Care Teams Punch Machine Operator Relationship Specialty Start Date End Date Romero Licea MD [address] [place] [address] PCP - General Family Medicine 08/03/21 Shana Mike NP [address] [place] [address] Nurse Practitioner Physical Medicine and Rehabilitation 11/15/22 Julius Canseco MD [address] [place], [place] [phone] Consulting Physician Physical Medicine and Rehabilitation 04/11/23 documented as of this encounter
--- OUTSIDE RECORDS SUMMARY | 2025-08-01 09:31 | XMS_ITS | Encounter Summary ---
Author Organization [facility] Address [address] [place] [address] Care Team Providers Care Travel Journalist Name Role Phone Romero Licea MD Primary Care Provi clifton Shana Mike GRANTS AND CONTRACTS ASSISTANT Unavailable [phone] Julius Canseco MD Unavailable Encounter Details Date Type Department Care Team (Late st Contact Info) Description 04/11/2023 Procedure Pass [facility] Surgery [address] [place] [address] Social History Tobacco Use Types [...] on filedocumented in this encounter Care Teams Travel Journalist Relationship Specialty Start Date End Date Romero Licea MD [address] [place], [place] [phone] PCP - General Family Medicine 08/03/21 Shana Mike NP [address] [place], [place] [phone] Nurse Practitioner Physical Medicine and Rehabilitation 11/15/22 Julius Canseco MD [address] [place] [address] Consulting Physician Physical Medicine and Rehabilitation 04/11/23 documented as of this encounter
--- OUTSIDE RECORDS SUMMARY | 2025-08-01 09:31 | XMS_ITS | Encounter Summary ---
Author Organization [facility] Address [address] [place] [address] Care Team Providers Care Studio Set Up Worker Name Role Phone Romero Licea MD Primary Care Provi clifton Shana Mike SAS STATISTICAL PROGRAMMER Unavailable [phone] Julius Canseco MD Unavailable Encounter Details Date Type Department Care Team (Late st Contact Info) Description 04/25/2023 Procedure Pass [facility] Surgery [address] [place] [address] Social History Tobacco Use Types [...] on filedocumented in this encounter Care Teams Studio Set Up Worker Relationship Specialty Start Date End Date Romero Licea MD [address] [place], [place] [phone] PCP - General Family Medicine 08/03/21 Shana Mike NP [address] [place], [place] [phone] Nurse Practitioner Physical Medicine and Rehabilitation 11/15/22 Julius Canseco MD [address] [place] [address] Consulting Physician Physical Medicine and Rehabilitation 04/11/23 documented as of this encounter
--- OUTSIDE RECORDS SUMMARY | 2025-08-01 09:31 | XMS_ITS | Encounter Summary ---
Author Organization [facility] Address [address] [place] [address] Care Team Providers Care Environmental Health Technologist Name Role Phone Romero Licea MD Primary Care Provi clifton Shana Mike FILTERER Unavailable [phone] Julius Canseco MD Unavailable [phone] Encounter Details Date Type Department Care Team (Late st Contact Info) Description 10/22/2021 Procedure Pass [facility] Surgery [address] [place] [address] Social History Tobacco Use Types [...] on filedocumented in this encounter Care Teams Environmental Health Technologist Relationship Specialty Start Date End Date Romero Licea MD [address] [place] [address] PCP - General Family Medicine 08/03/21 Shana Mike NP [address] [place] [address] Nurse Practitioner Physical Medicine and Rehabilitation 11/15/22 Julius Canseco MD [address] [place], [place] [phone] Consulting Physician Physical Medicine and Rehabilitation 04/11/23 documented as of this encounter
--- OUTSIDE RECORDS SUMMARY | 2025-08-01 09:31 | XMS_ITS | Encounter Summary ---
Author Organization [facility] Address [address] [place] [address] Care Team Providers Care Precision Assembler Bench Name Role Phone Ubaldo Spring MD Primary Care Provider [phone] Romero Licea MD Primary Care Provi clifton Shana Mike NP Unavailable [phone] Julius Canseco MD Unavailable Encounter Details Date Type Department Care Team (Late st Contact Info) Description 09/24/2017 Procedure Pass [facility] Endoscopy [address] [place] [address] Social History Tobacco Use Types [...] on filedocumented in this encounter Care Teams Precision Assembler Bench Relationship Specialty Start Date End Date Ubaldo Spring MD PCP - General Family Medicine 09/20/17 08/02/21 Romero Licea MD [address] [place] [address] PCP - General Family Medicine 08/03/21 Shana Mike NP [address] [place], [place] [phone] Nurse Practitioner Physical Medicine and Rehabilitation 11/15/22 Julius Canseco MD [address] [place], [place] [phone] Consulting Physician Physical Medicine and Rehabilitation 04/11/23 documented as of this encounter
--- OUTSIDE RECORDS SUMMARY | 2025-08-01 09:31 | XMS_ITS | Encounter Summary ---
Author Organization [facility] Address [address] [place] [address] Care Team Providers Care Head Animal Keeper Name Role Phone Romero Licea MD Primary Care Provider [phone] Shanae Zarate MD Unavailable Princess Monroy CONVEYOR LOADER Unavailable Luh NashD Unavailable Unavailab Cathy Givens RN Unavailable Romero Licea MD Unavailable [phone] Renee Mora DO Unavailable Unavailable Renee Mora DO Primary Care Provider Unavailabl e Reason for Visit * Reason Comments Med Refill Encounter Details Date Type Department Care Team (Late st Contact Info) Description 05/25/2019 Refill [facility] [address] [place], [place] [id number] Nirmal Huizar MD [address] [place], [place] [address] Social History Tobacco Use Types Packs/Day Years Used Date Smoking Tobacco: Never Assessed Sex and Gender Information Value Date Recorded Sex Assigned at Not on file Legal Sex Male 1:57 AM [facility] Gender Identity Not on file Sexual Orientation Not on file documented as of this encounter Plan of Treatment Not on file documented as of this encounter Visit Diagnoses Not on filedocumented in this encounter Care Teams Head Animal Keeper Relationship Specialty Start Date End Date Romero Licea MD PCP - General Family Medicine 06/27/19 05/27/24 Romero Licea MD [address] [place] [address] PCP - Medicare Advantage - Attributed PCP 10/09/22 07/10/23 Renee Mora DO PCP - Medicare Advantage - Attributed PCP 07/11/23 06/09/24 Renee Mora DO PCP - General Family Medicine 06/04/24 Shanae Zarate MD [address] [place] [address] Consulting Physician Cardiology 10/13/20 Princess Monroy LCSW [address] [place] [address] Machine Maintenance Technician Clinical Psychologist Private Practice 10/31/20 05/27/24 Luh Nash, HunterD [address] [facility] [place] [address] Clinical Pharmacist Pharmacy 11/24/20 03/04/22 Cathy Tee, RN [address] [place] [address] Sweeper Driver (PH Nurse) Care Management 08/17/21 documented as of this encounter
== END 2025-05-30 00:01 | disposition home or self-care (01) ==
LOC: CF
PROVIDERS: PCP Physician Assistant; Visit Provider Physician Assistant
DX: M48.062 Spinal stenosis, lumbar region with neurogenic claudication (principal); E11.9 Type 2 diabetes mellitus without complications; E78.5 Hyperlipidemia, unspecified; I25.10 Atherosclerotic heart disease of native coronary artery without angina pectoris; M54.9 Dorsalgia, unspecified; J44.9 Chronic obstructive pulmonary disease, unspecified; Z79.4 Long term (current) use of insulin
CPT/HCPCS: 83036; 99212

== ENCOUNTER 2025-05-30 10:48 | Outpatient (AMB) | payer MEDICARE, SELFPAY ==
--- NOTE | 2025-05-30 10:54 | A.OFFPC_ITS ---
Vital Signs 05/30/25 11:00 BMI Reason not done Patient refused/unable BP 104/54 L Blood Pressure Location Rt brachial Position Sitting Respiration 14 Pulse 78 Pulse Source Pulse Oximeter Temp 98.2 F Temp Source Oral Pulse Oximetry (%) 95 Oxygen Delivery Method Room Air Intake Visit Reasons: meds Intake Note: Medication follow up. Web Development Director Required: No Allergies Seasonal Allergies Allergy (Mild, Verified 05/30/25 10:56) sneezing Tobacco use date assessed: 10/17/24 Dental Screening Dental Screen Date: 10/17/24 HPI meds HPI Details Pt is a 69 y/o male who presents today for a follow up. He has a hx of HIV, dyslipidemia, htn, CAD s/p stents, colon polyps, and t2dm. Msk: He is here today for follow up regarding his back pain with radiation down the left leg. He recently saw Neurosurgery who recommended decompression but insurance declined it. He states that they are waiting for approval. He is currently on gabapentin 600 mg 3 times a day. He thinks it does take the edge off. Pulm: Recently saw PULM for a COPD exacerbation. Has chest CT booked 06/03. H as follow up with pulmonology booked 06/19. Recently completed Pred taper. Blood sugars have remained controlled. Breathing has improved. CV: He is following with Cardiology locally. He is on lisinopril 40 mg and bp today is 104/54. He states it is because he is in pain. He is on atorvastatin 40 mg for cholesterol management. Endo: He states he is a t2dm and was dx around 1989. He is on lantus 25 units nightly, metformin 1000 mg bid, and Trulicity 3 mg weekly. No low blood sugars. His A1c is 6.9. He has his Charlie 3 here today with him and requests help applying the sensor. He does have stacey downloaded. -He has tried actos but caused hypoglyce ramila Severe osteoporosis: he was referred to endo for this and is scheduled 07/18. ID: on Biktarvy. He was dx around 2009. Following with [facility] Infectious Disease. Psych: He is on lexapro 10 mg and trazodone. tolerating trazodone well and feels that it is helpful. No SI/HI Heme: On iron and tolerating this well. Following with hematology and saw them yesterday. No note available yet. Booked with GI for a consultation as he has overdue for a colonoscopy. Uro: Following with urology for renal cysts and hematuria. Has a cystoscopy scheduled 06/13 Colonoscopy: has polyps overdue and has anemia. Scheduled for colonoscopy 06/28 [facility] Medical History (Updated 05/29/25 @ 14:34 by Bella Moreira NP) Skin cancer Anxiety with depression HIV (human immunodeficiency virus infection) Anemia Osteoporosis Renal cyst COPD (chronic obstructive pulmonary disease) CAD (coronary artery disease) PAF (paroxysmal atrial fibrillation) Weight loss Hyperlipidemia Diabetes High blood pressure Surgical History (Updated 05/29/25 @ 14:34 by Bella Moreira NP) History of open reduction and internal fixation (ORIF) procedure Hx of cholecystectomy H/O colonoscopy H/O partial thyroidectomy Hx of heart artery stent Family History Father History of quadruple bypass Lung cancer Mother No problems noted. Social History (Updated 05/29/25 @ 14:20 by Sophia Driver) Household Members: Spouse Housing: House Housing Other:: mobile home Are you a primary health care social worker to a significant other at home: No Do you presently have visiting nurse or other home services: No Alcohol intake: never Comment: using w/c due to severity of back symptoms Patient Tobacco Use Status: Never used Tobacco e-Cigarette/Vaping Use: Never Used Second Hand Smoke Exposure: Yes Substance Use Type: Marijuana service: No Current occupational status: retired and disabled Cognitive needs: No Hearing needs: Yes (Hearing aids. Did not put them in today. ) Vision needs: No Questionnaire Thrive Questionnaire Date Thrive assessed: 10/17/24 I am a: Patient What is your living situation today?: I have a steady place to live Within the past 12 months, did the food you bought not last and you didn't have the money to get more?: Sometimes True Within the past 12 months, did you worry whether your food would run out before you got money to buy more?: Sometimes True Do you have trouble paying for medicines?: Yes Do you have trouble getting transportation to medical appointments?: No Do you have trouble paying your heating and electricity bill?: Yes Do you have trouble taking care of your child, family member or friend?: No Do you have trouble with day-to-day activities such as bathing, preparing meals, shopping, managing finances, etc.?: No Are you currently unemployed and looking for a job?: No Are you interested in more education?: No Currently or been in a relationship where the following occur: No concerns reported THRIVE Score: 3 EDIS-7 AMB Questionnaire EDIS-7 Date EDIS - 7 assessed: 10/17/24 Source: Developed by Drs. Kvng Viera, Zonia Schilling, Chandra Torres and colleagues, with an educational joss from [employer]. Physical exam (Primary Care) Tobacco/Smoking Status: Tobacco use Status Tobacco use date assessed 10/17/24 05/30/25 10:55 Patient Tobacco Use Status Never used Tobacco 05/30/25 10:55 e-Cigarette/Vaping Use Never Used 05/30/25 10:55 Thrive Assessment: Date of Thrive Assessment Date Thrive assessed 10/17/24 05/30/25 10:55 Currently or been in a relationship where the following occur: No concerns reported Const Orientation/consciousness: patient oriented x3 Neck Thyroid: Thyroid normal Lymphatic: no lymphadenopathy noted Resp Auscultation: clear to auscultation bilaterally Cardio Rate: regular rate Rhythm: regular rhythm Heart sounds: S1 normal heart sound present and S2 normal heart sound present Skin General skin exam: no rashes or lesions noted Neuro General: patient oriented x3 Results AMB Hemoglobin A1c AMB Hemoglobin A1c 6.9 % Last Edit by Chasity Meneses CMA on 05/30/25 11:12 Results Reviewed Results Reviewed: Laboratory Tests 05/29/25 14:52 Sodium 138 Potassium 3.4 Chloride 103 Carbon Dioxide 28 Anion Gap 10 L BUN 11 Creatinine 1.11 Estim Creat Clear Calc 64.5 Estimated GFR > 60 Random Glucose 124 H Calcium 9.0 Laboratory Tests 05/29/25 14:52 WBC 5.2 RBC 4.34 L Hgb 13.3 L Hct 39.0 L Plt Count 242 Coding Level of Care Code Est Pt Level 4 (87382) Complex EM visit Add On G2211 Diagnoses Lumbar stenosis with neurogenic claudication M48.062 Type 2 diabetes mellitus, with long-term current use of insulin E11.9; Z79.4 COPD (chronic obstructive pulmonary disease) J44.9 Assessment & Plan Assessment & Plan (1) Lumbar stenosis with neurogenic claudication: Code(s): M48.062 - Spinal stenosis, lumbar region with neurogenic claudication Category: Medical Plan: Increase gabapentin to 900 mg 3 times a day He is still very limited with his back. He will let me know if anything changes with the plan from Neurosurgery. (2) Type 2 diabetes mellitus, with long-term current use of insulin: Code(s): E11.9 - Type 2 diabetes mellitus without complications; Z79.4 - rn long term care (current) use of insulin Category: Medical Plan: Applied sensor today in the office. Did have a hard time getting it to scan. He was going to restart his phone and try at home. They will let me know if any issues with this and I can send in a reader. A1c is 6.9. We will continue current regimen. He had multiple rounds of steroids recently. Blood sugars are normalizing. (3) COPD (chronic obstructive pulmonary disease): Code(s): J44.9 - Chronic obstructive pulmonary disease, unspecified Category: Medical Plan: Stable/improved. Orders: Orders AMB Hemoglobin A1c Today E11.9 - Type 2 diabetes mellitus without complications, Z79.4 - rn long term care (current) use of insulin Medications: Changed From gabapentin 600 mg (2 x 300 mg) PO TID 30 days 180 caps 11RF To gabapentin 900 mg (3 x 300 mg) PO TID 270 caps 11RF 30 days
[2025-05-30 11:00] VITALS: BP 104/54; PULSE 78; RESP 14; TEMP 36.8; O2SAT 95
== END 2025-05-30 11:29 | disposition home or self-care (01) ==
LOC: HO.HMCFM 10:49
PROVIDERS: PCP Physician Assistant; Visit Provider Physician Assistant
DX: M48.062 Spinal stenosis, lumbar region with neurogenic claudication (principal); E11.9 Type 2 diabetes mellitus without complications; Z79.4 Long term (current) use of insulin; J44.9 Chronic obstructive pulmonary disease, unspecified

== ENCOUNTER 2025-06-03 09:37 | Outpatient (REF) | payer MEDICARE, SELFPAY ==
--- OUTSIDE RECORDS SUMMARY | 2022-12-21 19:00 | XMS_ITS | Continuity of Care Document ---
Author Organization [facility] ter Address [address] [facility] [place] [address] Phone Care Team Providers Care Electrical Troubleshooter Name Role Phone Unavailable Unavailable Unavailable Medications Medication Instructions Dosage Effective Dates (start - stop) Status Comments BIKTARVY 50 MG-200 MG-25 MG TABLET - Active TRULICITY 1.5 MG/0.5 ML SUBCUTANEOUS PEN INJECTOR - Active METOPROLOL SUCCINATE ER 25 MG TABLET,EXTENDED RELEASE 24 HR - Active GABAPENTIN 300 MG CAPSULE - Acti ve ASPIRIN 81 MG TABLET,DELAYED RELEASE - Active PIOGLITAZONE 45 MG TABLET - Acti ve ATORVASTATIN 40 MG TABLET - Acti ve LISINOPRIL 40 MG TABLET - Active BLOOD SUGAR DIAGNOSTIC STRIPS - Active ALBUTEROL SULFATE HFA 90 MCG/ACTUATION AEROSOL INHALER - Active METFORMIN 1,000 MG TABLET - Acti ve IPRATROPIUM-ALBUTEROL 0.5-2.5 (3) MG/3ML IN SOLN - Active LANTUS SOLOSTAR U-100 INSULIN 100 UNIT/ML (3 ML) SUBCUTANEOUS PEN - Active HYDROCODONE 10 MG-ACETAMINOPHEN 325 MG TABLET - Active ESCITALOPRAM 10 MG TABLET - Acti ve TIOTROPIUM BROMIDE 18 MCG CAPSULE WITH INHALATION DEVICE - Active ALENDRONATE 70 MG TABLET - Activ e Advance Directives Directive Yes / No Effective Date File Name No Information Encounters Encounter Description Practice Location Reason(s) For Visit Diagnoses Date Provider [facility], [address] [place] [address] [place], [id number], tel:[phone] Conversion Location [facility] No Information No Information [facility], [facility] [address] [place], [id number], tel:[phone] Conversion Location [place] Type 2 diabetes mellitus with mild nonproliferative diabetic retinopathy without macular edema, left eyeType 2 diabetes mellitus with mild nonproliferative diabetic retinopathy without macular edema, left eye Oct-1 1 [address] [address]. [address] [address], [place], [place], [id number], [place]. tel:[phone] Family History Family Member Type Diagnosis Age At Onset No Information Payers Payer name Insurance type Covered republican ID Authoriza tion(s) No Information Social History Type Description Quantity Date Captured Comments Sex Male Smoking Status No Information Chief Complaint And Reason For Visit No Information History Of Present Illness Encounter Date Complaint History Of Prese nt Illness No Information Instructions Date Instruction Additional Infor mation No Information Assessments Type Assessment Date No Information
--- NOTE | ~2025-06-03 | CT_ITS ---
EXAMINATION: CT CHEST WITHOUT IV CONTRAST INDICATION: Z21 - Asymptomatic human immunodeficiency virus [HIV] infection status COMPARISON: Previous chest x-ray April 2025 TECHNIQUE: Helical CT scan of the chest was performed without intravenous contrast. Coronal and sagittal reformatted images were generated and reviewed. This CT exam was performed with one or more of the following dose reduction techniques: automated exposure control, adjustment of the mA and/or kV according to patient size, use of iterative reconstruction technique. DLP: 195 mGy-cm CHEST: THYROID: No thyroid nodules. Small calcifications or surgical clips adjacent to the thyroid gland. LUNGS: Mild paraseptal emphysema. Scattered areas of bronchial wall thickening. There 6 mm slightly irregular spiculated left upper lobe nodule adjacent to bronchial wall thickening axial image 167 series 6. This is adjacent linear subsegmental atelectasis. Similar appearing 3 x 5 mm right upper lobe nodule adjacent to the area of bronchiectasis and linear scarring axial image 142 series 6. Small micronodules largest in 3 mm calcified left upper lobe nodule axial image 155 series 6. Small left lower lobe cyst measuring 1.5 cm axial image 389 series 6. MEDIASTINUM: Small mediastinal lymph nodes. No enlarged lymph nodes. SHAUN: Evaluation of the hilar regions is limited by lack of intravenous contrast material. There are small bilateral supraclavicular lymph nodes. CARDIOVASCULATURE: The heart is normal in size. There is a trace pericardial effusion. The thoracic aorta is upper normal in size. DEGREE OF CORONARY CALCIFICATION: severe PLEURA: There is no pleural effusion. No pneumothorax. MAIN AIRWAYS: The mainstem bronchi and proximal branches are patent. AXILLA: There is no axillary lymphadenopathy. No chest wall mass. BONES AND SOFT TISSUES: There is a foreign body in the left anterior chest wall suggestive of a BB. Degenerative changes of the spine. Slight loss of height of the T8 vertebral body questionable for old mild compression fracture. Old right 12th rib fracture. UPPER ABDOMEN: Atherosclerotic disease. 2 low attenuation right renal lesions probably representing cysts. Spleen not completely visualized but may be prominent. CT/CT chest wo IV con IMPRESSION: Mild paraseptal emphysema. Scattered areas of bronchial wall thickening. Bilateral upper lobe nodules largest measuring 6 mm in the left upper lobe adjacent to areas of bronchial wall thickening and linear scarring or subsegmental atelectasis. Severe coronary artery calcification. Fleischner Criteria for pulmonary nodule follow-up SOLID NODULES: Low risk patient: <6mm: no follow-up 6-8mm: 6 month follow-up CT >8mm: PET/Biopsy/ 3 month follow-up CT High risk patient: <6mm: 12 month follow-up CT 6-8mm: 6 month follow-up CT >8mm: PET/Biopsy/ 3 month follow-up CT SUB-SOLID/GROUNDGLASS NODULES: All patients: > or = 6mm: 6 month follow-up CT *Please note that in patients in the following categories, the Fleischner criteria do not apply: Immunocompromised, lung cancer screening population, age below 35, and patients with known malignancy Electronically signed by: Gay Avina MD 06/03/2025 10:48 AM [facility]
--- OUTSIDE RECORDS SUMMARY | 2025-06-03 11:10 | XMS_ITS | Encounter Summary ---
Author Organization [facility] Address [address] [place] [address] Care Team Providers Care Mate First Name Role Phone Romero Licea MD Primary Care Provider Shanae Zarate MD Unavailable Princess Monroy CVIR TECH Unavailable Luh NashD Unavailable Cathy Tee RN Unavailable Romero Licea MD Unavailable Renee Mora DO Unavailable Renee Mora DO Primary Care Provider Reason for Visit * Reason Comments Med Refill Encounter Details Date Type Department Care Team (Late st Contact Info) Description 05/25/2019 Refill [facility] [address] [place], [place] [address] Nirmal Huizar MD [address] [place] [address] Social History Tobacco Use Types Packs/Day Years [...] on filedocumented in this encounter Care Teams Mate First Relationship Specialty Start Date End Date Romero Licea MD PCP - General Family Medicine 06/27/19 05/27/24 Romero Licea MD [address] [place] [address] PCP - Medicare Advantage - Attributed PCP 10/09/22 07/10/23 Renee Mora DO [address] [place] [address] PCP - Medicare Advantage - Attributed PCP 07/11/23 06/09/24 Renee Mora DO [address] [place] [address] PCP - General Family Medicine 06/04/24 Shanae Zarate MD [address] [facility] [address] Consulting Physician Cardiology 10/13/20 Princess Monroy LCSW [address] [place] [address] Funeral Home Attendant Nursing Clerk 10/31/20 05/27/24 Luh Nash, HunterD [address] [place] [address] Clinical Pharmacist Pharmacy 11/24/20 03/04/22 Cathy Tee, KAMERON [address] [place] [address] [facility] [place] [address] Environmental Health Safety Manager ( Nurse) Care Management 08/17/21 documented as of this encounter
--- OUTSIDE RECORDS SUMMARY | 2025-06-03 11:10 | XMS_ITS | Encounter Summary ---
Author Organization [facility] Address [address] [place] [address] Care Team Providers Care Sales Office Administrator Name Role Phone Ubaldo Spring MD Primary Care Provider [phone] Romero Licea MD Primary Care Provi clifton Shana Mike NP Unavailable [phone] Julius Canseco MD Unavailable Encounter Details Date Type Department Care Team (Late st Contact Info) Description 09/24/2017 Procedure Pass [facility] Endoscopy [address] [place] [address] Social History Tobacco Use Types [...] filedocumented in this encounter Care Teams Sales Office Administrator Relationship Specialty Start Date End Date Ubaldo Spring MD PCP - General Family Medicine 09/20/17 08/02/21 Romero Licea MD [address] [place] [address] PCP - General Family Medicine 08/03/21 Shana Mike NP [address] [place], [place] [id number] Nurse Practitioner Physical Medicine and Rehabilitation 11/15/22 Julius Canseco MD [address] [place], [place] [id number] Consulting Physician Physical Medicine and Rehabilitation 04/11/23 documented as of this encounter
--- OUTSIDE RECORDS SUMMARY | 2025-06-03 11:10 | XMS_ITS | Encounter Summary ---
Author Organization [facility] Address [address] [place] [address] Care Team Providers Care Database Management System Specialist Name Role Phone Shanae Zarate MD Unavailable Renee Mora DO Primary Care Provider [phone] Reason for Visit * Reason Comments Med Refill Encounter Details Date Type Department Care Team (Late st Contact Info) Description 06/23/2024 Refill [facility] [address] [place] [address] [place] [address] [place] [address] [address] [place] [address] Diabetic polyneuropathy associated with type 2 diabetes mellitus ([facility]/HCC) Social History Tobacco Use Types [...] How often do you attend chur or temple services? Patient declined 07/21/2022 Do you belong to any clubs o r organizations such as worship groups, unions, fraternal or athletic groups, or [...] Date Recorded Depression Risk (PHQ2) Score 0 [facility] - Occupational Stress Questionnaire Answer [...] documented as of this encounter Care Teams Database Management System Specialist Relationship Specialty Start Date End Date Renee Mora DO [address] [place], [place] [id number] PCP - General Family Medicine 06/04/24 Shanae Zarate MD [address] [place] [address] [place] [address] Consulting Physician Cardiology 10/13/20 documented as of this encounter
--- OUTSIDE RECORDS SUMMARY | 2025-06-03 11:10 | XMS_ITS | Encounter Summary ---
Author Organization [facility] Address [address] [place] [address] Care Team Providers Care Baseball Inspector And Repairer Name Role Phone Romero Licea MD Primary Care Provi clifton Shana Mike COILER Unavailable [phone] Julius Canseco MD Unavailable Encounter Details Date Type Department Care Team (Late st Contact Info) Description 10/22/2021 Procedure Pass [facility] Surgery [address] [place] [address] Social History Tobacco Use Types [...] on filedocumented in this encounter Care Teams Baseball Inspector And Repairer Relationship Specialty Start Date End Date Romero Licea MD [address] [place] [address] PCP - General Family Medicine 08/03/21 Shana Mike NP [address] [place] [address] Nurse Practitioner Physical Medicine and Rehabilitation 11/15/22 Julius Canseco MD [address] [place], [place] [id number] Consulting Physician Physical Medicine and Rehabilitation 04/11/23 documented as of this encounter
--- OUTSIDE RECORDS SUMMARY | 2025-06-03 11:10 | XMS_ITS | Encounter Summary ---
Author Organization [facility] Address [address] [place] [address] Care Team Providers Care Systems Planner Name Role Phone Shanae Zarate MD Unavailable Renee Mora DO Primary Care Provider [phone] Reason for Visit * Reason Comments Med Refill Encounter Details Date Type Department Care Team (Late st Contact Info) Description 07/15/2024 Refill [facility] Practice [address] [facility] [address] [place], [place] [id number] Gay Rosario MD [address] [facility] [address] [place], [place] [id number] Diabetic polyneuropathy associated with type 2 diabetes mellitus ([facility]/HCC) Social History Tobacco Use Types Packs/Day [...] often do you attend chur ch or sikh services? Patient declined 07/21/2022 Do you belong to any clubs o r organizations such as yazdanism groups, unions, fraternal or athletic groups, or [...] Risk (PHQ2) Score 0 [facility] - Occupational Stress Questionnaire Answer [...] place to sleep or slept in a halfway (including now)? No 07/21/2022 Sex and Gender [...] documented as of this encounter Care Teams Systems Planner Relationship Specialty Start Date End Date Renee Mora DO [address] [place] [address] PCP - General Family Medicine 06/04/24 Shanae Zarate MD [address] [place] [address] Consulting Physician Cardiology 10/13/20 documented as of this encounter
--- OUTSIDE RECORDS SUMMARY | 2025-06-03 11:10 | XMS_ITS | Encounter Summary ---
Author Organization [facility] Address [address] [place] [address] Care Team Providers Care Refrigerating Engineer Head Name Role Phone Romero Licea MD Primary Care Provi clifton Shana Mike FINISH SAW OPERATOR Unavailable [phone] Julius Canseco MD Unavailable Encounter Details Date Type Department Care Team (Late st Contact Info) Description 01/21/2022 Procedure Pass [facility] Surgery [address] [place] [address] Social History Tobacco Use Types [...] on filedocumented in this encounter Care Teams Refrigerating Engineer Head Relationship Specialty Start Date End Date Romero Licae MD [address] [place] [address] PCP - General Family Medicine 08/03/21 Shana Mike NP [address] [place], [place] [id number] Nurse Practitioner Physical Medicine and Rehabilitation 11/15/22 Julius Canseco MD [address] [place] [address] Consulting Physician Physical Medicine and Rehabilitation 04/11/23 documented as of this encounter
--- OUTSIDE RECORDS SUMMARY | 2025-06-03 11:10 | XMS_ITS | Encounter Summary ---
Author Organization [facility] Address [address] [place] [address] Care Team Providers Care Internet E Commerce Specialist Name Role Phone Romero Licea MD Primary Care Provi clifton Shana Mike HOUSING MANAGEMENT OFFICER Unavailable Julius Canseco MD Unavailable Encounter Details Date Type Department Care Team (Late st Contact Info) Description 02/04/2022 Procedure Pass [facility] Surgery [address] [place] [address] Social History Tobacco Use Types Packs/Day Years Used Date Smoking Tobacco: Former Cigarettes 2 10 Smokeless Tobacco: Never Alcohol Use Standard Drinks/Week Comments No 0 (1 standard drink = 0.6 oz pur e alcohol) Sex and Gender Information Value Date Recorded Sex Assigned at Not on file Legal Sex Male 10:38 AM [facility] Gender [...] on filedocumented in this encounter Care Teams Internet E Commerce Specialist Relationship Specialty Start Date End Date Romero Licea MD [address] [place] [address] PCP - General Family Medicine 08/03/21 Shana Mike NP [address] [place], [place] [id number] Nurse Practitioner Physical Medicine and Rehabilitation 11/15/22 Julius Canseco MD [address] [place] [address] Consulting Physician Physical Medicine and Rehabilitation 04/11/23 documented as of this encounter
--- OUTSIDE RECORDS SUMMARY | 2025-06-03 11:10 | XMS_ITS | Encounter Summary ---
Author Organization [facility] Address [address] [place] [address] Care Team Providers Care Site Manager Name Role Phone Romero Licea MD Primary Care Provi clifton Shana Mike RADIO MACHINIST Unavailable [phone] Julius Canseco MD Unavailable Encounter Details Date Type Department Care Team (Late st Contact Info) Description 10/08/2021 Procedure Pass [facility] Surgery [address] [place] [address] Social History Tobacco Use Types [...] on filedocumented in this encounter Care Teams Site Manager Relationship Specialty Start Date End Date Romero Licea MD [address] [place] [address] PCP - General Family Medicine 08/03/21 Shana Mike NP [address] [place] [address] Nurse Practitioner Physical Medicine and Rehabilitation 11/15/22 Julius Canseco MD [address] [place], [place] [id number] Consulting Physician Physical Medicine and Rehabilitation 04/11/23 documented as of this encounter
--- OUTSIDE RECORDS SUMMARY | 2025-06-03 11:10 | XMS_ITS | Encounter Summary ---
Author Organization [facility] Address [address] [place] [address] Care Team Providers Care Manager Financial Name Role Phone Romero Licea MD Primary Care Provi clifton Shana Mike CAMPUS AMBASSADOR Unavailable [phone] Julius Canseco MD Unavailable Encounter Details Date Type Department Care Team (Late st Contact Info) Description 08/03/2021 Procedure Pass [facility] Endoscopy [address] [place] [address] Social History Tobacco Use Types [...] filedocumented in this encounter Care Teams Manager Financial Relationship Specialty Start Date End Date Romero Licea MD [address] [place] [address] PCP - General Family Medicine 08/03/21 Shana Mike NP [address] [place] [address] Nurse Practitioner Physical Medicine and Rehabilitation 11/15/22 Julius Canseco MD [address] [place], [place] [id number] Consulting Physician Physical Medicine and Rehabilitation 04/11/23 documented as of this encounter
--- OUTSIDE RECORDS SUMMARY | 2025-06-03 11:10 | XMS_ITS | Encounter Summary ---
Author Organization [facility] Address [address] [place] [address] Care Team Providers Care Rod Placer Name Role Phone Romero Licea MD Primary Care Provider Shanae Zarate MD Unavailable Princess Monroy OPTICAL ENGINEER Unavailable [phone] Luh NashD Unavailable Cathy Tee RN Unavailable Romero Licea MD Unavailable Renee Mora DO Unavailable Renee Mora DO Primary Care Provider Reason for Visit * Reason Comments Med Refill Encounter Details Date Type Department Care Team (Late st Contact Info) Description 05/04/2019 Refill [facility] [address] [place], [place] [address] Nirmal Huizar MD [address] [place] [address] Social History Tobacco Use Types Packs/Day Years [...] on filedocumented in this encounter Care Teams Rod Placer Relationship Specialty Start Date End Date Romero Licea MD PCP - General Family Medicine 06/27/19 05/27/24 Romero Licea MD [address] [place] [address] PCP - Medicare Advantage - Attributed PCP 10/09/22 07/10/23 Renee Mora DO [address] [place] [address] PCP - Medicare Advantage - Attributed PCP 07/11/23 06/09/24 Renee Mora DO [address] [place] [address] PCP - General Family Medicine 06/04/24 Shanae Zarate MD [address] [facility] [address] Consulting Physician Cardiology 10/13/20 Princess Monroy LCSW [address] [place] [address] Contact Center Manager Technology Sales Representative 10/31/20 05/27/24 Luh Nash, HunterD [address] [address] [place] [address] Clinical Pharmacist Pharmacy 11/24/20 03/04/22 Cathy Tee, KAMERON [address] [place] [address] [place] [address] Staff Forester ( Nurse) Care Management 08/17/21 documented as of this encounter
--- OUTSIDE RECORDS SUMMARY | 2025-06-03 11:10 | XMS_ITS | Encounter Summary ---
Author Organization [facility] Address [address] [place] [address] Care Team Providers Care C Software Engineer Name Role Phone Romero Licea MD Primary Care Provider Shanae Zarate MD Unavailable Princess Monroy REVENUE CYCLE ANALYST Unavailable [phone] Luh NashD Unavailable Cathy Tee RN Unavailable Romero Licea MD Unavailable Renee Mora DO Unavailable Renee Mora DO Primary Care Provider Reason for Visit * Reason Comments Med Refill Encounter Details Date Type Department Care Team (Late st Contact Info) Description 06/27/2019 Refill [facility] [address] [place], [place] [address] Nirmal Huizar MD [address] [place] [address] Social History Tobacco Use Types Packs/Day Years [...] on filedocumented in this encounter Care Teams C Software Engineer Relationship Specialty Start Date End Date Romero Licea MD PCP - General Family Medicine 06/27/19 05/27/24 Romero Licea MD [address] [place] [address] PCP - Medicare Advantage - Attributed PCP 10/09/22 07/10/23 Renee Mora DO [address] [place] [address] PCP - Medicare Advantage - Attributed PCP 07/11/23 06/09/24 Renee Mora DO [address] [place] [address] PCP - General Family Medicine 06/04/24 Shanae Zarate MD [address] [place] [address] Consulting Physician Cardiology 10/13/20 Princess Monroy LCSW [address] [place] [address] .Net Programmer Wet Finisher Wool 10/31/20 05/27/24 Luh Nash, HunterD [address] [place] [address] Clinical Pharmacist Pharmacy 11/24/20 03/04/22 Cathy Tee, KAMERON [address] [place] [address] [place] [address] Emergency Worker ( Nurse) Care Management 08/17/21 documented as of this encounter
--- OUTSIDE RECORDS SUMMARY | 2025-06-03 11:10 | XMS_ITS | Clinical Summary ---
Author Organization [facility] Address [address] [place] [address] Care Team Providers Care Extrusion Die Repair Manager Name Role Phone Shanae Zarate MD Unavailable Renee Mora DO Primary Care Provider [phone] Allergies Active Allergy Reactions Criticality Noted Date [...] - submitted cover my meds 06/16/22 (Toussaint: [id number]) - approved 06/02/22-06/16/23 Request #[id number] nv Problem Noted Date Diagnosed Date Type 2 diabetes mellitus wit h diabetic peripheral angiopathy without gangrene, with long-term current use of insulin 07/01/2023 Type 2 diabetes mellitus with other specified co mplication 07/01/2023 Overview (07/01/2023): With mixed hyperlipidemia Assessment & Plan (07/01/2023 1:51 PM [facility]): Diabetes is controlled. A1c up because he was off trulicity for a while but been back on it. Stable. Continue present management. Age-related osteoporosis wit hout current pathological fracture 07/26/2022 Overview (07/26/2022): DXA 07/01 right hip -3.6, left hip -3.5 Assessment & Plan (07/26/2022 10:48 AM [facility]): Recent pelvic fracture. Counseling about osteopenia/osteoporosis. Discussed [...] LOVETT Assessment & Plan (07/26/2022 10:55 AM [facility]): Patient requested refill of his pain medication. [...] is for him to consult with a collateral specialist or even update his spine imaging. I will defer this to his pain management team. Bilateral carpal tunnel syndrome 07/26/2022 Overview (07/26/2022): EMG/NCV 07/01 Assessment & Plan (07/26/2022 10:56 AM [facility]): I will request his records from Dr. [...] findings. Assessment & Plan (10/13/2020 11:44 AM [facility]): Condition is newly identified. 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 Abdominal aortic atherosclerosis 06/29/2019 Overview (06/29/2019): CT [...] to stent. Advised to follow-up with his service operations manager. Benign essential HTN 06/29/2019 Assessment & Plan [...] comorbidities Paroxysmal atrial fibrillation 06/29/2019 Overview (07/01/2023): [id number] Score 3 Assessment & Plan (07/01/2023 1:50 [...] (10/13/2020): Added automatically from request for surgery [id number] Resolved Problems Problem Noted Date Diagnosed Date [...] Never 07/21/2022 How often do you attend [facility] or tenriism services? Patient declined 07/21/2022 Do you belong to any clubs o r organizations such as pentecostalism groups, unions, fraternal or athletic groups, or [...] Score 0 [facility] - Occupational Stress Questionnaire Answer Date [...] place to sleep or slept in a snf (including now)? No 07/21/2022 Sex and Gender Information Value Date Recorded Sex Assigned at Not on file Legal Sex Male 1:57 AM [facility] Gender Identity Not on file [...] Body Mass Index 27.67 07/21/2022 1:37 PM [facility] Plan of Treatment Health Maintenance Due Date [...] X 1, STOOL Routine 10/15/2020 12:00 AM [facility] Screening for colorectal cancer HEPATITIS C VIRUS (HCV) ANTIBODY WITH REFLEX TO QUALITATIVE ISABEL Routine 07/26/2018 from Last 3 Months or Most Recently Relevant to Health Maintenance Results * Colonoscopy (08/03/2021) [facility] Colonoscopy colon polyps Historical Provider HEALTH MAINTENANCE Final Result * Occult blood x 1, stool (10/15/2020 12:00 AM [facility]) [facility] Occult Bld Immunochem Negative Negative [employer] Comment: Assay sensitivity is >95% when 50 ug Hb/g of stool is present. Clinical sensitivity for colorectal cancer is 87%, and for large adenomas is 47%, based on an evaluation of 240 individuals in a premarket commercial data set used for FDA approval. Overall, clinical specificity is 97.7%. Stool (Per Rectum) 10/15/2020 10/22/2020 7:18 PM [facility] Narrative [facility] - 10/15/2020 12:00 AM [facility] Time/Date of collection taken from specimen. Copy being sent to: Results Only Account [employer] Romero Lovett MD LAB BODY FLUIDS AND STOOLS OR DERABLES Edited Result - Final [employer] [address] [place] [address] * Hepatitis C Virus (HCV) Antibody With Reflex to Qualitative ISABEL (07/26/2018) [facility] HCV Ab 0.08 <=0.79 Index [facility] Hepatitis C Ab Nonreactive Nonreactive F [facility] Comment: Performance characteristics of [...] Final Re sult [facility] Anywhere [address] from Last 3 Months or Most Recently Relevant to Health Maintenance Care Teams Extrusion Die Repair Manager Relationship Specialty Start Date End Date Renee Mora DO [address] [place] [address] PCP - General Family Medicine 06/04/24 Shanae Zarate MD [address] [place] [address] Consulting Physician Cardiology 10/13/20
--- OUTSIDE RECORDS SUMMARY | 2025-06-03 11:10 | XMS_ITS | Encounter Summary ---
Author Organization [facility] Address [address] [place] [address] Care Team Providers Care Stonework Tracer Name Role Phone Ubaldo Spring MD Primary Care Provider [phone] Romero Licea MD Primary Care Provi clifton Shana Mike NP Unavailable [phone] Julius Canseco MD Unavailable Encounter Details Date Type Department Care Team (Late st Contact Info) Description 09/23/2017 Procedure [address] [facility] Endoscopy [address] [place] [address] Social History Tobacco Use Types [...] on filedocumented in this encounter Care Teams Stonework Tracer Relationship Specialty Start Date End Date Ubaldo Spring MD PCP - General Family Medicine 09/20/17 08/02/21 Romero Licea MD [address] [place] [address] PCP - General Family Medicine 08/03/21 Shana Mike NP [address] [place], [place] [id number] Nurse Practitioner Physical Medicine and Rehabilitation 11/15/22 Julius Canseco MD [address] [place], [place] [id number] Consulting Physician Physical Medicine and Rehabilitation 04/11/23 documented as of this encounter
--- OUTSIDE RECORDS SUMMARY | 2025-06-03 11:14 | XMS_ITS | Clinical Summary ---
Author Organization [facility] Address [address] [place] [address] Care Team Providers Care Bobbin Sorter Name Role Phone Romero Licea MD Primary Care Provi clifton Shana Mike NP Unavailable [phone] Julius Canseco MD Unavailable Allergies No known [...] (10/06/2021): Added automatically from request for surgery [id number] Lumbar radiculopathy 10/05/2021 Overview (10/05/2021): Added automatically from request for surgery [id number] Fever 09/23/2017 Asthma 09/21/2017 HIV (human immunodeficiency virus infection) COPD (chronic obstructive pulmonary disease) Hypertension 09/21/2017 Polycythemia 09/21/2017 Hyponatremia 09/21/2017 Dehydration 09/20/[address] scan, stomach 09/20/2017 Overview (09/23/2017): Added automatically from request for surgery [id number] Social History Tobacco Use Types Packs/Day Years [...] 2007 COVID-19 Vaccine (#1) 11/10/2020 11/10/2020, 021 Abdominal [...] abdomen pelvis with contrast (09/21/2017 8:44 PM [facility]) Anatomical Region Laterality Modality Abdomen, [...] AM [facility] 09/21/2017 4:57 AM MST Narrative [facility] - 09/21/2017 9:55 AM [facility] The [place] Diabetes Association (ADA) guidelines for interpreting Hemoglobin A1C are as follows: Non-Diabetic patient: <5.7% Increased risk for future Diabetes: 5.7-6.4% ADA diagnostic criteria for Diabetes: >6.4% Values for patients with Diabetes: Result <7.0%: Meets ADA's recommendation goal for therapy. Result 7.0-8.0%: Exceeds ADA's recommended goal. Result >8.0%: ADA recommends reevaluation of therapy. us Dre Perez MD LAB BLOOD ORDERABLES Bess chavez Result [facility] [address] [id number], [facility] [phone] from Last 3 Months or Most Recently Relevant to Health Maintenance Insurance [facility] MEDICARE ADVANTAGE [facility] MEDICARE ADVANTAGE [employer] MEDICARE ADVANTAGE CIGNA MEDICARE ADVANTAGE Advance Directives For more information, please contact: [phone] * Full Code (Latest Code Status on File) Date Activated Date Inactivated Comments 09/20/2017 8:25 PM 09/26/2017 4:14 PM Care Teams Bobbin Sorter Relationship Specialty Start Date End Date Romero Licea MD [address] [place] [address] PCP - General Family Medicine 08/03/21 Shana Mike NP [address] [place] [address] Nurse Practitioner Physical Medicine and Rehabilitation 11/15/22 Julius Canseco MD [address] [place] [address] Consulting Physician Physical Medicine and Rehabilitation 04/11/23
--- OUTSIDE RECORDS SUMMARY | 2025-06-03 11:14 | XMS_ITS | Encounter Summary ---
Author Organization [facility] Address [address] [place] [address] Care Team Providers Care Boot And Saddle Repair Person Name Role Phone Romero Licea MD Primary Care Provi clifton Shana Mike PNEUMATIC JACK OPERATOR Unavailable [phone] Julius Canseco MD Unavailable [phone] Encounter Details Date Type Department Care Team (Late st Contact Info) Description 04/11/2023 Procedure Pass [facility] Surgery [address] [place] [address] Social History Tobacco Use Types [...] on filedocumented in this encounter Care Teams Boot And Saddle Repair Person Relationship Specialty Start Date End Date Romero Licea MD [address] [place], [place] [phone] PCP - General Family Medicine 08/03/21 Shana Mike NP [address] [place], [place] [phone] Nurse Practitioner Physical Medicine and Rehabilitation 11/15/22 Julius Canseco MD [address] [place] [address] Consulting Physician Physical Medicine and Rehabilitation 04/11/23 documented as of this encounter
--- OUTSIDE RECORDS SUMMARY | 2025-06-03 11:14 | XMS_ITS | Encounter Summary ---
Author Organization [facility] Address [address] [place] [address] Care Team Providers Care Property Management Accountant Name Role Phone Romero Licea MD Primary Care Provi clifton Shana Mike PBX SUPERVISOR Unavailable [phone] Julius Canseco MD Unavailable Encounter Details Date Type Department Care Team (Late st Contact Info) Description 04/25/2023 Procedure Pass [facility] Surgery [address] [place] [address] Social History Tobacco Use Types [...] on filedocumented in this encounter Care Teams Property Management Accountant Relationship Specialty Start Date End Date Romero Licea MD [address] [place], [place] [id number] PCP - General Family Medicine 08/03/21 Shana Mike NP [address] [place], [place] [phone] Nurse Practitioner Physical Medicine and Rehabilitation 11/15/22 Julius Canseco MD [address] [place] [address] Consulting Physician Physical Medicine and Rehabilitation 04/11/23 documented as of this encounter
== END 2025-06-03 09:38 | disposition home or self-care (01) ==
LOC: HO.CT 09:37
PROVIDERS: PCP Physician Assistant; Visit Provider Nurse Practitioner Family
DX: R05.3 Chronic cough (principal); Z21 Asymptomatic human immunodeficiency virus [HIV] infection status; Z87.01 Personal history of pneumonia (recurrent)
CPT/HCPCS: 71250

== ENCOUNTER → 2025-06-03 09:39 | Outpatient (BNV) | payer MEDICARE, SELFPAY | PROVIDERS: PCP Physician Assistant; Visit Provider Radiology Diagnostic Radiology | DX: Z21 Asymptomatic human immunodeficiency virus [HIV] infection status (principal); J43.9 Emphysema, unspecified; R91.1 Solitary pulmonary nodule; I25.84 Coronary atherosclerosis due to calcified coronary lesion | CPT/HCPCS: 71250 ==

== ENCOUNTER 2025-06-13 11:05 | Outpatient (AMB) | payer MEDICARE, SELFPAY ==
--- NOTE | 2025-06-13 11:11 | A.OFFVIS_ITS ---
Intake Visit Reasons: Cysto SET UA Intake Note: Patient is present for Cystoscopy Urology Rx: none Blood Thinners:Aspirin Imaging completed: none LAST PVR:13 mls Smoker: yes Marijuana, Labs done 04/12/25 Cytology cystoscopy scope Lot# [id number] exp 12/18/2027 Orthopedic Physical Therapist Required: No Accompanied by: Spouse Allergies Seasonal Allergies Allergy (Mild, Verified 06/13/25 11:12) sneezing HPI Comments Details: Kvng is a pleasant male. He is a patient of Dr. Bermudez. He is seen for the following urologic conditions - microscopic hematuria Cystoscopy inflamed trigone 12 month follow-up Microscopic hematuria Microscopic hematuria was diagnosed during - PCP visit They are here for the - follow-up evaluation Since the last visit the patient has - has not noticed gross hematuria continues to test positive on dipstick Relevant medical history - anticoagulation therapy - no - kidney stones the - prostatitis no Prior tobacco use - yes 30 pack per day Workplace exposures - no Associated symptoms at initial evaluation include dysuria no frequency the urgency no decreased urinary stream no pain No nausea No weight loss No Radiographic imaging: - CT scan normal Other investigations - cytology atypical degenerative cells Cystoscopy findings - inflamed trigone PFSH Medical History (Updated 05/29/25 @ 14:34 by Bella Moreira NP) Skin cancer Anxiety with depression HIV (human immunodeficiency virus infection) Anemia Osteoporosis Renal cyst COPD (chronic obstructive pulmonary disease) CAD (coronary artery disease) PAF (paroxysmal atrial fibrillation) Weight loss Hyperlipidemia Diabetes High blood pressure Surgical History History of open reduction and internal fixation (ORIF) procedure Hx of cholecystectomy H/O colonoscopy H/O partial thyroidectomy Hx of heart artery stent Family History Father History of quadruple bypass Lung cancer Mother No problems noted. Social History (Updated 05/30/25 @ 11:05 by Chasity Meneses CMA) Household Members: Spouse Housing: House Housing Other:: mobile home Are you a primary care management coordinator to a significant other at home: No Do you presently have visiting nurse or other home services: No Alcohol intake: never Comment: using w/c due to severity of back symptoms Patient Tobacco Use Status: Never used Tobacco e-Cigarette/Vaping Use: Never Used Second Hand Smoke Exposure: Yes Substance Use Type: Marijuana service: No Current occupational status: retired and disabled Cognitive needs: No Hearing needs: Yes (Hearing aids. Did not put them in today. ) Vision needs: No Review of Systems Const Denies chills and Denies fever(s) Card Reports no additional complaints and Denies syncope Resp Denies cough GI Denies abdominal pain and Denies heartburn Reports as per HPI and Denies change in libido Neuro Denies syncope Psych Denies change in libido Endo Denies change in libido Physical Exam Const General: cooperative, healthy appearing, comfortable and no acute distress Orientation/consciousness: patient oriented x3 HEENT Face and sinus: Yes normal facial exam Mouth: moist mucous membranes Neck Neck: Yes normal visual inspection, Yes full ROM and Yes trachea midline Chest Chest palpation & inspection: normal inspection of the chest Resp Effort & Inspection: normal respiratory effort, able to speak in complete sentences and no respiratory distress GI Inspection: Yes normal to inspection Back/Spine/Pelvis Cervical Spine: normal cervical lordosis Thoracic/Lumbar Spine: thoracic and lumbar spine normal to inspection Skin General skin exam: no rashes or lesions noted Neuro General: patient oriented x3, gait normal, tone normal and moves all extremities Extrem General: Yes normal to inspection and Yes capillary refill normal Office Procedures Cystoscopy Consent Discussed risk and benefit or proposed procedure with the patient. Information consent for procedure given to the patient. Discussed technical aspects, risks, benefits and alternatives in full. Addressed all of the patient's questions and concerns regarding the procedure. The patient demonstrated knowledge and understanding. They wish to proceed with this procedure. Preparation The patient was prepped in the usual manner. A tar distillation supervisor was present and in the room. Genitalia was prepped with betadine solution in a sterile manner. Lidocaine Jelly 2% was placed into the urethra and 16Fr flexible Olympus cystoscope was inserted into the meatus after adequate lubrication. Procedure Consent confirmed Genitalia prepped and draped using topical antiseptic and lidocaine jelly Clamp placed on penile glans to allow adequate dwell contact time with anesthetic Cystoscopy performed using a sterile disposable Urovue digital 16 Nepalese cystoscope Meatus circumcised Urethra anterior and posterior urethra normal Prostatic Urethra unremarkable Bladder examination with retroflexion of cystoscope Bladder Orifices normal shape and position Bladder Capacity Normal Trabeculations Grade 0 Cellule Formation None Diverticulum Formation None Mucosal Erythema inflamed mucosa particularly in trigone area Bladder Tumor None [id number] DISPOSABLE SCOPE URO-G FLEXIBLE SCOPE Procedure code (CPT) selection complete Office Meds lidocaine HCl 2 % mucosal jelly in applicator Performing Provider: Rogelio Daly MD [place] [facility] [place] [facility] [place] [facility] Administered by: Daxa Gomez RN on 06/13/25 11:25 Dose Route Admin Location Dispensed Lot Number Expiration Date NDC Voip Network Engineer 10 mL intra-urethral 10 mL nitrofurantoin monohydrate/macrocrystals 100 mg capsule Performing Provider: Rogelio Daly MD [place] [facility] [place] [facility] Administered by: Daxa Gomez RN on 06/13/25 11:25 Dose Route Admin Location Dispensed Lot Number Expiration Date NDC Voip Network Engineer 100 mg PO 1 cap Results AMB Urinalysis, Automated UA Leukoctes 0 Manolo/uL Last Edit by Khushobo Aragon [facility] on 06/13/25 11:26 UA Nitrite Negative Last Edit by Khushboo Aragon [facility] on 06/13/25 11:26 UA Urobilinogen 0.2 mg/dL Last Edit by Khushboo Aragon [facility] on 06/13/25 11:26 UA Protein 15 mg/dL Last Edit by Khushboo Aragon [facility] on 06/13/25 11:26 UA pH 6.0 Last Edit by Khushboo Aragon [facility] on 06/13/25 11:26 UA Blood 200 Kota/uL Last Edit by Khushboo Aragon [facility] on 06/13/25 11:26 UA Specific Marion 1.020 Last Edit by Khushboo Aragon [facility] on 06/13/25 11:2 6 UA Ketone Negative Last Edit by Khushboo Aragon [facility] on 06/13/25 11:26 UA Bilirubin 1 mg/dL Last Edit by Khushboo Aragon [facility] on 06/13/25 11:26 UA Glucose 0 mg/dL Last Edit by Khushboo Aragon [facility] on 06/13/25 11:26 Results Reviewed Results Reviewed: Laboratory Last Values Urine pH (Auto) 6.0 06/13/25 11:25 Specific Marion (Auto) 1.020 06/13/25 11:25 Urine Protein (Auto) 15 mg/dL 06/13/25 11:25 Glucose (UA)(Auto) 0 mg/dL 06/13/25 11:25 Urine Ketones (Auto) Negative 06/13/25 11:25 Urine Blood (Auto) 200 Kota/uL 06/13/25 11:25 Urine Nitrite (Auto) Negative 06/13/25 11:25 Urine Bilirubin (Auto) 1 mg/dL 06/13/25 11:25 Urine Urobilinogen (Auto) 0.2 mg/dL 06/13/25 11:25 Leukocyte Esterase (Auto) 0 Manolo/uL 06/13/25 11:25 Assessment & Plan Assessment & Plan (1) Hematuria: Code(s): R31.9 - Hematuria, unspecified Category: Medical Plan Inflamed trigone Orders: Orders AMB Cystoscopy Today R31.9 - Hematuria, unspecified AMB Urinalysis Automated Today N13.8 - Other obstructive and reflux uropathy, N40.1 - Benign prostatic hyperplasia with lower urinary tract symptoms Patient Instructions: This note is constructed using voice recognition software. While every effort has been made to ensure accuracy statuary painter errors may have been included. Imaging studies, laboratory and physical exam results were discussed and reviewed in detail. No major barriers to patient understanding were identified. An opportunity to ask questions regarding the treatment plan was provided. All questions were answered. The patient expressed understanding and agreement with the above treatment plan. The patient is aware they should contact our office by phone for worsening of their current condition or the appearance of new urologic symptoms. Compliance is encouraged with any medications and followup testing that is ordered. It is a privilege to participate in the urologic care of your patient. If you have any questions or concerns regarding treatment for the above conditions, or other urologic issues, please do not hesitate to contact me. The office telephone contact is [phone]. Sincerely, Dr Rogelio Daly MD, [facility] - Urology Compassionate Specialist Care for the Genitourinary System Coding Level of Care Code Est Pt Level 3 (02683) Diagnoses Hematuria R31.9 CPT Codes Cystoscopy - CPT: [id number] ([id number])
== END 2025-06-13 11:42 | disposition home or self-care (01) ==
LOC: HO.HUSH 11:06
PROVIDERS: PCP Physician Assistant; Visit Provider Urology
DX: N40.1 Benign prostatic hyperplasia with lower urinary tract symptoms (principal); N13.8 Other obstructive and reflux uropathy; R31.9 Hematuria, unspecified
CPT/HCPCS: 52000; 99213

== ENCOUNTER 2025-06-13 11:05 | Outpatient (REF) | payer MEDICARE, SELFPAY | END 2025-06-13 11:06 | disposition home or self-care (01) | LOC: HO.LAB 11:05 | PROVIDERS: PCP Physician Assistant; Visit Provider Urology | DX: R31.29 Other microscopic hematuria (principal) | CPT/HCPCS: 88121 ==

== ENCOUNTER 2025-06-18 09:11 | Day surgery (SDC) | payer MEDICARE, SELFPAY ==
--- OUTSIDE RECORDS SUMMARY | 2025-06-10 16:11 | XMS_ITS | Encounter Summary ---
Author Organization [facility] Address [address] [place] [address] Care Team Providers Care Shiftman Name Role Phone Shanae Zarate MD Unavailable Renee Mora DO Primary Care Provider [phone] Reason for Visit * Reason Comments Med Refill Encounter Details Date Type Department Care Team (Late st Contact Info) Description 07/15/2024 Refill [facility] [address] [facility] [address] [place], [place] [id number] Gay Rosario MD [address] [facility] [address] [place], [place] [phone] Diabetic polyneuropathy associated with type 2 diabetes mellitus ([facility]/HCC) Social History Tobacco Use Types [...] often do you attend chur ch or sabianism services? Patient declined 07/21/2022 Do you belong [...] Date Recorded Depression Risk (PHQ2) [facility] [...] RFA TEAM No staff refills--now living in [place]--see Metformin request--see Apr 2024 refill request documented [...] documented as of this encounter Care Teams Shiftman Relationship Specialty Start Date End Date Renee Mora DO [address] [place] [address] PCP - General Family Medicine 06/04/24 Shanae Zarate MD [address] [place] [address] Consulting Physician Cardiology 10/13/20 documented as of this encounter
--- OUTSIDE RECORDS SUMMARY | 2025-06-10 16:11 | XMS_ITS | Clinical Summary ---
Author Organization [facility] Address [address] [place] [address] Care Team Providers Care Senior Insight Manager Name Role Phone Shanae Zarate MD Unavailable Renee Mora DO Primary Care Provider [phone] Allergies Active Allergy Reactions Criticality Noted Date [...] - submitted cover my meds 06/16/22 (Toussaint: [id number]) - approved 06/02/22-06/16/[address] #[id number] [address] Problem Noted Date Diagnosed Date Type 2 diabetes mellitus wit h diabetic peripheral angiopathy without gangrene, with long-term current use of insulin 07/01/2023 Type 2 diabetes mellitus with other specified co mplication 07/01/2023 Overview (07/01/2023): With mixed hyperlipidemia Assessment & Plan (07/01/2023 1:51 PM [facility]): Diabetes is controlled. A1c up because he was off trulicity for a while but been back on it. Stable. Continue present management. Age-related osteoporosis wit hout current pathological fracture 07/26/2022 Overview (07/26/2022): DXA 07/01 right hip -3.6, left hip -3.5 Assessment & Plan (07/26/2022 10:48 AM [facility]): Recent pelvic fracture. Counseling about osteopenia/osteoporosis. [...] & Plan (07/26/2022 10:55 AM [facility]): Patient requested refill of his pain [...] is for him to consult with a eligibility specialist or even update his spine imaging. I will defer this to his pain management team. Bilateral carpal tunnel syndrome 07/26/2022 Overview (07/26/2022): EMG/NCV 07/01 Assessment & Plan (07/26/2022 10:56 AM [facility]): I will request his records from [...] & Plan (10/13/2020 11:44 AM [facility]): Condition is newly identified. Detailed treatment [...] get in touch with our [facility] team to help him get started on [...] (03/11/2021 1:37 PM MST): Follow-up with his laborer high density press. Abdominal aortic atherosclerosis 06/29/2019 Overview (06/29/2019): [...] to stent. Advised to follow-up with his housekeeping coordinator. Benign essential HTN 06/29/2019 Assessment & Plan [...] comorbidities Paroxysmal atrial fibrillation 06/29/2019 Overview (07/01/2023): [id number] Score 3 Assessment & Plan (07/01/2023 1:50 [...] (10/13/2020): Added automatically from request for surgery [id number] Resolved Problems Problem Noted Date Diagnosed Date [...] 07/21/2022 How often do you attend [facility] or nondenominational services? Patient declined 07/21/2022 Do you belong [...] 0 [facility]at [facility] - Occupational Stress Questionnaire Answer [...] Index 27.67 07/21/2022 1:37 PM [facility] Plan of Treatment Health Maintenance Due [...] STOOL Routine 10/15/2020 12:00 AM [facility] Screening for colorectal cancer HEPATITIS C VIRUS (HCV) ANTIBODY WITH REFLEX TO QUALITATIVE ISABEL Routine 07/26/2018 from Last 3 Months or Most Recently Relevant to Health Maintenance Results * Colonoscopy (08/03/2021) [facility] Colonoscopy colon polyps Historical Provider HEALTH MAINTENANCE Final Result * Occult blood x 1, stool (10/15/2020 12:00 AM [facility]) [facility] Occult Bld Immunochem Negative Negative [employer] Comment: Assay sensitivity is >95% when 50 ug Hb/g of stool is present. Clinical sensitivity for colorectal cancer is 87%, and for large adenomas is 47%, based on an evaluation of 240 individuals in a premarket commercial data set used for FDA approval. Overall, clinical specificity is 97.7%. Stool (Per Rectum) 10/15/2020 10/22/2020 7:18 PM [facility] Narrative [facility] - 10/15/2020 12:00 AM [facility] Time/Date of collection taken from specimen. Copy being sent to: Results Only Account [employer] Romero Lovett MD LAB BODY FLUIDS AND STOOLS OR DERABLES Edited Result - Final [facility] [address] [place] [address] * Hepatitis C Virus (HCV) Antibody With Reflex to Qualitative ISABEL (07/26/2018) [facility] HCV Ab 0.08 <=0.79 Index [facility] Hepatitis C Ab Nonreactive Nonreactive [facility] Comment: Performance characteristics [...] Re sult [facility] Anywhere [address] from Last 3 Months or Most Recently Relevant to Health Maintenance Care Teams Senior Insight Manager Relationship Specialty Start Date End Date Renee Mora DO [address] [place] [address] PCP - General Family Medicine 06/04/24 Shanae Zarate MD [address] [place] [address] Consulting Physician Cardiology 10/13/20
--- OUTSIDE RECORDS SUMMARY | 2025-06-10 16:11 | XMS_ITS | Encounter Summary ---
Author Organization [facility] Address [address] [place] [address] Care Team Providers Care Instructional Material Director Name Role Phone Romero Licea MD Primary Care Provider Shanae Zarate MD Unavailable Princess Monroy LOAN REVIEW OFFICER Unavailable [phone] Luh NashD Unavailable Cathy Tee RN Unavailable Romero Licea MD Unavailable Renee Mora DO Unavailable Renee Mora DO Primary Care Provider Reason for Visit * Reason Comments Med Refill Encounter Details Date Type Department Care Team (Late st Contact Info) Description 05/04/2019 Refill [facility] [address] [place], [place] [address] Nirmal Huizar MD [address] [place] [address] Social History Tobacco Use Types Packs/Day Years [...] on filedocumented in this encounter Care Teams Instructional Material Director Relationship Specialty Start Date End Date Romero Licea MD PCP - General Family Medicine 06/27/19 05/27/24 Romero Licea MD [address] [place] [address] PCP - Medicare Advantage - Attributed PCP 10/09/22 07/10/23 Renee Mora DO [address] [place] [address] PCP - Medicare Advantage - Attributed PCP 07/11/23 06/09/24 Renee Mora DO [address] [place] [address] PCP - General Family Medicine 06/04/24 Shanae Zarate MD [address] [facility] [address] Consulting Physician Cardiology 10/13/20 Princess Monroy LCSW [address] [place] [address] Ultrasound Applications Specialist Custom Dressmaker 10/31/20 05/27/24 Luh Nash, HunterD [address] [place] [address] Clinical Pharmacist Pharmacy 11/24/20 03/04/22 Cathy Tee, KAMERON [address] [place] [address] [place] [address] Handstitching Machine Collar Feller ( Nurse) Care Management 08/17/21 documented as of this encounter
--- OUTSIDE RECORDS SUMMARY | 2025-06-10 16:11 | XMS_ITS | Encounter Summary ---
Author Organization [facility] Address [address] [place] [address] Care Team Providers Care Wire Frame Dipper Name Role Phone Romero Licea MD Primary Care Provi clifton Shana Mike CASH PERSON Unavailable [phone] Julius Canseco MD Unavailable Encounter Details Date Type Department Care Team (Late st Contact Info) Description 01/21/2022 Procedure Pass [facility] Surgery [address] [place] [place] [address] Social History Tobacco Use [...] on filedocumented in this encounter Care Teams Wire Frame Dipper Relationship Specialty Start Date End Date Romero Licea MD [address] [place] [address] PCP - General Family Medicine 08/03/21 Shana Mike NP [address] [place], [place] [id number] Nurse Practitioner Physical Medicine and Rehabilitation 11/15/22 Julius Canseco MD [address] [place] [address] Consulting Physician Physical Medicine and Rehabilitation 04/11/23 documented as of this encounter
--- OUTSIDE RECORDS SUMMARY | 2025-06-10 16:11 | XMS_ITS | Encounter Summary ---
Author Organization [facility] Address [address] [place] [address] Care Team Providers Care Semiconductors Wafer Breaker Name Role Phone Romero Licea MD Primary Care Provider Shanae Zarate MD Unavailable Princess Monroy BAKER SECOND Unavailable [phone] Luh NashD Unavailable Cathy Tee RN Unavailable Romero Licea MD Unavailable Renee Mora DO Unavailable Renee Mora DO Primary Care Provider Reason for Visit * Reason Comments Med Refill Encounter Details Date Type Department Care Team (Late st Contact Info) Description 06/27/2019 Refill [facility] [address] [place], [place] [address] Nirmal Huizar MD [address] [place] [address] Social History Tobacco Use Types Packs/Day Years Used Date Smoking Tobacco: Never Assessed Sex and Gender Information Value Date Recorded Sex Assigned at Not on file Legal Sex Male 1:57 AM [facility] Gender Identity Not on file Sexual Orientation Not on file documented as of this encounter Plan of Treatment Not on file documented as of this encounter Visit Diagnoses Not on filedocumented in this encounter Care Teams Semiconductors Wafer Breaker Relationship Specialty Start Date End Date Romero Licea MD PCP - General Family Medicine 06/27/19 05/27/24 Romero Licea MD [address] [place] [address] PCP - Medicare Advantage - Attributed PCP 10/09/22 07/10/23 Renee Mora DO [address] [place] [address] PCP - Medicare Advantage - Attributed PCP 07/11/23 06/09/24 Renee Mora DO [address] [place] [address] PCP - General Family Medicine 06/04/24 Shanae Zarate MD [address] [place] [address] Consulting Physician Cardiology 10/13/20 Princess Monroy LCSW [address] [place] [address] Continuous Miner Hostel Parent 10/31/20 05/27/24 Luh Nash, HunterD [address] [place] [address] Clinical Pharmacist Pharmacy 11/24/20 03/04/22 Cathy Tee, KAMERON [address] [place] [address] [facility] [address] Mergers And Acquisitions Associate ( Nurse) Care Management 08/17/21 documented as of this encounter
--- OUTSIDE RECORDS SUMMARY | 2025-06-10 16:11 | XMS_ITS | Encounter Summary ---
Author Organization [facility] Address [address] [place] [address] Care Team Providers Care Stereotyper Helper Name Role Phone Romero Licea MD Primary Care Provi clifton Shana Mike HORSE RACE TIMER Unavailable Julius Canseco MD Unavailable Encounter Details Date Type Department Care Team (Late st Contact Info) Description 02/04/[address] [facility] Surgery [address] [place] [address] Social History Tobacco Use Types [...] on filedocumented in this encounter Care Teams Stereotyper Helper Relationship Specialty Start Date End Date Romero Licea MD [address] [place] [address] PCP - General Family Medicine 08/03/21 Shana Mike NP [address] [place], [place] [id number] Nurse Practitioner Physical Medicine and Rehabilitation 11/15/22 Julius Canseco MD [address] [place] [address] Consulting Physician Physical Medicine and Rehabilitation 04/11/23 documented as of this encounter
--- OUTSIDE RECORDS SUMMARY | 2025-06-10 16:11 | XMS_ITS | Encounter Summary ---
Author Organization [facility] Address [address] [place] [address] Care Team Providers Care Hyperbaric Nurse Name Role Phone Romero Licea MD Primary Care Provider Shanae Zarate MD Unavailable Princess Monroy BROKERAGE PURCHASE AND SALE CLERK Unavailable [phone] Luh NashD Unavailable Cathy Tee RN Unavailable Romero Licea MD Unavailable Renee Mora DO Unavailable Renee Mora DO Primary Care Provider Reason for Visit * Reason Comments Med Refill Encounter Details Date Type Department Care Team (Late st Contact Info) Description 05/25/2019 Refill [facility] [address] [place], [place] [address] Nirmal Huizar MD [address] [place] [address] Social History Tobacco Use Types Packs/Day Years Used Date Smoking Tobacco: Never Assessed Sex and Gender Information Value Date Recorded Sex Assigned at Not on file Legal Sex Male 1:57 AM [facility] Gender Identity Not on file Sexual Orientation Not on file documented as of this encounter Plan of Treatment Not on file documented as of this encounter Visit Diagnoses Not on filedocumented in this encounter Care Teams Hyperbaric Nurse Relationship Specialty Start Date End Date Romero Licea MD PCP - General Family Medicine 06/27/19 05/27/24 Romero Licea MD [address] [place] [address] PCP - Medicare Advantage - Attributed PCP 10/09/22 07/10/23 Renee Mora DO [address] [place] [address] PCP - Medicare Advantage - Attributed PCP 07/11/23 06/09/24 Renee Mora DO [address] [place] [address] PCP - General Family Medicine 06/04/24 Shanae Zarate MD [address] [place] [address] Consulting Physician Cardiology 10/13/20 Princess Monroy LCSW [address] [place] [address] Hyperbaric Technician Tellers Supervisor 10/31/20 05/27/24 Luh Nash, HunterD [address] [place] [address] Clinical Pharmacist Pharmacy 11/24/20 03/04/22 Cathy Tee, KAMERON [address] [place] [address] [place] [address] X Ray Consultant ( Nurse) Care Management 08/17/21 documented as of this encounter
--- OUTSIDE RECORDS SUMMARY | 2025-06-10 16:11 | XMS_ITS | Encounter Summary ---
Author Organization [facility] Address [address] [place] [address] Care Team Providers Care Engineer Remote Control Diesel Name Role Phone Romero Licea MD Primary Care Provi clifton Shana Mike DRILL PRESS OPERATOR Unavailable [phone] Julius Canseco MD Unavailable Encounter Details Date Type Department Care Team (Late st Contact Info) Description 04/11/2023 Procedure Pass [facility] Surgery [address] [place] [address] Social History Tobacco Use Types [...] on filedocumented in this encounter Care Teams Engineer Remote Control Diesel Relationship Specialty Start Date End Date Romero Licea MD [address] [place], [place] [id number] PCP - General Family Medicine 08/03/21 Shana Mike NP [address] [place], [place] [id number] Nurse Practitioner Physical Medicine and Rehabilitation 11/15/22 Julius Canseco MD [address] [place] [address] Consulting Physician Physical Medicine and Rehabilitation 04/11/23 documented as of this encounter
--- OUTSIDE RECORDS SUMMARY | 2025-06-10 16:11 | XMS_ITS | Encounter Summary ---
Author Organization [facility] Address [address] [place] [address] Care Team Providers Care Commercial Lines Account Executive Name Role Phone Romero Licea MD Primary Care Provi clifton Shana Mike LAMINATING MACHINE OFFBEARER Unavailable [phone] Julius Canseco MD Unavailable Encounter Details Date Type Department Care Team (Late st Contact Info) Description 10/22/2021 Procedure Pass [facility] Surgery [address] [place] [address] Social History Tobacco Use Types [...] on filedocumented in this encounter Care Teams Commercial Lines Account Executive Relationship Specialty Start Date End Date Romero Licea MD [address] [place] [address] PCP - General Family Medicine 08/03/21 Shana Mike NP [address] [place] [address] Nurse Practitioner Physical Medicine and Rehabilitation 11/15/22 Julius Canseco MD [address] [place], [place] [id number] Consulting Physician Physical Medicine and Rehabilitation 04/11/23 documented as of this encounter
--- OUTSIDE RECORDS SUMMARY | 2025-06-10 16:11 | XMS_ITS | Encounter Summary ---
Author Organization [facility] Address [address] [place] [address] Care Team Providers Care Event Av Operator Name Role Phone Shanae Zarate MD Unavailable Renee Mora DO Primary Care Provider [phone] Reason for Visit * Reason Comments Med Refill Encounter Details Date Type Department Care Team (Late st Contact Info) Description 06/23/2024 Refill [facility] [address] [place] [address] [place] [address] [place] [address] [address] [place] [address] Diabetic polyneuropathy associated with type [...] How often do you attend chur or church services? Patient declined 07/21/2022 Do you belong [...] Depression Risk (PHQ2) Score 0 [facility] - Occupational Stress Questionnaire [...] documented as of this encounter Care Teams Event Av Operator Relationship Specialty Start Date End Date Renee Mora DO [address] [place], [place] [id number] PCP - General Family Medicine 06/04/24 Shanae Zarate MD [address] [place] [address] [place] [address] Consulting Physician Cardiology 10/13/20 documented as of this encounter
--- OUTSIDE RECORDS SUMMARY | 2025-06-10 16:11 | XMS_ITS | Encounter Summary ---
Author Organization [facility] Address [address] [place] [address] Care Team Providers Care Field Merchandiser Name Role Phone Romero Licea MD Primary Care Provi clifton Shana Mike CLAY PRODUCTS MACHINE OPERATOR Unavailable [phone] Julius Canseco MD Unavailable [phone] Encounter Details Date Type Department Care Team (Late st Contact Info) Description 04/25/2023 Procedure Pass [facility] [place] Surgery [address] [place] [address] Social History Tobacco Use Types [...] on filedocumented in this encounter Care Teams Field Merchandiser Relationship Specialty Start Date End Date Romero Licea MD [address] [place], [place] [id number] PCP - General Family Medicine 08/03/21 Shana Mike NP [address] [place], [place] [id number] Nurse Practitioner Physical Medicine and Rehabilitation 11/15/22 Julius Canseoc MD [address] [place] [address] Consulting Physician Physical Medicine and Rehabilitation 04/11/23 documented as of this encounter
--- OUTSIDE RECORDS SUMMARY | 2025-06-10 16:11 | XMS_ITS | Encounter Summary ---
Author Organization [facility] Address [address] [place] [address] Care Team Providers Care Saw Tailer Name Role Phone Ubaldo Spring MD Primary Care Provider [phone] Romero Licea MD Primary Care Provi clifton Shana Mkie NP Unavailable [phone] Julius Canseco MD Unavailable Encounter Details Date Type Department Care Team (Late st Contact Info) Description 09/24/2017 Procedure Pass [facility] Endoscopy [address] [place] [address] Social History Tobacco Use Types [...] filedocumented in this encounter Care Teams Saw Tailer Relationship Specialty Start Date End Date Ubaldo Spring MD PCP - General Family Medicine 09/20/17 08/02/21 Romero Licea MD [address] [place] [address] PCP - General Family Medicine 08/03/21 Shana Mike NP [address] [place], [place] [phone] Nurse Practitioner Physical Medicine and Rehabilitation 11/15/22 Julius Canseco MD [address] [place], [place] [id number] Consulting Physician Physical Medicine and Rehabilitation 04/11/23 documented as of this encounter
--- OUTSIDE RECORDS SUMMARY | 2025-06-10 16:11 | XMS_ITS | Clinical Summary ---
Author Organization [facility] Address [address] [place] [address] Care Team Providers Care Medical Claims Processor Name Role Phone Romero Licea MD Primary Care Provi clifton Shana Mike NP Unavailable [phone] Julius Canseco MD Unavailable Allergies No known [...] (10/06/2021): Added automatically from request for surgery [id number] Lumbar radiculopathy 10/05/2021 Overview (10/05/2021): Added automatically from request for surgery [id number] Fever 09/23/2017 Asthma 09/21/2017 HIV (human immunodeficiency virus infection) COPD (chronic obstructive pulmonary disease) Hypertension 09/21/2017 Polycythemia 09/21/2017 Hyponatremia 09/21/2017 Dehydration 09/20/[address] scan, stomach 09/20/2017 Overview (09/23/2017): Added automatically from request for surgery [id number] Social History Tobacco Use Types Packs/Day Years [...] Comments Blood Pressure 128/72 04/11/2023 5:00 PM [facility] Pulse 66 04/11/2023 5:00 PM [facility] Temperature 36.6 C (97.8 F) 04/11/2023 2:43 PM [facility] Respiratory Rate 16 04/11/2023 5:00 PM [facility] Oxygen Saturation 99% 04/11/2023 5:00 PM [facility] Inhaled Oxygen Concentration - - Weight 90.7 [...] abdomen pelvis with contrast (09/21/2017 8:44 PM [facility]) Anatomical Region Laterality Modality Abdomen, Chest, Pelvis, Hip Comp uted Tomography 09/21/2017 8:42 PM [facility] Narrative 09/21/2017 8:55 PM [facility] CT THORAX, ABDOMEN AND PELVIS WITH CONTRAST [...] * (ABNORMAL) Hemoglobin A1c (09/21/2017 4:47 AM [facility]) Hemoglobin A1C 8.5(H) <=5.7 % 09/21/2017 9:55 AM [facility] EAG 197.3 mg/dL 09/21/2017 9:55 AM [facility] Blood BLOOD SPECIMEN / Unknown Venipuncture / Unknown 09/21/2017 4:47 AM [facility] 09/21/2017 4:57 AM [facility] Narrative [facility] - 09/21/2017 9:55 AM [facility] The [place] Diabetes [employer] (ADA) guidelines for interpreting Hemoglobin A1C are as follows: Non-Diabetic patient: <5.7% Increased risk for future Diabetes: 5.7-6.4% ADA diagnostic criteria for Diabetes: >6.4% Values for patients with Diabetes: Result <7.0%: Meets ADA's recommendation goal for therapy. Result 7.0-8.0%: Exceeds ADA's recommended goal. Result >8.0%: ADA recommends reevaluation of therapy. us Dre Perez MD LAB BLOOD ORDERABLES Bess chavez Result [facility] [id number] [id number], [facility] [phone] from Last 3 Months or Most Recently Relevant to Health Maintenance Insurance [facility] MEDICARE ADVANTAGE [facility] MEDICARE ADVANTAGE [employer] MEDICARE ADVANTAGE CIGNA MEDICARE ADVANTAGE Advance Directives For more information, please contact: [phone] * Full Code (Latest Code Status on File) Date Activated Date Inactivated Comments 09/20/2017 8:25 PM 09/26/2017 4:14 PM Care Teams Medical Claims Processor Relationship Specialty Start Date End Date Romero Licea MD [address] [place] [address] PCP - General Family Medicine 08/03/21 Shana Mike NP [address] [place] [address] Nurse Practitioner Physical Medicine and Rehabilitation 11/15/22 Julius Canseco MD [address] [place] [address] Consulting Physician Physical Medicine and Rehabilitation 04/11/23
--- OUTSIDE RECORDS SUMMARY | 2025-06-10 16:11 | XMS_ITS | Encounter Summary ---
Author Organization [facility] Address [address] [place] [address] Care Team Providers Care Lead Tinner Name Role Phone Romero Licea MD Primary Care Provi clifton Shana Mike DIRECTOR HR COMMUNICATIONS Unavailable [phone] Julius Canseco MD Unavailable Encounter Details Date Type Department Care Team (Late st Contact Info) Description 10/08/2021 Procedure Pass [facility] Surgery [address] [place] [address] Social History Tobacco Use Types Packs/Day Years Used Date Smoking Tobacco: Former Cigarettes 2 10 Smokeless Tobacco: Never Alcohol Use Standard Drinks/Week Comments No 0 (1 standard drink = 0.6 oz pur e alcohol) Sex and Gender Information Value Date Recorded Sex Assigned at Not on file Legal Sex Male 10:[address] [facility] [...] filedocumented in this encounter Care Teams Lead Tinner Relationship Specialty Start Date End Date Romero Licea MD [address] [place] [address] PCP - General Family Medicine 08/03/21 Shana Mike NP [address] [place] [address] Nurse Practitioner Physical Medicine and Rehabilitation 11/15/22 Julius Canseco MD [address] [place], [place] [phone] Consulting Physician Physical Medicine and Rehabilitation 04/11/23 documented as of this encounter
--- OUTSIDE RECORDS SUMMARY | 2025-06-10 16:11 | XMS_ITS | Encounter Summary ---
Author Organization [facility] Address [address] [place] [address] Care Team Providers Care Wafer Cleaner Name Role Phone Romero Licea MD Primary Care Provi clifton Shana Mike PRODUCT SAFETY COORDINATOR Unavailable [phone] Julius Canseco MD Unavailable [phone] Encounter Details Date Type Department Care Team (Late st Contact Info) Description 08/03/[address] [facility] Endoscopy [address] [place] [address] Social History Tobacco Use Types [...] on filedocumented in this encounter Care Teams Wafer Cleaner Relationship Specialty Start Date End Date Romero Licea MD [address] [place] [address] PCP - General Family Medicine 08/03/21 Shana Mike NP [address] [place] [address] Nurse Practitioner Physical Medicine and Rehabilitation 11/15/22 Julius Canseco MD [address] [place], [place] [address] Consulting Physician Physical Medicine and Rehabilitation 04/11/23 documented as of this encounter
--- OUTSIDE RECORDS SUMMARY | 2025-06-10 16:11 | XMS_ITS | Encounter Summary ---
Author Organization [facility] Address [address] [place] [address] Care Team Providers Care Occupational Therapy Specialist Name Role Phone Ubaldo Spring MD Primary Care Provider [phone] Romero Licea MD Primary Care Provi clifton Shana Mike NP Unavailable [phone] Julius Canseco MD Unavailable Encounter Details Date Type Department Care Team (Late st Contact Info) Description 09/23/2017 Procedure Pass [facility] Endoscopy [address] [place] [place] [address] Social History Tobacco Use Types [...] filedocumented in this encounter Care Teams Occupational Therapy Specialist Relationship Specialty Start Date End Date Ubaldo Spring MD PCP - General Family Medicine 09/20/17 08/02/21 Romero Licea MD [address] [place] [address] PCP - General Family Medicine 08/03/21 Shana Mike NP [address] [place], [place] [id number] Nurse Practitioner Physical Medicine and Rehabilitation 11/15/22 Julius Canseco MD [address] [place], [place] [id number] Consulting Physician Physical Medicine and Rehabilitation 04/11/23 documented as of this encounter
[2025-06-18] VITALS (7 sets, daily range): BP systolic 111–132; BP diastolic 48–85; PULSE 67–91; RESP 11–21; TEMP 36.3–36.6; O2SAT 95–98; BMI 28.3
--- NOTE | ~2025-06-18 | FL_ITS ---
EXAMINATION: FLUOROSCOPY GUIDANCE FOR NEEDLE PLACEMENT CLINICAL INFORMATION: L4-5 Decompression, Left COMPARISON: Lumbar spine x-ray May 2025 and lumbar spine MRI April 2025 TECHNIQUE: Fluoroscopic guidance provided for lumbar spine surgery. FINDINGS: Single lateral view of the lumbar spine demonstrates surgical instrument projecting posterior to the L4-5 disc space level. FLUOROSCOPY TIME: 1.8 seconds DOSE AREA PRODUCT: 0.7 Gy-cm2 FL/FL guidance in OR IMPRESSION: Fluoroscopy guidance for lumbar spine surgery. Electronically signed by: Gay Avina MD 06/18/2025 03:33 PM EST
--- NOTE | 2025-06-18 08:56 | MHC.SHP ---
Pre-Procedural Eval Section A - 24 Hr Update-Section A only Date of Service: 06/18/25 The patient is an INPATIENT: No Section B - Complete if H&P > 30 days Chief Complaint: Spinal stenosis, lumbar region with neurogenic Details of Present Illness: Left leg pain Medical History: Significant History (HIV) Allergies: Allergies Allergy/AdvReac Type Severity Reaction Status Date / Time Seasonal Allergies Allergy Mild sneezing Verified 06/13/25 11:12 Exam Surgical H&P Exam: Normal: HEENT, Normal: Heart, Normal: Lungs, Normal: Extremities, Normal: Abdomen, Normal: Skin and Normal: Neurological (Awake, alert) Plan Diagnosis/Plan: Unchanged I have reviewed the history and physical and performed a pertinent physical examination on my patient. No changes have occurred unless specified. Left L4-5 decompression Time Spent With Patient Time: Total time managing care of this patient today 5___ minutes.
[2025-06-18 09:35] LABS: Glucose, Whole Blood 94 mg/dL (60-115)
--- NOTE | 2025-06-18 09:39 | HO.ANESPROP2 ---
Documented by User: Sabine Perry NP 06/14/25 08:49 HPI - Anesthesia Eval Consult details Narrative: 69yo M for L4-5 Decompression Follows [facility] [place] Cardiology for: CAD - LAD/RCA PCI 2015 ? Hx of PAF - no anticoag and EKG NSR Stable at 04/2025 office visit - no CV symptoms when active prior to neuro-spine symptoms Follows [facility] [place] Pulmo for: COPD 04/2025 office visit continues with productive cough and wheezing - given second steroid taper CXR 04/2025 shows bilateral atalectasis T/C to pt 05/27/25, pt reports improvment in symptoms. Off steroids, using scheduled inhalers as rx'd, nebulizer 1 x daily Anesthesia Pre-Procedure Meds Is the patient on any of the following meds?: GLP1/DPP4 PMFSH Active Problems Active Problems: All Active Problems Lumbar stenosis with neurogenic claudication (Acute) Renal cyst (Acute) Preoperative cardiovascular examination (Acute) Atherosclerotic cardiovascular disease (Acute) Left leg pain (Acute) Lumbar pain with radiation down left leg (Acute) History of recent pneumonia (Acute) Chronic cough (Acute) Hematuria (Acute) Osteoporosis (Acute) Environmental allergies (Acute) Dyspnea (Acute) Anemia (Acute) COPD (chronic obstructive pulmonary disease) (Acute) Hx of skin malignancy (Acute) HIV (human immunodeficiency virus infection) (Acute) Colon polyps (Acute) Anxiety with depression (Acute) CAD (coronary artery disease) (Acute) Type 2 diabetes mellitus, with long-term current use of insulin (Acute) PAF (paroxysmal atrial fibrillation) (Acute) Weight loss (Acute) High blood pressure (Acute) Past Medical History Medical History (Updated 05/29/25 @ 14:34 by Bella Moreira NP) Skin cancer Anxiety with depression HIV (human immunodeficiency virus infection) Anemia Osteoporosis Renal cyst COPD (chronic obstructive pulmonary disease) CAD (coronary artery disease) PAF (paroxysmal atrial fibrillation) Weight loss Hyperlipidemia Diabetes High blood pressure Family History Family History Father History of quadruple bypass Lung cancer Mother No problems noted. Surgical History Surgical History (Updated 06/18/25 @ 09:25 by Sandhya Hopson RN) History of appendectomy History of open reduction and internal fixation (ORIF) procedure Hx of cholecystectomy H/O colonoscopy H/O partial thyroidectomy Hx of heart artery stent Social History Social History (Updated 05/30/25 @ 11:05 by Chasity Meneses CMA) Household Members: Spouse Housing: House Housing Other:: mobile home Are you a primary skin care therapist to a significant other at home: No Do you presently have visiting nurse or other home services: No Alcohol intake: never Comment: using w/c due to severity of back symptoms Patient Tobacco Use Status: Never used Tobacco e-Cigarette/Vaping Use: Never Used Second Hand Smoke Exposure: Yes Use of substances other than those prescribed or required for medical reasons: Yes Substance Use Type: Marijuana Are you DNR?: No Advance Directives: No Advance Directives Information Provided: Yes service: No Current occupational status: retired and disabled Cognitive needs: No Hearing needs: Yes (Hearing aids. Did not put them in today. ) Vision needs: No Meds Allergies Allergy/AdvReac Type Severity Reaction Status Date / Time Seasonal Allergies Allergy Mild sneezing Verified 06/13/25 11:12 Home Medications ?Medication ?Instructions ?Recorded ?Confirmed ?Last Taken ?Type albuterol sulfate 2.5 mg/3 mL 2.5 mg inhalation Q4-6H PRN 01/08/25 05/29/25 Unknown History (0.083 %) solution for nebulization Shortness Of Breath Or Wheezing bictegravir 50 mg-emtricitabine 1 tab PO QPM 05/29/25 05/29/25 Unknown History 200 mg-tenofovir alafenam 25 mg tablet (Biktarvy) insulin glargine 100 unit/mL (3 25 unit subcut QPM 05/29/25 05/29/25 Unknown History mL) subcutaneous pen (Lantus Solostar U-100 Insulin) lisinopril 40 mg tablet 40 mg PO QPM 05/29/25 05/29/25 Unknown History omeprazole 20 mg capsule,delayed 20 mg PO QPM 05/29/25 05/29/25 Unknown History release Exam Pertinent Lab Results Pertinent Lab Results: Laboratory Tests 05/29/25 14:52 WBC 5.2 Hgb 13.3 L Hct 39.0 L Plt Count 242 Sodium 138 Potassium 3.4 Chloride 103 Carbon Dioxide 28 BUN 11 Creatinine 1.11 Narrative Narrative: EKG 01/2025 EKG Details: EKG with underlying sinus rhythm at 85/Min; no ischemic changes; normal MD and corrected QT. ECHO 04/2025 Conclusions: - 1. Normal LV ejection fraction of 60 65% with grade 1 diastolic dysfunction 2. Mild calcific aortic and mitral valve changes noted with normal cardiac valve with a Dopplers 3. Mildly dilated ascending aorta at 3.8 cm 4. No gross pericardial effusion XR chest 2V IMPRESSION: Right basilar subsegmental atelectasis. Per cardiac note: Lexiscan myocardial perfusion study 2019 no ischemia. Inferior attenuation artifact. Assessment and Plan Assessment Anesthesia Assessment: Chart Reviewed Documented by User: Berna Dorsey DO 06/18/25 09:41 HPI - Anesthesia Eval Anesthesia Pre-Procedure Meds Is the patient on any of the following meds?: GLP1/DPP4 PMFSH Past Medical History Medical History (Updated 05/29/25 @ 14:34 by Bella Moreira NP) Skin cancer Anxiety with depression HIV (human immunodeficiency virus infection) Anemia Osteoporosis Renal cyst COPD (chronic obstructive pulmonary disease) CAD (coronary artery disease) PAF (paroxysmal atrial fibrillation) Weight loss Hyperlipidemia Diabetes High blood pressure Family History Family History Father History of quadruple bypass Lung cancer Mother No problems noted. Family history of problems with anesthesia: No Surgical History Surgical History (Updated 06/18/25 @ 09:25 by Sandhya Hopson RN) History of appendectomy History of open reduction and internal fixation (ORIF) procedure Hx of cholecystectomy H/O colonoscopy H/O partial thyroidectomy Hx of heart artery stent History of Problems with Anesthesia: No Social History Social History (Updated 05/30/25 @ 11:05 by Chasity Meneses CMA) Household Members: Spouse Housing: House Housing Other:: mobile home Are you a primary skin care therapist to a significant other at home: No Do you presently have visiting nurse or other home services: No Alcohol intake: never Comment: using w/c due to severity of back symptoms Patient Tobacco Use Status: Never used Tobacco e-Cigarette/Vaping Use: Never Used Second Hand Smoke Exposure: Yes Use of substances other than those prescribed or required for medical reasons: Yes Substance Use Type: Marijuana Are you DNR?: No Advance Directives: No Advance Directives Information Provided: Yes service: No Current occupational status: retired and disabled Cognitive needs: No Hearing needs: Yes (Hearing aids. Did not put them in today. ) Vision needs: No Meds Allergies Allergy/AdvReac Type Severity Reaction Status Date / Time Seasonal Allergies Allergy Mild sneezing Verified 06/13/25 11:12 Home Medications ?Medication ?Instructions ?Recorded ?Confirmed ?Last Taken ?Type albuterol sulfate 2.5 mg/3 mL 2.5 mg inhalation Q4-6H PRN 01/08/25 05/29/25 Unknown History (0.083 %) solution for nebulization Shortness Of Breath Or Wheezing bictegravir 50 mg-emtricitabine 1 tab PO QPM 05/29/25 05/29/25 Unknown History 200 mg-tenofovir alafenam 25 mg tablet (Biktarvy) insulin glargine 100 unit/mL (3 25 unit subcut QPM 05/29/25 05/29/25 Unknown History mL) subcutaneous pen (Lantus Solostar U-100 Insulin) lisinopril 40 mg tablet 40 mg PO QPM 05/29/25 05/29/25 Unknown History omeprazole 20 mg capsule,delayed 20 mg PO QPM 05/29/25 05/29/25 Unknown History release Exam Exam Date and Time: 06/18/25 0940 Height,Weight and Vital Signs: Height 5 ft 9 in Weight 86.9 kg Airway Mallampati Class: II TM Dist: >3cm Neck ROM: Full Heart: S1S2 Lungs: CTAB Assessment and Plan Assessment Anesthesia Assessment: Anesthesia Plan Discussed and Chart Reviewed Final Anesthetic Review Family History of Problems with Anesthesia: No History of Problems with Anesthesia: No NPO: Yes ASA Class: III Final Preanesthetic Review: No Changes in Pt Med Stat, Meds/Allgs Chart Reviewed, Consent Obtained/Reviewed and Anes Risks/Benef Reviewed Patient Risk: Intermediate Procedure Risk: Intermediate Anesthetic Plan Anesthetic Plan: GA and Agree w/ Assess. and Plan Disposition: Standard PACU
[2025-06-18] MEDS: Albuterol Sulfate (0.083%) 2.5 MG/3 ML VIAL.NEB INHALE (09:56)
[2025-06-18] MEDS: Lactated Ringers 1,000 ML 100 ML IVCONT (09:58)
--- NOTE | 2025-06-18 11:19 | P.OP_ITS ---
Operative Note Operative Note Date of Service: 06/18/25 Narrative: Preoperative Diagnosis: L4-5 spinal stenosis/lateral recess stenosis Operation: Left L4-5 Laminotomy, Partial facetectomy and foraminotomy with use of microscope Consent Informed Consent was obtained for this operation. I have explained the nature, purpose and benefits of the operation. I have discussed the risks and benefit of the operation including possible complications or adverse events with patient/family. Alternative(s) were discussed with the patient with their relative benefits and risks as well as the consequences of not accepting the operation were included in obtaining consent. Surgeon: REMI MCKEON MD, PHD Procedure Assisted By: Kwesi Keller Description of Procedure This patient is suffering from a left lumbar radiculopathy. MRI shows L4-5 lateral recess stenosis that a calcified disc herniation compressing the L5 nerve root. The patient was offered a decompression. The procedure complications were explained. The patient was consented. The patient was brought to the operat ing room and endotracheally intubated. The patient was turned in prone position on the Lazaro frame. Prep and drape was done followed by timeout. The Physician preschool teacher assistant provided access. A mid lumbar incision was made followed by release of the paravertebral muscle on the left side to expose the L4-5 lamina and facet joints. An intraoperative x-ray was obtained to confirm the correct level. The microscope was brought in. I took over the procedure. The high-speed drill was used to do a L4 laminotomy until flavum ligament was reached. A #2 Kerrison was used to expand the laminotomy near flush to the pedicles and to include a partial facetectomy. The flavum ligament was opened and resected with a #3 Kerrison to decompress the underlying thecal sac. The flavum ligament was removed to decompress the lateral recess and the exiting L5 nerve root. A long nerve hook could be easily passed along the medial side of the pedicle as a sign of adequate decompression. The microscope was removed. Hemostasis was done. The physician preschool teacher assistant close the Incision in 2 layers. Steri-Strips were used to approximate incision. An OpSite with Tegaderm was used to cover the incision. All sponge needle counts were correct. Patient was extubated and transported in stable is to recovery room. Anesthesia: General Estimated Blood Loss (ml): 20 Complications: None Duration of Surgery: Under 60 Minutes Postoperative Plan: Discharge to home
--- NOTE | 2025-06-18 11:28 | PM.DS ---
DS: Providers Provider Date of Service: 06/18/25 Date of discharge: 06/18/25 Primary care physician: Mirian Bermudez PA-C Admitting clinician: Danilo Cummins DS: Diagnosis Discharge Diagnosis (1) Lumbar pain with radiation down left leg: Status: Acute DS: Summary Time Attestation Discharge Coordination Time (in mins): 5 Quality: Safe Use of Opioids Does Pt have an Active Cancer Diagnosis on the Problem List?: No Quality: Stroke Does the patient have a stroke diagnosis?: No Physical Exam Vital Signs: Vital Signs: Last Vital Signs Temp 97.6 F 06/18/25 09:47 Pulse 67 06/18/25 09:58 Resp 15 06/18/25 09:58 BP 131/59 L 06/18/25 09:47 Pulse Ox 98 06/18/25 09:47 O2 Del Method Room Air 06/18/25 09:47 BMI result Body Mass Index 28.3 DS: Data Data Completed and Pending Labs on day of discharge: Laboratory Results - last 24 hr 06/18/25 09:32 POC Glucose 94 Discharge Plan Discharge Patient Disposition: Home, Self-Care Referrals: Mirian Bermudez PA-C [Primary Care Provider, Endocrinology] - 1 Week Discharge Medications: New docusate sodium [Colace] 100 mg capsule 100 mg PO BID Qty: 20 0RF oxycodone 5 mg tablet 5 mg PO Q4H PRN (Reason: pain) Qty: 20 0RF Rx Instructions: Partial Fill upon patient request. Continued trazodone 50 mg tablet 50 mg PO BEDTIME Qty: 90 0RF metformin 1,000 mg tablet 1,000 mg PO BID Qty: 180 0RF Incruse Ellipta 62.5 mcg/actuation blister with device 1 inh inhalation DAILY Qty: 30 3RF Trulicity 3 mg/0.5 mL pen injector 3 mg subcut QWEEK Qty: 2 5RF atorvastatin 40 mg tablet 40 mg PO BEDTIME Qty: 90 0RF escitalopram oxalate 10 mg tablet 10 mg PO QPM Qty: 90 3RF ferrous gluconate 324 mg (37.5 mg iron) tablet 324 mg PO QPM Qty: 90 0RF ascorbic acid (vitamin C) [Vitamin C] 500 mg Tablet 500 mg PO DAILY Qty: 90 0RF Rx Instructions: Take 1 tablet by mouth daily together with ferrous gluconate folic acid 1 mg Tablet 1 mg PO DAILY Qty: 90 1RF cyanocobalamin (vitamin B-12) 1,000 mcg Lozenge 1,000 mcg SUBLINGUAL DAILY Qty: 90 1RF Biktarvy 50-200-25 mg Tablet 1 tab PO QPM omeprazole 20 mg capsule,delayed release(DR/EC) 20 mg PO QPM lisinopril 40 mg tablet 40 mg PO QPM insulin glargine [Lantus Solostar U-100 Insulin] 100 unit/mL (3 mL) insulin pen 25 unit subcut QPM (DME) pen needle, diabetic 32 gauge x /32 needle See Rx Instructions .ROUTE .MEDSUPPLY Qty: 100 3RF Rx Instructions: Use BID As directed albuterol sulfate 90 mcg/actuation HFA aerosol inhaler 2 puff inhalation Q6H PRN (Reason: shortness of breath or wheezing) Qty: 8.5 3RF glucose [Dex4 Glucose Quick Dissolve] 4 gram tablet,chewable 16 g PO Q15M PRN (Reason: hypoglycemia) Qty: 10 3RF Rx Instructions: until symptoms of low blood sugar are controlled (DME) FreeStyle Charlie 3 [place] Misc See Rx Instructions .ROUTE .MEDSUPPLY Qty: 1 0RF Rx Instructions: Use daily to monitor blood glucose levels continuously. (DME) FreeStyle Charlie 3 Plus Sensor Device See Rx Instructions .ROUTE .MEDSUPPLY Qty: 2 11RF Rx Instructions: Apply 1 new sensor every 15 days as directed to monitor blood glucose continuously. ipratropium-albuterol 0.5 mg-3 mg(2.5 mg base)/3 mL solution for nebulization 3 ml inhalation Q6H PRN (Reason: wheezing) Qty: 180 0RF albuterol sulfate 2.5 mg /3 mL (0.083 %) solution for nebulization 2.5 mg inhalation Q4-6H PRN (Reason: Shortness Of Breath Or Wheezing) fluticasone furoate-vilanterol [Breo Ellipta] 100-25 mcg/dose blister with device 1 inh inhalation DAILY Qty: 60 6RF gabapentin 300 mg capsule 900 mg PO TID 30 Days Qty: 270 11RF Discharge Orders: Discharge Order (Routine); Ordered 06/18/25 Ordered By: Kwesi Isaacs Diet: Advance to usual diet Activity on Discharge: As tolerated Activity Restrictions/Additional Instructions: After your spinal surgery we ask you to observe the following restrictions/guidelines: Activity: It is normal to feel some discomfort as you increase your activity, but that will improve with time. We ask you avoid heavy lifting or acitivities that cause pain. As a general rule, 8lbs is a safe limit for lifting right after surgery. Walk as much as you feel comfortable but not to exhaustion. You will feel extra tired the first few days after surgery. Stay well hydrated. It is OK to walk up and down stairs You may return to driving when you are off narcotics (such as vicodin, oxycodone, dilaudid, etc), and you are back to normal functional capacity. If you have any concerns please check with office before driving. Return to work is specific to each patient and each surgery, so please speak with your doctor/PA at first follow up. Please bring paperwork such as FMLA at that time if you need it filled out. Medications: For optimum pain control, it is best to start with a combination of 500 mg of Tylenol every 4 hours with 600 mg of Motrin every 8 hours, and use narcotics as needed in between for breakthrough pain. We will give you a short supply of narcotics after surgery (usually one weeks worth). If you need more please call the office but do not use more than prescribed. You will need to give our office 48 hours notice if you need narcotics refilled and we do not fill narcotics on weekends or evenings. If you are on a narcotic, it is a good idea to take a stool softener such as colace or senna to avoid constipation If you take blood thinner such as aspirin, Plavix, Coumadin, Effient, Eliquis etc for conditions such as Afib, DVT, Pulmonary embolus, coronary disease, stents etc please speak with your surgeon about specific details as to when you can resume these medications. Follow up: Please call the office, , after surgery to arrange a 3 week follow up for wound check. Wound Care: You may remove your dressing on the first day after surgery. ?You may ?leave open to air. Please do not remove the steri strips underneath. they will fall off on their own in one week. IT IS NORMAL FOR THE WOUND TO OOZE OR BE BLOODY FOR A FEW DAYS AFTER SURGERY. ?IF THIS HAPPENS JUST PLACE NEW DRESSING OVER IT TO AVOID STAINING CLOTHES. You may shower on post op day # 1 We ask that you do not let the water soak the wound. If it does get wet, just towel dry lightly. Please do not scrub your incision or place any type of chemical/ointment on the wound. No tub baths, pools or jacuzzis for one month. If you have any leaking or redness from your wound, or fevers, please call office Print Language: Hebrew
== END 2025-06-18 12:53 | disposition home or self-care (01) ==
PROVIDERS: PCP Physician Assistant; Visit Provider Neurological Surgery
PROC: (CPT 63047; principal; 2025-06-18 11:10)
DX: M48.062 Spinal stenosis, lumbar region with neurogenic claudication (principal); M54.50 Low back pain, unspecified; M79.605 Pain in left leg; M81.0 Age-related osteoporosis without current pathological fracture; I25.10 Atherosclerotic heart disease of native coronary artery without angina pectoris; Z95.5 Presence of coronary angioplasty implant and graft; B20 Human immunodeficiency virus [HIV] disease; D64.9 Anemia, unspecified; I10 Essential (primary) hypertension; E11.9 Type 2 diabetes mellitus without complications; I48.0 Paroxysmal atrial fibrillation; J44.9 Chronic obstructive pulmonary disease, unspecified; J30.2 Other seasonal allergic rhinitis; F41.9 Anxiety disorder, unspecified; Z79.4 Long term (current) use of insulin; Z79.899 Other long term (current) drug therapy; Z98.890 Other specified postprocedural states
CPT/HCPCS: 63047; 82947; 94640; J0131; J0690; J1100; J1885; J2250; J2405; J2704; J3010

== ENCOUNTER → 2025-06-18 09:11 | Outpatient (BNV) | payer MEDICARE, SELFPAY | PROVIDERS: PCP Physician Assistant; Visit Provider Neurological Surgery | DX: M54.50 Low back pain, unspecified (principal); M79.605 Pain in left leg; M54.16 Radiculopathy, lumbar region | CPT/HCPCS: 63047; 99499 ==

== ENCOUNTER 2025-06-19 14:51 | Outpatient (AMB) | payer MEDICARE, SELFPAY ==
[2025-06-19 14:53] VITALS: BP 132/68; PULSE 65; O2SAT 97; BMI 28.0
--- NOTE | 2025-06-19 14:53 | MHC.OFFVIS ---
Vital Signs 06/19/25 14:53 Height 5 ft 9 in Weight 189 lb 6 oz BMI 28.0 BP 132/68 Blood Pressure Location Rt brachial Position Sitting Pulse 65 Pulse Source Pulse Oximeter Pulse Oximetry (%) 97 Oxygen Delivery Method Room Air Intake Visit Reasons: copd Allergies Seasonal Allergies Allergy (Mild, Verified 06/19/25 14:56) sneezing HPI HPI copd: Details: Kvng is pleasant 69 year old male, never smoker, mild COPD, prostate cancer, DMII, HIV and CAD. He reports that his breathing has been good and is diligent with his daily Breo and Incruse inhalers but has been negligent with his nebulizer treatments. He cannot recall the last time he used his rescue inhaler. He reports a minimal cough with a small amount of clear sputum, minimal subjective wheezing, and has not experienced significant shortness of breath, though his activity has been limited post-operatively, underwent spinal surgery yesterday. He has a history of neglecting his prescribed inhalers for years and has only recently become adherent. The patient is a never-smoker of cigarettes but smokes medical marijuana daily for chronic pain and anxiety. His pain is located in his back, knee, ankle, and shoulder. He has tried edibles in the past without much effect. His medical history is significant for type 2 diabetes, for which he takes Trulicity. He was instructed to hold the medication for his recent surgery and has been without it for almost two weeks, although his blood glucose has been relatively controlled. Today he presents to review chest CT results. He denies any visits to urgent care or hospitalizations respiratory distress since the last visit. [facility] Medical History (Updated 06/19/25 @ 15:39 by Maria Isabel Ortiz NP) Skin cancer Anxiety with depression HIV (human immunodeficiency virus infection) Anemia Osteoporosis Renal cyst COPD (chronic obstructive pulmonary disease) CAD (coronary artery disease) PAF (paroxysmal atrial fibrillation) Weight loss Hyperlipidemia Diabetes High blood pressure Surgical History (Updated 06/18/25 @ 09:25 by Sandhya Hopson RN) History of appendectomy History of open reduction and internal fixation (ORIF) procedure Hx of cholecystectomy H/O colonoscopy H/O partial thyroidectomy Hx of heart artery stent Family History Father History of quadruple bypass Lung cancer Mother No problems noted. Social History Household Members: Spouse Housing: House Housing Other:: mobile home Are you a primary youth care professional to a significant other at home: No Do you presently have visiting nurse or other home services: No Alcohol intake: never Comment: using w/c due to severity of back symptoms Patient Tobacco Use Status: Never used Tobacco e-Cigarette/Vaping Use: Never Used Second Hand Smoke Exposure: Yes Substance Use Type: Marijuana service: No Current occupational status: retired and disabled Cognitive needs: No Hearing needs: Yes (Hearing aids. Did not put them in today. ) Vision needs: No Review of Systems Const Denies chills, Denies excessive sweating, Denies fever(s), Denies headache(s) and Denies night sweats Eyes Denies dry eyes, Denies irritation and Denies itchy eyes ENT Reports Normal hearing present, Denies headache(s), Denies nasal congestion, Denies nasal discharge, Denies post nasal drip and Denies sore throat Card Denies chest pain, Denies chest pain at rest, Denies chest pain with activity, Denies claudication, Denies leg edema, Denies orthopnea and Denies paroxysmal nocturnal dyspnea Resp Denies chest congestion, Reports cough, Denies hemoptysis, Denies excessive phlegm production, Denies pain on inspiration, Denies pain with cough and Denies stridor Musc Denies myalgias Neuro Reports Normal hearing present and Denies headache(s) Endo Denies excessive sweating Constantine/Lymph Denies lymphadenopathy Aller/Immun Denies itchy eyes and Denies seasonal rhinorrhea Physical Exam Vital Signs: Last Vital Signs Pulse 65 06/19/25 14:53 BP 132/68 06/19/25 14:53 Pulse Ox 97 06/19/25 14:53 Oxygen Delivery Method Room Air 06/19/25 14:53 BMI result Body Mass Index 28.0 Const General: cooperative, healthy appearing, comfortable, no acute distress, well developed and alert Orientation/consciousness: patient oriented x3 Limitations: no limitations HEENT Head: Yes normal to inspection, Yes normocephalic and Yes atraumatic Ears: external ears normal Eyes General: appearance normal, both eyes and all related structures Eyelids: Yes eyelids normal Sclerae: sclerae normal EOM: EOMs intact bilaterally Neck Neck: Yes normal visual inspection and Yes no lymphadenopathy Lymphatic: no lymphadenopathy noted Chest Chest palpation & inspection: normal inspection of the chest Resp Effort & Inspection: normal respiratory effort, able to speak in complete sentences, no audible wheezes, no cough, no stridor, not tachypneic, no tripod positioning and no use of accessory muscles Auscultation: wheezes and diminished lung sounds Cardio Jugular venous distension: no JVD Rate: regular rate Rhythm: regular rhythm Skin Other: warm, dry General skin exam: no rashes or lesions noted Neuro General: patient oriented x3 Cranial nerves: Yes Normal hearing present Cognition (Neuro): normal cognition Gait exam (Neuro): Normal gait present Extrem General: Yes normal to inspection, Yes capillary refill normal, Yes no clubbing, cyanosis or edema and Yes no pedal edema Psych Appearance: grossly normal and well kempt Speech and movement: Normal speech and movement present and Clear speech present Affect: normal affect Attitude: cooperative Thought process: Normal thought process present Thought content: Normal thought content present Insight: Good insight present (Psych) Judgement: Good judgement present (Psych) Results Reviewed Results Reviewed: [address] [address] [address] Scan Report Signed Patient: Kvng Ayala Jr MR#: [id number] : 1955 Acct:[id number] Age/Sex: 69 / M ADM Date: 06/03/25 Loc: .CT Attending Dr: Maria Isabel Ortiz NP Ordering Physician: Maria Isabel Ortiz NP Date of Service: 06/03/25 Procedure(s): CT chest wo IV con Accession Number(s): [id number] cc: Maria Isabel Alston NP~ Report Number: [id number]: Total DLP = 195.00 mGy-cm Reason for Exam: Z21 - Asymptomatic human immunodeficiency virus [HIV] infection status EXAMINATION: CT CHEST WITHOUT IV CONTRAST INDICATION: Z21 - Asymptomatic human immunodeficiency virus [HIV] infection status COMPARISON: Previous chest x-ray April 2025 TECHNIQUE: Helical CT scan of the chest was performed without intravenous contrast. Coronal and sagittal reformatted images were generated and reviewed. This CT exam was performed with one or more of the following dose reduction techniques: automated exposure control, adjustment of the mA and/or kV according to patient size, use of iterative reconstruction technique. DLP: 195 mGy-cm CHEST: THYROID: No thyroid nodules. Small calcifications or surgical clips adjacent to the thyroid gland. LUNGS: Mild paraseptal emphysema. Scattered areas of bronchial wall thickening. There 6 mm slightly irregular spiculated left upper lobe nodule adjacent to bronchial wall thickening axial image 167 series 6. This is adjacent linear subsegmental atelectasis. Similar appearing 3 x 5 mm right upper lobe nodule adjacent to the area of bronchiectasis and linear scarring axial image 142 series 6. Small micronodules largest in 3 mm calcified left upper lobe nodule axial image 155 series 6. Small left lower lobe cyst measuring 1.5 cm axial image 389 series 6. MEDIASTINUM: Small mediastinal lymph nodes. No enlarged lymph nodes. SHAUN: Evaluation of the hilar regions is limited by lack of intravenous contrast material. There are small bilateral supraclavicular lymph nodes. CARDIOVASCULATURE: The heart is normal in size. There is a trace pericardial effusion. The thoracic aorta is upper normal in size. DEGREE OF CORONARY CALCIFICATION: severe PLEURA: There is no pleural effusion. No pneumothorax. MAIN AIRWAYS: The mainstem bronchi and proximal branches are patent. AXILLA: There is no axillary lymphadenopathy. No chest wall mass. BONES AND SOFT TISSUES: There is a foreign body in the left anterior chest wall suggestive of a BB. Degenerative changes of the spine. Slight loss of height of the T8 vertebral body questionable for old mild compression fracture. Old right 12th rib fracture. UPPER ABDOMEN: Atherosclerotic disease. 2 low attenuation right renal lesions probably representing cysts. Spleen not completely visualized but may be prominent. CT/CT chest wo IV con IMPRESSION: Mild paraseptal emphysema. Scattered areas of bronchial wall thickening. Bilateral upper lobe nodules largest measuring 6 mm in the left upper lobe adjacent to areas of bronchial wall thickening and linear scarring or subsegmental atelectasis. Severe coronary artery calcification. Fleischner Criteria for pulmonary nodule follow-up SOLID NODULES: Low risk patient: <6mm: no follow-up 6-8mm: 6 month follow-up CT >8mm: PET/Biopsy/ 3 month follow-up CT High risk patient: <6mm: 12 month follow-up CT 6-8mm: 6 month follow-up CT >8mm: PET/Biopsy/ 3 month follow-up CT SUB-SOLID/GROUNDGLASS NODULES: All patients: > or = 6mm: 6 month follow-up CT *Please note that in patients in the following categories, the Fleischner criteria do not apply: Immunocompromised, lung cancer screening population, age below 35, and patients with known malignancy Electronically signed by: Gay Avina MD 06/03/2025 10:48 AM EST Dictated By: Gay Avina MD Signed By: <Electronically signed by Gay Avina MD in OV> Assessment & Plan Assessment & Plan (1) COPD (chronic obstructive pulmonary disease): Code(s): J44.9 - Chronic obstructive pulmonary disease, unspecified Category: Medical (2) Multiple pulmonary nodules: Code(s): R91.8 - Other nonspecific abnormal finding of lung field Category: Medical Plan Again patient with persistent wheezing on examination. We discussed the plan to start a 12-day course of prednisone to reduce the inflammation, in addition Breo, Incruse and nebulized therapy. Cautioned him that prednisone can elevate blood sugar levels and advised him to resume his Trulicity and monitor his glucose closely. Strongly recommended that he consider switching to edible forms of marijuana instead of smoking to reduce lung irritation, and he was receptive to this suggestion. Reviewed the findings of his recent CT scan, explaining the presence of a 6 mm lung nodule that requires monitoring with a repeat scan in six months. Also explained the other findings, including emphysema, old fractures, and severe coronary artery calcification, noting that his cardiology team is managing the latter. Instructed him to schedule a follow-up with me in three months, to call if his symptoms worsen, and to seek emergency care for any severe shortness of breath. All questions were answered and patient is in agreement of plan. Orders: Orders CT chest wo IV con 5 Months R91.8 - Other nonspecific abnormal finding of lung field Medications: New prednisone see taper instructions; 40 mg Daily x3 days, 30 mg daily x3 days, 20 mg daily x3 days, 10 mg daily x3 days 10 mg PO DIRECTED 30 tabs 0RF Coding Level of Care Code Est Pt Level 4 (77574) Add On Problem Visit Only Diagnoses COPD (chronic obstructive pulmonary disease) J44.9 Multiple pulmonary nodules R91.8
--- OUTSIDE RECORDS SUMMARY | 2025-06-19 23:24 | XMS_ITS | Encounter Summary ---
Author Organization [facility] Address [address] [place] [address] Care Team Providers Care Director Of Instruction Name Role Phone Romero Licea MD Primary Care Provi clifton Shana Mike PATIENT ADMITTING REPRESENTATIVE Unavailable [phone] Julius Canseco MD Unavailable [phone] Encounter Details Date Type Department Care Team (Late st Contact Info) Description 10/22/2021 Procedure Pass [facility] Surgery [address] [place] [address] Social History Tobacco Use Types [...] on filedocumented in this encounter Care Teams Director Of Instruction Relationship Specialty Start Date End Date Romero Licea MD [address] [place] [address] PCP - General Family Medicine 08/03/21 Shana Mike NP [address] [place] [address] Nurse Practitioner Physical Medicine and Rehabilitation 11/15/22 Julius Canseco MD [address] [place], [place] [phone] Consulting Physician Physical Medicine and Rehabilitation 04/11/23 documented as of this encounter
--- OUTSIDE RECORDS SUMMARY | 2025-06-19 23:24 | XMS_ITS | Encounter Summary ---
Author Organization [facility] Address [address] [place] [address] Care Team Providers Care Retail Training Manager Name Role Phone Romero Licea MD Primary Care Provi clifton Shana Mike FILTER MACHINE OPERATOR Unavailable [phone] Julius Canseco MD Unavailable [phone] Encounter Details Date Type Department Care Team (Late st Contact Info) Description 01/21/2022 Procedure Pass [facility] Surgery [address] [place] [address] Social History Tobacco Use Types [...] filedocumented in this encounter Care Teams Retail Training Manager Relationship Specialty Start Date End Date Romero Licea MD [address] [place] [address] PCP - General Family Medicine 08/03/21 Shana Mike NP [address] [place], [place] [id number] Nurse Practitioner Physical Medicine and Rehabilitation 11/15/22 Julius Canseco MD [address] [place] [address] Consulting Physician Physical Medicine and Rehabilitation 04/11/23 documented as of this encounter
--- OUTSIDE RECORDS SUMMARY | 2025-06-19 23:24 | XMS_ITS | Encounter Summary ---
Author Organization [facility] Address [address] [place] [address] Care Team Providers Care Union Organiser Name Role Phone Romero Licea MD Primary Care Provi clifton Shana Mike DIVER HELPER Unavailable [phone] Julius Canseco MD Unavailable Encounter Details Date Type Department Care Team (Late st Contact Info) Description 04/25/2023 Procedure Pass [facility] Surgery [address] [place] [address] Social History Tobacco Use Types [...] on filedocumented in this encounter Care Teams Union Organiser Relationship Specialty Start Date End Date Romero Licea MD [address] [place], [place] [phone] PCP - General Family Medicine 08/03/21 Shana Mike NP [address] [place], [place] [phone] Nurse Practitioner Physical Medicine and Rehabilitation 11/15/22 Julius Canseco MD [address] [place] [address] Consulting Physician Physical Medicine and Rehabilitation 04/11/23 documented as of this encounter
--- OUTSIDE RECORDS SUMMARY | 2025-06-19 23:24 | XMS_ITS | Encounter Summary ---
Author Organization [facility] Address [address] [place] [address] Care Team Providers Care Cell Pourer Name Role Phone Ubaldo Spring MD Primary Care Provider [phone] Romero Licea MD Primary Care Provi clifton Shana Mike NP Unavailable [phone] Julius Canseco MD Unavailable Encounter Details Date Type Department Care Team (Late st Contact Info) Description 09/23/2017 Procedure Pass [facility] Endoscopy [address] [place] [address] Social History Tobacco Use Types [...] on filedocumented in this encounter Care Teams Cell Pourer Relationship Specialty Start Date End Date Ubaldo Spring MD PCP - General Family Medicine 09/20/17 08/02/21 Romero Licea MD [address] [place] [address] PCP - General Family Medicine 08/03/21 Shana Mike NP [address] [place], [place] [phone] Nurse Practitioner Physical Medicine and Rehabilitation 11/15/22 Julius Canseco MD [address] [place], [place] [phone] Consulting Physician Physical Medicine and Rehabilitation 04/11/23 documented as of this encounter
--- OUTSIDE RECORDS SUMMARY | 2025-06-19 23:24 | XMS_ITS | Encounter Summary ---
Author Organization [facility] Address [address] [place] [address] Care Team Providers Care Support Team Member Name Role Phone Romero Licea MD Primary Care Provi clifton Shana Mike SURVEILLANCE SYSTEMS ANALYST Unavailable [phone] Julius Canseco MD Unavailable Encounter Details Date Type Department Care Team (Late st Contact Info) Description 10/08/2021 Procedure Pass [facility] Surgery [address] [place] [address] Social History Tobacco Use Types [...] filedocumented in this encounter Care Teams Support Team Member Relationship Specialty Start Date End Date Romero Licea MD [address] [place] [address] PCP - General Family Medicine 08/03/21 Shana Mike NP [address] [place] [address] Nurse Practitioner Physical Medicine and Rehabilitation 11/15/22 Julius Canseco MD [address] [place], [place] [phone] Consulting Physician Physical Medicine and Rehabilitation 04/11/23 documented as of this encounter
--- OUTSIDE RECORDS SUMMARY | 2025-06-19 23:24 | XMS_ITS | Clinical Summary ---
[facility] Organization [facility] Address [address] [place] [address] Care Team Providers Care Gas Furnace Installer Name Role Phone Romero Licea MD Primary Care Provi clifton Shana Mike NP Unavailable [phone] Julius Canseco MD Unavailable [phone] Allergies No known active allergies Medications metFORMIN [...] (10/06/2021): Added automatically from request for surgery [id number] Lumbar radiculopathy 10/05/2021 Overview (10/05/2021): Added automatically from request for surgery [id number] Fever 09/23/2017 Asthma 09/21/2017 HIV (human immunodeficiency virus infection) COPD (chronic obstructive pulmonary disease) Hypertension 09/21/2017 Polycythemia 09/21/2017 Hyponatremia 09/21/2017 Dehydration 09/20/[address] scan, stomach 09/20/2017 Overview (09/23/2017): Added automatically from request for surgery [id number] Social History Tobacco Use Types Packs/Day Years [...] A1C 8.5(H) <=5.7 % 09/21/2017 9:55 AM [facility] EAG 197.3 mg/dL 09/21/2017 9:55 AM [facility] Blood BLOOD SPECIMEN / Unknown Venipuncture / Unknown 09/21/2017 4:[address] [facility] 09/21/2017 4:57 AM MST Narrative [facility] - 09/21/2017 9:[address] [facility] The [place] Diabetes Association (ADA) guidelines for interpreting Hemoglobin A1C are as follows: Non-Diabetic patient: <5.7% Increased risk for future Diabetes: 5.7-6.4% ADA diagnostic criteria for Diabetes: >6.4% Values for patients with Diabetes: Result <7.0%: Meets ADA's recommendation goal for therapy. Result 7.0-8.0%: Exceeds ADA's recommended goal. Result >8.0%: ADA recommends reevaluation of therapy. us Dre Perez MD LAB BLOOD ORDERABLES Bess chavez Result [facility] [address] [id number], [facility] [phone] from Last 3 Months or Most Recently Relevant to Health Maintenance Insurance [facility] MEDICARE ADVANTAGE [facility] MEDICARE ADVANTAGE [employer] MEDICARE ADVANTAGE CIGNA MEDICARE ADVANTAGE Advance Directives For more information, please contact: [phone] * Full Code (Latest Code Status on File) Date Activated Date Inactivated Comments 09/20/2017 8:25 PM 09/26/2017 4:14 PM Care Teams Gas Furnace Installer Relationship Specialty Start Date End Date Romero Licea MD [address] [place] [address] PCP - General Family Medicine 08/03/21 Shana Mike NP [address] [place] [address] Nurse Practitioner Physical Medicine and Rehabilitation 11/15/22 Julius Canseco MD [address] [place] [address] Consulting Physician Physical Medicine and Rehabilitation 04/11/23
--- OUTSIDE RECORDS SUMMARY | 2025-06-19 23:24 | XMS_ITS | Encounter Summary ---
Author Organization [facility] Address [address] [place] [address] Care Team Providers Care Spanish Linguist Name Role Phone Romero Licea MD Primary Care Provider Shanae Zarate MD Unavailable Princess Monroy CRITICAL CARE PHYSICIAN ASSISTANT Unavailable Luh NashD Unavailable Cathy Tee RN Unavailable Romero Licea MD Unavailable Renee Mora DO Unavailable Renee Mora DO Primary Care Provider Reason for Visit * Reason Comments Med Refill Encounter Details Date Type Department Care Team (Late st Contact Info) Description 05/04/2019 Refill [facility] [address] [place], [place] [address] Nirmal Huizar MD [address] [place] [address] Social History Tobacco Use Types Packs/Day Years [...] on filedocumented in this encounter Care Teams Spanish Linguist Relationship Specialty Start Date End Date Romero Licea MD PCP - General Family Medicine 06/27/19 05/27/24 Romero Licea MD [address] [place] [address] PCP - Medicare Advantage - Attributed PCP 10/09/22 07/10/23 Renee Mora DO [address] [place] [address] PCP - Medicare Advantage - Attributed PCP 07/11/23 06/09/24 Renee Mora DO [address] [place] [address] PCP - General Family Medicine 06/04/24 Shanae Zarate MD [address] [facility] [address] Consulting Physician Cardiology 10/13/20 Princess Monroy LCSW [address] [place] [address] Mfg Assoc Feather Trimmer 10/31/20 05/27/24 Luh Nash, HunterD [address] [place] [address] Clinical Pharmacist Pharmacy 11/24/20 03/04/22 Cathy Tee, KAMERON [address] [place] [address] [place] [address] Shaker Screen Operator ( Nurse) Care Management 08/17/21 documented as of this encounter
--- OUTSIDE RECORDS SUMMARY | 2025-06-19 23:24 | XMS_ITS | Encounter Summary ---
Author Organization [facility] Address [address] [place] [address] Care Team Providers Care Marinator Name Role Phone Romero Licea MD Primary Care Provider Shanae Zarate MD Unavailable Princess Monroy CATHETER FINISHER AND INSPECTOR Unavailable [phone] Luh NashD Unavailable Cathy Tee RN Unavailable Romero Licea MD Unavailable Renee Mora DO Unavailable Renee Mora DO Primary Care Provider Reason for Visit * Reason Comments Med Refill Encounter Details Date Type Department Care Team (Late st Contact Info) Description 06/27/2019 Refill [facility] [address] [place], [place] [address] Nirmal Huizar MD [address] [place] [address] Social History Tobacco Use Types Packs/Day Years Used Date Smoking Tobacco: Never Assessed Sex and Gender Information Value Date Recorded Sex Assigned at Not on file Legal Sex Male 1:57 AM [facility] Gender Identity Not on file Sexual Orientation Not on file documented as of this encounter Plan of Treatment Not on file documented as of this encounter Visit Diagnoses Not on filedocumented in this encounter Care Teams Marinator Relationship Specialty Start Date End Date Romero Licea MD PCP - General Family Medicine 06/27/19 05/27/24 Romero Licea MD [address] [place] [address] PCP - Medicare Advantage - Attributed PCP 10/09/22 07/10/23 Renee Mora DO [address] [place] [address] PCP - Medicare Advantage - Attributed PCP 07/11/23 06/09/24 Renee Mora DO [address] [place] [address] PCP - General Family Medicine 06/04/24 Shanae Zarate MD [address] [facility] [address] Consulting Physician Cardiology 10/13/20 Princess Monroy LCSW [address] [place] [address] Metal Leaf Layer Manager Sign 10/31/20 05/27/24 Luh Nash, HunterD [address] [place] [address] Clinical Pharmacist Pharmacy 11/24/20 03/04/22 Cathy Tee, KAMERON [address] [place] [address] [place] [address] Commercial Lines Account Executive ( Nurse) Care Management 08/17/21 documented as of this encounter
--- OUTSIDE RECORDS SUMMARY | 2025-06-19 23:24 | XMS_ITS | Encounter Summary ---
Author Organization [facility] Address [address] [place] [address] Care Team Providers Care Plater Production Name Role Phone Romero Licea MD Primary Care Provider Shanae Zarate MD Unavailable Princess Monroy ELASTIC ATTACHER COVERSTITCH Unavailable [phone] Luh NashD Unavailable Cathy Tee RN Unavailable Romero Licea MD Unavailable Renee Mora DO Unavailable Renee Mora DO Primary Care Provider Reason for Visit * Reason Comments Med Refill Encounter Details Date Type Department Care Team (Late st Contact Info) Description 05/25/2019 Refill [facility] [address] [place], [place] [address] Nirmal Huizar MD [address] [place] [address] Social History Tobacco Use Types Packs/Day Years Used Date Smoking Tobacco: Never Assessed Sex and Gender Information Value Date Recorded Sex Assigned at Not on file Legal Sex Male 1:57 AM [facility] Gender Identity Not on file Sexual Orientation Not on file documented as of this encounter Plan of Treatment Not on file documented as of this encounter Visit Diagnoses Not on filedocumented in this encounter Care Teams Plater Production Relationship Specialty Start Date End Date Romero Licea MD PCP - General Family Medicine 06/27/19 05/27/24 Romero Licea MD [address] [place] [address] PCP - Medicare Advantage - Attributed PCP 10/09/22 07/10/23 Renee Mora DO [address] [place] [address] PCP - Medicare Advantage - Attributed PCP 07/11/23 06/09/24 Renee Mora DO [address] [place] [address] PCP - General Family Medicine 06/04/24 Shanae Zarate MD [address] [place] [address] Consulting Physician Cardiology 10/13/20 Princess Monroy LCSW [address] [place] [address] Fish Roe Technician Animal Assistant 10/31/20 05/27/24 Luh Nash, HunterD [address] [address] [place] [address] Clinical Pharmacist Pharmacy 11/24/20 03/04/22 Cathy Tee, KAMERON [address] [place] [address] [place] [address] Wooden Fence Erector ( Nurse) Care Management 08/17/21 documented as of this encounter
--- OUTSIDE RECORDS SUMMARY | 2025-06-19 23:24 | XMS_ITS | Encounter Summary ---
Author Organization [facility] Address [address] [place] [address] Care Team Providers Care Data Virtualization Consultant Name Role Phone Shanae Zarate MD Unavailable Renee Mora DO Primary Care Provider [phone] Reason for Visit * Reason Comments Med Refill Encounter Details Date Type Department Care Team (Late st Contact Info) Description 06/23/2024 Refill [facility] [address] [place] [address] [place] [address] [place] [address] [address] [place] [address] Diabetic polyneuropathy associated with type 2 diabetes mellitus ([facility]/HCC) Social History Tobacco Use Types Packs/Day [...] How often do you attend chur or gnosticist services? Patient declined 07/21/2022 Do you belong to any clubs o r organizations such as methodist groups, unions, fraternal or athletic groups, or [...] Risk (PHQ2) Score 0 [facility] - Occupational Stress Questionnaire Answer Date [...] documented as of this encounter Care Teams Data Virtualization Consultant Relationship Specialty Start Date End Date Renee Mora DO [address] [place], [place] [id number] PCP - General Family Medicine 06/04/24 Shanae Zarate MD [address] [place] [address] Consulting Physician Cardiology 10/13/20 documented as of this encounter
--- OUTSIDE RECORDS SUMMARY | 2025-06-19 23:24 | XMS_ITS | Encounter Summary ---
Author Organization [facility] Address [address] [place] [address] Care Team Providers Care Gluing Machine Operator Electronic Name Role Phone Romero Licea MD Primary Care Provi clifton Shana Mike INTEGRATION SPECIALIST Unavailable [phone] Julius Canseco MD Unavailable Encounter Details Date Type Department Care Team (Late st Contact Info) Description 04/11/2023 Procedure Pass [facility] Surgery [address] [place], [place] [...] on filedocumented in this encounter Care Teams Gluing Machine Operator Electronic Relationship Specialty Start Date End Date Romero Licea MD [address] [place], [place] [id number] PCP - General Family Medicine 08/03/21 Shana Mike NP [address] [place], [place] [id number] Nurse Practitioner Physical Medicine and Rehabilitation 11/15/22 Julius Canseco MD [address] [place] [address] Consulting Physician Physical Medicine and Rehabilitation 04/11/23 documented as of this encounter
--- OUTSIDE RECORDS SUMMARY | 2025-06-19 23:24 | XMS_ITS | Encounter Summary ---
Author Organization [facility] Address [address] [place] [address] Care Team Providers Care Exhauster Name Role Phone Shanae Zarate MD Unavailable Renee Mora DO Primary Care Provider [phone] Reason for Visit * Reason Comments Med Refill Encounter Details Date Type Department Care Team (Late st Contact Info) Description 07/15/2024 Refill [facility] [address] [place], [place] [id number] Gay Rosario MD [address] [facility] [address] [place], [place] [id number] Diabetic polyneuropathy associated with type 2 diabetes mellitus ([facility]/HCC) Social History Tobacco Use Types [...] often do you attend chur ch or restorationism services? Patient declined 07/21/2022 Do you belong to any clubs o r organizations such as yarsanism groups, unions, fraternal or athletic groups, or [...] Date Recorded Depression Risk (PHQ2) Score [facility] - Occupational Stress Questionnaire [...] place to sleep or slept in a long-term (including now)? No 07/21/2022 Sex and Gender Information Value Date Recorded Sex Assigned at Not on file Legal Sex Male 1:57 AM MST Gender Identity Not on file Sexual Orientation Not on file documented as of this encounter Miscellaneous Notes * Telephone Encounter - Tana Ndiaye CPHT - 07/18/2024 5:56 AM MST RFA TEAM No staff refills--now living in [place]--see Metformin request--see Apr 2024 refill request documented [...] documented as of this encounter Care Teams Exhauster Relationship Specialty Start Date End Date Renee Mora DO [address] [place] [address] PCP - General Family Medicine 06/04/24 Shanae Zarate MD [address] [place] [address] Consulting Physician Cardiology 10/13/20 documented as of this encounter
--- OUTSIDE RECORDS SUMMARY | 2025-06-19 23:24 | XMS_ITS | Encounter Summary ---
Author Organization [facility] Address [address] [place] [address] Care Team Providers Care Brownell Operator Name Role Phone Ubaldo Spring MD Primary Care Provider [phone] Romero Licea MD Primary Care Provi cl[place] Shana Mike NP Unavailable [phone] Julius Canseco MD Unavailable Encounter Details Date Type Department Care Team (Late st Contact Info) Description 09/24/2017 Procedure Pass [facility] Endoscopy [address] [place] [address] Social History Tobacco Use Types [...] on filedocumented in this encounter Care Teams Brownell Operator Relationship Specialty Start Date End Date Ubaldo Spring MD PCP - General Family Medicine 09/20/17 08/02/21 Romero Licea MD [address] [place] [address] PCP - General Family Medicine 08/03/21 Shana Mike NP [address] [place], [place] [id number] Nurse Practitioner Physical Medicine and Rehabilitation 11/15/22 Julius Canseco MD [address] [place], [place] [address] Consulting Physician Physical Medicine and Rehabilitation 04/11/23 documented as of this encounter
--- OUTSIDE RECORDS SUMMARY | 2025-06-19 23:24 | XMS_ITS | Encounter Summary ---
Author Organization [facility] Address [address] [place] [address] Care Team Providers Care Valve Lapper Name Role Phone Romero Licea MD Primary Care Provi clifton Shana Mike HOST/HOSTESS RESTAURANT Unavailable [phone] Julius Canseco MD Unavailable Encounter Details Date Type Department Care Team (Late st Contact Info) Description 08/03/2021 Procedure Pass [facility] Endoscopy [address] [place] [address] Social History Tobacco Use Types [...] on filedocumented in this encounter Care Teams Valve Lapper Relationship Specialty Start Date End Date Romero Licea MD [address] [place] [address] PCP - General Family Medicine 08/03/21 Shana Mike NP [address] [place] [address] Nurse Practitioner Physical Medicine and Rehabilitation 11/15/22 Julius Canseco MD [address] [place], [place] [address] Consulting Physician Physical Medicine and Rehabilitation 04/11/23 documented as of this encounter
--- OUTSIDE RECORDS SUMMARY | 2025-06-19 23:24 | XMS_ITS | Encounter Summary ---
Author Organization [facility] Address [address] [place] [address] Care Team Providers Care Middleware Engineer Name Role Phone Romero Licea MD Primary Care Provi clifton Shana Mike MEDIA ANALYTICS MANAGER Unavailable Julius Canseco MD Unavailable Encounter Details Date Type Department Care Team (Late st Contact Info) Description 02/04/2022 Procedure Pass [facility] Surgery [address] [place] [address] Social History Tobacco Use Types [...] on filedocumented in this encounter Care Teams Middleware Engineer Relationship Specialty Start Date End Date Romero Licea MD [address] [place] [address] PCP - General Family Medicine 08/03/21 Shana Mike NP [address] [place], [place] [id number] Nurse Practitioner Physical Medicine and Rehabilitation 11/15/22 Julius Canseco MD [address] [place] [address] Consulting Physician Physical Medicine and Rehabilitation 04/11/23 documented as of this encounter
--- OUTSIDE RECORDS SUMMARY | 2025-06-19 23:24 | XMS_ITS | Clinical Summary ---
Author Organization [facility] Address [address] [place] [address] Care Team Providers Care Drill Press Operator Helper Name Role Phone Shanae Zarate MD Unavailable Renee Mora DO Primary Care Provider [phone] Allergies Active Allergy Reactions Criticality Noted Date [...] - submitted cover my meds 06/16/22 ([facility]: [id number]) - approved 06/02/22-06/16/23 Request #[id number] md Problem Noted Date Diagnosed Date Type 2 diabetes mellitus wit h diabetic peripheral angiopathy without gangrene, with long-term current use of insulin 07/01/2023 Type 2 diabetes mellitus with other specified co mplication 07/01/2023 Overview (07/01/2023): With mixed hyperlipidemia Assessment & Plan (07/01/2023 1:51 PM [facility]): Diabetes is controlled. A1c up because he was off trulicity for a while but been back on it. Stable. Continue present management. Age-related osteoporosis wit hout current pathological fracture 07/26/2022 Overview (07/26/2022): DXA 07/01 right hip -3.6, left hip -3.5 Assessment & Plan (07/26/2022 10:48 AM [facility]): Recent pelvic fracture. Counseling about [...] LOVETT Assessment & Plan (07/26/2022 10:55 AM [facility]): Patient requested refill of his [...] is for him to consult with a aegis operations specialist or even update his spine imaging. I will defer this to his pain management team. Bilateral carpal tunnel syndrome 07/26/2022 Overview (07/26/2022): EMG/NCV 07/01 Assessment & Plan (07/26/2022 10:56 AM [facility]): I will request his records [...] findings. Assessment & Plan (10/13/2020 11:44 AM [facility]): Condition is newly identified. Detailed [...] agreement to get in touch with our [facility] team to help him get started on care, assist him to transition to intermediate designer community and for healthy behaviors to manage [...] (03/11/2021 1:37 PM MST): Follow-up with his patrol driver. Abdominal aortic atherosclerosis 06/29/2019 Overview (06/29/2019): [...] to stent. Advised to follow-up with his supervisor hardboard. Benign essential HTN 06/29/2019 Assessment & Plan [...] comorbidities Paroxysmal atrial fibrillation 06/29/2019 Overview (07/01/2023): [id number] Score 3 Assessment & Plan (07/01/2023 1:50 [...] (10/13/2020): Added automatically from request for surgery [id number] Resolved Problems Problem Noted Date Diagnosed Date [...] 07/21/2022 How often do you attend [facility] or bahai services? Patient declined 07/21/2022 [...] Date Recorded Depression Risk (PHQ2) Score 0 [facility] - Occupational Stress Questionnaire Answer Date [...] Body Mass Index 27.67 07/21/2022 1:37 PM [facility] Plan of Treatment Health Maintenance [...] X 1, STOOL Routine 10/15/2020 12:00 AM [facility] Screening for colorectal cancer HEPATITIS C VIRUS (HCV) ANTIBODY WITH REFLEX TO QUALITATIVE ISABEL Routine 07/26/2018 from Last 3 Months or Most Recently Relevant to Health Maintenance Results * Colonoscopy (08/03/2021) [facility] Colonoscopy colon polyps Historical Provider HEALTH MAINTENANCE Final Result * Occult blood x 1, stool (10/15/2020 12:00 AM [facility]) [facility] Occult Bld Immunochem Negative Negative Key Ring Comment: Assay sensitivity is >95% when 50 ug Hb/g of stool is present. Clinical sensitivity for colorectal cancer is 87%, and for large adenomas is 47%, based on an evaluation of 240 individuals in a premarket commercial data set used for FDA approval. Overall, clinical specificity is 97.7%. Stool (Per Rectum) 10/15/2020 10/22/2020 7:18 PM [facility] Narrative [facility] - 10/15/2020 12:00 AM [facility] Time/Date of collection taken from specimen. Copy being sent to: Results Only Account [employer] Romero Lovett MD LAB BODY FLUIDS AND STOOLS OR DERABLES Edited Result - Final [facility] [address] [place] [address] * Hepatitis C Virus (HCV) Antibody With Reflex to Qualitative ISABEL (07/26/2018) [facility] HCV Ab 0.08 <=0.79 Index [facility] Hepatitis C Ab Nonreactive Nonreactive F [facility] Comment: Performance characteristics [...] MD LAB BLOOD ORDERABLES Final Re sult [facility] Anywhere [address] from Last 3 Months or Most Recently Relevant to Health Maintenance Care Teams Drill Press Operator Helper Relationship Specialty Start Date End Date Renee Mora DO [address] [place] [address] PCP - General Family Medicine 06/04/24 Shanae Zarate MD [address] [place] [address] Consulting Physician Cardiology 10/13/20
== END 2025-06-19 15:22 | disposition home or self-care (01) ==
LOC: HO.HPSW 14:52
PROVIDERS: PCP Physician Assistant; Visit Provider Nurse Practitioner Family
DX: J44.9 Chronic obstructive pulmonary disease, unspecified (principal); R91.8 Other nonspecific abnormal finding of lung field
CPT/HCPCS: 99214; G2211

== ENCOUNTER → 2025-06-19 14:51 | Outpatient (BNVA) | payer MEDICARE, SELFPAY | PROVIDERS: PCP Physician Assistant; Visit Provider Nurse Practitioner Family | DX: J44.9 Chronic obstructive pulmonary disease, unspecified (principal); R91.8 Other nonspecific abnormal finding of lung field; Z77.22 Contact with and (suspected) exposure to environmental tobacco smoke (acute) (chronic) | CPT/HCPCS: 99212 ==

== ENCOUNTER 2025-06-20 14:20 | Outpatient (REF) | payer MEDICARE, SELFPAY ==
--- NOTE | ~2025-06-20 | US_ITS ---
CLINICAL HISTORY: R31.9 - Hematuria, unspecified US Renal Comparison: None provided Findings: Exam is slightly limited by patient body habitus. Right kidney normal size and echotexture, 11.0 cm length. Left kidney normal size and echotexture, 10.9 cm length. There are bilateral thin-walled Bosniak 1 cysts largest on the right measuring 3.5 x 3.3 x 3.2 cm. No hydronephrosis of either kidney. Normal color Doppler IMPRESSION: 1. No acute findings. This document has been electronically signed by: Dre Park MD on 06/21/2025 11:19:29
--- OUTSIDE RECORDS SUMMARY | 2025-06-20 22:00 | XMS_ITS | Encounter Summary ---
Author Organization [facility] Address [address] [place] [address] Care Team Providers Care Building Maintenance Mechanic Name Role Phone Ubaldo Spring MD Primary Care Provider + [phone] Romero Licea MD Primary Care Provi clifton Shana Mike NP Unavailable [phone] Julius Canseco MD Unavailable Encounter Details Date Type Department Care Team (Late st Contact Info) Description 09/24/2017 Procedure Pass [facility] Endoscopy [address] [place] [address] Social History Tobacco Use [...] filedocumented in this encounter Care Teams Building Maintenance Mechanic Relationship Specialty Start Date End Date Ubaldo Spring MD PCP - General Family Medicine 09/20/17 08/02/21 Romero Licea MD [address] [place] [address] PCP - General Family Medicine 08/03/21 Shana Mike NP [address] [place], [place] [id number] Nurse Practitioner Physical Medicine and Rehabilitation 11/15/22 Julius Canseco MD [address] [place], [place] [id number] Consulting Physician Physical Medicine and Rehabilitation 04/11/23 documented as of this encounter
--- OUTSIDE RECORDS SUMMARY | 2025-06-20 22:00 | XMS_ITS | Encounter Summary ---
Author Organization [facility] Address [address] [place] [address] Care Team Providers Care Screwhead Polisher Name Role Phone Shanae Zarate MD Unavailable Renee Mora DO Primary Care Provider [phone] Reason for Visit * Reason Comments Med Refill Encounter Details Date Type Department Care Team (Late st Contact Info) Description 06/23/2024 Refill [facility] [address] [place] [address] [place] [address] [place] [address] [address] [place] [address] Diabetic polyneuropathy associated with type 2 diabetes mellitus ([facility]CC) Social History Tobacco Use Types Packs/Day Years [...] How often do you attend chur or evangelical services? Patient declined 07/21/2022 Do [...] Recorded Depression Risk (PHQ2) Score 0 [facility] - Occupational Stress Questionnaire Answer [...] documented as of this encounter Care Teams Screwhead Polisher Relationship Specialty Start Date End Date Renee Mora DO [address] [place], [place] [id number] PCP - General Family Medicine 06/04/24 Shanae Zarate MD [address] [place] [address] Consulting Physician Cardiology 10/13/20 documented as of this encounter
--- OUTSIDE RECORDS SUMMARY | 2025-06-20 22:00 | XMS_ITS | Encounter Summary ---
Author Organization [facility] Address [address] [place] [address] Care Team Providers Care Powder Truck Driver Name Role Phone Ubaldo Spring MD Primary Care Provider + [phone] Romero Licea MD Primary Care Provi clifton Shana Mike NP Unavailable [phone] Julius Canseco MD Unavailable [phone] Encounter Details Date Type Department Care Team (Late st Contact Info) Description 09/23/2017 Procedure Pass [facility] Endoscopy [address] [place] [address] Social History Tobacco Use Types [...] filedocumented in this encounter Care Teams Powder Truck Driver Relationship Specialty Start Date End Date Ubaldo Spring MD PCP - General Family Medicine 09/20/17 08/02/21 Romero Licea MD [address] [place] [address] PCP - General Family Medicine 08/03/21 Shana Mike NP [address] [place], [place] [id number] Nurse Practitioner Physical Medicine and Rehabilitation 11/15/22 Julius Canseco MD [address] [place], [place] [phone] Consulting Physician Physical Medicine and Rehabilitation 04/11/23 documented as of this encounter
--- OUTSIDE RECORDS SUMMARY | 2025-06-20 22:00 | XMS_ITS | Clinical Summary ---
Author Organization [facility] Address [address] [place] [address] Care Team Providers Care Avionics Electronics Technician Name Role Phone Shanae Zarate MD Unavailable Renee Mora DO Primary Care Provider [phone] Allergies Active Allergy Reactions Criticality Noted Date [...] - submitted cover my meds 06/16/22 ([facility]oussaint: [id number]) - approved 06/02/22-06/16/23 Request #[id number] oh Problem Noted Date Diagnosed Date Type 2 diabetes mellitus wit h diabetic peripheral angiopathy without gangrene, with long-term current use of insulin 07/01/2023 Type 2 diabetes mellitus with other specified co mplication 07/01/2023 Overview (07/01/2023): With mixed hyperlipidemia Assessment & Plan (07/01/2023 1:51 PM [facility]): Diabetes is controlled. A1c up because he was off trulicity for a while but been back on it. Stable. Continue present management. Age-related osteoporosis wit hout current pathological fracture 07/26/2022 Overview (07/26/2022): DXA 07/01 right hip -3.6, left hip -3.5 Assessment & Plan (07/26/2022 10:48 AM [facility]): Recent pelvic fracture. Counseling [...] LOVETT Assessment & Plan (07/26/2022 10:55 AM [facility]): Patient requested refill of [...] is for him to consult with a management development specialist or even update his spine imaging. I will defer this to his pain management team. Bilateral carpal tunnel syndrome 07/26/2022 Overview (07/26/2022): EMG/NCV 07/01 Assessment & Plan (07/26/2022 10:56 AM [facility]): I will request his [...] findings. Assessment & Plan (10/13/2020 11:44 AM [facility]): Condition is newly identified. [...] agreement to get in touch with our [facility] team to help him get started on care, assist him to transition to terminal clerk community and for healthy behaviors to manage [...] (03/11/2021 1:37 PM MST): Follow-up with his fabricating machine operator. Abdominal aortic atherosclerosis 06/29/2019 Overview [...] to stent. Advised to follow-up with his lumpia wrapper maker. Benign essential HTN 06/29/2019 Assessment & [...] comorbidities Paroxysmal atrial fibrillation 06/29/2019 Overview (07/01/2023): [id number] Score 3 Assessment & Plan (07/01/2023 1:50 [...] (10/13/2020): Added automatically from request for surgery [id number] Resolved Problems Problem Noted Date Diagnosed Date [...] Never 07/21/2022 How often do you attend [facility] or temple services? Patient declined 07/21/2022 Do you belong to any clubs o r organizations such as restorationism groups, unions, fraternal or athletic groups, or [...] Date Recorded Depression Risk (PHQ2) Score 0 [facility] - Occupational [...] Body Mass Index 27.67 07/21/2022 1:37 PM [facility] Plan of Treatment Health [...] X 1, STOOL Routine 10/15/2020 12:00 AM [facility] Screening for colorectal cancer HEPATITIS C VIRUS (HCV) ANTIBODY WITH REFLEX TO QUALITATIVE ISABEL Routine 07/26/2018 from Last 3 Months or Most Recently Relevant to Health Maintenance Results * Colonoscopy (08/03/2021) [facility] Colonoscopy colon polyps Historical Provider HEALTH MAINTENANCE Final Result * Occult blood x 1, stool (10/15/2020 12:00 AM [facility]) [facility] Occult Bld Immunochem Negative Negative [employer] Comment: Assay sensitivity is >95% when 50 ug Hb/g of stool is present. Clinical sensitivity for colorectal cancer is 87%, and for large adenomas is 47%, based on an evaluation of 240 individuals in a premarket commercial data set used for FDA approval. Overall, clinical specificity is 97.7%. Stool (Per Rectum) 10/15/2020 10/22/2020 7:18 PM [facility] Narrative [facility] - 10/15/2020 12:00 AM [facility] Time/Date of collection taken from specimen. Copy being sent to: Results Only Account [employer] Romero Lovett MD LAB BODY FLUIDS AND STOOLS OR DERABLES Edited Result - Final [facility] [address] [place] [address] * Hepatitis C Virus (HCV) Antibody With Reflex to Qualitative ISABEL (07/26/2018) [facility] HCV Ab 0.08 <=0.79 Index [facility] Hepatitis C Ab Nonreactive Nonreactive [facility] Comment: Performance characteristics of [...] Final Re sult [facility] Anywhere [address] from Last 3 Months or Most Recently Relevant to Health Maintenance Care Teams Avionics Electronics Technician Relationship Specialty Start Date End Date Renee Mora DO [address] [place] [address] PCP - General Family Medicine 06/04/24 Shanae Zarate MD [address] [place] [address] Consulting Physician Cardiology 10/13/20
--- OUTSIDE RECORDS SUMMARY | 2025-06-20 22:00 | XMS_ITS | Encounter Summary ---
Author Organization [facility] Address [address] [place] [address] Care Team Providers Care Aquatics Lifeguard Name Role Phone Shanae Zarate MD Unavailable Renee Mora DO Primary Care Provider [phone] Reason for Visit * Reason Comments Med Refill Encounter Details Date Type Department Care Team (Late st Contact Info) Description 07/15/2024 Refill [facility] [address] [facility] [address] [place], [place] [phone] Gay Rosario MD [address] [facility] [place] [address] [place], [place] [phone] Diabetic polyneuropathy associated with type 2 diabetes mellitus ([facility]/HCC) Social History Tobacco Use Types Packs/Day Years [...] often do you attend chur ch or confucianism services? Patient declined 07/21/2022 Do you belong to any clubs o r organizations such as zoroastrianism groups, unions, fraternal or athletic groups, or [...] (PHQ2) Score 0 [facility] - Occupational Stress Questionnaire Answer [...] RFA TEAM No staff refills--now living in [place]--see Metformin request--see Apr 2024 refill request documented [...] documented as of this encounter Care Teams Aquatics Lifeguard Relationship Specialty Start Date End Date Renee Mora DO [address] [place] [address] PCP - General Family Medicine 06/04/24 Shanae Zarate MD [address] [place] [address] Consulting Physician Cardiology 10/13/20 documented as of this encounter
--- OUTSIDE RECORDS SUMMARY | 2025-06-20 22:01 | XMS_ITS | Encounter Summary ---
Author Organization [facility] Address [address] [place] [address] Care Team Providers Care Educational Technician Name Role Phone Romero Licea MD Primary Care Provi clifton Shana Mike GOGGLES ASSEMBLER Unavailable [phone] Julius Canseco MD Unavailable [phone] Encounter Details Date Type Department Care Team (Late st Contact Info) Description 01/21/2022 Procedure Pass [facility] Surgery [address] [place] [address] Social History Tobacco Use Types [...] on filedocumented in this encounter Care Teams Educational Technician Relationship Specialty Start Date End Date Romero Licea MD [address] [place] [address] PCP - General Family Medicine 08/03/21 Shana Mike NP [address] [place], [place] [phone] Nurse Practitioner Physical Medicine and Rehabilitation 11/15/22 Julius Canseco MD [address] [place] [address] Consulting Physician Physical Medicine and Rehabilitation 04/11/23 documented as of this encounter
--- OUTSIDE RECORDS SUMMARY | 2025-06-20 22:01 | XMS_ITS | Encounter Summary ---
Author Organization [facility] Address [address] [place] [address] Care Team Providers Care Hot Tamale Worker Name Role Phone Romero Licea MD Primary Care Provi clifton Shana Mike GAS STOVE SERVICER HELPER Unavailable [phone] Julius Canseco MD Unavailable Encounter Details Date Type Department Care Team (Late st Contact Info) Description 08/03/[address] [facility] Endoscopy [address] [place] [place] [address] Social History Tobacco Use Types [...] filedocumented in this encounter Care Teams Hot Tamale Worker Relationship Specialty Start Date End Date Romero Licea MD [address] [place] [address] PCP - General Family Medicine 08/03/21 Shana Mike NP [address] [place] [address] Nurse Practitioner Physical Medicine and Rehabilitation 11/15/22 Julius Canseco MD [address] [place], [place] [address] Consulting Physician Physical Medicine and Rehabilitation 04/11/23 documented as of this encounter
--- OUTSIDE RECORDS SUMMARY | 2025-06-20 22:01 | XMS_ITS | Encounter Summary ---
Author Organization [facility] Address [address] [place] [address] Care Team Providers Care Events Director Name Role Phone Romero Licea MD Primary Care Provi clifton Shana Mike BUSINESS PROPOSAL REP Unavailable [phone] Julius Canseco MD Unavailable Encounter Details Date Type Department Care Team (Late st Contact Info) Description 04/25/2023 Procedure Pass [facility] Surgery [address] [place] [place] [address] Social History Tobacco Use Types [...] on filedocumented in this encounter Care Teams Events Director Relationship Specialty Start Date End Date Romero Licea MD [address] [place], [place] [phone] PCP - General Family Medicine 08/03/21 Shana Mkie NP [address] [place], [place] [phone] Nurse Practitioner Physical Medicine and Rehabilitation 11/15/22 Julius Canseco MD [address] [place] [address] Consulting Physician Physical Medicine and Rehabilitation 04/11/23 documented as of this encounter
--- OUTSIDE RECORDS SUMMARY | 2025-06-20 22:01 | XMS_ITS | Clinical Summary ---
Author Organization [facility] Address [address] [place] [address] Care Team Providers Care Health Services Coordinator Name Role Phone Romero Licea MD Primary Care Provi clifton Shana Mike NP Unavailable [phone] Julius Canseco MD Unavailable Allergies No known [...] (10/06/2021): Added automatically from request for surgery [id number] Lumbar radiculopathy 10/05/2021 Overview (10/05/2021): Added automatically from request for surgery [id number] Fever 09/23/2017 Asthma 09/21/2017 HIV (human immunodeficiency virus infection) COPD (chronic obstructive pulmonary disease) Hypertension 09/21/2017 Polycythemia 09/21/2017 Hyponatremia 09/21/2017 Dehydration 09/20/[address] scan, stomach 09/20/2017 Overview (09/23/2017): Added automatically from request for surgery [id number] Social History Tobacco Use Types Packs/Day Years Used Date Smoking Tobacco: Former Cigarettes 2 10 Smokeless Tobacco: Never Tobacco Cessation:Counseling Given: Not Answered Alcohol Use Standard Drinks/Week Comments No 0 (1 standard drink = 0.6 oz pur e alcohol) Sex and Gender Information Value Date Recorded Sex Assigned at Not on file Legal Sex Male 10:38 AM [facility] Gender Identity Not on file Sexual Orientation Not on file Last Filed Vital Signs Vital Sign Reading Time Taken Comments Blood Pressure 128/72 04/11/2023 5:00 PM [facility] Pulse 66 04/11/2023 5:00 PM [facility] Temperature 36.6 C (97.8 F) 04/11/2023 2:43 PM [facility] Respiratory Rate 16 04/11/2023 5:00 PM [facility] Oxygen Saturation 99% 04/11/2023 5:00 PM [facility] Inhaled Oxygen Concentration - [...] abdomen pelvis with contrast (09/21/2017 8:44 PM [facility]) Anatomical Region Laterality Modality Abdomen, Chest, Pelvis, Hip Comp uted Tomography 09/21/2017 8:42 PM [facility] Narrative 09/21/2017 8:[address] [facility] [address] THORAX, ABDOMEN AND [...] * (ABNORMAL) Hemoglobin A1c (09/21/2017 4:47 AM [facility]) Hemoglobin A1C 8.5(H) <=5.7 % 09/21/2017 9:55 AM [facility] EAG 197.3 mg/dL 09/21/2017 9:55 AM [facility] Blood BLOOD SPECIMEN / Unknown Venipuncture / Unknown 09/21/2017 4:47 AM [facility] 09/21/2017 4:57 AM MST Narrative [facility] - 09/21/2017 9:55 AM [facility] The [place] Diabetes Association (ADA) guidelines for interpreting Hemoglobin A1C are as follows: Non-Diabetic patient: <5.7% Increased risk for future Diabetes: 5.7-6.4% ADA diagnostic criteria for Diabetes: >6.4% Values for patients with Diabetes: Result <7.0%: Meets ADA's recommendation goal for therapy. Result 7.0-8.0%: Exceeds ADA's recommended goal. Result >8.0%: ADA recommends reevaluation of therapy. us Dre Perez MD LAB BLOOD ORDERABLES Bess chavez Result [facility] [id number] [id number], [facility] [phone] from Last 3 Months or Most Recently Relevant to Health Maintenance Insurance [facility] ADVANTAGE [facility] ADVANTAGE CIG[employer] MEDICARE ADVANTAGE CIGNA MEDICARE ADVANTAGE Advance Directives For more information, please contact: [phone] * Full Code (Latest Code Status on File) Date Activated Date Inactivated Comments 09/20/2017 8:25 PM 09/26/2017 4:14 PM Care Teams Health Services Coordinator Relationship Specialty Start Date End Date Romero Licea MD [address] [place] [address] PCP - General Family Medicine 08/03/21 Shana Mike NP [address] [place] [address] Nurse Practitioner Physical Medicine and Rehabilitation 11/15/22 Julius Canseco MD [address] [place] [address] Consulting Physician Physical Medicine and Rehabilitation 04/11/23
--- OUTSIDE RECORDS SUMMARY | 2025-06-20 22:01 | XMS_ITS | Encounter Summary ---
Author Organization [facility] Address [address] [place] [address] Care Team Providers Care Reforestation Worker Name Role Phone Romero Licea MD Primary Care Provi clifton Shana Mike CASE MANAGER Unavailable [phone] Julius Canseco MD Unavailable [phone] Encounter Details Date Type Department Care Team (Late st Contact Info) Description 04/11/2023 Procedure Pass [facility] Surgery [address] [place] [address] Social History Tobacco Use Types [...] on filedocumented in this encounter Care Teams Reforestation Worker Relationship Specialty Start Date End Date Romero Licea MD [address] [place], [place] [phone] PCP - General Family Medicine 08/03/21 Shana Mike NP [address] [place], [place] [phone] Nurse Practitioner Physical Medicine and Rehabilitation 11/15/22 Julius Canseco MD [address] [place] [address] Consulting Physician Physical Medicine and Rehabilitation 04/11/23 documented as of this encounter
--- OUTSIDE RECORDS SUMMARY | 2025-06-20 22:01 | XMS_ITS | Encounter Summary ---
Author Organization [facility] Address [address] [place] [address] Care Team Providers Care First Line Supervisor Name Role Phone Romero Licea MD Primary Care Provi clifton Shana Mike ART TEACHER Unavailable [phone] Julius Canseco MD Unavailable Encounter Details Date Type Department Care Team (Late st Contact Info) Description 10/22/2021 Procedure Pass [facility] Surgery [address] [place] [address] Social History Tobacco Use Types [...] on filedocumented in this encounter Care Teams First Line Supervisor Relationship Specialty Start Date End Date Romero Licea MD [address] [place] [address] PCP - General Family Medicine 08/03/21 Shana Mike NP [address] [place] [address] Nurse Practitioner Physical Medicine and Rehabilitation 11/15/22 Julius Canseco MD [address] [place], [place] [id number] Consulting Physician Physical Medicine and Rehabilitation 04/11/23 documented as of this encounter
--- OUTSIDE RECORDS SUMMARY | 2025-06-20 22:01 | XMS_ITS | Encounter Summary ---
Author Organization [facility] Address [address] [place] [address] Care Team Providers Care Supervisor Sound Technician Name Role Phone Romero Licea MD Primary Care Provider Shanae Zarate MD Unavailable Princess Monroy MACHINE PRECISION ETCHER Unavailable [phone] Luh NashD Unavailable Cathy Tee RN Unavailable Romero Licea MD Unavailable Renee Mora DO Unavailable Renee Mora DO Primary Care Provider Reason for Visit * Reason Comments Med Refill Encounter Details Date Type Department Care Team (Late st Contact Info) Description 05/25/2019 Refill [facility] [address] [place], [place] [address] Nirmal Huizar MD [address] [place] [address] Social History Tobacco Use Types Packs/Day Years Used Date Smoking Tobacco: Never Assessed Sex and Gender Information Value Date Recorded Sex Assigned at Not on file Legal Sex [facility] 1:[facility] Gender Identity Not on file Sexual Orientation Not on file documented as of this encounter Plan of Treatment Not on file documented as of this encounter Visit Diagnoses Not on filedocumented in this encounter Care Teams Supervisor Sound Technician Relationship Specialty Start Date End Date Romero Licea MD PCP - General Family Medicine 06/27/19 05/27/24 Romero Licea MD [address] [place] [address] PCP - Medicare Advantage - Attributed PCP 10/09/22 07/10/23 Renee Mora DO [address] [place] [address] PCP - Medicare Advantage - Attributed PCP 07/11/23 06/09/24 Renee Mora DO [address] [place] [address] PCP - General Family Medicine 06/04/24 Shanae Zarate MD [address] [facility] [place] [place] [address] Consulting Physician Cardiology 10/13/20 Princess Monroy LCSW [address] [place] [address] Home Teaching Grades 9 Thru 12 Teacher Driver Guide 10/31/20 05/27/24 Luh Nash, HunterD [address] [place] [address] Clinical Pharmacist Pharmacy 11/24/20 03/04/22 Cathy Tee, KAMERON [address] [place] [address] [place] [address] Maintainer [employer] ( Nurse) Care Management 08/17/21 documented as of this encounter
--- OUTSIDE RECORDS SUMMARY | 2025-06-20 22:01 | XMS_ITS | Encounter Summary ---
Author Organization [facility] Address [address] [place] [address] Care Team Providers Care Firearms Instructor Name Role Phone Romero Licea MD Primary Care Provi clifton Shana Mike DIRECTOR ENTERPRISE DATA ARCHITECTURE Unavailable [phone] Julius Canseco MD Unavailable Encounter Details Date Type Department Care Team (Late st Contact Info) Description 10/08/2021 Procedure Pass [facility] Surgery [address] [place] [place] [address] Social History Tobacco Use Types [...] on filedocumented in this encounter Care Teams Firearms Instructor Relationship Specialty Start Date End Date Romero Licea MD [address] [place] [address] PCP - General Family Medicine 08/03/21 Shana Mike NP [address] [place] [address] Nurse Practitioner Physical Medicine and Rehabilitation 11/15/22 Julius Canseco MD [address] [place], [place] [id number] Consulting Physician Physical Medicine and Rehabilitation 04/11/23 documented as of this encounter
--- OUTSIDE RECORDS SUMMARY | 2025-06-20 22:01 | XMS_ITS | Encounter Summary ---
Author Organization [facility] Address [address] [place] [address] Care Team Providers Care Measuring Clerk Name Role Phone Romero Licea MD Primary Care Provi clifton Shana Mike AERIAL HURRICANE HUNTER Unavailable Julius Canseco MD Unavailable Encounter Details Date Type Department Care Team (Late st Contact Info) Description 02/04/2022 Procedure Pass [facility] Surgery [address] [place] [address] Social History Tobacco Use Types [...] on filedocumented in this encounter Care Teams Measuring Clerk Relationship Specialty Start Date End Date Romero Licea MD [address] [place] [address] PCP - General Family Medicine 08/03/21 Shana Mike NP [address] [place], [place] [phone] Nurse Practitioner Physical Medicine and Rehabilitation 11/15/22 Julius Canseco MD [address] [place] [address] Consulting Physician Physical Medicine and Rehabilitation 04/11/23 documented as of this encounter
--- OUTSIDE RECORDS SUMMARY | 2025-06-20 22:01 | XMS_ITS | Encounter Summary ---
Author Organization [facility] Address [address] [place] [address] Care Team Providers Care Junior Project Manager Name Role Phone Romero Licea MD Primary Care Provider Shanae Zarate MD Unavailable Princess Monroy FLOOR SURFACER Unavailable [phone] Luh NashD Unavailable Cathy Tee RN Unavailable Romero Licea MD Unavailable Renee Mora DO Unavailable Renee Mora DO Primary Care Provider Reason for Visit * Reason Comments Med Refill Encounter Details Date Type Department Care Team (Late st Contact Info) Description 05/04/2019 Refill [facility] [address] [place], [place] [address] Nirmal Huizar MD [address] [place] [address] Social History Tobacco Use Types Packs/Day Years [...] on filedocumented in this encounter Care Teams Junior Project Manager Relationship Specialty Start Date End Date Romero Licea MD PCP - General Family Medicine 06/27/19 05/27/24 Romero Licea MD [address] [place] [address] PCP - Medicare Advantage - Attributed PCP 10/09/22 07/10/23 Renee Mora DO [address] [place] [address] PCP - Medicare Advantage - Attributed PCP 07/11/23 06/09/24 Renee Mora DO [address] [place] [address] PCP - General Family Medicine 06/04/24 Shanae Zarate MD [address] [place] [address] Consulting Physician Cardiology 10/13/20 Princess Monroy LCSW [address] [place] [address] Home Companion Professional Skateboarder 10/31/20 05/27/24 Luh Nash, HunterD [address] [place] [address] Clinical Pharmacist Pharmacy 11/24/20 03/04/22 Cathy Tee, KAMERON [address] [place] [address] [place] [address] Supervisor Brew House ( Nurse) Care Management 08/17/21 documented as of this encounter
--- OUTSIDE RECORDS SUMMARY | 2025-06-20 22:01 | XMS_ITS | Encounter Summary ---
Author Organization [facility] Address [address] [place] [address] Care Team Providers Care Guard Entrance Registrar Name Role Phone Romero Licea MD Primary Care Provider Shanae Zarate MD Unavailable Princess Monroy BLOWER OPERATOR Unavailable [phone] Luh NashD Unavailable Cathy Tee RN Unavailable Romero Licea MD Unavailable Renee Mora DO Unavailable Renee Mora DO Primary Care Provider Reason for Visit * Reason Comments Med Refill Encounter Details Date Type Department Care Team (Late st Contact Info) Description 06/27/2019 Refill [facility] [address] [place], [place] [address] Nirmal Huizar MD [address] [place] [address] Social History Tobacco Use Types Packs/Day Years [...] on filedocumented in this encounter Care Teams Guard Entrance Registrar Relationship Specialty Start Date End Date Romero Licea MD PCP - General Family Medicine 06/27/19 05/27/24 Romero Licea MD [address] [place] [address] PCP - Medicare Advantage - Attributed PCP 10/09/22 07/10/23 Renee Mora DO [address] [place] [address] PCP - Medicare Advantage - Attributed PCP 07/11/23 06/09/24 Renee Mora DO [address] [place] [address] PCP - General Family Medicine 06/04/24 Shanae Zarate MD [address] [place] [address] Consulting Physician Cardiology 10/13/20 Princess Monroy LCSW [address] [place] [address] Drill Press Set Up Operator Dsp Engineer 10/31/20 05/27/24 Luh Nash, HunterD [address] [place] [address] Clinical Pharmacist Pharmacy 11/24/20 03/04/22 Cathy Tee, KAMERON [address] [place] [address] [place] [address] Ballistics Expert ( Nurse) Care Management 08/17/21 documented as of this encounter
== END 2025-06-20 14:21 ==
LOC: HO.US 14:20
PROVIDERS: PCP Physician Assistant; Visit Provider Physician Assistant
DX: N28.1 Cyst of kidney, acquired (principal); R31.9 Hematuria, unspecified
CPT/HCPCS: 76775

== ENCOUNTER → 2025-06-20 14:24 | Outpatient (BNV) | payer MEDICARE, SELFPAY | PROVIDERS: PCP Physician Assistant; Visit Provider Specialist | DX: R31.9 Hematuria, unspecified (principal) | CPT/HCPCS: 76775 ==

== ENCOUNTER 2025-07-10 13:18 | Outpatient (AMB) | payer MEDICARE, SELFPAY ==
--- NOTE | 2025-07-10 14:01 | A.SPINEOV_ITS ---
Intake Visit Reasons: 1st post op Intake Note: Mr. Ayala is here today for his 1st post op. Repair Electric Motor Assembler Required: No Allergies Seasonal Allergies Allergy (Mild, Verified 06/19/25 14:56) sneezing Assessment & Plan Assessment & Plan (1) Lumbar pain with radiation down left leg: Code(s): M54.50 - Low back pain, unspecified; M79.605 - Pain in left leg Category: Medical Plan Mr Ayala is here in follow up 3 weeks out from his L4-5 decompression. His leg pain seems to be better, however not healing up quite as fast as he had hoped. He started to do some exercises to try to help get things going. That seems to be going okay. He wishes he could walk a little more. His strength is normal in his wound is healed up. We discussed activity guidelines, restrictions and expectations after lumbar decompression surgery. I reassured him that I think the nerve will continue to heal over time and since it is already feeling better that is a good sign that it will continue to do so. I told him not to get too aggressive with the exercises as he is still only 3 weeks out from surgery. I will see him back in 6 weeks for final postoperative visit. Kwesi Cummins MD, PhD [facility] Coding Level of Care Code Global (38231) Diagnoses Lumbar pain with radiation down left leg M54.50; M79.605
--- OUTSIDE RECORDS SUMMARY | 2025-07-10 14:46 | XMS_ITS | Encounter Summary ---
Author Organization [facility] Address [address] [place] [address] Care Team Providers Care Clinical Project Manager Name Role Phone Ubaldo Spring MD Primary Care Provider [phone] Romero Licea MD Primary Care Provi clifton Shana Mike NP Unavailable [phone] Julius Canseco MD Unavailable Encounter Details Date Type Department Care Team (Late st Contact Info) Description 09/23/2017 Procedure Pass [facility] Endoscopy [address] [place] [address] Social History Tobacco Use Types [...] on filedocumented in this encounter Care Teams Clinical Project Manager Relationship Specialty Start Date End Date Ubaldo Spring MD PCP - General Family Medicine 09/20/17 08/02/21 Romero Licea MD [address] [place] [address] PCP - General Family Medicine 08/03/21 Shana Mike NP [address] [place], [place] [id number] Nurse Practitioner Physical Medicine and Rehabilitation 11/15/22 Julius Canseco MD [address] [place], [place] [address] Consulting Physician Physical Medicine and Rehabilitation 04/11/23 documented as of this encounter
--- OUTSIDE RECORDS SUMMARY | 2025-07-10 14:46 | XMS_ITS | Encounter Summary ---
Author Organization [facility] Address [address] [place] [address] Care Team Providers Care Teller Supervisor Name Role Phone Shanae Zarate MD Unavailable Renee Mora DO Primary Care Provider [phone] Reason for Visit * Reason Comments Med Refill Encounter Details Date Type Department Care Team (Late st Contact Info) Description 07/15/2024 Refill [facility] [address] [facility] [address] [place], [place] [id number] Gay Rosario MD [address] [facility] [address] [place], [place] [id number] Diabetic polyneuropathy associated with type 2 diabetes mellitus ([facility]/HCC) Social History Tobacco Use Types [...] often do you attend chur ch or mosque services? Patient declined 07/21/2022 Do you belong [...] Depression Risk (PHQ2) Score 0 [facility] - Occupational Stress Questionnaire Answer [...] RFA TEAM No staff refills--now living in [place]--see Metformin request--see Apr 2024 refill request documented [...] documented as of this encounter Care Teams Teller Supervisor Relationship Specialty Start Date End Date Renee Mora DO [address] [place] [address] PCP - General Family Medicine 06/04/24 Shanae Zarate MD [address] [place] [address] Consulting Physician Cardiology 10/13/20 documented as of this encounter
--- OUTSIDE RECORDS SUMMARY | 2025-07-10 14:46 | XMS_ITS | Encounter Summary ---
Author Organization [facility] Address [address] [place] [address] Care Team Providers Care Forestry Biology Specialist Name Role Phone Romero Licea MD Primary Care Provider Shanae Zarate MD Unavailable Princess Monroy MECHANICAL TECH Unavailable [phone] Luh NashD Unavailable Cathy Tee RN Unavailable Romero Licea MD Unavailable Renee Mora DO Unavailable Renee Mora DO Primary Care Provider Reason for Visit * Reason Comments Med Refill Encounter Details Date Type Department Care Team (Late st Contact Info) Description 05/04/2019 Refill [facility] [address] [place], [place] [address] Nirmal Huizar MD [address] [place] [address] Social History Tobacco Use Types Packs/Day Years Used Date Smoking Tobacco: Never Assessed Sex and Gender Information Value Date Recorded Sex Assigned at Not on file Legal Sex Male 1:57 AM [facility] Gender Identity Not on file Sexual Orientation Not on file documented as of this encounter Plan of Treatment Not on file documented as of this encounter Visit Diagnoses Not on filedocumented in this encounter Care Teams Forestry Biology Specialist Relationship Specialty Start Date End Date Romero Licea MD PCP - General Family Medicine 06/27/19 05/27/24 Romero Licea MD [address] [place] [address] PCP - Medicare Advantage - Attributed PCP 10/09/22 07/10/23 Renee Mora DO [address] [place] [address] PCP - Medicare Advantage - Attributed PCP 07/11/23 06/09/24 Renee Mora DO [address] [place] [address] PCP - General Family Medicine 06/04/24 Shanae Zarate MD [address] [place] [address] Consulting Physician Cardiology 10/13/20 Princess Monroy LCSW [address] [place] [address] Skin Washer Home Care Music Therapist 10/31/20 05/27/24 Luh Nash, HunterD [address] [place] [address] Clinical Pharmacist Pharmacy 11/24/20 03/04/22 Cathy Tee, KAMERON [address] [place] [address] [place] [address] Citrus Fruit Colorer ( Nurse) Care Management 08/17/21 documented as of this encounter
--- OUTSIDE RECORDS SUMMARY | 2025-07-10 14:46 | XMS_ITS | Encounter Summary ---
Author Organization [facility] Address [address] [place] [address] Care Team Providers Care Golf Club Maker Name Role Phone Ubaldo Spring MD Primary Care Provider [phone] Romero Licea MD Primary Care Provi clifton Shana Mike NP Unavailable [phone] Julius Canseco MD Unavailable Encounter Details Date Type Department Care Team (Late st Contact Info) Description 09/24/2017 Procedure Pass [facility] Endoscopy [address] [place] [address] Social History Tobacco Use Types [...] on filedocumented in this encounter Care Teams Golf Club Maker Relationship Specialty Start Date End Date Ubaldo Spring MD PCP - General Family Medicine 09/20/17 08/02/21 Romero Licea MD [address] [place] [address] PCP - General Family Medicine 08/03/21 Shana Mike NP [address] [place], [place] [id number] Nurse Practitioner Physical Medicine and Rehabilitation 11/15/22 Julius Canseco MD [address] [place], [place] [address] Consulting Physician Physical Medicine and Rehabilitation 04/11/23 documented as of this encounter
--- OUTSIDE RECORDS SUMMARY | 2025-07-10 14:46 | XMS_ITS | Clinical Summary ---
Author Organization [facility] Address [address] [place] [address] Care Team Providers Care Metal Roofer Name Role Phone Shanae Zarate MD Unavailable Renee Mora DO Primary Care Provider [phone] Allergies Active Allergy Reactions Criticality Noted Date [...] - submitted cover my meds 06/16/22 (Toussaint: [id number]) - approved 06/02/22-06/16/23 Request #[id number] hi Problem Noted Date Diagnosed Date Type 2 [...] is for him to consult with a air defense specialist or even update his spine imaging. 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 Abdominal aortic atherosclerosis 06/29/2019 Overview (06/29/2019): CT [...] to stent. Advised to follow-up with his yard loader operator. Benign essential HTN 06/29/2019 Assessment & [...] comorbidities Paroxysmal atrial fibrillation 06/29/2019 Overview (07/01/2023): [id number] Score 3 Assessment & Plan (07/01/2023 1:50 [...] (10/13/2020): Added automatically from request for surgery [id number] Resolved Problems Problem Noted Date Diagnosed Date [...] 07/21/2022 How often do you attend [facility] or baptism services? Patient declined 07/21/2022 Do you belong to any clubs o r organizations such as judaism groups, unions, fraternal or athletic groups, or [...] Date Recorded Depression Risk (PHQ2) Score 0 [facility] - Occupational Stress Questionnaire [...] place to sleep or slept in a long term (including now)? No 07/21/2022 Sex and Gender [...] to Health Maintenance Results * Colonoscopy (08/03/2021) [facility] Colonoscopy colon polyps Historical Provider HEALTH MAINTENANCE Final Result * Occult blood x 1, stool (10/15/2020 12:00 AM [facility]) [facility] Occult Bld Immunochem Negative Negative [employer] Comment: Assay sensitivity is >95% when 50 [...] STOOLS OR DERABLES Edited Result - Final [facility] [employer] [address] [place] [address] * Hepatitis C Virus (HCV) Antibody With Reflex to Qualitative ISABEL (07/26/2018) [facility] HCV Ab 0.08 <=0.79 Index [facility] Hepatitis C Ab Nonreactive Nonreactive [facility] Comment: Performance characteristics [...] MD LAB BLOOD ORDERABLES Final Re sult [facility] Anywhere [address] from Last 3 Months or Most Recently Relevant to Health Maintenance Care Teams Metal Roofer Relationship Specialty Start Date End Date Renee Mora DO [address] [place] [address] PCP - General Family Medicine 06/04/24 Shanae Zarate MD [address] [place] [address] Consulting Physician Cardiology 10/13/20
--- OUTSIDE RECORDS SUMMARY | 2025-07-10 14:46 | XMS_ITS | Clinical Summary ---
Author Organization [facility] Address [address] [place] [address] Care Team Providers Care Dining Room Captain Name Role Phone Romero Licea MD Primary Care Provi clifton Shana Mike NP Unavailable [phone] Julius Canseco MD Unavailable Allergies No known [...] (10/06/2021): Added automatically from request for surgery [id number] Lumbar radiculopathy 10/05/2021 Overview (10/05/2021): Added automatically from request for surgery [id number] Fever 09/23/2017 Asthma 09/21/2017 HIV (human immunodeficiency virus infection) COPD (chronic obstructive pulmonary disease) Hypertension 09/21/2017 Polycythemia 09/21/2017 Hyponatremia 09/21/2017 Dehydration 09/20/[address] scan, stomach 09/20/2017 Overview (09/23/2017): Added automatically from request for surgery [id number] Social History Tobacco Use Types Packs/Day Years [...] Comments Blood Pressure 128/72 04/11/2023 5:00 PM [facility] Pulse 66 04/11/2023 5:00 PM [facility] Temperature 36.6 C (97.8 F) 04/11/2023 2:43 PM [facility] Respiratory Rate 16 04/11/2023 5:00 PM [facility] Oxygen Saturation 99% 04/11/2023 5:00 PM [facility] Inhaled Oxygen Concentration - [...] years 1-dose series) 2007 COVID-19 Vaccine (#1) 12/08/2020 11/10/2020, 021 Abdominal Aortic Aneurysm (A AA) [...] abdomen pelvis with contrast (09/21/2017 8:44 PM [facility]) Anatomical Region Laterality Modality Abdomen, Chest, Pelvis, Hip Comp uted Tomography 09/21/2017 8:42 PM [facility] Narrative 09/21/2017 8:55 [address] [facility] CT THORAX, ABDOMEN AND [...] * (ABNORMAL) Hemoglobin A1c (09/21/2017 4:47 AM [facility]) Hemoglobin A1C 8.5(H) <=5.7 % 09/21/2017 9:55 AM [facility] EAG 197.3 mg/dL 09/21/2017 9:55 AM [facility] Blood BLOOD SPECIMEN / Unknown Venipuncture / Unknown 09/21/2017 4:47 AM [facility] 09/21/2017 4:57 AM MST Narrative [facility] - 09/21/2017 9:55 AM [facility] The [place] Diabetes Association (ADA) guidelines for interpreting Hemoglobin A1C are as follows: Non-Diabetic patient: <5.7% Increased risk for future Diabetes: 5.7-6.4% ADA diagnostic criteria for Diabetes: >6.4% Values for patients with Diabetes: Result <7.0%: Meets ADA's recommendation goal for therapy. Result 7.0-8.0%: Exceeds ADA's recommended goal. Result >8.0%: ADA recommends reevaluation of therapy. us Dre Perez MD LAB BLOOD ORDERABLES Bess chavez Result [facility] [id number] [id number], [facility] [phone] from Last 3 Months or Most Recently Relevant to Health Maintenance Insurance * Guarantor: Kvng Ayala Account Type Relation to Patient Date of Phone Billing Address Personal/Family Self 1955 [address] [id number] [facility] [employer] H[employer] H[employer] Advance Directives For more information, please contact: [phone] * Full Code (Latest Code Status on File) Date Activated Date Inactivated Comments 09/20/2017 8:25 PM 09/26/2017 4:14 PM Care Teams Dining Room Captain Relationship Specialty Start Date End Date Romero Licea MD [address] [place] [address] PCP - General Family Medicine 08/03/21 Shana Mike NP [address] [place] [address] Nurse Practitioner Physical Medicine and Rehabilitation 11/15/22 Julius Canseco MD [address] [place], [place] [address] Consulting Physician Physical Medicine and Rehabilitation 04/11/23
--- OUTSIDE RECORDS SUMMARY | 2025-07-10 14:46 | XMS_ITS | Encounter Summary ---
Author Organization [facility] Address [address] [place] [address] Care Team Providers Care Retort Cooler Name Role Phone Romero Licea MD Primary Care Provi clifton Shana Mike PRESSURIZATION MECHANIC Unavailable [phone] Julius Canseco MD Unavailable Encounter Details Date Type Department Care Team (Late st Contact Info) Description 10/22/2021 Procedure Pass [facility] Surgery [address] [place] [address] Social History Tobacco Use Types [...] on filedocumented in this encounter Care Teams Retort Cooler Relationship Specialty Start Date End Date Romero Licea MD [address] [place] [address] PCP - General Family Medicine 08/03/21 Shana Mike NP [address] [place] [address] Nurse Practitioner Physical Medicine and Rehabilitation 11/15/22 Julius Canseco MD [address] [place], [place] [address] Consulting Physician Physical Medicine and Rehabilitation 04/11/23 documented as of this encounter
--- OUTSIDE RECORDS SUMMARY | 2025-07-10 14:46 | XMS_ITS | Encounter Summary ---
Author Organization [facility] Address [address] [place] [address] Care Team Providers Care Local Government Legislator Name Role Phone Romero Licea MD Primary Care Provi clifton Shana Mike NEWSPAPER COLUMNIST Unavailable [phone] Julius Canseco MD Unavailable [phone] Encounter Details Date Type Department Care Team (Late st Contact Info) Description 08/03/2021 Procedure Pass [facility] Endoscopy [address] [place] [address] Social History Tobacco Use Types [...] on filedocumented in this encounter Care Teams Local Government Legislator Relationship Specialty Start Date End Date Romero Licea MD [address] [place] [address] PCP - General Family Medicine 08/03/21 Shana Mike NP [address] [place] [address] Nurse Practitioner Physical Medicine and Rehabilitation 11/15/22 Julius Canseco MD [address] [place], [place] [id number] Consulting Physician Physical Medicine and Rehabilitation 04/11/23 documented as of this encounter
--- OUTSIDE RECORDS SUMMARY | 2025-07-10 14:46 | XMS_ITS | Encounter Summary ---
Author Organization [facility] Address [address] [place] [address] Care Team Providers Care Hunter Guide Name Role Phone Romero Licea MD Primary Care Provi clifton Shana Mike AMMONIA REFRIGERATION TECHNICIAN Unavailable Julius Canseco MD Unavailable Encounter Details Date Type Department Care Team (Late st Contact Info) Description 02/04/2022 Procedure Pass [facility] Surgery [address] [place] [address] Social History Tobacco Use Types Packs/Day Years Used Date Smoking Tobacco: Former Cigarettes 2 10 Smokeless Tobacco: Never Alcohol Use Standard Drinks/Week Comments No 0 (1 standard drink = 0.6 oz pur e alcohol) Sex and Gender Information Value Date Recorded Sex Assigned at Not on file Legal Sex Male 10:38 AM [facility] Gender Identity Not [...] on filedocumented in this encounter Care Teams Hunter Guide Relationship Specialty Start Date End Date Romero Licea MD [address] [place] [address] PCP - General Family Medicine 08/03/21 Shana Mike NP [address] [place], [place] [id number] Nurse Practitioner Physical Medicine and Rehabilitation 11/15/22 Julius Canseco MD [address] [place] [address] Consulting Physician Physical Medicine and Rehabilitation 04/11/23 documented as of this encounter
--- OUTSIDE RECORDS SUMMARY | 2025-07-10 14:46 | XMS_ITS | Encounter Summary ---
Author Organization [facility] Address [address] [place] [address] Care Team Providers Care Forest Products Gatherer Name Role Phone Romero Licea MD Primary Care Provi clifton Shana Mike TUMBLER DYEING MACHINE OPERATOR Unavailable [phone] Julius Canseco MD Unavailable Encounter Details Date Type Department Care Team (Late st Contact Info) Description 01/21/2022 Procedure Pass [facility] Surgery [address] [place] [address] Social History Tobacco Use Types [...] on filedocumented in this encounter Care Teams Forest Products Gatherer Relationship Specialty Start Date End Date Romero Licea MD [address] [place] [address] PCP - General Family Medicine 08/03/21 Shana Mike NP [address] [place], [place] [id number] Nurse Practitioner Physical Medicine and Rehabilitation 11/15/22 Julius Canseco MD [address] [place] [address] Consulting Physician Physical Medicine and Rehabilitation 04/11/23 documented as of this encounter
--- OUTSIDE RECORDS SUMMARY | 2025-07-10 14:46 | XMS_ITS | Encounter Summary ---
Author Organization [facility] Address [address] [place] [address] Care Team Providers Care Software Engineer Backend Name Role Phone Romero Licea MD Primary Care Provi clifton Shana Mike GREEN BUILDING ARCHITECT Unavailable [phone] Julius Canseco MD Unavailable Encounter Details Date Type Department Care Team (Late st Contact Info) Description 04/25/2023 Procedure Pass [facility] Surgery [address] [place] [address] Social History Tobacco Use Types [...] on filedocumented in this encounter Care Teams Software Engineer Backend Relationship Specialty Start Date End Date Romero Licea MD [address] [place], [place] [phone] PCP - General Family Medicine 08/03/21 Shana Mike NP [address] [place], [place] [id number] Nurse Practitioner Physical Medicine and Rehabilitation 11/15/22 Julius Canseco MD [address] [place] [address] Consulting Physician Physical Medicine and Rehabilitation 04/11/23 documented as of this encounter
--- OUTSIDE RECORDS SUMMARY | 2025-07-10 14:46 | XMS_ITS | Encounter Summary ---
Author Organization [facility] Address [address] [place] [address] Care Team Providers Care Lamp Shade Maker Name Role Phone Shanae Zarate MD Unavailable Renee Mora DO Primary Care Provider [phone] Reason for Visit * Reason Comments Med Refill Encounter Details Date Type Department Care Team (Late st Contact Info) Description 06/23/2024 Refill [facility] [address] [place] [address] [place] [address] [place] [address] [address] [place] [address] Diabetic polyneuropathy associated with type 2 diabetes mellitus ([facility]/HCC) Social History Tobacco Use Types Packs/Day [...] How often do you attend chur or yarsanism services? Patient declined 07/21/2022 Do you belong to any clubs o r organizations such as quaker groups, unions, fraternal or athletic groups, or [...] Depression Risk (PHQ2) Score 0 [facility] - Occupational Stress Questionnaire Answer [...] documented as of this encounter Care Teams Lamp Shade Maker Relationship Specialty Start Date End Date Renee Mora DO [address] [place], [place] [id number] PCP - General Family Medicine 06/04/24 Shanae Zarate MD [address] [place] [address] [place] [address] Consulting Physician Cardiology 10/13/20 documented as of this encounter
--- OUTSIDE RECORDS SUMMARY | 2025-07-10 14:46 | XMS_ITS | Encounter Summary ---
Author Organization [facility] Address [address] [place] [address] Care Team Providers Care Marina Porter Name Role Phone Romero Licea MD Primary Care Provi clifton Shana Mike PUBLIC WORKS LABORER Unavailable [phone] Julius Canseco MD Unavailable Encounter Details Date Type Department Care Team (Late st Contact Info) Description 10/08/2021 Procedure Pass [facility] Surgery [address] [place] [address] Social History Tobacco Use Types [...] on filedocumented in this encounter Care Teams Marina Porter Relationship Specialty Start Date End Date Romero Licea MD [address] [place] [address] PCP - General Family Medicine 08/03/21 Shana Mike NP [address] [place] [address] Nurse Practitioner Physical Medicine and Rehabilitation 11/15/22 Julius Canseco MD [address] [place], [place] [phone] Consulting Physician Physical Medicine and Rehabilitation 04/11/23 documented as of this encounter
--- OUTSIDE RECORDS SUMMARY | 2025-07-10 14:46 | XMS_ITS | Encounter Summary ---
Author Organization [facility] Address [address] [place] [address] Care Team Providers Care Real Estate Administrative Assistant Name Role Phone Romero Licea MD Primary Care Provider Shanae Zarate MD Unavailable Princess Monroy LAB ENGINEER Unavailable [phone] Luh NashD Unavailable Cathy Tee RN Unavailable Romero Licea MD Unavailable Renee Mora DO Unavailable Renee Mora DO Primary Care Provider Reason for Visit * Reason Comments Med Refill Encounter Details Date Type Department Care Team (Late st Contact Info) Description 05/25/2019 Refill [facility] [address] [place], [place] [address] Nirmal Huizar MD [address] [place] [address] Social History Tobacco Use Types Packs/Day Years Used Date Smoking Tobacco: Never Assessed Sex and Gender Information Value Date Recorded Sex Assigned at Not on file Legal Sex Male 1:57 AM [facility] Gender Identity Not on file Sexual Orientation Not on file documented as of this encounter Plan of Treatment Not on file documented as of this encounter Visit Diagnoses Not on filedocumented in this encounter Care Teams Real Estate Administrative Assistant Relationship Specialty Start Date End Date Romero Licea MD PCP - General Family Medicine 06/27/19 05/27/24 Romero Licea MD [address] [place] [address] PCP - Medicare Advantage - Attributed PCP 10/09/22 07/10/23 Renee Mora DO [address] [place] [address] PCP - Medicare Advantage - Attributed PCP 07/11/23 06/09/24 Renee Mora DO [address] [place] [address] PCP - General Family Medicine 06/04/24 Shanae Zarate MD [address] [facility] [place] [address] Consulting Physician Cardiology 10/13/20 Princess Monroy LCSW [address] [place] [address] Cardroom Attendant Quality Control Chemist 10/31/20 05/27/24 Luh Nash, HunterD [address] [place] [address] Clinical Pharmacist Pharmacy 11/24/20 03/04/22 Cathy Tee, KAMERON [address] [place] [address] [place] [address] Induction Coordination Engineer ( Nurse) Care Management 08/17/21 documented as of this encounter
--- OUTSIDE RECORDS SUMMARY | 2025-07-10 14:46 | XMS_ITS | Encounter Summary ---
Author Organization [facility] Address [address] [place] [address] Care Team Providers Care Field Service Technician Name Role Phone Romero Licea MD Primary Care Provi clifton Shana Mike OPERATIONS SECTION MANAGER Unavailable [phone] Julius Canseco MD Unavailable Encounter Details Date Type Department Care Team (Late st Contact Info) Description 04/11/2023 Procedure Pass [facility] Surgery [address] [place] [address] Social History Tobacco Use Types [...] filedocumented in this encounter Care Teams Field Service Technician Relationship Specialty Start Date End Date Romero Licea MD [address] [place], [place] [phone] PCP - General Family Medicine 08/03/21 Shana Mike NP [address] [place], [place] [phone] Nurse Practitioner Physical Medicine and Rehabilitation 11/15/22 Julius Canseco MD [address] [place] [address] Consulting Physician Physical Medicine and Rehabilitation 04/11/23 documented as of this encounter
--- OUTSIDE RECORDS SUMMARY | 2025-07-10 14:46 | XMS_ITS | Encounter Summary ---
Author Organization [facility] Address [address] [place] [address] Care Team Providers Care Printed Circuit Board Assembler Name Role Phone Romero Licea MD Primary Care Provider Shanae Zarate MD Unavailable Princess Monroy COMMERCIAL LOAN ASSISTANT Unavailable [phone] Luh NashD Unavailable Cathy Tee RN Unavailable Romero Licea MD Unavailable Renee Mora DO Unavailable Renee Mora DO Primary Care Provider Reason for Visit * Reason Comments Med Refill Encounter Details Date Type Department Care Team (Late st Contact Info) Description 06/27/2019 Refill [facility] [address] [place], [place] [address] Nirmal Huizar MD [address] [place] [address] Social History Tobacco Use Types Packs/Day Years [...] on filedocumented in this encounter Care Teams Printed Circuit Board Assembler Relationship Specialty Start Date End Date Romero Licea MD PCP - General Family Medicine 06/27/19 05/27/24 Romero Licea MD [address] [place] [address] PCP - Medicare Advantage - Attributed PCP 10/09/22 07/10/23 Renee Mora DO [address] [place] [address] PCP - Medicare Advantage - Attributed PCP 07/11/23 06/09/24 Renee Mora DO [address] [place] [address] PCP - General Family Medicine 06/04/24 Shanae Zarate MD [address] [place] [address] Consulting Physician Cardiology 10/13/20 Princess Monroy LCSW [address] [place] [address] Prep Person Division Engineer 10/31/20 05/27/24 Luh Nash, HunterD [address] [place] [address] Clinical Pharmacist Pharmacy 11/24/20 03/04/22 Cathy Tee, KAMERON [address] [place] [address] [facility] [place] [address] Mathematics Faculty Member ( Nurse) Care Management 08/17/21 documented as of this encounter
== END 2025-07-10 14:27 | disposition home or self-care (01) ==
LOC: HO.HNS 13:19
PROVIDERS: PCP Physician Assistant; Visit Provider Physician Assistant
DX: M54.50 Low back pain, unspecified (principal); M79.605 Pain in left leg
CPT/HCPCS: 99024

== ENCOUNTER → 2025-07-10 13:18 | Outpatient (BNVA) | payer MEDICARE, SELFPAY | PROVIDERS: PCP Physician Assistant; Visit Provider Physician Assistant | DX: Z48.811 Encounter for surgical aftercare following surgery on the nervous system (principal); M54.50 Low back pain, unspecified; M79.605 Pain in left leg | CPT/HCPCS: 99212 ==